=== PATIENT | male | born 1960 | race Caucasian/White ===

== ENCOUNTER → 2016-11-29 | Outpatient (CLI) | payer MEDICAID ==
--- OUTSIDE RECORDS SUMMARY | 2016-11-29 09:59 | XMS REPORT | Continuity of Care Document ---
Author Author Interface Organization Interface Address Unknown Phone Unavailable Problems Problem Status Onset Date Classification Date Reported Comments Source No data available for this section Problem 07/18/2014 [facility] Acute exacerbation of chronic obstructive airways disease (disorder) Active Problem 10/30/2016 [facility] Impaired cognition (finding) Active Problem 10/30/2016 [facility] Severe chronic obstructive pulmonary disease (disorder) Active Problem 10/30/2016 [facility] Acute exacerbation of chronic obstructive airways disease (disorder) Active Problem 10/02/2015 [facility] Impaired cognition (finding) Active Problem 10/02/2015 [facility] Severe chronic obstructive pulmonary disease (disorder) Active Problem 10/02/2015 [facility] Acute exacerbation of chronic obstructive airways disease (disorder) Active Problem 09/12/2014 [facility] Acute exacerbation of chronic obstructive airways disease (disorder) Active Problem 10/05/2014 [facility] Obstructive chronic bronchitis with (acute) exacerbation 08/04/2014 Diagnosis 08/08/2014 [facility] Unspecified persistent mental disorders due to conditions classified elsewhere 10/28/2014 Diagnosis 11/01/2014 [facility] Chronic airway obstruction, not elsewhere classified 10/28/2014 Diagnosis 11/01/2014 [facility] Echocardiogram abnormal (finding) 09/28/2015 Diagnosis [facility] Smoker (finding) 10/12/2015 Diagnosis 10/16/2015 [facility] Severe chronic obstructive pulmonary disease (disorder) 10/12/2015 Diagnosis 10/16/2015 [facility] Benign neoplasm of colon Diagnosis 09/19/2014 [facility] Medications Medication Details Route Status Patient Instructions Ordering Provider Order Date Source No Known Medications No known medications Active [facility] Allergies, Adverse Reactions, Alerts Substance Category Reaction Severity Reaction type Status Date Reported Comments Source Immunizations Immunization Date Given Site Status Last Updated Comments Source pneumococcal polysaccharide PPV23 08/03/2014 Right Deltoid pneumococcal 23-valent vaccine Michael [facility]. influenza virus vaccine 08/03/2014 Right Deltoid influenza virus vaccine Michael [facility]. pneumococcal polysaccharide PPV23 08/03/2014 Right Deltoid pneumococcal 23-valent vaccine Michael [facility]. influenza virus vaccine 08/03/2014 Right Deltoid influenza virus vaccine Michael [facility]. pneumococcal polysaccharide PPV23 08/03/2014 Right Deltoid pneumococcal 23-valent vaccine Michael [facility]. influenza virus vaccine 08/03/2014 Right Deltoid influenza virus vaccine Michael [facility]. pneumococcal polysaccharide PPV23 08/03/2014 Right Deltoid pneumococcal 23-valent vaccine Michael [facility] influenza virus vaccine 08/03/2014 Right Deltoid influenza virus vaccine Michael [facility]. No data available for this section No data available for this section [facility]. Results Order Name Results Value Reference Range Date Interpretation Comments Source Vital Signs Vital Sign Value Date Comments Source Encounters Location Location Details Encounter Type Encounter Number Reason For Visit Attending Provider ADM Date DC Date Status Source [facility] [id number] Outpatient [id number] Shantell Burton 03/03/2014 Active [facility] CD:[id number] Inpatient [id number] Bill Joel 08/02/2014 08/04/2014 Active [facility] in Pulmonary Medicine Cancel/No Show [id number] Francisco Hernadez 08/16/2015 08/16/2015 [facility] [id number] Atul Corona 09/28/2015 [facility] Medicine Clinic [id number] Hermelinda Bautista 10/12/2015 10/13/2015 [facility]orate Clerk in Pulmonary Medicine Cancel/No Show [id number] Francisco Hernadez 08/16/2015 08/15/2015 [facility] Cancel/ No Show [id number] Errol Sanchez 07/28/2015 07/28/2015 [facility] Cancel/ No Show [id number] . [facility] 06/17/2015 06/16/2015 [facility] Clerk in Pulmonary Medicine Cancel/No Show [id number] Lasha Osmani 04/21/2015 04/21/2015 [facility] Medicine Clinic [id number] Katerin Dean 10/27/2014 10/11/2014 [facility] Cancel/No Show [id number] Sánchez [facility] 09/09/2014 09/08/2014 [facility] [id number] Atul Cj 09/30/2014 10/02/2014 [facility] Pul[facility] Medicine Clinic [id number] Janett Fang 10/13/2014 09/29/2014 [facility] [id number] [facility] 09/15/2014 09/16/2014 [facility]. Outpatient [id number] Atul Corona 07/14/2014 07/15/2014 [facility] [id number] Atul Corona 08/02/2014 08/04/2014 [facility]. Emergency [id number] Raz Chavez 08/18/2014 08/20/2014 [facility] CD:[id number] Outpatient [id number] [facility] 09/15/2014 09/15/2014 Active [facility]orate Clerk in Pulmonary Medicine Cancel/No Show [id number] 10/28/2014 10/28/2014 [facility] [id number] Outpatient [id number] Atul Corona 07/14/2014 Active [facility] [id number] Clinic ( Outpatient) [id number] Errol Sanchez 07/28/2015 Active [facility]. Outpatient [id number] Shantell Sab 03/03/2014 03/04/2014 [facility] CD:[id number] Emergency [id number] Raz Chavez 08/18/2014 08/18/2014 Active [facility] in Pul[facility] Medicine Clinic [id number] Lasha Keen 10/28/2014 10/29/2014 [facility] CD:[id number] Clinic ( Outpatient) [id number] Delonte Adrian 09/28/2015 Active [facility] CD:[id number] Outpatient [id number] Atul Corona 09/30/201408/2014 Active [facility] [id number] Clinic ( Outpatient) [id number] Hermelinda Bautista 10/12/2015 Active [facility] CD:[id number] Clinic ( Outpatient) [id number] Francisco Hernadez 08/16/2015 Active [facility] CD:[id number] Clinic ( Outpatient) [id number] Francisco Hernadez 08/16/2015 Active [facility] CD:[id number] Clinic ( Outpatient) [id number] . [facility] IN[facility] 06/16/2015 Active [facility] [id number] Clinic ( Outpatient) [id number] Lasha Keen 04/21/2015 Active [facility] CD:[id number] Clinic ( Outpatient) [id number] 10/28/2014 Active [facility] [id number] Clinic ( Outpatient) [id number] Lasha Keen 10/28/2014 Active [facility] CD:[id number] Clinic ( Outpatient) [id number] Katerin Dean 10/27/2014 Active [facility] [id number] Clinic ( Outpatient) [id number] Janett Fang 10/13/2014 Active [facility] CD:[id number] Clinic ( Outpatient) [id number] Sánchez Real 09/09/2014 Active [facility] CD:[id number] Outpatient [id number] Shantell Josephine 12/11/2013 Active [facility] [id number] Clinic ( Outpatient) [id number] Lasha Keen 10/26/2016 Active [facility] Cancel/No Show [id number] Lasha Osmani 10/26/2016 10/26/2016 [facility] Procedures Procedure Code Date Perfomer Comments Source No data available for this section [facility]. Echocardiogram<sup>1</sup> 06/15/2015 EF 45% </br>[facility]. Colonoscopy, flexible, proximal to splenic flexure; diagnostic, with or without collection of specimen(s) by brushing or washing, with or without colon decompression (separate procedure) 09/15/2014 [facility]. left and right knee surgery [facility].
--- NOTE | 2016-11-29 14:34 | Diagnostic Imaging Report ---
INDICATION: COPD, dyspnea, respiratory distress. COMPARISON: 09/12/2016. FINDINGS: Chronic rib deformities on the right are stable. New infiltrate in the lower lobe is seen in the lateral view; however, it is not clearly identified in the frontal projection and does not extend to the diaphragm. I am uncertain if this is left or right. The upper lobes are clear. The heart size is normal. IMPRESSION: New lower lobe infiltrate posteriorly is seen only on the lateral view compatible with pneumonia. Followup PA and lateral radiographs to confirm its resolution recommended. This finding is superimposed upon chronic COPD and chronic rib deformities; otherwise, unchanged. Dictated by: Dictated on workstation # [id number]
== END ==
LOC: RAD 09:54
PROVIDERS: ATTEND Internal Medicine Critical Care Medicine
DX: J43.9 Emphysema, unspecified (principal); R06.00 Dyspnea, unspecified; E66.9 Obesity, unspecified
CPT/HCPCS: 71020

== ENCOUNTER → 2016-12-07 | Outpatient (CLI) | payer MEDICAID ==
[~2016-12-07] MED LIST: RT-ALBUTEROL SULF 2.5 MG/3 ML PRE-MIX VIAL INH ONE
== END ==
LOC: RT 12:44
PROVIDERS: ATTEND Internal Medicine Critical Care Medicine
DX: J43.9 Emphysema, unspecified (principal); R06.00 Dyspnea, unspecified; E66.9 Obesity, unspecified
CPT/HCPCS: 94060; 94640; 94726; 94729

== ENCOUNTER → 2017-01-10 | Outpatient (CLI) | payer MEDICAID ==
--- NOTE | 2017-01-10 13:40 | Diagnostic Imaging Report ---
INDICATION: Dyspnea and COPD. PA and lateral chest obtained at 12:51 p.m. and compared with 11/29/2016. Heart is normal in size. Mediastinal silhouette is unremarkable. There are mild chronic-appearing increased interstitial markings. There is no new infiltrate or pneumothorax or pleural fluid. There is hyperinflation compatible with COPD. There are old bilateral rib fractures. IMPRESSION: Chronic changes appear similar to 11/29/2016. No acute abnormalities visualized. Dictated by: Dictated on workstation # [id number]
== END ==
LOC: RAD 12:24
PROVIDERS: ATTEND Internal Medicine Critical Care Medicine
DX: J44.9 Chronic obstructive pulmonary disease, unspecified (principal); F41.9 Anxiety disorder, unspecified; E66.9 Obesity, unspecified
CPT/HCPCS: 71020

== ENCOUNTER → 2017-05-29 | Outpatient (CLI) | payer MEDICAID ==
--- NOTE | 2017-05-29 17:08 | Diagnostic Imaging Report ---
INDICATION: Wheezing, COPD. FINDINGS: PA and lateral chest shows the heart size and vascularity to be normal. There is obstructive airway disease with no mass or infiltrate seen. There is no pleural effusion. IMPRESSION: COPD. No acute abnormality is seen. There is no change from 01/10/2017. Dictated by: Dictated on workstation # [id number]
== END ==
LOC: RAD 16:43
PROVIDERS: ATTEND Family Medicine
DX: J44.9 Chronic obstructive pulmonary disease, unspecified (principal)
CPT/HCPCS: 71020

== ENCOUNTER → 2017-06-06 | Outpatient (CLI) | payer MEDICAID ==
--- NOTE | 2017-06-06 11:17 | Diagnostic Imaging Report ---
Hepatic ultrasound. INDICATION: Hepatitis C. There are no prior studies available for comparison. The liver is at the upper limits of normal measuring 17 cm in maximum dimension. There is no focal mass involving the liver, and the biliary tree is not abnormally dilated. Spectral and color flow imaging of the portal vein shows that the vein is patent and that there is normal directional flow within the vein. The gallbladder is not well visualized, and there is considerable shadowing coming from the gallbladder fossa. I do suspect that the gallbladder is filled with calculi. Because of the shadowing, the gallbladder wall and the common bile duct could not be visualized either. If there is clinical concern regarding an acute abnormality of the gallbladder, then a nuclear medicine hepatobiliary scan would be recommended for further study. The right kidney is unremarkable. The pancreas was obscured by bowel gas. IMPRESSION: 1. The liver is not enlarged, and there is no focal abnormality involving the liver. 2. The gallbladder is most likely filled with calculi. Additional considerations and recommendations as above. Dictated by: Dictated on workstation # [id number]
== END ==
LOC: RAD 09:41
PROVIDERS: ATTEND Internal Medicine Gastroenterology
DX: B18.2 Chronic viral hepatitis C (principal); K87 Disorders of gallbladder, biliary tract and pancreas in diseases classified elsewhere
CPT/HCPCS: 76705

== ENCOUNTER 2017-06-18 07:54 | Day surgery (SDC) | payer MEDICAID ==
[2017-06-18] VITALS (10 sets, daily range): BP systolic 108–132; BP diastolic 65–88
[~2017-06-18] VITALS: Ht 171.4 cm; Wt 98.0 kg
[2017-06-18] MEDS ORDERED: HEParin (CATH LAB) 2,000 ML IV ONE (07:57)
[2017-06-18] MEDS ORDERED: NS IV 1000 ML 1,000 ML ONE (07:57)
--- OUTSIDE RECORDS SUMMARY | 2017-06-18 08:00 | XMS REPORT | Continuity of Care Document ---
Author Author [employer] Organization [employer] Address Unknown Phone Unavailable Care Team Providers Care Special Education Kindergarten Teacher Name Role Phone [employer] Unavailable Unavailable Problems Problem Status Onset Date Classification Date Reported Comments Source Smoker (finding) 10/12/2015 Diagnosis 10/16/2015 [facility] Severe chronic obstructive pulmonary disease (disorder) 10/12/2015 Diagnosis 10/16/2015 [facility] Echocardiogram abnormal (finding) 09/28/2015 Diagnosis [facility] Unspecified persistent mental disorders due to conditions classified elsewhere 10/28/2014 Diagnosis 11/01/2014 [facility] Chronic airway obstruction, not elsewhere classified 10/28/2014 Diagnosis 11/01/2014 [facility] Benign neoplasm of colon Diagnosis 09/19/2014 [facility] Obstructive chronic bronchitis with (acute) exacerbation 08/04/2014 Diagnosis 08/08/2014 [facility] Acute exacerbation of chronic obstructive airways disease (disorder) Active Problem 10/02/2015 [facility], [facility], [facility], [facility] Impaired cognition (finding) Active Problem 10/02/2015 [facility], [facility] Severe chronic obstructive pulmonary disease (disorder) Active Problem 10/02/2015 [facility], [facility] No data available for this section Problem 07/18/2014 [facility] Medications Medication Details Route Status Patient Instructions Ordering Provider Order Date Source No Known Medications No known medications Active [facility] Allergies, Adverse Reactions, Alerts Immunizations Immunization Date Given Site Status Last Updated Comments Source pneumococcal polysaccharide PPV23 08/03/2014 Right Deltoid pneumococcal 23-valent vaccine Michael [facility], [facility], [facility], [facility], [facility]. influenza virus vaccine 08/03/2014 Right [facility]to[facility], [facility], [facility], [facility], [facility]. No data available for this section No data available for this section [facility]. Results Vital Signs Encounters Location Location Details Encounter Type Encounter Number Reason For Visit Attending Provider ADM Date DC Date Status Source [facility] CD:[id number] Outpatient [id number] [facility] 12/11/2013 Active [facility] CD:[id number] Outpatient [id number] [facility] 03/03/2014 Active [facility] CD:[id number] Outpatient [id number] Atul Corona 07/14/2014 [facility], [facility]. [facility] CD:[id number] Inpatient [id number] Bill Joel 08/02/2014 08/04/2014 [facility] CD:[id number] Emergency [id number] Raz Chavez 08/18/2014 08/18/2014 Active [facility], [facility] Cancel/No Show [id number] [facility] 09/09/2014 09/08/2014 [facility] CD:[id number] Outpatient [id number] Sánchez Fleming [facility] 09/15/2014 09/15/2014 Active [facility], [facility]. [facility] CD:[id number] Outpatient [id number] Atul Corona 09/30/201408/2014 Active [facility], [facility]. [employer] [facility] [facility] in Pulmonary Medicine Clinic [id number] Janett Fang 10/13/2014 09/29/2014 [facility] [employer] [facility] Pul[facility] Medicine Clinic [id number] Katerin Dean 10/27/2014 10/11/2014 [facility] [employer] [facility] in Pulmonary Medicine Cancel/No Show [id number] 10/28/2014 10/28/2014 [facility] [employer] [facility] Pulmonary Medicine Clinic [id number] Lasha Keen 10/28/2014 10/29/2014 [facility] CD:[id number] Clinic ( Outpatient) [id number] Lasha Keen 04/21/2015 Active [facility] CD:[id number] Clinic ( Outpatient) [id number] . INR Clinic 06/16/2015 Active [facility] CD:[id number] Clinic ( Outpatient) [id number] Errol Sanchez 07/28/2015 Active [facility] CD:[id number] Clinic ( Outpatient) [id number] Nolan Hernadez 08/16/2015 Active [facility] [employer] Mixer in Pulmonary Medicine Cancel/No Show [id number] Francisco Hernadez 08/16/2015 08/15/2015 [facility] Card[facility] Services Clinic [id number] Atul Corona 09/28/2015 [facility] [employer] Mix[facility] in Pulmonary Medicine Clinic [id number] Hermelinda Bautista 10/12/2015 10/13/2015 [facility] Cancel/No Show [id number] Lasha Keen 10/26/2016 10/26/2016 [facility] Procedures Procedure Code Date Perfomer Comments Source Echocardiogram<sup>1</sup> 06/15/2015 EF 45% [facility] Services Colonoscopy, flexible, proximal to splenic flexure; diagnostic, with or without collection of specimen(s) by brushing or washing, with or without colon decompression (separate procedure) 09/15/2014 [facility], [facility]. No data available for this section [facility] left and right knee surgery [facility] Plan of Care Social History Assessment and Plan Family History Value Date Source Advance Directives Order Name Results Value Date Source
--- OUTSIDE RECORDS SUMMARY | 2017-06-18 08:01 | XMS REPORT | Clinical Summary ---
Author Author [facility] Organization [facility] Address Unknown Phone Unavailable Care Team Providers Care Ticket Agent Name Role Phone PCP Unavailable Source Comments Some departments are not documenting in the electronic medical record. If you do not see the information that you expected, contact Release of Information in the Health Information Management department at [phone] for further assistance in locating additional records.[facility] Allergies No Known Allergies Current Medications Prescription Sig. Disp. Refills Start End Date Status Date ABILIFY PO 10/08/20 Active 07 Active Problems Not on file Social History Tobacco Use Types Packs/Day Years Used Date Current Every Day Smoker 1 Sex Assigned at Date Recorded Not on file Last Filed Vital Signs Vital Sign Reading Time Taken Blood Pressure 133/71 10/08/2007 11:36 PM [employer] Pulse 94 10/08/2007 11:36 PM [employer] Temperature 36.1 C (97 F) 10/08/2007 11:36 PM [employer] Respiratory Rate - - Oxygen Saturation 93% 10/08/2007 11:36 PM [employer] Inhaled Oxygen - - Concentration Weight - - Height - - Body Mass Index - - Plan of Treatment Health Maintenance Due Date Last Done Comments HEPATITIS C SCREENING 1958 PHYSICAL (COMPREHENSIVE) 1965 EXAM PERTUSSIS VACCINE 1969 TETANUS VACCINE 1975 COLORECTAL CANCER 2008 SCREENING INFLUENZA VACCINE 06/21/2017 Results Not on filefrom Last 3 Months
[2017-06-18] MEDS ORDERED: NS IV 1000 ML 1,000 ML IV SCH ×2 (08:30→10:50)
[2017-06-18 08:49] LABS: MEAN PLATELET VOLUME 10.9 FL (7.4-10.4); RED BLOOD COUNT 5.69 10^6/uL (4.35-5.85); RED CELL DISTRIBUTION WIDTH 13.6 % (10.0-14.5); WHITE BLOOD COUNT 8.7 10^3/uL (4.3-11.0)
[2017-06-18 08:59] LABS: INR 0.9 (0.8-1.4); PROTHROMBIN TIME PATIENT 11.8 SEC (12.2-14.7)
[2017-06-18 09:08] LABS: ALANINE AMINOTRANSFERASE 93 U/L (0-55); ALBUMIN 3.4 GM/DL (3.2-4.5); ANION GAP 8 MMOL/L (5-14); ASPARTATE AMINO TRANSFERASE 119 U/L (5-34); BILIRUBIN,TOTAL 0.9 MG/DL (0.1-1.0); BLOOD UREA NITROGEN 12 MG/DL (7-18); BUN/CREATININE RATIO 15; CARBON DIOXIDE 30 MMOL/L (21-32); CHLORIDE 103 MMOL/L (98-107); CHOLESTEROL 137 MG/DL (< 200); CREATININE SERUM 0.82 MG/DL (0.60-1.30); DIRECT LDL 89 MG/DL (1-129); GFR ESTIMATED > 60; GLUCOSE 110 MG/DL (70-105); POTASSIUM 4.1 MMOL/L (3.6-5.0); SODIUM 141 MMOL/L (135-145); TOTAL PROTEIN 7.2 GM/DL (6.4-8.2); TRIGLYCERIDES 137 MG/DL (<150); VLDL CHOLESTEROL 27 MG/DL (5-40)
[2017-06-18 09:28] LABS: THYROID STIMULATING HORMONE 2.37 UIU/ML (0.35-4.94)
[2017-06-18] MEDS ORDERED: PANT40TA2 PO (09:50)
[2017-06-18] MEDS ORDERED: ASPI-983 PO (09:50)
[2017-06-18] MEDS ORDERED: BUDE10.2 IH (09:50)
[2017-06-18] MEDS ORDERED: FLUT1DIS26 IH (09:50)
[2017-06-18] MEDS ORDERED: FURO-125 PO (09:50)
[2017-06-18] MEDS ORDERED: ESCI20TA PO (09:50)
[2017-06-18] MEDS ORDERED: BENZ200C51 PO (09:50)
[2017-06-18] MEDS ORDERED: ACET325T38 PO (09:50)
[2017-06-18] MEDS ORDERED: LISI2.5T PO (09:50)
[2017-06-18] MEDS ORDERED: MULT-593 PO (09:50)
[2017-06-18] MEDS ORDERED: METO-333 PO (09:50)
[2017-06-18] MEDS ORDERED: IPRA3AMP IH (09:50)
[2017-06-18] MEDS ORDERED: ARPZ20T PO (09:50)
[2017-06-18] MEDS ORDERED: fentaNYL INJECTION 100 MCG/2 ML AMP ONE (09:53)
[2017-06-18] MEDS ORDERED: MIDAZOLAM 5 MG/5 ML (VERSED) VIAL ONE (09:53)
[2017-06-18] MEDS ORDERED: diphenhydrAMINE 50 MG/ML INJ (BENADRYL) ONE (09:53)
--- NOTE | 2017-06-18 10:26 | Cardiac Procedure Note-CS/ASA ---
Pre-Procedure Note Pre-Op Procedure Note H&P Reviewed The H&P was reviewed, patient examined and no changes noted. Date H&P Reviewed: Jun 18, 2017 Time H&P Reviewed: 10:25 Conscious Sedation Pre-Proced Time Reviewed: 10:25 ASA Class: 3 Airway Mallampati Classification: (nome appropriate class) I. II. III, IV Lungs Heart ASA score ASA 1: a normal healthy patient ASA 2: a patient with a mild systemic disease (mid diabetes, controlled hypertension, obesity ASA 3: a patient with a severe systemic disease that limits activity (angina , COPD, prior Myocardial infarction) ASA 4: a patient with an incapacitating disease that is a constant threat to life (CHF, renal failure) ASA 5: a moribund patient not expected to survive 24 hrs. (ruptured aneurysm) ASA 6: a declared brain patient whose organs are being harvested. For emergent operations, add the letter E after the classification Grade 1 Sedation Plan: Analgesia, Amnesia, Plan communicated to team members, Discussed options with patient/fam, Discussed risks with patient/fam Note The patient is an appropriate candidate to undergo the planned procedure, sedation, and anesthesia. The patient immediately re-assessed prior to indication. ERIN HUTCHINSON MD FACP FAC [facility]S Jun 18, 2017 10:25
--- NOTE | 2017-06-18 10:53 | Discharge Inst-Post CATH ---
Discharge Inst-CATH Post Cardiac Cath D/C Inst Follow Up/Plan F/u with Dr Poe in 2 weeks CARDIAC CATH DISCHARGE INSTRUCTIONS *Hold Metformin for 48 hours post heart cath. ACTIVITY * Go Home directly and rest. * Limit activity of the leg (or wrist if it was used) for 7 days including aerobics, swimming, jogging, bicycling, etc. * Restrict stair-climbing for 7 days if possible, if not, climb up with your non -cath leg, then bring together on the same step. * Avoid lifting, pushing, pulling or excessive movement of the affected extremity for 7 days. * Customary sexual activity may be resumed after 2 days-use caution not to use a position that strains or causes pain to the affected extremity. * No driving for 24 hours. * NO SMOKING. * Avoid straining for bowel movements for 7 days. * Gentle walking on level ground is allowed. * Returning to work will depend on the type of procedure and the results. Your doctor will discuss this with you. CALL YOUR DOCTOR FOR ANY OF THE FOLLOWING: *If bleeding from the puncture site occurs- Apply gentle pressure to site with clean cloth and call your doctor or EMS. * If a knot or lump forms under the skin, increases in size, or causes pain. * If bruising appears to be worsening or moving further down your leg instead of disappearing. * Temperature above 101 F. CARE OF YOUR GROIN INCISION; * Bruising or purple discoloration of the skin near the puncture site is common. * You may shower only, no bathtub bathing for 5 days. Be careful to avoid slipping as your leg may feel stiff. * If a closure device was used on your femoral artery, please see the attached guide regarding care of the device and your leg. * REMOVE the dressing from your groin the next day after your procedure in the shower. CARE OF YOUR WRIST INCISION; * Bruising or purple discoloration of the skin near the puncture site is common. * You may shower. * DO NOT submerge wrist. * Remove dressing in 24 hours. ERIN POE MD [facility]S Jun 18, 2017 10:53
--- NOTE | 2017-06-18 10:54 | Discharge Inst-Cardiology ---
Discharge Inst-Cardiac Discharge Medications Continued Medications: Acetaminophen (Tylenol) 325 Mg Tablet 650 MG PO Q6H PRN for PAIN-MILD, TAB TAKES 2 (325MG) TABLETS Aripiprazole (Abilify) 20 Mg Tablet 20 MG PO DAILY, TAB Aspirin (Aspirin EC) 81 Mg Tablet.dr 81 MG PO DAILY, TAB Benzonatate (Benzonatate) 200 Mg Capsule 200 MG PO Q8H PRN for COUGH, CAP Budesonide/Formoterol Fumarate (Symbicort 160-4.5 Mcg Inhaler) 10.2 Gm Hfa.aer.ad 2 PUFF IH BID, INHALER Escitalopram Oxalate (Lexapro) 20 Mg Tablet 40 MG PO DAILY, TAB TAKES 2 (20MG) TABLETS Fluticasone/Salmeterol (Advair 250-50 Diskus) 1 Each Blst.w.dev 1 PUFF IH BID Furosemide (Lasix) 20 Mg Tablet 20 MG PO DAILY, TAB Ipratropium/Albuterol Sulfate (Iprat-Albut 0.5-3(2.5) mg/3 ml) 3 Ml Ampul.neb 3 ML IH Q6H, EACH Lisinopril (Lisinopril) 2.5 Mg Tablet 2.5 MG PO HS, TAB Metoprolol Tartrate (Metoprolol Tartrate) 25 Mg Tablet 25 MG PO BID, TAB Multivitamin with Minerals (Multiple Vitamin) 1 Each Tablet 1 TAB PO DAILY, TAB Pantoprazole Sodium (Protonix) 40 Mg Tablet.dr 40 MG PO DAILY, TAB Orders-Post D/C & Referrals Pneu Vac Indicated: Yes ERIN HUTCHINSON MD FACP [facility] Jun 18, 2017 10:54
[2017-06-18] MEDS ORDERED: PATIENT MAY USE OWN MEDS, ALL PO SCH (11:00)
--- NOTE | 2017-06-18 11:47 | CARDIAC CATHETERIZATION ---
DATE OF SERVICE: 06/18/2017 CARDIAC CATHETERIZATION The patient is a 57-year-old gentleman who has a history of congestive heart failure and who has been experiencing symptoms suggestive of new onset of angina. Cardiac catheterization was carried out today after having obtained an informed consent. PROCEDURE: He was brought to the cardiac catheterization laboratory in a fasting state. Right groin was prepared and draped in the usual sterile fashion. Lidocaine 1% for local anesthesia. Modified Seldinger technique was used to advance a 5-Bermudian sheath in the right femoral artery. A 5-Bermudian JL4 catheter, left coronary angiography and 5-Bermudian JR4 catheter, right coronary angiography. A 5-Bermudian pigtail catheter was used for left heart catheterization and left ventricular angiography. A 5-Bermudian pigtail catheter was pulled back to the aortic arch and aortic arch angiography was performed. Angiography of the right femoral artery had been carried out through the sheath at the time of sheath insertion. At the end of the procedure, Mynx was used to achieve hemostasis following sheath removal. He tolerated the procedure well. HEMODYNAMICS: Left ventricular end-diastolic pressure following coronary angiography was 13 mmHg. There was no significant pressure gradient on pullback across the aortic valve. Ascending aortic pressure was 104/64 with a mean of 68 mmHg. LEFT VENTRICULAR ANGIOGRAPHY: Left ventricular angiography was carried out in the right anterior oblique projection. Global left ventricular systolic function normal. No regional wall motion abnormalities are seen. Left ventricular ejection fraction is approximately 55% to 60%. There does not appear to be significant mitral regurgitation. CORONARY ANGIOGRAPHY: Left main coronary artery, left circumflex, left anterior descending, right coronary all exhibit mild coronary plaques. There is mild coronary calcification. Right coronary artery is dominant. CONCLUSIONS: 1. Angiographically mild coronary artery disease. 2. Normal global left ventricular systolic function with ejection fraction approximately 55 to 60%. 3. Left ventricular end-diastolic pressure at the top limit of normal. 4. No significant mitral regurgitation. DISCUSSION RECOMMENDATIONS: Based on results of this study, his symptoms do not appear to be of cardiac origin at this time. Continuing risk factor modification is advised. Outpatient followup is advised. He is not a suitable candidate for statin therapy because he has some liver enzyme elevation at baseline, for which followup is advised with his family physician. Job ID: [id number] DocumentID: [id number] Dictated Date: 06/18/2017 11:04:49 Vocational Nursing Instructor Date: 06/18/2017 11:47:15 Dictated By: ERIN HUTCHINSON MD, MA, FACP, FACC, MTDD
== END 2017-06-18 15:20 ==
LOC: CATH 07:54
PROVIDERS: ATTEND Internal Medicine Cardiovascular Disease
DX: R07.89 Other chest pain (principal); I25.10 Atherosclerotic heart disease of native coronary artery without angina pectoris; J44.9 Chronic obstructive pulmonary disease, unspecified; I10 Essential (primary) hypertension; F31.9 Bipolar disorder, unspecified; R47.81 Slurred speech; Z72.0 Tobacco use; Z79.899 Other long term (current) drug therapy; Z82.49 Family history of ischemic heart disease and other diseases of the circulatory system
CPT/HCPCS: 36415; 80053; 80061; 84443; 85027; 85610; 85730; 87081; 93458

== ENCOUNTER → 2017-07-22 | Outpatient (CLI) | payer MEDICAID ==
[~2017-07-22] MED LIST changes: +ACET325T38 PO; +ARPZ20T PO; +ASPI-983 PO; +BENZ200C51 PO; +BUDE10.2 IH; +ESCI20TA PO; +FLUT1DIS26 IH; +FURO-125 PO; +IPRA3AMP IH; +LISI2.5T PO; +METO-333 PO; +MULT-593 PO; +PANT40TA2 PO; -RT-ALBUTEROL SULF 2.5 MG/3 ML PRE-MIX VIAL INH ONE
== END ==
LOC: CARD 07:57
PROVIDERS: ATTEND Internal Medicine Cardiovascular Disease
DX: R07.89 Other chest pain (principal); R06.02 Shortness of breath; I10 Essential (primary) hypertension; J44.9 Chronic obstructive pulmonary disease, unspecified; Z72.0 Tobacco use
CPT/HCPCS: 93306

== ENCOUNTER → 2017-07-26 | Outpatient (CLI) | payer MEDICAID ==
--- NOTE | 2017-07-26 15:03 | Diagnostic Imaging Report ---
INDICATION: Wheezing with low-grade fever. History of COPD. COMPARISON: 05/29/2017. FINDINGS: There is obstructive interstitial lung disease. No acute infiltrates are demonstrated. The heart is not enlarged. There is no pulmonary edema. No hilar adenopathy. No pneumothorax or pleural effusion. IMPRESSION: Obstructive interstitial lung disease without acute change. Dictated by: Dictated on workstation # [id number]
== END ==
LOC: RAD 14:13
PROVIDERS: ATTEND Family Medicine
DX: J84.9 Interstitial pulmonary disease, unspecified (principal); J06.9 Acute upper respiratory infection, unspecified
CPT/HCPCS: 71020

== ENCOUNTER 2017-08-01 13:36 | Emergency (ER) | payer MEDICAID ==
[~2017-08-01] VITALS: Ht 170.2 cm; Wt 104.3 kg
--- OUTSIDE RECORDS SUMMARY | 2017-08-01 13:42 | XMS REPORT | Continuity of Care Document ---
Author Author [employer] Organization [employer] Address Unknown Phone Unavailable Care Team Providers Care Instrumental Music Teacher Name Role Phone [employer] Unavailable Unavailable Problems Problem Status Onset Date Classification Date Reported Comments Source Smoker (finding) 10/12/2015 Diagnosis 10/16/2015 [facility] Severe chronic obstructive pulmonary disease (disorder) 10/12/2015 Diagnosis 10/16/2015 [facility] Echocardiogram abnormal (finding) 09/28/2015 Diagnosis [facility] Unspecified persistent mental disorders due to conditions classified elsewhere 10/28/2014 Diagnosis 11/01/2014 [facility] Chronic airway obstruction, not elsewhere classified 10/28/2014 Diagnosis 11/01/2014 [facility] Benign neoplasm of colon Diagnosis 09/19/2014 [facility] Obstructive chronic bronchitis with (acute) exacerbation 08/04/2014 Diagnosis 08/08/2014 [facility] Acute exacerbation of chronic obstructive airways disease (disorder) Active Problem 10/02/2015 [facility], [facility], [facility], [facility] Impaired cognition (finding) Active Problem 10/02/2015 [facility], [facility] Severe chronic obstructive pulmonary disease (disorder) Active Problem 10/02/2015 [facility], [facility] No data available for this section Problem 07/18/2014 [facility] Medications Medication Details Route Status Patient Instructions Ordering Provider Order Date Source No Known Medications No known medications Active [facility] Allergies, Adverse Reactions, Alerts Immunizations Immunization Date Given Site Status Last Updated Comments Source pneumococcal polysaccharide PPV23 08/03/2014 Right Deltoid pneumococcal 23-valent vaccine Michael [facility], [facility], [facility], [facility], [facility]. influenza virus vaccine 08/03/2014 Right Deltoid influenza virus [facility], [facility], [facility], [facility]. No data available for this section No data available for this section [facility]. Results Vital Signs Encounters Location Location Details Encounter Type Encounter Number Reason For Visit Attending Provider ADM Date DC Date Status Source [facility] [id number] Outpatient [id number] [facility] 12/11/2013 Active [facility]. [facility] [id number] Outpatient [id number] [facility] 03/03/[address] [facility] [place] [id number] Outpatient [id number] Atul Corona 07/14/2014 [facility], [facility]. [facility] [id number] Inpatient [id number] Bill Joel 08/02/2014 08/04/2014 [facility] [id number] Emergency [id number] Raz Chavez 08/18/2014 08/18/2014 Active [facility], [facility]ancel[facility]No Show [id number] [facility] 09/09/2014 09/08/2014 [facility] [id number] Outpatient [id number] Sánchez Fleming [facility] 09/15/2014 09/15/2014 Active [facility], [facility]. [facility] [id number] Outpatient [id number] Atul Corona 09/30/201408/2014 Active [facility], [facility]. [facility] [id number] Janett Fang 10/13/2014 09/29/2014 [facility] [id number] Katerin Dean 10/27/2014 10/11/2014 [facility] Cancel/No Show [id number] 10/28/2014 10/28/2014 [facility] [id number] Lasha Keen 10/28/2014 10/29/2014 [facility] [id number] Clinic ( Outpatient) [id number] Lasha Keen 04/21/2015 Active [facility] [id number] Clinic ( Outpatient) [id number] . INR Clinic 06/16/2015 Active [facility] [id number] Clinic ( Outpatient) [id number] Errol Sanchez 07/28/2015 Active [facility] [id number] Clinic ( Outpatient) [id number] Nolan Hernadez 08/16/2015 Active [facility] Cancel/No Show [id number] Francisco Hernadez 08/16/2015 08/15/2015 [facility] Clinic [id number] Atul Corona 09/28/2015 [facility] [id number] Hermelinda Bautista 10/12/2015 10/13/2015 [facility] Cancel/No Show [id number] Lasha Keen 10/26/2016 10/26/2016 [facility] Procedures Procedure Code Date Perfomer Comments Source Echocardiogram<sup>1</sup> 06/15/2015 EF 45% [facility] Colonoscopy, flexible, proximal to splenic flexure; diagnostic, with or without collection of specimen(s) by brushing or washing, with or without colon decompression (separate procedure) 09/15/2014 [facility], [facility]. No data available for this section [facility] left and right knee surgery [facility] Plan of Care Social History Assessment and Plan Family History Value Date Source Advance Directives Order Name Results Value Date Source
--- OUTSIDE RECORDS SUMMARY | 2017-08-01 13:45 | XMS REPORT | Clinical Summary ---
Author Author [facility] Organization [facility] Address Unknown Phone Unavailable Care Team Providers Care Cytotechnologist/Cytology Supervisor Name Role Phone PCP Unavailable Source Comments Some departments are not documenting in the electronic medical record. If you do not see the information that you expected, contact Release of Information in the Health Information Management department at [phone] for further assistance in locating additional records.[facility] Allergies No Known Allergies Current Medications Prescription Sig. Disp. Refills Start End Date Status Date ABILIFY PO 10/08/20 Active 07 Active Problems Not on file Social History Tobacco Use Types Packs/Day Years Used Date Current Every Day Smoker 1 Sex Assigned at Date Recorded Not on file Last Filed Vital Signs Vital Sign Reading Time Taken Blood Pressure 133/71 10/08/2007 11:36 PM BATTERY TECHNICIAN Pulse 94 10/08/2007 11:36 PM BATTERY TECHNICIAN Temperature 36.1 C (97 F) 10/08/2007 11:36 PM BATTERY TECHNICIAN Respiratory Rate - - Oxygen Saturation 93% 10/08/2007 11:36 PM BATTERY TECHNICIAN Inhaled Oxygen - - Concentration Weight - - Height - - Body Mass Index - - Plan of Treatment Health Maintenance Due Date Last Done Comments HEPATITIS C SCREENING 1960 PHYSICAL (COMPREHENSIVE) 1965 EXAM PERTUSSIS VACCINE 1969 TETANUS VACCINE 1975 COLORECTAL CANCER 2008 SCREENING INFLUENZA VACCINE 07/21/2017 Results Not on filefrom Last 3 Months
[2017-08-01] MEDS ORDERED: RT-ALBUTEROL/IPRATROPIUM 3 ML (DUONEB) VIAL INH ONE (15:15)
--- NOTE | 2017-08-01 15:26 | Diagnostic Imaging Report ---
PA and lateral views of the chest INDICATION: Fall. Findings: The lungs are clear. The heart size is normal. There is no effusion or pneumothorax The mediastinum and cailin appear unremarkable. Old posterior upper right rib fractures are seen. IMPRESSION: No acute process. Dictated by: Dictated on workstation # [id number]
--- NOTE | 2017-08-01 15:34 | Diagnostic Imaging Report ---
PROCEDURE: CT head without contrast. TECHNIQUE: Multiple contiguous axial images were obtained through the brain without the use of intravenous contrast. INDICATION: Fall. FINDINGS: There is no intracranial hemorrhage, edema or mass effect. The brain parenchyma and umanzor-white matter differentiation is preserved. No hydrocephalus. No extra-axial fluid collection seen. The calvarium, the paranasal sinuses and orbits appear grossly unremarkable. There is mucosal thickening seen in the right maxillary sinus. IMPRESSION: No intracranial abnormality. Dictated by: Dictated on workstation # [id number]
--- NOTE | 2017-08-01 15:51 | ED Head Injury ---
General Chief Complaint: Head/Cervical Problems Stated Complaint: HEAD INJ/FALL Nursing Triage Note: Pt here from [facility] [place] w/ staff. Staff reports pt was standing at the desk eating a snack when he began to choke. Pt tried to backup to the wall and fell, hitting the back of his head. Staff reports pt has hematoma to back of head. Staff reports they did have to perform the heimlich maneuver on the pt. Pt c/o pain to R side and back of head. Pt denies SOA at this time. History of Present Illness Time seen by provider: 14:30 Initial Comments Patient is a resident of [facility] [place], operated by [facility], he is on a strict pured diet and the staff believe he was eating pretzels in his room. He came to the desk to go out to smoke and began choking. He backed up to the wall to avoid falling and lost his balance going backwards hitting his posterior head on the wall. The staff helped him he was able to cough and they also did the Heimlich maneuver. The pretzels were evacuated from his mouth. He had no changes in his respiratory or mental status. But complained of the occipital head pain on the left.. Occurred: just prior to arrival Severity: mild Location: occipital Method of Injury: fell Loss of Consciousness: no loss of consciousness Associated Systoms: Denies Symptoms Allergies and Home Medications Allergies Coded Allergies: No Known Drug Allergies (Unverified , 12/07/16) Home Medications Acetaminophen 325 Mg Tablet, 650 MG PO Q6H PRN for PAIN-MILD, (Reported) TAKES 2 (325MG) TABLETS Aripiprazole 20 Mg Tablet, 20 MG PO DAILY, (Reported) Aspirin 81 Mg Tablet.dr, 81 MG PO DAILY, (Reported) Benzonatate 200 Mg Capsule, 200 MG PO Q8H PRN for COUGH, (Reported) Budesonide/Formoterol Fumarate 10.2 Gm Hfa.aer.ad, 2 PUFF IH BID, (Reported) Escitalopram Oxalate 20 Mg Tablet, 40 MG PO DAILY, (Reported) TAKES 2 (20MG) TABLETS Fluticasone/Salmeterol 1 Each Blst.w.dev, 1 PUFF IH BID, (Reported) Furosemide 20 Mg Tablet, 20 MG PO DAILY, (Reported) Ipratropium/Albuterol Sulfate 3 Ml Ampul.neb, 3 ML IH Q6H, (Reported) Lisinopril 2.5 Mg Tablet, 2.5 MG PO HS, (Reported) Metoprolol Tartrate 25 Mg Tablet, 25 MG PO BID, (Reported) Multivitamin with Minerals 1 Each Tablet, 1 TAB PO DAILY, (Reported) Pantoprazole Sodium 40 Mg Tablet.dr, 40 MG PO DAILY, (Reported) Constitutional: no symptoms reported, see HPI Eyes: No Symptoms Reported, See HPI Respiratory: see HPI, wheezing (chronic) Cardiovascular: no symptoms reported, see HPI Gastrointestinal: no symptoms reported, see HPI Genitourinary: no symptoms reported, see HPI All Other Systems Reviewed Negative Unless Noted: Yes Past Xrjsoza-Grghvy-Metyko Hx Patient Social History Alcohol Use: Denies Use Recreational Drug Use: Yes (COCAINE IN PAST) Smoking Status: Current Everyday Smoker Type Used: Cigarettes Recent Foreign Travel: No Contact w/Someone Who Travel: No Recent Infectious Disease Expo: No Surgeries History of Surgeries: No Respiratory History of Respiratory Disorde: Yes Respiratory Disorders: COPD Cardiovascular History of Cardiac Disorders: Yes Gastrointestinal History of Gastrointestinal Di: Yes Gastrointestinal Disorders: Gastroesophageal Reflux Cancer Cancer: Colon Psychosocial History of Psychiatric Problem: Yes Behavioral Health Disorders: Depression Blood Transfusions History of Blood Disorders: Yes (HEP C ?) Reviewed Nursing Assessment Reviewed/Agree w Nursing PMH: Yes Physical Exam Vital Signs Vital Sign - Last 12Hours 08/01/17 14:08 Temp 97.9 Pulse 70 Resp 18 B/P (MAP) 110/61 Pulse Ox 91 O2 Delivery Nasal Cannula O2 Flow Rate 2.00 Capillary Refill : Less Than 3 Seconds General Appearance: WD/WN, no apparent distress HEENT: PERRL/EOMI, normal ENT inspection, TMs normal, pharynx normal Neck: non-tender, full range of motion, supple, normal inspection Cardiovascular: normal peripheral pulses, regular rate, rhythm Respiratory: chest non-tender, no respiratory distress, rhonchi, wheezing Gastrointestinal: normal bowel sounds, non tender, soft Back: normal inspection, no CVA tenderness, no vertebral tenderness Extremities: normal range of motion, non-tender, normal inspection Psychiatric: alert Crainal Nerves: normal hearing, normal speech, PERRL Coordination/Gait: normal gait Motor/Sensory: no motor deficit, no sensory deficit, no pronator drift Skin: normal color, warm/dry, other (small hematoma to the left occipital region, mild tenderness in this region.) [place] Coma Score Best Eye Response: (4) Open Spontaneously Best Verbal Response: (5) Oriented Best Motor Response: (6) Obeys Commands Lyubov Total: 15 Progress/Results/Core Measures Results/Orders My Orders Orders - CANDY ARZATE Ct Head Wo (08/01/17 14:21) Chest Pa/Lat (2 View) (08/01/17 14:49) Rt Request For Service (08/01/17 15:13) Albuterol/Ipra Inhalation Soln (Duoneb I (08/01/17 15:15) Svn Sm Volume Nebulizer Rt-Rfs (08/01/17 15:13) Medications Given in ED Current Medications Medications Dose Ordered Sig/Mi Route Start Time Stop Time Status Last Admin Dose Admin Albuterol/ Ipratropium 3 ml ONCE ONCE INH 08/01/17 15:15 08/01/17 15:16 DC 08/01/17 15:19 3 ML Vital Signs/I&O Vital Sign - Last 12Hours 08/01/17 08/01/17 08/01/17 08/01/17 14:08 15:21 15:31 16:30 Temp 97.9 97.9 Pulse 70 70 Resp 18 18 B/P (MAP) 110/61 Pulse Ox 91 91 O2 Delivery Nasal Cannula Room Air Room Air Room Air O2 Flow Rate 2.00 2.00 Blood Pressure Mean: 77 Progress Note : Time: 14:30 Progress Note Initial evaluation completed, recommended CT head and chest x-ray for risk of aspiration. 1515 DuoNeb treatment with RT, trace improvement after first treatment. Second treatment given and improved air movement noted with less rhonchi and wheezing. Staff present from lung term care facility reports he chronically has wheezing. 1530 chest x-ray and CT head negative for acute pathology. 1545 discharge planning to return to lung term care facility reviewed with the patient and staff, all questions answered. Diagnostic Imaging Diagonstic Imaging: Xray Plain Films/CT/US/NM/MRI: chest Comments NAME: LUIS MANUEL RETANA [facility] REC#: [id number] PT STATUS: REG ER : 1960 PHYSICIAN: CANDY ARZATE ADMIT DATE: 08/01/17/ER Signed Date of Exam: 08/01/17 CHEST PA/LAT (2 VIEW) PA and lateral views of the chest INDICATION: Fall. Findings: The lungs are clear. The heart size is normal. There is no effusion or pneumothorax The mediastinum and cailin appear unremarkable. Old posterior upper right rib fractures are seen. IMPRESSION: No acute process. Dictated by: Dictated on workstation # [id number] Dict: 08/01/17 1514 Trans: 08/01/17 153 Interpreted by: LORI WILSON MD Electronically signed by: LORI WILSON MD 08/01/171530 Reviewed: Reviewed by [place] Diagonstic Imaging: CT Plain Films/CT/US/NM/MRI: head Comments NAME: LAINEYLUIS MANUEL Oates [facility] REC#: [id number] PHYSICIAN: CANDY ARZATE CC: CANDY ARZATE; LORI WILSON MD Page 1 of 1 RADIOLOGY REPORT [facility]IA [place], [place] CC: CANDY ARZATE; LORI WILSON MD Page 1 of 1 RADIOLOGY REPORT NAME: LUIS MANUEL RETANA [facility] REC#: [id number] PT STATUS: REG ER : 1960 PHYSICIAN: CANDY ARZATE ADMIT DATE: 08/01/17/ER Signed Date of Exam: 08/01/17 CT HEAD WO PROCEDURE: CT head without contrast. TECHNIQUE: Multiple contiguous axial images were obtained through the brain without the use of intravenous contrast. INDICATION: Fall. FINDINGS: There is no intracranial hemorrhage, edema or mass effect. The brain parenchyma and umanzor-white matter differentiation is preserved. No hydrocephalus. No extra-axial fluid collection seen. The calvarium, the paranasal sinuses and orbits appear grossly unremarkable. There is mucosal thickening seen in the right maxillary sinus. IMPRESSION: No intracranial abnormality. Dictated by: Dictated on workstation # [id number] Dict: 08/01/17 151 Trans: 08/01/17 1535 Interpreted by: LORI WILSON MD Electronically signed by: LORI WILSON MD 08/01/171534 Reviewed: Reviewed by Me Departure Impression Impression: Primary Impression: Head trauma Qualified Codes: S09.90XA - Unspecified injury of head, initial encounter Additional Impression: Fall Qualified Codes: W19.XXXA - Unspecified fall, initial encounter Disposition: 01 HOME, SELF-CARE Condition: Stable Departure-Patient Inst. Decision time for Depature: 15:45 Referrals: ART CASANOVA DO (PCP/Family) Primary Care Physician Patient Instructions: Head Injury Observation (DC), Minor Head Injury (DC) Add. Discharge Instructions: Monitor activity as tolerated and assist as needed. Tylenol 650 mg every 6-8 hours as needed for headache or pain. Return to emergency department for changes in mental status, seizure activity, loss of consciousness, difficulty breathing, fever greater than 101, or new problems. All discharge instructions reviewed with patient and/or family. Voiced understanding. Copy Copies To 1: ART CASANOVA AMY ARNP Aug 01, 2017 15:51
[2017-08-01 16:30] VITALS: BP 110/61
== END 2017-08-01 16:33 | disposition home or self-care (01) ==
LOC: EDUNIT# 13:36 → ER 13:38
DX: S09.90XA Unspecified injury of head, initial encounter (principal); J44.9 Chronic obstructive pulmonary disease, unspecified; K21.9 Gastro-esophageal reflux disease without esophagitis; F32.9 Major depressive disorder, single episode, unspecified; B19.20 Unspecified viral hepatitis C without hepatic coma; F17.210 Nicotine dependence, cigarettes, uncomplicated; Z79.82 Long term (current) use of aspirin; W01.198A Fall on same level from slipping, tripping and stumbling with subsequent striking against other object, initial encounter
CPT/HCPCS: 70450; 71020; 94640; 99282

== ENCOUNTER → 2017-08-07 | Outpatient (CLI) | payer MEDICAID ==
--- NOTE | 2017-08-07 15:33 | Diagnostic Imaging Report ---
EXAMINATION: Three views of the left foot. INDICATION: Fall. FINDINGS: There are fractures involving the proximal phalanx of the fourth and fifth toes. At the proximal phalanx of the fifth toe, the fracture is transverse in the proximal shaft and demonstrates mild impaction. At the proximal phalanx of the fourth toe there is a transverse component of the distal shaft with impaction. There is, however, also a vertical component of the fracture extending to the proximal interphalangeal joint. There is no subluxation or dislocation. No radiopaque foreign body. IMPRESSION: Impacted fractures of the proximal phalanges of the fourth and fifth toes. The fracture in the fourth toe proximal phalanx, distal aspect, does have an intra-articular extension into the proximal interphalangeal joint. Report was called to Dr. Abelino Lacey at 3:31 p.m., by perla. Dictated by: Dictated on workstation # [id number]
== END ==
LOC: RAD 13:03
PROVIDERS: ATTEND Family Medicine
DX: S92.512A Displaced fracture of proximal phalanx of left lesser toe(s), initial encounter for closed fracture (principal); W19.XXXA Unspecified fall, initial encounter; Y99.8 Other external cause status
CPT/HCPCS: 73630

== ENCOUNTER → 2018-04-08 | Outpatient (CLI) | payer MEDICAID ==
--- NOTE | 2018-04-08 14:00 | Diagnostic Imaging Report ---
INDICATION: Shortness of breath, COPD. History of hypertension, diabetes and current tobacco use. TECHNIQUE: Segmental pulse pressures were performed of the upper and lower extremities. FINDINGS: Right brachial pressure: 109 mmHg Right ankle pressure: 126 mm Hg Right ankle-brachial index: 1.14 Left brachial pressure: 111 mm Hg Left ankle pressure: 127 mmHg Left ankle-brachial index: 1.14 IMPRESSION: Normal ankle-brachial indices as above. Ankle-Brachial Index Diagnosis/Interpretation <=0.90 Peripheral Arterial Disease 0.91-0.99 Borderline 1.00-1.40 Normal >1.40 Concern for noncompressible arteries, (assoc with Diabetes Mellitus) Dictated by: Dictated on workstation # [id number]
== END ==
LOC: RAD 12:09
PROVIDERS: ATTEND Internal Medicine Cardiovascular Disease
DX: J44.9 Chronic obstructive pulmonary disease, unspecified (principal); I10 Essential (primary) hypertension; E11.9 Type 2 diabetes mellitus without complications; I70.213 Atherosclerosis of native arteries of extremities with intermittent claudication, bilateral legs; Z72.0 Tobacco use
CPT/HCPCS: 93923

== ENCOUNTER → 2018-09-23 | Outpatient (CLI) | payer MEDICAID ==
[~2018-09-23] MED LIST changes: -IPRA3AMP IH; +IPRA3AMP31 IH
--- NOTE | 2018-09-23 18:07 | Diagnostic Imaging Report ---
INDICATION: Shortness of breath. COMPARISON: 08/01/2017. FINDINGS: New right basilar airspace consolidations with pleural thickening and/or effusion. Left lung is clear. No pneumothorax. Heart is borderline enlarged. IMPRESSION: 1. Right basilar mass-like consolidations with associated pleural effusion and/or pleural thickening. Features may relate to pneumonia, although underlying mass could be present. CT chest with contrast is recommended for further assessment. Dictated on workstation # [id number]
== END ==
LOC: RAD 10:27
PROVIDERS: ATTEND Family Medicine
DX: J18.1 Lobar pneumonia, unspecified organism (principal)
CPT/HCPCS: 71045

== ENCOUNTER 2018-09-24 15:40 | Inpatient (IN) | payer MEDICAID ==
[~2018-09-24] VITALS: Ht 170.2 cm; Wt 105.7 kg
[~2018-09-24 15:40] MED LIST changes: +ETOMIDATE IV SOLN 20 MG/10 ML VIAL IV ONE; -IPRA3AMP31 IH; +IPRA3AMP31 NEB; +MIDAZOLAM 5 MG/5 ML (VERSED) VIAL IJ ONE; +ROCURONIUM 10 MG/ML 5 ML SYRINGE IV ONE; +SUCCINYLCHOLINE INJ 100 MG/5 ML SYR INJ ONE; +fentaNYL INJECTION 100 MCG/2 ML AMP INJ ONE
--- OUTSIDE RECORDS SUMMARY | 2018-09-24 15:46 | XMS REPORT | Clinical Summary ---
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 Overview: IMO Update Sciatica 10/15/2008 Lower Back Pain 10/15/2008 Family History Medical History Relation Name Comments Bipolar disorder Other Family History; Bipolar I Disorder, Most Recent Episode; Cancer Other Family History; CANCER, NOS; Hypertension Other Family History; ESSENTIAL HYPERTENSION; Relation Name Status Comments Other Social History Tobacco Use Types Packs/Day Years Used Date Never Assessed Sex Assigned at Date Recorded Not on file Last Filed Vital Signs Vital Sign Reading Time Taken Blood Pressure 130/70 11/09/2008 4:27 PM LOSS PREVENTION INVESTIGATOR Pulse 80 11/09/2008 4:27 PM LOSS PREVENTION INVESTIGATOR Temperature - - Respiratory Rate 16 11/09/2008 4:27 PM LOSS PREVENTION INVESTIGATOR Oxygen Saturation - - Inhaled Oxygen - - Concentration Weight 86.2 kg (190 lb) 11/09/2008 4:27 PM LOSS PREVENTION INVESTIGATOR Height 173.9 cm (5' 8.45") 10/12/2008 2:28 PM LOSS PREVENTION INVESTIGATOR Body Mass Index 28.51 11/09/2008 4:27 PM LOSS PREVENTION INVESTIGATOR Plan of Treatment Not on file Results Not on filefrom Last 3 Months
--- OUTSIDE RECORDS SUMMARY | 2018-09-24 15:46 | XMS REPORT | Clinical Summary ---
Author Author [facility] Organization [facility] Address Unknown Phone Unavailable Care Team Providers Care Netsuite Developer Name Role Phone Traci Lyons RN Unavailable Unavailable Clifton Navarrete MD PCP Source Comments Some departments are not documenting in the electronic medical record. If you do not see the information that you expected, contact Release of Information in the Health Information Management department at [phone] for further assistance in locating additional records.[facility] Allergies No Known Allergies Current [...] Taken Blood Pressure 133/71 10/08/2007 11:36 PM SOCIAL WORKER ASSISTANT Pulse 94 10/08/2007 11:36 PM SOCIAL WORKER ASSISTANT Temperature 36.1 C (97 F) 10/08/2007 11:36 PM SOCIAL WORKER ASSISTANT Respiratory Rate - - Oxygen Saturation 93% 10/08/2007 11:36 PM SOCIAL WORKER ASSISTANT Inhaled Oxygen - - Concentration Weight - - Height - - Body Mass Index - - Plan of Treatment Health Maintenance Due Date Last Done Comments HEPATITIS C SCREENING 1958 PHYSICAL (COMPREHENSIVE) 1965 EXAM HIV SCREENING 1973 DTAP/TDAP VACCINES (1 - 1976 Tdap) COLORECTAL CANCER 2008 SCREENING SHINGLES RECOMBINANT 2008 VACCINE (1 of 2) INFLUENZA VACCINE 05/21/2018 Results Not on filefrom Last 3 Months
[2018-09-24] MEDS ORDERED: RT-ALBUTEROL SULF 2.5 MG/3 ML PRE-MIX VIAL ONE (16:41)
[2018-09-24] MEDS ORDERED: RT-ALBUTEROL SULF 2.5 MG/3 ML PRE-MIX VIAL INH STA (16:42)
[2018-09-24] MEDS ORDERED: RT-ALBUTEROL/IPRATROPIUM 3 ML (DUONEB) VIAL INH ONE ×2 (16:45)
[2018-09-24] MEDS ORDERED: methylPREDNISolone 125 MG (Solu-MEDROL) VIAL IVP ONE (16:45)
[2018-09-24 17:21] LABS: BASOPHILS % (AUTO) 0 % (0-10); EOSINOPHILS # (AUTO) 0.1 10^3/uL (0.0-0.3); EOSINOPHILS % (AUTO) 1 % (0-10); HEMATOCRIT 48 % (40-54); HEMOGLOBIN 14.6 G/DL (13.3-17.7); LYMPHOCYTES # (AUTO) 2.3 X 10^3 (1.0-4.0); LYMPHOCYTES % (AUTO) 20 % (12-44); MEAN CORPUSCULAR HEMOGLOBIN 29 PG (25-34); MEAN CORPUSCULAR HGB CONC 31 G/DL (32-36); MEAN CORPUSCULAR VOLUME 95 FL (80-99); MEAN PLATELET VOLUME 11.3 FL (7.4-10.4); MONOCYTES # (AUTO) 1.5 X 10^3 (0.0-1.0); MONOCYTES % (AUTO) 13 % (0-12); NEUTROPHILS # (AUTO) 7.7 X 10^3 (1.8-7.8); NEUTROPHILS % (AUTO) 66 % (42-75); PLATELET COUNT 147 10^3/uL (130-400); RED BLOOD COUNT 5.05 10^6/uL (4.35-5.85); RED CELL DISTRIBUTION WIDTH 16.9 % (10.0-14.5); WHITE BLOOD COUNT 11.6 10^3/uL (4.3-11.0)
[2018-09-24 17:35] LABS: ALBUMIN 3.6 GM/DL (3.2-4.5); BILIRUBIN,TOTAL 0.6 MG/DL (0.1-1.0); CALCIUM 8.7 MG/DL (8.5-10.1); CREATININE SERUM 1.52 MG/DL (0.60-1.30); POTASSIUM 5.8 MMOL/L (3.6-5.0); TOTAL PROTEIN 7.3 GM/DL (6.4-8.2)
--- NOTE | 2018-09-24 17:37 | Diagnostic Imaging Report ---
INDICATION: Fall, history of pleural effusion. Frontal chest obtained at 5:19 p.m. and compared to 09/23/2018. FINDINGS: There is cardiomegaly. There is central vascular congestion with interstitial edema. There is unchanged right basilar infiltrate and right pleural effusion compared to yesterday. IMPRESSION: Cardiomegaly and central vascular congestion with some interstitial edema. Unchanged right basilar infiltrate and right pleural fluid compared to yesterday. Dictated by: Dictated on workstation # [id number]
--- NOTE | 2018-09-24 17:44 | Diagnostic Imaging Report ---
INDICATION: Fell, wrist pain. EXAMINATION: Right wrist from 09/24/2018. FINDINGS: Three views of the wrist with a true frontal view not obtained. There is a comminuted distal radial fracture with extension to the adjacent radiocarpal joint space. Some dorsal displacement at the fracture is noted with a dorsally displaced comminuted ulnar fracture also seen distally. Degenerative findings throughout the remaining visualized wrist and hand. IMPRESSION: 1. Somewhat displaced and comminuted distal radius and ulnar fractures as described. 2. Not mentioned above, alignment of the scaphoid with the lunate difficult to ascertain. Dislocation in that region or early subluxation not excluded. Followup recommended. Dictated by: Dictated on workstation # [id number]
--- NOTE | 2018-09-24 17:49 | Diagnostic Imaging Report ---
INDICATION: Fell, wrist pain EXAMINATION: Right hand 09/24/2018 FINDINGS: Three views of the hand There are comminuted distal radius and ulnar fractures; please see the separate wrist radiographs. Given superimposition of the fingers and mild flexion on all imaging examination is slightly limited for other fractures but no definite fracture seen in the osseous structures of the hand. The joint space between the scaphoid and lunate is questionably abnormal, however, this could be positional in nature; postreduction films recommended. Diffuse soft tissue edema about the hand and wrist noted. IMPRESSION: 1. Questionable malalignment of the scaphoid in relation to the lunate; see above discussion. 2. Wrist fractures as described on the separate wrist radiographs. 3. No acute fractures appreciated within the hand. Dictated by: Dictated on workstation # [id number]
[2018-09-24] MEDS ORDERED: FUROSEMIDE 40 MG/4 ML INJ (LASIX) IV STA (18:30)
--- NOTE | 2018-09-24 18:38 | ED Respiratory ---
General Chief Complaint: Respiratory Problems Stated Complaint: PLURAL EFFUSION Source: patient Exam Limitations: no limitations History of Present Illness Date Seen by Provider: Sep 24, 2018 Time Seen by Provider: 18:05 Initial Comments Here with report of shortness of breath and abnormal chest x-ray. He was sent over to the hospital by his provider for stat CT scan was unable to get that. He is significantly short of breath so checked into the emergency department. Initially was seen by ED provider to start treatment based on concerns of O2 sats in the 50s. Patient does have a long history of smoking and was actually seeing Dr. Redmond for a while but quit going to him because he didn't want to follow the directions of Dr. Redmond. Continues to smokes 10 cigarettes a day. Reports tightness in his chest. Also had fall last night when he tripped over uneven floor and landed on his right wrist. Complains of right wrist pain and does have deformity. Denies hitting his head or other injury with that. Timing/Duration: yesterday, getting worse Severity: moderate, severe Prior Episodes/Possible Cause: occasional episodes Modifying Factors: Worse With Activity, Worse With Coughing; Improves With Oxygen, Improves With Rest Associated Symptoms: chest pain/soreness, cough; No fever/chills; nasal congestion, shortness of breath, wheezing Allergies and Home Medications Allergies Coded Allergies: No Known Drug Allergies (Unverified , 12/07/16) Home Medications Acetaminophen 325 Mg Tablet, 650 MG PO Q6H PRN for PAIN-MILD, (Reported) TAKES 2 (325MG) TABLETS Aripiprazole 20 Mg Tablet, 20 MG PO DAILY, (Reported) Aspirin 81 Mg Tablet.dr, 81 MG PO DAILY, (Reported) Benzonatate 200 Mg Capsule, 200 MG PO Q8H PRN for COUGH, (Reported) Budesonide/Formoterol Fumarate 10.2 Gm Hfa.aer.ad, 2 PUFF IH BID, (Reported) Escitalopram Oxalate 20 Mg Tablet, 40 MG PO DAILY, (Reported) TAKES 2 (20MG) TABLETS Fluticasone/Salmeterol 1 Each Blst.w.dev, 1 PUFF IH BID, (Reported) Furosemide 20 Mg Tablet, 20 MG PO DAILY, (Reported) Ipratropium/Albuterol Sulfate 3 Ml Ampul.neb, 3 ML IH Q6H, (Reported) Lisinopril 2.5 Mg Tablet, 2.5 MG PO HS, (Reported) Metoprolol Tartrate 25 Mg Tablet, 25 MG PO BID, (Reported) Multivitamin with Minerals 1 Each Tablet, 1 TAB PO DAILY, (Reported) Pantoprazole Sodium 40 Mg Tablet.dr, 40 MG PO DAILY, (Reported) Patient Home Medication List Home Medication List Reviewed: Yes Review of Systems Review of Systems Constitutional: see HPI; No chills, No fever EENTM: no symptoms reported Respiratory: see HPI, phlegm, short of breath, wheezing Cardiovascular: see HPI, edema Gastrointestinal: No abdominal pain, No nausea; vomiting (intermittent and not uncommon for him) Genitourinary: no symptoms reported Musculoskeletal: No back pain; joint pain, joint swelling; No neck pain Skin: change in color (right wrist); No lesions Psychiatric/Neurological: No Symptoms Reported; Denies Headache, Denies Weakness Hematologic/Lymphatic: No Symptoms Reported All Other Systems Reviewed Negative Unless Noted: Yes Past Yumkzri-Oiobtx-Hdoxnn Hx Past Med/Social Hx: Reviewed Nursing Past Med/Soc Hx Patient Social History Alcohol Use: Denies Use Recreational Drug Use: No Smoking Status: Current Everyday Smoker Type Used: Cigarettes Recent Foreign Travel: No Contact w/Someone Who Travel: No Past Medical History Surgeries: No Respiratory: Yes COPD Cardiac: Yes Gastrointestinal: Yes Gastroesophageal Reflux Colon Psychosocial: Yes Depression Blood Disorders: Yes (HEP C ?) Family Medical History Reviewed Nursing Family Hx No Pertinent Family Hx Physical Exam Vital Signs - First Documented 09/24/18 09/24/18 09/24/18 16:29 16:47 20:29 Temp 97.5 Pulse 71 Resp 36 B/P (MAP) 127/74 (91) Pulse Ox 61 O2 Delivery Room Air O2 Flow Rate 5.00 FiO2 40 Capillary Refill : Height: 5'7.00" Weight: 230lbs. 0.0oz. [id number]; 33.3 BMI Method:Stated General Appearance: WD/WN, no apparent distress HEENT: PERRL/EOMI, pharynx normal Neck: full range of motion, supple Respiratory: decreased breath sounds, accessory muscle use, wheezing, expiration Cardiovascular: no murmur, tachycardia Gastrointestinal: non tender, soft Extremities: non-tender, normal inspection Neurologic/Psychiatric: alert, oriented x 3 Skin: normal color, warm/dry Focused Exam Lactate Level 09/24/18 18:45: Lactic Acid Level 1.52 Lactic Acid Level Laboratory Tests Test 09/24/18 18:45 Lactic Acid Level 1.52 MMOL/L (0.50-2.00) Procedures/Interventions Lumen: triple Central Line Procedure: betadine prep, sterile drapes applied, sterile dressing applied Position: internal jugular (R) Complications: none Post Position: sutured, good blood return, position confirmed w/ CXR Central line placed due to hypotension and the need for pressors. Also antibiotics and fluid administration requirements. Placed via Seldinger technique using ultrasound guidance to the right IJ times one stick with no complications. Post chest x-ray shows line in good position. Date of ETT Placement: Sep 24, 2018 Time of ETT Placement: 20:20 Intubation Method: orotracheal Tube Size: 8 Medications: Etomidate, Fentanyl, Succinylcholine, Versed Positive End Tide CO2: Yes Breath Sounds after Intubation: bilateral-equal Intubation Complications: no complications Post Intubation Xray: Yes ET tube in mid trachea Tolerated procedure well without complications Progress/Results/Core Measures Suspected Sepsis SIRS Temperature: Pulse: Respiratory Rate: Laboratory Tests 09/24/18 17:05: White Blood Count 11.6H Blood Pressure / Mean: 09/24/18 18:45: Lactic Acid Level 1.52 Laboratory Tests 09/24/18 17:05: Creatinine 1.52H, Platelet Count 147, Total Bilirubin 0.6 Results/Orders Lab Results Laboratory Tests Test 09/24/18 17:05 09/24/18 18:45 09/24/18 19:38 Range/Units White Blood Count 11.6 H 4.3-11.0 10^3/uL Red Blood Count 5.05 4.35-5.85 10^6/uL Hemoglobin 14.6 13.3-17.7 G/DL Hematocrit 48 40-54 % Mean Corpuscular Volume 95 80-99 FL Mean Corpuscular Hemoglobin 29 25-34 PG Mean Corpuscular Hemoglobin Concent 31 L 32-36 G/DL Red Cell Distribution Width 16.9 H 10.0-14.5 % Platelet Count 147 130-400 10^3/uL Mean Platelet Volume 11.3 H 7.4-10.4 FL Neutrophils (%) (Auto) 66 42-75 % Lymphocytes (%) (Auto) 20 12-44 % Monocytes (%) (Auto) 13 H 0-12 % Eosinophils (%) (Auto) 1 0-10 % Basophils (%) (Auto) 0 0-10 % Neutrophils # (Auto) 7.7 1.8-7.8 X 10^3 Lymphocytes # (Auto) 2.3 1.0-4.0 X 10^3 Monocytes # (Auto) 1.5 H 0.0-1.0 X 10^3 Eosinophils # (Auto) 0.1 0.0-0.3 10^3/uL Basophils # (Auto) 0.0 0.0-0.1 10^3/uL Sodium Level 137 135-145 MMOL/L Potassium Level 5.8 H 3.6-5.0 MMOL/L Chloride Level 94 L 98-107 MMOL/L Carbon Dioxide Level 32 21-32 MMOL/L Anion Gap 11 5-14 MMOL/L Blood Urea Nitrogen 35 H 7-18 MG/DL Creatinine 1.52 H 0.60-1.30 MG/DL Estimat Glomerular Filtration Rate 47 BUN/Creatinine Ratio 23 Glucose Level 117 H 70-105 MG/DL Calcium Level 8.7 8.5-10.1 MG/DL Corrected Calcium 9.0 8.5-10.1 MG/DL Total Bilirubin 0.6 0.1-1.0 MG/DL Aspartate Amino Transf (AST/SGOT) 30 5-34 U/L Alanine Aminotransferase (ALT/SGPT) 26 0-55 U/L Alkaline Phosphatase 55 40-136 U/L C-Reactive Protein High Sensitivity 1.68 H 0.00-0.50 MG/DL B-Type Natriuretic Peptide 1291.1 H <100.0 PG/ML Total Protein 7.3 6.4-8.2 GM/DL Albumin 3.6 3.2-4.5 GM/DL Lactic Acid Level 1.52 0.50-2.00 MMOL/L Blood Gas Puncture Site LEFT RADIAL Blood Gas Patient Temperature 97.5 Arterial Blood pH 7.28 *L 7.37-7.43 Arterial Blood Partial Pressure CO2 83 *H 35-45 MMHG Arterial Blood Partial Pressure O2 74 L 79-93 MMHG Arterial Blood HCO3 38 H 23-27 MMOL/L Arterial Blood Total CO2 40.2 H 21.0-31.0 MMOL/L Arterial Blood Oxygen Saturation 94 94-100 % Arterial Blood Base Excess 10.6 H -2.5-2.5 MMOL/L Jeff Test POSITIVE Blood Gas Ventilator Setting NO Blood Gas Inspired Oxygen 4.5 L My Orders Orders - ALLIE FAITH MD Ct Chest Wo (09/24/18 18:04) Furosemide Injection (Lasix Injection) (09/24/18 18:30) Lactic Acid Analyzer (09/24/18 18:30) Blood Culture (09/24/18 18:30) Arterial Blood Gas (09/24/18 18:38) Morphine Injection (Morphine Injection (09/24/18 19:02) Piperacillin Sodium/Tazobactam (Zosyn Vi (09/24/18 19:45) Propofol Drip (Icu) (Diprivan Drip (Icu) (09/24/18 20:16) Chest 1 View, Ap/Pa Only (09/24/18 20:32) Catheter(Urinary) Insert & Ass 03,15 (09/24/18 20:42) Ng Tube Insert & Assessment (09/24/18 20:42) Ns Iv 1000 Ml (Sodium Chloride 0.9%) (09/24/18 20:42) Ns Iv 1000 Ml (Sodium Chloride 0.9%) (09/24/18 20:41) Saline Lock/Iv-Start (09/24/18 21:31) Ns Iv 1000 Ml (Sodium Chloride 0.9%) (09/24/18 21:31) Medications Given in ED Current Medications Medications Dose Ordered Sig/Mi Route Start Time Stop Time Status Last Admin Dose Admin Albuterol/ Ipratropium 3 ml ONCE ONCE INH 09/24/18 16:45 09/24/18 16:46 DC 09/24/18 16:47 3 ML Methylprednisolone Sodium Succinate 125 mg ONCE ONCE IVP 09/24/18 16:45 09/24/18 16:46 DC 09/24/18 17:33 125 MG Morphine Sulfate 10 mg STK-MED ONCE .ROUTE 09/24/18 19:02 09/24/18 19:04 DC 09/24/18 19:07 4 MG Piperacillin Sod/ Tazobactam Sod 4.5 gm/Sodium Chloride 100 ml @ 200 mls/hr ONCE ONCE IV 09/24/18 19:45 09/24/18 20:14 DC 09/24/18 20:53 200 MLS/HR Propofol 100 ml @ ud STK-MED ONCE IV 09/24/18 20:16 09/24/18 20:19 DC 09/24/18 20:27 20 MLS/HR Vital Signs/I&O 09/24/18 09/24/18 09/24/18 09/24/18 16:29 16:47 20:27 20:29 Temp 97.5 97.5 Pulse 71 72 84 Resp 36 12 16 B/P (MAP) 127/74 (91) 160/81 Pulse Ox 61 91 97 O2 Delivery Room Air OxyMask Mechanical Ventilator O2 Flow Rate 5.00 FiO2 40 Capillary Refill : Progress Note : Progress Note Seen and evaluated. IV and labs as well as chest x-ray have been ordered. Patient did receive DuoNeb treatment and then a continuous one-hour treatment as well as 125 mg of Solu-Medrol IV. We will add CT of the chest unfortunately without contrast due to his current GFR to evaluate for mass in the right base. Also Lasix 40 mg IV ordered. 1834: We will get blood cultures and lactic acid due to concerns of possible pneumonia and he does have mildly elevated white count. I think this is more related to the stress of his respiratory problems but we will check as well. ABG ordered to evaluate for elevated CO2. Monitor patient. 1938: Patient will require admission. Zosyn 4.5 g IV ordered. I discussed the case with Dr. Casanova and he accepts patient for admission. I will consult Dr. Redmond. 1950: ABG results noted and patient hypercapnic. He is not getting be a good candidate for BiPAP as he has fairly significant pneumonia and this will worsen that. We should really consider an ablation. 2009: I have discussed the case with the patient and he agrees to inpatient. 2019: Intubation complete with 80 tube at 23 cm at the lip. Tolerated procedure well with no complication. We will use propofol for postintubation sedation. Patient has very challenging presentation and has findings of both heart failure which is likely demand related and renal failure which is likely dehydration. He needs fluids both added and taken off. 2024: I discussed the case with Dr. Poe. We will continue Lasix IV as well as IV fluids at 100 mL/h to create a more appropriate intravascular volume and decrease extravascular volume. He will monitor that. 2029: I have discussed the case with Dr. Redmond and he will continue to monitor the patient as well. Patient to be admitted to ICU, inpatient status. Lactic acid not elevated. Currently no indication for high volume fluid resuscitation and this would be disadvantageous in this patient currently due to the heart failure. We will consider that though if needed if he becomes hypotensive. Otherwise we will do gentle hydration at this point. 2131: Patient became hypotensive after initiation of Zosyn and with the sedating agents. Given the fact that his blood pressure is tenuous and he does have a pneumonia, central line was placed to initiate pressors. Levophed drip has been ordered. Central line was placed without difficulty. I have added 2 more liters of fluid to give total fluid going administration of 3 L to meet the 30 mL/kg requirement of a patient who is approximately 100 kg. Patient to be admitted to ICU. Current vent settings are tidal volume 450 with rate of 16 and PEEP of 10 and FiO2 at 60 percent. This represents improvement when PEEP was set at 5 and he was requiring 70 percent FiO2. Admit to ICU. 2229: Blood pressure stabilized nicely on Levophed drip. Fluids continuing. I attest to focused exam at this time. Diagnostic Imaging Diagonstic Imaging: Xray Plain Films/CT/US/NM/MRI: chest Comments NAME: LUIS MANUEL RETANA [facility] REC#: [id number] PT STATUS: REG ER : 1960 PHYSICIAN: GABE YAN MD ADMIT DATE: 09/24/18/ER Signed Date of Exam: 09/24/18 CHEST 1 VIEW, AP/PA ONLY INDICATION: Fall, history of pleural effusion. Frontal chest obtained at 5:19 p.m. and compared to 09/23/2018. FINDINGS: There is cardiomegaly. There is central vascular congestion with interstitial edema. There is unchanged right basilar infiltrate and right pleural effusion compared to yesterday. IMPRESSION: Cardiomegaly and central vascular congestion with some interstitial edema. Unchanged right basilar infiltrate and right pleural fluid compared to yesterday. Dictated by: Dictated on workstation # [id number] Dict: 09/24/18 1732 Trans: 09/24/18 182 Interpreted by: CHARITY EMERSON MD Electronically signed by: CHARITY EMERSON MD 09/24/18 1827 Diagonstic Imaging: Xray Plain Films/CT/US/NM/MRI: hand Comments [facility], [place] NAME: LUIS MANUEL RETANA [facility] REC#: [id number] PT STATUS: REG ER : 1960 PHYSICIAN: GABE YAN MD ADMIT DATE: 09/24/18/ER Draft Date of Exam:09/24/18 HAND, RIGHT, 3 VIEWS INDICATION: Fell, wrist pain EXAMINATION: Right hand 09/24/2018 FINDINGS: Three views of the hand There are comminuted distal radius and ulnar fractures; please see the separate wrist radiographs. Given superimposition of the fingers and mild flexion on all imaging examination is slightly limited for other fractures but no definite fracture seen in the osseous structures of the hand. The joint space between the scaphoid and lunate is questionably abnormal, however, this could be positional in nature; postreduction films recommended. Diffuse soft tissue edema about the hand and wrist noted. IMPRESSION: 1. Questionable malalignment of the scaphoid in relation to the lunate; see above discussion. 2. Wrist fractures as described on the separate wrist radiographs. 3. No acute fractures appreciated within the hand. Dictated on workstation # [id number] Dict: 09/24/18 1733 Trans: 09/24/18 1748 [facility] [id number] Interpreted by: JUAN PABLO GREGG MD Electronically signed by: Diagonstic Imaging: Xray Plain Films/CT/US/NM/MRI: other Comments [facility] [place] NAME: LUIS MANUEL RETANA [facility] REC#: [id number] PT STATUS: REG ER : 1960 PHYSICIAN: GABE YAN MD ADMIT DATE: 09/24/18/ER Draft Date of Exam:09/24/18 WRIST, RIGHT, 3 VIEWS OR MORE INDICATION: Fell, wrist pain. EXAMINATION: Right wrist from 09/24/2018. FINDINGS: Three views of the wrist with a true frontal view not obtained. There is a comminuted distal radial fracture with extension to the adjacent radiocarpal joint space. Some dorsal displacement at the fracture is noted with a dorsally displaced comminuted ulnar fracture also seen distally. Degenerative findings throughout the remaining visualized wrist and hand. IMPRESSION: 1. Somewhat displaced and comminuted distal radius and ulnar fractures as described. 2. Not mentioned above, alignment of the scaphoid with the lunate difficult to ascertain. Dislocation in that region or early subluxation not excluded. Followup recommended. Dictated on workstation # [id number] Dict: 09/24/18 1731 Trans: 09/24/18 1743 [id number] Interpreted by: JUAN PABLO GREGG MD Electronically signed by: Jazmin Imaging: CT Plain Films/CT/US/NM/MRI: chest Comments NAME: LUIS MANUEL RETANA [facility] REC#: [id number] PT STATUS: REG ER : 1960 PHYSICIAN: ALLIE FAITH MD ADMIT DATE: 09/24/18/ER Signed Date of Exam: 09/24/18 CT CHEST WO INDICATION: Difficulty breathing, shortness of air, pleural effusion. EXAMINATION: CT of the chest without contrast, 09/24/2018. COMPARISON: None. FINDINGS: There is a moderate-sized right pleural effusion with pleural fluid tracking along the lateral aspect of the chest. Pleural thickening is also seen along the anterior aspect of the chest. The posterior fluid appears somewhat oval and it is difficult to exclude an empyema without contrast. There is diffuse airspace opacity within much of the right middle lobe involving portions of the right upper lobe as well. These findings are likely due to an infiltrate with air bronchograms noted. Pleural fluid or thickening tracks medially along the medial border of the pleura. Scattered airspace opacities and bronchiectasis seen at the right lung base with some air bronchograms and perhaps a developing infiltrate noted as well. Within the left lung tiny nodularity is seen in the posterior left lower lung. Similar findings are scattered throughout the left upper lobe. These findings could be due to an atypical type of inflammatory or infectious process. A nodularity in the peripheral aspect of the left upper lobe, image 24, is also noted. This should be followed to assure resolution and/or stability. Mediastinal adenopathy noted. Bilateral hilar adenopathy, right worse than left. Very small pericardial effusion. Visualized upper abdominal structures demonstrate multiple stones filling the gallbladder. Chronic changes in the osseous structures. Multiple old rib fractures are noted. IMPRESSION: 1. Moderate-sized right pleural effusion which is peripheral in location anterior and medial as well as lateral. These findings some would suggest some loculated fluid with empyema not excluded on this noncontrast examination. 2. Diffuse infiltrates throughout the right lung, as described. 3. Nodular pattern of airspace opacity in the left lung, as described, likely due to a developing atypical inflammatory or infectious process. 4. Adenopathy, as described, as well as a small pericardial effusion. 5. Cholelithiasis. Dictated by: Dictated on workstation # [id number] Dict: 09/24/181855 Trans: 09/24/181907 Interpreted by: JUAN PABLO GREGG MD Electronically signed by: JUAN PABLO GREGG MD 09/24/181907 Diagonstic Imaging: Xray Plain Films/CT/US/NM/MRI: chest Comments NAME: LUIS MANUEL RETANA [facility] REC#: [id number] PT STATUS: REG ER : 1960 PHYSICIAN: ALLIE FAITH MD ADMIT DATE: 09/24/18/ER Signed Date of Exam: 09/24/18 CHEST 1 VIEW, AP/PA ONLY INDICATION: Intubation. EXAMINATION: Frontal chest was obtained at 8:50 p.m. COMPARISON: Same day at 5:19 p.m. FINDINGS: Heart is mildly enlarged. There is central vascular congestion with interstitial edema. There is unchanged infiltrate throughout the right lung. There is some right-sided pleural fluid. ET tube tip overlies the mid trachea. NG tube tip is below the film. IMPRESSION: ET tube and NG tube placement, as described above. Diffuse infiltrate throughout the right lung is noted with right-sided pleural fluid. There is cardiomegaly and central vascular congestion. Dictated by: Dictated on workstation # [id number] Dict: 09/24/182104 Trans: 09/24/182136 Interpreted by: CHARITY EMERSON MD Electronically signed by: CHARITY EMERSON MD 09/24/182136 Diagonstic Imaging: Xray Plain Films/CT/US/NM/MRI: chest Comments NAME: LUIS MANUEL RETANA [facility] REC#: [id number] PT STATUS: REG ER : 1960 PHYSICIAN: MELIZA AMANDA ADMIT DATE: 09/24/18/ER Signed Date of Exam: 09/24/18 CHEST 1 VIEW, AP/PA ONLY INDICATION: Central line placement. EXAMINATION: Single view of the chest was obtained at 8:50 p.m. FINDINGS: There is cardiomegaly and central vascular congestion with interstitial edema. There is unchanged diffuse infiltrate in the right lung and unchanged right pleural fluid. ET tube and NG tube are stable. There is a new right IJ central catheter with tip overlying the mid SVC. IMPRESSION: New right IJ central catheter tip overlies the mid SVC. There is no pneumothorax seen following line placement. Findings are otherwise unchanged compared to earlier today. Dictated by: Dictated on workstation # [id number] Dict: 09/24/182135 Trans: 09/24/182141 Interpreted by: CHARITY EMERSON MD Electronically signed by: CHARITY EMERSON MD 09/24/182141 Departure Communication (Admissions) Time/Spoke to Admitting Phy: 19:39 Time/Spoke to Consulting Phy: 19:51 Impression Primary Impression: Right middle lobe pneumonia Qualified Codes: J18.1 - Lobar pneumonia, unspecified organism Additional Impressions: Pleural effusion, right Heart failure Qualified Codes: I50.9 - Heart failure, unspecified Hypercapnic respiratory failure Qualified Codes: J96.02 - Acute respiratory failure with hypercapnia Right wrist fracture Qualified Codes: S62.101A - Fracture of unspecified carpal bone, right wrist, initial encounter for closed fracture Disposition: ADMITTED INPATIENT Condition: Critical Admissions Decision to Admit Reason: Admit from ER (General) Decision to Admit/Date: Sep 24, 2018 Time/Decision to Admit Time: 19:39 Departure-Patient Inst. Referrals: ART CASANOVA DO (PCP/Family) Primary Care Physician ALLIE FAITH MD Sep 24, 2018 18:38
[2018-09-24] MEDS ORDERED: morphine INJ 10 MG/ML 1ML (SYR OR VIAL) ONE (19:02)
--- NOTE | 2018-09-24 19:07 | Diagnostic Imaging Report ---
INDICATION: Difficulty breathing, shortness of air, pleural effusion. EXAMINATION: CT of the chest without contrast, 09/24/2018. COMPARISON: None. FINDINGS: There is a moderate-sized right pleural effusion with pleural fluid tracking along the lateral aspect of the chest. Pleural thickening is also seen along the anterior aspect of the chest. The posterior fluid appears somewhat oval and it is difficult to exclude an empyema without contrast. There is diffuse airspace opacity within much of the right middle lobe involving portions of the right upper lobe as well. These findings are likely due to an infiltrate with air bronchograms noted. Pleural fluid or thickening tracks medially along the medial border of the pleura. Scattered airspace opacities and bronchiectasis seen at the right lung base with some air bronchograms and perhaps a developing infiltrate noted as well. Within the left lung tiny nodularity is seen in the posterior left lower lung. Similar findings are scattered throughout the left upper lobe. These findings could be due to an atypical type of inflammatory or infectious process. A nodularity in the peripheral aspect of the left upper lobe, image 24, is also noted. This should be followed to assure resolution and/or stability. Mediastinal adenopathy noted. Bilateral hilar adenopathy, right worse than left. Very small pericardial effusion. Visualized upper abdominal structures demonstrate multiple stones filling the gallbladder. Chronic changes in the osseous structures. Multiple old rib fractures are noted. IMPRESSION: 1. Moderate-sized right pleural effusion which is peripheral in location anterior and medial as well as lateral. These findings some would suggest some loculated fluid with empyema not excluded on this noncontrast examination. 2. Diffuse infiltrates throughout the right lung, as described. 3. Nodular pattern of airspace opacity in the left lung, as described, likely due to a developing atypical inflammatory or infectious process. 4. Adenopathy, as described, as well as a small pericardial effusion. 5. Cholelithiasis. Dictated by: Dictated on workstation # [id number]
[2018-09-24] MEDS ORDERED: PIPERACILLIN SODIUM/TAZOBACTAM 4.5 GM in NS (IVPB) 100 ML IV ONE (19:45)
[2018-09-24 19:47] LABS: ABG BASE EXCESS 10.6 MMOL/L (-2.5-2.5); ABG OXYGEN SATURATION 94 % (94-100); ABG PO2 74 MMHG (79-93); ABG TCO2 40.2 MMOL/L (21.0-31.0)
[2018-09-24 19:49] LABS: ABG PCO2 83 MMHG (35-45); ABG PH 7.28 (7.37-7.43); ALLENS TEST POSITIVE; INSPIRED O2 4.5 L; PATIENT TEMP 97.5; VENTILATOR NO
[2018-09-24] MEDS ORDERED: PROPOFOL DRIP (ICU) 100 ML IV ONE (20:16)
[2018-09-24 20:29] VITALS: BP 160/81
[2018-09-24] MEDS ORDERED: NS IV 1000 ML 1,000 ML ONE (20:41)
[2018-09-24] MEDS ORDERED: NS IV 1000 ML 1,000 ML IV ONE (20:42)
[2018-09-24] MEDS ORDERED: ROCURONIUM 10 MG/ML 5 ML SYRINGE IV ONE (20:50)
--- NOTE | 2018-09-24 21:08 | Diagnostic Imaging Report ---
INDICATION: Intubation. EXAMINATION: Frontal chest was obtained at 8:50 p.m. COMPARISON: Same day at 5:19 p.m. FINDINGS: Heart is mildly enlarged. There is central vascular congestion with interstitial edema. There is unchanged infiltrate throughout the right lung. There is some right-sided pleural fluid. ET tube tip overlies the mid trachea. NG tube tip is below the film. IMPRESSION: ET tube and NG tube placement, as described above. Diffuse infiltrate throughout the right lung is noted with right-sided pleural fluid. There is cardiomegaly and central vascular congestion. Dictated by: Dictated on workstation # [id number]
[2018-09-24] MEDS ORDERED: NS IV 1000 ML 1,000 ML IV SCH ×2 (21:31→22:49)
[2018-09-24] MEDS: NOREPINEPHRINE 4 MG in NS (IVPB) 250 ML IV SCH (21:36)
--- NOTE | 2018-09-24 21:42 | Diagnostic Imaging Report ---
INDICATION: Central line placement. EXAMINATION: Single view of the chest was obtained at 8:50 p.m. FINDINGS: There is cardiomegaly and central vascular congestion with interstitial edema. There is unchanged diffuse infiltrate in the right lung and unchanged right pleural fluid. ET tube and NG tube are stable. There is a new right IJ central catheter with tip overlying the mid SVC. IMPRESSION: New right IJ central catheter tip overlies the mid SVC. There is no pneumothorax seen following line placement. Findings are otherwise unchanged compared to earlier today. Dictated by: Dictated on workstation # [id number]
[2018-09-24] MEDS ORDERED: NS IV ONE (23:00)
[2018-09-24 23:01] VITALS: BP 123/78
[2018-09-24 23:10] VITALS: BP 123/78
[2018-09-24] MEDS: NS IV 1000 ML 1,000 ML IV SCH (23:30)
[2018-09-25] VITALS (31 sets, daily range): BP systolic 81–140; BP diastolic 45–78
[2018-09-25] MEDS: PROPOFOL DRIP (ICU) 100 ML IV SCH ×4 (00:01→19:53)
[2018-09-25] MEDS ORDERED: PROPOFOL DRIP (ICU) 100 ML IV ONE (00:01)
[2018-09-25] MEDS ORDERED: RT-ALBUTEROL/IPRATROPIUM 3 ML (DUONEB) VIAL INH PRN (01:00)
[2018-09-25] MEDS: RT-ALBUTEROL/IPRATROPIUM 3 ML (DUONEB) VIAL INH SCH ×6 (01:04→22:51)
[2018-09-25 01:51] LABS: ABG BASE EXCESS 9.1 MMOL/L (-2.5-2.5); ABG OXYGEN SATURATION 92 % (94-100); ABG PCO2 62 MMHG (35-45); ABG PH 7.36 (7.37-7.43); ABG PO2 60 MMHG (79-93); ABG TCO2 36.9 MMOL/L (21.0-31.0); ALLENS TEST YES-POS
[2018-09-25 01:52] LABS: INSPIRED O2 50%; PATIENT TEMP 96.6; VENTILATOR YES
[2018-09-25] MEDS ORDERED: PANTOPRAZOLE 40 MG (PROTONIX) VIAL IV ONE (02:30)
[2018-09-25 03:15] LABS: BASOPHILS % (AUTO) 0 % (0-10); EOSINOPHILS % (AUTO) 0 % (0-10); HEMATOCRIT 46 % (40-54); HEMOGLOBIN 14.4 G/DL (13.3-17.7); LYMPHOCYTES # (AUTO) 0.6 X 10^3 (1.0-4.0); LYMPHOCYTES % (AUTO) 6 % (12-44); MEAN CORPUSCULAR HEMOGLOBIN 29 PG (25-34); MEAN CORPUSCULAR HGB CONC 31 G/DL (32-36); MEAN CORPUSCULAR VOLUME 94 FL (80-99); MEAN PLATELET VOLUME 10.6 FL (7.4-10.4); MONOCYTES # (AUTO) 0.2 X 10^3 (0.0-1.0); MONOCYTES % (AUTO) 2 % (0-12); NEUTROPHILS # (AUTO) 10.3 X 10^3 (1.8-7.8); NEUTROPHILS % (AUTO) 92 % (42-75); PLATELET COUNT 148 10^3/uL (130-400); RED BLOOD COUNT 4.91 10^6/uL (4.35-5.85); RED CELL DISTRIBUTION WIDTH 16.8 % (10.0-14.5); WHITE BLOOD COUNT 11.1 10^3/uL (4.3-11.0)
[2018-09-25 03:38] LABS: ALBUMIN 3.1 GM/DL (3.2-4.5); CALCIUM 7.9 MG/DL (8.5-10.1); CREATININE SERUM 1.3 MG/DL (0.60-1.30); MAGNESIUM 1.9 MG/DL (1.8-2.4); PHOSPHORUS 2.9 MG/DL (2.3-4.7); POTASSIUM 4.9 MMOL/L (3.6-5.0); TOTAL PROTEIN 6.3 GM/DL (6.4-8.2)
[2018-09-25 04:01] LABS: BAND NEUTROPHILS 3 %; BASOPHILS % (MANUAL) 0 %; EOSINOPHILS % (MANUAL) 0 %; LYMPHOCYTES % (MANUAL) 4 %; MONOCYTES % (MANUAL) 3 %; NEUTROPHILS % (MANUAL) 90 %
[2018-09-25 04:02] LABS: ANISOCYTOSIS SLIGHT; HYPOCHROMASIA SLIGHT; POLYCHROMASIA SLIGHT; STOMATOCYTES SLIGHT
--- NOTE | 2018-09-25 06:02 | Pulmonary Consultation ---
History of Present Illness History of Present Illness Date of Consultation 09/25/18 05:57 Time Seen by Provider: 05:57 Date of Admission History of Present Illness 58yo with hx of cocaine use, hep C, and severe COPD with persistent tobacco use presented to ED s/p fall (did not hit head), worsening SOB, Coughing, and CP. Out patient CT of chest was ordered however pt was not able to tolerate laying flat. PT currently on ventilator. Unable to obtain any additional information. All information obtained from chart. Allergies and Home Medications Allergies Coded Allergies: No Known Drug Allergies (Unverified , 12/07/16) Home Medications Acetaminophen 325 Mg Tablet, 650 MG PO Q6H PRN for PAIN-MILD, (Reported) TAKES 2 (325MG) TABLETS Aripiprazole 20 Mg Tablet, 20 MG PO DAILY, (Reported) Aspirin 81 Mg Tablet.dr, 81 MG PO DAILY, (Reported) Benzonatate 200 Mg Capsule, 200 MG PO Q8H PRN for COUGH, (Reported) Budesonide/Formoterol Fumarate 10.2 Gm Hfa.aer.ad, 2 PUFF IH BID, (Reported) Carbamide Peroxide 15 Ml Drops, 5 DROPS EACH EAR Q12H PRN for EAR WAX BUILD UP, (Reported) Carboxymethylcellulose Sodium 15 Ml Drops, 1 DROP OU Q4H PRN for DRY EYES, ( Reported) Clonazepam 0.5 Mg Tablet, 0.5 MG PO BID, (Reported) Divalproex Sodium 125 Mg Cap.sprink, 125 MG PO TID, (Reported) Escitalopram Oxalate 20 Mg Tablet, 40 MG PO DAILY, (Reported) TAKES 2 (20MG) TABLETS Furosemide 20 Mg Tablet, 20 MG PO DAILY, (Reported) Ipratropium/Albuterol Sulfate 3 Ml Ampul.neb, 3 ML NEB Q6H, (Reported) Lisinopril 2.5 Mg Tablet, 2.5 MG PO HS, (Reported) Metoprolol Tartrate 25 Mg Tablet, 25 MG PO BID, (Reported) HOLD FOR SYSTOLIC BP < 100 Multivitamin 1 Each Tablet, 1 TAB PO DAILY, (Reported) Ondansetron HCl 4 Mg Tab, 4 MG PO Q4H PRN for NAUSEA/VOMITING-1ST LINE, ( Reported) Pantoprazole Sodium 40 Mg Tablet.dr, 40 MG PO DAILY, (Reported) Past Hiecwjr-Ztucbr-Bbhryb Hx Past Med/Social Hx: Reviewed Nursing Past Med/Soc Hx Patient Social History Alcohol Use: Occasionally Uses Recreational Drug Use: No (hx of cocaine use) Smoking Status: Current Everyday Smoker Type Used: Cigarettes Recent Foreign Travel: No Contact w/Someone Who Travel: No Recent Infectious Disease Expo: No Recent Hopitalizations: No Physical Abuse: No Sexual Abuse: No Seasonal Allergies Seasonal Allergies: No Past Medical History Surgeries: No Respiratory: Yes COPD Cardiac: Yes Neurological: No Genitourinary: No Gastrointestinal: Yes Gastroesophageal Reflux, Hepatitis Musculoskeletal: No Endocrine: No HEENT: No Cancer: Yes Colon Psychosocial: Yes Anxiety, Violent Behavior, Depression Integumentary: No Blood Disorders: Yes (HEP C ) Family Medical History Reviewed Nursing Family Hx No Pertinent Family Hx Review of Systems Time Seen by Provider: 07:00 Sepsis Event Evaluation Height, Weight, BMI Height: 5'7.00" Weight: 243lbs. 3.0oz. 110.233222pb; 38.1 BMI Method:Stated Exam Exam Vital Signs Date Time Temp Pulse Resp B/P (MAP) Pulse Ox O2 Delivery O2 Flow Rate FiO2 09/25/18 05:00 73 22 95/52 (66) 95 Mechanical Ventilator 50.00 09/25/18 04:00 82 12 115/54 (74) 91 Mechanical Ventilator 50.00 09/25/18 03:47 66 22 94 50 09/25/18 03:00 66 16 101/55 (70) 94 Mechanical Ventilator 50.00 09/25/18 02:58 96.6 09/25/18 02:00 64 22 110/60 (77) 94 Mechanical Ventilator 50.00 09/25/18 01:30 Mechanical Ventilator 50.00 09/25/18 01:04 64 22 93 50 09/25/18 01:00 70 09/25/18 01:00 65 21 81/45 (57) 93 Mechanical Ventilator 100.00 09/24/18 23:52 71 09/24/18 23:10 71 16 99 80 09/24/18 23:01 97.1 67 16 123/78 (93) Mechanical Ventilator 100.00 09/24/18 22:41 Mechanical Ventilator 100.00 09/24/18 22:30 97.9 62 12 117/69 (85) 99 Mechanical Ventilator 09/24/18 20:29 84 16 97 40 09/24/18 20:27 97.5 72 12 160/81 91 Mechanical Ventilator 09/24/18 16:47 OxyMask 5.00 09/24/18 16:29 97.5 71 36 127/74 (91) 61 Room Air I & O 09/25/18 07:00 Intake Total 1200 ml Output Total 1700 ml Balance -500 ml Height & Weight Height: 5'7.00" Weight: 243lbs. 3.0oz. 110.686954sc; 38.1 BMI Method:Stated General Appearance: Moderate Distress, Other (sedated on vent') HEENT: PERRL/EOMI, Moist Mucous Membranes Neck: Full Range of Motion, Normal Inspection, Non Tender, Supple Respiratory: Chest Non Tender, Lungs Clear, No Accessory Muscle Use, No Respiratory Distress, Decreased Breath Sounds Cardiovascular: Regular Rate, Rhythm, No Edema Capillary Refill: Less Than 3 Seconds Gastrointestinal: non tender, soft Extremity: Normal Capillary Refill, Normal Inspection, Normal Range of Motion, Non Tender, No Calf Tenderness Skin: Normal Color, Warm/Dry Lymphatic: No Adenopathy Results Lab Laboratory Tests 09/24/18 17:05 09/25/18 03:05 Assessment/Plan Assessment/Plan Acute on chronic respiratory failure -Continue ventilator therapy --Pneumonia with right loculated pleural effusion -- NOT SEPSIS SINCE HE DOES NOT MEET SIRS CRITERIA -Thick yellow sputum from ET tube -Continue Zosyn -Ruiz cultures -Monitor close Hypotension secondary to dehydration and intubation -Hold lasix -Give 1 liter bolus of NS -Levophed gtt -titrate to d/c as tolerated Acute renal failure - improving with IVF KEYONA EVANS DO Sep 25, 2018 06:01
[2018-09-25] MEDS: MAGNESIUM 1 GM/100 ML IVPB 100 ML IV SCH (06:29)
[2018-09-25] MEDS: KCL 20 MEQ TAB (K-DUR) PO SCH (06:29)
[2018-09-25] MEDS: POTASSIUM CL 10MEQ/50ML IVPB 50 ML IV SCH (06:30)
[2018-09-25] MEDS ORDERED: LACTATED RINGERS 1,000 ML IV ONE (06:30)
[2018-09-25] MEDS: PIPERACILLIN SODIUM/TAZOBACTAM 4.5 GM in NS (IVPB) 100 ML IV SCH ×3 (07:22→22:04)
--- NOTE | 2018-09-25 08:02 | Consultation-Cardiology ---
HPI-Cardiology Cardiology Consultation: Date of Consultation 09/25/18 Time Seen by a Provider: 08:30 Date of Admission 09-24-18 Attending Physician Abelino Lacey DO Admitting Physician Abelino Lacey DO Consulting Physician Luke Poe MD HPI: Chief Complaint: Resp failure Mr. Retana is a 58 year old male admitted to ICU 11 from the ED. He is currently intubated and sedated. Information has been obtain from a review of the chart and nursing. He was brought to the ED yesterday from the [facility] facility in which he resides d/t a fall. During evaluation in the ED he was found to have low O2 sats in the 50's. CXR showed infiltrates. His respiratory status did not improve and therefore intubation was carried out. Review of Systems-Cardiology Review of Systems Other comments Intubated and sedated - unable to obtain any information All Other Systems Reviewed Negative Unless Noted: Yes UDT-Uliohb-Qcejzj Hx Patient Social History Alcohol Use: Occasionally Uses Recreational Drug Use: No (hx of cocaine use) Smoking Status: Current Everyday Smoker Type Used: Cigarettes Recent Foreign Travel: No Recent Infectious Disease Expo: No Hospitalization with Isolation: Denies Physical Abuse Screen: No Sexual Abuse: No Past Medical History PMH As described under Assessment. Family Medical History Family Medical History: Unable to obtain d/t intubation and sedation Allergies and Home Medications Allergies Coded Allergies: No Known Drug Allergies (Unverified , 12/07/16) Home Medications Acetaminophen 325 Mg Tablet, 650 MG PO Q6H PRN for PAIN-MILD, (Reported) TAKES 2 (325MG) TABLETS Aripiprazole 20 Mg Tablet, 20 MG PO DAILY, (Reported) Aspirin 81 Mg Tablet.dr, 81 MG PO DAILY, (Reported) Benzonatate 200 Mg Capsule, 200 MG PO Q8H PRN for COUGH, (Reported) Budesonide/Formoterol Fumarate 10.2 Gm Hfa.aer.ad, 2 PUFF IH BID, (Reported) Carbamide Peroxide 15 Ml Drops, 5 DROPS EACH EAR Q12H PRN for EAR WAX BUILD UP, (Reported) Carboxymethylcellulose Sodium 15 Ml Drops, 1 DROP OU Q4H PRN for DRY EYES, ( Reported) Clonazepam 0.5 Mg Tablet, 0.5 MG PO BID, (Reported) Divalproex Sodium 125 Mg Cap.sprink, 125 MG PO TID, (Reported) Escitalopram Oxalate 20 Mg Tablet, 40 MG PO DAILY, (Reported) TAKES 2 (20MG) TABLETS Furosemide 20 Mg Tablet, 20 MG PO DAILY, (Reported) Ipratropium/Albuterol Sulfate 3 Ml Ampul.neb, 3 ML NEB Q6H, (Reported) Lisinopril 2.5 Mg Tablet, 2.5 MG PO HS, (Reported) Metoprolol Tartrate 25 Mg Tablet, 25 MG PO BID, (Reported) HOLD FOR SYSTOLIC BP < 100 Multivitamin 1 Each Tablet, 1 TAB PO DAILY, (Reported) Ondansetron HCl 4 Mg Tab, 4 MG PO Q4H PRN for NAUSEA/VOMITING-1ST LINE, ( Reported) Pantoprazole Sodium 40 Mg Tablet.dr, 40 MG PO DAILY, (Reported) Patient Home Medication List Home Medication List Reviewed: No Physical Exam-Cardiology Physical Exam Vital Signs/I&O 09/25/18 09/25/18 09/25/18 09/25/18 19:53 20:00 20:00 20:00 Temp 97.8 Pulse 81 80 Resp 22 25 B/P (MAP) 123/65 132/69 (90) Pulse Ox 96 96 94 O2 Delivery Mechanical Ventilator Mechanical Ventilator Mechanical Ventilator O2 Flow Rate 50.00 50.00 50.00 09/25/18 09/25/18 09/25/18 09/25/18 21:00 22:45 22:51 23:00 Pulse 79 73 78 73 Resp B/P (MAP) 133/72 (92) 140/78 (98) 125/70 (88) Pulse Ox 93 96 97 97 O2 Delivery Mechanical Ventilator Mechanical Ventilator Mechanical Ventilator O2 Flow Rate 50.00 50.00 50.00 FiO2 50 09/26/18 09/26/18 09/26/18 09/26/18 00:00 00:30 01:00 01:00 Temp 97.1 Pulse 68 68 68 Resp 21 B/P (MAP) 137/76 (96) 124/72 (89) Pulse Ox 95 94 94 O2 Delivery Mechanical Ventilator Mechanical Ventilator Mechanical Ventilator O2 Flow Rate 50.00 50.00 FiO2 50 09/26/18 09/26/18 09/26/18 09/26/18 02:00 02:21 02:54 03:00 Pulse 65 67 65 64 Resp 22 21 B/P (MAP) 133/75 (94) 133/75 132/70 (90) Pulse Ox 95 96 96 96 O2 Delivery Mechanical Ventilator Mechanical Ventilator Mechanical Ventilator O2 Flow Rate 50.00 50.00 50.00 FiO2 50 09/26/18 09/26/18 09/26/18 09/26/18 03:10 04:00 04:15 04:58 Temp 97.9 Pulse 67 65 Resp 17 22 B/P (MAP) 132/70 (90) Pulse Ox 95 95 96 O2 Delivery Mechanical Ventilator Mechanical Ventilator O2 Flow Rate 50.00 50.00 FiO2 50 50 09/26/18 09/26/18 09/26/18 05:00 06:00 06:25 Pulse 69 68 66 Resp 21 22 22 B/P (MAP) 136/88 (104) 132/74 (93) Pulse Ox 93 95 95 O2 Delivery Mechanical Ventilator Mechanical Ventilator O2 Flow Rate 50.00 50.00 FiO2 50 09/26/18 00:00 Intake Total 1406 ml Output Total 1300 ml Balance 106 ml Capillary Refill : Less Than 3 SecondsLess Than 3 Seconds Constitutional: well-developed, well-nourished HEENT: No ulceration Neck: No carotid bruit; carotid pulses are 2 + bilaterally Respiratory: No accessory muscle use, No respiratory distress; chest expansion is symmetric, chest is bilaterally symmetric, other (intubated - fair air entry ) Cardiovascular: regular rate-rhythm; No JVD; S1 and S2, systolic murmur Gastrointestinal: round, audible bowel sounds Extremities: other (mild bilat LE edema) Neurologic/Psychiatric: other (intubated and sedated) Skin: No rash, No ulcerations Data Review Labs Laboratory Tests 09/25/18 12:03: Glucometer 131H 09/25/18 17:35: Glucometer 133H 09/26/18 00:20: Glucometer 130H 09/26/18 03:30: White Blood Count 9.8, Red Blood Count 5.02, Hemoglobin 14.4, Hematocrit 47, Mean Corpuscular Volume 93, Mean Corpuscular Hemoglobin 29, Mean Corpuscular Hemoglobin Concent 31L, Red Cell Distribution Width 17.0H, Platelet Count 131, Mean Platelet Volume 10.9H, Neutrophils (%) (Auto) 76H, Lymphocytes (%) (Auto) 15, Monocytes (%) (Auto) 9, Eosinophils (%) (Auto) 0, Basophils (%) (Auto) 0, Neutrophils # (Auto) 7.4, Lymphocytes # (Auto) 1.5, Monocytes # (Auto) 0.8, Eosinophils # (Auto) 0.0, Basophils # (Auto) 0.0, Sodium Level 141, Potassium Level 4.6, Chloride Level 101, Carbon Dioxide Level 30, Anion Gap 10, Blood Urea Nitrogen 23H, Creatinine 0.89, Estimat Glomerular Filtration Rate > 60, BUN /Creatinine Ratio 26, Glucose Level 130H, Calcium Level 7.9L, Phosphorus Level 2.2L, Magnesium Level 1.7L 09/26/18 03:45: Blood Gas Puncture Site LEFT RADIAL, Blood Gas Patient Temperature 97.9, Arterial Blood pH 7.40, Arterial Blood Partial Pressure CO2 55H, Arterial Blood Partial Pressure O2 80, Arterial Blood HCO3 33H, Arterial Blood Total CO2 35.1H , Arterial Blood Oxygen Saturation 97, Arterial Blood Base Excess 8.4H, Jeff Test POSITIVE, Blood Gas Ventilator Setting YES, Blood Gas Inspired Oxygen 50% Microbiology 09/24/18 Blood Culture - Preliminary, Resulted 09/24/18 Gram Stain - Final, Resulted 09/24/18 Sputum Culture - Preliminary, Resulted Culture In Progress Radiology NAME: [facility] REC#: [id number] PT STATUS: REG ER : 1960 PHYSICIAN: MELIZA AMANDA ADMIT DATE: 09/24/18/ER Signed Date of Exam: 09/24/18 CHEST 1 VIEW, AP/PA ONLY INDICATION: Central line placement. EXAMINATION: Single view of the chest was obtained at 8:50 p.m. FINDINGS: There is cardiomegaly and central vascular congestion with interstitial edema. There is unchanged diffuse infiltrate in the right lung and unchanged right pleural fluid. ET tube and NG tube are stable. There is a new right IJ central catheter with tip overlying the mid SVC. IMPRESSION: New right IJ central catheter tip overlies the mid SVC. There is no pneumothorax seen following line placement. Findings are otherwise unchanged compared to earlier today. Dictated by: Dictated on workstation # [id number] Dict: 09/24/182135 Trans: 09/24/182141 Interpreted by: CHARITY EMERSON MD Electronically signed by: CHARITY EMERSON MD 09/24/18 6393 ECG Impression ECG Initial ECG Rhythm: Normal Sinus A/P-Cardiology Assessment/Admission Diagnosis Acute respiratory failure requiring intubation appears multi-factorial (reasons noted below) Acute on chronic diastolic CHF Pneumonia - management per pulmonary/medical services Acute renal failure likely d/t intravascular vol depletion - improving with IV fluids S/P fall (09-24-18) - not reported as syncopal Right wrist facture s/p fall on 09-24-18 Cardiac cath of May 2017: angiographically mild CAD. LVEF 55-60%. LVEDP at the top limit of normal. No significant MR LVEF 60-65%. Grade 1 diastolic dysfunction. Epicardial fat vs a small amt of pericardial fluid (hemodynamically insignif). PASP approx 25 mmHg. Per echo of Jul 22, 2017 Abdominal u/s of May 2017: the gallbladder is most likely filled with calculi - being followed by Dr. Narayan No evidence of AAA on abd ao screening scan of 04/18/18 Seg pressures of 04/08/18 did not show evidence of significant obstructive PAD COPD Fam h/o early CAD (father to [place] in his early 50s) Chronic tobacco use Hypertension Bipolar disorder Chronic mild, intermittent leg swelling H/O chronic impaired (somewhat slurred) speech Discussion and Recomendations Acute on chronic respiratory failure which is multi-factorial as noted above Acute diastolic CHF - tx with diuretics as tolerated Repeat echocardiogram Pneumonia - management per medical/pulmonary services Acute renal failure - improving with IVF hydration Hypotension Monitor lab closely Further recs will be based on his hospital course We would like to thank medical services for this consult Clinical Quality Measures DVT/VTE Risk/Contraindication: Risk Factor Score Per Nursin RFS Level Per Nursing on Admit: 4+=Very High MENG PACHECO Sep 25, 2018 08:02
--- NOTE | 2018-09-25 08:18 | History & Physicial ---
History of Present Illness History of Present Illness Reason for visit/HPI Patient resident of residential. Patient has an abnormal pneumonia. Patient sent out to the emergency room. Patient fell and has a right wrist fracture. Patient is congestive heart failure. Patient on ventilator and unable to give history. Patient has a history of cocaine use, hepatitis C, COPD, and persistent smoking and will not stop smoking. Patient has low stats. Patient has pleural effusion. Patient has pneumonia. Patient transferred to ICU from emergency room Date of Admission Sep 24, 2018 at 21:46 Time Seen by a Provider: 08:14 I consulted on this patient on 09/25/18 08:13 Attending Physician Abelino Casanova DO Admitting Physician Abelino Casanova DO Consult Allergies and Home Medications Allergies Coded Allergies: No Known Drug Allergies (Unverified , 12/07/16) Home Medications Acetaminophen 325 Mg Tablet, 650 MG PO Q6H PRN for PAIN-MILD, (Reported) TAKES 2 (325MG) TABLETS Aripiprazole 20 Mg Tablet, 20 MG PO DAILY, (Reported) Aspirin 81 Mg Tablet.dr, 81 MG PO DAILY, (Reported) Benzonatate 200 Mg Capsule, 200 MG PO Q8H PRN for COUGH, (Reported) Budesonide/Formoterol Fumarate 10.2 Gm Hfa.aer.ad, 2 PUFF IH BID, (Reported) Escitalopram Oxalate 20 Mg Tablet, 40 MG PO DAILY, (Reported) TAKES 2 (20MG) TABLETS Fluticasone/Salmeterol 1 Each Blst.w.dev, 1 PUFF IH BID, (Reported) Furosemide 20 Mg Tablet, 20 MG PO DAILY, (Reported) Ipratropium/Albuterol Sulfate 3 Ml Ampul.neb, 3 ML IH Q6H, (Reported) Lisinopril 2.5 Mg Tablet, 2.5 MG PO HS, (Reported) Metoprolol Tartrate 25 Mg Tablet, 25 MG PO BID, (Reported) Multivitamin with Minerals 1 Each Tablet, 1 TAB PO DAILY, (Reported) Pantoprazole Sodium 40 Mg Tablet.dr, 40 MG PO DAILY, (Reported) Patient Home Medication List Home Medication List Reviewed: No Past Kddlwbq-Pzynka-Ykqiku Hx Patient Social History Alcohol Use: Occasionally Uses Recreational Drug Use: No (hx of cocaine use) Smoking Status: Current Everyday Smoker Type Used: Cigarettes Physical Abuse Screen: No Sexual Abuse: No Recent Foreign Travel: No Contact w/other who traveled: No Recent Hopitalizations: No Recent Infectious Disease Expo: No Seasonal Allergies Seasonal Allergies: No Surgeries No Respiratory Yes Cardiovascular Yes Neurological No Genitourinary No Gastrointestinal Yes Gastroesophageal Reflux, Hepatitis Musculoskeletal No Endocrine History of Endocrine Disorders: No HEENT History of HEENT Disorders: No Cancer Yes Colon Psychosocial History of Psychiatric Problem: Yes Behavioral Health Disorders: Anxiety, Violent Behavior, Depression Integumentary History of Skin or Integumenta: No Blood Transfusions History of Blood Disorders: Yes (HEP C ) Family Medical History Significant Family History: No Pertinent Family Hx Review of Systems Constitutional: other (Patient on ventilator) EENTM: no symptoms reported Respiratory: short of breath Cardiovascular: other (Patient congestive heart failure) Gastrointestinal: no symptoms reported Genitourinary: no symptoms reported Physical Exam Vital Signs Vital Signs - First Documented 09/24/18 09/24/18 09/24/18 16:29 16:47 20:29 Temp 97.5 Pulse 71 Resp 36 B/P (MAP) 127/74 (91) Pulse Ox 61 O2 Delivery Room Air O2 Flow Rate 5.00 FiO2 40 Capillary Refill : Less Than 3 SecondsLess Than 3 Seconds Height, Weight, BMI Height: 5'7.00" Weight: 243lbs. 3.0oz. 110.097900tc; 38.1 BMI Method:Stated General Appearance: Other (Patient on ventilator) HEENT: Normal ENT Inspection Neck: Normal Inspection Respiratory: Other (Patient on vent) Cardiovascular: Regular Rate, Rhythm Gastrointestinal: Non Tender, Soft Assessment/Plan Assessment and Plan Acute and chronic respiratory failure. Pneumonia. Right sided pleural effusion. Hypotension. Acute renal failure. Fractured wrist. Tobacco usage. Hep C. COPD. Persistent smoking noncompliant Admission Diagnosis Admission Status: Inpatient Order (span 2 midnights) Reason for Inpatient Admission: Patient on ventilator. Fractured wrist right pleural effusion Clinical Quality Measures DVT/VTE Risk/Contraindication: Risk Factor Score Per Nursin RFS Level Per Nursing on Admit: 4+=Very High ABELINO CASANOVA DO Sep 25, 2018 08:18
[2018-09-25] MEDS: NS IV 1000 ML 1,000 ML IV SCH ×3 (08:34→22:04)
[2018-09-25] MEDS: PANTOPRAZOLE 40 MG (PROTONIX) VIAL IV SCH (08:38)
[2018-09-25] MEDS: CHLORHEXIDINE 0.12% SOLN 15 ML (PERIDEX) UDC PO SCH ×2 (08:38→20:43)
[2018-09-25] MEDS ORDERED: FUROSEMIDE 40 MG/4 ML INJ (LASIX) IV SCH (09:00)
[2018-09-25] MEDS ORDERED: FUROSEMIDE 40 MG/4 ML INJ (LASIX) IVP ONE (09:15)
[2018-09-25] MEDS ORDERED: MULT-35 PO (09:28)
[2018-09-25] MEDS ORDERED: DIVA125C10 PO (09:28)
[2018-09-25] MEDS ORDERED: CLON0.5T13 PO (09:28)
[2018-09-25] MEDS ORDERED: CARB15DR OU (09:28)
[2018-09-25] MEDS ORDERED: CARB15DR51 EACH EAR (09:28)
[2018-09-25] MEDS ORDERED: ONDN4T PO (09:28)
[2018-09-25] MEDS: NOREPINEPHRINE 4 MG in NS (IVPB) 250 ML IV SCH (13:55)
[2018-09-25] MEDS: DEXMEDETOMIDINE INJECTION 200 MCG in NS (IVPB) 50 ML IV SCH ×2 (15:13→19:40)
--- NOTE | 2018-09-25 15:27 | Consultation-Cardiology ---
HPI-Cardiology Cardiology Consultation: Date of Consultation 09/25/18 Time Seen by a Provider: 12:50 Date of Admission Attending Physician Abelino Lacey DO Admitting Physician Abelino Lacey DO Consulting Physician ERIN HUTCHINSON MD, MA, FACP, FACC, FSCAI, CCDS HPI: Chief Complaint: Reason for consultation: Resp failure Mr. Brower is a 58 year old male admitted to ICU 11 from the ED. He is currently intubated and sedated. Information has been obtain from a review of the chart and nursing. He was brought to the ED yesterday from the [facility] facility in which he resides d/t a fall. During evaluation in the ED he was found to have low O2 sats in the 50's. CXR showed infiltrates. His respiratory status did not improve and therefore intubation was carried out. Review of Systems-Cardiology Review of Systems Constitutional: other (he is intubated, sedated, on mech vent, and unable to provide a review of systems) All Other Systems Reviewed Negative Unless Noted: Yes HLM-[id number]-Bmhyha Hx Patient Social History Alcohol Use: Occasionally Uses Recreational Drug Use: No (hx of cocaine use) Smoking Status: Current Everyday Smoker Type Used: Cigarettes Recent Foreign Travel: No Recent Infectious Disease Expo: No Hospitalization with Isolation: Denies Physical Abuse Screen: No Sexual Abuse: No Past Medical History PMH As described under Assessment. Family Medical History Family Medical History: Unable to obtain d/t intubation and sedation Allergies and Home Medications Allergies Coded Allergies: No Known Drug Allergies (Unverified , 12/07/16) Home Medications Acetaminophen 325 Mg Tablet, 650 MG PO Q6H PRN for PAIN-MILD, (Reported) TAKES 2 (325MG) TABLETS Aripiprazole 20 Mg Tablet, 20 MG PO DAILY, (Reported) Aspirin 81 Mg Tablet.dr, 81 MG PO DAILY, (Reported) Benzonatate 200 Mg Capsule, 200 MG PO Q8H PRN for COUGH, (Reported) Budesonide/Formoterol Fumarate 10.2 Gm Hfa.aer.ad, 2 PUFF IH BID, (Reported) Carbamide Peroxide 15 Ml Drops, 5 DROPS EACH EAR Q12H PRN for EAR WAX BUILD UP, (Reported) Carboxymethylcellulose Sodium 15 Ml Drops, 1 DROP OU Q4H PRN for DRY EYES, ( Reported) Clonazepam 0.5 Mg Tablet, 0.5 MG PO BID, (Reported) Divalproex Sodium 125 Mg Cap.sprink, 125 MG PO TID, (Reported) Escitalopram Oxalate 20 Mg Tablet, 40 MG PO DAILY, (Reported) TAKES 2 (20MG) TABLETS Furosemide 20 Mg Tablet, 20 MG PO DAILY, (Reported) Ipratropium/Albuterol Sulfate 3 Ml Ampul.neb, 3 ML NEB Q6H, (Reported) Lisinopril 2.5 Mg Tablet, 2.5 MG PO HS, (Reported) Metoprolol Tartrate 25 Mg Tablet, 25 MG PO BID, (Reported) HOLD FOR SYSTOLIC BP < 100 Multivitamin 1 Each Tablet, 1 TAB PO DAILY, (Reported) Ondansetron HCl 4 Mg Tab, 4 MG PO Q4H PRN for NAUSEA/VOMITING-1ST LINE, ( Reported) Pantoprazole Sodium 40 Mg Tablet.dr, 40 MG PO DAILY, (Reported) Patient Home Medication List Home Medication List Reviewed: Yes Physical Exam-Cardiology Physical Exam Vital Signs/I&O 09/25/18 09/25/18 09/25/18 09/25/18 03:47 04:00 04:00 05:00 Pulse 66 82 73 Resp 22 12 22 B/P (MAP) 115/54 (74) 95/52 (66) Pulse Ox 94 95 91 95 O2 Delivery Mechanical Ventilator Mechanical Ventilator Mechanical Ventilator O2 Flow Rate 50.00 50.00 50.00 FiO2 50 09/25/18 09/25/18 09/25/18 09/25/18 06:00 06:36 07:00 07:00 Pulse 69 68 88 88 Resp 23 22 21 B/P (MAP) 96/52 (67) 87/46 (60) Pulse Ox 94 95 94 O2 Delivery Mechanical Ventilator Mechanical Ventilator O2 Flow Rate 50.00 50.00 FiO2 50 09/25/18 09/25/18 09/25/18 09/25/18 08:00 08:00 08:58 09:00 Pulse 77 75 75 Resp 18 B/P (MAP) 90/52 (65) 89/48 (62) Pulse Ox 96 95 95 95 O2 Delivery Mechanical Ventilator Mechanical Ventilator Mechanical Ventilator O2 Flow Rate 50.00 50.00 50.00 FiO2 50 09/25/18 09/25/18 09/25/18 09/25/18 10:00 10:28 11:00 11:33 Pulse 72 71 71 Resp 19 22 29 B/P (MAP) 96/50 (65) 122/76 (91) Pulse Ox 95 96 95 96 O2 Delivery Mechanical Ventilator Mechanical Ventilator Mechanical Ventilator O2 Flow Rate 50.00 50.00 50.00 FiO2 50 09/25/18 09/25/18 09/25/18 09/25/18 12:00 13:00 13:00 13:38 Pulse 93 81 81 Resp 17 47 B/P (MAP) 89/48 (62) 99/55 (70) 103/54 Pulse Ox 96 96 O2 Delivery Mechanical Ventilator Mechanical Ventilator O2 Flow Rate 50.00 50.00 09/25/18 09/25/18 14:00 14:00 Pulse 93 94 Resp 22 35 B/P (MAP) 97/49 (65) Pulse Ox 95 93 O2 Delivery Mechanical Ventilator O2 Flow Rate 50.00 FiO2 50 09/25/18 00:00 Intake Total 1200 ml Output Total 1400 ml Balance -200 ml Capillary Refill : Less Than 3 SecondsLess Than 3 Seconds Constitutional: well-developed, well-nourished HEENT: No ulceration Neck: No carotid bruit; carotid pulses are 2 + bilaterally Respiratory: No accessory muscle use, No respiratory distress; chest expansion is symmetric, chest is bilaterally symmetric, other (intubated - fair air entry ) Cardiovascular: regular rate-rhythm; No JVD; S1 and S2, systolic murmur Gastrointestinal: round, audible bowel sounds Extremities: other (mild bilat LE edema) Neurologic/Psychiatric: other (intubated and sedated) Skin: No rash, No ulcerations Data Review Labs Laboratory Tests 09/24/18 17:05: White Blood Count 11.6H, Red Blood Count 5.05, Hemoglobin 14.6, Hematocrit 48, Mean Corpuscular Volume 95, Mean Corpuscular Hemoglobin 29, Mean Corpuscular Hemoglobin Concent 31L, Red Cell Distribution Width 16.9H, Platelet Count 147, Mean Platelet Volume 11.3H, Neutrophils (%) (Auto) 66, Lymphocytes (%) (Auto) 20 , Monocytes (%) (Auto) 13H, Eosinophils (%) (Auto) 1, Basophils (%) (Auto) 0, Neutrophils # (Auto) 7.7, Lymphocytes # (Auto) 2.3, Monocytes # (Auto) 1.5H, Eosinophils # (Auto) 0.1, Basophils # (Auto) 0.0, Sodium Level 137, Potassium Level 5.8H, Chloride Level 94L, Carbon Dioxide Level 32, Anion Gap 11, Blood Urea Nitrogen 35H, Creatinine 1.52H, Estimat Glomerular Filtration Rate 47, BUN/ Creatinine Ratio 23, Glucose Level 117H, Calcium Level 8.7, Corrected Calcium 9.0, Total Bilirubin 0.6, Aspartate Amino Transf (AST/SGOT) 30, Alanine Aminotransferase (ALT/SGPT) 26, Alkaline Phosphatase 55, C-Reactive Protein High Sensitivity 1.68H, B-Type Natriuretic Peptide 1291.1H, Total Protein 7.3, Albumin 3.6 09/24/18 18:45: Lactic Acid Level 1.52 09/24/18 19:38: Blood Gas Puncture Site LEFT RADIAL, Blood Gas Patient Temperature 97.5, Arterial Blood pH 7.28*L, Arterial Blood Partial Pressure CO2 83*H, Arterial Blood Partial Pressure O2 74L, Arterial Blood HCO3 38H, Arterial Blood Total CO2 40.2H, Arterial Blood Oxygen Saturation 94, Arterial Blood Base Excess 10.6H , Jeff Test POSITIVE, Blood Gas Ventilator Setting NO, Blood Gas Inspired Oxygen 4.5 L 09/25/18 01:45: Blood Gas Puncture Site L RAD, Blood Gas Patient Temperature 96.6, Arterial Blood pH 7.36L, Arterial Blood Partial Pressure CO2 62H, Arterial Blood Partial Pressure O2 60L, Arterial Blood HCO3 35H, Arterial Blood Total CO2 36.9H, Arterial Blood Oxygen Saturation 92L, Arterial Blood Base Excess 9.1H, Jeff Test YES-POS, Blood Gas Ventilator Setting YES, Blood Gas Inspired Oxygen 50% 09/25/18 03:05: White Blood Count 11.1H, Red Blood Count 4.91, Hemoglobin 14.4, Hematocrit 46, Mean Corpuscular Volume 94, Mean Corpuscular Hemoglobin 29, Mean Corpuscular Hemoglobin Concent 31L, Red Cell Distribution Width 16.8H, Platelet Count 148, Mean Platelet Volume 10.6H, Neutrophils (%) (Auto) 92H, Lymphocytes (%) (Auto) 6L, Monocytes (%) (Auto) 2, Eosinophils (%) (Auto) 0, Basophils (%) (Auto) 0, Neutrophils # (Auto) 10.3H, Lymphocytes # (Auto) 0.6L, Monocytes # (Auto) 0.2, Eosinophils # (Auto) 0.0, Basophils # (Auto) 0.0, Neutrophils % (Manual) 90, Lymphocytes % (Manual) 4, Monocytes % (Manual) 3, Eosinophils % (Manual) 0, Basophils % (Manual) 0, Band Neutrophils 3, Polychromasia SLIGHT, Hypochromasia SLIGHT, Anisocytosis SLIGHT, Stomatocytes SLIGHT, Sodium Level 139, Potassium Level 4.9, Chloride Level 97L, Carbon Dioxide Level 29, Anion Gap 13, Blood Urea Nitrogen 30H, Creatinine 1.30, Estimat Glomerular Filtration Rate 56, BUN/ Creatinine Ratio 23, Glucose Level 186H, Calcium Level 7.9L, Corrected Calcium 8.6, Phosphorus Level 2.9, Magnesium Level 1.9, Total Bilirubin 1.0, Aspartate Amino Transf (AST/SGOT) 21, Alanine Aminotransferase (ALT/SGPT) 19, Alkaline Phosphatase 48, Total Protein 6.3L, Albumin 3.1L, Triglycerides Level 113 09/25/18 12:03: Glucometer 131H Microbiology 09/24/18 Gram Stain - Final, Resulted 09/24/18 Sputum Culture, Resulted Pending Laboratory Tests 09/24/18 17:05 09/25/18 03:05 A/P-Cardiology Assessment/Admission Diagnosis Acute respiratory failure requiring intubation appears multi-factorial (reasons noted below) Pneumonia - management per Pulmonary and Medical services Acute on chronic diastolic CHF Acute renal failure likely d/t intravascular vol depletion - improving with IV fluids S/P fall (09-24-18) - not reported as syncopal Right wrist facture s/p fall on 09-24-18 Cardiac cath of May 2017: angiographically mild CAD. LVEF 55-60%. LVEDP at the top limit of normal. No significant MR Echo of 09/25/18: LVEF 60-65%, PASP approx 25 mmHg Abdominal u/s of May 2017: the gallbladder is most likely filled with calculi - being followed by Dr. Narayan No evidence of AAA on abd ao screening scan of 04/18/18 Seg pressures of 04/08/18 did not show evidence of significant obstructive PAD COPD Fam h/o early CAD (father to [place] in his early 50s) Chronic tobacco use Hypertension Bipolar disorder Chronic mild, intermittent leg swelling H/O chronic impaired (somewhat slurred) speech Discussion and Recomendations Acute on chronic respiratory failure which is multi-factorial as noted above Acute diastolic CHF - tx with diuretics as tolerated Repeat echocardiogram (done and reported above) Pneumonia - management per Medicaland Pulmonary services Acute renal failure - improving with IVF hydration Monitor lab closely Further recs will be based on his hospital course We would like to thank Medical Services for this consult Clinical Quality Measures DVT/VTE Risk/Contraindication: Risk Factor Score Per Nursin RFS Level Per Nursing on Admit: 4+=Very High ERIN HUTCHINSON MD FACP FAC CCDS Sep 25, 2018 15:27
[2018-09-25] MEDS ORDERED: FLU QUADRIvalent (5+ YOA) 2018-2019 (AFLURIA) 0.5 ML IM ONE (18:45)
[2018-09-26] VITALS (35 sets, daily range): BP systolic 116–169; BP diastolic 67–89
[2018-09-26] MEDS: DEXMEDETOMIDINE INJECTION 200 MCG in NS (IVPB) 50 ML IV SCH ×5 (02:04→21:42)
[2018-09-26] MEDS: PROPOFOL DRIP (ICU) 100 ML IV SCH ×4 (02:21→18:30)
[2018-09-26] MEDS: RT-ALBUTEROL/IPRATROPIUM 3 ML (DUONEB) VIAL INH SCH ×6 (02:54→22:33)
[2018-09-26 03:59] LABS: ABG BASE EXCESS 8.4 MMOL/L (-2.5-2.5); ABG OXYGEN SATURATION 97 % (94-100); ABG PCO2 55 MMHG (35-45); ABG PO2 80 MMHG (79-93); ABG TCO2 35.1 MMOL/L (21.0-31.0)
[2018-09-26 04:00] LABS: ALLENS TEST POSITIVE; INSPIRED O2 50%; PATIENT TEMP 97.9; VENTILATOR YES
[2018-09-26 04:19] LABS: BUN/CREATININE RATIO 26; CALCIUM 7.9 MG/DL (8.5-10.1); CARBON DIOXIDE 30 MMOL/L (21-32); CHLORIDE 101 MMOL/L (98-107); CREATININE SERUM 0.89 MG/DL (0.60-1.30); GFR ESTIMATED > 60; GLUCOSE 130 MG/DL (70-105); MAGNESIUM 1.7 MG/DL (1.8-2.4); PHOSPHORUS 2.2 MG/DL (2.3-4.7); POTASSIUM 4.6 MMOL/L (3.6-5.0); SODIUM 141 MMOL/L (135-145)
[2018-09-26 04:20] LABS: BASOPHILS % (AUTO) 0 % (0-10); EOSINOPHILS % (AUTO) 0 % (0-10); HEMATOCRIT 47 % (40-54); HEMOGLOBIN 14.4 G/DL (13.3-17.7); LYMPHOCYTES # (AUTO) 1.5 X 10^3 (1.0-4.0); LYMPHOCYTES % (AUTO) 15 % (12-44); MEAN CORPUSCULAR HEMOGLOBIN 29 PG (25-34); MEAN CORPUSCULAR HGB CONC 31 G/DL (32-36); MEAN CORPUSCULAR VOLUME 93 FL (80-99); MEAN PLATELET VOLUME 10.9 FL (7.4-10.4); MONOCYTES # (AUTO) 0.8 X 10^3 (0.0-1.0); MONOCYTES % (AUTO) 9 % (0-12); NEUTROPHILS # (AUTO) 7.4 X 10^3 (1.8-7.8); NEUTROPHILS % (AUTO) 76 % (42-75); PLATELET COUNT 131 10^3/uL (130-400); RED BLOOD COUNT 5.02 10^6/uL (4.35-5.85); WHITE BLOOD COUNT 9.8 10^3/uL (4.3-11.0)
[2018-09-26] MEDS: NS IV 1000 ML 1,000 ML IV SCH ×2 (04:23→15:36)
[2018-09-26] MEDS: MAGNESIUM 1 GM/100 ML IVPB 100 ML IV SCH ×3 (04:31→05:25)
[2018-09-26] MEDS: POTASSIUM CL 10MEQ/50ML IVPB 50 ML IV SCH (04:34)
[2018-09-26] MEDS: KCL 20 MEQ TAB (K-DUR) PO SCH (04:34)
--- NOTE | 2018-09-26 05:00 | Pulmonary Progress Note ---
BRAYAN VERDUZCO MED STUDENT 09/26/18 0500: Subjective Date Seen by a Provider: Sep 26, 2018 Time Seen by a Provider: 04:54 Subjective/Events-last exam Nurse reports no acute overnight events patient appears to be comfortable, on ventilator for respiratory support Sepsis Event Evaluation Height, Weight, BMI Height: 5'7.00" Weight: 243lbs. 3.0oz. 110.822774ut; 38.1 BMI Method:Stated Focused Exam Lactate Level 09/24/18 18:45: Lactic Acid Level 1.52 Respiratory: Chest Non Tender, Lungs Clear, Normal Breath Sounds, No Accessory Muscle Use, Other (on ventilator) Cardiovascular: Regular Rate, Rhythm, No Murmur, Other (some pedal edema) Skin: normal color, warm/dry Exam Exam Vital Signs Date Time Temp Pulse Resp B/P (MAP) Pulse Ox O2 Delivery O2 Flow Rate FiO2 09/26/18 04:15 97.9 50.00 09/26/18 04:00 67 17 132/70 (90) 95 Mechanical Ventilator 50.00 09/26/18 03:10 95 Mechanical Ventilator 50 09/26/18 03:00 64 21 132/70 (90) 96 Mechanical Ventilator 50.00 09/26/18 02:54 65 22 96 50 09/26/18 02:21 67 21 133/75 96 Mechanical Ventilator 50.00 09/26/18 02:00 65 21 133/75 (94) 95 Mechanical Ventilator 50.00 09/26/18 01:00 68 21 124/72 (89) 94 Mechanical Ventilator 50.00 09/26/18 01:00 68 09/26/18 00:30 94 Mechanical Ventilator 50 09/26/18 00:00 97.1 68 22 137/76 (96) 95 Mechanical Ventilator 50.00 09/25/18 23:00 73 18 125/70 (88) 97 Mechanical Ventilator 50.00 09/25/18 22:51 78 24 97 50 09/25/18 22:45 73 140/78 (98) 96 Mechanical Ventilator 50.00 09/25/18 21:00 79 21 133/72 (92) 93 Mechanical Ventilator 50.00 09/25/18 20:00 97.8 09/25/18 20:00 80 25 132/69 (90) 94 Mechanical Ventilator 50.00 12/6/18 20:00 96 Mechanical Ventilator 50.00 09/25/18 19:53 81 22 123/65 96 Mechanical Ventilator 50.00 09/25/18 19:08 80 22 96 50 09/25/18 19:00 76 132/69 (90) 94 Mechanical Ventilator 50.00 09/25/18 19:00 81 09/25/18 18:00 80 26 97/51 (66) 93 Mechanical Ventilator 50.00 09/25/18 17:00 85 21 112/61 (78) 94 Mechanical Ventilator 50.00 09/25/18 16:56 86 22 94 50 09/25/18 16:00 90 12 91/50 (64) 94 Mechanical Ventilator 50.00 09/25/18 16:00 96 Mechanical Ventilator 50.00 09/25/18 15:00 90 21 93/49 (64) 93 Mechanical Ventilator 50.00 09/25/18 14:00 94 35 97/49 (65) 93 Mechanical Ventilator 50.00 09/25/18 14:00 93 22 95 50 09/25/18 13:38 103/54 09/25/18 13:00 81 47 99/55 (70) 96 Mechanical Ventilator 50.00 09/25/18 13:00 81 09/25/18 12:00 93 17 89/48 (62) 96 Mechanical Ventilator 50.00 09/25/18 11:33 96 Mechanical Ventilator 50.00 09/25/18 11:00 71 29 122/76 (91) 95 Mechanical Ventilator 50.00 09/25/18 10:28 71 22 96 50 09/25/18 10:00 72 19 96/50 (65) 95 Mechanical Ventilator 50.00 09/25/18 09:00 75 18 89/48 (62) 95 Mechanical Ventilator 50.00 09/25/18 08:58 75 22 95 50 09/25/18 08:00 77 21 90/52 (65) 95 Mechanical Ventilator 50.00 09/25/18 08:00 96 Mechanical Ventilator 50.00 09/25/18 07:00 88 21 87/46 (60) 94 Mechanical Ventilator 50.00 09/25/18 07:00 88 09/25/18 06:36 68 22 95 50 09/25/18 06:00 69 23 96/52 (67) 94 Mechanical Ventilator 50.00 09/25/18 05:00 73 22 95/52 (66) 95 Mechanical Ventilator 50.00 I & O 09/26/18 07:00 Intake Total 3688 ml Output Total 1775 ml Balance 1913 ml Height & Weight Height: 5'7.00" Weight: 243lbs. 3.0oz. 110.251426mh; 38.1 BMI Method:Stated General Appearance: Other (Patient on ventilator) HEENT: Normal ENT Inspection Neck: Normal Inspection Respiratory: Other (Patient on vent) Cardiovascular: Regular Rate, Rhythm Capillary Refill: Less Than 3 Seconds Gastrointestinal: non tender, soft Extremity: Pedal Edema Skin: Normal Color, Warm/Dry Results Lab Laboratory Tests 09/24/18 17:05 09/25/18 03:05 09/26/18 03:30 Assessment/Plan Assessment/Plan Acute on chronic respiratory failure -Continue ventilator therapy -ABG improved this AM --Pneumonia with right loculated pleural effusion -- NOT SEPSIS SINCE HE DOES NOT MEET SIRS CRITERIA -Thick yellow sputum from ET tube -Continue Zosyn -Ruiz cultures -Monitor close Hypotension secondary to dehydration and intubation -Hold lasix -Levophed gtt -titrate to d/c as tolerated -BP this am 132/70, consider d/c Levophed Acute renal failure - improving with IVF KEYONA EVANS DO 09/26/18 0529: Subjective Time Seen by a Provider: 05:28 Subjective/Events-last exam Sedated on ventilator. No complications noted. Exam Exam General Appearance: No Apparent Distress, Other (Patient on ventilator) Neck: Normal Inspection Respiratory: Other (Patient on vent) Cardiovascular: Regular Rate, Rhythm Gastrointestinal: non tender, soft Extremity: Pedal Edema Skin: Normal Color, Warm/Dry Assessment/Plan Assessment/Plan Acute on chronic respiratory failure -Continue ventilator therapy -Decrease PEEP to 5 -ABG improved this AM --Pneumonia with right loculated pleural effusion -- NOT SEPSIS SINCE HE DOES NOT MEET SIRS CRITERIA -Doubt emphyema - leukocytosis improving. never had fever -Thick yellow sputum from ET tube -Decrease IVF to 50cc/hr -Continue Zosyn -Ruiz cultures pending -Monitor close Hypotension secondary to dehydration and intubation -Hold lasix -Levophed gtt is now off -BP this am 132/70, consider d/c Levophed Acute renal failure - improving with IVF BRAYAN VERDUZCO MED STUDENT Sep 26, 2018 05:00 KEYONA EVANS DO Sep 26, 2018 05:29
[2018-09-26] MEDS: PIPERACILLIN SODIUM/TAZOBACTAM 4.5 GM in NS (IVPB) 100 ML IV SCH ×3 (06:18→21:39)
[2018-09-26] MEDS ORDERED: SODIUM PHOSPHATE INJ 30 MM in NS (IVPB) 250 ML IV ONE (07:00)
--- NOTE | 2018-09-26 07:13 | Diagnostic Imaging Report ---
INDICATION: Pneumonia. COMPARISON: 09/24/2018. FINDINGS: Single view of the chest demonstrates stable support lines. The heart is enlarged with central vascular congestion. There is increasing opacification in the right lung base. No pneumothorax is seen. IMPRESSION: 1. Stable support lines. 2. Cardiac enlargement with stable central vascular congestion. 3. Increasing opacity right lung base. Continued followup recommended. Dictated by: Dictated on workstation # [id number]
--- NOTE | 2018-09-26 07:46 | Progress Note (SOAP) ---
Subjective Time Seen by a Provider: 07:43 Subjective/Events-last exam Patient resting comfortably on ventilator. Patient blood pressure better. Going off Levophed. Chest x-ray shows increased opacity of right lung base area Patient's kidney function normal now. Focused Exam Lactate Level 09/24/18 18:45: Lactic Acid Level 1.52 Objective Exam Vital Signs Date Time Temp Pulse Resp B/P (MAP) Pulse Ox O2 Delivery O2 Flow Rate FiO2 09/26/18 06:25 66 22 95 50 09/26/18 06:00 68 22 132/74 (93) 95 Mechanical Ventilator 50.00 09/26/18 05:00 69 21 136/88 (104) 93 Mechanical Ventilator 50.00 09/26/18 04:58 65 22 96 50 09/26/18 04:15 97.9 50.00 09/26/18 04:00 67 17 132/70 (90) 95 Mechanical Ventilator 50.00 09/26/18 03:10 95 Mechanical Ventilator 50 09/26/18 03:00 64 21 132/70 (90) 96 Mechanical Ventilator 50.00 09/26/18 02:54 65 22 96 50 09/26/18 02:21 67 21 133/75 96 Mechanical Ventilator 50.00 09/26/18 02:00 65 21 133/75 (94) 95 Mechanical Ventilator 50.00 09/26/18 01:00 68 21 124/72 (89) 94 Mechanical Ventilator 50.00 09/26/18 01:00 68 09/26/18 00:30 94 Mechanical Ventilator 50 09/26/18 00:00 97.1 68 22 137/76 (96) 95 Mechanical Ventilator 50.00 09/25/18 23:00 73 18 125/70 (88) 97 Mechanical Ventilator 50.00 09/25/18 22:51 78 24 97 50 09/25/18 22:45 73 140/78 (98) 96 Mechanical Ventilator 50.00 09/25/18 21:00 79 21 133/72 (92) 93 Mechanical Ventilator 50.00 09/25/18 20:00 97.8 09/25/18 20:00 80 25 132/69 (90) 94 Mechanical Ventilator 50.00 09/25/18 20:00 96 Mechanical Ventilator 50.00 09/25/18 19:53 81 22 123/65 96 Mechanical Ventilator 50.00 09/25/18 19:08 80 22 96 50 09/25/18 19:00 76 132/69 (90) 94 Mechanical Ventilator 50.00 09/25/18 19:00 81 09/25/18 18:00 80 26 97/51 (66) 93 Mechanical Ventilator 50.00 09/25/18 17:00 85 21 112/61 (78) 94 Mechanical Ventilator 50.00 09/25/18 16:56 86 22 94 50 09/25/18 16:00 90 12 91/50 (64) 94 Mechanical Ventilator 50.00 09/25/18 16:00 96 Mechanical Ventilator 50.00 09/25/18 15:00 90 21 93/49 (64) 93 Mechanical Ventilator 50.00 09/25/18 14:00 94 35 97/49 (65) 93 Mechanical Ventilator 50.00 09/25/18 14:00 93 22 95 50 09/25/18 13:38 103/54 09/25/18 13:00 81 47 99/55 (70) 96 Mechanical Ventilator 50.00 09/25/18 13:00 81 09/25/18 12:00 93 17 89/48 (62) 96 Mechanical Ventilator 50.00 09/25/18 11:33 96 Mechanical Ventilator 50.00 09/25/18 11:00 71 29 122/76 (91) 95 Mechanical Ventilator 50.00 09/25/18 10:28 71 22 96 50 09/25/18 10:00 72 19 96/50 (65) 95 Mechanical Ventilator 50.00 09/25/18 09:00 75 18 89/48 (62) 95 Mechanical Ventilator 50.00 09/25/18 08:58 75 22 95 50 09/25/18 08:00 77 21 90/52 (65) 95 Mechanical Ventilator 50.00 09/25/18 08:00 96 Mechanical Ventilator 50.00 I & O 09/26/18 07:00 Intake Total 3970 ml Output Total 2020 ml Balance 1950 ml Capillary Refill : Less Than 3 SecondsLess Than 3 Seconds General Appearance: No Apparent Distress, WD/WN Respiratory: No Accessory Muscle Use, No Respiratory Distress Cardiovascular: Regular Rate, Rhythm, No Murmur Gastrointestinal: non tender, soft Results Lab Laboratory Tests 09/26/18 03:30 Laboratory Tests 09/25/18 12:03: Glucometer 131H 09/25/18 17:35: Glucometer 133H 09/26/18 00:20: Glucometer 130H 09/26/18 03:30: White Blood Count 9.8, Red Blood Count 5.02, Hemoglobin 14.4, Hematocrit 47, Mean Corpuscular Volume 93, Mean Corpuscular Hemoglobin 29, Mean Corpuscular Hemoglobin Concent 31L, Red Cell Distribution Width 17.0H, Platelet Count 131, Mean Platelet Volume 10.9H, Neutrophils (%) (Auto) 76H, Lymphocytes (%) (Auto) 15, Monocytes (%) (Auto) 9, Eosinophils (%) (Auto) 0, Basophils (%) (Auto) 0, Neutrophils # (Auto) 7.4, Lymphocytes # (Auto) 1.5, Monocytes # (Auto) 0.8, Eosinophils # (Auto) 0.0, Basophils # (Auto) 0.0, Sodium Level 141, Potassium Level 4.6, Chloride Level 101, Carbon Dioxide Level 30, Anion Gap 10, Blood Urea Nitrogen 23H, Creatinine 0.89, Estimat Glomerular Filtration Rate > 60, BUN /Creatinine Ratio 26, Glucose Level 130H, Calcium Level 7.9L, Phosphorus Level 2.2L, Magnesium Level 1.7L 09/26/18 03:45: Blood Gas Puncture Site LEFT RADIAL, Blood Gas Patient Temperature 97.9, Arterial Blood pH 7.40, Arterial Blood Partial Pressure CO2 55H, Arterial Blood Partial Pressure O2 80, Arterial Blood HCO3 33H, Arterial Blood Total CO2 35.1H , Arterial Blood Oxygen Saturation 97, Arterial Blood Base Excess 8.4H, Jeff Test POSITIVE, Blood Gas Ventilator Setting YES, Blood Gas Inspired Oxygen 50% Microbiology 09/24/18 Blood Culture - Preliminary, Resulted 09/24/18 Gram Stain - Final, Resulted 09/24/18 Sputum Culture - Preliminary, Resulted Culture In Progress Assessment/Plan Assessment/Plan Assess & Plan/Chief Complaint Pneumonia. Acute and chronic respiratory failure. Renal insufficiency back to normal. Hypotension better going off Levophed. Pneumonia on x-ray looks worse than yesterday. Congestive heart failure Clinical Quality Measures Admission Status Admission Dx Acute and chronic respiratory failure. Pneumonia. Right sided pleural effusion. Hypotension. Acute renal failure. Fractured wrist. Tobacco usage. Hep C. COPD. Persistent smoking noncompliant DVT/VTE Risk/Contraindication: Risk Factor Score Per Nursin RFS Level Per Nursing on Admit: 4+=Very High GELLENDER,ART A DO Sep 26, 2018 07:46
[2018-09-26] MEDS ORDERED: FUROSEMIDE 40 MG/4 ML INJ (LASIX) IVP NR (08:00)
[2018-09-26] MEDS: PANTOPRAZOLE 40 MG (PROTONIX) VIAL IV SCH (09:02)
[2018-09-26] MEDS: CHLORHEXIDINE 0.12% SOLN 15 ML (PERIDEX) UDC PO SCH ×2 (09:03→21:38)
--- NOTE | 2018-09-26 09:13 | Progress Note-Cardiology ---
Cardiology SOAP Progress Note Subjective: Remains intubated and sedated Objective: I&O/Vital Signs 09/26/18 09/26/18 09/26/18 09/26/18 02:54 03:00 03:10 04:00 Pulse 65 64 67 Resp 22 21 17 B/P (MAP) 132/70 (90) 132/70 (90) Pulse Ox 96 96 95 95 O2 Delivery Mechanical Ventilator Mechanical Ventilator Mechanical Ventilator O2 Flow Rate 50.00 50.00 FiO2 50 50 09/26/18 09/26/18 09/26/18 09/26/18 04:15 04:58 05:00 06:00 Temp 97.9 Pulse 65 69 68 Resp 22 21 22 B/P (MAP) 136/88 (104) 132/74 (93) Pulse Ox 96 93 95 O2 Delivery Mechanical Ventilator Mechanical Ventilator O2 Flow Rate 50.00 50.00 50.00 FiO2 50 09/26/18 09/26/18 09/26/18 09/26/18 06:25 07:00 07:00 08:00 Pulse 66 115 67 111 Resp 22 20 14 B/P (MAP) 169/73 (105) 133/85 (101) Pulse Ox 95 97 O2 Delivery Mechanical Ventilator Mechanical Ventilator O2 Flow Rate 50.00 50.00 FiO2 50 09/26/18 09/26/18 09/26/18 09/26/18 08:27 08:45 09:00 09:03 Temp 96.2 Pulse 67 101 Resp 22 20 B/P (MAP) 134/67 (89) Pulse Ox 95 95 92 O2 Delivery Mechanical Ventilator Mechanical Ventilator O2 Flow Rate 50.00 FiO2 50 50 09/26/18 09/26/18 09/26/18 09/26/18 09:41 10:01 12:00 12:00 Temp 97.2 Pulse 65 69 68 Resp 22 22 22 B/P (MAP) 124/73 Pulse Ox 96 94 96 95 O2 Delivery Mechanical Ventilator Mechanical Ventilator O2 Flow Rate 50.00 FiO2 50 50 50 09/26/18 13:52 Temp 98.2 09/26/18 00:00 Intake Total 1406 ml Output Total 1300 ml Balance 106 ml Weight (Pounds): 256 Weight (Ounces): 5.0 Weight (Calculated Kilograms): 116.776363 Constitutional: well-developed, well-nourished Respiratory: No accessory muscle use, No respiratory distress; chest expansion is symmetric, chest is bilaterally symmetric, rhonchi (scattered), other ( intubated - fair air entry ) Cardiovascular: regular rate-rhythm; No JVD; S1 and S2, systolic murmur Gastrointestional: round, audible bowel sounds Extremities: other (mild bilat LE edema) Neurologic/Psychiatric: other (intubated and sedated) Skin: normal color, warm/dry Results/Procedures: Labs Laboratory Tests 09/25/18 17:35: Glucometer 133H 09/26/18 00:20: Glucometer 130H 09/26/18 03:30: White Blood Count 9.8, Red Blood Count 5.02, Hemoglobin 14.4, Hematocrit 47, Mean Corpuscular Volume 93, Mean Corpuscular Hemoglobin 29, Mean Corpuscular Hemoglobin Concent 31L, Red Cell Distribution Width 17.0H, Platelet Count 131, Mean Platelet Volume 10.9H, Neutrophils (%) (Auto) 76H, Lymphocytes (%) (Auto) 15, Monocytes (%) (Auto) 9, Eosinophils (%) (Auto) 0, Basophils (%) (Auto) 0, Neutrophils # (Auto) 7.4, Lymphocytes # (Auto) 1.5, Monocytes # (Auto) 0.8, Eosinophils # (Auto) 0.0, Basophils # (Auto) 0.0, Sodium Level 141, Potassium Level 4.6, Chloride Level 101, Carbon Dioxide Level 30, Anion Gap 10, Blood Urea Nitrogen 23H, Creatinine 0.89, Estimat Glomerular Filtration Rate > 60, BUN /Creatinine Ratio 26, Glucose Level 130H, Calcium Level 7.9L, Phosphorus Level 2.2L, Magnesium Level 1.7L 09/26/18 03:45: Blood Gas Puncture Site LEFT RADIAL, Blood Gas Patient Temperature 97.9, Arterial Blood pH 7.40, Arterial Blood Partial Pressure CO2 55H, Arterial Blood Partial Pressure O2 80, Arterial Blood HCO3 33H, Arterial Blood Total CO2 35.1H , Arterial Blood Oxygen Saturation 97, Arterial Blood Base Excess 8.4H, Jeff Test POSITIVE, Blood Gas Ventilator Setting YES, Blood Gas Inspired Oxygen 50% Microbiology 09/24/18 Blood Culture - Preliminary, Resulted Positive; See Report 09/25/18 MRSA Screen - Final, Complete MRSA not isolated Laboratory Tests 09/24/18 17:05 09/25/18 03:05 09/26/18 03:30 Procedures NAME: LUIS MANUEL RETANA [facility] REC#: [id number] PT STATUS: ADM IN : 1960 PHYSICIAN: ART CASANOVA DO ADMIT DATE: 09/24/18/ICU Signed Date of Exam: 09/26/18 CHEST 1 VIEW, AP/PA ONLY INDICATION: Pneumonia. COMPARISON: 09/24/2018. FINDINGS: Single view of the chest demonstrates stable support lines. The heart is enlarged with central vascular congestion. There is increasing opacification in the right lung base. No pneumothorax is seen. IMPRESSION: 1. Stable support lines. 2. Cardiac enlargement with stable central vascular congestion. 3. Increasing opacity right lung base. Continued followup recommended. Dictated by: Dictated on workstation # [id number] Dict: 09/26/18623 Trans: 09/26/18832 Interpreted by: ALEX MADDOX Electronically signed by: ALEX MADDOX 09/26/1833 A/P: Assessment: Acute respiratory failure requiring intubation, appears multi-factorial ( reasons noted below) Pneumonia - management per Pulmonary and Medical services Acute on chronic diastolic CHF Acute renal failure likely d/t intravascular vol depletion - resolved S/P fall (09-24-18) - not reported as syncopal Right wrist facture s/p fall on 09-24-18 Cardiac cath of May 2017: angiographically mild CAD. LVEF 55-60%. LVEDP at the top limit of normal. No significant MR Echo of 09/25/18: LVEF 60-65%, PASP approx 25 mmHg Abdominal u/s of May 2017: the gallbladder is most likely filled with calculi - being followed by Dr. Narayan No evidence of AAA on abd ao screening scan of 04/18/18 Seg pressures of 04/08/18 did not show evidence of significant obstructive PAD COPD Fam h/o early CAD (father to [place] in his early 50s) Chronic tobacco use Hypertension Bipolar disorder Chronic mild, intermittent leg swelling H/O chronic impaired (somewhat slurred) speech Plan: Acute on chronic respiratory failure which is multi-factorial as noted above Acute on chronic diastolic CHF - tx with diuretics as tolerated Pneumonia - management per Medical and Pulmonary services Acute renal failure - improving with IVF hydration Monitor lab closely Physician Assessment Physician Assessment Intubated, sedated, on mech vent Lungs: fair to good air entry, diminished at the bases Cor: reg Ext: no c/c. Mild edema A&R * As documented in our note above that I updated (italics) * Remains critically ill * Continue to monitor closely MENG PACHECO [employer] Sep 26, 2018 09:13 ERIN HUTCHINSON MD [facility] Sep 26, 2018 14:24
[2018-09-26] MEDS ORDERED: VANCOMYCIN INJECTION 2,250 MG in NS IV 500 ML 500 ML IV NR (10:00)
[2018-09-26] MEDS ORDERED: VANCOMYCIN 1,750 MG/NS 500 ML IVPB IV SCH ×2 (22:00)
[2018-09-27] VITALS (34 sets, daily range): BP systolic 118–170; BP diastolic 67–94
[2018-09-27] MEDS: DEXMEDETOMIDINE INJECTION 200 MCG in NS (IVPB) 50 ML IV SCH ×6 (00:15→12:43)
[2018-09-27] MEDS: PROPOFOL DRIP (ICU) 100 ML IV SCH ×5 (00:43→21:59)
[2018-09-27] MEDS: RT-ALBUTEROL/IPRATROPIUM 3 ML (DUONEB) VIAL INH SCH ×6 (02:27→21:59)
[2018-09-27 03:41] LABS: ABG BASE EXCESS 7.8 MMOL/L (-2.5-2.5); ABG OXYGEN SATURATION 95 % (94-100); ABG PCO2 56 MMHG (35-45); ABG PH 7.39 (7.37-7.43); ABG PO2 76 MMHG (79-93); ABG TCO2 34.6 MMOL/L (21.0-31.0)
[2018-09-27 03:42] LABS: BASOPHILS % (AUTO) 0 % (0-10); EOSINOPHILS % (AUTO) 0 % (0-10); HEMATOCRIT 46 % (40-54); HEMOGLOBIN 14.6 G/DL (13.3-17.7); LYMPHOCYTES # (AUTO) 1.4 X 10^3 (1.0-4.0); LYMPHOCYTES % (AUTO) 18 % (12-44); MEAN CORPUSCULAR HEMOGLOBIN 29 PG (25-34); MEAN CORPUSCULAR HGB CONC 32 G/DL (32-36); MEAN CORPUSCULAR VOLUME 92 FL (80-99); MEAN PLATELET VOLUME 9.8 FL (7.4-10.4); MONOCYTES # (AUTO) 0.8 X 10^3 (0.0-1.0); MONOCYTES % (AUTO) 10 % (0-12); NEUTROPHILS # (AUTO) 5.6 X 10^3 (1.8-7.8); NEUTROPHILS % (AUTO) 72 % (42-75); PLATELET COUNT 132 10^3/uL (130-400); RED BLOOD COUNT 4.99 10^6/uL (4.35-5.85); WHITE BLOOD COUNT 7.8 10^3/uL (4.3-11.0)
[2018-09-27 03:48] LABS: ALLENS TEST POSTIVIE; INSPIRED O2 50% VENT; PATIENT TEMP 98.7; VENTILATOR YES
[2018-09-27 04:03] LABS: BUN/CREATININE RATIO 18; CALCIUM 7.6 MG/DL (8.5-10.1); CARBON DIOXIDE 30 MMOL/L (21-32); CHLORIDE 103 MMOL/L (98-107); CREATININE SERUM 0.91 MG/DL (0.60-1.30); GFR ESTIMATED > 60; GLUCOSE 85 MG/DL (70-105); MAGNESIUM 1.5 MG/DL (1.8-2.4); PHOSPHORUS 2.8 MG/DL (2.3-4.7); POTASSIUM 4.8 MMOL/L (3.6-5.0); SODIUM 141 MMOL/L (135-145)
[2018-09-27] MEDS: MAGNESIUM 1 GM/100 ML IVPB 100 ML IV SCH ×3 (04:28→05:25)
[2018-09-27] MEDS: POTASSIUM CL 10MEQ/50ML IVPB 50 ML IV SCH (05:25)
[2018-09-27] MEDS: PIPERACILLIN SODIUM/TAZOBACTAM 4.5 GM in NS (IVPB) 100 ML IV SCH ×3 (05:26→23:19)
[2018-09-27] MEDS: KCL 20 MEQ TAB (K-DUR) PO SCH (05:26)
--- NOTE | 2018-09-27 06:05 | Pulmonary Progress Note ---
Subjective Time Seen by a Provider: 06:09 Subjective/Events-last exam PT appears improved. Sepsis Event Evaluation Height, Weight, BMI Height: 5'7.00" Weight: 256lbs. 5.0oz. 116.276995pk; 38.1 BMI Method:Stated Focused Exam Lactate Level 09/24/18 18:45: Lactic Acid Level 1.52 Exam Exam Vital Signs Date Time Temp Pulse Resp B/P (MAP) Pulse Ox O2 Delivery O2 Flow Rate FiO2 09/27/18 05:29 Mechanical Ventilator 09/27/18 04:36 75 22 95 50 09/27/18 04:00 95 Mechanical Ventilator 50 09/27/18 03:39 98.7 09/27/18 02:28 73 22 95 50 09/27/18 01:00 73 09/27/18 00:43 Mechanical Ventilator 09/27/18 00:21 76 22 96 50 09/27/18 00:00 95 Mechanical Ventilator 50 09/26/18 23:39 98.2 09/26/18 23:00 78 17 159/84 (109) 96 Room Air 09/26/18 22:33 74 22 96 50 09/26/18 22:00 77 25 154/89 (110) 96 Room Air 09/26/18 21:00 76 21 155/80 (105) 95 Room Air 09/26/18 20:20 81 23 95 50 09/26/18 20:00 81 12 143/76 (98) 94 Room Air 09/26/18 20:00 95 Mechanical Ventilator 50 09/26/18 19:00 79 23 124/67 (86) 94 Room Air 09/26/18 19:00 79 09/26/18 18:36 90 22 96 50 09/26/18 18:30 97.5 72 22 130/72 95 Mechanical Ventilator 50.00 09/26/18 18:15 61 16 151/76 (101) 97 Room Air 09/26/18 18:00 71 23 155/84 (107) 95 Mechanical Ventilator 50.00 09/26/18 17:00 70 28 151/84 (106) 95 Mechanical Ventilator 50.00 09/26/18 16:40 70 22 95 50 09/26/18 16:00 97.0 09/26/18 16:00 95 Mechanical Ventilator 50 09/26/18 16:00 74 24 137/71 (93) 94 Mechanical Ventilator 50.00 12/7/18 15:00 68 15 130/71 (90) 95 Mechanical Ventilator 50.00 09/26/18 14:42 75 22 95 50 09/26/18 14:31 98.2 68 22 147/77 94 Mechanical Ventilator 50.00 09/26/18 14:00 66 44 147/77 (100) 94 Mechanical Ventilator 50.00 09/26/18 13:52 98.2 09/26/18 13:00 67 11 116/70 (85) 96 Mechanical Ventilator 50.00 09/26/18 13:00 67 09/26/18 12:00 95 Mechanical Ventilator 50 09/26/18 12:00 69 17 128/73 (91) 94 Mechanical Ventilator 50.00 09/26/18 12:00 68 22 96 50 09/26/18 11:00 70 23 133/78 (96) 94 Mechanical Ventilator 50.00 09/26/18 10:01 97.2 69 22 124/73 94 Mechanical Ventilator 50.00 09/26/18 10:00 69 14 124/73 (90) 94 Mechanical Ventilator 50.00 09/26/18 09:41 65 22 96 50 09/26/18 09:03 96.2 09/26/18 09:00 101 20 134/67 (89) 92 Mechanical Ventilator 50.00 09/26/18 08:45 95 Mechanical Ventilator 50 09/26/18 08:27 67 22 95 50 09/26/18 08:00 111 14 133/85 (101) Mechanical Ventilator 50.00 09/26/18 07:00 67 09/26/18 07:00 115 20 169/73 (105) 97 Mechanical Ventilator 50.00 09/26/18 06:25 66 22 95 50 09/26/18 06:00 68 22 132/74 (93) 95 Mechanical Ventilator 50.00 I & O 09/27/18 07:00 Intake Total 3277.5 ml Output Total 4600 ml Balance -1322.5 ml Height & Weight Height: 5'7.00" Weight: 256lbs. 5.0oz. 116.417091xp; 38.1 BMI Method:Stated General Appearance: No Apparent Distress, Other (Patient on ventilator) HEENT: Normal ENT Inspection Neck: Normal Inspection Respiratory: Other (Patient on vent) Cardiovascular: Regular Rate, Rhythm Capillary Refill: Less Than 3 Seconds Gastrointestinal: non tender, soft Extremity: Pedal Edema Skin: Normal Color, Warm/Dry Results Lab Laboratory Tests 09/26/18 03:30 09/27/18 03:20 Assessment/Plan Assessment/Plan Acute on chronic respiratory failure -Continue ventilator therapy -D/C propofol and attempt vent weaning -ABG improved this AM --Pneumonia with MRSA bacteremia. In sputum H influenza and strep -Doubt emphyema - leukocytosis improving. never had fever -Sputum production has improved - IVF KVO -Continue Zosyn continue Vanco -Ruiz cultures pending -Monitor close Hypotension- improved - lasix -Levophed gtt is now off Acute renal failure -resolved KEYONA EVANS DO Sep 27, 2018 06:05
[2018-09-27] MEDS ORDERED: FUROSEMIDE 40 MG/4 ML INJ (LASIX) IVP ONE (06:15)
[2018-09-27] MEDS: PANTOPRAZOLE 40 MG (PROTONIX) VIAL IV SCH (08:00)
--- NOTE | 2018-09-27 08:35 | CONSULTATION REPORT ---
DATE OF SERVICE: INPATIENT CONSULTATION REASON FOR CONSULTATION: Right wrist fracture. SERVICE:s Orthopedic surgery. HISTORY OF PRESENT ILLNESS: This is a 58-year-old disabled male, who resides in a local [facility], sustained a fall two days ago and then was admitted to the ICU with increasing respiratory distress, shortness of breath and arm pain, swelling and deformity of the right upper extremity. X-rays revealed a fracture. He was placed in a volar splint. He was admitted for inpatient treatment. He is currently intubated and on a ventilator and unable to verbally communicate. He has a very complex history with COPD and asthma and continues to smoke; history of the current wrist injury is difficult, however, due to his inability to verbally communicate. PAST MEDICAL HISTORY: Includes history of cocaine use. He is hep C positive ____ COPD, which is quite severe and shortness of breath and coughing as well. CURRENT MEDICATIONS: Include acetaminophen, aripiprazole, ____, ____, steroid inhaler, escitalopram, fluticasone with salmeterol, furosemide, ipratropium with albuterol, lisinopril, metoprolol, multivitamin and pantoprazole. ALLERGIES: He has no known medication allergies. PHYSICAL EXAMINATION: EXTREMITIES: Examination today shows swelling throughout the wrist and hand with the initial volar splint removed. No significant gross deformity or angulation was noted, but there was very dense volar ecchymosis noted throughout the wrist and volar part of the forearm, a tiny, perhaps 2 mm fracture blister was noted but no skin laceration or significant skin damage or break was otherwise noted. He was able to wiggle his fingers on command yesterday and did verbalize with nod of a head. The sensation was grossly intact to light touch throughout the right upper extremity. REVIEW OF X-RAYS: Three views of the right wrist from the [facility] from 09/24/2018 showed a comminuted moderately displaced distal radius fracture. This does demonstrate intra-articular extension. There is also a comminuted fracture of the distal ulna as well. Overall, alignment is very good and joint surface alignment on all 3 views is fair. IMPRESSION AND PLAN: Closed displaced right distal radius fracture ____ ____ today from his volar splint to two-sided Ortho-Glass splint. This was well molded and the patient apparently tolerated the procedure very well and Dr. Cadet is informed of the consult and the plan and was present for radiographic examination and discussion and we will plan to maintain the splint until the patient is able to present for outpatient followup at which point we would plan for new x-rays to ascertain whether or not the ____ is acceptable for closed treatment or if discussion would need to include the option of surgical stabilization. Job ID: [id number] DocumentID: [id number] Dictated Date: 09/26/2018 14:20:00 Alcohol Law Enforcement Agent Date: 09/26/2018 14:56:09 Dictated By: THA HART
--- NOTE | 2018-09-27 08:44 | Diagnostic Imaging Report ---
EXAMINATION: Portable erect AP chest at 03:26. INDICATION: Respiratory distress. FINDINGS: The appearance of the chest has worsened slightly since the prior exam of 09/26/2018 as there has been a small increase in the atelectasis/infiltrate and fluid involving the right lung base. The right upper lung and left lung remain generally clear. The cardiomegaly noted previously is again evident and no different. The central pulmonary vascularity does not seem quite as prominent however. The mediastinum is not widened. The osseous structures are intact. The supportive tubes and lines seem stable in position. IMPRESSION: There are mixed results. There does appear to be less pulmonary congestion but there has been a slight increase in the atelectasis/infiltrate and fluid involving the right lung base. A followup study would be recommended for continued evaluation. Dictated by: Dictated on workstation # [id number]
--- NOTE | 2018-09-27 10:02 | Progress Note-Hospitalist ---
Subjective HPI/CC On Admission Date Seen by Provider: Sep 27, 2018 Time Seen by Provider: 09:15 Subjective/Events-last exam Pt on vent No issues today or last night Prognosis guarded Focused Exam Lactate Level 09/24/18 18:45: Lactic Acid Level 1.52 Objective Exam Vital Signs Vital Signs Date Time Temp Pulse Resp B/P (MAP) Pulse Ox O2 Delivery O2 Flow Rate FiO2 09/27/18 15:00 78 23 157/80 (105) 94 Mechanical Ventilator 45.00 09/27/18 14:24 50 09/27/18 08:16 97.6 Capillary Refill : Less Than 3 SecondsLess Than 3 Seconds General Appearance: No Apparent Distress, WD/WN, Chronically ill, Obese Respiratory: Chest Non Tender, Lungs Clear, Normal Breath Sounds, No Accessory Muscle Use, No Respiratory Distress, Other (on vent) Cardiovascular: Regular Rate, Rhythm, No Edema, No Gallop, No JVD, No Murmur, Normal Peripheral Pulses Results/Procedures Lab Laboratory Tests 09/27/18 03:20 Patient resulted labs reviewed. Assessment/Plan Assessment and Plan Assess & Plan/Chief Complaint Assessment: [facility] Pneumonia Plan: Maintain vent Appreciate Dr Redmond Diagnosis/Problems Diagnosis/Problems (1) Hypercapnic respiratory failure Status: Acute Qualifiers: Chronicity: acute Qualified Codes: J96.02 - Acute respiratory failure with hypercapnia (2) Right middle lobe pneumonia Status: Acute Qualifiers: Pneumonia type: due to unspecified organism Qualified Codes: J18.1 - Lobar pneumonia, unspecified organism Clinical Quality Measures DVT/VTE Risk/Contraindication: Risk Factor Score Per Nursin RFS Level Per Nursing on Admit: 4+=Very High CHRIS EMERSON DO Sep 27, 2018 10:02
[2018-09-27] MEDS ORDERED: PROPOFOL DRIP (ICU) 100 ML IV ONE (10:07)
[2018-09-27] MEDS: fentaNYL INJECTION 100 MCG/2 ML AMP IV PRN ×6 (10:39→23:20)
[2018-09-27] MEDS: NS IV 1000 ML 1,000 ML IV SCH (11:16)
[2018-09-27] MEDS: CHLORHEXIDINE 0.12% SOLN 15 ML (PERIDEX) UDC PO SCH ×2 (11:17→23:20)
[2018-09-27] MEDS ORDERED: VANCOMYCIN 2000 MG/NS 500 ML IVPB IV NR ×2 (11:42)
[2018-09-27] MEDS ORDERED: VANCOMYCIN INJECTION 0.1 MG in NS (IVPB) 250 ML IV SCH (11:45)
--- NOTE | 2018-09-27 14:14 | Progress Note-Cardiology ---
Cardiology SOAP Progress Note Subjective: Failed weaning from vent this am Not able to provide any history (on vent) Objective: I&O/Vital Signs 09/27/18 09/27/18 09/27/18 09/27/18 02:28 03:00 03:39 04:00 Temp 98.7 Pulse 73 75 Resp 22 21 B/P (MAP) 158/83 (108) Pulse Ox 95 95 95 O2 Delivery Room Air Mechanical Ventilator FiO2 50 50 09/27/18 09/27/18 09/27/18 09/27/18 04:00 04:36 05:00 05:29 Pulse 76 75 74 Resp 28 22 15 B/P (MAP) 146/80 (102) 164/84 (110) Pulse Ox 95 95 96 O2 Delivery Room Air Room Air Mechanical Ventilator FiO2 50 09/27/18 09/27/18 09/27/18 09/27/18 06:00 06:32 07:00 07:00 Pulse 71 71 78 80 Resp 15 22 15 B/P (MAP) 159/83 (108) 138/71 (93) Pulse Ox 96 93 92 O2 Delivery Room Air Room Air FiO2 40 09/27/18 09/27/18 09/27/18 09/27/18 08:00 08:05 08:16 08:47 Temp 97.6 Pulse 81 82 Resp 17 23 B/P (MAP) 136/70 (92) Pulse Ox 91 91 92 O2 Delivery Room Air Mechanical Ventilator Mechanical Ventilator O2 Flow Rate 40.00 FiO2 40 40 09/27/18 09/27/18 09/27/18 09/27/18 09:00 10:00 10:12 10:13 Pulse 80 79 77 80 Resp 18 17 22 23 B/P (MAP) 135/72 (93) 118/67 (84) 118/67 Pulse Ox 92 90 90 90 O2 Delivery Mechanical Ventilator Mechanical Ventilator O2 Flow Rate 40.00 40.00 FiO2 40 09/27/18 09/27/18 09/27/18 09/27/18 10:55 11:00 11:17 11:38 Pulse 81 Resp 21 B/P (MAP) 131/73 (92) 134/77 Pulse Ox 90 93 O2 Delivery Mechanical Ventilator Mechanical Ventilator Mechanical Ventilator O2 Flow Rate 45.00 45.00 FiO2 50 09/27/18 09/27/18 12:00 13:14 Pulse 78 75 Resp 21 23 B/P (MAP) 137/78 (97) Pulse Ox 93 96 O2 Delivery Mechanical Ventilator O2 Flow Rate 45.00 FiO2 50 09/27/18 00:00 Intake Total 2104 ml Output Total 2775 ml Balance -671 ml Weight (Pounds): 252 Weight (Ounces): 5.0 Weight (Calculated Kilograms): 114.048562 Constitutional: well-developed, well-nourished Respiratory: No accessory muscle use, No respiratory distress; chest expansion is symmetric, chest is bilaterally symmetric, rhonchi (scattered), other ( intubated - fair air entry ) Cardiovascular: regular rate-rhythm; No JVD; S1 and S2, systolic murmur Gastrointestional: round, audible bowel sounds Extremities: other (mild bilat LE edema) Neurologic/Psychiatric: other (intubated and sedated) Skin: normal color, warm/dry Results/Procedures: Labs Laboratory Tests 09/26/18 14:25: Glucometer 88 09/26/18 18:25: Glucometer 81 09/26/18 23:37: Glucometer 89 09/27/18 03:20: White Blood Count 7.8, Red Blood Count 4.99, Hemoglobin 14.6, Hematocrit 46, Mean Corpuscular Volume 92, Mean Corpuscular Hemoglobin 29, Mean Corpuscular Hemoglobin Concent 32, Red Cell Distribution Width 17.0H, Platelet Count 132, Mean Platelet Volume 9.8, Neutrophils (%) (Auto) 72, Lymphocytes (%) (Auto) 18, Monocytes (%) (Auto) 10, Eosinophils (%) (Auto) 0, Basophils (%) (Auto) 0, Neutrophils # (Auto) 5.6, Lymphocytes # (Auto) 1.4, Monocytes # (Auto) 0.8, Eosinophils # (Auto) 0.0, Basophils # (Auto) 0.0, Sodium Level 141, Potassium Level 4.8, Chloride Level 103, Carbon Dioxide Level 30, Anion Gap 8, Blood Urea Nitrogen 16, Creatinine 0.91, Estimat Glomerular Filtration Rate > 60, BUN/ Creatinine Ratio 18, Glucose Level 85, Calcium Level 7.6L, Phosphorus Level 2.8 , Magnesium Level 1.5L, B-Type Natriuretic Peptide 220.9H, Triglycerides Level 178H 09/27/18 03:35: Blood Gas Puncture Site LEFT RADIAL, Blood Gas Patient Temperature 98.7, Arterial Blood pH 7.39, Arterial Blood Partial Pressure CO2 56H, Arterial Blood Partial Pressure O2 76L, Arterial Blood HCO3 33H, Arterial Blood Total CO2 34.6H , Arterial Blood Oxygen Saturation 95, Arterial Blood Base Excess 7.8H, Jeff Test POSTIVIE, Blood Gas Ventilator Setting YES, Blood Gas Inspired Oxygen 50% VENT 09/27/18 12:25: Glucometer 94 Microbiology 09/24/18 Blood Culture - Preliminary, Resulted No growth 09/25/18 MRSA Screen - Final, Complete MRSA not isolated Laboratory Tests 09/26/18 03:30 09/27/18 03:20 A/P: Assessment: Acute respiratory failure requiring intubation, appears multi-factorial ( reasons noted below) Pneumonia - management per Pulmonary and Medical services Acute on chronic diastolic CHF Acute renal failure likely d/t intravascular vol depletion - resolved S/P fall (09-24-18) - not reported as syncopal Right wrist facture s/p fall on 09-24-18 Cardiac cath of May 2017: angiographically mild CAD. LVEF 55-60%. LVEDP at the top limit of normal. No significant MR Echo of 09/25/18: LVEF 60-65%, PASP approx 25 mmHg Abdominal u/s of May 2017: the gallbladder is most likely filled with calculi - being followed by Dr. Narayan No evidence of AAA on abd ao screening scan of 04/18/18 Seg pressures of 04/08/18 did not show evidence of significant obstructive PAD COPD Fam h/o early CAD (father to [place] in his early 50s) Chronic tobacco use Hypertension Bipolar disorder Chronic mild, intermittent leg swelling H/O chronic impaired (somewhat slurred) speech Plan: Acute on chronic respiratory failure which is multi-factorial as noted above Acute on chronic diastolic CHF - tx with diuretics as tolerated Pneumonia - management per Medical and Pulmonary services Monitor lab closely ERIN HUTCHINSON MD FACP F[facility] Sep 27, 2018 14:14
[2018-09-27] MEDS: DEXMEDETOMIDINE INJECTION 1,000 MCG in NS (IVPB) 250 ML IV SCH (15:39)
[2018-09-27] MEDS: VANCOMYCIN 1 GM/NS 250 ML IVPB IV SCH ×2 (23:19)
[2018-09-28] VITALS (27 sets, daily range): BP systolic 105–164; BP diastolic 51–91
[2018-09-28] MEDS: fentaNYL INJECTION 100 MCG/2 ML AMP IV PRN ×4 (00:29→09:22)
[2018-09-28] MEDS: PROPOFOL DRIP (ICU) 100 ML IV SCH (01:31)
[2018-09-28] MEDS: RT-ALBUTEROL/IPRATROPIUM 3 ML (DUONEB) VIAL INH SCH ×6 (01:45→22:38)
[2018-09-28] MEDS: DEXMEDETOMIDINE INJECTION 1,000 MCG in NS (IVPB) 250 ML IV SCH (03:23)
[2018-09-28 04:08] LABS: BASOPHILS % (AUTO) 0 % (0-10); EOSINOPHILS # (AUTO) 0.1 10^3/uL (0.0-0.3); EOSINOPHILS % (AUTO) 1 % (0-10); HEMATOCRIT 47 % (40-54); HEMOGLOBIN 15.1 G/DL (13.3-17.7); LYMPHOCYTES # (AUTO) 1.4 X 10^3 (1.0-4.0); LYMPHOCYTES % (AUTO) 21 % (12-44); MEAN CORPUSCULAR HEMOGLOBIN 29 PG (25-34); MEAN CORPUSCULAR HGB CONC 32 G/DL (32-36); MEAN CORPUSCULAR VOLUME 90 FL (80-99); MEAN PLATELET VOLUME 9.6 FL (7.4-10.4); MONOCYTES # (AUTO) 0.9 X 10^3 (0.0-1.0); MONOCYTES % (AUTO) 14 % (0-12); NEUTROPHILS # (AUTO) 4.2 X 10^3 (1.8-7.8); NEUTROPHILS % (AUTO) 64 % (42-75); PLATELET COUNT 127 10^3/uL (130-400); RED BLOOD COUNT 5.26 10^6/uL (4.35-5.85); RED CELL DISTRIBUTION WIDTH 16.3 % (10.0-14.5); WHITE BLOOD COUNT 6.5 10^3/uL (4.3-11.0)
[2018-09-28 04:39] LABS: BUN/CREATININE RATIO 15; CALCIUM 8.5 MG/DL (8.5-10.1); CARBON DIOXIDE 27 MMOL/L (21-32); CHLORIDE 100 MMOL/L (98-107); CREATININE SERUM 0.93 MG/DL (0.60-1.30); GFR ESTIMATED > 60; GLUCOSE 88 MG/DL (70-105); MAGNESIUM 1.9 MG/DL (1.8-2.4); PHOSPHORUS 3.7 MG/DL (2.3-4.7); POTASSIUM 4.8 MMOL/L (3.6-5.0); SODIUM 138 MMOL/L (135-145)
[2018-09-28 05:07] LABS: ABG BASE EXCESS 6.4 MMOL/L (-2.5-2.5); ABG OXYGEN SATURATION 97 % (94-100); ABG PCO2 52 MMHG (35-45); ABG PH 7.39 (7.37-7.43); ABG PO2 81 MMHG (79-93); ABG TCO2 32.9 MMOL/L (21.0-31.0); ALLENS TEST YES-POS
[2018-09-28 05:08] LABS: PATIENT TEMP 98.3; VENTILATOR YES
--- NOTE | 2018-09-28 05:24 | Pulmonary Progress Note ---
Subjective Time Seen by a Provider: 05:25 Subjective/Events-last exam Pt is doing well with weaning Sepsis Event Evaluation Height, Weight, BMI Height: 5'7.00" Weight: 252lbs. 5.0oz. 114.779817dg; 38.1 BMI Method:Stated Exam Exam Vital Signs Date Time Temp Pulse Resp B/P (MAP) Pulse Ox O2 Delivery O2 Flow Rate FiO2 09/28/18 05:00 108 18 160/83 (108) 97 Mechanical Ventilator 50.00 09/28/18 04:17 74 15 95 55 09/28/18 04:11 77 18 95 55 09/28/18 04:00 75 24 155/86 (109) 94 Mechanical Ventilator 50.00 09/28/18 03:59 73 22 94 50 09/28/18 03:00 77 22 159/85 (109) 95 Mechanical Ventilator 50.00 09/28/18 02:00 74 21 151/77 (101) 95 Mechanical Ventilator 50.00 09/28/18 01:45 75 22 95 50 09/28/18 01:31 78 09/28/18 01:00 74 22 149/80 (103) 94 Mechanical Ventilator 50.00 09/28/18 01:00 74 09/28/18 00:00 74 22 164/83 (110) 96 Mechanical Ventilator 50.00 09/27/18 23:20 71 09/27/18 23:00 77 31 164/83 (110) 95 Mechanical Ventilator 50.00 09/27/18 22:00 74 29 155/80 (105) 95 Mechanical Ventilator 50.00 09/27/18 21:59 74 22 95 50 09/27/18 21:59 75 09/27/18 21:00 73 21 166/86 (112) 95 Mechanical Ventilator 50.00 09/27/18 20:47 98.9 09/27/18 20:00 72 23 165/86 (112) 95 Mechanical Ventilator 50.00 09/27/18 19:58 70 22 95 50 09/27/18 19:00 71 28 158/77 (104) 95 Mechanical Ventilator 50.00 09/27/18 18:00 70 31 167/84 (111) 95 Mechanical Ventilator 50.00 09/27/18 17:00 73 57 149/79 (102) 94 Mechanical Ventilator 50.00 09/27/18 16:15 98.9 Mechanical Ventilator 50.00 09/27/18 16:11 93 Mechanical Ventilator 50 09/27/18 16:02 74 22 94 50 09/27/18 16:00 74 22 151/78 (102) 94 Mechanical Ventilator 45.00 09/27/18 15:00 78 23 157/80 (105) 94 Mechanical Ventilator 45.00 09/27/18 14:58 78 22 149/78 94 09/27/18 14:24 73 22 95 50 09/27/18 14:00 73 21 170/94 (119) 95 Mechanical Ventilator 45.00 09/27/18 13:14 75 23 96 50 09/27/18 13:00 77 19 139/82 (101) 94 Mechanical Ventilator 45.00 09/27/18 13:00 77 09/27/18 12:00 78 21 137/78 (97) 93 Mechanical Ventilator 45.00 09/27/18 11:38 93 Mechanical Ventilator 50 09/27/18 11:17 134/77 09/27/18 11:00 81 21 131/73 (92) 90 Mechanical Ventilator 45.00 09/27/18 10:55 Mechanical Ventilator 45.00 09/27/18 10:13 80 23 90 40 09/27/18 10:12 77 22 118/67 90 09/27/18 10:00 79 17 118/67 (84) 90 Mechanical Ventilator 40.00 09/27/18 09:00 80 18 135/72 (93) 92 Mechanical Ventilator 40.00 09/27/18 08:47 82 23 92 40 09/27/18 08:16 97.6 Mechanical Ventilator 40.00 09/27/18 08:05 91 Mechanical Ventilator 40 09/27/18 08:00 81 17 136/70 (92) 91 Room Air 09/27/18 07:00 80 09/27/18 07:00 78 15 138/71 (93) 92 Room Air 09/27/18 06:32 71 22 93 40 09/27/18 06:00 71 15 159/83 (108) 96 Room Air 09/27/18 05:29 Mechanical Ventilator I & O 09/28/18 07:00 Intake Total 1822 ml Output Total 6900 ml Balance -5078 ml Height & Weight Height: 5'7.00" Weight: 252lbs. 5.0oz. 114.858472ua; 38.1 BMI Method:Stated General Appearance: No Apparent Distress, WD/WN, Chronically ill, Obese, Other (awake on vent) HEENT: Normal ENT Inspection Neck: Normal Inspection Respiratory: Chest Non Tender, Lungs Clear, Normal Breath Sounds, No Accessory Muscle Use, No Respiratory Distress, Other (on vent) Cardiovascular: Regular Rate, Rhythm, No Edema, No Gallop, No JVD, No Murmur, Normal Peripheral Pulses Capillary Refill: Less Than 3 Seconds Gastrointestinal: non tender, soft Extremity: Pedal Edema Neurologic/Psychiatric: Alert Skin: Normal Color, Warm/Dry Results Lab Laboratory Tests 09/27/18 03:20 09/28/18 04:00 Assessment/Plan Assessment/Plan Acute on chronic respiratory failure -Continue ventilator therapy -Pt is currently off propofol and on BiPAP mode 10/. ABG 30min after vent change looks good -Will Extubate patient -ABG improved this AM --Pneumonia with MRSA bacteremia. In sputum H influenza and strep -Doubt emphyema - leukocytosis improving. never had fever -Sputum production has improved - IVF KVO -Continue Zosyn continue Vanco -Ruiz cultures pending -Monitor close Hypotension- improved - lasix -Levophed gtt is now off Acute renal failure -resolved KEYONA EVANS DO Sep 28, 2018 05:24
[2018-09-28] MEDS ORDERED: FUROSEMIDE 40 MG/4 ML INJ (LASIX) IVP SCH (05:30)
[2018-09-28] MEDS: VANCOMYCIN 1 GM/NS 250 ML IVPB IV SCH ×2 (06:25)
[2018-09-28] MEDS: PIPERACILLIN SODIUM/TAZOBACTAM 4.5 GM in NS (IVPB) 100 ML IV SCH ×3 (06:25→22:31)
[2018-09-28] MEDS: POTASSIUM CL 10MEQ/50ML IVPB 50 ML IV SCH (06:26)
[2018-09-28] MEDS: MAGNESIUM 1 GM/100 ML IVPB 100 ML IV SCH (06:26)
[2018-09-28] MEDS: KCL 20 MEQ TAB (K-DUR) PO SCH (06:26)
[2018-09-28] MEDS ORDERED: TROUGH ORDER-PHARMACY XX NR ×3 (09:00→20:00)
[2018-09-28] MEDS: CHLORHEXIDINE 0.12% SOLN 15 ML (PERIDEX) UDC PO SCH ×2 (09:17→20:59)
[2018-09-28] MEDS: PANTOPRAZOLE 40 MG (PROTONIX) VIAL IV SCH (09:23)
--- NOTE | 2018-09-28 10:46 | Progress Note-Cardiology ---
Cardiology SOAP Progress Note Subjective: Denies cp or palp Notes soreness of throat Notes some shortness of breath Has gen weakness and malaise Objective: I&O/Vital Signs 09/27/18 09/27/18 09/28/18 09/28/18 23:00 23:20 00:00 00:00 Temp 98.3 Pulse 77 71 Resp 31 B/P (MAP) 164/83 (110) Pulse Ox 95 95 O2 Delivery Mechanical Ventilator Mechanical Ventilator O2 Flow Rate 50.00 FiO2 50 09/28/18 09/28/18 09/28/18 09/28/18 00:00 01:00 01:00 01:31 Pulse 74 74 74 78 Resp 22 22 B/P (MAP) 164/83 (110) 149/80 (103) Pulse Ox 96 94 O2 Delivery Mechanical Ventilator Mechanical Ventilator O2 Flow Rate 50.00 50.00 09/28/18 09/28/18 09/28/18 09/28/18 01:45 02:00 03:00 03:59 Pulse 75 74 77 73 Resp 22 21 22 22 B/P (MAP) 151/77 (101) 159/85 (109) Pulse Ox 95 95 95 94 O2 Delivery Mechanical Ventilator Mechanical Ventilator O2 Flow Rate 50.00 50.00 FiO2 50 50 09/28/18 09/28/18 09/28/18 09/28/18 04:00 04:00 04:00 04:11 Temp 98.4 Pulse 75 77 Resp 24 18 B/P (MAP) 155/86 (109) Pulse Ox 94 95 95 O2 Delivery Mechanical Ventilator Mechanical Ventilator O2 Flow Rate 50.00 FiO2 50 55 09/28/18 09/28/18 09/28/18 09/28/18 04:17 05:00 05:17 05:25 Pulse 74 108 74 Resp 15 18 23 B/P (MAP) 160/83 (108) Pulse Ox 95 97 97 90 O2 Delivery Mechanical Ventilator Nasal Cannula O2 Flow Rate 50.00 6.00 FiO2 55 55 09/28/18 09/28/18 09/28/18 09/28/18 06:00 07:00 07:00 08:00 Pulse 78 73 73 Resp 32 15 B/P (MAP) 157/85 (109) 136/72 (93) Pulse Ox 92 93 92 O2 Delivery Nasal Cannula Nasal Cannula Nasal Cannula O2 Flow Rate 5.00 5.00 5.00 09/28/18 09:04 Temp 96.9 Pulse 76 Resp 13 B/P (MAP) 116/61 (79) Pulse Ox 93 O2 Delivery Nasal Cannula O2 Flow Rate 5.00 09/28/18 00:00 Intake Total 672 ml Output Total 4800 ml Balance -4128 ml Weight (Pounds): 225 Weight (Ounces): 5.0 Weight (Calculated Kilograms): 102.035307 Constitutional: AAO x 3, well-developed, well-nourished Respiratory: No accessory muscle use, No respiratory distress; chest expansion is symmetric, chest is bilaterally symmetric, rhonchi (scattered), other (fair bilat air entry) Cardiovascular: regular rate-rhythm, S1 and S2, systolic murmur Gastrointestional: No tender; soft; No guarding; audible bowel sounds Extremities: other (mild bilat LE edema); No clubbing, No cyanosis Neurologic/Psychiatric: other (awake, oriented, able to move all limbs equally) Skin: normal color, warm/dry; No rash on exposed areas, No ulcerations on exposed areas Results/Procedures: Labs Laboratory Tests 09/27/18 12:25: Glucometer 94 09/27/18 18:44: Glucometer 77 09/28/18 04:00: White Blood Count 6.5, Red Blood Count 5.26, Hemoglobin 15.1, Hematocrit 47, Mean Corpuscular Volume 90, Mean Corpuscular Hemoglobin 29, Mean Corpuscular Hemoglobin Concent 32, Red Cell Distribution Width 16.3H, Platelet Count 127L, Mean Platelet Volume 9.6, Neutrophils (%) (Auto) 64, Lymphocytes (%) (Auto) 21, Monocytes (%) (Auto) 14H, Eosinophils (%) (Auto) 1, Basophils (%) (Auto) 0, Neutrophils # (Auto) 4.2, Lymphocytes # (Auto) 1.4, Monocytes # (Auto) 0.9, Eosinophils # (Auto) 0.1, Basophils # (Auto) 0.0, Sodium Level 138, Potassium Level 4.8, Chloride Level 100, Carbon Dioxide Level 27, Anion Gap 11, Blood Urea Nitrogen 14, Creatinine 0.93, Estimat Glomerular Filtration Rate > 60, BUN/ Creatinine Ratio 15, Glucose Level 88, Calcium Level 8.5, Phosphorus Level 3.7, Magnesium Level 1.9 09/28/18 04:51: Blood Gas Puncture Site L RAD, Blood Gas Patient Temperature 98.3, Arterial Blood pH 7.39, Arterial Blood Partial Pressure CO2 52H, Arterial Blood Partial Pressure O2 81, Arterial Blood HCO3 31H, Arterial Blood Total CO2 32.9H, Arterial Blood Oxygen Saturation 97, Arterial Blood Base Excess 6.4H, Jeff Test YES-POS, Blood Gas Ventilator Setting YES, Blood Gas Inspired Oxygen 55% 09/28/18 09:30: Vancomycin Level Trough 37.6*H Microbiology 09/24/18 Blood Culture - Preliminary, Resulted No growth 09/25/18 MRSA Screen - Final, Complete MRSA not isolated Laboratory Tests 09/27/18 03:20 09/28/18 04:00 A/P: Assessment: Acute respiratory failure, multi-factorial (reasons noted below). Now off vent Pneumonia - management per Pulmonary and Medical services Acute on chronic diastolic CHF Acute renal failure likely d/t intravascular vol depletion - resolved S/P fall (09-24-18) - not reported as syncopal Right wrist facture s/p fall on 09-24-18 Cardiac cath of May 2017: angiographically mild CAD. LVEF 55-60%. LVEDP at the top limit of normal. No significant MR Echo of 09/25/18: LVEF 60-65%, PASP approx 25 mmHg Abdominal u/s of May 2017: the gallbladder is most likely filled with calculi - being followed by Dr. Narayan No evidence of AAA on abd ao screening scan of 04/18/18 Seg pressures of 04/08/18 did not show evidence of significant obstructive PAD COPD Fam h/o early CAD (father to ID in his early 50s) Chronic tobacco use Hypertension Bipolar disorder Chronic mild, intermittent leg swelling H/o chronic impaired (somewhat slurred) speech Plan: Complex management due to multisystem involvement (pulmonary, renal, cardiac) Continue current regimen I spoke with him and answered questions Monitor lab closely ERIN HUTCHINSON MD FACP [facility] Sep 28, 2018 10:45
--- NOTE | 2018-09-28 11:41 | Progress Note-Hospitalist ---
Subjective HPI/CC On Admission Date Seen by Provider: Sep 28, 2018 Time Seen by Provider: 10:45 Subjective/Events-last exam Patient doing well since extubated Reports right arm fracture pain On nonrebreather and nebulizer treatments currently Denies any other situation that needs to be addressed Review of Systems General: Fatigue Musculoskeletal: arm pain Objective Exam Vital Signs Vital Signs Date Time Temp Pulse Resp B/P (MAP) Pulse Ox O2 Delivery O2 Flow Rate FiO2 09/28/18 11:37 97.7 84 17 105/69 (81) 91 Nasal Cannula 5.00 09/28/18 05:17 55 Capillary Refill : Less Than 3 SecondsLess Than 3 Seconds General Appearance: No Apparent Distress, WD/WN, Chronically ill Respiratory: Chest Non Tender, No Accessory Muscle Use, No Respiratory Distress , Decreased Breath Sounds, Wheezing Cardiovascular: Regular Rate, Rhythm, No Edema, No Gallop, No JVD, No Murmur, Normal Peripheral Pulses Neurologic/Psychiatric: Alert, Oriented x3, No Motor/Sensory Deficits, Normal Mood/Affect Results/Procedures Lab Laboratory Tests 09/28/18 04:00 Patient resulted labs reviewed. Assessment/Plan Assessment and Plan Assess & Plan/Chief Complaint Assessment: VDRF s/p extubation today and doing well Pneumonia Plan: Lung disease management Appreciate Dr Redmond Diagnosis/Problems Diagnosis/Problems (1) Hypercapnic respiratory failure Status: Resolved Qualifiers: Chronicity: acute Qualified Codes: J96.02 - Acute respiratory failure with hypercapnia Resolution Date/Time: 09/28/18 @ 11:40 (2) Right middle lobe pneumonia Status: Acute Qualifiers: Pneumonia type: due to unspecified organism Qualified Codes: J18.1 - Lobar pneumonia, unspecified organism Clinical Quality Measures DVT/VTE Risk/Contraindication: Risk Factor Score Per Nursin RFS Level Per Nursing on Admit: 4+=Very High CHRIS EMERSON DO Sep 28, 2018 11:40
--- NOTE | 2018-09-28 14:23 | Diagnostic Imaging Report ---
INDICATION: Respiratory failure. COMPARISON: Comparison made with prior examination from 09/27/2018. FINDINGS: There is cardiomegaly. There is mild venous congestion. There is right basilar infiltrate and right pleural effusion. There is no pneumothorax. Mediastinum is unremarkable. Lines and tubes are in satisfactory position. IMPRESSION: 1. Persistent right basilar infiltrate and right pleural effusion. 2. Cardiomegaly and mild central pulmonary venous congestion. Dictated by: Dictated on workstation # [id number]
[2018-09-28] MEDS: NS IV 1000 ML 1,000 ML IV SCH (17:50)
[2018-09-29] VITALS (13 sets, daily range): BP systolic 125–172; BP diastolic 70–88
[2018-09-29] MEDS: fentaNYL INJECTION 100 MCG/2 ML AMP IV PRN (00:29)
[2018-09-29] MEDS: RT-ALBUTEROL/IPRATROPIUM 3 ML (DUONEB) VIAL INH SCH ×6 (03:13→22:27)
[2018-09-29 03:45] LABS: BASOPHILS % (AUTO) 0 % (0-10); EOSINOPHILS # (AUTO) 0.1 10^3/uL (0.0-0.3); EOSINOPHILS % (AUTO) 1 % (0-10); HEMATOCRIT 46 % (40-54); HEMOGLOBIN 14.9 G/DL (13.3-17.7); LYMPHOCYTES # (AUTO) 1.5 X 10^3 (1.0-4.0); LYMPHOCYTES % (AUTO) 22 % (12-44); MEAN CORPUSCULAR HEMOGLOBIN 29 PG (25-34); MEAN CORPUSCULAR HGB CONC 32 G/DL (32-36); MEAN CORPUSCULAR VOLUME 90 FL (80-99); MEAN PLATELET VOLUME 9.9 FL (7.4-10.4); MONOCYTES # (AUTO) 1.2 X 10^3 (0.0-1.0); MONOCYTES % (AUTO) 18 % (0-12); NEUTROPHILS # (AUTO) 4.1 X 10^3 (1.8-7.8); NEUTROPHILS % (AUTO) 59 % (42-75); PLATELET COUNT 135 10^3/uL (130-400); RED BLOOD COUNT 5.16 10^6/uL (4.35-5.85); RED CELL DISTRIBUTION WIDTH 16.8 % (10.0-14.5); WHITE BLOOD COUNT 6.9 10^3/uL (4.3-11.0)
[2018-09-29 04:05] LABS: BUN/CREATININE RATIO 14; CALCIUM 9.2 MG/DL (8.5-10.1); CARBON DIOXIDE 28 MMOL/L (21-32); CHLORIDE 103 MMOL/L (98-107); CREATININE SERUM 0.94 MG/DL (0.60-1.30); GFR ESTIMATED > 60; GLUCOSE 79 MG/DL (70-105); MAGNESIUM 1.7 MG/DL (1.8-2.4); PHOSPHORUS 3.5 MG/DL (2.3-4.7); POTASSIUM 4.4 MMOL/L (3.6-5.0); SODIUM 143 MMOL/L (135-145)
[2018-09-29] MEDS: POTASSIUM CL 10MEQ/50ML IVPB 50 ML IV SCH (04:27)
[2018-09-29] MEDS: MAGNESIUM 1 GM/100 ML IVPB 100 ML IV SCH ×3 (04:27→06:13)
[2018-09-29] MEDS: KCL 20 MEQ TAB (K-DUR) PO SCH ×2 (04:28→08:21)
[2018-09-29] MEDS: NS IV 1000 ML 1,000 ML IV SCH (04:34)
[2018-09-29] MEDS: PIPERACILLIN SODIUM/TAZOBACTAM 4.5 GM in NS (IVPB) 100 ML IV SCH (06:14)
--- NOTE | 2018-09-29 06:28 | Pulmonary Progress Note ---
Subjective Time Seen by a Provider: 06:58 Subjective/Events-last exam sedated on vent Sepsis Event Evaluation Height, Weight, BMI Height: 5'7.00" Weight: 225lbs. 5.0oz. 102.346901jn; 38.1 BMI Method:Stated Exam Exam Vital Signs Date Time Temp Pulse Resp B/P (MAP) Pulse Ox O2 Delivery O2 Flow Rate FiO2 09/29/18 06:00 99 22 152/79 (103) 91 Nasal Cannula 5.00 09/29/18 05:00 101 19 125/88 (100) 90 Nasal Cannula 5.00 09/29/18 04:00 111 30 147/76 (99) 89 Nasal Cannula 5.00 09/29/18 04:00 90 Nasal Cannula 5.00 09/29/18 03:13 90 Nasal Cannula 5.00 09/29/18 03:00 105 20 159/85 (109) 90 Nasal Cannula 5.00 09/29/18 02:00 98 17 139/76 (97) 90 Nasal Cannula 5.00 09/29/18 01:00 104 09/29/18 01:00 104 18 147/72 (97) 91 Nasal Cannula 5.00 09/29/18 00:00 79.6 09/29/18 00:00 91 Nasal Cannula 5.00 09/29/18 00:00 105 26 157/80 (105) 91 Nasal Cannula 5.00 09/28/18 23:00 106 24 143/63 (89) 91 Nasal Cannula 5.00 09/28/18 22:35 91 Nasal Cannula 5.00 09/28/18 22:00 96 23 127/64 (85) 93 Nasal Cannula 5.00 09/28/18 21:00 105 24 146/75 (98) 93 Nasal Cannula 5.00 09/28/18 20:00 92 Nasal Cannula 5.00 09/28/18 20:00 109 23 158/87 (110) 92 Nasal Cannula 5.00 09/28/18 20:00 98.0 09/28/18 19:21 94 Nasal Cannula 5.00 09/28/18 19:00 116 09/28/18 19:00 116 23 145/81 (102) 90 Nasal Cannula 5.00 09/28/18 18:22 97.9 114 22 115/86 (96) 90 Nasal Cannula 5.00 09/28/18 17:00 106 13 120/91 (101) 91 Nasal Cannula 5.00 09/28/18 16:00 90 Nasal Cannula 5.00 09/28/18 16:00 97.7 98 24 142/72 (95) 90 Nasal Cannula 5.00 09/28/18 15:00 95 16 118/62 (80) 90 Nasal Cannula 5.00 09/28/18 14:00 99 23 112/77 (89) 92 Nasal Cannula 5.00 09/28/18 13:00 90 19 130/58 (82) 94 Nasal Cannula 5.00 09/28/18 13:00 86 09/28/18 12:00 90 Nasal Cannula 5.00 09/28/18 12:00 80 19 114/66 (82) 95 Nasal Cannula 5.00 09/28/18 11:37 97.7 84 17 105/69 (81) 91 Nasal Cannula 5.00 09/28/18 10:53 92 Nasal Cannula 5.00 09/28/18 10:00 77 17 113/51 (71) 92 Nasal Cannula 5.00 09/28/18 09:04 96.9 76 13 116/61 (79) 93 Nasal Cannula 5.00 09/28/18 08:00 92 Nasal Cannula 5.00 09/28/18 08:00 75 9 120/67 (84) 94 Nasal Cannula 5.00 09/28/18 07:00 73 15 136/72 (93) 93 Nasal Cannula 5.00 09/28/18 07:00 73 I & O 09/29/18 07:00 Intake Total 2080 ml Output Total 5425 ml Balance -3345 ml Height & Weight Height: 5'7.00" Weight: 225lbs. 5.0oz. 102.835965ym; 38.1 BMI Method:Stated General Appearance: No Apparent Distress, WD/WN, Chronically ill HEENT: Normal ENT Inspection Neck: Normal Inspection Respiratory: Chest Non Tender, No Accessory Muscle Use, No Respiratory Distress , Decreased Breath Sounds, Wheezing Cardiovascular: Regular Rate, Rhythm, No Edema, No Gallop, No JVD, No Murmur, Normal Peripheral Pulses Capillary Refill: Less Than 3 Seconds Gastrointestinal: non tender, soft Extremity: Pedal Edema Neurologic/Psychiatric: Alert, Oriented x3, No Motor/Sensory Deficits, Normal Mood/Affect Skin: Normal Color, Warm/Dry Results Lab Laboratory Tests 09/28/18 04:00 09/29/18 03:35 Assessment/Plan Assessment/Plan Acute on chronic respiratory failure -Pt is doing well off of the ventilator Atelectasis with right pleural effusion - improving ( present on admission) -Continue Lasix --Pneumonia with MRSA bacteremia. In sputum H influenza and strep -Doubt emphyema - leukocytosis improving. never had fever -Sputum production has improved - IVF hep lock -Continue Zosyn continue Vanco -Monitor close Hypophos, hypomag, hypokalemia -replace Acute renal failure -resolved Right wrist fracture -will defer to Dr. Lacey regarding consult with ortho. Pt is doing better will transfer to 4th floor with PT/OT and continue to monitor close KEYONA EVANS DO Sep 29, 2018 06:28
--- NOTE | 2018-09-29 08:11 | Progress Note (SOAP) ---
Subjective Time Seen by a Provider: 08:06 Subjective/Events-last exam Patient improving. Patient breathing better. Patient voices no complaints. Patient to be transferred to medical floor today. Objective Exam Vital Signs Date Time Temp Pulse Resp B/P (MAP) Pulse Ox O2 Delivery O2 Flow Rate FiO2 09/29/18 07:09 94 Nasal Cannula 5.00 09/29/18 06:00 99 22 152/79 (103) 91 Nasal Cannula 5.00 09/29/18 05:00 101 19 125/88 (100) 90 Nasal Cannula 5.00 09/29/18 04:00 111 30 147/76 (99) 89 Nasal Cannula 5.00 09/29/18 04:00 90 Nasal Cannula 5.00 09/29/18 03:13 90 Nasal Cannula 5.00 09/29/18 03:00 105 20 159/85 (109) 90 Nasal Cannula 5.00 09/29/18 02:00 98 17 139/76 (97) 90 Nasal Cannula 5.00 09/29/18 01:00 104 09/29/18 01:00 104 18 147/72 (97) 91 Nasal Cannula 5.00 09/29/18 00:00 79.6 09/29/18 00:00 91 Nasal Cannula 5.00 09/29/18 00:00 105 26 157/80 (105) 91 Nasal Cannula 5.00 09/28/18 23:00 106 24 143/63 (89) 91 Nasal Cannula 5.00 09/28/18 22:35 91 Nasal Cannula 5.00 09/28/18 22:00 96 23 127/64 (85) 93 Nasal Cannula 5.00 09/28/18 21:00 105 24 146/75 (98) 93 Nasal Cannula 5.00 09/28/18 20:00 92 Nasal Cannula 5.00 09/28/18 20:00 109 23 158/87 (110) 92 Nasal Cannula 5.00 09/28/18 20:00 98.0 09/28/18 19:21 94 Nasal Cannula 5.00 09/28/18 19:00 116 09/28/18 19:00 116 23 145/81 (102) 90 Nasal Cannula 5.00 09/28/18 18:22 97.9 114 22 115/86 (96) 90 Nasal Cannula 5.00 09/28/18 17:00 106 13 120/91 (101) 91 Nasal Cannula 5.00 09/28/18 16:00 90 Nasal Cannula 5.00 09/28/18 16:00 97.7 98 24 142/72 (95) 90 Nasal Cannula 5.00 09/28/18 15:00 95 16 118/62 (80) 90 Nasal Cannula 5.00 09/28/18 14:00 99 23 112/77 (89) 92 Nasal Cannula 5.00 09/28/18 13:00 90 19 130/58 (82) 94 Nasal Cannula 5.00 09/28/18 13:00 86 09/28/18 12:00 90 Nasal Cannula 5.00 09/28/18 12:00 80 19 114/66 (82) 95 Nasal Cannula 5.00 09/28/18 11:37 97.7 84 17 105/69 (81) 91 Nasal Cannula 5.00 09/28/18 10:53 92 Nasal Cannula 5.00 09/28/18 10:00 77 17 113/51 (71) 92 Nasal Cannula 5.00 09/28/18 09:04 96.9 76 13 116/61 (79) 93 Nasal Cannula 5.00 I & O 09/29/18 07:00 Intake Total 3680 ml Output Total 6125 ml Balance -2445 ml Capillary Refill : Less Than 3 SecondsLess Than 3 Seconds General Appearance: No Apparent Distress, WD/WN HEENT: Normal ENT Inspection Neck: Full Range of Motion, Normal Inspection Respiratory: No Accessory Muscle Use, No Respiratory Distress, Decreased Breath Sounds Cardiovascular: Regular Rate, Rhythm, No Murmur Gastrointestinal: non tender, soft Results Lab Laboratory Tests 09/28/18 09:30: Vancomycin Level Trough 37.6*H 09/28/18 12:30: Vancomycin Level Trough 32.8*H 09/28/18 12:43: Glucometer 66L 09/28/18 18:27: Glucometer 101 09/28/18 20:40: Vancomycin Level Trough 20.7H 09/29/18 02:20: Glucometer 200H 09/29/18 03:35: White Blood Count 6.9, Red Blood Count 5.16, Hemoglobin 14.9, Hematocrit 46, Mean Corpuscular Volume 90, Mean Corpuscular Hemoglobin 29, Mean Corpuscular Hemoglobin Concent 32, Red Cell Distribution Width 16.8H, Platelet Count 135, Mean Platelet Volume 9.9, Neutrophils (%) (Auto) 59, Lymphocytes (%) (Auto) 22, Monocytes (%) (Auto) 18H, Eosinophils (%) (Auto) 1, Basophils (%) (Auto) 0, Neutrophils # (Auto) 4.1, Lymphocytes # (Auto) 1.5, Monocytes # (Auto) 1.2H, Eosinophils # (Auto) 0.1, Basophils # (Auto) 0.0, Sodium Level 143, Potassium Level 4.4, Chloride Level 103, Carbon Dioxide Level 28, Anion Gap 12, Blood Urea Nitrogen 13, Creatinine 0.94, Estimat Glomerular Filtration Rate > 60, BUN/ Creatinine Ratio 14, Glucose Level 79, Calcium Level 9.2, Phosphorus Level 3.5, Magnesium Level 1.7L, Triglycerides Level 123 Microbiology 09/24/18 Blood Culture - Final, Complete No growth 09/25/18 MRSA Screen - Final, Complete MRSA not isolated Assessment/Plan Assessment/Plan Assess & Plan/Chief Complaint Pneumonia. Acute and chronic respiratory failure. Renal insufficiency back to normal. Hypotension better going off Levophed. Pneumonia on x-ray looks worse than yesterday. Congestive heart failure. . 09/29/18. Pneumonia. Acute and chronic respiratory failure. MRSA. Sputum H influenza and strep. CHF. COPD. Hypertension. Bipolar Clinical Quality Measures Admission Status Admission Dx Acute and chronic respiratory failure. Pneumonia. Right sided pleural effusion. Hypotension. Acute renal failure. Fractured wrist. Tobacco usage. Hep C. COPD. Persistent smoking noncompliant DVT/VTE Risk/Contraindication: Risk Factor Score Per Nursin RFS Level Per Nursing on Admit: 4+=Very High ART CASANOVA DO Sep 29, 2018 08:11
[2018-09-29] MEDS: ASPIRIN E.C. 81 MG (ECOTRIN) TAB PO SCH (08:21)
[2018-09-29] MEDS: DIVALPROX SPRINKLE 125 MG (DEPAKOTE) CAP PO SCH ×3 (08:22→20:15)
[2018-09-29] MEDS: clonazePAM 0.5 MG (KlonoPIN) TAB PO SCH ×2 (08:22→20:15)
[2018-09-29] MEDS: PANTOPRAZOLE 40 MG (PROTONIX) TAB PO SCH (08:22)
[2018-09-29] MEDS: ARIPIPRAZOLE 10 MG (ABILIFY) TAB PO SCH (08:22)
--- NOTE | 2018-09-29 08:45 | Progress Note-Cardiology ---
Cardiology SOAP Progress Note Subjective: Feels SOB has improved. C/O occ cough. No c/o CP. C/O right wrist pain. Objective: I&O/Vital Signs 09/29/18 09/29/18 09/29/18 09/29/18 03:00 03:13 04:00 04:00 Pulse 105 111 Resp 20 30 B/P (MAP) 159/85 (109) 147/76 (99) Pulse Ox 90 90 90 89 O2 Delivery Nasal Cannula Nasal Cannula Nasal Cannula Nasal Cannula O2 Flow Rate 5.00 5.00 5.00 5.00 09/29/18 09/29/18 09/29/18 09/29/18 05:00 06:00 07:00 07:00 Pulse 101 99 103 99 Resp 19 22 20 B/P (MAP) 125/88 (100) 152/79 (103) 171/87 (115) Pulse Ox 90 91 92 O2 Delivery Nasal Cannula Nasal Cannula Nasal Cannula O2 Flow Rate 5.00 5.00 5.00 09/29/18 09/29/18 09/29/18 09/29/18 07:09 08:00 08:00 09:00 Temp 97.1 Pulse 107 96 Resp 24 18 B/P (MAP) 142/84 (103) 147/87 (107) Pulse Ox 94 90 90 91 O2 Delivery Nasal Cannula Nasal Cannula Nasal Cannula Nasal Cannula O2 Flow Rate 5.00 5.00 5.00 5.00 09/29/18 10:00 Temp 99.1 Pulse 90 Resp 22 B/P (MAP) 172/79 (110) Pulse Ox 92 O2 Delivery Nasal Cannula O2 Flow Rate 5.00 09/29/18 00:00 Intake Total 1050 ml Output Total 3900 ml Balance -2850 ml Weight (Pounds): 227 Weight (Ounces): 4.0 Weight (Calculated Kilograms): 103.897911 Constitutional: AAO x 3, well-developed, well-nourished Respiratory: No accessory muscle use, No respiratory distress; chest expansion is symmetric, chest is bilaterally symmetric, rhonchi (scattered), other (fair bilat air entry) Cardiovascular: regular rate-rhythm, S1 and S2, systolic murmur Gastrointestional: No tender; soft; No guarding; audible bowel sounds Extremities: other (mild bilat LE edema); No clubbing, No cyanosis; significant edema Neurologic/Psychiatric: other (awake, oriented, able to move all limbs equally) Skin: normal color, warm/dry; No rash on exposed areas, No ulcerations on exposed areas Results/Procedures: Labs Laboratory Tests 09/28/18 18:27: Glucometer 101 09/28/18 20:40: Vancomycin Level Trough 20.7H 09/29/18 02:20: Glucometer 200H 09/29/18 03:35: White Blood Count 6.9, Red Blood Count 5.16, Hemoglobin 14.9, Hematocrit 46, Mean Corpuscular Volume 90, Mean Corpuscular Hemoglobin 29, Mean Corpuscular Hemoglobin Concent 32, Red Cell Distribution Width 16.8H, Platelet Count 135, Mean Platelet Volume 9.9, Neutrophils (%) (Auto) 59, Lymphocytes (%) (Auto) 22, Monocytes (%) (Auto) 18H, Eosinophils (%) (Auto) 1, Basophils (%) (Auto) 0, Neutrophils # (Auto) 4.1, Lymphocytes # (Auto) 1.5, Monocytes # (Auto) 1.2H, Eosinophils # (Auto) 0.1, Basophils # (Auto) 0.0, Sodium Level 143, Potassium Level 4.4, Chloride Level 103, Carbon Dioxide Level 28, Anion Gap 12, Blood Urea Nitrogen 13, Creatinine 0.94, Estimat Glomerular Filtration Rate > 60, BUN/ Creatinine Ratio 14, Glucose Level 79, Calcium Level 9.2, Phosphorus Level 3.5, Magnesium Level 1.7L, Triglycerides Level 123 Microbiology 09/24/18 Blood Culture - Final, Complete No growth 09/25/18 MRSA Screen - Final, Complete MRSA not isolated A/P: Assessment: Acute respiratory failure, multi-factorial (reasons noted below). Now off vent Pneumonia - management per Pulmonary and Medical services Acute on chronic diastolic CHF - clinically improving Acute renal failure likely d/t intravascular vol depletion - resolved S/P fall (09-24-18) - not reported as syncopal Right wrist facture s/p fall on 09-24-18 Cardiac cath of May 2017: angiographically mild CAD. LVEF 55-60%. LVEDP at the top limit of normal. No significant MR Echo of 09/25/18: LVEF 60-65%, PASP approx 25 mmHg Abdominal u/s of May 2017: the gallbladder is most likely filled with calculi - being followed by Dr. Narayan No evidence of AAA on abd ao screening scan of 04/18/18 Seg pressures of 04/08/18 did not show evidence of significant obstructive PAD COPD Fam h/o early CAD (father to [place] in his early 50s) Chronic tobacco use Hypertension Bipolar disorder Chronic mild, intermittent leg swelling H/o chronic impaired (somewhat slurred) speech Plan: Complex management due to multisystem involvement (pulmonary, renal, cardiac) Continue current regimen I spoke with him and answered questions Monitor lab closely Replace Mag BP and HR not well controlled - increase BB Physician Assessment Physician Assessment Feels less short of breath today. No cp or palp or syncope Lungs: fair air entry, prolonged exp Cor: reg Ext: no c/c, mild edema A&R * As documented in our note above that I updated (italics) * Replenish lytes * Monitor labs MENG PACHECO COMPACTOR DRIVER Sep 29, 2018 08:44 ERIN HUTCHINSON MD FACP FAC CCDS Sep 29, 2018 14:21
[2018-09-29] MEDS ORDERED: meTOprolol TARTRATE 25 MG (LOPRESSOR) TABLET PO SCH (09:00)
[2018-09-29] MEDS ORDERED: ESCITALOPRAM OXALATE 40 MG PO SCH (09:00)
[2018-09-29] MEDS ORDERED: ARIPIPRAZOLE 20 MG PO SCH (09:00)
[2018-09-29] MEDS ORDERED: FUROSEMIDE 40 MG/4 ML INJ (LASIX) IVP ONE (09:00)
[2018-09-29] MEDS: meTOprolol TARTRATE 50 MG (LOPRESSOR) TAB PO SCH ×2 (09:06→20:15)
[2018-09-29] MEDS: VANCOMYCIN 1 GM/NS 250 ML IVPB IV SCH ×4 (09:13→20:16)
--- NOTE | 2018-09-29 09:24 | Diagnostic Imaging Report ---
EXAMINATION: Chest radiograph, portable AP view. DATE: September 29, 2018 at 0354 hours. INDICATION: 58-year-old male, respiratory failure. COMPARISON: September 28, 2018. FINDINGS: The right internal jugular central venous line overlies the upper SVC. The previously noted endotracheal tube and nasogastric tube have been removed. Stable overall appearance of the cardiomediastinal silhouette. There is no identified pneumothorax. There is a persistent right pleural effusion with nonspecific right mid and lower lung zone airspace consolidation. There are streaky opacities in the left medial lung base. IMPRESSION: 1. Grossly unchanged nonspecific airspace opacification within the right mid and lower lung zones with right pleural effusion and streaky opacities in the left medial lung base. 2. Interval removal of the previously noted endotracheal tube and nasogastric tube. Dictated by: Dictated on workstation # [id number]
[2018-09-29] MEDS: ACETAMINOPHEN 325 MG TABLET PO PRN ×2 (11:18→18:32)
[2018-09-29] MEDS: lisINopril 5 MG (PRINIVIL) TABLET PO SCH (20:15)
[2018-09-29] MEDS ORDERED: NON-FORMULARY MEDICATION 1 EA EA (Lisinopril 2.5 MG) PO SCH (21:00)
[2018-09-30] VITALS (7 sets, daily range): BP systolic 148–171; BP diastolic 67–82
[2018-09-30] MEDS: RT-ALBUTEROL/IPRATROPIUM 3 ML (DUONEB) VIAL INH SCH ×6 (02:46→22:26)
[2018-09-30 05:43] LABS: BASOPHILS % (AUTO) 0 % (0-10); EOSINOPHILS # (AUTO) 0.2 10^3/uL (0.0-0.3); EOSINOPHILS % (AUTO) 3 % (0-10); HEMATOCRIT 47 % (40-54); HEMOGLOBIN 14.8 G/DL (13.3-17.7); LYMPHOCYTES # (AUTO) 1.6 X 10^3 (1.0-4.0); LYMPHOCYTES % (AUTO) 24 % (12-44); MEAN CORPUSCULAR HEMOGLOBIN 28 PG (25-34); MEAN CORPUSCULAR HGB CONC 31 G/DL (32-36); MEAN CORPUSCULAR VOLUME 90 FL (80-99); MEAN PLATELET VOLUME 9.9 FL (7.4-10.4); MONOCYTES # (AUTO) 1.1 X 10^3 (0.0-1.0); MONOCYTES % (AUTO) 16 % (0-12); NEUTROPHILS % (AUTO) 58 % (42-75); PLATELET COUNT 113 10^3/uL (130-400); RED BLOOD COUNT 5.27 10^6/uL (4.35-5.85); RED CELL DISTRIBUTION WIDTH 16.1 % (10.0-14.5)
[2018-09-30 06:03] LABS: BUN/CREATININE RATIO 17; CALCIUM 9.2 MG/DL (8.5-10.1); CARBON DIOXIDE 30 MMOL/L (21-32); CHLORIDE 99 MMOL/L (98-107); CREATININE SERUM 0.81 MG/DL (0.60-1.30); GFR ESTIMATED > 60; GLUCOSE 91 MG/DL (70-105); MAGNESIUM 1.7 MG/DL (1.8-2.4); POTASSIUM 4.2 MMOL/L (3.6-5.0); SODIUM 140 MMOL/L (135-145)
[2018-09-30] MEDS ORDERED: TROUGH ORDER-PHARMACY XX NR (07:00)
[2018-09-30] MEDS: KCL 20 MEQ TAB (K-DUR) PO SCH (07:03)
--- NOTE | 2018-09-30 07:28 | Progress Note (SOAP) ---
Subjective Time Seen by a Provider: 07:22 Subjective/Events-last exam Patient is clinically improving. Patient breathing better. Magnesium 1.7. Platelet count 113,000 thrombocytopenia. Fractured wrist. Pneumonia. Congestive heart failure Objective Exam Vital Signs Date Time Temp Pulse Resp B/P (MAP) Pulse Ox O2 Delivery O2 Flow Rate FiO2 09/30/18 06:48 91 Nasal Cannula 5.00 09/30/18 04:00 98.4 78 16 151/71 (97) 93 Nasal Cannula 5.00 09/30/18 02:48 93 Nasal Cannula 5.00 09/30/18 01:00 80 09/30/18 00:00 98.2 87 16 158/75 (102) 93 Nasal Cannula 5.00 09/29/18 22:28 93 Nasal Cannula 5.00 09/29/18 20:22 97.0 84 20 143/78 (99) 95 Nasal Cannula 5.00 09/29/18 20:00 Nasal Cannula 5.00 09/29/18 19:00 85 09/29/18 18:44 93 Nasal Cannula 5.00 09/29/18 16:00 96.7 80 18 148/70 (96) 96 Room Air 09/29/18 14:58 103 91 40 09/29/18 14:57 Nasal Cannula 5.00 09/29/18 13:00 82 09/29/18 11:00 91 Nasal Cannula 5.00 09/29/18 10:00 99.1 90 22 172/79 (110) 92 Nasal Cannula 5.00 09/29/18 09:00 96 18 147/87 (107) 91 Nasal Cannula 5.00 09/29/18 08:00 90 Nasal Cannula 5.00 09/29/18 08:00 97.1 107 24 142/84 (103) 90 Nasal Cannula 5.00 I & O 09/30/18 07:00 Intake Total 2910 ml Output Total 5075 ml Balance -2165 ml Capillary Refill : Less Than 3 SecondsLess Than 3 Seconds General Appearance: No Apparent Distress, WD/WN HEENT: Normal ENT Inspection Neck: Normal Inspection Respiratory: No Accessory Muscle Use, No Respiratory Distress, Decreased Breath Sounds Cardiovascular: Regular Rate, Rhythm, No Murmur Gastrointestinal: non tender, soft Results Lab Laboratory Tests 09/30/18 05:35 Laboratory Tests 09/30/18 05:35: White Blood Count 7.0, Red Blood Count 5.27, Hemoglobin 14.8, Hematocrit 47, Mean Corpuscular Volume 90, Mean Corpuscular Hemoglobin 28, Mean Corpuscular Hemoglobin Concent 31L, Red Cell Distribution Width 16.1H, Platelet Count 113L, Mean Platelet Volume 9.9, Neutrophils (%) (Auto) 58, Lymphocytes (%) (Auto) 24, Monocytes (%) (Auto) 16H, Eosinophils (%) (Auto) 3, Basophils (%) (Auto) 0, Neutrophils # (Auto) 4.0, Lymphocytes # (Auto) 1.6, Monocytes # (Auto) 1.1H, Eosinophils # (Auto) 0.2, Basophils # (Auto) 0.0, Sodium Level 140, Potassium Level 4.2, Chloride Level 99, Carbon Dioxide Level 30, Anion Gap 11, Blood Urea Nitrogen 14, Creatinine 0.81, Estimat Glomerular Filtration Rate > 60, BUN/ Creatinine Ratio 17, Glucose Level 91, Calcium Level 9.2, Phosphorus Level 3.0, Magnesium Level 1.7L Microbiology 09/24/18 Blood Culture - Final, Complete No growth 09/25/18 MRSA Screen - Final, Complete MRSA not isolated Assessment/Plan Assessment/Plan Assess & Plan/Chief Complaint Pneumonia. Acute and chronic respiratory failure. Renal insufficiency back to normal. Hypotension better going off Levophed. Pneumonia on x-ray looks worse than yesterday. Congestive heart failure. . 09/29/18. Pneumonia. Acute and chronic respiratory failure. MRSA. Sputum H influenza and strep. CHF. COPD. Hypertension. Bipolar. . 09/30/18. Pneumonia. Acute and chronic respiratory failure. MRSA. Sputum H influenza and strep. CHF. COPD. Tobacco isn't. Hypertension. Bipolar. Hypomagnesemia. Thrombocytopenia Clinical Quality Measures Admission Status Admission Dx Acute and chronic respiratory failure. Pneumonia. Right sided pleural effusion. Hypotension. Acute renal failure. Fractured wrist. Tobacco usage. Hep C. COPD. Persistent smoking noncompliant DVT/VTE Risk/Contraindication: Risk Factor Score Per Nursin RFS Level Per Nursing on Admit: 4+=Very High ART CASANOVA DO Sep 30, 2018 07:27
[2018-09-30] MEDS ORDERED: MAGNESIUM 1 GM/100 ML IVPB 100 ML IV ONE (07:30)
[2018-09-30] MEDS: ARIPIPRAZOLE 10 MG (ABILIFY) TAB PO SCH (08:27)
[2018-09-30] MEDS: ASPIRIN E.C. 81 MG (ECOTRIN) TAB PO SCH (08:27)
[2018-09-30] MEDS: PANTOPRAZOLE 40 MG (PROTONIX) TAB PO SCH (08:27)
[2018-09-30] MEDS: meTOprolol TARTRATE 50 MG (LOPRESSOR) TAB PO SCH ×2 (08:27→20:24)
[2018-09-30] MEDS: clonazePAM 0.5 MG (KlonoPIN) TAB PO SCH ×2 (08:27→20:23)
[2018-09-30] MEDS: DIVALPROX SPRINKLE 125 MG (DEPAKOTE) CAP PO SCH ×3 (08:27→20:23)
--- NOTE | 2018-09-30 08:48 | Diagnostic Imaging Report ---
INDICATION: Pneumonia, heart failure, respiratory failure. TECHNIQUE: Single view chest 3:11 AM. CORRELATION STUDY: 09/29/2018 FINDINGS: Right IJ central line stable. Cardiac enlargement unchanged. Vasculature appears stable. Continued infiltrates with effusion at the right lung base. Left lung stable. IMPRESSION: 1. Continued combination of effusion along with consolidation at the right lung base. Dictated by: Dictated on workstation # [id number]
--- NOTE | 2018-09-30 09:14 | Pulmonary Progress Note ---
BRAYAN VERDUZCO MED STUDENT 09/30/18 0913: Subjective Date Seen by a Provider: Sep 30, 2018 Time Seen by a Provider: 09:09 Subjective/Events-last exam Patient reports he is feeling "a little better" today although he still has a cough productive of clear/white sputum. Sepsis Event Evaluation Height, Weight, BMI Height: 5'7.00" Weight: 233lbs. 0.3oz. 105.888540jv; 38.1 BMI Method:Stated Focused Exam Respiratory: Chest Non Tender, No Accessory Muscle Use, Other (requires 5L O2 via nasal canula) Cardiovascular: Regular Rate, Rhythm, No Murmur Skin: normal color, warm/dry Exam Exam Vital Signs Date Time Temp Pulse Resp B/P (MAP) Pulse Ox O2 Delivery O2 Flow Rate FiO2 09/30/18 08:00 98.4 82 22 171/77 (108) 94 Room Air 09/30/18 06:48 91 Nasal Cannula 5.00 09/30/18 04:00 98.4 78 16 151/71 (97) 93 Nasal Cannula 5.00 09/30/18 02:48 93 Nasal Cannula 5.00 09/30/18 01:00 80 09/30/18 00:00 98.2 87 16 158/75 (102) 93 Nasal Cannula 5.00 09/29/18 22:28 93 Nasal Cannula 5.00 09/29/18 20:22 97.0 84 20 143/78 (99) 95 Nasal Cannula 5.00 09/29/18 20:00 Nasal Cannula 5.00 09/29/18 19:00 85 09/29/18 18:44 93 Nasal Cannula 5.00 09/29/18 16:00 96.7 80 18 148/70 (96) 96 Room Air 09/29/18 14:58 103 91 40 09/29/18 14:57 Nasal Cannula 5.00 09/29/18 13:00 82 09/29/18 11:00 91 Nasal Cannula 5.00 09/29/18 10:00 99.1 90 22 172/79 (110) 92 Nasal Cannula 5.00 I & O 09/30/18 07:00 Intake Total 3110 ml Output Total 6250 ml Balance -3140 ml Height & Weight Height: 5'7.00" Weight: 233lbs. 0.3oz. 105.643886ar; 38.1 BMI Method:Stated General Appearance: No Apparent Distress, WD/WN HEENT: Normal ENT Inspection Neck: Normal Inspection Respiratory: No Accessory Muscle Use, No Respiratory Distress, Decreased Breath Sounds Cardiovascular: Regular Rate, Rhythm, No Murmur Capillary Refill: Less Than 3 Seconds Gastrointestinal: non tender, soft Extremity: Pedal Edema Neurologic/Psychiatric: Alert, Oriented x3 Skin: Normal Color, Warm/Dry Results Lab Laboratory Tests 09/29/18 03:35 09/30/18 05:35 Assessment/Plan Assessment/Plan Acute on chronic respiratory failure -Pt is doing well off of the ventilator -Sats 93 on 5L O2 via nasal canula Atelectasis with right pleural effusion - improving ( present on admission) -Continue Lasix --Pneumonia with MRSA bacteremia. In sputum H influenza and strep -Doubt emphyema - leukocytosis improving. never had fever -Sputum production has improved - IVF hep lock -ceftriaxone -Monitor close Hypophos, hypomag, hypokalemia -replace Acute renal failure -resolved Right wrist fracture -Ortho has been consulted Pt has been transferred to 4th floor with PT/OT and we will continue to monitor close KEYONA EVANS DO 09/30/18 1309: Subjective Time Seen by a Provider: 13:05 Subjective/Events-last exam Pt feels improved. Cough is mild and only clear sputum production. Exam Exam General Appearance: No Apparent Distress, WD/WN HEENT: Normal ENT Inspection Neck: Normal Inspection Respiratory: No Accessory Muscle Use, No Respiratory Distress, Decreased Breath Sounds Cardiovascular: Regular Rate, Rhythm, No Murmur Capillary Refill: Less Than 3 Seconds Gastrointestinal: non tender, soft Extremity: Pedal Edema Neurologic/Psychiatric: Alert, Oriented x3 Assessment/Plan Assessment/Plan Acute on chronic respiratory failure - Improved -Pt is doing well off of the ventilator -Sats 93 on 5L O2 via nasal canula Atelectasis with right pleural effusion - improving ( present on admission) -Continue Lasix --Pneumonia with MRSA bacteremia. In sputum H influenza and strep -Sputum production has improved - IVF hep lock -ceftriaxone -Monitor close Acute renal failure -resolved Right wrist fracture -Ortho has been consulted BRAYAN VERDUZCO MED STUDENT Sep 30, 2018 09:13 KEYONA EVANS DO Sep 30, 2018 13:09
[2018-09-30] MEDS: VANCOMYCIN 1 GM/NS 250 ML IVPB IV SCH ×2 (09:37)
--- NOTE | 2018-09-30 10:11 | Progress Note-Cardiology ---
Cardiology SOAP Progress Note Subjective: Sitting up in a chair at the bedside. C/O right wrist pain. No c/o CP or palpitations. Feels SOB is better. Objective: I&O/Vital Signs 09/30/18 09/30/18 09/30/18 09/30/18 02:48 04:00 06:48 07:00 Temp 98.4 Pulse 78 80 Resp 16 B/P (MAP) 151/71 (97) Pulse Ox 93 93 91 O2 Delivery Nasal Cannula Nasal Cannula Nasal Cannula O2 Flow Rate 5.00 5.00 5.00 09/30/18 09/30/18 08:00 08:00 Temp 98.4 Pulse 82 Resp 22 B/P (MAP) 171/77 (108) Pulse Ox 94 O2 Delivery Nasal Cannula Room Air O2 Flow Rate 5.00 09/30/18 00:00 Intake Total 1960 ml Output Total 3675 ml Balance -1715 ml Weight (Pounds): 233 Weight (Ounces): 0.3 Weight (Calculated Kilograms): 105.743162 Constitutional: AAO x 3, well-developed, well-nourished Respiratory: No accessory muscle use, No respiratory distress; chest expansion is symmetric, chest is bilaterally symmetric, rhonchi (scattered), other (fair bilat air entry) Cardiovascular: regular rate-rhythm, S1 and S2, systolic murmur Gastrointestional: No tender; soft; No guarding; audible bowel sounds Extremities: other (mild bilat LE edema); No clubbing, No cyanosis Neurologic/Psychiatric: other (awake, oriented, able to move all limbs equally) Skin: normal color, warm/dry, other (soft cast to right wrist; abrasions to face) Results/Procedures: Labs Laboratory Tests 09/30/18 05:35: White Blood Count 7.0, Red Blood Count 5.27, Hemoglobin 14.8, Hematocrit 47, Mean Corpuscular Volume 90, Mean Corpuscular Hemoglobin 28, Mean Corpuscular Hemoglobin Concent 31L, Red Cell Distribution Width 16.1H, Platelet Count 113L, Mean Platelet Volume 9.9, Neutrophils (%) (Auto) 58, Lymphocytes (%) (Auto) 24, Monocytes (%) (Auto) 16H, Eosinophils (%) (Auto) 3, Basophils (%) (Auto) 0, Neutrophils # (Auto) 4.0, Lymphocytes # (Auto) 1.6, Monocytes # (Auto) 1.1H, Eosinophils # (Auto) 0.2, Basophils # (Auto) 0.0, Sodium Level 140, Potassium Level 4.2, Chloride Level 99, Carbon Dioxide Level 30, Anion Gap 11, Blood Urea Nitrogen 14, Creatinine 0.81, Estimat Glomerular Filtration Rate > 60, BUN/ Creatinine Ratio 17, Glucose Level 91, Calcium Level 9.2, Phosphorus Level 3.0, Magnesium Level 1.7L 09/30/18 07:10: Vancomycin Level Trough 15.7 Microbiology 09/24/18 Blood Culture - Final, Complete No growth 09/25/18 MRSA Screen - Final, Complete MRSA not isolated Procedures NAME: [facility] REC#: [id number] PT STATUS: ADM IN : 1960 PHYSICIAN: KEYONA EVANS DO ADMIT DATE: 09/24/18 Draft Date of Exam:09/30/18 CHEST 1 VIEW, AP/PA ONLY INDICATION: Pneumonia, heart failure, respiratory failure. TECHNIQUE: Single view chest 3:11 AM. CORRELATION STUDY: 09/29/2018 FINDINGS: Right IJ central line stable. Cardiac enlargement unchanged. Vasculature appears stable. Continued infiltrates with effusion at the right lung base. Left lung stable. IMPRESSION: 1. Continued combination of effusion along with consolidation at the right lung base. Dictated on workstation # [id number] Dict: 09/30/18 [id number] Trans: 09/30/18 [id number] Interpreted by: PHILIP BERMUDEZ DO Electronically signed by: A/P: Assessment: Acute respiratory failure, multi-factorial (reasons noted below). Now off vent Pneumonia - management per Pulmonary and Medical services Acute on chronic diastolic CHF - clinically improving Acute renal failure likely d/t intravascular vol depletion - resolved S/P fall (09-24-18) - not reported as syncopal Right wrist facture s/p fall on 09-24-18 Cardiac cath of May 2017: angiographically mild CAD. LVEF 55-60%. LVEDP at the top limit of normal. No significant MR Echo of 09/25/18: LVEF 60-65%, PASP approx 25 mmHg Abdominal u/s of May 2017: the gallbladder is most likely filled with calculi - being followed by Dr. Narayan No evidence of AAA on abd ao screening scan of 04/18/18 Seg pressures of 04/08/18 did not show evidence of significant obstructive PAD COPD Fam h/o early CAD (father to [place] in his early 50s) Chronic tobacco use Hypertension Bipolar disorder Chronic mild, intermittent leg swelling H/o chronic impaired (somewhat slurred) speech Plan: Complex management due to multisystem involvement (pulmonary, renal, cardiac) Continue current regimen We have spoke with him and answered questions Monitor lab closely BP and HR remain not well controlled - increase BB Physician Assessment Physician Assessment Still short of breath, but is better than before Notes malaise No cp or palp or syncope Lungs: fair to good air entry, diminished at the bases Cor: reg Ext: no c/c. Mild leg edema A&R * As documented in our note above that I updated (italics) * Augment bp meds becuase htn not well controlled * Add oral furosemide to the regimen because of diastolic dysfunction leading to symptomatic CHF * Monitor labs MENG PACHECO SEAM SEWER Sep 30, 2018 10:10 ERIN HUTCHINSON MD FACP FAC CCDS Sep 30, 2018 13:45
[2018-09-30] MEDS ORDERED: meTOprolol TARTRATE 50 MG (LOPRESSOR) TAB PO NR (10:15)
--- NOTE | 2018-09-30 14:55 | ST Dysphagia Evaluation ---
Speech Evaluation-General Medical Diagnosis Pneumonia, Fractured Wrist Onset Date: Sep 30, 2018 Therapy Diagnosis Therapy Diagnosis: Oropharyngeal Dysphagia Precautions Precautions: Fall, Aspiration Precautions/Isolations: Fall Prevention, Standard Precautions, Contact/Enteric Isolation Referral Referring Physician: Dr. Lacey Medical History Reviewed History: Yes Social History Home: [facility] Speech PLF/Current-Dysphagia Prior Level of Function Patient lives in a local group home. He was independent for most daily tasks. Subjective Patient was pleasant and cooperative with the Bedside Dysphagia Evaluation Cognitive Status Patient Orientation: Person, Place, Situation Oral Motor Skills Dentition: Edentalous Current Food Consistancy: Dysphagia Soft, Ground Meats, Thin Liquids Ability to Follow Directions: Good Oral Expression Ability: No Impairment Patient's intelligibility is mildly decreased due to be edentulous. Voice Voice Phonatory-Based Quality: Breathy Voice Pitch: Mildly Low Voice Loudness: Mildly Loud Face Facial Symmetry: Symmetrical Oral-Facial Assessment Oral-Facial Dentition: Normal Labial Seal Description: Reduced ROM Smile: Reduced ROM Lingual Protrusion: Abnormal Weakness Lingual ROM: Abnormal Weakness Lingual Strength: Normal Gag Reflex Response: Normal Pharynx Velopharyngeal Move.: Normal Volitional Dry Swallow: Yes Productive Cough: No Productive Throat Clear: Yes Dysphagia Evaluation Consistencies Presented: Thin Liquid, Mechanical Soft, Pureed Oral motor function slight ROM decrease, swallow initiation WFL Swallowing Precautions: Alternate Liquids/Solids, Double Swallow, Decreased Rate of Oral Intake, Liquids from Straw, Small Bites and Sips, Sitting Upright 90 Degrees, Sitting 90 Degrees 30 Post Intake Patient was noted to eat quickly. Patient education provided for slower rate of intake to reduce risk of aspiration. Dysphagia Evaluation Summary Patient is a 58-year-old male, referred to speech language pathology for dysphagia evaluation and treatment as appropriate. The patient choked on his lunch today. Per nursing report he choked to the point of turning blue and cleared when the food was ejected. The patient's recent past history is significant for pneumonia and a fractured wrist. Patient is know to this clinician due to being a resident at a local group home. Patient is edentulous which he states he has not had teeth for several years. He has been on a mechanical soft level for years without difficulty. Patient was able to effectively swallow all consistencies without difficulty. Patient will continue on current diet level. Patient was educated regarding the need to slow down with all intake and sit up during intake. Barriers to Learning Patient has decreased level of cognition. Speech Short Term Goals Short Term Goals Short Term Goals 1) Patient will demonstrate safe oral intake with 90% accuracy, independently. 2) Patient will tolerate least restrictive diet without signs/symptoms of aspiration. Speech Gaming Pit Boss Goals Fdc Goals Patient will maintain adequate nutrition/hydration via safe, effective swallow function. Speech-Plan Patient/Family Goals Patient/Family Goals: Patient will return to the group home when he is medically stable. Treatment Plan Speech Therapy Treatment Plan: Continue Plan of Care Patient is recommended for skilled ST for dysphagia therapy. Treatment Duration: Oct 03, 2018 Frequency: 5 times per week Estimated Hrs Per Day: .5 hour per day Rehab Potential: Good Barriers to Learning: Patient has decreased cognition. Pt/Family Agrees to Plan: Yes Safety Risks/Education Teaching Recipient: Patient Teaching Methods: Discussion Response to Teaching: Verbalize Understanding Education Topics Provided: Safety precautions for oral intake. Time Speech Therapy Time In: 14:30 Speech Therapy Time Out: 14:50 Total Billed Time: 20 Billed Treatment Time 1, MARYJANE Rojas Sep 30, 2018 14:55
[2018-09-30] MEDS: BENZONATATE 100 MG (TESSALON) CAPSULE PO PRN (14:56)
[2018-09-30] MEDS ORDERED: PIPERACILLIN SODIUM/TAZOBACTAM 4.5 GM in NS (IVPB) 100 ML IV SCH (16:00)
--- NOTE | 2018-09-30 16:10 | Diagnostic Imaging Report ---
Indication: Aspiration. PA and lateral chest Right IJ central line tip projects over the SVC. There is infiltrate present in the right lower lung with a small effusion. Left lung is clear. Impression: Right basilar infiltrate and effusion similar to the comparison exam from earlier in the day. Dictated by: Dictated on workstation # [id number]
[2018-09-30] MEDS: lisINopril 5 MG (PRINIVIL) TABLET PO SCH (20:23)
[2018-09-30] MEDS ORDERED: meTOprolol TARTRATE 50 MG (LOPRESSOR) TAB PO SCH (21:00)
[2018-10-01] MEDS: RT-ALBUTEROL/IPRATROPIUM 3 ML (DUONEB) VIAL INH SCH ×6 (02:05→22:36)
[2018-10-01 04:14] VITALS: BP 161/72
[2018-10-01] MEDS: KCL 20 MEQ TAB (K-DUR) PO SCH (06:09)
--- NOTE | 2018-10-01 06:52 | Pulmonary Progress Note ---
BRAYAN VERDUZCO MED STUDENT 10/01/18 0652: Subjective Date Seen by a Provider: Oct 01, 2018 Time Seen by a Provider: 06:48 Subjective/Events-last exam Patient was sleeping when I entered the room and woke up long enough to say he' s feeling "ok" Sepsis Event Evaluation Height, Weight, BMI Height: 5'7.00" Weight: 233lbs. 0.3oz. 105.551431yo; 38.1 BMI Method:Stated Focused Exam Respiratory: Chest Non Tender, No Accessory Muscle Use, Other (O2 is 93 this am on 5L via nasal canula) Cardiovascular: Regular Rate, Rhythm, No Murmur Skin: normal color, warm/dry Exam Exam Vital Signs Date Time Temp Pulse Resp B/P (MAP) Pulse Ox O2 Delivery O2 Flow Rate FiO2 10/01/18 04:14 97.3 73 18 161/72 (101) 93 Nasal Cannula 5.00 10/01/18 01:00 75 09/30/18 23:38 97.2 71 18 151/70 (97) 96 Nasal Cannula 5.00 09/30/18 20:08 97.8 79 16 148/67 (94) 93 Nasal Cannula 5.00 09/30/18 20:00 Nasal Cannula 5.00 09/30/18 19:03 95 Nasal Cannula 5.00 09/30/18 19:00 75 09/30/18 16:47 98.4 72 16 151/82 (105) 96 Nasal Cannula 5.00 09/30/18 13:00 78 09/30/18 12:00 97.4 78 20 150/72 (98) 93 Room Air 09/30/18 08:00 98.4 82 22 171/77 (108) 94 Room Air 09/30/18 08:00 Nasal Cannula 5.00 09/30/18 07:00 80 I & O 10/01/18 07:00 Intake Total 2420 ml Output Total 4875 ml Balance -2455 ml Height & Weight Height: 5'7.00" Weight: 233lbs. 0.3oz. 105.281915ft; 38.1 BMI Method:Stated General Appearance: No Apparent Distress, WD/WN HEENT: Normal ENT Inspection Neck: Normal Inspection, Non Tender Respiratory: No Accessory Muscle Use, No Respiratory Distress, Crackles (right) , Decreased Breath Sounds, Other (on 5 L nasal canula) Cardiovascular: Regular Rate, Rhythm, No Murmur Capillary Refill: Less Than 3 Seconds Gastrointestinal: non tender, soft Extremity: Pedal Edema Neurologic/Psychiatric: Oriented x3 Skin: Normal Color, Warm/Dry Results Lab Laboratory Tests 09/30/18 05:35 Assessment/Plan Assessment/Plan Acute on chronic respiratory failure - Improved -Pt is doing well off of the ventilator -Sats 93 on 5L O2 via nasal canula Atelectasis with right pleural effusion -Continue Lasix -CT chest today to evaluate need for thoracentesis --Pneumonia with MRSA bacteremia. In sputum H influenza and strep -Sputum production has improved - IVF hep lock -ceftriaxone -Monitor close Acute renal failure -resolved Right wrist fracture -Ortho has been consulted KEYONA EVANS DO 10/01/18 0903: Subjective Time Seen by a Provider: 09:02 Subjective/Events-last exam Pt has no complaints. Sleeping well. Exam Exam General Appearance: No Apparent Distress, WD/WN HEENT: Normal ENT Inspection Neck: Normal Inspection, Non Tender Respiratory: Crackles (right), Decreased Breath Sounds Capillary Refill: Less Than 3 Seconds Extremity: Pedal Edema Neurologic/Psychiatric: Oriented x3 Skin: Normal Color Assessment/Plan Assessment/Plan Acute on chronic respiratory failure - Improved -Pt is doing well off of the ventilator -Sats 93 on 5L O2 via nasal canula Atelectasis with right pleural effusion -Continue Lasix -CT chest today to evaluate need for thoracentesis --Pneumonia with sputum H influenza and strep -Sputum production has improved - IVF hep lock -ceftriaxone -Monitor close Acute renal failure -resolved Right wrist fracture -Ortho has been consulted BRAYAN VERDUZCO MED STUDENT Oct 01, 2018 06:52 KEYONA EVANS DO Oct 01, 2018 09:03
--- NOTE | 2018-10-01 07:57 | Progress Note (SOAP) ---
Subjective Time Seen by a Provider: 07:56 Subjective/Events-last exam patient continues to improve. Patient resting comfortably. Patient does not know what 10-2 equals Objective Exam Vital Signs Date Time Temp Pulse Resp B/P (MAP) Pulse Ox O2 Delivery O2 Flow Rate FiO2 10/01/18 07:13 93 Nasal Cannula 5.00 10/01/18 04:14 97.3 73 18 161/72 (101) 93 Nasal Cannula 5.00 10/01/18 01:00 75 09/30/18 23:38 97.2 71 18 151/70 (97) 96 Nasal Cannula 5.00 09/30/18 20:08 97.8 79 16 148/67 (94) 93 Nasal Cannula 5.00 09/30/18 20:00 Nasal Cannula 5.00 09/30/18 19:03 95 Nasal Cannula 5.00 09/30/18 19:00 75 09/30/18 16:47 98.4 72 16 151/82 (105) 96 Nasal Cannula 5.00 09/30/18 13:00 78 09/30/18 12:00 97.4 78 20 150/72 (98) 93 Room Air 09/30/18 08:00 98.4 82 22 171/77 (108) 94 Room Air 09/30/18 08:00 Nasal Cannula 5.00 I & O 10/01/18 07:00 Intake Total 2420 ml Output Total 4875 ml Balance -2455 ml Capillary Refill : Less Than 3 SecondsLess Than 3 Seconds General Appearance: No Apparent Distress, WD/WN HEENT: Normal ENT Inspection Neck: Full Range of Motion, Normal Inspection Respiratory: No Accessory Muscle Use, No Respiratory Distress, Decreased Breath Sounds Cardiovascular: Regular Rate, Rhythm, No Murmur Gastrointestinal: non tender, soft Results Lab Laboratory Tests 10/01/18 01:40: Triglycerides Level 163H Microbiology 09/24/18 Blood Culture - Final, Complete No growth 09/25/18 MRSA Screen - Final, Complete MRSA not isolated Assessment/Plan Assessment/Plan Assess & Plan/Chief Complaint Pneumonia. Acute and chronic respiratory failure. Renal insufficiency back to normal. Hypotension better going off Levophed. Pneumonia on x-ray looks worse than yesterday. Congestive heart failure. . 09/29/18. Pneumonia. Acute and chronic respiratory failure. MRSA. Sputum H influenza and strep. CHF. COPD. Hypertension. Bipolar. . 09/30/18. Pneumonia. Acute and chronic respiratory failure. MRSA. Sputum H influenza and strep. CHF. COPD. Tobacco isn't. Hypertension. Bipolar. Hypomagnesemia. Thrombocytopenia. . 10/01/18. Pneumonia. Acute and chronic respiratory failure. Renal insufficiency. Hypotension. Patient comfortable and doing better. right wrist fracture Clinical Quality Measures Admission Status Admission Dx Acute and chronic respiratory failure. Pneumonia. Right sided pleural effusion. Hypotension. Acute renal failure. Fractured wrist. Tobacco usage. Hep C. COPD. Persistent smoking noncompliant DVT/VTE Risk/Contraindication: Risk Factor Score Per Nursin RFS Level Per Nursing on Admit: 4+=Very High ART CASANOVA DO Oct 01, 2018 07:57
[2018-10-01 08:00] VITALS: BP 140/66
--- NOTE | 2018-10-01 08:03 | Diagnostic Imaging Report ---
INDICATION: Pneumonia. Comparison is made with prior examination from 09/30/2018. FINDINGS: There is a right basilar infiltrate and right pleural effusion. There is cardiomegaly. The left lung is clear. There is no pneumothorax. Mediastinum is unremarkable. IMPRESSION: Right basilar infiltrate suspect for pneumonia with right pleural effusion. Cardiomegaly. Dictated by: Dictated on workstation # [id number]
[2018-10-01] MEDS: DIVALPROX SPRINKLE 125 MG (DEPAKOTE) CAP PO SCH ×3 (08:18→21:14)
[2018-10-01] MEDS: FUROSEMIDE 40 MG (LASIX) TAB PO SCH (08:19)
[2018-10-01] MEDS: clonazePAM 0.5 MG (KlonoPIN) TAB PO SCH ×2 (08:19→21:14)
[2018-10-01] MEDS: PANTOPRAZOLE 40 MG (PROTONIX) TAB PO SCH (08:19)
[2018-10-01] MEDS: ASPIRIN E.C. 81 MG (ECOTRIN) TAB PO SCH (08:19)
[2018-10-01] MEDS: ARIPIPRAZOLE 10 MG (ABILIFY) TAB PO SCH (08:19)
[2018-10-01] MEDS: meTOprolol TARTRATE 50 MG (LOPRESSOR) TAB PO SCH ×3 (08:19→21:14)
[2018-10-01 09:39] LABS: HEMOGLOBIN 15.2 G/DL (13.3-17.7); MEAN PLATELET VOLUME 10.2 FL (7.4-10.4); RED BLOOD COUNT 5.38 10^6/uL (4.35-5.85); WHITE BLOOD COUNT 7.5 10^3/uL (4.3-11.0)
[2018-10-01 09:56] LABS: BUN/CREATININE RATIO 19; CALCIUM 9.4 MG/DL (8.5-10.1); CARBON DIOXIDE 31 MMOL/L (21-32); CHLORIDE 100 MMOL/L (98-107); CREATININE SERUM 0.78 MG/DL (0.60-1.30); GFR ESTIMATED > 60; GLUCOSE 115 MG/DL (70-105); POTASSIUM 4.2 MMOL/L (3.6-5.0); SODIUM 140 MMOL/L (135-145)
[2018-10-01] MEDS ORDERED: NS 100 ML (IVPB) BAG IV ONE (11:15)
[2018-10-01] MEDS ORDERED: IOHEXOL 350 MG/ML 100 ML (OMNIPAQUE 350) VIAL IV ONE (11:15)
[2018-10-01] MEDS ORDERED: RECEIVED CONTRAST (Hold Metformin) IV SCH (11:15)
[2018-10-01 12:00] VITALS: BP 146/70
--- NOTE | 2018-10-01 12:25 | Diagnostic Imaging Report ---
PROCEDURE: CT chest with contrast only. TECHNIQUE: Multiple contiguous axial images were obtained through the chest after administration of intravenous contrast. INDICATION: Cough, shortness of breath. FINDINGS: The previous CT chest exam performed on 09/24/2018 noted atelectasis/infiltrate and fluid involving the right mid lung and right lung base. On this study, the right mid lung and right lung base do seem better aerated, but there is still some residual pneumonia/atelectasis and fluid present. The right upper lung and left lung are generally clear. The heart is stable in size. Coronary artery calcifications are again noted. The aorta is not abnormally dilated, and there is no sign of a dissection. The pulmonary arteries are not well opacified. This does limit the sensitivity of this exam for a pulmonary embolus. There is no definite defect to suggest a pulmonary embolus. The small nonspecific mediastinal nodes seen previously are again evident and unchanged. The thyroid gland is unremarkable. The sections through the upper abdomen again show cholelithiasis without evidence for acute cholecystitis. The stomach is filled with particulate matter and consequently difficult to assess. The bone windows are unremarkable for a fracture or for a destructive lesion. IMPRESSION: 1. The appearance of the chest has improved as the right mid lung and right lung base are better aerated. However, there is still a fair amount of residual pneumonia/atelectasis and loculated fluid present. 2. There is no acute cardiopulmonary abnormality noted otherwise. 3. The pulmonary arteries were not well opacified, and consequently the evaluation for a pulmonary embolus is limited. There is no definite defect to indicate a pulmonary embolus. 4. There is cholelithiasis without evidence for acute cholecystitis. Dictated by: Dictated on workstation # [id number]
--- NOTE | 2018-10-01 12:59 | Progress Note-Cardiology ---
Cardiology SOAP Progress Note Subjective: No new symptoms Has exertional shortness of breath No cp or palp or syncope Objective: I&O/Vital Signs 10/01/18 10/01/18 10/01/18 10/01/18 01:00 04:14 07:00 07:13 Temp 97.3 Pulse 75 73 72 Resp 18 B/P (MAP) 161/72 (101) Pulse Ox 93 93 O2 Delivery Nasal Cannula Nasal Cannula O2 Flow Rate 5.00 5.00 10/01/18 10/01/18 10/01/18 10/01/18 08:00 08:00 10:59 12:00 Temp 97.6 97.4 Pulse 72 78 Resp 18 18 B/P (MAP) 140/66 (90) 146/70 (95) Pulse Ox 93 92 95 O2 Delivery Nasal Cannula Nasal Cannula Nasal Cannula Nasal Cannula O2 Flow Rate 5.00 5.00 4.00 5.00 10/01/18 00:00 Intake Total 1870 ml Output Total 3725 ml Balance -1855 ml Weight (Pounds): 233 Weight (Ounces): 0.3 Weight (Calculated Kilograms): 105.036862 Constitutional: AAO x 3, well-developed, well-nourished Respiratory: No accessory muscle use, No respiratory distress; chest expansion is symmetric, chest is bilaterally symmetric, rhonchi (scattered), other (fair bilat air entry) Cardiovascular: regular rate-rhythm, S1 and S2, systolic murmur Gastrointestional: No tender; soft; No guarding; audible bowel sounds Extremities: other (mild bilat LE edema); No clubbing, No cyanosis Neurologic/Psychiatric: other (awake, oriented, able to move all limbs equally) Skin: normal color, warm/dry Results/Procedures: Labs Laboratory Tests 10/01/18 01:40: Triglycerides Level 163H 10/01/18 09:15: White Blood Count 7.5, Red Blood Count 5.38, Hemoglobin 15.2, Hematocrit 48, Mean Corpuscular Volume 90, Mean Corpuscular Hemoglobin 28, Mean Corpuscular Hemoglobin Concent 31L, Red Cell Distribution Width 16.0H, Platelet Count 120L, Mean Platelet Volume 10.2, Sodium Level 140, Potassium Level 4.2, Chloride Level 100, Carbon Dioxide Level 31, Anion Gap 9, Blood Urea Nitrogen 15, Creatinine 0.78, Estimat Glomerular Filtration Rate > 60, BUN/Creatinine Ratio 19, Glucose Level 115H, Calcium Level 9.4 Microbiology 09/24/18 Blood Culture - Final, Complete No growth 09/25/18 MRSA Screen - Final, Complete MRSA not isolated Laboratory Tests 09/30/18 05:35 10/01/18 09:15 A/P: Assessment: Acute respiratory failure, multi-factorial (reasons noted below). Now off vent Pneumonia - management per Pulmonary and Medical services Acute on chronic diastolic CHF - clinically improving Acute renal failure likely d/t intravascular vol depletion - resolved S/P fall (09-24-18) - not reported as syncopal Right wrist facture s/p fall on 09-24-18 Cardiac cath of May 2017: angiographically mild CAD. LVEF 55-60%. LVEDP at the top limit of normal. No significant MR Echo of 09/25/18: LVEF 60-65%, PASP approx 25 mmHg Abdominal u/s of May 2017: the gallbladder is most likely filled with calculi - being followed by Dr. Narayan No evidence of AAA on abd ao screening scan of 04/18/18 Seg pressures of 04/08/18 did not show evidence of significant obstructive PAD COPD Fam h/o early CAD (father to [place] in his early 50s) Chronic tobacco use Hypertension Bipolar disorder Chronic mild, intermittent leg swelling H/o chronic impaired (somewhat slurred) speech Plan: Complex management due to multisystem involvement (pulmonary, renal, cardiac) Continue current regimen Daily oral furosemide added 09/30/18 Monitor lab ERIN HUTCHINSON MD FACP FAC CCDS Oct 01, 2018 12:59
--- NOTE | 2018-10-01 14:23 | Speech Therapy Daily Note ---
Speech Daily Progress Note Subjective Date Seen by Provider: Oct 01, 2018 Time Seen by Provider: 00:15 Patient pleasant and cooperative. Objective Patient trained in compensatory strategies for safe oral intake with 60% return demonstration with mod verbal and/or visual cues. Treatment Plan Continue Plan of Care Speech Short Term Goals Short Term Goals Short Term Goals 1) Patient will demonstrate safe oral intake with 90% accuracy, independently. 2) Patient will tolerate least restrictive diet without signs/symptoms of aspiration. Speech Custodial Goals Asphalt Paver Operator Goals Patient will maintain adequate nutrition/hydration via safe, effective swallow function. Speech-Plan Patient/Family Goals Patient/Family Goals: Patient will return home to a local correction where he lived prior to hospitalization. Treatment Plan Speech Therapy Treatment Plan: Continue Plan of Care Patient has continued on his modified diet post evaluation without further choking incidents. Treatment Duration: Oct 03, 2018 Frequency: 5 times per week Estimated Hrs Per Day: .5 hour per day Rehab Potential: Good Barriers to Learning: Patient has decreased cognition. Pt/Family Agrees to Plan: Yes Safety Risks/Education Teaching Recipient: Patient Teaching Methods: Discussion Response to Teaching: Verbalize Understanding Education Topics Provided: Safety of oral intake. Time Speech Therapy Time In: 14:00 Speech Therapy Time Out: 14:15 Total Billed Time: 15 Billed Treatment Time 1, MARYJANE Spencer Oct 01, 2018 14:23
[2018-10-01 16:53] VITALS: BP 133/64
[2018-10-01 20:00] VITALS: BP 139/66
[2018-10-01] MEDS: ACETAMINOPHEN 325 MG TABLET PO PRN (21:14)
[2018-10-01] MEDS: lisINopril 5 MG (PRINIVIL) TABLET PO SCH (21:14)
[2018-10-02] VITALS: BP 136/66
[2018-10-02] MEDS: RT-ALBUTEROL/IPRATROPIUM 3 ML (DUONEB) VIAL INH SCH ×6 (02:40→22:17)
[2018-10-02 04:00] VITALS: BP 125/60
[2018-10-02] MEDS: KCL 20 MEQ TAB (K-DUR) PO SCH (06:07)
[2018-10-02 06:28] LABS: HEMOGLOBIN 14.7 G/DL (13.3-17.7); MEAN PLATELET VOLUME 10.3 FL (7.4-10.4); RED BLOOD COUNT 5.16 10^6/uL (4.35-5.85); RED CELL DISTRIBUTION WIDTH 16.1 % (10.0-14.5); WHITE BLOOD COUNT 6.8 10^3/uL (4.3-11.0)
[2018-10-02 06:47] LABS: BUN/CREATININE RATIO 21; CALCIUM 9.3 MG/DL (8.5-10.1); CARBON DIOXIDE 34 MMOL/L (21-32); CHLORIDE 96 MMOL/L (98-107); CREATININE SERUM 0.76 MG/DL (0.60-1.30); GFR ESTIMATED > 60; GLUCOSE 82 MG/DL (70-105); SODIUM 139 MMOL/L (135-145)
--- NOTE | 2018-10-02 07:21 | Pulmonary Progress Note ---
Subjective Date Seen by a Provider: Oct 02, 2018 Time Seen by a Provider: 07:17 Subjective/Events-last exam Patient reports he is feeling a little better each day. CT yesterday indicates that his infiltrate is improving but still present. No overnight events reported. Sepsis Event Evaluation Height, Weight, BMI Height: 5'7.00" Weight: 233lbs. 0.3oz. 105.784421wc; 38.1 BMI Method:Stated Focused Exam Respiratory: Chest Non Tender, Lungs Clear, Decreased Breath Sounds, Other ( sats 94 on 4L o2 via nasal canula) Cardiovascular: Regular Rate, Rhythm, No Murmur Skin: normal color, warm/dry Exam Exam Vital Signs Date Time Temp Pulse Resp B/P (MAP) Pulse Ox O2 Delivery O2 Flow Rate FiO2 10/02/18 06:40 94 Nasal Cannula 4.00 10/02/18 04:00 97.3 63 20 125/60 (81) 93 Nasal Cannula 5.00 10/02/18 02:40 94 Nasal Cannula 4.00 10/02/18 00:00 96.9 66 20 136/66 (89) 93 Nasal Cannula 5.00 10/01/18 22:36 96 Nasal Cannula 4.00 10/01/18 20:00 97.9 70 18 139/66 (90) 92 Nasal Cannula 3.00 10/01/18 20:00 Nasal Cannula 4.00 10/01/18 19:05 86 Room Air 10/01/18 16:53 98.6 71 20 133/64 (87) 94 Nasal Cannula 3.00 10/01/18 14:57 93 Nasal Cannula 4.00 10/01/18 13:00 73 10/01/18 12:00 97.4 78 18 146/70 (95) 95 Nasal Cannula 5.00 10/01/18 10:59 92 Nasal Cannula 4.00 10/01/18 08:00 Nasal Cannula 5.00 10/01/18 08:00 97.6 72 18 140/66 (90) 93 Nasal Cannula 5.00 I & O 10/02/18 07:00 Intake Total 1220 ml Output Total 2300 ml Balance -1080 ml Height & Weight Height: 5'7.00" Weight: 233lbs. 0.3oz. 105.050931pv; 38.1 BMI Method:Stated General Appearance: No Apparent Distress, WD/WN HEENT: PERRL/EOMI, Moist Mucous Membranes Neck: Full Range of Motion, Normal Inspection, Non Tender, Supple Respiratory: Chest Non Tender, Lungs Clear, No Accessory Muscle Use, No Respiratory Distress, Decreased Breath Sounds, Other (on 4L O2 via nasal canula) Cardiovascular: Regular Rate, Rhythm, No Edema Capillary Refill: Less Than 3 Seconds Gastrointestinal: non tender, soft Extremity: Normal Capillary Refill, Normal Inspection, Normal Range of Motion, No Pedal Edema Neurologic/Psychiatric: Alert Skin: Normal Color, Warm/Dry Results Lab Laboratory Tests 10/01/18 09:15 10/02/18 06:05 Assessment/Plan Assessment/Plan Acute on chronic respiratory failure - Improved -Pt is doing well off of the ventilator -Sats 94 on 4L O2 via nasal canula Atelectasis with right pleural effusion -Continue Lasix -CT chest yesterday indicates condition is improving -continue to monitor --Pneumonia with sputum H influenza and strep -Sputum production has improved - IVF hep lock -ceftriaxone -Monitor close Acute renal failure -resolved Right wrist fracture -Ortho has been consulted BRAYAN VERDUZCO MED STUDENT Oct 02, 2018 07:21
--- NOTE | 2018-10-02 07:45 | Diagnostic Imaging Report ---
INDICATION: Lower respiratory infection. Portable chest 3:28 a.m. FINDINGS: Right EJ PICC line tip projects over the SVC. There is some consolidation at the right lung base with a small right effusion. Left lung is clear. IMPRESSION: Right basilar consolidation with effusion unchanged from previous day. Dictated by: Dictated on workstation # [id number]
--- NOTE | 2018-10-02 07:55 | Progress Note (SOAP) ---
Subjective Time Seen by a Provider: 07:53 Subjective/Events-last exam Patient voices no complaints today CAT scan of the chest looks much better with pneumonia but still persists. Orthopedics wants to see patient concerning his fracture when discharged. Objective Exam Vital Signs Date Time Temp Pulse Resp B/P (MAP) Pulse Ox O2 Delivery O2 Flow Rate FiO2 10/02/18 06:40 94 Nasal Cannula 4.00 10/02/18 04:00 97.3 63 20 125/60 (81) 93 Nasal Cannula 5.00 10/02/18 02:40 94 Nasal Cannula 4.00 10/02/18 00:00 96.9 66 20 136/66 (89) 93 Nasal Cannula 5.00 10/01/18 22:36 96 Nasal Cannula 4.00 10/01/18 20:00 97.9 70 18 139/66 (90) 92 Nasal Cannula 3.00 10/01/18 20:00 Nasal Cannula 4.00 10/01/18 19:05 86 Room Air 10/01/18 16:53 98.6 71 20 133/64 (87) 94 Nasal Cannula 3.00 10/01/18 14:57 93 Nasal Cannula 4.00 10/01/18 13:00 73 10/01/18 12:00 97.4 78 18 146/70 (95) 95 Nasal Cannula 5.00 10/01/18 10:59 92 Nasal Cannula 4.00 10/01/18 08:00 Nasal Cannula 5.00 10/01/18 08:00 97.6 72 18 140/66 (90) 93 Nasal Cannula 5.00 I & O 10/02/18 07:00 Intake Total 1720 ml Output Total 3175 ml Balance -1455 ml Capillary Refill : Less Than 3 SecondsLess Than 3 Seconds General Appearance: No Apparent Distress, WD/WN HEENT: Normal ENT Inspection Neck: Full Range of Motion, Normal Inspection Respiratory: No Accessory Muscle Use, No Respiratory Distress, Decreased Breath Sounds Cardiovascular: Regular Rate, Rhythm, No Murmur Gastrointestinal: non tender, soft Results Lab Laboratory Tests 10/01/18 09:15 10/02/18 06:05 Laboratory Tests 10/01/18 09:15: White Blood Count 7.5, Red Blood Count 5.38, Hemoglobin 15.2, Hematocrit 48, Mean Corpuscular Volume 90, Mean Corpuscular Hemoglobin 28, Mean Corpuscular Hemoglobin Concent 31L, Red Cell Distribution Width 16.0H, Platelet Count 120L, Mean Platelet Volume 10.2, Sodium Level 140, Potassium Level 4.2, Chloride Level 100, Carbon Dioxide Level 31, Anion Gap 9, Blood Urea Nitrogen 15, Creatinine 0.78, Estimat Glomerular Filtration Rate > 60, BUN/Creatinine Ratio 19, Glucose Level 115H, Calcium Level 9.4 10/02/18 06:05: White Blood Count 6.8, Red Blood Count 5.16, Hemoglobin 14.7, Hematocrit 46, Mean Corpuscular Volume 90, Mean Corpuscular Hemoglobin 29, Mean Corpuscular Hemoglobin Concent 32, Red Cell Distribution Width 16.1H, Platelet Count 112L, Mean Platelet Volume 10.3, Sodium Level 139, Potassium Level 4.0, Chloride Level 96L, Carbon Dioxide Level 34H, Anion Gap 9, Blood Urea Nitrogen 16, Creatinine 0.76, Estimat Glomerular Filtration Rate > 60, BUN/Creatinine Ratio 21, Glucose Level 82, Calcium Level 9.3 Microbiology 09/24/18 Blood Culture - Final, Complete No growth 09/25/18 MRSA Screen - Final, Complete MRSA not isolated Assessment/Plan Assessment/Plan Assess & Plan/Chief Complaint Pneumonia. Acute and chronic respiratory failure. Renal insufficiency back to normal. Hypotension better going off Levophed. Pneumonia on x-ray looks worse than yesterday. Congestive heart failure. . 09/29/18. Pneumonia. Acute and chronic respiratory failure. MRSA. Sputum H influenza and strep. CHF. COPD. Hypertension. Bipolar. . 09/30/18. Pneumonia. Acute and chronic respiratory failure. MRSA. Sputum H influenza and strep. CHF. COPD. Tobacco isn't. Hypertension. Bipolar. Hypomagnesemia. Thrombocytopenia. . 10/01/18. Pneumonia. Acute and chronic respiratory failure. Renal insufficiency. Hypotension. Patient comfortable and doing better. right wrist fracture. . 10/02/18. Pneumonia resolving. Acute and chronic respiratory failure. Hypertension. Right wrist fracture orthopedics to see when discharged Clinical Quality Measures Admission Status Admission Dx Acute and chronic respiratory failure. Pneumonia. Right sided pleural effusion. Hypotension. Acute renal failure. Fractured wrist. Tobacco usage. Hep C. COPD. Persistent smoking noncompliant DVT/VTE Risk/Contraindication: Risk Factor Score Per Nursin RFS Level Per Nursing on Admit: 4+=Very High GELLENDER,ART A DO Oct 02, 2018 07:55
[2018-10-02 08:37] VITALS: BP 129/76
[2018-10-02] MEDS: clonazePAM 0.5 MG (KlonoPIN) TAB PO SCH ×2 (08:55→20:56)
[2018-10-02] MEDS: meTOprolol TARTRATE 50 MG (LOPRESSOR) TAB PO SCH ×3 (08:55→20:56)
[2018-10-02] MEDS: DIVALPROX SPRINKLE 125 MG (DEPAKOTE) CAP PO SCH ×3 (08:55→20:56)
[2018-10-02] MEDS: ASPIRIN E.C. 81 MG (ECOTRIN) TAB PO SCH (08:55)
[2018-10-02] MEDS: ARIPIPRAZOLE 10 MG (ABILIFY) TAB PO SCH (08:55)
[2018-10-02] MEDS: PANTOPRAZOLE 40 MG (PROTONIX) TAB PO SCH (08:55)
[2018-10-02] MEDS: FUROSEMIDE 40 MG (LASIX) TAB PO SCH (08:55)
--- NOTE | 2018-10-02 09:56 | Progress Note-Cardiology ---
Cardiology SOAP Progress Note Subjective: No c/o CP or palpitations. Feels breathing has improved. Wants to go home. Objective: I&O/Vital Signs 10/02/18 10/02/18 10/02/18 10/02/18 04:00 06:40 08:37 09:00 Temp 97.3 96.8 Pulse 63 63 Resp 20 22 B/P (MAP) 125/60 (81) 129/76 (93) Pulse Ox 93 94 93 O2 Delivery Nasal Cannula Nasal Cannula Nasal Cannula Nasal Cannula O2 Flow Rate 5.00 4.00 3.00 4.00 10/02/18 10/02/18 10/02/18 10/02/18 10:00 12:29 14:02 14:50 Temp 97.0 Pulse 67 98 Resp 18 B/P (MAP) 146/82 (103) Pulse Ox 94 94 94 96 O2 Delivery Nasal Cannula Nasal Cannula Nasal Cannula O2 Flow Rate 4.00 5.00 4.00 FiO2 36 10/02/18 00:00 Intake Total 1220 ml Output Total 2300 ml Balance -1080 ml Weight (Pounds): 233 Weight (Ounces): 0.3 Weight (Calculated Kilograms): 105.910065 Constitutional: AAO x 3, well-developed, well-nourished Respiratory: No accessory muscle use, No respiratory distress; chest expansion is symmetric, chest is bilaterally symmetric, rhonchi (scattered), other (fair bilat air entry) Cardiovascular: regular rate-rhythm, S1 and S2, systolic murmur Gastrointestional: No tender; soft; No guarding; audible bowel sounds Extremities: other (mild bilat LE edema); No clubbing, No cyanosis Neurologic/Psychiatric: other (awake, oriented, able to move all limbs equally) Skin: normal color, warm/dry Results/Procedures: Labs Laboratory Tests 10/02/18 06:05: White Blood Count 6.8, Red Blood Count 5.16, Hemoglobin 14.7, Hematocrit 46, Mean Corpuscular Volume 90, Mean Corpuscular Hemoglobin 29, Mean Corpuscular Hemoglobin Concent 32, Red Cell Distribution Width 16.1H, Platelet Count 112L, Mean Platelet Volume 10.3, Sodium Level 139, Potassium Level 4.0, Chloride Level 96L, Carbon Dioxide Level 34H, Anion Gap 9, Blood Urea Nitrogen 16, Creatinine 0.76, Estimat Glomerular Filtration Rate > 60, BUN/Creatinine Ratio 21, Glucose Level 82, Calcium Level 9.3, Magnesium Level 1.8 Microbiology 09/24/18 Blood Culture - Final, Complete No growth 09/25/18 MRSA Screen - Final, Complete MRSA not isolated Laboratory Tests 10/01/18 09:15 10/02/18 06:05 A/P: Assessment: Acute respiratory failure, multi-factorial (reasons noted below). Now off vent Pneumonia - management per Pulmonary and Medical services Acute on chronic diastolic CHF - clinically improving Acute renal failure likely d/t intravascular vol depletion - resolved S/P fall (09-24-18) - not reported as syncopal Right wrist facture s/p fall on 09-24-18 Cardiac cath of May 2017: angiographically mild CAD. LVEF 55-60%. LVEDP at the top limit of normal. No significant MR Echo of 09/25/18: LVEF 60-65%, PASP approx 25 mmHg Abdominal u/s of May 2017: the gallbladder is most likely filled with calculi - being followed by Dr. Narayan No evidence of AAA on abd ao screening scan of 04/18/18 Seg pressures of 04/08/18 did not show evidence of significant obstructive PAD COPD Fam h/o early CAD (father to [place] in his early 50s) Chronic tobacco use Hypertension Bipolar disorder Chronic mild, intermittent leg swelling H/o chronic impaired (somewhat slurred) speech Plan: Complex management due to multisystem involvement (pulmonary, renal, cardiac) Continue current regimen Monitor lab Physician Assessment Physician Assessment Shortness of breath is better, no cp or palp or syncope Wishes to go home Lungs: fair to good bilat air entry, diminished at the bases Cor: reg Ext: no c/c; mild edema A&R * As documented in our note above that I updated * Ok for d/c from cardiac standpoint. Please continue current meds MENG PACHECO [employer] Oct 02, 2018 09:55 ERIN HUTCHINSON MD FACP FAC CCDS Oct 02, 2018 15:35
[2018-10-02 12:29] VITALS: BP 146/82
[2018-10-02 15:45] VITALS: BP 154/74
[2018-10-02 20:30] VITALS: BP 139/71
[2018-10-02] MEDS: lisINopril 5 MG (PRINIVIL) TABLET PO SCH (20:56)
[2018-10-03] VITALS: BP 127/63
[2018-10-03] MEDS: RT-ALBUTEROL/IPRATROPIUM 3 ML (DUONEB) VIAL INH SCH ×3 (02:20→12:56)
[2018-10-03 04:00] VITALS: BP 125/64
[2018-10-03] MEDS: KCL 20 MEQ TAB (K-DUR) PO SCH (06:14)
[2018-10-03 06:22] LABS: HEMOGLOBIN 15.4 G/DL (13.3-17.7); RED BLOOD COUNT 5.35 10^6/uL (4.35-5.85); RED CELL DISTRIBUTION WIDTH 15.8 % (10.0-14.5); WHITE BLOOD COUNT 7.7 10^3/uL (4.3-11.0)
[2018-10-03 06:44] LABS: BUN/CREATININE RATIO 21; CALCIUM 9.5 MG/DL (8.5-10.1); CARBON DIOXIDE 35 MMOL/L (21-32); CHLORIDE 95 MMOL/L (98-107); CREATININE SERUM 0.82 MG/DL (0.60-1.30); GFR ESTIMATED > 60; GLUCOSE 86 MG/DL (70-105); POTASSIUM 4.2 MMOL/L (3.6-5.0); SODIUM 139 MMOL/L (135-145)
--- NOTE | 2018-10-03 07:24 | Pulmonary Progress Note ---
Subjective Time Seen by a Provider: 07:23 Subjective/Events-last exam No complications noted. Sepsis Event Evaluation Height, Weight, BMI Height: 5'7.00" Weight: 233lbs. 0.3oz. 105.035670mx; 38.1 BMI Method:Stated Exam Exam Vital Signs Date Time Temp Pulse Resp B/P (MAP) Pulse Ox O2 Delivery O2 Flow Rate FiO2 10/03/18 04:00 98.7 87 20 125/64 (84) 94 Nasal Cannula 4.00 10/03/18 02:20 97 Nasal Cannula 4.00 10/03/18 00:00 98.9 69 20 127/63 (84) 94 Nasal Cannula 4.00 10/02/18 22:17 95 Nasal Cannula 4.00 10/02/18 20:30 98.8 72 20 139/71 (93) 92 Nasal Cannula 4.00 10/02/18 20:00 Nasal Cannula 4.00 10/02/18 18:56 90 Nasal Cannula 4.00 10/02/18 15:45 96.5 69 20 154/74 (100) 94 Nasal Cannula 4.00 10/02/18 14:50 96 Nasal Cannula 4.00 10/02/18 14:02 98 94 36 10/02/18 12:29 97.0 67 18 146/82 (103) 94 Nasal Cannula 5.00 10/02/18 10:00 94 Nasal Cannula 4.00 10/02/18 09:00 Nasal Cannula 4.00 10/02/18 08:37 96.8 63 22 129/76 (93) 93 Nasal Cannula 3.00 I & O 10/03/18 07:00 Intake Total 1710 ml Output Total 1775 ml Balance -65 ml Height & Weight Height: 5'7.00" Weight: 233lbs. 0.3oz. 105.915688ks; 38.1 BMI Method:Stated General Appearance: No Apparent Distress, WD/WN HEENT: Normal ENT Inspection Neck: Full Range of Motion, Normal Inspection Respiratory: No Accessory Muscle Use, No Respiratory Distress, Decreased Breath Sounds Cardiovascular: Regular Rate, Rhythm, No Murmur Capillary Refill: Less Than 3 Seconds Gastrointestinal: non tender, soft Extremity: Normal Capillary Refill, Normal Inspection, Normal Range of Motion, No Pedal Edema Neurologic/Psychiatric: Alert Skin: Normal Color, Warm/Dry Results Lab Laboratory Tests 10/01/18 09:15 10/02/18 06:05 10/03/18 06:10 Assessment/Plan Assessment/Plan Acute on chronic respiratory failure - Improved -Sats 94 on 4L O2 via nasal canula -Titrate as tolerated Atelectasis with right pleural effusion -Continue Lasix -CT chest yesterday indicates condition is improving -continue to monitor --Pneumonia with sputum H influenza and strep -ceftriaxone - change to Omnicef -Monitor close Acute renal failure -resolved Right wrist fracture -Ortho has been consulted PT is ok from pulmonary standpoint for discharge. KEYONA EVANS DO Oct 03, 2018 07:24
--- NOTE | 2018-10-03 07:59 | Progress Note (SOAP) ---
Subjective Time Seen by a Provider: 07:57 Subjective/Events-last exam Patient is doing good today. Patient feeling better. Patient having no problems breathing. Discharge today back to the shelter Objective Exam Vital Signs Date Time Temp Pulse Resp B/P (MAP) Pulse Ox O2 Delivery O2 Flow Rate FiO2 10/03/18 07:27 93 Nasal Cannula 4.00 10/03/18 04:00 98.7 87 20 125/64 (84) 94 Nasal Cannula 4.00 10/03/18 02:20 97 Nasal Cannula 4.00 10/03/18 00:00 98.9 69 20 127/63 (84) 94 Nasal Cannula 4.00 10/02/18 22:17 95 Nasal Cannula 4.00 10/02/18 20:30 98.8 72 20 139/71 (93) 92 Nasal Cannula 4.00 10/02/18 20:00 Nasal Cannula 4.00 10/02/18 18:56 90 Nasal Cannula 4.00 10/02/18 15:45 96.5 69 20 154/74 (100) 94 Nasal Cannula 4.00 10/02/18 14:50 96 Nasal Cannula 4.00 10/02/18 14:02 98 94 36 10/02/18 12:29 97.0 67 18 146/82 (103) 94 Nasal Cannula 5.00 10/02/18 10:00 94 Nasal Cannula 4.00 10/02/18 09:00 Nasal Cannula 4.00 10/02/18 08:37 96.8 63 22 129/76 (93) 93 Nasal Cannula 3.00 I & O 10/03/18 07:00 Intake Total 1710 ml Output Total 1775 ml Balance -65 ml Capillary Refill : Less Than 3 SecondsLess Than 3 Seconds General Appearance: No Apparent Distress, WD/WN HEENT: Normal ENT Inspection Neck: Full Range of Motion, Normal Inspection Respiratory: No Accessory Muscle Use, No Respiratory Distress, Decreased Breath Sounds Cardiovascular: Regular Rate, Rhythm, No Murmur Gastrointestinal: non tender, soft Results Lab Laboratory Tests 10/03/18 06:10 Laboratory Tests 10/03/18 06:10: White Blood Count 7.7, Red Blood Count 5.35, Hemoglobin 15.4, Hematocrit 48, Mean Corpuscular Volume 89, Mean Corpuscular Hemoglobin 29, Mean Corpuscular Hemoglobin Concent 32, Red Cell Distribution Width 15.8H, Platelet Count 120L, Mean Platelet Volume 11.0H, Sodium Level 139, Potassium Level 4.2, Chloride Level 95L, Carbon Dioxide Level 35H, Anion Gap 9, Blood Urea Nitrogen 17, Creatinine 0.82, Estimat Glomerular Filtration Rate > 60, BUN/Creatinine Ratio 21, Glucose Level 86, Calcium Level 9.5, B-Type Natriuretic Peptide 162.5H, Triglycerides Level 167H Microbiology 09/24/18 Blood Culture - Final, Complete No growth 09/25/18 MRSA Screen - Final, Complete MRSA not isolated Assessment/Plan Assessment/Plan Assess & Plan/Chief Complaint Pneumonia. Acute and chronic respiratory failure. Renal insufficiency back to normal. Hypotension better going off Levophed. Pneumonia on x-ray looks worse than yesterday. Congestive heart failure. . 09/29/18. Pneumonia. Acute and chronic respiratory failure. MRSA. Sputum H influenza and strep. CHF. COPD. Hypertension. Bipolar. . 09/30/18. Pneumonia. Acute and chronic respiratory failure. MRSA. Sputum H influenza and strep. CHF. COPD. Tobacco isn't. Hypertension. Bipolar. Hypomagnesemia. Thrombocytopenia. . 10/01/18. Pneumonia. Acute and chronic respiratory failure. Renal insufficiency. Hypotension. Patient comfortable and doing better. right wrist fracture. . 10/02/18. Pneumonia resolving. Acute and chronic respiratory failure. Hypertension.. . . Right wrist fracture orthopedics to see when discharged. . 10/03/18. Pneumonia. Acute and chronic respiratory failure. Hypertension. Right wrist fractures. Patient be discharged today. Patient is seen by orthopedic Clinical Quality Measures Admission Status Admission Dx Acute and chronic respiratory failure. Pneumonia. Right sided pleural effusion. Hypotension. Acute renal failure. Fractured wrist. Tobacco usage. Hep C. COPD. Persistent smoking noncompliant DVT/VTE Risk/Contraindication: Risk Factor Score Per Nursin RFS Level Per Nursing on Admit: 4+=Very High ART CASANOVA DO Oct 03, 2018 07:59
[2018-10-03 08:00] VITALS: BP 132/75
[2018-10-03] MEDS ORDERED: CEFD300C3 PO (08:01)
--- NOTE | 2018-10-03 08:05 | D/C HH Face to Face Order ---
D/C Face to Face Orders Instructions for Patient Via [facility], Patient Instructions/FollowUp: To make appointment with Dr. Cadet for fractures of wrist. 2 office next Saturday Physician to follow Patient: Yes Discharge Diet for Home: Regular Diet Patient Data-Allergies,Ht & Wt Patient Allergies: Coded Allergies: No Known Drug Allergies (Unverified , 12/07/16) Height (Feet): 5 Height (Inches): 7.00 Weight (Pounds): 233 Weight (Ounces): 0.3 Home Health Need/Face to Face Date of Face to Face: Oct 03, 2018 Clinical Findings: Generalized weakness and fatigue I have seen Pt [id number]: Yes Discharged To: [facility] Diagnosis/Conditions: Pneumonia Patient is Homebound due to: CognItive deficits Homebound Status Due to the above stated illness, injury or surgical procedure (medical condition or diagnosis) and associated clinical findings, the patient is homebound because of his/her inability to leave home except with aid of a supportive device and/or person AND leaving the home requires a considerable and taxing effort or is medically contraindicated. Pt req the following assistanc: Aid of another person Home Health Infusion Therapy Line Start Date: Sep 24, 2018 Line Start Time: 2025 Line Type: Central Line Site Location: [facility] Certify Stmt I certify that this patient is under my care and that I, a nurse practitioner or a physician; a radiology practitioner assistant working with me, had a face to face encounter that - meets the physician face to face encounter requirements with this patient as dated. ART CASANOVA DO Oct 03, 2018 08:05
[2018-10-03] MEDS ORDERED: CEFDINIR 300 MG (OMNICEF) CAP PO SCH (09:00)
[2018-10-03] MEDS: ARIPIPRAZOLE 10 MG (ABILIFY) TAB PO SCH (09:18)
[2018-10-03] MEDS: BENZONATATE 100 MG (TESSALON) CAPSULE PO PRN (09:18)
[2018-10-03] MEDS: PANTOPRAZOLE 40 MG (PROTONIX) TAB PO SCH (09:18)
[2018-10-03] MEDS: meTOprolol TARTRATE 50 MG (LOPRESSOR) TAB PO SCH (09:18)
[2018-10-03] MEDS: clonazePAM 0.5 MG (KlonoPIN) TAB PO SCH (09:18)
[2018-10-03] MEDS: ASPIRIN E.C. 81 MG (ECOTRIN) TAB PO SCH (09:19)
[2018-10-03] MEDS: DIVALPROX SPRINKLE 125 MG (DEPAKOTE) CAP PO SCH (09:19)
[2018-10-03] MEDS: FUROSEMIDE 40 MG (LASIX) TAB PO SCH (09:19)
--- NOTE | 2018-10-03 13:15 | Progress Note-Cardiology ---
Cardiology SOAP Progress Note Subjective: Continues to feel better Shortness of breath continues to improve No cp or palp or syncope Wishes to go [place] Objective: I&O/Vital Signs 10/03/18 10/03/18 10/03/18 10/03/18 02:20 04:00 07:27 08:00 Temp 98.7 97.4 Pulse 87 71 Resp 20 18 B/P (MAP) 125/64 (84) 132/75 (94) Pulse Ox 97 94 93 90 O2 Delivery Nasal Cannula Nasal Cannula Nasal Cannula Nasal Cannula O2 Flow Rate 4.00 4.00 4.00 4.00 10/03/18 00:00 Intake Total 1690 ml Output Total 1775 ml Balance -85 ml Weight (Pounds): 233 Weight (Ounces): 0.3 Weight (Calculated Kilograms): 105.296202 Constitutional: AAO x 3, well-developed, well-nourished Respiratory: No accessory muscle use, No respiratory distress; chest expansion is symmetric, chest is bilaterally symmetric, rhonchi (scattered), other (fair bilat air entry) Cardiovascular: regular rate-rhythm, S1 and S2, systolic murmur Gastrointestional: No tender; soft; No guarding; audible bowel sounds Extremities: other (mild bilat LE edema); No clubbing, No cyanosis Neurologic/Psychiatric: other (awake, oriented, able to move all limbs equally) Skin: normal color, warm/dry Results/Procedures: Labs Laboratory Tests 10/03/18 06:10: White Blood Count 7.7, Red Blood Count 5.35, Hemoglobin 15.4, Hematocrit 48, Mean Corpuscular Volume 89, Mean Corpuscular Hemoglobin 29, Mean Corpuscular Hemoglobin Concent 32, Red Cell Distribution Width 15.8H, Platelet Count 120L, Mean Platelet Volume 11.0H, Sodium Level 139, Potassium Level 4.2, Chloride Level 95L, Carbon Dioxide Level 35H, Anion Gap 9, Blood Urea Nitrogen 17, Creatinine 0.82, Estimat Glomerular Filtration Rate > 60, BUN/Creatinine Ratio 21, Glucose Level 86, Calcium Level 9.5, B-Type Natriuretic Peptide 162.5H, Triglycerides Level 167H Microbiology 09/24/18 Blood Culture - Final, Complete No growth 09/25/18 MRSA Screen - Final, Complete MRSA not isolated Laboratory Tests 10/02/18 06:05 12/14/18 06:10 A/P: Assessment: Acute respiratory failure, multi-factorial (reasons noted below). Now off vent Pneumonia - management per Pulmonary and Medical services Acute on chronic diastolic CHF - clinically much improved Acute renal failure likely d/t intravascular vol depletion - resolved S/P fall (09-24-18) - not reported as syncopal Right wrist facture s/p fall on 09-24-18 Cardiac cath of May 2017: angiographically mild CAD. LVEF 55-60%. LVEDP at the top limit of normal. No significant MR Echo of 09/25/18: LVEF 60-65%, PASP approx 25 mmHg Abdominal u/s of May 2017: the gallbladder is most likely filled with calculi - being followed by Dr. Narayan No evidence of AAA on abd ao screening scan of 04/18/18 Seg pressures of 04/08/18 did not show evidence of significant obstructive PAD COPD Fam h/o early CAD (father to [place] in his early 50s) Chronic tobacco use Hypertension Bipolar disorder Chronic mild, intermittent leg swelling H/o chronic impaired (somewhat slurred) speech Plan: Continue current regimen Monitor lab Ok to d/c from card standpoint We recommend card f/u in 2 weeks of discharge ERIN HUTCHINSON MD FACP FAC CCDS Oct 03, 2018 13:14
--- NOTE | 2018-10-06 07:31 | Discharge Summary ---
Diagnosis/Chief Complaint Date of Admission Sep 24, 2018 at 21:46 Date of Discharge Oct 03, 2018 at 13:27 Discharge Time: 07:28 Discharge Diagnosis Acute and chronic respiratory failure with hypercapnia. Acute kidney failure. Acute on chronic diastolic congestive heart failure. Anxiety. Coronary artery disease. Bipolar. COPD. Dehydration. Thrombocytopenia. Hypotension. Nicotine dependence. Pleural effusion right. Pneumonia. Right wrist fracture Reason Hospital Visit Patient resident of [facility]. Patient has an abnormal pneumonia. Patient sent out to the emergency room. Patient fell and has a right wrist fracture. Patient is congestive heart failure. Patient on ventilator and unable to give history. Patient has a history of cocaine use, hepatitis C, COPD, and persistent smoking and will not stop smoking. Patient has low stats. Patient has pleural effusion. Patient has pneumonia. Patient transferred to ICU from emergency room Discharge Summary Procedures Patient on ventilator Consultations Cardiology, pulmonology. Orthopedics Discharge Physical Examination Allergies: Coded Allergies: No Known Drug Allergies (Unverified , 12/07/16) Vitals & I&Os Vital Signs Date Time Temp Pulse Resp B/P (MAP) Pulse Ox O2 Delivery O2 Flow Rate FiO2 10/03/18 08:00 97.4 71 18 132/75 (94) 90 Nasal Cannula 4.00 10/02/18 14:02 [address] Cadet to see patient outpatient for right wrist fracture Labs (last 24 hrs) Laboratory Tests 09/24/18 17:05: White Blood Count 11.6H, Red Blood Count 5.05, Hemoglobin 14.6, Hematocrit 48, Mean Corpuscular Volume 95, Mean Corpuscular Hemoglobin 29, Mean Corpuscular Hemoglobin Concent 31L, Red Cell Distribution Width 16.9H, Platelet Count 147, Mean Platelet Volume 11.3H, Neutrophils (%) (Auto) 66, Lymphocytes (%) (Auto) 20 , Monocytes (%) (Auto) 13H, Eosinophils (%) (Auto) 1, Basophils (%) (Auto) 0, Neutrophils # (Auto) 7.7, Lymphocytes # (Auto) 2.3, Monocytes # (Auto) 1.5H, Eosinophils # (Auto) 0.1, Basophils # (Auto) 0.0, Sodium Level 137, Potassium Level 5.8H, Chloride Level 94L, Carbon Dioxide Level 32, Anion Gap 11, Blood Urea Nitrogen 35H, Creatinine 1.52H, Estimat Glomerular Filtration Rate 47, BUN/ Creatinine Ratio 23, Glucose Level 117H, Calcium Level 8.7, Corrected Calcium 9.0, Total Bilirubin 0.6, Aspartate Amino Transf (AST/SGOT) 30, Alanine Aminotransferase (ALT/SGPT) 26, Alkaline Phosphatase 55, C-Reactive Protein High Sensitivity 1.68H, B-Type Natriuretic Peptide 1291.1H, Total Protein 7.3, Albumin 3.6 09/24/18 18:45: Lactic Acid Level 1.52 09/24/18 19:38: Blood Gas Puncture Site LEFT RADIAL, Blood Gas Patient Temperature 97.5, Arterial Blood pH 7.28*L, Arterial Blood Partial Pressure CO2 83*H, Arterial Blood Partial Pressure O2 74L, Arterial Blood HCO3 38H, Arterial Blood Total CO2 40.2H, Arterial Blood Oxygen Saturation 94, Arterial Blood Base Excess 10.6H , Jeff Test POSITIVE, Blood Gas Ventilator Setting NO, Blood Gas Inspired Oxygen 4.5 L 09/24/18 21:46: Lab Scanned Report Referred Lab Report 09/25/18 01:45: Blood Gas Puncture Site L RAD, Blood Gas Patient Temperature 96.6, Arterial Blood pH 7.36L, Arterial Blood Partial Pressure CO2 62H, Arterial Blood Partial Pressure O2 60L, Arterial Blood HCO3 35H, Arterial Blood Total CO2 36.9H, Arterial Blood Oxygen Saturation 92L, Arterial Blood Base Excess 9.1H, Jeff Test YES-POS, Blood Gas Ventilator Setting YES, Blood Gas Inspired Oxygen 50% 09/25/18 03:05: White Blood Count 11.1H, Red Blood Count 4.91, Hemoglobin 14.4, Hematocrit 46, Mean Corpuscular Volume 94, Mean Corpuscular Hemoglobin 29, Mean Corpuscular Hemoglobin Concent 31L, Red Cell Distribution Width 16.8H, Platelet Count 148, Mean Platelet Volume 10.6H, Neutrophils (%) (Auto) 92H, Lymphocytes (%) (Auto) 6L, Monocytes (%) (Auto) 2, Eosinophils (%) (Auto) 0, Basophils (%) (Auto) 0, Neutrophils # (Auto) 10.3H, Lymphocytes # (Auto) 0.6L, Monocytes # (Auto) 0.2, Eosinophils # (Auto) 0.0, Basophils # (Auto) 0.0, Neutrophils % (Manual) 90, Lymphocytes % (Manual) 4, Monocytes % (Manual) 3, Eosinophils % (Manual) 0, Basophils % (Manual) 0, Band Neutrophils 3, Polychromasia SLIGHT, Hypochromasia SLIGHT, Anisocytosis SLIGHT, Stomatocytes SLIGHT, Sodium Level 139, Potassium Level 4.9, Chloride Level 97L, Carbon Dioxide Level 29, Anion Gap 13, Blood Urea Nitrogen 30H, Creatinine 1.30, Estimat Glomerular Filtration Rate 56, BUN/ Creatinine Ratio 23, Glucose Level 186H, Calcium Level 7.9L, Corrected Calcium 8.6, Phosphorus Level 2.9, Magnesium Level 1.9, Total Bilirubin 1.0, Aspartate Amino Transf (AST/SGOT) 21, Alanine Aminotransferase (ALT/SGPT) 19, Alkaline Phosphatase 48, Total Protein 6.3L, Albumin 3.1L, Triglycerides Level 113 09/25/18 12:03: Glucometer 131H 09/25/18 17:35: Glucometer 133H 09/26/18 00:20: Glucometer 130H 09/26/18 03:30: White Blood Count 9.8, Red Blood Count 5.02, Hemoglobin 14.4, Hematocrit 47, Mean Corpuscular Volume 93, Mean Corpuscular Hemoglobin 29, Mean Corpuscular Hemoglobin Concent 31L, Red Cell Distribution Width 17.0H, Platelet Count 131, Mean Platelet Volume 10.9H, Neutrophils (%) (Auto) 76H, Lymphocytes (%) (Auto) 15, Monocytes (%) (Auto) 9, Eosinophils (%) (Auto) 0, Basophils (%) (Auto) 0, Neutrophils # (Auto) 7.4, Lymphocytes # (Auto) 1.5, Monocytes # (Auto) 0.8, Eosinophils # (Auto) 0.0, Basophils # (Auto) 0.0, Sodium Level 141, Potassium Level 4.6, Chloride Level 101, Carbon Dioxide Level 30, Anion Gap 10, Blood Urea Nitrogen 23H, Creatinine 0.89, Estimat Glomerular Filtration Rate > 60, BUN /Creatinine Ratio 26, Glucose Level 130H, Calcium Level 7.9L, Phosphorus Level 2.2L, Magnesium Level 1.7L 09/26/18 03:45: Blood Gas Puncture Site LEFT RADIAL, Blood Gas Patient Temperature 97.9, Arterial Blood pH 7.40, Arterial Blood Partial Pressure CO2 55H, Arterial Blood Partial Pressure O2 80, Arterial Blood HCO3 33H, Arterial Blood Total CO2 35.1H , Arterial Blood Oxygen Saturation 97, Arterial Blood Base Excess 8.4H, Jeff Test POSITIVE, Blood Gas Ventilator Setting YES, Blood Gas Inspired Oxygen 50% 09/26/18 14:25: Glucometer 88 09/26/18 18:25: Glucometer 81 09/26/18 23:37: Glucometer 89 09/27/18 03:20: White Blood Count 7.8, Red Blood Count 4.99, Hemoglobin 14.6, Hematocrit 46, Mean Corpuscular Volume 92, Mean Corpuscular Hemoglobin 29, Mean Corpuscular Hemoglobin Concent 32, Red Cell Distribution Width 17.0H, Platelet Count 132, Mean Platelet Volume 9.8, Neutrophils (%) (Auto) 72, Lymphocytes (%) (Auto) 18, Monocytes (%) (Auto) 10, Eosinophils (%) (Auto) 0, Basophils (%) (Auto) 0, Neutrophils # (Auto) 5.6, Lymphocytes # (Auto) 1.4, Monocytes # (Auto) 0.8, Eosinophils # (Auto) 0.0, Basophils # (Auto) 0.0, Sodium Level 141, Potassium Level 4.8, Chloride Level 103, Carbon Dioxide Level 30, Anion Gap 8, Blood Urea Nitrogen 16, Creatinine 0.91, Estimat Glomerular Filtration Rate > 60, BUN/ Creatinine Ratio 18, Glucose Level 85, Calcium Level 7.6L, Phosphorus Level 2.8 , Magnesium Level 1.5L, B-Type Natriuretic Peptide 220.9H, Triglycerides Level 178H 09/27/18 03:35: Blood Gas Puncture Site LEFT RADIAL, Blood Gas Patient Temperature 98.7, Arterial Blood pH 7.39, Arterial Blood Partial Pressure CO2 56H, Arterial Blood Partial Pressure O2 76L, Arterial Blood HCO3 33H, Arterial Blood Total CO2 34.6H , Arterial Blood Oxygen Saturation 95, Arterial Blood Base Excess 7.8H, Jeff Test POSTIVIE, Blood Gas Ventilator Setting YES, Blood Gas Inspired Oxygen 50% VENT 09/27/18 12:25: Glucometer 94 09/27/18 18:44: Glucometer 77 09/28/18 04:00: White Blood Count 6.5, Red Blood Count 5.26, Hemoglobin 15.1, Hematocrit 47, Mean Corpuscular Volume 90, Mean Corpuscular Hemoglobin 29, Mean Corpuscular Hemoglobin Concent 32, Red Cell Distribution Width 16.3H, Platelet Count 127L, Mean Platelet Volume 9.6, Neutrophils (%) (Auto) 64, Lymphocytes (%) (Auto) 21, Monocytes (%) (Auto) 14H, Eosinophils (%) (Auto) 1, Basophils (%) (Auto) 0, Neutrophils # (Auto) 4.2, Lymphocytes # (Auto) 1.4, Monocytes # (Auto) 0.9, Eosinophils # (Auto) 0.1, Basophils # (Auto) 0.0, Sodium Level 138, Potassium Level 4.8, Chloride Level 100, Carbon Dioxide Level 27, Anion Gap 11, Blood Urea Nitrogen 14, Creatinine 0.93, Estimat Glomerular Filtration Rate > 60, BUN/ Creatinine Ratio 15, Glucose Level 88, Calcium Level 8.5, Phosphorus Level 3.7, Magnesium Level 1.9 09/28/18 04:51: Blood Gas Puncture Site L RAD, Blood Gas Patient Temperature 98.3, Arterial Blood pH 7.39, Arterial Blood Partial Pressure CO2 52H, Arterial Blood Partial Pressure O2 81, Arterial Blood HCO3 31H, Arterial Blood Total CO2 32.9H, Arterial Blood Oxygen Saturation 97, Arterial Blood Base Excess 6.4H, Jeff Test YES-POS, Blood Gas Ventilator Setting YES, Blood Gas Inspired Oxygen 55% 09/28/18 09:30: Vancomycin Level Trough 37.6*H 09/28/18 12:30: Vancomycin Level Trough 32.8*H 09/28/18 12:43: Glucometer 66L 09/28/18 18:27: Glucometer 101 09/28/18 20:40: Vancomycin Level Trough 20.7H 09/29/18 02:20: Glucometer 200H 09/29/18 03:35: White Blood Count 6.9, Red Blood Count 5.16, Hemoglobin 14.9, Hematocrit 46, Mean Corpuscular Volume 90, Mean Corpuscular Hemoglobin 29, Mean Corpuscular Hemoglobin Concent 32, Red Cell Distribution Width 16.8H, Platelet Count 135, Mean Platelet Volume 9.9, Neutrophils (%) (Auto) 59, Lymphocytes (%) (Auto) 22, Monocytes (%) (Auto) 18H, Eosinophils (%) (Auto) 1, Basophils (%) (Auto) 0, Neutrophils # (Auto) 4.1, Lymphocytes # (Auto) 1.5, Monocytes # (Auto) 1.2H, Eosinophils # (Auto) 0.1, Basophils # (Auto) 0.0, Sodium Level 143, Potassium Level 4.4, Chloride Level 103, Carbon Dioxide Level 28, Anion Gap 12, Blood Urea Nitrogen 13, Creatinine 0.94, Estimat Glomerular Filtration Rate > 60, BUN/ Creatinine Ratio 14, Glucose Level 79, Calcium Level 9.2, Phosphorus Level 3.5, Magnesium Level 1.7L, Triglycerides Level 123 09/30/18 05:35: White Blood Count 7.0, Red Blood Count 5.27, Hemoglobin 14.8, Hematocrit 47, Mean Corpuscular Volume 90, Mean Corpuscular Hemoglobin 28, Mean Corpuscular Hemoglobin Concent 31L, Red Cell Distribution Width 16.1H, Platelet Count 113L, Mean Platelet Volume 9.9, Neutrophils (%) (Auto) 58, Lymphocytes (%) (Auto) 24, Monocytes (%) (Auto) 16H, Eosinophils (%) (Auto) 3, Basophils (%) (Auto) 0, Neutrophils # (Auto) 4.0, Lymphocytes # (Auto) 1.6, Monocytes # (Auto) 1.1H, Eosinophils # (Auto) 0.2, Basophils # (Auto) 0.0, Sodium Level 140, Potassium Level 4.2, Chloride Level 99, Carbon Dioxide Level 30, Anion Gap 11, Blood Urea Nitrogen 14, Creatinine 0.81, Estimat Glomerular Filtration Rate > 60, BUN/ Creatinine Ratio 17, Glucose Level 91, Calcium Level 9.2, Phosphorus Level 3.0, Magnesium Level 1.7L 09/30/18 07:10: Vancomycin Level Trough 15.7 10/01/18 01:40: Triglycerides Level 163H 10/01/18 09:15: White Blood Count 7.5, Red Blood Count 5.38, Hemoglobin 15.2, Hematocrit 48, Mean Corpuscular Volume 90, Mean Corpuscular Hemoglobin 28, Mean Corpuscular Hemoglobin Concent 31L, Red Cell Distribution Width 16.0H, Platelet Count 120L, Mean Platelet Volume 10.2, Sodium Level 140, Potassium Level 4.2, Chloride Level 100, Carbon Dioxide Level 31, Anion Gap 9, Blood Urea Nitrogen 15, Creatinine 0.78, Estimat Glomerular Filtration Rate > 60, BUN/Creatinine Ratio 19, Glucose Level 115H, Calcium Level 9.4 10/02/18 06:05: White Blood Count 6.8, Red Blood Count 5.16, Hemoglobin 14.7, Hematocrit 46, Mean Corpuscular Volume 90, Mean Corpuscular Hemoglobin 29, Mean Corpuscular Hemoglobin Concent 32, Red Cell Distribution Width 16.1H, Platelet Count 112L, Mean Platelet Volume 10.3, Sodium Level 139, Potassium Level 4.0, Chloride Level 96L, Carbon Dioxide Level 34H, Anion Gap 9, Blood Urea Nitrogen 16, Creatinine 0.76, Estimat Glomerular Filtration Rate > 60, BUN/Creatinine Ratio 21, Glucose Level 82, Calcium Level 9.3, Magnesium Level 1.8 10/03/18 06:10: White Blood Count 7.7, Red Blood Count 5.35, Hemoglobin 15.4, Hematocrit 48, Mean Corpuscular Volume 89, Mean Corpuscular Hemoglobin 29, Mean Corpuscular Hemoglobin Concent 32, Red Cell Distribution Width 15.8H, Platelet Count 120L, Mean Platelet Volume 11.0H, Sodium Level 139, Potassium Level 4.2, Chloride Level 95L, Carbon Dioxide Level 35H, Anion Gap 9, Blood Urea Nitrogen 17, Creatinine 0.82, Estimat Glomerular Filtration Rate > 60, BUN/Creatinine Ratio 21, Glucose Level 86, Calcium Level 9.5, B-Type Natriuretic Peptide 162.5H, Triglycerides Level 167H Microbiology 09/24/18 Blood Culture - Final, Complete No growth 09/25/18 MRSA Screen - Final, Complete MRSA not isolated Pending Labs Microbiology Date/Time Source Procedure Growth Status 09/24/18 19:35 Peripheral Lt Hand Blood Culture - Final No growth Complete 09/24/18 18:45 Peripheral Left Wrist Blood Culture - Final Clostridium perfringens Staphylococcus haemolyticus Staphylococcus epidermidis See Report Complete 09/25/18 00:10 Nasal MRSA Screen - Final MRSA not isolated Complete 09/24/18 20:40 Sputum Endotracheal Gram Stain - Final Complete 09/24/18 20:40 Sputum Culture - Final Streptococcus pneumoniae Haemophilus influenza See Comments Usual upper respiratory nuno Complete Laboratory Tests 09/24/18 17:05: White Blood Count 11.6, Red Blood Count 5.05, Hemoglobin 14.6, Hematocrit 48, Mean Corpuscular Volume 95, Mean Corpuscular Hemoglobin 29, Mean Corpuscular Hemoglobin Concent 31, Red Cell Distribution Width 16.9, Platelet Count 147, Mean Platelet Volume 11.3, Neutrophils (%) (Auto) 66, Lymphocytes (%) (Auto) 20 , Monocytes (%) (Auto) 13, Eosinophils (%) (Auto) 1, Basophils (%) (Auto) 0, Neutrophils # (Auto) 7.7, Lymphocytes # (Auto) 2.3, Monocytes # (Auto) 1.5, Eosinophils # (Auto) 0.1, Basophils # (Auto) 0.0, Sodium Level 137, Potassium Level 5.8, Chloride Level 94, Carbon Dioxide Level 32, Anion Gap 11, Blood Urea Nitrogen 35, Creatinine 1.52, Estimat Glomerular Filtration Rate 47, BUN/ Creatinine Ratio 23, Glucose Level 117, Calcium Level 8.7, Corrected Calcium 9.0 , Total Bilirubin 0.6, Aspartate Amino Transf (AST/SGOT) 30, Alanine Aminotransferase (ALT/SGPT) 26, Alkaline Phosphatase 55, C-Reactive Protein High Sensitivity 1.68, B-Type Natriuretic Peptide 1291.1, Total Protein 7.3, Albumin 3.6 09/24/18 18:45: Lactic Acid Level 1.52 09/24/18 19:38: Blood Gas Puncture Site LEFT RADIAL, Blood Gas Patient Temperature 97.5, Arterial Blood pH 7.28, Arterial Blood Partial Pressure CO2 83, Arterial Blood Partial Pressure O2 74, Arterial Blood HCO3 38, Arterial Blood Total CO2 40.2, Arterial Blood Oxygen Saturation 94, Arterial Blood Base Excess 10.6, Jeff Test POSITIVE, Blood Gas Ventilator Setting NO, Blood Gas Inspired Oxygen 4.5 L 09/24/18 21:46: Lab Scanned Report Referred Lab Report 09/25/18 01:45: Blood Gas Puncture Site L RAD, Blood Gas Patient Temperature 96.6, Arterial Blood pH 7.36, Arterial Blood Partial Pressure CO2 62, Arterial Blood Partial Pressure O2 60, Arterial Blood HCO3 35, Arterial Blood Total CO2 36.9, Arterial Blood Oxygen Saturation 92, Arterial Blood Base Excess 9.1, Jeff Test YES-POS, Blood Gas Ventilator Setting YES, Blood Gas Inspired Oxygen 50% 09/25/18 03:05: White Blood Count 11.1, Red Blood Count 4.91, Hemoglobin 14.4, Hematocrit 46, Mean Corpuscular Volume 94, Mean Corpuscular Hemoglobin 29, Mean Corpuscular Hemoglobin Concent 31, Red Cell Distribution Width 16.8, Platelet Count 148, Mean Platelet Volume 10.6, Neutrophils (%) (Auto) 92, Lymphocytes (%) (Auto) 6, Monocytes (%) (Auto) 2, Eosinophils (%) (Auto) 0, Basophils (%) (Auto) 0, Neutrophils # (Auto) 10.3, Lymphocytes # (Auto) 0.6, Monocytes # (Auto) 0.2, Eosinophils # (Auto) 0.0, Basophils # (Auto) 0.0, Neutrophils % (Manual) 90, Lymphocytes % (Manual) 4, Monocytes % (Manual) 3, Eosinophils % (Manual) 0, Basophils % (Manual) 0, Band Neutrophils 3, Polychromasia SLIGHT, Hypochromasia SLIGHT, Anisocytosis SLIGHT, Stomatocytes SLIGHT, Sodium Level 139, Potassium Level 4.9, Chloride Level 97, Carbon Dioxide Level 29, Anion Gap 13, Blood Urea Nitrogen 30, Creatinine 1.30, Estimat Glomerular Filtration Rate 56, BUN/ Creatinine Ratio 23, Glucose Level 186, Calcium Level 7.9, Corrected Calcium 8.6 , Phosphorus Level 2.9, Magnesium Level 1.9, Total Bilirubin 1.0, Aspartate Amino Transf (AST/SGOT) 21, Alanine Aminotransferase (ALT/SGPT) 19, Alkaline Phosphatase 48, Total Protein 6.3, Albumin 3.1, Triglycerides Level 113 09/25/18 12:03: Glucometer 131 09/25/18 17:35: Glucometer 133 09/26/18 00:20: Glucometer 130 09/26/18 03:30: White Blood Count 9.8, Red Blood Count 5.02, Hemoglobin 14.4, Hematocrit 47, Mean Corpuscular Volume 93, Mean Corpuscular Hemoglobin 29, Mean Corpuscular Hemoglobin Concent 31, Red Cell Distribution Width 17.0, Platelet Count 131, Mean Platelet Volume 10.9, Neutrophils (%) (Auto) 76, Lymphocytes (%) (Auto) 15 , Monocytes (%) (Auto) 9, Eosinophils (%) (Auto) 0, Basophils (%) (Auto) 0, Neutrophils # (Auto) 7.4, Lymphocytes # (Auto) 1.5, Monocytes # (Auto) 0.8, Eosinophils # (Auto) 0.0, Basophils # (Auto) 0.0, Sodium Level 141, Potassium Level 4.6, Chloride Level 101, Carbon Dioxide Level 30, Anion Gap 10, Blood Urea Nitrogen 23, Creatinine 0.89, Estimat Glomerular Filtration Rate > 60, BUN/ Creatinine Ratio 26, Glucose Level 130, Calcium Level 7.9, Phosphorus Level 2.2 , Magnesium Level 1.7 09/26/18 03:45: Blood Gas Puncture Site LEFT RADIAL, Blood Gas Patient Temperature 97.9, Arterial Blood pH 7.40, Arterial Blood Partial Pressure CO2 55, Arterial Blood Partial Pressure O2 80, Arterial Blood HCO3 33, Arterial Blood Total CO2 35.1, Arterial Blood Oxygen Saturation 97, Arterial Blood Base Excess 8.4, Jeff Test POSITIVE, Blood Gas Ventilator Setting YES, Blood Gas Inspired Oxygen 50% 09/26/18 14:25: Glucometer 88 09/26/18 18:25: Glucometer 81 09/26/18 23:37: Glucometer 89 09/27/18 03:20: White Blood Count 7.8, Red Blood Count 4.99, Hemoglobin 14.6, Hematocrit 46, Mean Corpuscular Volume 92, Mean Corpuscular Hemoglobin 29, Mean Corpuscular Hemoglobin Concent 32, Red Cell Distribution Width 17.0, Platelet Count 132, Mean Platelet Volume 9.8, Neutrophils (%) (Auto) 72, Lymphocytes (%) (Auto) 18, Monocytes (%) (Auto) 10, Eosinophils (%) (Auto) 0, Basophils (%) (Auto) 0, Neutrophils # (Auto) 5.6, Lymphocytes # (Auto) 1.4, Monocytes # (Auto) 0.8, Eosinophils # (Auto) 0.0, Basophils # (Auto) 0.0, Sodium Level 141, Potassium Level 4.8, Chloride Level 103, Carbon Dioxide Level 30, Anion Gap 8, Blood Urea Nitrogen 16, Creatinine 0.91, Estimat Glomerular Filtration Rate > 60, BUN/ Creatinine Ratio 18, Glucose Level 85, Calcium Level 7.6, Phosphorus Level 2.8, Magnesium Level 1.5, B-Type Natriuretic Peptide 220.9, Triglycerides Level 178 09/27/18 03:35: Blood Gas Puncture Site LEFT RADIAL, Blood Gas Patient Temperature 98.7, Arterial Blood pH 7.39, Arterial Blood Partial Pressure CO2 56, Arterial Blood Partial Pressure O2 76, Arterial Blood HCO3 33, Arterial Blood Total CO2 34.6, Arterial Blood Oxygen Saturation 95, Arterial Blood Base Excess 7.8, Jeff Test POSTIVIE, Blood Gas Ventilator Setting YES, Blood Gas Inspired Oxygen 50% VENT 09/27/18 12:25: Glucometer 94 09/27/18 18:44: Glucometer 77 09/28/18 04:00: White Blood Count 6.5, Red Blood Count 5.26, Hemoglobin 15.1, Hematocrit 47, Mean Corpuscular Volume 90, Mean Corpuscular Hemoglobin 29, Mean Corpuscular Hemoglobin Concent 32, Red Cell Distribution Width 16.3, Platelet Count 127, Mean Platelet Volume 9.6, Neutrophils (%) (Auto) 64, Lymphocytes (%) (Auto) 21, Monocytes (%) (Auto) 14, Eosinophils (%) (Auto) 1, Basophils (%) (Auto) 0, Neutrophils # (Auto) 4.2, Lymphocytes # (Auto) 1.4, Monocytes # (Auto) 0.9, Eosinophils # (Auto) 0.1, Basophils # (Auto) 0.0, Sodium Level 138, Potassium Level 4.8, Chloride Level 100, Carbon Dioxide Level 27, Anion Gap 11, Blood Urea Nitrogen 14, Creatinine 0.93, Estimat Glomerular Filtration Rate > 60, BUN/ Creatinine Ratio 15, Glucose Level 88, Calcium Level 8.5, Phosphorus Level 3.7, Magnesium Level 1.9 09/28/18 04:51: Blood Gas Puncture Site L RAD, Blood Gas Patient Temperature 98.3, Arterial Blood pH 7.39, Arterial Blood Partial Pressure CO2 52, Arterial Blood Partial Pressure O2 81, Arterial Blood HCO3 31, Arterial Blood Total CO2 32.9, Arterial Blood Oxygen Saturation 97, Arterial Blood Base Excess 6.4, Jeff Test YES-POS, Blood Gas Ventilator Setting YES, Blood Gas Inspired Oxygen 55% 09/28/18 09:30: Vancomycin Level Trough 37.6 09/28/18 12:30: Vancomycin Level Trough 32.8 09/28/18 12:43: Glucometer 66 09/28/18 18:27: Glucometer 101 09/28/18 20:40: Vancomycin Level Trough 20.7 09/29/18 02:20: Glucometer 200 09/29/18 03:35: White Blood Count 6.9, Red Blood Count 5.16, Hemoglobin 14.9, Hematocrit 46, Mean Corpuscular Volume 90, Mean Corpuscular Hemoglobin 29, Mean Corpuscular Hemoglobin Concent 32, Red Cell Distribution Width 16.8, Platelet Count 135, Mean Platelet Volume 9.9, Neutrophils (%) (Auto) 59, Lymphocytes (%) (Auto) 22, Monocytes (%) (Auto) 18, Eosinophils (%) (Auto) 1, Basophils (%) (Auto) 0, Neutrophils # (Auto) 4.1, Lymphocytes # (Auto) 1.5, Monocytes # (Auto) 1.2, Eosinophils # (Auto) 0.1, Basophils # (Auto) 0.0, Sodium Level 143, Potassium Level 4.4, Chloride Level 103, Carbon Dioxide Level 28, Anion Gap 12, Blood Urea Nitrogen 13, Creatinine 0.94, Estimat Glomerular Filtration Rate > 60, BUN/ Creatinine Ratio 14, Glucose Level 79, Calcium Level 9.2, Phosphorus Level 3.5, Magnesium Level 1.7, Triglycerides Level 123 09/30/18 05:35: White Blood Count 7.0, Red Blood Count 5.27, Hemoglobin 14.8, Hematocrit 47, Mean Corpuscular Volume 90, Mean Corpuscular Hemoglobin 28, Mean Corpuscular Hemoglobin Concent 31, Red Cell Distribution Width 16.1, Platelet Count 113, Mean Platelet Volume 9.9, Neutrophils (%) (Auto) 58, Lymphocytes (%) (Auto) 24, Monocytes (%) (Auto) 16, Eosinophils (%) (Auto) 3, Basophils (%) (Auto) 0, Neutrophils # (Auto) 4.0, Lymphocytes # (Auto) 1.6, Monocytes # (Auto) 1.1, Eosinophils # (Auto) 0.2, Basophils # (Auto) 0.0, Sodium Level 140, Potassium Level 4.2, Chloride Level 99, Carbon Dioxide Level 30, Anion Gap 11, Blood Urea Nitrogen 14, Creatinine 0.81, Estimat Glomerular Filtration Rate > 60, BUN/ Creatinine Ratio 17, Glucose Level 91, Calcium Level 9.2, Phosphorus Level 3.0, Magnesium Level 1.7 09/30/18 07:10: Vancomycin Level Trough 15.7 10/01/18 01:40: Triglycerides Level 163 10/01/18 09:15: White Blood Count 7.5, Red Blood Count 5.38, Hemoglobin 15.2, Hematocrit 48, Mean Corpuscular Volume 90, Mean Corpuscular Hemoglobin 28, Mean Corpuscular Hemoglobin Concent 31, Red Cell Distribution Width 16.0, Platelet Count 120, Mean Platelet Volume 10.2, Sodium Level 140, Potassium Level 4.2, Chloride Level 100, Carbon Dioxide Level 31, Anion Gap 9, Blood Urea Nitrogen 15, Creatinine 0.78, Estimat Glomerular Filtration Rate > 60, BUN/Creatinine Ratio 19, Glucose Level 115, Calcium Level 9.4 10/02/18 06:05: White Blood Count 6.8, Red Blood Count 5.16, Hemoglobin 14.7, Hematocrit 46, Mean Corpuscular Volume 90, Mean Corpuscular Hemoglobin 29, Mean Corpuscular Hemoglobin Concent 32, Red Cell Distribution Width 16.1, Platelet Count 112, Mean Platelet Volume 10.3, Sodium Level 139, Potassium Level 4.0, Chloride Level 96, Carbon Dioxide Level 34, Anion Gap 9, Blood Urea Nitrogen 16, Creatinine 0.76, Estimat Glomerular Filtration Rate > 60, BUN/Creatinine Ratio 21, Glucose Level 82, Calcium Level 9.3, Magnesium Level 1.8 10/03/18 06:10: White Blood Count 7.7, Red Blood Count 5.35, Hemoglobin 15.4, Hematocrit 48, Mean Corpuscular Volume 89, Mean Corpuscular Hemoglobin 29, Mean Corpuscular Hemoglobin Concent 32, Red Cell Distribution Width 15.8, Platelet Count 120, Mean Platelet Volume 11.0, Sodium Level 139, Potassium Level 4.2, Chloride Level 95, Carbon Dioxide Level 35, Anion Gap 9, Blood Urea Nitrogen 17, Creatinine 0.82, Estimat Glomerular Filtration Rate > 60, BUN/Creatinine Ratio 21, Glucose Level 86, Calcium Level 9.5, B-Type Natriuretic Peptide 162.5, Triglycerides Level 167 Laboratory Tests 09/24/18 17:05 09/25/18 03:05 09/26/18 03:30 09/27/18 03:20 09/28/18 04:00 09/29/18 03:35 09/30/18 05:35 10/01/18 09:15 10/02/18 06:05 10/03/18 06:10 Discharge Home Medications: Active Scripts Active Cefdinir 300 Mg Capsule 300 Mg PO BID 7 Days Reported Zofran (Ondansetron HCl) 4 Mg Tab 4 Mg PO Q4H PRN Refresh Tears (Carboxymethylcellulose Sodium) 15 Ml Drops 1 Drop OU Q4H PRN Clonazepam 0.5 Mg Tablet 0.5 Mg PO BID Carbamide Peroxide 15 Ml Drops 5 Drops EACH EAR Q12H PRN Divalproex Sodium 125 Mg Cap.sprink 125 Mg PO TID Daily Multiple Vitamin (Multivitamin) 1 Each Tablet 1 Tab PO DAILY Benzonatate 200 Mg Capsule 200 Mg PO Q8H PRN Symbicort 160-4.5 Mcg Inhaler (Budesonide/Formoterol Fumarate) 10.2 Gm Hfa.aer.ad 2 Puff IH BID Protonix (Pantoprazole Sodium) 40 Mg Tablet.dr 40 Mg PO DAILY Metoprolol Tartrate 25 Mg Tablet 25 Mg PO BID HOLD FOR SYSTOLIC BP < 100 Lisinopril 2.5 Mg Tablet 2.5 Mg PO HS Lexapro (Escitalopram Oxalate) 20 Mg Tablet 40 Mg PO DAILY TAKES 2 (20MG) TABLETS Lasix (Furosemide) 20 Mg Tablet 20 Mg PO DAILY Iprat-Albut 0.5-3(2.5) mg/3 ml (Ipratropium/Albuterol Sulfate) 3 Ml Ampul.neb 3 Ml NEB Q6H Aspirin EC (Aspirin) 81 Mg Tablet.dr 81 Mg PO DAILY Tylenol (Acetaminophen) 325 Mg Tablet 650 Mg PO Q6H PRN TAKES 2 (325MG) TABLETS Abilify (Aripiprazole) 20 Mg Tablet 20 Mg PO DAILY Instructions to patient/family Please see electronic discharge instructions given to patient. Clinical Quality Measures DVT/VTE Risk/Contraindication: Risk Factor Score Per Nursin RFS Level Per Nursing on Admit: 4+=Very High ART CASANOVA DO Oct 06, 2018 07:31
== END 2018-10-03 13:27 | DRG 208 ==
LOC: EDUNIT# 15:40 → ER 15:42 → ICU 21:46 → 4TH 09-29 10:22
PROVIDERS: ADMIT Family Medicine; ATTEND Family Medicine
PROC: 5A1945Z Respiratory Ventilation, 24-96 Consecutive Hours (ICD-10-PCS; principal; 2018-09-24)
PROC: 0PSHXZZ Reposition Right Radius, External Approach (ICD-10-PCS; 2018-09-26)
DX: J96.22 Acute and chronic respiratory failure with hypercapnia (principal); J14 Pneumonia due to Hemophilus influenzae; J13 Pneumonia due to Streptococcus pneumoniae; I11.0 Hypertensive heart disease with heart failure; I50.33 Acute on chronic diastolic (congestive) heart failure; J44.0 Chronic obstructive pulmonary disease with (acute) lower respiratory infection; J90 Pleural effusion, not elsewhere classified; N17.9 Acute kidney failure, unspecified; E86.0 Dehydration; I95.9 Hypotension, unspecified; S52.571A Other intraarticular fracture of lower end of right radius, initial encounter for closed fracture; S52.691A Other fracture of lower end of right ulna, initial encounter for closed fracture; I25.10 Atherosclerotic heart disease of native coronary artery without angina pectoris; D69.6 Thrombocytopenia, unspecified; E83.42 Hypomagnesemia; E83.39 Other disorders of phosphorus metabolism; B19.20 Unspecified viral hepatitis C without hepatic coma; K21.9 Gastro-esophageal reflux disease without esophagitis; F41.9 Anxiety disorder, unspecified; F31.9 Bipolar disorder, unspecified; F17.210 Nicotine dependence, cigarettes, uncomplicated; Z91.19 Patient's noncompliance with other medical treatment and regimen; Z82.49 Family history of ischemic heart disease and other diseases of the circulatory system; W01.0XXA Fall on same level from slipping, tripping and stumbling without subsequent striking against object, initial encounter
CPT/HCPCS: 31500; 36415; 36600; 51702; 71045; 71046; 71250; 71260; 73110; 73130; 80048; 80053; 80202; 82805; 82962; 83605; 83735; 83880; 84100; 84478; 85007; 85025; 85027; 86141; 87040; 87070; 87077; 87081; 87186; 87205; 93306; 94003; 94640; 94760; 94799; 96361; 96365; 96367; 96375; 99291

== ENCOUNTER 2018-12-27 12:08 | Inpatient (IN) | payer MEDICAID ==
[~2018-12-27] VITALS: Ht 170.2 cm; Wt 97.7 kg
[2018-12-27] VITALS (19 sets, daily range): BP systolic 78–139; BP diastolic 48–82
[~2018-12-27 12:08] MED LIST changes: +CARB15DR OU; +CARB15DR51 EACH EAR; +CEFD300C3 PO; +CLON0.5T13 PO; +DIVA125C10 PO; -ETOMIDATE IV SOLN 20 MG/10 ML VIAL IV ONE; -MIDAZOLAM 5 MG/5 ML (VERSED) VIAL IJ ONE; +MULT-35 PO; +ONDN4T PO; -ROCURONIUM 10 MG/ML 5 ML SYRINGE IV ONE; -SUCCINYLCHOLINE INJ 100 MG/5 ML SYR INJ ONE; -fentaNYL INJECTION 100 MCG/2 ML AMP INJ ONE
--- NOTE | 2018-12-27 12:08 | NUR ---
PATIENT ADULT DIAPER WET AND STAINED WITH URINE BM NOTED AND DRIED TO BOTTEM.
[2018-12-27] MEDS ORDERED: RT-ALBUTEROL/IPRATROPIUM 3 ML (DUONEB) VIAL ONE (12:09)
[2018-12-27] MEDS ORDERED: NS IV 1000 ML 1,000 ML IV ONE ×3 (12:11→15:56)
[2018-12-27] MEDS ORDERED: RT-ALBUTEROL SULF 2.5 MG/3 ML PRE-MIX VIAL INH STA (12:11)
[2018-12-27] MEDS ORDERED: RT-ALBUTEROL SULF 2.5 MG/3 ML PRE-MIX VIAL ONE (12:12)
[2018-12-27 12:22] LABS: BASOPHILS % (AUTO) 0 % (0-10); EOSINOPHILS % (AUTO) 0 % (0-10); HEMATOCRIT 48 % (40-54); HEMOGLOBIN 15.6 G/DL (13.3-17.7); LYMPHOCYTES # (AUTO) 0.7 X 10^3 (1.0-4.0); LYMPHOCYTES % (AUTO) 5 % (12-44); MEAN CORPUSCULAR HEMOGLOBIN 29 PG (25-34); MEAN CORPUSCULAR HGB CONC 33 G/DL (32-36); MEAN CORPUSCULAR VOLUME 90 FL (80-99); MEAN PLATELET VOLUME 10.6 FL (7.4-10.4); MONOCYTES # (AUTO) 1.1 X 10^3 (0.0-1.0); MONOCYTES % (AUTO) 8 % (0-12); NEUTROPHILS # (AUTO) 11.9 X 10^3 (1.8-7.8); NEUTROPHILS % (AUTO) 87 % (42-75); PLATELET COUNT 80 10^3/uL (130-400); RED CELL DISTRIBUTION WIDTH 18.4 % (10.0-14.5); WHITE BLOOD COUNT 13.7 10^3/uL (4.3-11.0)
[2018-12-27] MEDS ORDERED: methylPREDNISolone 125 MG (Solu-MEDROL) VIAL IVP ONE (12:30)
[2018-12-27] MEDS ORDERED: ACETAMINOPHEN 650 MG SUPP (TYLENOL) PR ONE (12:30)
--- NOTE | 2018-12-27 12:30 | ED General ---
General Chief Complaint: Respiratory Problems Stated Complaint: SOA Source of Information: Patient Exam Limitations: No Limitations History of Present Illness Date Seen by Provider: Dec 27, 2018 Time Seen by Provider: 12:10 Initial Comments This 58-year-old gentleman presents to the emergency room via EMS from the residential where he was found to have decreased responsiveness and hypoxia. residential staff reported O2 saturation of 76 percent on room air. He does not normally require oxygen. EMS applied CPAP and high flow oxygen resulting in oxygen saturation of 85 percent. Patient does have a history of COPD and does nebulizer treatments at the residential. He was also noted to have a high fever. Temperature on arrival was 103.7. Patient is responsive and answers questions but has a decreased level of alertness. He is tachycardic. He denies any pain. Allergies and Home Medications Allergies Coded Allergies: No Known Drug Allergies (Unverified , 12/07/16) Home Medications Acetaminophen 325 Mg Tablet, 650 MG PO Q6H PRN for PAIN-MILD, (Reported) TAKES 2 (325MG) TABLETS Aripiprazole 20 Mg Tablet, 20 MG PO DAILY, (Reported) Aspirin 81 Mg Tablet.dr, 81 MG PO DAILY, (Reported) Benzonatate 200 Mg Capsule, 200 MG PO Q8H PRN for COUGH, (Reported) Budesonide/Formoterol Fumarate 10.2 Gm Hfa.aer.ad, 2 PUFF IH BID, (Reported) Carbamide Peroxide 15 Ml Drops, 5 DROPS EACH EAR Q12H PRN for EAR WAX BUILD UP, (Reported) Carboxymethylcellulose Sodium 15 Ml Drops, 1 DROP OU Q4H PRN for DRY EYES, ( Reported) Cefdinir 300 Mg Capsule, 300 MG PO BID Prescribed by: ART CASANOVA on 10/03/18 0801 Clonazepam 0.5 Mg Tablet, 0.5 MG PO BID, (Reported) Divalproex Sodium 125 Mg Cap.sprink, 125 MG PO TID, (Reported) Escitalopram Oxalate 20 Mg Tablet, 40 MG PO DAILY, (Reported) TAKES 2 (20MG) TABLETS Furosemide 20 Mg Tablet, 20 MG PO DAILY, (Reported) Ipratropium/Albuterol Sulfate 3 Ml Ampul.neb, 3 ML NEB Q6H, (Reported) Lisinopril 2.5 Mg Tablet, 2.5 MG PO HS, (Reported) Metoprolol Tartrate 25 Mg Tablet, 25 MG PO BID, (Reported) HOLD FOR SYSTOLIC BP < 100 Multivitamin 1 Each Tablet, 1 TAB PO DAILY, (Reported) Ondansetron HCl 4 Mg Tab, 4 MG PO Q4H PRN for NAUSEA/VOMITING-1ST LINE, ( Reported) Pantoprazole Sodium 40 Mg Tablet.dr, 40 MG PO DAILY, (Reported) Patient Home Medication List Home Medication List Reviewed: Yes Review of Systems Review of Systems Constitutional: see HPI EENTM: no symptoms reported Respiratory: see HPI Cardiovascular: see HPI Gastrointestinal: no symptoms reported Genitourinary: no symptoms reported Musculoskeletal: no symptoms reported Skin: no symptoms reported Psychiatric/Neurological: No Symptoms Reported Hematologic/Lymphatic: No Symptoms Reported Immunological/Allergic: no symptoms reported Past Ogjfnri-Yuwesn-Ghwggn Hx Past Med/Social Hx: Reviewed and Corrections made Patient Social History Alcohol Use: Denies Use Recreational Drug Use: No (hx of cocaine use) Type Used: Cigarettes Recent Hopitalizations: No Immunizations Up To Date Tetanus Booster (TDap): Unknown Seasonal Allergies Seasonal Allergies: No Past Medical History Surgeries: No Respiratory: Yes COPD Cardiac: Yes Hypertension Neurological: No Genitourinary: No Gastrointestinal: Yes Gastroesophageal Reflux, Hepatitis Musculoskeletal: No Endocrine: No HEENT: No Cancer: Yes Colon Psychosocial: Yes Anxiety, Violent Behavior, Depression Integumentary: No Blood Disorders: Yes (HEP C ) Family Medical History No Pertinent Family Hx Physical Exam-Suspected Sepsis Physical Exam Vital Signs Vital Signs - First Documented 12/27/18 12/27/18 12:22 16:30 O2 Flow Rate 80.00 FiO2 70 Capillary Refill : Height, Weight, BMI Height: 5'7.00" Weight: 233lbs. 0.3oz. 105.425289kh; 38.1 BMI Method:Stated General Appearance: WD/WN, Moderate Distress (Respiratory) HEENT: PERRL/EOMI, Pharynx Normal, Other (Mucous membranes dry) Neck: Normal Inspection, Supple Respiratory: Accessory Muscle Use, Crackles (Right base), Decreased Breath Sounds, Respiratory Distress, Wheezing Cardiovascular: No Edema, No Murmur, Tachycardia Gastrointestinal: Normal Bowel Sounds, Non Tender, Soft Extremity: Normal Inspection, No Pedal Edema Neurologic/Psychiatric: Alert, Oriented x3, No Motor/Sensory Deficits, beef grinder II- XII Norm as Tested, Other (Somnolent) Skin: warm/dry, pallor Focused Exam Sepsis Stage: Severe Sepsis Possible Source: Pulmonary Lactate Level 12/27/18 12:10: Lactic Acid Level 1.42 12/27/18 16:50: Lactic Acid Level 0.92 Time of Focused Exam: 14:40 Respiratory: No Respiratory Distress, Crackles (right base), Other (on BiPAP) Cardiovascular: Regular Rate, Rhythm, No Edema, No Murmur Capillary Refill: Less Than 3 Seconds Peripheral Pulses: 3+ Radial Pulses (L) Skin: normal color, warm/dry Lactic Acid Level Laboratory Tests Test 12/27/18 16:50 Lactic Acid Level 0.92 MMOL/L (0.50-2.00) Within 3hrs of presentation: Admin fluids, Admin 30ml/kg IBW due to BMI>30, Admin ABX, Blood cultures prior to ABX's, Focus exam, Lactate level Procedures/Interventions Date of ETT Placement: Sep 24, 2018 Time of ETT Placement: 2019 Progress/Results/Core Measures Suspected Sepsis SIRS Temperature: Pulse: Respiratory Rate: Laboratory Tests 12/27/18 12:10: White Blood Count 13.7H Blood Pressure / Mean: 12/27/18 12:10: Lactic Acid Level 1.42 12/27/18 16:50: Lactic Acid Level 0.92 Laboratory Tests 12/27/18 12:10: Creatinine 1.14, INR Comment 1.0, Platelet Count 80L, Total Bilirubin 0.7 12/27/18 16:50: Creatinine 1.15, Total Bilirubin 0.7 Results/Orders Lab Results Laboratory Tests Test 12/27/18 12:10 12/27/18 12:32 12/27/18 12:40 12/27/18 13:25 Range/Units White Blood Count 13.7 H 4.3-11.0 10^3/uL Red Blood Count 5.35 4.35-5.85 10^6/uL Hemoglobin 15.6 13.3-17.7 G/DL Hematocrit 48 40-54 % Mean Corpuscular Volume 90 80-99 FL Mean Corpuscular Hemoglobin 29 25-34 PG Mean Corpuscular Hemoglobin Concent 33 32-36 G/DL Red Cell Distribution Width 18.4 H 10.0-14.5 % Platelet Count 80 L 130-400 10^3/uL Mean Platelet Volume 10.6 H 7.4-10.4 FL Neutrophils (%) (Auto) 87 H 42-75 % Lymphocytes (%) (Auto) 5 L 12-44 % Monocytes (%) (Auto) 8 0-12 % Eosinophils (%) (Auto) 0 0-10 % Basophils (%) (Auto) 0 0-10 % Neutrophils # (Auto) 11.9 H 1.8-7.8 X 10^3 Lymphocytes # (Auto) 0.7 L 1.0-4.0 X 10^3 Monocytes # (Auto) 1.1 H 0.0-1.0 X 10^3 Eosinophils # (Auto) 0.0 0.0-0.3 10^3/uL Basophils # (Auto) 0.0 0.0-0.1 10^3/uL Neutrophils % (Manual) 66 % Lymphocytes % (Manual) 2 % Monocytes % (Manual) 10 % Band Neutrophils 22 % Toxic Granulation 1+ Blood Morphology Comment NORMAL Prothrombin Time 13.6 12.2-14.7 SEC INR Comment 1.0 0.8-1.4 Activated Partial Thromboplast Time 37 H 24-35 SEC Sodium Level 137 135-145 MMOL/L Potassium Level 4.7 3.6-5.0 MMOL/L Chloride Level 97 L 98-107 MMOL/L Carbon Dioxide Level 29 21-32 MMOL/L Anion Gap 11 5-14 MMOL/L Blood Urea Nitrogen 33 H 7-18 MG/DL Creatinine 1.14 0.60-1.30 MG/DL Estimat Glomerular Filtration Rate > 60 BUN/Creatinine Ratio 29 Glucose Level 114 H 70-105 MG/DL Lactic Acid Level 1.42 0.50-2.00 MMOL/L Calcium Level 8.7 8.5-10.1 MG/DL Corrected Calcium 8.9 8.5-10.1 MG/DL Total Bilirubin 0.7 0.1-1.0 MG/DL Aspartate Amino Transf (AST/SGOT) 47 H 5-34 U/L Alanine Aminotransferase (ALT/SGPT) 27 0-55 U/L Alkaline Phosphatase 55 40-136 U/L Troponin I 0.554 *H <0.028 NG/ML C-Reactive Protein High Sensitivity 16.78 H 0.00-0.50 MG/DL B-Type Natriuretic Peptide 836.1 H <100.0 PG/ML Total Protein 7.1 6.4-8.2 GM/DL Albumin 3.8 3.2-4.5 GM/DL Urine Color YELLOW Urine Clarity SLIGHTLY CLOUDY Urine pH 5 5-9 Urine Specific [place] 1.020 1.016-1.022 Urine Protein 2+ H NEGATIVE Urine Glucose (UA) NEGATIVE NEGATIVE Urine Ketones NEGATIVE NEGATIVE Urine Nitrite NEGATIVE NEGATIVE Urine Bilirubin NEGATIVE NEGATIVE Urine Urobilinogen NORMAL NORMAL MG/DL Urine Leukocyte Esterase NEGATIVE NEGATIVE Urine RBC (Auto) 2+ H NEGATIVE Urine RBC NONE /HPF Urine WBC NONE /HPF Urine Squamous Epithelial Cells NONE /HPF Urine Crystals NONE /LPF Urine Bacteria TRACE /HPF Urine Casts NONE /LPF Urine Mucus NEGATIVE /LPF Urine Culture Indicated NO Blood Gas Puncture Site LT RAD LT RAD Blood Gas Patient Temperature 103.4 102 Arterial Blood pH 7.26 *L 7.28 *L 7.37-7.43 Arterial Blood Partial Pressure CO2 78 *H 73 *H 35-45 MMHG Arterial Blood Partial Pressure O2 147 H 77 L 79-93 MMHG Arterial Blood HCO3 32 H 32 H 23-27 MMOL/L Arterial Blood Total CO2 34.4 H 34.3 H 21.0-31.0 MMOL/L Arterial Blood Oxygen Saturation 99 90 L 94-100 % Arterial Blood Base Excess 6.1 H 6.1 H -2.5-2.5 MMOL/L Jeff Test YES-POS YES-POS Blood Gas Ventilator Setting NO NO Blood Gas Inspired Oxygen BIPAP 90% BIPAP 70% Test 12/27/18 16:50 12/27/18 17:00 Range/Units Sodium Level 137 135-145 MMOL/L Potassium Level 5.4 H 3.6-5.0 MMOL/L Chloride Level 102 98-107 MMOL/L Carbon Dioxide Level 24 21-32 MMOL/L Anion Gap 11 5-14 MMOL/L Blood Urea Nitrogen 31 H 7-18 MG/DL Creatinine 1.15 0.60-1.30 MG/DL Estimat Glomerular Filtration Rate > 60 BUN/Creatinine Ratio 27 Glucose Level 142 H 70-105 MG/DL Lactic Acid Level 0.92 0.50-2.00 MMOL/L Calcium Level 7.8 L 8.5-10.1 MG/DL Corrected Calcium 8.2 L 8.5-10.1 MG/DL Total Bilirubin 0.7 0.1-1.0 MG/DL Aspartate Amino Transf (AST/SGOT) 46 H 5-34 U/L Alanine Aminotransferase (ALT/SGPT) 26 0-55 U/L Alkaline Phosphatase 48 40-136 U/L Total Protein 6.5 6.4-8.2 GM/DL Albumin 3.5 3.2-4.5 GM/DL Triglycerides Level 107 <150 MG/DL Blood Gas Puncture Site LT RAD Blood Gas Patient Temperature 97.0 Arterial Blood pH 7.21 *L 7.37-7.43 Arterial Blood Partial Pressure CO2 78 *H 35-45 MMHG Arterial Blood Partial Pressure O2 126 H 79-93 MMHG Arterial Blood HCO3 30 H 23-27 MMOL/L Arterial Blood Total CO2 32.8 H 21.0-31.0 MMOL/L Arterial Blood Oxygen Saturation 98 94-100 % Arterial Blood Base Excess 2.8 H -2.5-2.5 MMOL/L Jeff Test YES-POS Blood Gas Ventilator Setting NO Blood Gas Inspired Oxygen 70% BIPAP Micro Results Microbiology 12/27/18 Influenza Types A,B Antigen (TESSY) - Final, Complete My Orders Orders - GABE YAN MD Cbc With Automated Diff (12/27/18 12:10) Comprehensive Metabolic Panel (12/27/18 12:10) Blood Culture (12/27/18 12:10) Sputum Culture (12/27/18 12:10) Urinalysis (12/27/18 12:10) Urine Culture (12/27/18 12:10) Protime With Inr (12/27/18 12:10) Partial Thromboplastin Time (12/27/18 12:10) Chest 1 View, Ap/Pa Only (12/27/18 12:10) Saline Lock/Iv-Start (12/27/18 12:10) Saline Lock/Iv-Start (12/27/18 12:10) Vital Signs Adult Sepsis Patie Q15M (12/27/18 12:10) O2 (12/27/18 12:10) Remove Rings In Anticipation O (12/27/18 12:10) Lactic Acid Analyzer (12/27/18 12:10) Influenza A And B Antigens (12/27/18 12:10) Saline Lock/Iv-Start (12/27/18 12:11) Ns Iv 1000 Ml (Sodium Chloride 0.9%) (12/27/18 12:11) BNP (12/27/18 12:11) Hs C Reactive Protein (12/27/18 12:11) Albuterol Pre-Mix Nebs (Rt) (Proventil (12/27/18 12:11) Svn Small Volume Nebulizer (12/27/18 12:11) Arterial Blood Gas (12/27/18 12:13) Albuterol Pre-Mix Nebs (Rt) (Proventil (12/27/18 12:12) Methylprednisolone Sod Succ (Solu-Medrol (12/27/18 12:30) Acetaminophen Suppository (Tylenol Suppo (12/27/18 12:30) Manual Differential (12/27/18 12:10) Arterial Blood Gas (12/27/18 13:07) Piperacillin/Tazobactam (Bulk) (Zosyn In (12/27/18 13:15) Ct Angio Chest W (12/27/18 13:49) Troponin I (12/27/18 13:49) Saline Lock/Iv-Start (12/27/18 13:50) Ns Iv 1000 Ml (Sodium Chloride 0.9%) (12/27/18 13:50) Norepinephrine (Levophed) (12/27/18 15:45) Ns Iv 1000 Ml (Sodium Chloride 0.9%) (12/27/18 15:56) Ekg Tracing (12/27/18 16:02) Monitor-Rhythm Ecg Trace Only (12/27/18 16:02) Medications Given in ED Current Medications Medications Dose Ordered Sig/Mi Route Start Time Stop Time Status Last Admin Dose Admin Acetaminophen 650 mg ONCE ONCE VT 12/27/18 12:30 12/27/18 12:31 DC 12/27/18 12:47 650 MG Methylprednisolone Sodium Succinate 125 mg ONCE ONCE IVP 12/27/18 12:30 12/27/18 12:31 DC 12/27/18 12:47 125 MG Piperacillin Sod/ Tazobactam Sod 4.5 gm/Sodium Chloride 120 ml @ 240 mls/hr ONCE ONCE IV 12/27/18 13:15 12/27/18 13:44 DC 12/27/18 13:35 240 MLS/HR Sodium Chloride 1,000 ml @ 0 mls/hr Q0M ONCE IV 12/27/18 12:11 12/27/18 12:12 DC 12/27/18 12:16 1,000 MLS/HR Sodium Chloride 1,000 ml @ 0 mls/hr Q0M ONCE IV 12/27/18 13:50 12/27/18 13:52 DC 12/27/18 14:50 0 MLS/HR Sodium Chloride 1,000 ml @ 0 mls/hr Q0M ONCE IV 12/27/18 15:56 12/27/18 15:57 DC 12/27/18 16:42 999 MLS/HR Vital Signs/I&O 12/27/18 12/27/18 12/27/18 12/27/18 12:08 12:08 12:22 12:38 Temp 103.7 103.0 Pulse 125 117 116 Resp 20 36 20 B/P (MAP) 115/68 (84) 104/61 (75) Pulse Ox 90 80 96 96 O2 Delivery NIV/CPAP NIV Bilevel NIV Bilevel O2 Flow Rate 80.00 12/27/18 12/27/18 12/27/18 12/27/18 16:14 16:30 16:30 16:43 Temp 97.3 97.0 Pulse 89 Resp 18 26 B/P (MAP) 101/49 (66) Pulse Ox 95 95 O2 Delivery NIV Bilevel NIV Bilevel O2 Flow Rate 70.00 FiO2 70 12/27/18 12/27/18 12/27/18 12/27/18 16:45 16:50 17:00 17:20 Pulse 80 76 81 77 Resp 13 16 8 18 B/P (MAP) 101/65 (77) 106/54 (71) 104/64 (77) 109/63 (78) Pulse Ox 97 96 96 95 O2 Delivery NIV Bilevel NIV Bilevel NIV Bilevel NIV Bilevel O2 Flow Rate 70.00 70.00 70.00 70.00 12/27/18 12/27/18 12/27/18 12/27/18 17:30 17:50 18:00 18:30 Pulse 77 76 73 96 B/P (MAP) 123/67 (85) 103/59 (74) 103/59 (74) 96/57 (70) Pulse Ox 94 96 96 97 O2 Delivery NIV Bilevel NIV Bilevel NIV Bilevel Mechanical Ventilator O2 Flow Rate 70.00 70.00 70.00 100.00 12/27/18 12/27/18 12/27/18 12/27/18 18:35 19:00 19:18 19:26 Pulse 80 77 61 Resp 18 18 B/P (MAP) 139/82 (101) 90/40 Pulse Ox 97 98 O2 Delivery Mechanical Ventilator O2 Flow Rate 100.00 FiO2 100 12/27/18 12/27/18 20:00 20:15 Temp 98.3 Pulse 61 58 Resp 17 18 B/P (MAP) 94/62 (73) 92/62 (72) 92/54 (67) Pulse Ox 98 99 O2 Delivery Mechanical Ventilator Mechanical Ventilator O2 Flow Rate 100.00 100.00 Capillary Refill : Progress Note #1: Time: 13:44 Progress Note Septic workup was pursued. BiPAP was applied immediately along with a one hour nebulizer treatment. Oxygen saturations stabilized and air movement improved. Patient has become more alert and is answering questions in full sentences. He reports that he is hungry. Right lower lobe pneumonia is suspected based off of x-ray. Antibiotic therapy is being initiated with Zosyn. Blood cultures and lactic acid have been drawn. ABG showed acidosis with a pH of 7.26 and hypercarbia with a PCO2 of 78. This improved slightly after 45 minutes of BiPAP with a pH of 7.28 and a PCO2 of 73. Case was discussed with Dr. Redmond. He suggested a troponin and a CT angiogram of the chest due to the significant hypoxia. These were ordered. Patient also received 1 L of IV normal saline along with Solu-Medrol 125 mg IV. Progress Note #2: Time: 16:17 Progress Note Patient has developed multiple hypertensive measurements despite receiving 2 L of IV normal saline. 2 L of IV saline completes the 30 ML per kilogram bolus for his ideal body weight. A third liters now being initiated. Levophed drip is also being initiated. Patient's respiratory status remains stable on BiPAP. He is somnolent but is still answering questions appropriately. CT angiogram showed no evidence of pulmonary embolism. A confirmed presence of pneumonia. There is also mediastinal lymphadenopathy identified. Troponin was also found to be elevated. Dr. Poe was consulted. Given absence of obstructive disease on his cardiac catheterization in 2016, this likely represents hypoxic insult. ECG Initial ECG Impression Date: Dec 27, 2018 Initial ECG Impression Time: 12:17 Initial ECG Rate: 110 Initial ECG Rhythm: S.Tach Comment Sinus tachycardia with no ST elevation or depression. No abnormal intervals. Right axis deviation by automated interpretation. Diagnostic Imaging Diagonstic Imaging: Xray Plain Films/CT/US/NM/MRI: chest Comments Chest x-ray viewed by me and report reviewed. See report below: NAME: LUIS MANUEL RETANA [facility] REC#: [id number] PT STATUS: REG ER : 1960 PHYSICIAN: GABE YAN MD ADMIT DATE: 12/27/18/ER Draft Date of Exam:12/27/18 CHEST 1 VIEW, AP/PA ONLY INDICATION: Dyspnea. COMPARISON: 10/02/2018. DISCUSSION: Two views of the chest were obtained. Slightly improved aeration of the right lung base as compared to the prior exam. Consolidation is present within the bilateral lung bases which is decreased on the right, new on the left. Findings are nonspecific though concerning for pneumonia. Cardiomegaly is stable. No osseous abnormality or pneumothorax. IMPRESSION: 1. Bibasilar consolidation, concerning for pneumonia. Dictated on workstation # [id number] Dict: 12/27/18 1301 Trans: 12/27/18 1311 [facility] [id number] Interpreted by: JUSTIN BENZ MD Diagonstic Imaging: CT Plain Films/CT/US/NM/MRI: chest Comments CT angiogram chest viewed by me and report reviewed. See report below: NAME: LUIS MANUEL RETANA [facility] REC#: [id number] PT STATUS: REG ER : 1960 PHYSICIAN: GABE YAN MD ADMIT DATE: 12/27/18/ER Signed Date of Exam:12/27/18 CT ANGIO CHEST W PROCEDURE: CT angiography of the chest with contrast. TECHNIQUE: Multiple contiguous axial images were obtained through the chest after uneventful bolus administration of intravenous contrast. 2D reconstructed CTA MIP acquisitions were also performed. INDICATION: Respiratory distress. FINDINGS: Evaluation of the pulmonary arterial system is without evidence of thromboembolism. No filling defects are seen within central, lobar or segmental branches. The thoracic aorta is normal caliber. No dissection is seen. No pericardial fluid is seen. There is a trace right pleural effusion. No axillary lymphadenopathy is seen. There are enlarged lymph nodes in the right paratracheal and subcarinal location. There also appear to be enlarged lymph nodes in the cailin, bilaterally. This appears increased when compared to prior CT chest from 10/01/2018. Parenchymal evaluation does show infiltrate in the posterior right upper lobe and right midlung as well as the right lower lobe. Left lung is clear. Upper abdomen demonstrates multiple stones in the gallbladder. IMPRESSION: 1. No evidence of pulmonary embolism or thoracic aortic dissection. 2. Trace right pleural effusion. 3. Right-sided pulmonary infiltrates. There is some mediastinal and hilar lymphadenopathy, increased when compared with CT chest from 10/01/2018, indeterminate between reactive versus neoplastic. Continued followup to confirm stability is recommended. Dictated by: Dictated on workstation # [id number] Dict: 12/27/18 1507 Trans: 12/27/18 1533 [facility] [id number] Interpreted by: ANDRÉS HIDALGO MD Electronically signed by: ANDRÉS HIDALGO MD 12/27/18 1533 Departure Communication (Admissions) Time/Spoke to Admitting Phy: 15:45 Dr. Jean Time/Spoke to Consulting Phy: 15:50 Dr. Nyla Poe consulted at 16:05. Impression Primary Impression: Septic shock Additional Impressions: Respiratory failure Qualified Codes: J96.01 - Acute respiratory failure with hypoxia; J96.02 - Acute respiratory failure with hypercapnia Bilateral pneumonia Qualified Codes: J18.1 - Lobar pneumonia, unspecified organism Elevated troponin COPD exacerbation Disposition: ADMITTED INPATIENT Condition: Improved Admissions Decision to Admit Reason: Admit from ER (General) Decision to Admit/Date: Dec 27, 2018 Time/Decision to Admit Time: 12:15 Departure-Patient Inst. Referrals: ART CASANOVA DO (PCP/Family) Primary Care Physician GABE YAN MD Dec 27, 2018 12:30
--- NOTE | 2018-12-27 12:33 | NUR ---
LAB HERE TO DRAW 2ND BLOOD CULTURE . ABG BY RT.
[2018-12-27 12:41] LABS: ALANINE AMINOTRANSFERASE 27 U/L (0-55); ALBUMIN 3.8 GM/DL (3.2-4.5); ALKALINE PHOSPHATASE 55 U/L (40-136); BILIRUBIN,TOTAL 0.7 MG/DL (0.1-1.0); BUN/CREATININE RATIO 29; CALCIUM 8.7 MG/DL (8.5-10.1); CARBON DIOXIDE 29 MMOL/L (21-32); CHLORIDE 97 MMOL/L (98-107); CREATININE SERUM 1.14 MG/DL (0.60-1.30); GFR ESTIMATED > 60; GLUCOSE 114 MG/DL (70-105); POTASSIUM 4.7 MMOL/L (3.6-5.0); SODIUM 137 MMOL/L (135-145); TOTAL PROTEIN 7.1 GM/DL (6.4-8.2)
--- NOTE | 2018-12-27 12:41 | NUR ---
EYES OPEN RESPONDS TO QUESTION
[2018-12-27 12:42] LABS: BILIRUBIN,URINE NEGATIVE (NEGATIVE); CLARITY,URINE SLIGHTLY CLOUDY; COLOR,URINE YELLOW; GLUCOSE, URINE (UA) NEGATIVE (NEGATIVE); KETONES,URINE NEGATIVE (NEGATIVE); LEUKOCYTE ESTERASE ,URINE NEGATIVE (NEGATIVE); NITRITE,URINE NEGATIVE (NEGATIVE); PH,URINE 5 (5-9); PROTEIN,URINE 2+ (NEGATIVE); UROBILINOGEN,URINE NORMAL (NORMAL)
[2018-12-27 12:48] LABS: ABG BASE EXCESS 6.1 MMOL/L (-2.5-2.5); ABG OXYGEN SATURATION 99 % (94-100); ABG PO2 147 MMHG (79-93); ABG TCO2 34.4 MMOL/L (21.0-31.0)
[2018-12-27 12:54] LABS: BACTERIA,URINE TRACE /HPF
[2018-12-27 12:55] LABS: ABG PCO2 78 MMHG (35-45); ABG PH 7.26 (7.37-7.43)
[2018-12-27 12:56] LABS: ALLENS TEST YES-POS; INSPIRED O2 BIPAP 90%; PATIENT TEMP 103.4; VENTILATOR NO
[2018-12-27 13:00] LABS: PROTHROMBIN TIME PATIENT 13.6 SEC (12.2-14.7)
--- NOTE | 2018-12-27 13:12 | Diagnostic Imaging Report ---
INDICATION: Dyspnea. COMPARISON: 10/02/2018. DISCUSSION: Two views of the chest were obtained. Slightly improved aeration of the right lung base as compared to the prior exam. Consolidation is present within the bilateral lung bases which is decreased on the right, new on the left. Findings are nonspecific though concerning for pneumonia. Cardiomegaly is stable. No osseous abnormality or pneumothorax. IMPRESSION: 1. Bibasilar consolidation, concerning for pneumonia. Dictated by: Dictated on workstation # [id number]
[2018-12-27] MEDS ORDERED: PIPERACILLIN/TAZOBACTAM (BULK) 4.5 GM in NS (IVPB) 100 ML IV ONE (13:15)
[2018-12-27 13:28] LABS: ABG BASE EXCESS 6.1 MMOL/L (-2.5-2.5); ABG OXYGEN SATURATION 90 % (94-100); ABG PO2 77 MMHG (79-93); ABG TCO2 34.3 MMOL/L (21.0-31.0)
[2018-12-27 13:40] LABS: ABG PCO2 73 MMHG (35-45); ABG PH 7.28 (7.37-7.43); ALLENS TEST YES-POS; INSPIRED O2 BIPAP 70%; PATIENT TEMP 102; VENTILATOR NO
--- NOTE | 2018-12-27 13:44 | NUR ---
PATIENT TOLD HE WAS HUNGRY
--- NOTE | 2018-12-27 13:55 | NUR ---
CALLED RT TO GOT TO CT WITH PATIENT FOR CT ANGIO
[2018-12-27 14:00] LABS: BAND NEUTROPHILS 22 %; LYMPHOCYTES % (MANUAL) 2 %; MONOCYTES % (MANUAL) 10 %; NEUTROPHILS % (MANUAL) 66 %; RBC MORPH NORMAL; TOXIC GRANULATION/VACUOLAZATIO 1+
--- NOTE | 2018-12-27 15:13 | Diagnostic Imaging Report ---
PROCEDURE: CT angiography of the chest with contrast. TECHNIQUE: Multiple contiguous axial images were obtained through the chest after uneventful bolus administration of intravenous contrast. 2D reconstructed CTA MIP acquisitions were also performed. INDICATION: Respiratory distress. FINDINGS: Evaluation of the pulmonary arterial system is without evidence of thromboembolism. No filling defects are seen within central, lobar or segmental branches. The thoracic aorta is normal caliber. No dissection is seen. No pericardial fluid is seen. There is a trace right pleural effusion. No axillary lymphadenopathy is seen. There are enlarged lymph nodes in the right paratracheal and subcarinal location. There also appear to be enlarged lymph nodes in the cailin, bilaterally. This appears increased when compared to prior CT chest from 10/01/2018. Parenchymal evaluation does show infiltrate in the posterior right upper lobe and right midlung as well as the right lower lobe. Left lung is clear. Upper abdomen demonstrates multiple stones in the gallbladder. IMPRESSION: 1. No evidence of pulmonary embolism or thoracic aortic dissection. 2. Trace right pleural effusion. 3. Right-sided pulmonary infiltrates. There is some mediastinal and hilar lymphadenopathy, increased when compared with CT chest from 10/01/2018, indeterminate between reactive versus neoplastic. Continued followup to confirm stability is recommended. Dictated by: Dictated on workstation # [id number]
--- NOTE | 2018-12-27 15:15 | NUR ---
B/P 86/53 DR NOTIFIED 2ND LINE STARTED FLUIDS INFUSING.
[2018-12-27] MEDS: NOREPINEPHRINE 4 MG in NS (IVPB) 250 ML IV SCH (16:01)
--- NOTE | 2018-12-27 16:17 | NUR ---
TOTAL 1100 OUT FROM [place] ON ADMIT.
--- OUTSIDE RECORDS SUMMARY | 2018-12-27 16:18 | XMS REPORT | Clinical Summary ---
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
--- OUTSIDE RECORDS SUMMARY | 2018-12-27 16:18 | XMS REPORT | Clinical Summary ---
Author Author [facility] Organization [facility] Address Unknown Phone Unavailable Care Team Providers Care Grave Digger Name Role Phone Traci Lyons RN Unavailable Unavailable Clifton Navarrete MD PCP Source Comments Some departments are not documenting in the electronic medical record. If you do not see the information that you expected, contact Release of Information in the Health Information Management department at [phone] for further assistance in locating additional records.[facility] Allergies No Known Allergies Medications End Date Status Medication Sig Dispensed Refills Start Date Active ABILIFY PO 0 7 Active Problems Not on file Social History Date Tobacco Use Types Packs/Day Years Used Current Every Day Smoker 1 Sex Assigned at Date Recorded Not on file Industry Job Start Date Occupation Not on file Not on file Not on file Travel End Travel History Travel Start No recent travel history available. 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 Blood Pressure 133/71 10/08/2007 11:36 PM MACHINIST SUPERVISOR OUTSIDE Pulse 94 10/08/2007 11:36 PM MACHINIST SUPERVISOR OUTSIDE Temperature 36.1 C (97 F) - Respiratory Rate - 10/08/2007 11:36 PM MACHINIST SUPERVISOR OUTSIDE Oxygen Saturation 93% - Inhaled Oxygen - Concentration - Weight - - Height - - Body Mass Index - Plan of Treatment Health Maintenance Due Date Last Done Comments HEPATITIS C SCREENING 1958 PHYSICAL (COMPREHENSIVE) 1965 EXAM HIV SCREENING 1973 DTAP/TDAP VACCINES (1 - 1976 Tdap) COLORECTAL CANCER 2008 SCREENING SHINGLES RECOMBINANT 2008 VACCINE (1 of 2) INFLUENZA VACCINE 05/21/2018 Results Not on filefrom Last 3 Months
--- NOTE | 2018-12-27 16:30 | NUR ---
LAINEYLUIS MANUEL Oates admitted to room CU5-1, with an admitting diagnosis of respiratory Failure, on 12/27/18 from AM via cart, accompanied by staff.LUIS MANUEL RETANA introduced to surroundings, call light, bed controls, phone, TV, temperature control, lights, meal times, smoking policy, visitor policy, side rail policy, bathrooms and showers. Patient Rights given to patient in the handbook. LUIS MANUEL RETANA verbalizes understanding that [facility] is not responsible for the loss or damage to any personal effects or valuables that are kept in the patients posession during their hospitalization. The following Patient Care Plans were discussed with the pt and sister: Discharge Planning. LUIS MANUEL RETANA verbalizes understanding of Interdisciplinary Patient Education. Patient and/or family were informed about the Rapid Response Team and its purpose.
[2018-12-27] MEDS ORDERED: ASPIRIN 81 MG CHEW (CHILDREN'S ASA) PO SCH (16:36)
[2018-12-27] MEDS ORDERED: VANCOMYCIN 2000 MG/NS 500 ML IVPB IV NR ×2 (16:42)
[2018-12-27] MEDS ORDERED: ONDANSETRON 4 MG/2 ML (SDV) Z0FRAN IV PRN ×2 (16:45→20:30)
--- NOTE | 2018-12-27 16:45 | NUR ---
Vancomycin - give 2gm dose now, then start 1gm every 8 hours, approximate time for 1st dose of 1gm Vanco is around midnight.
--- NOTE | 2018-12-27 16:46 | NUR ---
CALLED ICU WAS NOT AWARE THAT 3 LITER OF NS TO BE HUNG BEFORE ADMIT INFORMED THEM THAT ORDERED IT . THEY WILL HANG IT.
[2018-12-27] MEDS ORDERED: NS IV 1000 ML 1,000 ML IV SCH (16:58)
[2018-12-27] MEDS ORDERED: EPINEPHrine 1 MG INJECTION 5 MG in NS (IVPB) 250 ML IV SCH (17:00)
[2018-12-27] MEDS ORDERED: NS IV ONE (17:00)
[2018-12-27 17:07] LABS: ABG BASE EXCESS 2.8 MMOL/L (-2.5-2.5); ABG OXYGEN SATURATION 98 % (94-100); ABG PO2 126 MMHG (79-93); ABG TCO2 32.8 MMOL/L (21.0-31.0)
[2018-12-27 17:09] LABS: ABG PCO2 78 MMHG (35-45); ABG PH 7.21 (7.37-7.43); ALLENS TEST YES-POS; INSPIRED O2 70% BIPAP; VENTILATOR NO
[2018-12-27] MEDS: VASOPRESSIN INJECTION 20 UNIT in NS (IVPB) 100 ML IV SCH (17:12)
[2018-12-27 17:16] LABS: ALANINE AMINOTRANSFERASE 26 U/L (0-55); ALBUMIN 3.5 GM/DL (3.2-4.5); ALKALINE PHOSPHATASE 48 U/L (40-136); BILIRUBIN,TOTAL 0.7 MG/DL (0.1-1.0); BUN/CREATININE RATIO 27; CALCIUM 7.8 MG/DL (8.5-10.1); CARBON DIOXIDE 24 MMOL/L (21-32); CHLORIDE 102 MMOL/L (98-107); CREATININE SERUM 1.15 MG/DL (0.60-1.30); GFR ESTIMATED > 60; GLUCOSE 142 MG/DL (70-105); POTASSIUM 5.4 MMOL/L (3.6-5.0); SODIUM 137 MMOL/L (135-145); TOTAL PROTEIN 6.5 GM/DL (6.4-8.2)
[2018-12-27] MEDS: methylPREDNISolone 40 MG/ML (Solu-MEDROL) VIAL IV SCH ×2 (17:37→23:39)
[2018-12-27] MEDS ORDERED: DEXMEDETOMIDINE INJECTION 1,000 MCG in NS (IVPB) 250 ML IV PRN (17:45)
[2018-12-27] MEDS ORDERED: PROPOFOL DRIP (ICU) 100 ML IV SCH (17:45)
[2018-12-27] MEDS ORDERED: HALOPERIDOL 5 MG/ML (HALDOL) AMP IV PRN (17:45)
[2018-12-27] MEDS ORDERED: NS IV 1000 ML 1,000 ML ONE (18:08)
[2018-12-27] MEDS ORDERED: ROCURONIUM 10 MG/ML 5 ML SYRINGE IV ONE (18:30)
--- NOTE | 2018-12-27 18:30 | NUR ---
ANESTHESIA CALLED TO CU5 TO INTUBATE PT PER DR EVANS ORDERS. PT RECEIVED 120MG OF PROPOFOL IVP AND 50MG RODRIGO. SIZE 8ETT USED FOR INTUBATION. PT TOLERATED WELL.
--- NOTE | 2018-12-27 19:06 | Anesthesia-Procedure Note ---
Procedures/Interventions Procedure Start/Stop/Diagnosis Date of Procedure: Dec 27, 2018 Start Time: 18:15 Stop Time: 19:00 Intubation RSI: Yes 100% pre-Ox, [id number]: Yes Intubation Method: orotracheal Videoscope used: Yes Grade View: 1 Medications: Propofol, Rocuronium Mask Ventilation: positive Positive End Tide CO2: Yes Breath Sounds after Intubation: bilateral-equal ETT Securred @ (cm): 24 Intubated with ease: Yes Intubation Complications: no complications Arterial Line Arterial Line Catheter: 20G Type: Radial Location: Left Procedure: prepped, draped in sterile fashion, good wave-form was obtained, patient tolerated procedure well, no immediate complications, post procedure area cleaned, post procedure dressing applied KASHMIR TALAMANTES CRNA Dec 27, 2018 19:06
[2018-12-27] MEDS: PROPOFOL DRIP (ICU) 100 ML IV SCH (19:18)
--- NOTE | 2018-12-27 19:21 | Operative Report ---
Operative Report Date of Procedure/Surgery Dec 27, 2018 Surgeon (s) SANTIAGO VALENZUELA MD Ground Layer (s): N/A Post-Operative Diagnosis sepsis with poor venous access Procedure Performed central venous catheter placement Description of Procedure Anesthesia Type: Conscious Sedation Estimated blood loss (mL): minimal Specimen(s) collected/removed none Description of the Procedure Indication for the procedure: This gentleman is being managed for sepsis, possibly secondary to pneumonia requiring vasopressors. To facilitate this, placing a central venous catheter was felt to be appropriate. Description of the procedure: He had been intubated, being placed on mechanical ventilation. Left infraclavicular fossa was prepared and draped in the usual sterile manner. Subclavian vein was easily accessed and a floppy guidewire introduced into the heart. Subcutaneous tract was gently dilated using a silastic sheath and a 20 cm long, 7 Setswana, triple lumen central venous catheter advanced using Seldinger technique. All the channels were aspirated and flushed with heparinized saline. The catheter was unsecured using a silk suture and a dressing applied. He tolerated the procedure reasonably well. Findings of the Procedure See op report Allergies and Home Medications Allergies Coded Allergies: No Known Drug Allergies (Unverified , 12/07/16) Home Medications Acetaminophen 325 Mg Tablet, 650 MG PO Q6H PRN for PAIN-MILD, (Reported) TAKES 2 (325MG) TABLETS Aripiprazole 20 Mg Tablet, 20 MG PO DAILY, (Reported) Aspirin 81 Mg Tablet.dr, 81 MG PO DAILY, (Reported) Benzonatate 200 Mg Capsule, 200 MG PO Q8H PRN for COUGH, (Reported) Budesonide/Formoterol Fumarate 10.2 Gm Hfa.aer.ad, 2 PUFF IH BID, (Reported) Carbamide Peroxide 15 Ml Drops, 5 DROPS EACH EAR Q12H PRN for EAR WAX BUILD UP, (Reported) Carboxymethylcellulose Sodium 15 Ml Drops, 1 DROP OU Q4H PRN for DRY EYES, ( Reported) Cefdinir 300 Mg Capsule, 300 MG PO BID Prescribed by: ART CASANOVA on 10/03/18 0801 Clonazepam 0.5 Mg Tablet, 0.5 MG PO BID, (Reported) Divalproex Sodium 125 Mg Cap.sprink, 125 MG PO TID, (Reported) Escitalopram Oxalate 20 Mg Tablet, 40 MG PO DAILY, (Reported) TAKES 2 (20MG) TABLETS Furosemide 20 Mg Tablet, 20 MG PO DAILY, (Reported) Ipratropium/Albuterol Sulfate 3 Ml Ampul.neb, 3 ML NEB Q6H, (Reported) Lisinopril 2.5 Mg Tablet, 2.5 MG PO HS, (Reported) Metoprolol Tartrate 25 Mg Tablet, 25 MG PO BID, (Reported) HOLD FOR SYSTOLIC BP < 100 Multivitamin 1 Each Tablet, 1 TAB PO DAILY, (Reported) Ondansetron HCl 4 Mg Tab, 4 MG PO Q4H PRN for NAUSEA/VOMITING-1ST LINE, ( Reported) Pantoprazole Sodium 40 Mg Tablet.dr, 40 MG PO DAILY, (Reported) Patient Home Medication List Home Medication List Reviewed: Yes SANTIAGO VALENZUELA MD Dec 27, 2018 19:21
[2018-12-27] MEDS: RT-ALBUTEROL/IPRATROPIUM 3 ML (DUONEB) VIAL INH SCH ×2 (20:09→21:56)
[2018-12-27] MEDS ORDERED: ACETAMINOPHEN 650 MG SUPP (TYLENOL) PR PRN (20:30)
[2018-12-27] MEDS ORDERED: ACETAMINOPHEN 325 MG TABLET PO PRN (20:30)
[2018-12-27 20:35] LABS: ABG OXYGEN SATURATION 100 % (94-100); ABG PCO2 63 MMHG (35-45); ABG PO2 291 MMHG (79-93); ABG TCO2 28.8 MMOL/L (21.0-31.0)
[2018-12-27 20:38] LABS: ABG PH 7.24 (7.37-7.43); ALLENS TEST YES-POS; INSPIRED O2 100%; PATIENT TEMP 96.6; VENTILATOR YES
[2018-12-27] MEDS ORDERED: methylPREDNISolone 40 MG/ML (Solu-MEDROL) VIAL IV SCH (21:00)
--- NOTE | 2018-12-27 21:07 | Diagnostic Imaging Report ---
INDICATION: Central line placement. EXAMINATION: Portable erect AP chest at 7:41 p.m. FINDINGS: In the interval since the prior exam performed earlier today at 12:41 p.m., a central venous catheter has been inserted on the left. The tip of the catheter overlies the distal superior vena cava and seems to be in good position. There is no sign of a pneumothorax on the left. Also, in the interval since the prior exam, the patient has been intubated. The ET tube tip overlies the midportion of the tracheal air shadow. An enteric tube was also inserted. The tip of the tube overlies the gastric body. The overall appearance of the chest, itself, has not changed significantly. IMPRESSION: 1. There has been insertion of a left-sided PICC line without apparent complication. The patient has also been intubated and an enteric tube has been inserted. 2. A followup chest exam would be recommended for continued evaluation. Dictated by: Dictated on workstation # [id number]
[2018-12-27] MEDS: PIPERACILLIN/TAZO 4.5 GM/NS 100 ML IV SCH ×2 (21:19)
[2018-12-27] MEDS: NS IV 1000 ML 1,000 ML IV SCH (23:39)
[2018-12-27] MEDS: VANCOMYCIN 1 GM/NS 250 ML IVPB IV SCH ×2 (23:39)
[2018-12-27] MEDS: inSUlin ASPART (NovoLOG) 1 UNIT/0.01 ML (CHARGE PER UNIT) SQ SCH (23:46)
[2018-12-28] VITALS (32 sets, daily range): BP systolic 91–153; BP diastolic 44–76
[2018-12-28] MEDS: VASOPRESSIN INJECTION 20 UNIT in NS (IVPB) 100 ML IV SCH ×3 (00:19→17:45)
[2018-12-28] MEDS: NOREPINEPHRINE 4 MG in NS (IVPB) 250 ML IV SCH ×3 (01:03→16:40)
[2018-12-28] MEDS: RT-ALBUTEROL/IPRATROPIUM 3 ML (DUONEB) VIAL INH SCH ×6 (01:04→22:19)
[2018-12-28 03:58] LABS: ABG OXYGEN SATURATION 97 % (94-100); ABG PCO2 50 MMHG (35-45); ABG PO2 91 MMHG (79-93); ABG TCO2 25.1 MMOL/L (21.0-31.0)
[2018-12-28 03:59] LABS: BASOPHILS % (AUTO) 0 % (0-10); EOSINOPHILS % (AUTO) 0 % (0-10); HEMATOCRIT 49 % (40-54); HEMOGLOBIN 15.4 G/DL (13.3-17.7); LYMPHOCYTES # (AUTO) 0.8 X 10^3 (1.0-4.0); LYMPHOCYTES % (AUTO) 5 % (12-44); MEAN CORPUSCULAR HEMOGLOBIN 29 PG (25-34); MEAN CORPUSCULAR HGB CONC 32 G/DL (32-36); MEAN CORPUSCULAR VOLUME 91 FL (80-99); MEAN PLATELET VOLUME 12.3 FL (7.4-10.4); MONOCYTES # (AUTO) 0.4 X 10^3 (0.0-1.0); MONOCYTES % (AUTO) 3 % (0-12); NEUTROPHILS # (AUTO) 13.9 X 10^3 (1.8-7.8); NEUTROPHILS % (AUTO) 92 % (42-75); PLATELET COUNT 99 10^3/uL (130-400); RED CELL DISTRIBUTION WIDTH 18.7 % (10.0-14.5); WHITE BLOOD COUNT 15.1 10^3/uL (4.3-11.0)
[2018-12-28 04:04] LABS: ALLENS TEST YES-POS; INSPIRED O2 50%; VENTILATOR YES
[2018-12-28 04:05] LABS: PATIENT TEMP 98.4
[2018-12-28 04:20] LABS: BUN/CREATININE RATIO 26; CALCIUM 7.5 MG/DL (8.5-10.1); CARBON DIOXIDE 20 MMOL/L (21-32); CHLORIDE 108 MMOL/L (98-107); CREATININE SERUM 1.11 MG/DL (0.60-1.30); GFR ESTIMATED > 60; GLUCOSE 199 MG/DL (70-105); PHOSPHORUS 1.5 MG/DL (2.3-4.7); POTASSIUM 4.3 MMOL/L (3.6-5.0); SODIUM 141 MMOL/L (135-145)
[2018-12-28] MEDS: MAGNESIUM 1 GM/100 ML IVPB 100 ML IV SCH (04:26)
[2018-12-28] MEDS: KCL 20 MEQ TAB (K-DUR) PO SCH (04:26)
[2018-12-28] MEDS: POTASSIUM CL 10MEQ/50ML IVPB 50 ML IV SCH (04:26)
[2018-12-28] MEDS: PIPERACILLIN/TAZO 4.5 GM/NS 100 ML IV SCH ×6 (04:41→21:14)
[2018-12-28] MEDS: methylPREDNISolone 40 MG/ML (Solu-MEDROL) VIAL IV SCH ×3 (05:07→17:57)
[2018-12-28] MEDS: inSUlin ASPART (NovoLOG) 1 UNIT/0.01 ML (CHARGE PER UNIT) SQ SCH ×3 (05:07→17:59)
--- NOTE | 2018-12-28 05:09 | Pulmonary Consultation ---
History of Present Illness History of Present Illness Date of Consultation 12/28/18 05:04 Date of Admission Allergies and Home Medications Allergies Coded Allergies: No Known Drug Allergies (Unverified , 12/07/16) Home Medications Acetaminophen 325 Mg Tablet, 650 MG PO Q6H PRN for PAIN-MILD, (Reported) TAKES 2 (325MG) TABLETS Aripiprazole 20 Mg Tablet, 20 MG PO DAILY, (Reported) Aspirin 81 Mg Tablet.dr, 81 MG PO DAILY, (Reported) Benzonatate 200 Mg Capsule, 200 MG PO Q8H PRN for COUGH, (Reported) Budesonide/Formoterol Fumarate 10.2 Gm Hfa.aer.ad, 2 PUFF IH BID, (Reported) Carbamide Peroxide 15 Ml Drops, 5 DROPS EACH EAR Q12H PRN for EAR WAX BUILD UP, (Reported) Carboxymethylcellulose Sodium 15 Ml Drops, 1 DROP OU Q4H PRN for DRY EYES, ( Reported) Cefdinir 300 Mg Capsule, 300 MG PO BID Prescribed by: ART CASANOVA on 10/03/18 0801 Clonazepam 0.5 Mg Tablet, 0.5 MG PO BID, (Reported) Divalproex Sodium 125 Mg Cap.sprink, 125 MG PO TID, (Reported) Escitalopram Oxalate 20 Mg Tablet, 40 MG PO DAILY, (Reported) TAKES 2 (20MG) TABLETS Furosemide 20 Mg Tablet, 20 MG PO DAILY, (Reported) Ipratropium/Albuterol Sulfate 3 Ml Ampul.neb, 3 ML NEB Q6H, (Reported) Lisinopril 2.5 Mg Tablet, 2.5 MG PO HS, (Reported) Metoprolol Tartrate 25 Mg Tablet, 25 MG PO BID, (Reported) HOLD FOR SYSTOLIC BP < 100 Multivitamin 1 Each Tablet, 1 TAB PO DAILY, (Reported) Ondansetron HCl 4 Mg Tab, 4 MG PO Q4H PRN for NAUSEA/VOMITING-1ST LINE, ( Reported) Pantoprazole Sodium 40 Mg Tablet.dr, 40 MG PO DAILY, (Reported) Past Mxhptkd-Yxtrva-Ddarnp Hx Past Med/Social Hx: Reviewed and Corrections made Patient Social History Alcohol Use: Denies Use Recreational Drug Use: No (hx of cocaine use) Type Used: Cigarettes Recent Foreign Travel: No Contact w/Someone Who Travel: No Recent Infectious Disease Expo: No Recent Hopitalizations: No Immunizations Up To Date Tetanus Booster (TDap): Unknown Seasonal Allergies Seasonal Allergies: No Past Medical History Surgeries: No Respiratory: Yes COPD Cardiac: Yes Hypertension Neurological: No Genitourinary: No Gastrointestinal: Yes Gastroesophageal Reflux, Hepatitis Musculoskeletal: No Endocrine: No HEENT: No Cancer: Yes Colon Psychosocial: Yes Anxiety, Violent Behavior, Depression Integumentary: No Blood Disorders: Yes (HEP C ) Family Medical History No Pertinent Family Hx Sepsis Event Evaluation Height, Weight, BMI Height: 5'7.00" Weight: 222lbs. 3.0oz. 100.107626gv; 34.8 BMI Method:Stated Exam Exam Vital Signs Date Time Temp Pulse Resp B/P (MAP) Pulse Ox O2 Delivery O2 Flow Rate FiO2 12/28/18 04:05 65 24 95 50 12/28/18 04:00 67 24 119/56 (77) 95 Mechanical Ventilator 50.00 12/28/18 04:00 96 Mechanical Ventilator 50 12/28/18 03:40 97.9 50.00 12/28/18 03:00 65 30 118/55 (76) 96 Mechanical Ventilator 50.00 12/28/18 01:04 60 24 97 50 12/28/18 01:00 68 23 121/60 (80) 95 Mechanical Ventilator 50.00 12/28/18 01:00 60 12/28/18 00:15 95 Mechanical Ventilator 50 12/28/18 00:00 59 23 120/69 (86) 96 Mechanical Ventilator 50.00 12/27/18 23:40 98.8 60 24 121/66 (84) 96 Mechanical Ventilator 50.00 116/58 (77) 12/27/18 23:00 63 112/65 (81) 95 Mechanical Ventilator 50.00 12/27/18 22:00 57 18 104/64 (77) 98 Mechanical Ventilator 50.00 12/27/18 21:56 60 18 98 100 12/27/18 21:43 Mechanical Ventilator 70.00 12/27/18 21:00 61 22 99/64 (76) 98 Mechanical Ventilator 100.00 12/27/18 20:15 98.3 58 18 92/62 (72) 99 Mechanical Ventilator 100.00 92/54 (67) 12/27/18 20:00 61 17 94/62 (73) 98 Mechanical Ventilator 100.00 12/27/18 20:00 98 Mechanical Ventilator 70 12/27/18 19:26 61 12/27/18 19:18 90/40 12/27/18 19:00 77 18 139/82 (101) 98 Mechanical Ventilator 100.00 12/27/18 18:35 80 18 97 100 12/27/18 18:30 96 96/57 (70) 97 Mechanical Ventilator 100.00 12/27/18 18:00 73 103/59 (74) 96 NIV Bilevel 70.00 12/27/18 17:50 76 103/59 (74) 96 NIV Bilevel 70.00 12/27/18 17:30 77 123/67 (85) 94 NIV Bilevel 70.00 12/27/18 17:20 77 18 109/63 (78) 95 NIV Bilevel 70.00 12/27/18 17:00 81 8 104/64 (77) 96 NIV Bilevel 70.00 12/27/18 16:50 76 16 106/54 (71) 96 NIV Bilevel 70.00 12/27/18 16:45 80 13 101/65 (77) 97 NIV Bilevel 70.00 12/27/18 16:43 26 95 70.00 12/27/18 16:30 NIV Bilevel 70 12/27/18 16:30 97.0 12/27/18 16:14 97.3 89 18 101/49 (66) 95 NIV Bilevel 12/27/18 12:38 103.0 116 20 104/61 (75) 96 NIV Bilevel 12/27/18 12:22 117 36 96 80.00 12/27/18 12:08 80 NIV Bilevel 12/27/18 12:08 103.7 125 20 115/68 (84) 90 NIV/CPAP I & O 12/28/18 07:00 Intake Total 5214 ml Output Total 1275 ml Balance 3939 ml Height & Weight Height: 5'7.00" Weight: 222lbs. 3.0oz. 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 Metabolic acidosis -IVF -Monitor Elevated troponin - probably secondary to hypoxia -Cardiology following -repeat troponin Hypotension -IVF -Monitor Hypophos -replace KEYONA EVANS DO Dec 28, 2018 05:09
[2018-12-28] MEDS: NS IV 1000 ML 1,000 ML IV SCH ×3 (06:42→18:49)
[2018-12-28] MEDS: PROPOFOL DRIP (ICU) 100 ML IV SCH ×3 (06:43→21:24)
[2018-12-28] MEDS ORDERED: FLU QUADRIvalent (5+ YOA) 2018-2019 (AFLURIA) 0.5 ML IM ONE (07:00)
[2018-12-28] MEDS: VANCOMYCIN 1 GM/NS 250 ML IVPB IV SCH ×2 (08:06)
--- NOTE | 2018-12-28 09:17 | Diagnostic Imaging Report ---
Indication: Dyspnea. Comparison: 12/27/2018. Discussion: Single portable upright view of the chest was obtained. Mild cardiomegaly is stable. Endotracheal tube, enteric tube, and left-sided central venous catheter are stable. Worsening alveolar infiltrates bilaterally, right greater than left. Findings are nonspecific and could be seen with failure or pneumonia. No pleural fluid or pneumothorax. Impression: 1. Stable support lines and catheter. 2. Worsening infiltrates. Dictated by: Dictated on workstation # [id number]
[2018-12-28] MEDS: ENOXAPARIN 40 MG/0.4 ML (LOVENOX) SYR SC SCH (09:23)
[2018-12-28] MEDS: PANTOPRAZOLE 40 MG (PROTONIX) VIAL IV SCH (09:23)
[2018-12-28] MEDS: ASPIRIN 81 MG CHEW (CHILDREN'S ASA) PO SCH (09:24)
--- NOTE | 2018-12-28 12:56 | History & Physical-Hospitalist ---
History of Present Illness HPI/Chief Complaint CC: Severe sepsis HPI: This is a 58-year-old white male of Dr. Lacey who presented to the ER with confusion and hypotension requiring central line placement and ICU admission later requiring intubation. No other details are obtained from the patient due to intubation. Currently patient is on pressor therapy and to prevent and stable. Source: RN/MD Exam Limitations: clinical condition Date Seen 12/28/18 Time Seen by a Provider: 11:00 Attending Physician Ginger Jean DO PCP Abelino Lacey DO Referring Physician Date of Admission Dec 27, 2018 at 16:14 Home Medications & Allergies Home Medications Reviewed patient Home Medication Reconciliation performed by pharmacy medication reconciliations physical therapist technician and/or nursing. Patients Allergies have been reviewed. Allergies Allergies Coded Allergies No Known Drug Allergies (Unverified12/07/16) Past Jlnlbfr-Alhtgh-Hrtrtf Hx Past Med/Social Hx: Reviewed Nursing Past Med/Soc Hx, Reviewed and Corrections made Patient Social History Marrital Status: single Employed/Student: unemployed Alcohol Use: Denies Use Recreational Drug Use: No (hx of cocaine use) Smoking Status: Unknown if Ever Smoked Type Used: Cigarettes Recent Foreign Travel: No Contact w/other who traveled: No Recent Hopitalizations: No Recent Infectious Disease Expo: No Immunizations Up To Date Tetanus Booster (TDap): Unknown Seasonal Allergies Seasonal Allergies: No Past Medical History Cardiac: Hypertension Gastrointestinal: Gastroesophageal Reflux, Hepatitis Cancer: Colon Psychosocial: Anxiety, Violent Behavior, Depression History of Blood Disorders: Yes (HEP C ) Family History No Pertinent Family Hx Review of Systems Constitutional: see HPI Physical Exam Physical Exam Vital Signs Vital Signs - First Documented 12/27/18 12/27/18 12:22 16:30 O2 Flow Rate 80.00 FiO2 70 Capillary Refill : Less Than 3 SecondsLess Than 3 Seconds Height, Weight, BMI Height: 5'7.00" Weight: 219lbs. 8.0oz. 99.114290mx; 34.8 BMI Method:Stated General Appearance: No Apparent Distress, WD/WN, Chronically ill, Other ( intubated) Respiratory: Crackles, Decreased Breath Sounds, Wheezing Cardiovascular: Regular Rate, Rhythm, No Edema Neurologic/Psychiatric: Other (sedated) Results Results/Procedures Labs Laboratory Tests 12/27/18 12:10 12/27/18 16:50 3/10/19 03:45 Patient resulted labs reviewed. Assessment/Plan Admission Diagnosis Assessment: Acute on chronic respiratory failure Pneumonia with severe sepsis on Vanc and Zosyn Metabolic acidosis Elevated troponin Hypotension requiring pressor therapy Severe and chronic debility requiring NH placement permanently Plan: Intubation Abx IVF Levophed Admission Status: Inpatient Order (span 2 midnights) Reason for Inpatient Admission: Septic shock requires 4 days of inpt Diagnosis/Problems Diagnosis/Problems (1) Bilateral pneumonia Status: Acute Qualifiers: Pneumonia type: due to unspecified organism Lung location: lower lobe of lung Qualified Codes: J18.1 - Lobar pneumonia, unspecified organism (2) COPD exacerbation Status: Acute (3) Elevated troponin Status: Acute (4) Respiratory failure Status: Acute Qualifiers: Chronicity: acute Respiratory failure complication: hypoxia and hypercapnia Qualified Codes: J96.01 - Acute respiratory failure with hypoxia; J96.02 - Acute respiratory failure with hypercapnia (5) Septic shock Status: Acute Clinical Quality Measures DVT/VTE Risk/Contraindication: Risk Factor Score Per Nursin RFS Level Per Nursing on Admit: 4+=Very High GINGER JEAN DO Dec 28, 2018 12:55
[2018-12-28] MEDS ORDERED: TROUGH ORDER-PHARMACY XX NR ×2 (15:00→23:00)
--- NOTE | 2018-12-28 15:13 | Consultation-Cardiology ---
HPI-Cardiology Cardiology Consultation: Date of Consultation 12/28/18 Time Seen by a Provider: 13:20 Date of Admission 12/27/18 Attending Physician Ginger Jean DO Admitting Physician Art Casanova DO Consulting Physician ERIN HUTCHINSON MD, MA, FACP, FACC, [facility] [place], CCDS Physician requesting consult: Dr Jean HPI: Chief Complaint: Reason for consultation: Elevated troponin HPI 58 yo man, [place], brought [place] yesterday with decreasing responsiveness and hypoxia. Diagnosed with pneumonia. Resp status continued to worsen and he had to be intubated and put on mech vent. He is not able to provide any history at this time. He sees us in card f/u and his previously documented illnesses are listed below Review of Systems-Cardiology Review of Systems Constitutional: other (Not able to proved ROS; on mech vent) PNA-[id number]-[id number] Hx Patient Social History Marrital Status: single Employed/Student: unemployed Alcohol Use: Denies Use Recreational Drug Use: No (hx of cocaine use) Smoking Status: Unknown if Ever Smoked Type Used: Cigarettes Recent Foreign Travel: No Recent Infectious Disease Expo: No Immunizations Up To Date Tetanus Booster (TDap): Unknown Past Medical History PMH As described under Assessment. Family Medical History Family Medical History: Unable to obtain d/t intubation and sedation Allergies and Home Medications Allergies Coded Allergies: No Known Drug Allergies (Unverified , 12/07/16) Home Medications Acetaminophen 325 Mg Tablet, 650 MG PO Q6H PRN for PAIN-MILD, (Reported) TAKES 2 (325MG) TABLETS Aripiprazole 20 Mg Tablet, 20 MG PO DAILY, (Reported) Aspirin 81 Mg Tablet.dr, 81 MG PO DAILY, (Reported) Benzonatate 200 Mg Capsule, 200 MG PO Q8H PRN for COUGH, (Reported) Budesonide/Formoterol Fumarate 10.2 Gm Hfa.aer.ad, 2 PUFF IH BID, (Reported) Carbamide Peroxide 15 Ml Drops, 5 DROPS EACH EAR Q12H PRN for EAR WAX BUILD UP, (Reported) Carboxymethylcellulose Sodium 15 Ml Drops, 1 DROP OU Q4H PRN for DRY EYES, ( Reported) Cefdinir 300 Mg Capsule, 300 MG PO BID Prescribed by: ART CASANOVA on 10/03/18 0801 Clonazepam 0.5 Mg Tablet, 0.5 MG PO BID, (Reported) Divalproex Sodium 125 Mg Cap.sprink, 125 MG PO TID, (Reported) Escitalopram Oxalate 20 Mg Tablet, 40 MG PO DAILY, (Reported) TAKES 2 (20MG) TABLETS Furosemide 20 Mg Tablet, 20 MG PO DAILY, (Reported) Ipratropium/Albuterol Sulfate 3 Ml Ampul.neb, 3 ML NEB Q6H, (Reported) Lisinopril 2.5 Mg Tablet, 2.5 MG PO HS, (Reported) Metoprolol Tartrate 25 Mg Tablet, 25 MG PO BID, (Reported) HOLD FOR SYSTOLIC BP < 100 Multivitamin 1 Each Tablet, 1 TAB PO DAILY, (Reported) Ondansetron HCl 4 Mg Tab, 4 MG PO Q4H PRN for NAUSEA/VOMITING-1ST LINE, ( Reported) Pantoprazole Sodium 40 Mg Tablet.dr, 40 MG PO DAILY, (Reported) Patient Home Medication List Home Medication List Reviewed: Yes Physical Exam-Cardiology Physical Exam Vital Signs/I&O 12/28/18 12/28/18 12/28/18 12/28/18 03:40 04:00 04:00 04:05 Temp 97.9 Pulse 67 65 Resp 24 24 B/P (MAP) 119/56 (77) Pulse Ox 96 95 95 O2 Delivery Mechanical Ventilator Mechanical Ventilator O2 Flow Rate 50.00 50.00 FiO2 50 50 12/28/18 12/28/18 12/28/18 12/28/18 05:00 06:00 06:15 06:43 Pulse 87 76 75 Resp 23 22 24 B/P (MAP) 110/52 (71) 110/51 (70) 114/52 Pulse Ox 94 93 96 O2 Delivery Mechanical Ventilator Mechanical Ventilator Mechanical Ventilator O2 Flow Rate 50.00 50.00 50.00 FiO2 50 12/28/18 12/28/18 12/28/18 12/28/18 07:00 07:00 08:00 08:00 Temp 98.7 Pulse 86 86 70 Resp 24 23 B/P (MAP) 91/45 (60) 106/52 (70) Pulse Ox 94 94 O2 Delivery Mechanical Ventilator Mechanical Ventilator O2 Flow Rate 50.00 50.00 12/28/18 12/28/18 12/28/18 12/28/18 08:00 08:23 09:00 10:00 Pulse 88 68 65 Resp 24 24 23 B/P (MAP) 120/53 (75) 119/52 (74) Pulse Ox 94 95 95 94 O2 Delivery Mechanical Ventilator Mechanical Ventilator Mechanical Ventilator O2 Flow Rate 50.00 50.00 FiO2 50 50 12/28/18 12/28/18 12/28/18 12/28/18 10:10 11:00 12:00 12:00 Temp 99.6 Pulse 64 71 71 Resp 24 25 23 B/P (MAP) 119/52 (74) 132/53 (79) Pulse Ox 94 94 94 O2 Delivery Mechanical Ventilator Mechanical Ventilator O2 Flow Rate 50.00 50.00 FiO2 50 12/28/18 12/28/18 12/28/18 12:00 13:00 14:30 Pulse 69 72 Resp 24 Pulse Ox 95 94 O2 Delivery Mechanical Ventilator FiO2 50 50 12/28/18 00:00 Intake Total 4550 ml Output Total 975 ml Balance 3575 ml Capillary Refill : Less Than 3 SecondsLess Than 3 Seconds Constitutional: other (intubated and sedated and on mech vent) HEENT: PERRL; No xanthelasmas are seen Neck: No carotid bruit; carotid pulses are 2 + bilaterally, with good upstrokes Respiratory: No accessory muscle use; other (fair air entry; scattered rhonchi) Cardiovascular: regular rate-rhythm, S1 and S2, systolic murmur (soft LEANN at card base) Gastrointestinal: soft; No guarding, No rebound; audible bowel sounds Extremities: No clubbing, No cyanosis, No significant edema Neurologic/Psychiatric: other (not able to coperate with a neuro exam; on mech vent) Skin: normal color, warm/dry; No diaphoresis, No mottled Data Review Labs Laboratory Tests 12/27/18 16:50: Sodium Level 137, Potassium Level 5.4H, Chloride Level 102, Carbon Dioxide Level 24, Anion Gap 11, Blood Urea Nitrogen 31H, Creatinine 1.15, Estimat Glomerular Filtration Rate > 60, BUN/Creatinine Ratio 27, Glucose Level 142H, Lactic Acid Level 0.92, Calcium Level 7.8L, Corrected Calcium 8.2L, Total Bilirubin 0.7, Aspartate Amino Transf (AST/SGOT) 46H, Alanine Aminotransferase ( ALT/SGPT) 26, Alkaline Phosphatase 48, Total Protein 6.5, Albumin 3.5, Triglycerides Level 107 12/27/18 17:00: Blood Gas Puncture Site LT RAD, Blood Gas Patient Temperature 97.0, Arterial Blood pH 7.21*L, Arterial Blood Partial Pressure CO2 78*H, Arterial Blood Partial Pressure O2 126H, Arterial Blood HCO3 30H, Arterial Blood Total CO2 32.8H, Arterial Blood Oxygen Saturation 98, Arterial Blood Base Excess 2.8H, Jeff Test YES-POS, Blood Gas Ventilator Setting NO, Blood Gas Inspired Oxygen 70% BIPAP 12/27/18 20:25: Blood Gas Puncture Site LEFT RADIAL, Blood Gas Patient Temperature 96.6, Arterial Blood pH 7.24*L, Arterial Blood Partial Pressure CO2 63H, Arterial Blood Partial Pressure O2 291H, Arterial Blood HCO3 27, Arterial Blood Total CO2 28.8, Arterial Blood Oxygen Saturation 100, Arterial Blood Base Excess 0.0, Jeff Test YES-POS, Blood Gas Ventilator Setting YES, Blood Gas Inspired Oxygen 100% 12/27/18 23:38: Glucometer 189H 12/28/18 03:45: White Blood Count 15.1H, Red Blood Count 5.33, Hemoglobin 15.4, Hematocrit 49, Mean Corpuscular Volume 91, Mean Corpuscular Hemoglobin 29, Mean Corpuscular Hemoglobin Concent 32, Red Cell Distribution Width 18.7H, Platelet Count 99L, Mean Platelet Volume 12.3H, Neutrophils (%) (Auto) 92H, Lymphocytes (%) (Auto) 5L, Monocytes (%) (Auto) 3, Eosinophils (%) (Auto) 0, Basophils (%) (Auto) 0, Neutrophils # (Auto) 13.9H, Lymphocytes # (Auto) 0.8L, Monocytes # (Auto) 0.4, Eosinophils # (Auto) 0.0, Basophils # (Auto) 0.0, Blood Gas Puncture Site LEFT RADIAL, Blood Gas Patient Temperature 98.4, Arterial Blood pH 7.30*L, Arterial Blood Partial Pressure CO2 50H, Arterial Blood Partial Pressure O2 91, Arterial Blood HCO3 24, Arterial Blood Total CO2 25.1, Arterial Blood Oxygen Saturation 97, Arterial Blood Base Excess -2.0, Jeff Test YES-POS, Blood Gas Ventilator Setting YES, Blood Gas Inspired Oxygen 50%, Sodium Level 141, Potassium Level 4.3, Chloride Level 108H, Carbon Dioxide Level 20L, Anion Gap 13, Blood Urea Nitrogen 29H, Creatinine 1.11, Estimat Glomerular Filtration Rate > 60, BUN/ Creatinine Ratio 26, Glucose Level 199H, Calcium Level 7.5L, Phosphorus Level 1.5L, Magnesium Level 2.0, Troponin I 1.189*H 12/28/18 05:03: Glucometer 182H 12/28/18 13:02: Glucometer 174H Microbiology 12/27/18 Blood Culture - Preliminary, Resulted No growth 12/27/18 Influenza Types A,B Antigen (TESSY) - Final, Complete 12/27/18 Urine Culture - Final, Complete NO GROWTH A/P-Cardiology Assessment/Admission Diagnosis Acute resp failure probably due to R-sided pneumonia Hypoxia due to ac resp failure Elevated troponin due to hypoxia (type 2 MO). No evidence of Type 1 MO Cardiac cath of May 2017: angiographically mild CAD. LVEF 55-60%. LVEDP at the top limit of normal. No significant MR Echo of 09/25/18: LVEF 60-65%, PASP 25 mmHg H/o gallstones. Abdominal u/s of May 2017: the gallbladder is most likely filled with calculi - being followed by Dr. Narayan No evidence of AAA on abd ao screening scan of 04/18/18 Seg pressures of 04/08/18 did not show evidence of significant obstructive PAD COPD Fam h/o early CAD (father to [place] in his early 50s) Chronic tobacco use Hypertension Bipolar disorder Chronic mild, intermittent leg swelling Chronic impaired (somewhat slurred) speech Carotid art dz: 50-60% R ICA and 60-79% L ICA stenoses on carotid u/s of Oct 2018 Discussion and Recomendations * Continue current therapy * ASA via OGT * Monitor and correct labs Clinical Quality Measures DVT/VTE Risk/Contraindication: Risk Factor Score Per Nursin RFS Level Per Nursing on Admit: 4+=Very High ERIN HUTCHINSON MD FACP [facility] Dec 28, 2018 15:13
--- NOTE | 2018-12-28 16:10 | NUR ---
Vanco Trough Result - 23.4, hold vanco. Repeat trough in 8 hours, i.e., 12/28 @ 2300. IF trough result is LESS than 20, restart Vancomycin 1gm at every 12 hour schedule.
[2018-12-28] MEDS ORDERED: fentaNYL INJECTION 100 MCG/2 ML AMP ONE (20:03)
[2018-12-28] MEDS: DEXMEDETOMIDINE INJECTION 200 MCG in NS (IVPB) 50 ML IV SCH (21:15)
[2018-12-28] MEDS: fentaNYL INJECTION 100 MCG/2 ML AMP IV PRN ×3 (21:16→23:59)
[2018-12-29] VITALS (32 sets, daily range): BP systolic 56–164; BP diastolic 42–77
[2018-12-29] MEDS ORDERED: VANCOMYCIN 1 GM/NS 250 ML IVPB IV SCH ×2
[2018-12-29] MEDS: DEXMEDETOMIDINE INJECTION 200 MCG in NS (IVPB) 50 ML IV SCH ×2 (00:21→04:07)
[2018-12-29] MEDS: fentaNYL INJECTION 100 MCG/2 ML AMP IV PRN ×4 (00:33→05:12)
[2018-12-29] MEDS: methylPREDNISolone 40 MG/ML (Solu-MEDROL) VIAL IV SCH ×4 (00:37→17:35)
[2018-12-29] MEDS: inSUlin ASPART (NovoLOG) 1 UNIT/0.01 ML (CHARGE PER UNIT) SQ SCH ×4 (00:38→17:34)
[2018-12-29] MEDS: RT-ALBUTEROL/IPRATROPIUM 3 ML (DUONEB) VIAL INH SCH ×6 (01:39→22:12)
[2018-12-29] MEDS: PROPOFOL DRIP (ICU) 100 ML IV SCH ×6 (01:49→21:39)
[2018-12-29] MEDS: VASOPRESSIN INJECTION 20 UNIT in NS (IVPB) 100 ML IV SCH ×3 (02:18→19:14)
[2018-12-29 03:49] LABS: BASOPHILS % (AUTO) 0 % (0-10); EOSINOPHILS % (AUTO) 0 % (0-10); HEMATOCRIT 46 % (40-54); HEMOGLOBIN 14.9 G/DL (13.3-17.7); LYMPHOCYTES # (AUTO) 0.6 X 10^3 (1.0-4.0); LYMPHOCYTES % (AUTO) 5 % (12-44); MEAN CORPUSCULAR HEMOGLOBIN 29 PG (25-34); MEAN CORPUSCULAR HGB CONC 32 G/DL (32-36); MEAN CORPUSCULAR VOLUME 91 FL (80-99); MEAN PLATELET VOLUME 11.3 FL (7.4-10.4); MONOCYTES # (AUTO) 0.5 X 10^3 (0.0-1.0); MONOCYTES % (AUTO) 4 % (0-12); NEUTROPHILS # (AUTO) 11.1 X 10^3 (1.8-7.8); NEUTROPHILS % (AUTO) 91 % (42-75); PLATELET COUNT 95 10^3/uL (130-400); RED CELL DISTRIBUTION WIDTH 19.1 % (10.0-14.5); WHITE BLOOD COUNT 12.1 10^3/uL (4.3-11.0)
[2018-12-29 03:50] LABS: ABG OXYGEN SATURATION 97 % (94-100); ABG PCO2 51 MMHG (35-45); ABG PO2 97 MMHG (79-93); ABG TCO2 25.9 MMOL/L (21.0-31.0)
[2018-12-29 03:53] LABS: ALLENS TEST ART LINE; INSPIRED O2 50%; PATIENT TEMP 99.9; VENTILATOR YES
[2018-12-29 04:09] LABS: BUN/CREATININE RATIO 20; CALCIUM 7.8 MG/DL (8.5-10.1); CARBON DIOXIDE 22 MMOL/L (21-32); CHLORIDE 115 MMOL/L (98-107); CREATININE SERUM 0.97 MG/DL (0.60-1.30); GFR ESTIMATED > 60; GLUCOSE 202 MG/DL (70-105); MAGNESIUM 2.1 MG/DL (1.8-2.4); PHOSPHORUS 1.2 MG/DL (2.3-4.7); POTASSIUM 3.5 MMOL/L (3.6-5.0); SODIUM 148 MMOL/L (135-145)
--- NOTE | 2018-12-29 04:43 | Pulmonary Progress Note ---
Subjective Time Seen by a Provider: 04:48 Subjective/Events-last exam Off Levophed. Sedated on vent Sepsis Event Evaluation Height, Weight, BMI Height: 5'7.00" Weight: 219lbs. 8.0oz. 99.278792bv; 34.8 BMI Method:Stated Focused Exam Lactate Level 12/27/18 12:10: Lactic Acid Level 1.42 12/27/18 16:50: Lactic Acid Level 0.92 Time of Focused Exam: 1440 Exam Exam Vital Signs Date Time Temp Pulse Resp B/P (MAP) Pulse Ox O2 Delivery O2 Flow Rate FiO2 12/29/18 04:00 126 23 136/54 (81) 95 Mechanical Ventilator 50.00 12/29/18 04:00 93 Mechanical Ventilator 50 12/29/18 04:00 99.9 12/29/18 03:00 92 24 146/54 (84) 94 Mechanical Ventilator 50.00 12/29/18 02:00 86 24 137/52 (80) 94 Mechanical Ventilator 50.00 12/29/18 01:49 146/56 12/29/18 01:39 84 24 94 50 12/29/18 01:00 86 12/29/18 01:00 86 25 152/56 (88) 94 Mechanical Ventilator 50.00 12/29/18 00:00 93 Mechanical Ventilator 50 12/29/18 00:00 100.1 12/29/18 00:00 93 23 160/59 (92) 94 Mechanical Ventilator 50.00 12/28/18 23:00 116 23 153/63 (93) 95 Mechanical Ventilator 50.00 12/28/18 22:20 80 24 94 50 12/28/18 22:00 78 24 146/66 (92) 94 Mechanical Ventilator 50.00 12/28/18 21:24 151/65 12/28/18 21:00 85 23 117/58 (77) 94 Mechanical Ventilator 50.00 12/28/18 20:00 99.1 12/28/18 20:00 93 20 137/65 (89) 94 Mechanical Ventilator 50.00 12/28/18 20:00 93 Mechanical Ventilator 50 12/28/18 19:00 69 24 130/52 (78) 95 Mechanical Ventilator 50.00 12/28/18 19:00 74 12/28/18 18:58 80 24 95 50 3/10/19 18:00 70 25 109/45 (66) 94 Mechanical Ventilator 50.00 12/28/18 17:00 72 24 122/48 (72) 94 Mechanical Ventilator 50.00 12/28/18 16:39 99.4 84 30 111/47 92 Mechanical Ventilator 50.00 12/28/18 16:12 91 24 91 50 12/28/18 16:00 95 Mechanical Ventilator 50 12/28/18 16:00 71 14 108/44 (65) 94 Mechanical Ventilator 50.00 12/28/18 16:00 99.4 12/28/18 15:00 92 15 123/56 (78) 90 Mechanical Ventilator 50.00 12/28/18 14:30 72 24 94 50 12/28/18 14:00 68 24 128/52 (77) 94 Mechanical Ventilator 50.00 12/28/18 13:00 69 12/28/18 13:00 69 34 126/52 (76) 94 Mechanical Ventilator 50.00 12/28/18 12:00 95 Mechanical Ventilator 50 12/28/18 12:00 99.6 12/28/18 12:00 71 23 132/53 (79) 94 Mechanical Ventilator 50.00 12/28/18 11:00 71 25 119/52 (74) 94 Mechanical Ventilator 50.00 12/28/18 10:10 64 24 94 50 12/28/18 10:00 65 23 119/52 (74) 94 Mechanical Ventilator 50.00 12/28/18 09:00 68 24 120/53 (75) 95 Mechanical Ventilator 50.00 12/28/18 08:23 88 24 95 50 12/28/18 08:00 94 Mechanical Ventilator 50 12/28/18 08:00 98.7 12/28/18 08:00 70 23 106/52 (70) 94 Mechanical Ventilator 50.00 12/28/18 07:00 86 12/28/18 07:00 86 24 91/45 (60) 94 Mechanical Ventilator 50.00 12/28/18 06:43 114/52 Mechanical Ventilator 50.00 12/28/18 06:15 75 24 96 50 12/28/18 06:00 76 22 110/51 (70) 93 Mechanical Ventilator 50.00 12/28/18 05:00 87 23 110/52 (71) 94 Mechanical Ventilator 50.00 I & O 12/29/18 07:00 Intake Total 30 ml Output Total 1215 ml Balance -1185 ml Height & Weight Height: 5'7.00" Weight: 219lbs. 8.0oz. 99.210467pl; 34.8 BMI Method:Stated General Appearance: No Apparent Distress, WD/WN, Chronically ill, Other ( intubated) HEENT: PERRL/EOMI, Pharynx Normal, Other (Mucous membranes dry) Neck: Normal Inspection, Supple Respiratory: Crackles, Decreased Breath Sounds, Wheezing Cardiovascular: Regular Rate, Rhythm, No Edema Capillary Refill: Less Than 3 Seconds Peripheral Pulses: 3+ Radial Pulses (L) Extremity: Normal Inspection, No Pedal Edema Neurologic/Psychiatric: Other (sedated) Results Lab Laboratory Tests 12/27/18 12:10 12/27/18 16:50 12/28/18 03:45 12/29/18 03:35 Assessment/Plan Assessment/Plan -Acute on chronic respiratory failure EF 60 65% -cont ventilator -Solumedrol -Start TF with [facility] -KVO IVF -Give lasix 40mg x 1 Pneumonia with severe sepsis -Worsening CXR - will plan from bronchoscopy in AM -IVF -vanco and Zosyn -Ruiz cultures -INflu neg Mediastinal lymphadenopathy probably reactive however present and worse since r/o cancer -Will need to repeat CT scan 8 wks after discharge. COPDAE -SVNS -steroids Metabolic acidosis - improved -IVF -Monitor Elevated troponin - probably secondary to hypoxia -Cardiology following -repeat troponin Hypotension - now resolved -Levophed is off -Monitor Hypophos -replace Tobacco use -Education KEYONA EVANS DO Dec 29, 2018 04:43
[2018-12-29] MEDS ORDERED: POTASSIUM PHOSPHATE INJ 30 MM in NS (IVPB) 250 ML IV ONE (04:45)
[2018-12-29] MEDS ORDERED: POTASSIUM CHLORIDE INJ 20 MEQ in 1/2 NS IV SOLUTION 1,000 ML IV SCH (04:45)
[2018-12-29] MEDS ORDERED: FUROSEMIDE 40 MG/4 ML INJ (LASIX) IVP ONE (04:45)
[2018-12-29] MEDS: POTASSIUM CL 10MEQ/50ML IVPB 50 ML IV SCH ×3 (05:12→05:41)
[2018-12-29] MEDS: NS IV 1000 ML 1,000 ML IV SCH (05:40)
[2018-12-29] MEDS: MAGNESIUM 1 GM/100 ML IVPB 100 ML IV SCH (05:41)
[2018-12-29] MEDS: KCL 20 MEQ TAB (K-DUR) PO SCH (05:41)
[2018-12-29] MEDS ORDERED: 1/2 NS W/KCL 20 MEQ/L 1,000 ML IV ONE (05:50)
[2018-12-29] MEDS ORDERED: NS (IVPB) 0 ML ONE (05:52)
[2018-12-29] MEDS ORDERED: PIPERACILLIN/TAZO 4.5 GM VIAL (ZOSYN) IV ONE (05:52)
[2018-12-29] MEDS: PIPERACILLIN/TAZO 4.5 GM/NS 100 ML IV SCH ×6 (05:59→20:32)
[2018-12-29] MEDS: fentaNYL INJECTION 1,250 MCG in NS (IVPB) 250 ML IV SCH (07:09)
[2018-12-29] MEDS ORDERED: 1/2 NS W/KCL 20 MEQ/L 1,000 ML IV SCH (07:30)
--- NOTE | 2018-12-29 07:42 | Progress Note (SOAP) ---
Subjective Time Seen by a Provider: 07:39 Subjective/Events-last exam Patient on vent. Patient resting comfortably. Patient off vasopressor. Patient stable in his unstable state Focused Exam Lactate Level 12/27/18 12:10: Lactic Acid Level 1.42 12/27/18 16:50: Lactic Acid Level 0.92 Time of Focused Exam: 1440 Objective Exam Vital Signs Date Time Temp Pulse Resp B/P (MAP) Pulse Ox O2 Delivery O2 Flow Rate FiO2 12/29/18 06:29 101 24 94 50 12/29/18 06:05 138/57 12/29/18 06:00 91 24 155/59 (91) 94 Mechanical Ventilator 50.00 12/29/18 05:00 106 24 155/59 (91) 95 Mechanical Ventilator 50.00 12/29/18 04:00 126 23 136/54 (81) 95 Mechanical Ventilator 50.00 12/29/18 04:00 93 Mechanical Ventilator 50 12/29/18 04:00 99.9 12/29/18 03:00 92 24 146/54 (84) 94 Mechanical Ventilator 50.00 12/29/18 02:00 86 24 137/52 (80) 94 Mechanical Ventilator 50.00 12/29/18 01:49 146/56 12/29/18 01:39 84 24 94 50 12/29/18 01:00 86 12/29/18 01:00 86 25 152/56 (88) 94 Mechanical Ventilator 50.00 12/29/18 00:00 93 Mechanical Ventilator 50 12/29/18 00:00 100.1 12/29/18 00:00 93 23 160/59 (92) 94 Mechanical Ventilator 50.00 12/28/18 23:00 116 23 153/63 (93) 95 Mechanical Ventilator 50.00 12/28/18 22:20 80 24 94 50 12/28/18 22:00 78 24 146/66 (92) 94 Mechanical Ventilator 50.00 12/28/18 21:24 151/65 12/28/18 21:00 85 23 117/58 (77) 94 Mechanical Ventilator 50.00 12/28/18 20:00 99.1 12/28/18 20:00 93 20 137/65 (89) 94 Mechanical Ventilator 50.00 12/28/18 20:00 93 Mechanical Ventilator 50 12/28/18 19:00 69 24 130/52 (78) 95 Mechanical Ventilator 50.00 12/28/18 19:00 74 12/28/18 18:58 80 24 95 50 12/28/18 18:00 70 25 109/45 (66) 94 Mechanical Ventilator 50.00 12/28/18 17:00 72 24 122/48 (72) 94 Mechanical Ventilator 50.00 12/28/18 16:39 99.4 84 30 111/47 92 Mechanical Ventilator 50.00 12/28/18 16:12 91 24 91 50 12/28/18 16:00 95 Mechanical Ventilator 50 12/28/18 16:00 71 14 108/44 (65) 94 Mechanical Ventilator 50.00 12/28/18 16:00 99.4 12/28/18 15:00 92 15 123/56 (78) 90 Mechanical Ventilator 50.00 12/28/18 14:30 72 24 94 50 12/28/18 14:00 68 24 128/52 (77) 94 Mechanical Ventilator 50.00 12/28/18 13:00 69 12/28/18 13:00 69 34 126/52 (76) 94 Mechanical Ventilator 50.00 12/28/18 12:00 95 Mechanical Ventilator 50 12/28/18 12:00 99.6 12/28/18 12:00 71 23 132/53 (79) 94 Mechanical Ventilator 50.00 12/28/18 11:00 71 25 119/52 (74) 94 Mechanical Ventilator 50.00 12/28/18 10:10 64 24 94 50 12/28/18 10:00 65 23 119/52 (74) 94 Mechanical Ventilator 50.00 12/28/18 09:00 68 24 120/53 (75) 95 Mechanical Ventilator 50.00 12/28/18 08:23 88 24 95 50 12/28/18 08:00 94 Mechanical Ventilator 50 12/28/18 08:00 98.7 12/28/18 08:00 70 23 106/52 (70) 94 Mechanical Ventilator 50.00 I & O 12/29/18 07:00 Intake Total 30 ml Output Total 1570 ml Balance -1540 ml Capillary Refill : Less Than 3 SecondsLess Than 3 Seconds General Appearance: No Apparent Distress, WD/WN HEENT: Normal ENT Inspection Neck: Normal Inspection Respiratory: No Accessory Muscle Use, No Respiratory Distress Cardiovascular: Regular Rate, Rhythm, Tachycardia Gastrointestinal: non tender, soft Results Lab Laboratory Tests 12/29/18 03:35 Laboratory Tests 12/28/18 13:02: Glucometer 174H 12/28/18 15:35: Vancomycin Level Trough 23.4H 12/28/18 17:59: Glucometer 155H 12/28/18 23:10: Vancomycin Level Trough 16.1 12/29/18 00:37: Glucometer 175H 12/29/18 03:35: White Blood Count 12.1H, Red Blood Count 5.09, Hemoglobin 14.9, Hematocrit 46, Mean Corpuscular Volume 91, Mean Corpuscular Hemoglobin 29, Mean Corpuscular Hemoglobin Concent 32, Red Cell Distribution Width 19.1H, Platelet Count 95L, Mean Platelet Volume 11.3H, Neutrophils (%) (Auto) 91H, Lymphocytes (%) (Auto) 5L, Monocytes (%) (Auto) 4, Eosinophils (%) (Auto) 0, Basophils (%) (Auto) 0, Neutrophils # (Auto) 11.1H, Lymphocytes # (Auto) 0.6L, Monocytes # (Auto) 0.5, Eosinophils # (Auto) 0.0, Basophils # (Auto) 0.0, Sodium Level 148H, Potassium Level 3.5L, Chloride Level 115H, Carbon Dioxide Level 22, Anion Gap 11, Blood Urea Nitrogen 19H, Creatinine 0.97, Estimat Glomerular Filtration Rate > 60, BUN /Creatinine Ratio 20, Glucose Level 202H, Calcium Level 7.8L, Phosphorus Level 1.2L, Magnesium Level 2.1 12/29/18 03:40: Blood Gas Puncture Site LEFT ART LINE, Blood Gas Patient Temperature 99.9, Arterial Blood pH 7.30*L, Arterial Blood Partial Pressure CO2 51H, Arterial Blood Partial Pressure O2 97H, Arterial Blood HCO3 24, Arterial Blood Total CO2 25.9, Arterial Blood Oxygen Saturation 97, Arterial Blood Base Excess -1.0, Jeff Test ART LINE, Blood Gas Ventilator Setting YES, Blood Gas Inspired Oxygen 50% Microbiology 12/27/18 Blood Culture - Preliminary, Resulted No growth 12/27/18 MRSA Screen - Final, Complete MRSA not isolated 12/27/18 Urine Culture - Final, Complete NO GROWTH Assessment/Plan Assessment/Plan Assess & Plan/Chief Complaint Acute respiratory failure. Febrile. COPD. Elevated troponin. Hypotension. Sepsis. Hypoxia. COPD. Gallstones. Thrombocytopenia Clinical Quality Measures DVT/VTE Risk/Contraindication: Risk Factor Score Per Nursin RFS Level Per Nursing on Admit: 4+=Very High ART CASANOVA DO Dec 29, 2018 07:42
[2018-12-29] MEDS: ENOXAPARIN 40 MG/0.4 ML (LOVENOX) SYR SC SCH (08:23)
[2018-12-29] MEDS: ASPIRIN 81 MG CHEW (CHILDREN'S ASA) PO SCH (08:23)
[2018-12-29] MEDS: PANTOPRAZOLE 40 MG (PROTONIX) VIAL IV SCH (08:23)
--- NOTE | 2018-12-29 08:25 | Diagnostic Imaging Report ---
INDICATION: Dyspnea. TIME OF EXAM: 3:10 AM Comparison is made with prior exam from one day earlier. FINDINGS: Heart size stable. Support lines and catheters remain in place. Congestive changes appear to be improved when compared with yesterday. There may be some minimal residual infiltrate in the right perihilar region. No effusion or pneumothorax is seen. IMPRESSION: Improved aeration of both lungs when compared with exam one day earlier. Dictated by: Dictated on workstation # [id number]
--- NOTE | 2018-12-29 08:52 | NUR ---
Pt in vent with no family present at this time. Offered prayer. Pt is Rastafari.
--- NOTE | 2018-12-29 08:52 | Occ Therapy Progress Note ---
Therapy Progress Note OT orders received. Chart reviewed. Pt. on ventilator at this time. Will continue to monitor pt. [id number] EDILIA DIAZ OT Dec 29, 2018 08:52
--- NOTE | 2018-12-29 10:13 | Physical Therapy Progress Note ---
Therapy Progress Note PT eval orders received. Patient on vent. Will monitor. GLADYS MORA PT Dec 29, 2018 10:12
[2018-12-29] MEDS: ACETAMINOPHEN 325 MG TABLET PO PRN ×2 (11:38→20:33)
--- NOTE | 2018-12-29 11:39 | Progress Note-Cardiology ---
Cardiology SOAP Progress Note Subjective: Intubated and sedated Objective: I&O/Vital Signs 12/29/18 12/29/18 12/29/18 12/29/18 06:00 06:05 06:29 07:00 Pulse 91 101 115 Resp 24 23 B/P (MAP) 155/59 (91) 138/57 134/52 (79) Pulse Ox 94 94 94 O2 Delivery Mechanical Ventilator Mechanical Ventilator O2 Flow Rate 50.00 50.00 FiO2 50 12/29/18 12/29/18 12/29/18 12/29/18 07:18 08:00 08:00 08:00 Temp 100.1 Pulse 122 112 Resp 21 B/P (MAP) 129/51 (77) Pulse Ox 94 94 O2 Delivery Mechanical Ventilator Mechanical Ventilator O2 Flow Rate 50.00 FiO2 50 12/29/18 12/29/18 12/29/18 12/29/18 08:46 09:00 09:57 10:00 Temp 100.8 Pulse 110 108 99 97 Resp B/P (MAP) 122/56 (78) 105/49 105/49 (67) Pulse Ox 95 91 93 92 O2 Delivery Mechanical Ventilator Mechanical Ventilator Mechanical Ventilator O2 Flow Rate 40.00 40.00 40.00 FiO2 50 12/29/18 12/29/18 12/29/18 12/29/18 11:00 11:11 12:00 12:00 Temp 101.7 Pulse 92 98 Resp 17 24 B/P (MAP) 110/50 (70) Pulse Ox 92 92 91 O2 Delivery Mechanical Ventilator Mechanical Ventilator O2 Flow Rate 40.00 FiO2 40 40 12/29/18 12/29/18 12/29/18 12/29/18 12:00 13:00 13:23 14:00 Pulse 94 92 98 90 Resp 32 35 8 B/P (MAP) 90/42 (58) 112/50 (70) 104/58 (73) Pulse Ox 91 91 92 O2 Delivery Mechanical Ventilator Mechanical Ventilator Mechanical Ventilator O2 Flow Rate 40.00 40.00 40.00 12/29/18 12/29/18 12/29/18 12/29/18 14:13 14:43 15:00 16:00 Temp 99.7 Pulse 86 101 93 Resp 24 23 B/P (MAP) 120/53 137/55 (82) Pulse Ox 92 93 93 92 O2 Delivery Mechanical Ventilator Mechanical Ventilator Mechanical Ventilator O2 Flow Rate 40.00 40.00 FiO2 40 40 12/29/18 16:00 Temp 100.3 12/29/18 00:00 Intake Total 0 ml Output Total 820 ml Balance -820 ml Weight (Pounds): 225 Weight (Ounces): 8.0 Weight (Calculated Kilograms): 102.716346 Constitutional: other (intubated and sedated and on mech vent) Respiratory: No accessory muscle use; other (fair air entry; scattered rhonchi) Cardiovascular: regular rate-rhythm, S1 and S2, systolic murmur (soft LEANN at card base) Gastrointestional: soft; No guarding, No rebound; audible bowel sounds Extremities: No clubbing, No cyanosis, No significant edema Neurologic/Psychiatric: other (not able to coperate with a neuro exam; on mech vent) Skin: normal color, warm/dry; No diaphoresis, No mottled Results/Procedures: Labs Laboratory Tests 12/28/18 17:59: Glucometer 155H 12/28/18 23:10: Vancomycin Level Trough 16.1 12/29/18 00:37: Glucometer 175H 12/29/18 03:35: White Blood Count 12.1H, Red Blood Count 5.09, Hemoglobin 14.9, Hematocrit 46, Mean Corpuscular Volume 91, Mean Corpuscular Hemoglobin 29, Mean Corpuscular Hemoglobin Concent 32, Red Cell Distribution Width 19.1H, Platelet Count 95L, Mean Platelet Volume 11.3H, Neutrophils (%) (Auto) 91H, Lymphocytes (%) (Auto) 5L, Monocytes (%) (Auto) 4, Eosinophils (%) (Auto) 0, Basophils (%) (Auto) 0, Neutrophils # (Auto) 11.1H, Lymphocytes # (Auto) 0.6L, Monocytes # (Auto) 0.5, Eosinophils # (Auto) 0.0, Basophils # (Auto) 0.0, Sodium Level 148H, Potassium Level 3.5L, Chloride Level 115H, Carbon Dioxide Level 22, Anion Gap 11, Blood Urea Nitrogen 19H, Creatinine 0.97, Estimat Glomerular Filtration Rate > 60, BUN /Creatinine Ratio 20, Glucose Level 202H, Calcium Level 7.8L, Phosphorus Level 1.2L, Magnesium Level 2.1, Troponin I 1.114*H, B-Type Natriuretic Peptide 79.6 12/29/18 03:40: Blood Gas Puncture Site LEFT ART LINE, Blood Gas Patient Temperature 99.9, Arterial Blood pH 7.30*L, Arterial Blood Partial Pressure CO2 51H, Arterial Blood Partial Pressure O2 97H, Arterial Blood HCO3 24, Arterial Blood Total CO2 25.9, Arterial Blood Oxygen Saturation 97, Arterial Blood Base Excess -1.0, Jeff Test ART LINE, Blood Gas Ventilator Setting YES, Blood Gas Inspired Oxygen 50% 12/29/18 11:37: Glucometer 178H Microbiology 12/27/18 Blood Culture - Preliminary, Resulted No growth 12/27/18 Gram Stain - Final, Resulted 12/27/18 Sputum Culture - Preliminary, Resulted Corynebacterium striatum See Comments 12/27/18 Urine Culture - Final, Complete NO GROWTH A/P: Assessment: Acute resp failure probably due to R-sided pneumonia Hypoxia due to ac resp failure Elevated troponin due to hypoxia (type 2 RI). No evidence of Type 1 RI Cardiac cath of May 2017: angiographically mild CAD. LVEF 55-60%. LVEDP at the top limit of normal. No significant MR Echo of 09/25/18: LVEF 60-65%, PASP 25 mmHg H/o gallstones. Abdominal u/s of May 2017: the gallbladder is most likely filled with calculi - being followed by Dr. Narayan No evidence of AAA on abd ao screening scan of 04/18/18 Seg pressures of 04/08/18 did not show evidence of significant obstructive PAD COPD Fam h/o early CAD (father to RI in his early 50s) Chronic tobacco use Hypertension Bipolar disorder Chronic mild, intermittent leg swelling Chronic impaired (somewhat slurred) speech Carotid art dz: 50-60% R ICA and 60-79% L ICA stenoses on carotid u/s of Oct 2018 Plan: * Continue current therapy * Monitor and correct labs Physician Assessment Physician Assessment Intubated, sedated, on mech vent Lungs: fair to good air entry Cor: reg Ext: no c/c/e A&R * As documented in our note above that I updated (italics) and as noted below * Monitor labs * Prognosis guarded MENG PACHECO Dec 29, 2018 11:39 ERIN HUTCHINSON MD FACP [facility] Dec 29, 2018 17:02
[2018-12-29] MEDS ORDERED: NS IV 1000 ML 1,000 ML ONE (11:53)
[2018-12-29] MEDS ORDERED: NS 1000 ML IV BAG IV ONE (12:00)
[2018-12-29] MEDS ORDERED: CARB15DR87 EACH EAR (13:08)
[2018-12-29] MEDS ORDERED: ARIP20TA9 PO (13:08)
[2018-12-29] MEDS ORDERED: MULT-974 PO (13:08)
--- NOTE | 2018-12-29 13:08 | NUR ---
UPDATED MED REC WITH ORDER SUMMARY REPORT FROM [facility] AND [facility]
[2018-12-29] MEDS ORDERED: LACTATED RINGERS 1,000 ML IV ONE ×2 (13:55→14:15)
--- NOTE | 2018-12-29 14:21 | NUR ---
RT TRIED TO TURN PATIENTS O2 DOWN TO 30% BUT HE STARTED DESATTING SO RT INCREASED O2 BACK UP TO THE PREVIOUS 02 AT 40% Addendum: 12/29/18 at 1422 by JEREMIAS MEDEIROS RT PATIENT DESATTED TO 87% BEFORE O2 WAS INCREASED UP
[2018-12-29] MEDS: NOREPINEPHRINE 4 MG in NS (IVPB) 250 ML IV SCH ×3 (14:30→21:39)
[2018-12-29] MEDS: LACTATED RINGERS 1,000 ML IV SCH ×2 (14:54→21:38)
[2018-12-30] VITALS (35 sets, daily range): BP systolic 102–160; BP diastolic 49–83
[2018-12-30] MEDS: methylPREDNISolone 40 MG/ML (Solu-MEDROL) VIAL IV SCH ×4 (00:05→18:26)
[2018-12-30] MEDS: inSUlin ASPART (NovoLOG) 1 UNIT/0.01 ML (CHARGE PER UNIT) SQ SCH ×4 (00:11→18:27)
--- NOTE | 2018-12-30 00:15 | NUR ---
TUBE FEEDING OFF FOR BRONCHOSCOPY IN THE AM
[2018-12-30] MEDS: PROPOFOL DRIP (ICU) 100 ML IV SCH ×5 (01:51→21:47)
[2018-12-30] MEDS: RT-ALBUTEROL/IPRATROPIUM 3 ML (DUONEB) VIAL INH SCH ×6 (02:09→22:06)
[2018-12-30 03:24] LABS: ABG BASE EXCESS 3.7 MMOL/L (-2.5-2.5); ABG OXYGEN SATURATION 94 % (94-100); ABG PCO2 49 MMHG (35-45); ABG PH 7.39 (7.37-7.43); ABG PO2 75 MMHG (79-93); ABG TCO2 29.4 MMOL/L (21.0-31.0); BASOPHILS % (AUTO) 0 % (0-10); EOSINOPHILS % (AUTO) 0 % (0-10); HEMATOCRIT 46 % (40-54); HEMOGLOBIN 14.7 G/DL (13.3-17.7); LYMPHOCYTES # (AUTO) 0.7 X 10^3 (1.0-4.0); LYMPHOCYTES % (AUTO) 7 % (12-44); MEAN CORPUSCULAR HEMOGLOBIN 29 PG (25-34); MEAN CORPUSCULAR HGB CONC 32 G/DL (32-36); MEAN CORPUSCULAR VOLUME 91 FL (80-99); MEAN PLATELET VOLUME 11.4 FL (7.4-10.4); MONOCYTES # (AUTO) 0.5 X 10^3 (0.0-1.0); MONOCYTES % (AUTO) 5 % (0-12); NEUTROPHILS # (AUTO) 8.9 X 10^3 (1.8-7.8); NEUTROPHILS % (AUTO) 88 % (42-75); PLATELET COUNT 95 10^3/uL (130-400); RED CELL DISTRIBUTION WIDTH 19.6 % (10.0-14.5); WHITE BLOOD COUNT 10.2 10^3/uL (4.3-11.0)
[2018-12-30 03:26] LABS: ALLENS TEST ART LINE; INSPIRED O2 40%; PATIENT TEMP 101.6; VENTILATOR YES
[2018-12-30] MEDS: ACETAMINOPHEN 325 MG TABLET PO PRN (03:45)
[2018-12-30 03:46] LABS: BUN/CREATININE RATIO 22; CALCIUM 7.6 MG/DL (8.5-10.1); CARBON DIOXIDE 24 MMOL/L (21-32); CHLORIDE 113 MMOL/L (98-107); CREATININE SERUM 0.86 MG/DL (0.60-1.30); GFR ESTIMATED > 60; GLUCOSE 148 MG/DL (70-105); MAGNESIUM 1.7 MG/DL (1.8-2.4); PHOSPHORUS 1.9 MG/DL (2.3-4.7); SODIUM 149 MMOL/L (135-145)
[2018-12-30] MEDS: LACTATED RINGERS 1,000 ML IV SCH ×2 (03:53→21:48)
[2018-12-30] MEDS: MAGNESIUM 1 GM/100 ML IVPB 100 ML IV SCH ×2 (04:06→04:40)
[2018-12-30] MEDS: VASOPRESSIN INJECTION 20 UNIT in NS (IVPB) 100 ML IV SCH ×3 (04:06→21:47)
[2018-12-30] MEDS: POTASSIUM CL 10MEQ/50ML IVPB 50 ML IV SCH (04:40)
[2018-12-30] MEDS: PIPERACILLIN/TAZO 4.5 GM/NS 100 ML IV SCH ×2 (04:41)
--- NOTE | 2018-12-30 05:55 | NUR ---
RT AND DR EVANS AT BEDSIDE FOR BRONCHOSCOPY
[2018-12-30] MEDS: fentaNYL INJECTION 1,250 MCG in NS (IVPB) 250 ML IV SCH ×2 (06:15→23:12)
[2018-12-30] MEDS: KCL 20 MEQ TAB (K-DUR) PO SCH (06:16)
--- NOTE | 2018-12-30 06:35 | NUR ---
TUBE FEEDING RESUMED AT PREVIOUS SETTING OF 15 MLS/HR
--- NOTE | 2018-12-30 07:35 | Progress Note (SOAP) ---
Subjective Time Seen by a Provider: 07:31 Subjective/Events-last exam Patient on ventilator this a.m. Patient nonresponsive. Patient had a bronchoscopy this morning. Patient running a temperature. Elevated Leukocytosis better. Troponin 1 coming down. BNP yesterday within normal limits. Sputum culture Corynebacterium sensitive to vancomycin. Focused Exam Lactate Level 12/27/18 12:10: Lactic Acid Level 1.42 12/27/18 16:50: Lactic Acid Level 0.92 Time of Focused Exam: 1440 Objective Exam Vital Signs Date Time Temp Pulse Resp B/P (MAP) Pulse Ox O2 Delivery O2 Flow Rate FiO2 12/30/18 06:51 68 24 89 40 12/30/18 06:09 105 141/62 12/30/18 06:00 80 20 159/83 (108) 97 Mechanical Ventilator 40.00 12/30/18 05:00 100.5 12/30/18 05:00 74 23 122/52 (75) 91 Mechanical Ventilator 40.00 12/30/18 04:01 74 24 91 40 12/30/18 04:00 75 24 135/55 (81) 91 Mechanical Ventilator 40.00 12/30/18 04:00 93 Mechanical Ventilator 40 12/30/18 04:00 101.6 12/30/18 03:45 101.6 12/30/18 03:00 77 24 127/53 (77) 91 Mechanical Ventilator 40.00 12/30/18 02:10 85 24 90 40 12/30/18 02:00 100.8 12/30/18 02:00 80 24 116/53 (74) 91 Mechanical Ventilator 40.00 12/30/18 01:51 77 121/53 12/30/18 01:00 79 24 121/57 (78) 91 Mechanical Ventilator 40.00 12/30/18 01:00 80 12/30/18 00:30 76 24 92 40 12/30/18 00:00 101.6 12/30/18 00:00 93 Mechanical Ventilator 40 12/30/18 00:00 81 24 139/59 (85) 92 Mechanical Ventilator 40.00 12/29/18 23:00 80 23 125/60 (81) 91 Mechanical Ventilator 40.00 12/29/18 22:12 79 24 91 40 12/29/18 22:00 101.8 12/29/18 22:00 80 24 134/59 (84) 91 Mechanical Ventilator 40.00 12/29/18 21:39 83 119/54 12/29/18 21:03 101.8 12/29/18 21:00 86 24 125/57 (79) 91 Mechanical Ventilator 40.00 12/29/18 20:33 100.8 12/29/18 20:24 81 24 93 40 12/29/18 20:00 100.8 12/29/18 20:00 93 Mechanical Ventilator 40 12/29/18 20:00 99 23 125/60 (81) 90 Mechanical Ventilator 40.00 12/29/18 19:00 90 12/29/18 19:00 88 23 149/59 (89) 92 Mechanical Ventilator 40.00 12/29/18 18:27 82 24 91 40 12/29/18 18:00 81 24 114/51 (72) 91 Mechanical Ventilator 40.00 12/29/18 17:52 100.2 80 24 118/51 91 Mechanical Ventilator 40.00 12/29/18 17:00 82 23 124/53 (76) 92 Mechanical Ventilator 40.00 12/29/18 16:00 100.3 12/29/18 16:00 89 24 122/54 (76) 96 Mechanical Ventilator 40.00 12/29/18 16:00 92 Mechanical Ventilator 40 12/29/18 15:00 93 23 137/55 (82) 93 Mechanical Ventilator 40.00 12/29/18 14:43 99.7 101 25 120/53 93 Mechanical Ventilator 40.00 12/29/18 14:13 86 24 92 40 12/29/18 14:00 90 8 104/58 (73) 92 Mechanical Ventilator 40.00 12/29/18 13:23 98 12/29/18 13:00 92 35 112/50 (70) 91 Mechanical Ventilator 40.00 12/29/18 12:00 94 32 90/42 (58) 91 Mechanical Ventilator 40.00 12/29/18 12:00 91 Mechanical Ventilator 40 12/29/18 12:00 101.7 12/29/18 11:11 98 24 92 40 12/29/18 11:00 92 17 110/50 (70) 92 Mechanical Ventilator 40.00 12/29/18 10:00 97 21 105/49 (67) 92 Mechanical Ventilator 40.00 12/29/18 09:57 100.8 99 29 105/49 93 Mechanical Ventilator 40.00 12/29/18 09:00 108 23 122/56 (78) 91 Mechanical Ventilator 40.00 12/29/18 08:46 110 24 95 50 12/29/18 08:00 100.1 12/29/18 08:00 112 21 129/51 (77) 94 Mechanical Ventilator 50.00 12/29/18 08:00 94 Mechanical Ventilator 50 I & O 12/30/18 07:00 Intake Total 2262 ml Output Total 3650 ml Balance -1388 ml Capillary Refill : Less Than 3 SecondsLess Than 3 Seconds General Appearance: No Apparent Distress, WD/WN HEENT: Normal ENT Inspection Neck: Normal Inspection Respiratory: Lungs Clear, No Accessory Muscle Use, No Respiratory Distress Cardiovascular: Regular Rate, Rhythm, No Murmur Gastrointestinal: non tender, soft Results Lab Laboratory Tests 12/30/18 03:05 Laboratory Tests 12/29/18 11:37: Glucometer 178H 12/29/18 17:34: Glucometer 131H 12/29/18 17:50: Triglycerides Level 321H 12/30/18 00:10: Glucometer 138H 12/30/18 03:05: White Blood Count 10.2, Red Blood Count 5.03, Hemoglobin 14.7, Hematocrit 46, Mean Corpuscular Volume 91, Mean Corpuscular Hemoglobin 29, Mean Corpuscular Hemoglobin Concent 32, Red Cell Distribution Width 19.6H, Platelet Count 95L, Mean Platelet Volume 11.4H, Neutrophils (%) (Auto) 88H, Lymphocytes (%) (Auto) 7L, Monocytes (%) (Auto) 5, Eosinophils (%) (Auto) 0, Basophils (%) (Auto) 0, Neutrophils # (Auto) 8.9H, Lymphocytes # (Auto) 0.7L, Monocytes # (Auto) 0.5, Eosinophils # (Auto) 0.0, Basophils # (Auto) 0.0, Blood Gas Puncture Site ART LINE, Blood Gas Patient Temperature 101.6, Arterial Blood pH 7.39, Arterial Blood Partial Pressure CO2 49H, Arterial Blood Partial Pressure O2 75L, Arterial Blood HCO3 28H, Arterial Blood Total CO2 29.4, Arterial Blood Oxygen Saturation 94, Arterial Blood Base Excess 3.7H, Jeff Test ART LINE, Blood Gas Ventilator Setting YES, Blood Gas Inspired Oxygen 40%, Sodium Level 149H, Potassium Level 4.0, Chloride Level 113H, Carbon Dioxide Level 24, Anion Gap 12 , Blood Urea Nitrogen 19H, Creatinine 0.86, Estimat Glomerular Filtration Rate > 60, BUN/Creatinine Ratio 22, Glucose Level 148H, Calcium Level 7.6L, Phosphorus Level 1.9L, Magnesium Level 1.7L Microbiology 12/27/18 Blood Culture - Preliminary, Resulted No growth 12/27/18 Gram Stain - Final, Complete 12/27/18 Sputum Culture - Final, Complete Corynebacterium striatum See Comments 12/27/18 Urine Culture - Final, Complete NO GROWTH Assessment/Plan Assessment/Plan Assess & Plan/Chief Complaint Acute respiratory failure. Febrile. COPD. Elevated troponin. Hypotension. Sepsis. Hypoxia. COPD. Gallstones. Thrombocytopenia. . 12/30/18. Acute respiratory failure. Febrile. COPD. Hypotension resolved. Sepsis. Gallstones. Thrombocytopenia stabilized. Patient had a bronchoscopy this a.m. Clinical Quality Measures DVT/VTE Risk/Contraindication: Risk Factor Score Per Nursin RFS Level Per Nursing on Admit: 4+=Very High ART CASANOVA DO Dec 30, 2018 07:35
[2018-12-30] MEDS ORDERED: POTASSIUM PHOSPHATE INJ 30 MM in NS (IVPB) 250 ML IV ONE (07:45)
--- NOTE | 2018-12-30 07:46 | Pulmonary Progress Note ---
Subjective Time Seen by a Provider: 07:51 Subjective/Events-last exam Sedated on vent Sepsis Event Evaluation Height, Weight, BMI Height: 5'7.00" Weight: 223lbs. 8.0oz. 101.269426on; 34.8 BMI Method:Stated Focused Exam Lactate Level 12/27/18 12:10: Lactic Acid Level 1.42 12/27/18 16:50: Lactic Acid Level 0.92 Time of Focused Exam: 1440 Exam Exam Vital Signs Date Time Temp Pulse Resp B/P (MAP) Pulse Ox O2 Delivery O2 Flow Rate FiO2 12/30/18 06:51 68 24 89 40 12/30/18 06:09 105 141/62 12/30/18 06:00 80 20 159/83 (108) 97 Mechanical Ventilator 40.00 12/30/18 05:00 100.5 12/30/18 05:00 74 23 122/52 (75) 91 Mechanical Ventilator 40.00 12/30/18 04:01 74 24 91 40 12/30/18 04:00 75 24 135/55 (81) 91 Mechanical Ventilator 40.00 12/30/18 04:00 93 Mechanical Ventilator 40 12/30/18 04:00 101.6 12/30/18 03:45 101.6 12/30/18 03:00 77 24 127/53 (77) 91 Mechanical Ventilator 40.00 12/30/18 02:10 85 24 90 40 12/30/18 02:00 100.8 12/30/18 02:00 80 24 116/53 (74) 91 Mechanical Ventilator 40.00 12/30/18 01:51 77 121/53 12/30/18 01:00 79 24 121/57 (78) 91 Mechanical Ventilator 40.00 12/30/18 01:00 80 12/30/18 00:30 76 24 92 40 12/30/18 00:00 101.6 12/30/18 00:00 93 Mechanical Ventilator 40 12/30/18 00:00 81 24 139/59 (85) 92 Mechanical Ventilator 40.00 12/29/18 23:00 80 23 125/60 (81) 91 Mechanical Ventilator 40.00 12/29/18 22:12 79 24 91 40 12/29/18 22:00 101.8 12/29/18 22:00 80 24 134/59 (84) 91 Mechanical Ventilator 40.00 12/29/18 21:39 83 119/54 12/29/18 21:03 101.8 12/29/18 21:00 86 24 125/57 (79) 91 Mechanical Ventilator 40.00 12/29/18 20:33 100.8 12/29/18 20:24 81 24 93 40 12/29/18 20:00 100.8 12/29/18 20:00 93 Mechanical Ventilator 40 12/29/18 20:00 99 23 125/60 (81) 90 Mechanical Ventilator 40.00 12/29/18 19:00 90 12/29/18 19:00 88 23 149/59 (89) 92 Mechanical Ventilator 40.00 12/29/18 18:27 82 24 91 40 12/29/18 18:00 81 24 114/51 (72) 91 Mechanical Ventilator 40.00 12/29/18 17:52 100.2 80 24 118/51 91 Mechanical Ventilator 40.00 12/29/18 17:00 82 23 124/53 (76) 92 Mechanical Ventilator 40.00 12/29/18 16:00 100.3 12/29/18 16:00 89 24 122/54 (76) 96 Mechanical Ventilator 40.00 12/29/18 16:00 92 Mechanical Ventilator 40 12/29/18 15:00 93 23 137/55 (82) 93 Mechanical Ventilator 40.00 12/29/18 14:43 99.7 101 25 120/53 93 Mechanical Ventilator 40.00 12/29/18 14:13 86 24 92 40 12/29/18 14:00 90 8 104/58 (73) 92 Mechanical Ventilator 40.00 12/29/18 13:23 98 12/29/18 13:00 92 35 112/50 (70) 91 Mechanical Ventilator 40.00 12/29/18 12:00 94 32 90/42 (58) 91 Mechanical Ventilator 40.00 12/29/18 12:00 91 Mechanical Ventilator 40 12/29/18 12:00 101.7 12/29/18 11:11 98 24 92 40 12/29/18 11:00 92 17 110/50 (70) 92 Mechanical Ventilator 40.00 12/29/18 10:00 97 21 105/49 (67) 92 Mechanical Ventilator 40.00 12/29/18 09:57 100.8 99 29 105/49 93 Mechanical Ventilator 40.00 12/29/18 09:00 108 23 122/56 (78) 91 Mechanical Ventilator 40.00 12/29/18 08:46 110 24 95 50 12/29/18 08:00 100.1 12/29/18 08:00 112 21 129/51 (77) 94 Mechanical Ventilator 50.00 12/29/18 08:00 94 Mechanical Ventilator 50 I & O 12/30/18 07:00 Intake Total 2262 ml Output Total 3650 ml Balance -1388 ml Height & Weight Height: 5'7.00" Weight: 223lbs. 8.0oz. 101.442044ip; 34.8 BMI Method:Stated General Appearance: No Apparent Distress, WD/WN, Chronically ill, Other ( intubated) HEENT: PERRL/EOMI, Pharynx Normal Neck: Normal Inspection, Supple Respiratory: Crackles, Decreased Breath Sounds Cardiovascular: Regular Rate, Rhythm, No Edema Capillary Refill: Less Than 3 Seconds Peripheral Pulses: 3+ Radial Pulses (L) Gastrointestinal: non tender, soft Extremity: Normal Inspection, No Pedal Edema Neurologic/Psychiatric: Other (sedated) Results Lab Laboratory Tests 12/29/18 03:35 12/30/18 03:05 Assessment/Plan Assessment/Plan -Acute on chronic respiratory failure EF 60 65% -cont ventilator -Solumedrol 40 Q 6 -TF with pulmicare -KVO IVF Pneumonia with severe sepsis with mucous plugging -Sputum growing Corynebacterium -S/p bronchoscopy -IVF -vanco and Zosyn -Cont Vanco will D/C Zosyn -Ruiz cultures -INflu neg Mediastinal lymphadenopathy probably reactive however present and worse since r/o cancer -Will need to repeat CT scan 8 wks after discharge. COPDAE -SVNS -steroids Hypernatremia -Give free water 250cc Q 6 hours -Monitor -Decrease LR to 30cc/hr Metabolic acidosis - improved -IVF -Monitor Elevated troponin - probably secondary to hypoxia -Cardiology following -repeat troponin Hypotension - now resolved -Levophed is off -Monitor Hypophos, hypomag -replace Tobacco use -Education KEYONA EVANS DO Dec 30, 2018 07:46
--- NOTE | 2018-12-30 07:56 | Pulmonary Procedures ---
Pulmonary Procedures Date of Procedure Date of Service: Dec 30, 2018 Bronch Bronchoscopy with KWAN bronchoalveolar lavage (BAL), bilateral bronchial washes KWAN forcep bx and, KWAN brushes. Preop DX PNA, mucous plugging Postop DX: copious amounts of thick white mucous plugs sapphire KWAN. KWAN small bronchial lesion appears benign however forcep bx, and brush obtained from it. Complications: none After informed consent obtained and formal time out pt was sedated using Diprivan. Bronchoscope was advanced through the ET tube. 1% lidocaine was used to anesthetize costa, and left/right main stem bronchus. An anatomical tour was undertaken down to the segmental bronchi bilaterally. copious amounts of thick white mucous plugs sapphire KWAN. KWAN small bronchial lesion appears benign however forcep bx, and brush obtained from it. KWAN bronchoalveolar lavage (BAL) , bilateral bronchial washes KWAN forcep bx and, KWAN brushes were obtained. Pt tolerated procedure well. No complications noted. Stat CXR is pending. KEYONA EVANS DO Dec 30, 2018 07:56
--- NOTE | 2018-12-30 08:08 | Physical Therapy Progress Note ---
Therapy Progress Note Patient still on vent and sedated. Will check on patient this afternoon. GLADYS MORA PT Dec 30, 2018 08:08
--- NOTE | 2018-12-30 08:12 | Diagnostic Imaging Report ---
Indication: Dyspnea. Comparison: 12/29/2018. Findings: Stable ET and enteric tubes. Stable left PICC. No pleural effusion or pneumothorax. Right basilar subsegmental atelectasis is mildly worsened. Stable cardiac enlargement. Impression: 1. Stable support devices. 2. Worsening of right basilar subsegmental atelectasis. Dictated by: Dictated on workstation # [id number]
--- NOTE | 2018-12-30 08:24 | Occ Therapy Progress Note ---
Therapy Progress Note Pt. continues to be sedated on ventilator. Will continue to monitor. [id number] EDILIA DIAZ OT Dec 30, 2018 08:24
[2018-12-30] MEDS: PANTOPRAZOLE 40 MG (PROTONIX) VIAL IV SCH (08:28)
[2018-12-30] MEDS: ACETAMINOPHEN 650 MG SUPP (TYLENOL) PR PRN (08:28)
[2018-12-30] MEDS: ENOXAPARIN 40 MG/0.4 ML (LOVENOX) SYR SC SCH (08:28)
[2018-12-30] MEDS: ASPIRIN 81 MG CHEW (CHILDREN'S ASA) PO SCH (08:29)
[2018-12-30] MEDS ORDERED: LIDOCAINE PF 1% 2 ML AMP IJ ONE (08:36)
[2018-12-30 09:44] LABS: BODY FLUID APPEARENCE MOD CLDY; BODY FLUID COLOR PALE YELLOW; BODY FLUID SOURCE BRONCH
[2018-12-30 09:45] LABS: BF OTHER CELLS 0 %; LYMPHOCYTES,BODY FLUID 2 %
--- NOTE | 2018-12-30 10:54 | Progress Note-Cardiology ---
Cardiology SOAP Progress Note Subjective: Intubated and sedated Objective: I&O/Vital Signs 12/30/18 12/30/18 12/30/18 12/30/18 10:54 11:00 11:48 12:00 Pulse 70 69 Resp 24 B/P (MAP) 125/56 124/56 (78) Pulse Ox 93 94 94 O2 Delivery Mechanical Ventilator Mechanical Ventilator O2 Flow Rate 50.00 FiO2 40 50 12/30/18 12/30/18 12/30/18 12/30/18 12:00 12:54 13:00 14:00 Pulse 72 73 73 98 Resp 23 24 20 B/P (MAP) 117/54 (75) 131/57 (81) 140/73 (95) Pulse Ox 93 94 90 O2 Delivery Mechanical Ventilator Mechanical Ventilator Mechanical Ventilator O2 Flow Rate 50.00 50.00 50.00 12/30/18 12/30/18 12/30/18 12/30/18 14:42 15:00 15:40 16:00 Pulse 79 94 84 Resp 20 13 B/P (MAP) 113/51 (71) 121/53 (75) Pulse Ox 94 95 91 91 O2 Delivery Mechanical Ventilator Mechanical Ventilator Mechanical Ventilator O2 Flow Rate 50.00 50.00 FiO2 50 50 12/30/18 12/30/18 12/30/18 12/30/18 16:21 16:40 17:00 18:00 Pulse 120 79 74 Resp 24 28 28 B/P (MAP) 121/60 (80) 132/62 (85) Pulse Ox 95 90 95 O2 Delivery Mechanical Ventilator Mechanical Ventilator Mechanical Ventilator O2 Flow Rate 60.00 60.00 60.00 FiO2 50 12/30/18 12/30/18 12/30/18 12/30/18 18:32 19:00 19:00 20:00 Temp 98.4 Pulse 72 80 74 Resp 19 B/P (MAP) 140/64 (89) Pulse Ox 95 95 O2 Delivery Mechanical Ventilator O2 Flow Rate 60.00 FiO2 60 12/30/18 12/30/18 12/30/18 12/30/18 20:00 20:00 20:09 21:00 Pulse 74 73 75 Resp 19 19 B/P (MAP) 158/70 (99) 152/69 (96) Pulse Ox 95 91 96 96 O2 Delivery Mechanical Ventilator Mechanical Ventilator Mechanical Ventilator O2 Flow Rate 60.00 60.00 FiO2 60 60 3/12/19 3/12/19 3/12/19 21:47 22:00 22:06 Pulse 80 80 79 Resp 19 24 B/P (MAP) 143/62 135/60 (85) Pulse Ox 97 97 O2 Delivery Mechanical Ventilator O2 Flow Rate 60.00 FiO2 60 12/30/18 00:00 Intake Total 1360 ml Output Total 950 ml Balance 410 ml Weight (Pounds): 223 Weight (Ounces): 8.0 Weight (Calculated Kilograms): 101.839021 Constitutional: other (intubated and sedated and on mech vent) Respiratory: No accessory muscle use; other (fair air entry) Cardiovascular: regular rate-rhythm, S1 and S2, systolic murmur (soft LEANN at card base) Gastrointestional: soft; No guarding, No rebound; audible bowel sounds Extremities: No clubbing, No cyanosis, No significant edema Neurologic/Psychiatric: other (not able to coperate with a neuro exam; on mech vent) Skin: normal color, warm/dry; No diaphoresis, No mottled Results/Procedures: Labs Laboratory Tests 12/30/18 00:10: Glucometer 138H 12/30/18 03:05: White Blood Count 10.2, Red Blood Count 5.03, Hemoglobin 14.7, Hematocrit 46, Mean Corpuscular Volume 91, Mean Corpuscular Hemoglobin 29, Mean Corpuscular Hemoglobin Concent 32, Red Cell Distribution Width 19.6H, Platelet Count 95L, Mean Platelet Volume 11.4H, Neutrophils (%) (Auto) 88H, Lymphocytes (%) (Auto) 7L, Monocytes (%) (Auto) 5, Eosinophils (%) (Auto) 0, Basophils (%) (Auto) 0, Neutrophils # (Auto) 8.9H, Lymphocytes # (Auto) 0.7L, Monocytes # (Auto) 0.5, Eosinophils # (Auto) 0.0, Basophils # (Auto) 0.0, Blood Gas Puncture Site ART LINE, Blood Gas Patient Temperature 101.6, Arterial Blood pH 7.39, Arterial Blood Partial Pressure CO2 49H, Arterial Blood Partial Pressure O2 75L, Arterial Blood HCO3 28H, Arterial Blood Total CO2 29.4, Arterial Blood Oxygen Saturation 94, Arterial Blood Base Excess 3.7H, Jeff Test ART LINE, Blood Gas Ventilator Setting YES, Blood Gas Inspired Oxygen 40%, Sodium Level 149H, Potassium Level 4.0, Chloride Level 113H, Carbon Dioxide Level 24, Anion Gap 12 , Blood Urea Nitrogen 19H, Creatinine 0.86, Estimat Glomerular Filtration Rate > 60, BUN/Creatinine Ratio 22, Glucose Level 148H, Calcium Level 7.6L, Phosphorus Level 1.9L, Magnesium Level 1.7L 12/30/18 05:55: Body Fluid Source BRONCH, Body Fluid Color PALE YELLOW, Body Fluid Appearance MOD CLDY, Body Fluid Polynuclear WBCs 94, Body Fluid Mononuclear WBCs 4, Body Fluid Lymphocytes 2, Body Fluid Other Cells 0 12/30/18 11:20: Glucometer 144H 12/30/18 18:25: Glucometer 145H Microbiology 12/27/18 Blood Culture - Preliminary, Resulted No growth 12/27/18 Gram Stain - Final, Complete 12/27/18 Sputum Culture - Final, Complete Corynebacterium striatum See Comments 12/27/18 Urine Culture - Final, Complete NO GROWTH Procedures NAME: LUIS MANUEL RETANA [facility] REC#: [id number] PT STATUS: ADM IN : 1960 PHYSICIAN: CHRIS EMERSON DO ADMIT DATE: 12/27/18/ICU Draft Date of Exam:12/30/18 CHEST 1 VIEW, AP/PA ONLY Indication: Dyspnea. Comparison: 12/29/2018. Findings: Stable ET and enteric tubes. Stable left PICC. No pleural effusion or pneumothorax. Right basilar subsegmental atelectasis is mildly worsened. Stable cardiac enlargement. Impression: 1. Stable support devices. 2. Worsening of right basilar subsegmental atelectasis. Dictated on workstation # [id number] Dict: 12/30/18 0753 Trans: 12/30/18 0812 [facility] [id number] Interpreted by: HANY GARLAND MD Electronically signed by: A/P: Assessment: Acute resp failure probably due to R-sided pneumonia Hypoxia due to ac resp failure Elevated troponin due to hypoxia (type 2 SC). No evidence of Type 1 SC Cardiac cath of May 2017: angiographically mild CAD. LVEF 55-60%. LVEDP at the top limit of normal. No significant MR Echo of 09/25/18: LVEF 60-65%, PASP 25 mmHg H/o gallstones. Abdominal u/s of May 2017: the gallbladder is most likely filled with calculi - being followed by Dr. Narayan No evidence of AAA on abd ao screening scan of 04/18/18 Seg pressures of 04/08/18 did not show evidence of significant obstructive PAD COPD Fam h/o early CAD (father to [place] in his early 50s) Chronic tobacco use Hypertension Bipolar disorder Chronic mild, intermittent leg swelling Chronic impaired (somewhat slurred) speech Carotid art dz: 50-60% R ICA and 60-79% L ICA stenoses on carotid u/s of Oct 2018 Plan: * S/P bronchoscopy this morning * Continue current therapy * Monitor and correct labs Physician Assessment Physician Assessment Still on [facility] vent Lungs: fair to good air entry Cor: reg Ext: no c/c; mild edema A&R * As documented in our note above that I updated (italics) and as noted below * Continue current regimen * Monitor labs MENG PACHECO Dec 30, 2018 10:54 ERIN HUTCHINSON MD FACP [facility] Dec 30, 2018 22:34
[2018-12-30] MEDS: VANCOMYCIN 1 GM/NS 250 ML IVPB IV SCH ×4 (11:04→22:00)
[2018-12-31] VITALS (50 sets, daily range): BP systolic 105–158; BP diastolic 53–85
[2018-12-31] MEDS: PROPOFOL DRIP (ICU) 100 ML IV SCH ×8 (00:11→21:42)
[2018-12-31] MEDS: methylPREDNISolone 40 MG/ML (Solu-MEDROL) VIAL IV SCH ×4 (00:11→17:00)
[2018-12-31] MEDS: inSUlin ASPART (NovoLOG) 1 UNIT/0.01 ML (CHARGE PER UNIT) SQ SCH ×4 (00:12→17:00)
[2018-12-31] MEDS: RT-ALBUTEROL/IPRATROPIUM 3 ML (DUONEB) VIAL INH SCH ×7 (02:04→22:17)
[2018-12-31 03:35] LABS: ABG BASE EXCESS 3.8 MMOL/L (-2.5-2.5); ABG OXYGEN SATURATION 98 % (94-100); ABG PCO2 49 MMHG (35-45); ABG PH 7.38 (7.37-7.43); ABG PO2 99 MMHG (79-93); ABG TCO2 30.1 MMOL/L (21.0-31.0); BASOPHILS % (AUTO) 0 % (0-10); EOSINOPHILS % (AUTO) 0 % (0-10); HEMATOCRIT 47 % (40-54); HEMOGLOBIN 15.2 G/DL (13.3-17.7); LYMPHOCYTES # (AUTO) 0.8 X 10^3 (1.0-4.0); LYMPHOCYTES % (AUTO) 9 % (12-44); MEAN CORPUSCULAR HEMOGLOBIN 30 PG (25-34); MEAN CORPUSCULAR HGB CONC 33 G/DL (32-36); MEAN CORPUSCULAR VOLUME 91 FL (80-99); MEAN PLATELET VOLUME 10.7 FL (7.4-10.4); MONOCYTES # (AUTO) 0.7 X 10^3 (0.0-1.0); MONOCYTES % (AUTO) 7 % (0-12); NEUTROPHILS % (AUTO) 84 % (42-75); PLATELET COUNT 89 10^3/uL (130-400); RED CELL DISTRIBUTION WIDTH 19.7 % (10.0-14.5); WHITE BLOOD COUNT 9.6 10^3/uL (4.3-11.0)
[2018-12-31 03:36] LABS: ALLENS TEST ART LINE; INSPIRED O2 60%; PATIENT TEMP 98.5; VENTILATOR YES
[2018-12-31 03:47] LABS: BUN/CREATININE RATIO 31; CALCIUM 7.7 MG/DL (8.5-10.1); CARBON DIOXIDE 25 MMOL/L (21-32); CHLORIDE 111 MMOL/L (98-107); CREATININE SERUM 0.77 MG/DL (0.60-1.30); GFR ESTIMATED > 60; GLUCOSE 171 MG/DL (70-105); MAGNESIUM 2.4 MG/DL (1.8-2.4); PHOSPHORUS 2.6 MG/DL (2.3-4.7); POTASSIUM 4.4 MMOL/L (3.6-5.0); SODIUM 148 MMOL/L (135-145)
[2018-12-31] MEDS: VASOPRESSIN INJECTION 20 UNIT in NS (IVPB) 100 ML IV SCH ×3 (04:21→19:23)
[2018-12-31] MEDS: MAGNESIUM 1 GM/100 ML IVPB 100 ML IV SCH (04:22)
[2018-12-31] MEDS: POTASSIUM CL 10MEQ/50ML IVPB 50 ML IV SCH (04:22)
[2018-12-31] MEDS: KCL 20 MEQ TAB (K-DUR) PO SCH (04:22)
--- NOTE | 2018-12-31 06:07 | Pulmonary Progress Note ---
Subjective Time Seen by a Provider: 06:07 Subjective/Events-last exam PT sedated on vent. Still requiring a lot of Fi02. Sepsis Event Evaluation Height, Weight, BMI Height: 5'7.00" Weight: 223lbs. 8.0oz. 101.045879ri; 34.8 BMI Method:Stated Focused Exam Time of Focused Exam: 1440 Exam Exam Vital Signs Date Time Temp Pulse Resp B/P (MAP) Pulse Ox O2 Delivery O2 Flow Rate FiO2 12/31/18 05:53 Mechanical Ventilator 55.00 12/31/18 05:29 73 133/62 12/31/18 05:00 91 18 139/85 (103) 93 Mechanical Ventilator 60.00 12/31/18 04:03 74 24 95 60 12/31/18 04:00 98.5 12/31/18 04:00 91 Mechanical Ventilator 60 12/31/18 04:00 74 18 138/66 (90) 95 Mechanical Ventilator 60.00 12/31/18 03:00 75 18 147/64 (91) 95 Mechanical Ventilator 60.00 12/31/18 02:45 78 143/64 12/31/18 02:05 80 24 94 60 12/31/18 02:00 84 19 131/58 (82) 94 Mechanical Ventilator 60.00 12/31/18 01:00 78 12/31/18 01:00 78 19 158/68 (98) 97 Mechanical Ventilator 60.00 12/31/18 00:11 151/65 12/31/18 00:02 77 24 96 60 12/31/18 00:00 78 19 150/64 (92) 96 Mechanical Ventilator 60.00 12/31/18 00:00 91 Mechanical Ventilator 60 12/31/18 00:00 98.4 12/30/18 23:00 87 19 153/65 (94) 96 Mechanical Ventilator 60.00 12/30/18 22:06 79 24 97 60 12/30/18 22:00 80 19 135/60 (85) 97 Mechanical Ventilator 60.00 12/30/18 21:47 80 143/62 12/30/18 21:00 75 19 152/69 (96) 96 Mechanical Ventilator 60.00 12/30/18 20:09 73 24 96 60 12/30/18 20:00 91 Mechanical Ventilator 60 12/30/18 20:00 74 19 158/70 (99) 95 Mechanical Ventilator 60.00 12/30/18 20:00 98.4 12/30/18 19:00 74 19 140/64 (89) 95 Mechanical Ventilator 60.00 12/30/18 19:00 80 12/30/18 18:32 72 24 95 60 12/30/18 18:00 74 28 132/62 (85) 95 Mechanical Ventilator 60.00 12/30/18 17:00 79 28 121/60 (80) 90 Mechanical Ventilator 60.00 12/30/18 16:40 Mechanical Ventilator 60.00 12/30/18 16:21 120 24 95 50 12/30/18 16:00 84 13 121/53 (75) 91 Mechanical Ventilator 50.00 12/30/18 15:40 91 Mechanical Ventilator 50 12/30/18 15:00 94 20 113/51 (71) 95 Mechanical Ventilator 50.00 12/30/18 14:42 79 24 94 50 12/30/18 14:00 98 20 140/73 (95) 90 Mechanical Ventilator 50.00 12/30/18 13:00 73 24 131/57 (81) 94 Mechanical Ventilator 50.00 12/30/18 12:54 73 12/30/18 12:00 72 23 117/54 (75) 93 Mechanical Ventilator 50.00 12/30/18 12:00 94 Mechanical Ventilator 50 12/30/18 11:48 69 24 94 40 12/30/18 11:00 70 23 124/56 (78) 93 Mechanical Ventilator 50.00 12/30/18 10:54 125/56 12/30/18 10:00 77 23 116/53 (74) 93 Mechanical Ventilator 50.00 12/30/18 09:40 99.1 12/30/18 09:00 93 40 102/49 (66) 92 Mechanical Ventilator 50.00 12/30/18 08:30 90 24 92 50 12/30/18 08:28 100.1 12/30/18 08:00 93 Mechanical Ventilator 50 12/30/18 08:00 82 109/50 (69) 92 Mechanical Ventilator 50.00 12/30/18 07:20 Mechanical Ventilator 50.00 12/30/18 07:10 72 12/30/18 07:00 70 24 107/50 (69) 92 Mechanical Ventilator 40.00 12/30/18 06:51 68 24 89 40 12/30/18 06:09 105 141/62 I & O 12/31/18 07:00 Intake Total 1275 ml Output Total 995 ml Balance 280 ml Height & Weight Height: 5'7.00" Weight: 223lbs. 8.0oz. 101.189042nb; 34.8 BMI Method:Stated General Appearance: No Apparent Distress, WD/WN, Chronically ill, Other ( intubated) HEENT: PERRL/EOMI, Pharynx Normal Neck: Normal Inspection, Supple Respiratory: Crackles, Decreased Breath Sounds Cardiovascular: Regular Rate, Rhythm, No Edema Capillary Refill: Less Than 3 Seconds Peripheral Pulses: 3+ Radial Pulses (L) Gastrointestinal: non tender, soft Extremity: Normal Inspection, No Pedal Edema Neurologic/Psychiatric: Other (sedated) Results Lab Laboratory Tests 12/30/18 03:05 12/31/18 03:18 Assessment/Plan Assessment/Plan -Acute on chronic respiratory failure EF 60 65% -cont ventilator -Solumedrol 40 Q 6 -TF with [facility] -KVO IVF Pneumonia with severe sepsis with mucous plugging -Sputum growing Corynebacterium -S/p bronchoscopy -IVF -vanco -Ruiz cultures -INflu neg Mediastinal lymphadenopathy probably reactive however present and worse since r/o cancer -Will need to repeat CT scan 8 wks after discharge. COPDAE -SVNS -steroids Hypernatremia -Give free water 250cc Q 6 hours -Monitor - LR to 30cc/hr Metabolic acidosis - improved -IVF -Monitor Elevated troponin - probably secondary to hypoxia -Cardiology following -repeat troponin Hypotension - now resolved -Levophed is off -Monitor Hypophos, hypomag -replace Tobacco use -Education KEYONA EVANS DO Dec 31, 2018 06:07
--- NOTE | 2018-12-31 07:06 | Progress Note (SOAP) ---
Subjective Time Seen by a Provider: 07:03 Subjective/Events-last exam Stable in his unstable way. Patient on vent and sedated. Platelet count 89,000. X-ray yesterday shows worsening of right basilar subsegmental atelectasis. Patient had bronchoscopy yesterday Focused Exam Time of Focused Exam: 1440 Objective Exam Vital Signs Date Time Temp Pulse Resp B/P (MAP) Pulse Ox O2 Delivery O2 Flow Rate FiO2 12/31/18 06:23 75 24 94 55 12/31/18 06:00 75 25 130/61 (84) 94 Mechanical Ventilator 55.00 12/31/18 05:53 Mechanical Ventilator 55.00 12/31/18 05:29 73 133/62 12/31/18 05:00 91 18 139/85 (103) 93 Mechanical Ventilator 60.00 12/31/18 04:03 74 24 95 60 12/31/18 04:00 98.5 12/31/18 04:00 91 Mechanical Ventilator 60 12/31/18 04:00 74 18 138/66 (90) 95 Mechanical Ventilator 60.00 12/31/18 03:00 75 18 147/64 (91) 95 Mechanical Ventilator 60.00 12/31/18 02:45 78 143/64 12/31/18 02:05 80 24 94 60 12/31/18 02:00 84 19 131/58 (82) 94 Mechanical Ventilator 60.00 12/31/18 01:00 78 12/31/18 01:00 78 19 158/68 (98) 97 Mechanical Ventilator 60.00 12/31/18 00:11 151/65 12/31/18 00:02 77 24 96 60 12/31/18 00:00 78 19 150/64 (92) 96 Mechanical Ventilator 60.00 12/31/18 00:00 91 Mechanical Ventilator 60 12/31/18 00:00 98.4 12/30/18 23:00 87 19 153/65 (94) 96 Mechanical Ventilator 60.00 12/30/18 22:06 79 24 97 60 12/30/18 22:00 80 19 135/60 (85) 97 Mechanical Ventilator 60.00 12/30/18 21:47 80 143/62 12/30/18 21:00 75 19 152/69 (96) 96 Mechanical Ventilator 60.00 12/30/18 20:09 73 24 96 60 12/30/18 20:00 91 Mechanical Ventilator 60 12/30/18 20:00 74 19 158/70 (99) 95 Mechanical Ventilator 60.00 12/30/18 20:00 98.4 12/30/18 19:00 74 19 140/64 (89) 95 Mechanical Ventilator 60.00 12/30/18 19:00 80 12/30/18 18:32 72 24 95 60 12/30/18 18:00 74 28 132/62 (85) 95 Mechanical Ventilator 60.00 12/30/18 17:00 79 28 121/60 (80) 90 Mechanical Ventilator 60.00 12/30/18 16:40 Mechanical Ventilator 60.00 12/30/18 16:21 120 24 95 50 12/30/18 16:00 84 13 121/53 (75) 91 Mechanical Ventilator 50.00 12/30/18 15:40 91 Mechanical Ventilator 50 12/30/18 15:00 94 20 113/51 (71) 95 Mechanical Ventilator 50.00 12/30/18 14:42 79 24 94 50 12/30/18 14:00 98 20 140/73 (95) 90 Mechanical Ventilator 50.00 12/30/18 13:00 73 24 131/57 (81) 94 Mechanical Ventilator 50.00 12/30/18 12:54 73 12/30/18 12:00 72 23 117/54 (75) 93 Mechanical Ventilator 50.00 12/30/18 12:00 94 Mechanical Ventilator 50 12/30/18 11:48 69 24 94 40 12/30/18 11:00 70 23 124/56 (78) 93 Mechanical Ventilator 50.00 12/30/18 10:54 125/56 12/30/18 10:00 77 23 116/53 (74) 93 Mechanical Ventilator 50.00 12/30/18 09:40 99.1 12/30/18 09:00 93 40 102/49 (66) 92 Mechanical Ventilator 50.00 12/30/18 08:30 90 24 92 50 12/30/18 08:28 100.1 12/30/18 08:00 93 Mechanical Ventilator 50 12/30/18 08:00 82 109/50 (69) 92 Mechanical Ventilator 50.00 12/30/18 07:20 Mechanical Ventilator 50.00 12/30/18 07:10 72 I & O 12/31/18 07:00 Intake Total 1655 ml Output Total 1195 ml Balance 460 ml Capillary Refill : Less Than 3 SecondsLess Than 3 Seconds General Appearance: No Apparent Distress, WD/WN, Other (On vent and sedated) HEENT: Normal ENT Inspection Neck: Normal Inspection Respiratory: Lungs Clear, No Accessory Muscle Use, No Respiratory Distress Cardiovascular: Regular Rate, Rhythm, No Murmur Gastrointestinal: non tender, soft Results Lab Laboratory Tests 12/31/18 03:18 Laboratory Tests 12/30/18 11:20: Glucometer 144H 12/30/18 18:25: Glucometer 145H 12/31/18 00:12: Glucometer 169H 12/31/18 03:18: White Blood Count 9.6, Red Blood Count 5.15, Hemoglobin 15.2, Hematocrit 47, Mean Corpuscular Volume 91, Mean Corpuscular Hemoglobin 30, Mean Corpuscular Hemoglobin Concent 33, Red Cell Distribution Width 19.7H, Platelet Count 89L, Mean Platelet Volume 10.7H, Neutrophils (%) (Auto) 84H, Lymphocytes (%) (Auto) 9L, Monocytes (%) (Auto) 7, Eosinophils (%) (Auto) 0, Basophils (%) (Auto) 0, Neutrophils # (Auto) 8.0H, Lymphocytes # (Auto) 0.8L, Monocytes # (Auto) 0.7, Eosinophils # (Auto) 0.0, Basophils # (Auto) 0.0, Blood Gas Puncture Site ART LINE, Blood Gas Patient Temperature 98.5, Arterial Blood pH 7.38, Arterial Blood Partial Pressure CO2 49H, Arterial Blood Partial Pressure O2 99H, Arterial Blood HCO3 29H, Arterial Blood Total CO2 30.1, Arterial Blood Oxygen Saturation 98, Arterial Blood Base Excess 3.8H, Jeff Test ART LINE, Blood Gas Ventilator Setting YES, Blood Gas Inspired Oxygen 60%, Sodium Level 148H, Potassium Level 4.4, Chloride Level 111H, Carbon Dioxide Level 25, Anion Gap 12 , Blood Urea Nitrogen 24H, Creatinine 0.77, Estimat Glomerular Filtration Rate > 60, BUN/Creatinine Ratio 31, Glucose Level 171H, Calcium Level 7.7L, Phosphorus Level 2.6, Magnesium Level 2.4, B-Type Natriuretic Peptide 104.8H Microbiology 12/27/18 Blood Culture - Preliminary, Resulted No growth 12/27/18 Gram Stain - Final, Complete 12/27/18 Sputum Culture - Final, Complete Corynebacterium striatum See Comments 12/27/18 Urine Culture - Final, Complete NO GROWTH Assessment/Plan Assessment/Plan Assess & Plan/Chief Complaint Acute respiratory failure. Febrile. COPD. Elevated troponin. Hypotension. Sepsis. Hypoxia. COPD. Gallstones. Thrombocytopenia. . 12/30/18. Acute respiratory failure. Febrile. COPD. Hypotension resolved. Sepsis. Gallstones. Thrombocytopenia stabilized. Patient had a bronchoscopy this a.m. . 12/31/18. Acute respiratory failure. Hypoxia. Pneumonia. Sepsis. Elevated troponin. Thrombocytopenia. Hypotension. Tobacco usage Clinical Quality Measures DVT/VTE Risk/Contraindication: Risk Factor Score Per Nursin RFS Level Per Nursing on Admit: 4+=Very High ART CASANOVA DO Dec 31, 2018 07:06
[2018-12-31] MEDS: PANTOPRAZOLE 40 MG (PROTONIX) VIAL IV SCH (08:00)
[2018-12-31] MEDS: ASPIRIN 81 MG CHEW (CHILDREN'S ASA) PO SCH (08:01)
[2018-12-31] MEDS: ENOXAPARIN 40 MG/0.4 ML (LOVENOX) SYR SC SCH (08:01)
--- NOTE | 2018-12-31 08:06 | Physical Therapy Progress Note ---
Therapy Progress Note Patient still intubated and sedated. Will check back. GLADYS MORA PT Dec 31, 2018 08:06
--- NOTE | 2018-12-31 08:24 | Occ Therapy Progress Note ---
Therapy Progress Note Pt. continues to be vented and on sedation. Will continue to monitor. 0823 EDILIA DIAZ OT Dec 31, 2018 08:24
--- NOTE | 2018-12-31 09:24 | Diagnostic Imaging Report ---
INDICATION: Dyspnea.. TECHNIQUE: Single view chest 3:15 AM. CORRELATION STUDY: 12/30/2018 FINDINGS: Endotracheal tube, gastric tube and left-sided central line unchanged. Heart size and mediastinum relatively stable. Continued infiltrate of the right lung base along with right pleural effusion. This may be slightly progressed. Vascular appears slightly increased from prior study as well. Findings may be somewhat accentuated by limited depth of inspiration. IMPRESSION: 1. Stable support lines and tubes. 2. Appears to be increasing combination of consolidation and effusion of the right lung base. Vascular also slightly increased from prior study. Dictated by: Dictated on workstation # [id number]
[2018-12-31] MEDS: VANCOMYCIN 1 GM/NS 250 ML IVPB IV SCH ×4 (09:26→22:58)
--- NOTE | 2018-12-31 10:03 | Cardiology Progress Note ---
Cardiology SOAP Progress Note Subjective: Intubated/ventilated Objective: I&O/Vital Signs 12/31/18 12/31/18 12/31/18 12/31/18 10:00 10:23 11:00 11:32 Pulse 77 85 78 Resp 15 24 24 B/P (MAP) 129/60 (83) 121/57 (78) 134/62 Pulse Ox 94 95 94 O2 Delivery Mechanical Ventilator Mechanical Ventilator O2 Flow Rate 50.00 50.00 FiO2 55 12/31/18 12/31/18 12/31/18 12/31/18 11:38 12:00 12:30 12:44 Temp 99.7 99.9 Pulse 79 Resp 24 B/P (MAP) 132/63 (86) Pulse Ox 94 94 O2 Delivery Mechanical Ventilator Mechanical Ventilator O2 Flow Rate 50.00 FiO2 50 12/31/18 12/31/18 12/31/18 12/31/18 12:56 13:00 14:00 14:08 Pulse 74 73 77 75 Resp 24 24 24 B/P (MAP) 156/70 (98) 154/68 (96) Pulse Ox 94 93 94 O2 Delivery Mechanical Ventilator Mechanical Ventilator O2 Flow Rate 50.00 50.00 FiO2 50 12/31/18 12/31/18 12/31/18 12/31/18 14:15 14:27 15:00 15:01 Pulse 85 Resp 13 B/P (MAP) 123/59 147/66 (93) Pulse Ox 92 92 O2 Delivery Mechanical Ventilator Mechanical Ventilator Mechanical Ventilator O2 Flow Rate 45.00 45.00 FiO2 45 12/31/18 12/31/18 12/31/18 12/31/18 15:02 15:38 16:00 16:18 Temp 100.5 101.5 Pulse 79 78 Resp 24 28 B/P (MAP) 139/64 (89) Pulse Ox 93 93 O2 Delivery Mechanical Ventilator O2 Flow Rate 45.00 FiO2 45 12/31/18 12/31/18 12/31/18 12/31/18 16:23 16:58 16:58 17:00 Temp 101.5 101.4 101.4 Pulse 75 Resp 24 B/P (MAP) 146/65 (92) Pulse Ox 94 O2 Delivery Mechanical Ventilator O2 Flow Rate 45.00 12/31/18 12/31/18 12/31/18 12/31/18 17:21 17:22 17:47 18:00 Temp 101.2 100.8 Pulse 72 Resp 23 B/P (MAP) 143/66 142/65 (90) Pulse Ox 93 O2 Delivery Mechanical Ventilator O2 Flow Rate 45.00 12/31/18 12/31/18 12/31/18 18:26 19:21 19:29 Temp 101.5 101.0 Pulse 73 75 Resp 24 24 B/P (MAP) 144/65 (91) Pulse Ox 93 93 O2 Delivery Mechanical Ventilator O2 Flow Rate 45.00 FiO2 45 12/31/18 00:00 Intake Total 370 ml Output Total 475 ml Balance -105 ml Weight (Pounds): 231 Weight (Ounces): 8.0 Weight (Calculated Kilograms): 104.297625 Constitutional: other (intubated and sedated and on mech vent) Respiratory: No accessory muscle use; other (fair air entry) Cardiovascular: regular rate-rhythm, S1 and S2, systolic murmur (soft LEANN at card base) Gastrointestional: soft; No guarding, No rebound; audible bowel sounds Extremities: No clubbing, No cyanosis, No significant edema Neurologic/Psychiatric: other (not able to coperate with a neuro exam; on mech vent) Skin: normal color, warm/dry; No diaphoresis, No mottled Results/Procedures: Labs Laboratory Tests 12/31/18 00:12: Glucometer 169H 12/31/18 03:18: White Blood Count 9.6, Red Blood Count 5.15, Hemoglobin 15.2, Hematocrit 47, Mean Corpuscular Volume 91, Mean Corpuscular Hemoglobin 30, Mean Corpuscular Hemoglobin Concent 33, Red Cell Distribution Width 19.7H, Platelet Count 89L, Mean Platelet Volume 10.7H, Neutrophils (%) (Auto) 84H, Lymphocytes (%) (Auto) 9L, Monocytes (%) (Auto) 7, Eosinophils (%) (Auto) 0, Basophils (%) (Auto) 0, Neutrophils # (Auto) 8.0H, Lymphocytes # (Auto) 0.8L, Monocytes # (Auto) 0.7, Eosinophils # (Auto) 0.0, Basophils # (Auto) 0.0, Blood Gas Puncture Site ART LINE, Blood Gas Patient Temperature 98.5, Arterial Blood pH 7.38, Arterial Blood Partial Pressure CO2 49H, Arterial Blood Partial Pressure O2 99H, Arterial Blood HCO3 29H, Arterial Blood Total CO2 30.1, Arterial Blood Oxygen Saturation 98, Arterial Blood Base Excess 3.8H, Jeff Test ART LINE, Blood Gas Ventilator Setting YES, Blood Gas Inspired Oxygen 60%, Sodium Level 148H, Potassium Level 4.4, Chloride Level 111H, Carbon Dioxide Level 25, Anion Gap 12 , Blood Urea Nitrogen 24H, Creatinine 0.77, Estimat Glomerular Filtration Rate > 60, BUN/Creatinine Ratio 31, Glucose Level 171H, Calcium Level 7.7L, Phosphorus Level 2.6, Magnesium Level 2.4, B-Type Natriuretic Peptide 104.8H 12/31/18 11:35: Glucometer 120H 12/31/18 16:59: Glucometer 139H 12/31/18 19:30: Triglycerides Level 574H Microbiology 12/27/18 Blood Culture - Preliminary, Resulted No growth 12/30/18 Mycobacterial Culture - Preliminary, Resulted 12/27/18 Urine Culture - Final, Complete NO GROWTH A/P: Assessment/Dx: Acute resp failure probably due to R-sided pneumonia Hypoxia due to ac resp failure Elevated troponin due to hypoxia (type 2 NV). No evidence of Type 1 NV Cardiac cath of May 2017: angiographically mild CAD. LVEF 55-60%. LVEDP at the top limit of normal. No significant MR Echo of 09/25/18: LVEF 60-65%, PASP 25 mmHg H/o gallstones. Abdominal u/s of May 2017: the gallbladder is most likely filled with calculi - being followed by Dr. Narayan No evidence of AAA on abd ao screening scan of 04/18/18 Seg pressures of 04/08/18 did not show evidence of significant obstructive PAD COPD Fam h/o early CAD (father to [place] in his early 50s) Chronic tobacco use Hypertension Bipolar disorder Chronic mild, intermittent leg swelling Chronic impaired (somewhat slurred) speech Carotid art dz: 50-60% R ICA and 60-79% L ICA stenoses on carotid u/s of Oct 2018 Plan: * Continue current therapy * Monitor and correct labs Thank you for your consultation. Please call me if you have any questions. Dudley Cintron MD, FACP, FACC, FSCAI, FHRS, CCDS Interventional Cardiology Cardiac Electrophysiology Vascular Medicine and Endovascular Interventions Focused Exam Time of Focused Exam: 1440 KHALID,M MACARIO MD Dec 31, 2018 10:03
[2018-12-31] MEDS: ACETAMINOPHEN 650 MG SUPP (TYLENOL) PR PRN (16:23)
[2018-12-31] MEDS: LACTATED RINGERS 1,000 ML IV SCH (21:41)
[2019-01-01] VITALS (45 sets, daily range): BP systolic 104–182; BP diastolic 5–78
[2019-01-01] MEDS: PROPOFOL DRIP (ICU) 100 ML IV SCH ×2 (00:03→02:24)
[2019-01-01] MEDS: methylPREDNISolone 40 MG/ML (Solu-MEDROL) VIAL IV SCH ×4 (00:52→16:27)
[2019-01-01] MEDS: inSUlin ASPART (NovoLOG) 1 UNIT/0.01 ML (CHARGE PER UNIT) SQ SCH ×4 (00:57→22:03)
[2019-01-01] MEDS: RT-ALBUTEROL/IPRATROPIUM 3 ML (DUONEB) VIAL INH SCH ×6 (01:19→22:28)
[2019-01-01] MEDS: fentaNYL INJECTION 1,250 MCG in NS (IVPB) 250 ML IV SCH (01:51)
[2019-01-01 04:29] LABS: BASOPHILS # (AUTO) 0.1 10^3/uL (0.0-0.1); BASOPHILS % (AUTO) 1 % (0-10); EOSINOPHILS % (AUTO) 0 % (0-10); HEMATOCRIT 47 % (40-54); HEMOGLOBIN 15.1 G/DL (13.3-17.7); LYMPHOCYTES # (AUTO) 0.8 X 10^3 (1.0-4.0); LYMPHOCYTES % (AUTO) 9 % (12-44); MEAN CORPUSCULAR HEMOGLOBIN 29 PG (25-34); MEAN CORPUSCULAR HGB CONC 32 G/DL (32-36); MEAN CORPUSCULAR VOLUME 90 FL (80-99); MONOCYTES # (AUTO) 0.4 X 10^3 (0.0-1.0); MONOCYTES % (AUTO) 5 % (0-12); NEUTROPHILS # (AUTO) 7.7 X 10^3 (1.8-7.8); NEUTROPHILS % (AUTO) 85 % (42-75); PLATELET COUNT 84 10^3/uL (130-400)
[2019-01-01 04:30] LABS: ABG BASE EXCESS 4.2 MMOL/L (-2.5-2.5); ABG OXYGEN SATURATION 96 % (94-100); ABG PCO2 41 MMHG (35-45); ABG PH 7.45 (7.37-7.43); ABG PO2 78 MMHG (79-93); ABG TCO2 29.4 MMOL/L (21.0-31.0)
[2019-01-01 04:31] LABS: ALLENS TEST ART LINE; INSPIRED O2 45%; PATIENT TEMP 97.9; VENTILATOR YES
[2019-01-01] MEDS: MAGNESIUM 1 GM/100 ML IVPB 100 ML IV SCH (04:35)
[2019-01-01] MEDS: POTASSIUM CL 10MEQ/50ML IVPB 50 ML IV SCH (04:35)
[2019-01-01] MEDS: VASOPRESSIN INJECTION 20 UNIT in NS (IVPB) 100 ML IV SCH ×3 (04:35→19:56)
[2019-01-01] MEDS: KCL 20 MEQ TAB (K-DUR) PO SCH (04:36)
[2019-01-01 04:45] LABS: BUN/CREATININE RATIO 34; CALCIUM 7.8 MG/DL (8.5-10.1); CARBON DIOXIDE 24 MMOL/L (21-32); CHLORIDE 106 MMOL/L (98-107); CREATININE SERUM 0.73 MG/DL (0.60-1.30); GFR ESTIMATED > 60; GLUCOSE 168 MG/DL (70-105); MAGNESIUM 2.5 MG/DL (1.8-2.4); PHOSPHORUS 3.7 MG/DL (2.3-4.7); POTASSIUM 4.8 MMOL/L (3.6-5.0); SODIUM 140 MMOL/L (135-145)
--- NOTE | 2019-01-01 06:52 | Pulmonary Progress Note ---
Subjective Time Seen by a Provider: 07:02 Subjective/Events-last exam Pt is sedated on vent. Sepsis Event Evaluation Height, Weight, BMI Height: 5'7.00" Weight: 239lbs. 8.0oz. 108.273079ii; 34.8 BMI Method:Stated Focused Exam Time of Focused Exam: 1440 Exam Exam Vital Signs Date Time Temp Pulse Resp B/P (MAP) Pulse Ox O2 Delivery O2 Flow Rate FiO2 01/01/19 06:36 55 24 94 45 01/01/19 06:15 58 24 167/71 (103) 95 Mechanical Ventilator 45.00 01/01/19 06:00 58 24 182/75 (110) 95 Mechanical Ventilator 45.00 01/01/19 05:45 56 24 180/73 (108) 95 Mechanical Ventilator 45.00 01/01/19 05:30 60 24 173/72 (105) 95 Mechanical Ventilator 45.00 01/01/19 05:15 61 24 168/70 (102) 95 Mechanical Ventilator 45.00 01/01/19 05:00 59 23 165/74 (104) 95 Mechanical Ventilator 45.00 01/01/19 04:45 61 24 173/77 (109) 95 Mechanical Ventilator 45.00 01/01/19 04:30 62 24 174/77 (109) 95 Mechanical Ventilator 45.00 01/01/19 04:15 60 24 177/74 (108) 94 Mechanical Ventilator 45.00 01/01/19 04:00 61 25 151/65 (93) 93 Mechanical Ventilator 45.00 01/01/19 04:00 92 Mechanical Ventilator 45 01/01/19 04:00 98.0 01/01/19 03:50 64 24 94 45 01/01/19 03:45 58 24 165/76 (105) 94 Mechanical Ventilator 45.00 01/01/19 03:30 61 23 165/76 (105) 94 Mechanical Ventilator 45.00 01/01/19 03:15 63 24 164/75 (104) 94 Mechanical Ventilator 45.00 01/01/19 03:00 62 28 177/78 (111) 94 Mechanical Ventilator 45.00 01/01/19 02:45 64 25 159/71 (100) 94 Mechanical Ventilator 45.00 01/01/19 02:30 65 28 148/69 (95) 93 Mechanical Ventilator 45.00 3/14/19 02:24 98.2 57 24 169/75 94 Mechanical Ventilator 45.00 01/01/19 02:15 67 26 138/65 (89) 93 Mechanical Ventilator 45.00 01/01/19 02:00 72 28 140/62 (88) 94 Mechanical Ventilator 45.00 01/01/19 01:45 64 33 162/70 (100) 93 Mechanical Ventilator 45.00 01/01/19 01:30 60 24 171/75 (107) 93 Mechanical Ventilator 45.00 01/01/19 01:19 57 24 94 45 01/01/19 01:15 58 23 170/75 (106) 94 Mechanical Ventilator 45.00 01/01/19 01:00 63 01/01/19 01:00 58 23 174/76 (108) 95 Mechanical Ventilator 45.00 01/01/19 00:52 98.2 01/01/19 00:45 58 24 171/73 (105) 95 Mechanical Ventilator 45.00 01/01/19 00:30 62 24 163/71 (101) 95 Mechanical Ventilator 45.00 01/01/19 00:15 66 33 146/65 (92) 94 Mechanical Ventilator 45.00 01/01/19 00:03 101.0 71 23 138/60 93 Mechanical Ventilator 45.00 01/01/19 00:00 92 Mechanical Ventilator 45 01/01/19 00:00 81 23 171/77 (108) 94 Mechanical Ventilator 45.00 12/31/18 23:45 67 23 153/67 (95) 94 Mechanical Ventilator 45.00 12/31/18 23:30 66 23 149/64 (92) 94 Mechanical Ventilator 45.00 12/31/18 23:15 71 23 138/60 (86) 93 Mechanical Ventilator 45.00 12/31/18 23:00 73 23 136/59 (84) 92 Mechanical Ventilator 45.00 12/31/18 22:45 74 24 125/57 (79) 92 Mechanical Ventilator 45.00 12/31/18 22:30 74 28 122/56 (78) 92 Mechanical Ventilator 45.00 12/31/18 22:17 80 24 94 45 12/31/18 22:15 70 24 158/67 (97) 94 Mechanical Ventilator 45.00 12/31/18 22:00 71 28 152/67 (95) 94 Mechanical Ventilator 45.00 12/31/18 21:45 72 25 151/66 (94) 94 Mechanical Ventilator 45.00 12/31/18 21:42 101.0 75 24 135/62 93 Mechanical Ventilator 45.00 12/31/18 21:30 73 25 149/65 (93) 94 Mechanical Ventilator 45.00 12/31/18 21:15 76 24 148/65 (92) 93 Mechanical Ventilator 45.00 12/31/18 21:00 75 24 143/63 (89) 94 Mechanical Ventilator 45.00 12/31/18 20:45 77 26 135/61 (85) 93 Mechanical Ventilator 45.00 12/31/18 20:30 77 24 129/59 (82) 93 Mechanical Ventilator 45.00 12/31/18 20:15 77 24 130/59 (82) 93 Mechanical Ventilator 45.00 12/31/18 20:00 76 24 127/58 (81) 92 Mechanical Ventilator 45.00 12/31/18 20:00 93 Mechanical Ventilator 45 12/31/18 19:45 76 28 126/58 (80) 92 Mechanical Ventilator 45.00 12/31/18 19:30 75 25 137/62 (87) 92 Mechanical Ventilator 45.00 12/31/18 19:29 75 24 93 45 12/31/18 19:21 101.0 73 24 144/65 (91) 93 Mechanical Ventilator 45.00 12/31/18 19:15 74 23 143/64 (90) 93 Mechanical Ventilator 45.00 12/31/18 19:00 73 12/31/18 19:00 74 24 143/64 (90) 93 Mechanical Ventilator 45.00 12/31/18 18:26 101.5 12/31/18 18:00 72 23 142/65 (90) 93 Mechanical Ventilator 45.00 12/31/18 17:47 100.8 12/31/18 17:22 101.2 12/31/18 17:21 143/66 12/31/18 17:00 75 24 146/65 (92) 94 Mechanical Ventilator 45.00 12/31/18 16:58 101.4 12/31/18 16:58 101.4 12/31/18 16:23 101.5 12/31/18 16:18 101.5 12/31/18 16:00 78 28 139/64 (89) 93 Mechanical Ventilator 45.00 12/31/18 15:38 79 24 93 45 12/31/18 15:02 100.5 12/31/18 15:01 92 Mechanical Ventilator 45 12/31/18 15:00 85 13 147/66 (93) 92 Mechanical Ventilator 45.00 12/31/18 14:27 123/59 12/31/18 14:15 Mechanical Ventilator 45.00 12/31/18 14:08 75 24 94 50 12/31/18 14:00 77 24 154/68 (96) 93 Mechanical Ventilator 50.00 12/31/18 13:00 73 24 156/70 (98) 94 Mechanical Ventilator 50.00 12/31/18 12:56 74 12/31/18 12:44 99.9 12/31/18 12:30 94 Mechanical Ventilator 50 12/31/18 12:00 79 24 132/63 (86) 94 Mechanical Ventilator 50.00 12/31/18 11:38 99.7 12/31/18 11:32 134/62 12/31/18 11:00 78 24 121/57 (78) 94 Mechanical Ventilator 50.00 12/31/18 10:23 85 24 95 55 12/31/18 10:00 77 15 129/60 (83) 94 Mechanical Ventilator 50.00 12/31/18 09:00 84 23 105/53 (70) 93 Mechanical Ventilator 55.00 12/31/18 08:51 93 Mechanical Ventilator 55 12/31/18 08:42 89 24 94 55 12/31/18 08:40 106/52 12/31/18 08:00 84 16 121/56 (77) 94 Mechanical Ventilator 55.00 12/31/18 07:21 99.4 12/31/18 07:04 80 12/31/18 07:00 80 24 122/56 (78) 93 Mechanical Ventilator 55.00 I & O 01/01/19 07:00 Intake Total 1050 ml Output Total 2125 ml Balance -1075 ml Height & Weight Height: 5'7.00" Weight: 239lbs. 8.0oz. 108.813730dk; 34.8 BMI Method:Stated General Appearance: No Apparent Distress, WD/WN, Other (On vent and sedated) HEENT: Normal ENT Inspection Neck: Normal Inspection Respiratory: Lungs Clear, No Accessory Muscle Use, No Respiratory Distress Cardiovascular: Regular Rate, Rhythm, No Murmur Capillary Refill: Less Than 3 Seconds Peripheral Pulses: 3+ Radial Pulses (L) Gastrointestinal: non tender, soft Extremity: Normal Inspection, No Pedal Edema Neurologic/Psychiatric: Other (sedated) Results Lab Laboratory Tests 12/31/18 03:18 01/01/19 04:27 Assessment/Plan Assessment/Plan -Acute on chronic respiratory failure EF 60 65% -cont ventilator -Will start weaning vent -Solumedrol 40 Q 6 -TF with pulmicare -KVO IVF Pneumonia with severe sepsis with mucous plugging -Sputum growing Corynebacterium and enterobacter -Restart Zosyn - pt is having persistent fevers -S/p bronchoscopy -IVF -vanco -Ruiz cultures -INflu neg Mediastinal lymphadenopathy probably reactive however present and worse since r/o cancer -Will need to repeat CT scan 8 wks after discharge. COPDAE -SVNS -steroids Hypernatremia -Give free water 250cc Q 6 hours -Monitor - LR to 30cc/hr Elevated troponin - probably secondary to hypoxia -Cardiology following -repeat troponin Hypotension - now resolved -Levophed is off -Monitor Hypophos, hypomag -replace Tobacco use -Education KEYONA EVANS DO Jan 01, 2019 06:52
[2019-01-01] MEDS ORDERED: FUROSEMIDE 40 MG/4 ML INJ (LASIX) IVP NR (07:00)
[2019-01-01] MEDS ORDERED: PIPERACILLIN/TAZO 4.5 GM/NS 100 ML IV NR ×2 (07:08)
--- NOTE | 2019-01-01 07:27 | Progress Note (SOAP) ---
Subjective Time Seen by a Provider: 07:23 Subjective/Events-last exam Patient on ventilator, intubated, and sedated. Chest x-ray yesterday looks worse. Patient running an elevated temperature of 101 last night. Patient hypertension Focused Exam Time of Focused Exam: 1440 Objective Exam Vital Signs Date Time Temp Pulse Resp B/P (MAP) Pulse Ox O2 Delivery O2 Flow Rate FiO2 01/01/19 06:36 55 24 94 45 01/01/19 06:15 58 24 167/71 (103) 95 Mechanical Ventilator 45.00 01/01/19 06:00 58 24 182/75 (110) 95 Mechanical Ventilator 45.00 01/01/19 05:45 56 24 180/73 (108) 95 Mechanical Ventilator 45.00 01/01/19 05:30 60 24 173/72 (105) 95 Mechanical Ventilator 45.00 01/01/19 05:15 61 24 168/70 (102) 95 Mechanical Ventilator 45.00 01/01/19 05:00 59 23 165/74 (104) 95 Mechanical Ventilator 45.00 01/01/19 04:45 61 24 173/77 (109) 95 Mechanical Ventilator 45.00 01/01/19 04:30 62 24 174/77 (109) 95 Mechanical Ventilator 45.00 01/01/19 04:15 60 24 177/74 (108) 94 Mechanical Ventilator 45.00 01/01/19 04:00 61 25 151/65 (93) 93 Mechanical Ventilator 45.00 01/01/19 04:00 92 Mechanical Ventilator 45 01/01/19 04:00 98.0 01/01/19 03:50 64 24 94 45 01/01/19 03:45 58 24 165/76 (105) 94 Mechanical Ventilator 45.00 01/01/19 03:30 61 23 165/76 (105) 94 Mechanical Ventilator 45.00 01/01/19 03:15 63 24 164/75 (104) 94 Mechanical Ventilator 45.00 01/01/19 03:00 62 28 177/78 (111) 94 Mechanical Ventilator 45.00 01/01/19 02:45 64 25 159/71 (100) 94 Mechanical Ventilator 45.00 01/01/19 02:30 65 28 148/69 (95) 93 Mechanical Ventilator 45.00 01/01/19 02:24 98.2 57 24 169/75 94 Mechanical Ventilator 45.00 01/01/19 02:15 67 26 138/65 (89) 93 Mechanical Ventilator 45.00 01/01/19 02:00 72 28 140/62 (88) 94 Mechanical Ventilator 45.00 01/01/19 01:45 64 33 162/70 (100) 93 Mechanical Ventilator 45.00 01/01/19 01:30 60 24 171/75 (107) 93 Mechanical Ventilator 45.00 01/01/19 01:19 57 24 94 45 01/01/19 01:15 58 23 170/75 (106) 94 Mechanical Ventilator 45.00 01/01/19 01:00 63 01/01/19 01:00 58 23 174/76 (108) 95 Mechanical Ventilator 45.00 01/01/19 00:52 98.2 01/01/19 00:45 58 24 171/73 (105) 95 Mechanical Ventilator 45.00 01/01/19 00:30 62 24 163/71 (101) 95 Mechanical Ventilator 45.00 01/01/19 00:15 66 33 146/65 (92) 94 Mechanical Ventilator 45.00 01/01/19 00:03 101.0 71 23 138/60 93 Mechanical Ventilator 45.00 01/01/19 00:00 92 Mechanical Ventilator 45 01/01/19 00:00 81 23 171/77 (108) 94 Mechanical Ventilator 45.00 12/31/18 23:45 67 23 153/67 (95) 94 Mechanical Ventilator 45.00 12/31/18 23:30 66 23 149/64 (92) 94 Mechanical Ventilator 45.00 12/31/18 23:15 71 23 138/60 (86) 93 Mechanical Ventilator 45.00 12/31/18 23:00 73 23 136/59 (84) 92 Mechanical Ventilator 45.00 12/31/18 22:45 74 24 125/57 (79) 92 Mechanical Ventilator 45.00 12/31/18 22:30 74 28 122/56 (78) 92 Mechanical Ventilator 45.00 12/31/18 22:17 80 24 94 45 12/31/18 22:15 70 24 158/67 (97) 94 Mechanical Ventilator 45.00 12/31/18 22:00 71 28 152/67 (95) 94 Mechanical Ventilator 45.00 12/31/18 21:45 72 25 151/66 (94) 94 Mechanical Ventilator 45.00 12/31/18 21:42 101.0 75 24 135/62 93 Mechanical Ventilator 45.00 12/31/18 21:30 73 25 149/65 (93) 94 Mechanical Ventilator 45.00 12/31/18 21:15 76 24 148/65 (92) 93 Mechanical Ventilator 45.00 12/31/18 21:00 75 24 143/63 (89) 94 Mechanical Ventilator 45.00 12/31/18 20:45 77 26 135/61 (85) 93 Mechanical Ventilator 45.00 12/31/18 20:30 77 24 129/59 (82) 93 Mechanical Ventilator 45.00 12/31/18 20:15 77 24 130/59 (82) 93 Mechanical Ventilator 45.00 12/31/18 20:00 76 24 127/58 (81) 92 Mechanical Ventilator 45.00 12/31/18 20:00 93 Mechanical Ventilator 45 12/31/18 19:45 76 28 126/58 (80) 92 Mechanical Ventilator 45.00 12/31/18 19:30 75 25 137/62 (87) 92 Mechanical Ventilator 45.00 12/31/18 19:29 75 24 93 45 12/31/18 19:21 101.0 73 24 144/65 (91) 93 Mechanical Ventilator 45.00 12/31/18 19:15 74 23 143/64 (90) 93 Mechanical Ventilator 45.00 12/31/18 19:00 73 12/31/18 19:00 74 24 143/64 (90) 93 Mechanical Ventilator 45.00 12/31/18 18:26 101.5 12/31/18 18:00 72 23 142/65 (90) 93 Mechanical Ventilator 45.00 12/31/18 17:47 100.8 12/31/18 17:22 101.2 12/31/18 17:21 143/66 12/31/18 17:00 75 24 146/65 (92) 94 Mechanical Ventilator 45.00 12/31/18 16:58 101.4 12/31/18 16:58 101.4 12/31/18 16:23 101.5 12/31/18 16:18 101.5 12/31/18 16:00 78 28 139/64 (89) 93 Mechanical Ventilator 45.00 12/31/18 15:38 79 24 93 45 12/31/18 15:02 100.5 12/31/18 15:01 92 Mechanical Ventilator 45 12/31/18 15:00 85 13 147/66 (93) 92 Mechanical Ventilator 45.00 12/31/18 14:27 123/59 12/31/18 14:15 Mechanical Ventilator 45.00 12/31/18 14:08 75 24 94 50 12/31/18 14:00 77 24 154/68 (96) 93 Mechanical Ventilator 50.00 12/31/18 13:00 73 24 156/70 (98) 94 Mechanical Ventilator 50.00 12/31/18 12:56 74 12/31/18 12:44 99.9 12/31/18 12:30 94 Mechanical Ventilator 50 12/31/18 12:00 79 24 132/63 (86) 94 Mechanical Ventilator 50.00 12/31/18 11:38 99.7 12/31/18 11:32 134/62 12/31/18 11:00 78 24 121/57 (78) 94 Mechanical Ventilator 50.00 12/31/18 10:23 85 24 95 55 12/31/18 10:00 77 15 129/60 (83) 94 Mechanical Ventilator 50.00 12/31/18 09:00 84 23 105/53 (70) 93 Mechanical Ventilator 55.00 12/31/18 08:51 93 Mechanical Ventilator 55 12/31/18 08:42 89 24 94 55 12/31/18 08:40 106/52 12/31/18 08:00 84 16 121/56 (77) 94 Mechanical Ventilator 55.00 I & O 01/01/19 07:00 Intake Total 1050 ml Output Total 2125 ml Balance -1075 ml Capillary Refill : Less Than 3 SecondsLess Than 3 Seconds General Appearance: No Apparent Distress, WD/WN HEENT: Normal ENT Inspection, Other (Patient intubated) Neck: Normal Inspection Respiratory: Lungs Clear, No Accessory Muscle Use, No Respiratory Distress, Decreased Breath Sounds Cardiovascular: Regular Rate, Rhythm, No Murmur Gastrointestinal: non tender, soft Results Lab Laboratory Tests 01/01/19 04:27 Laboratory Tests 12/31/18 11:35: Glucometer 120H 12/31/18 16:59: Glucometer 139H 12/31/18 19:30: Triglycerides Level 574H 01/01/19 00:55: Glucometer 128H 01/01/19 04:27: White Blood Count 9.0, Red Blood Count 5.18, Hemoglobin 15.1, Hematocrit 47, Mean Corpuscular Volume 90, Mean Corpuscular Hemoglobin 29, Mean Corpuscular Hemoglobin Concent 32, Red Cell Distribution Width 19.0H, Platelet Count 84L, Mean Platelet Volume 11.0H, Neutrophils (%) (Auto) 85H, Lymphocytes (%) (Auto) 9L, Monocytes (%) (Auto) 5, Eosinophils (%) (Auto) 0, Basophils (%) (Auto) 1, Neutrophils # (Auto) 7.7, Lymphocytes # (Auto) 0.8L, Monocytes # (Auto) 0.4, Eosinophils # (Auto) 0.0, Basophils # (Auto) 0.1, Blood Gas Puncture Site L RAD , Blood Gas Patient Temperature 97.9, Arterial Blood pH 7.45H, Arterial Blood Partial Pressure CO2 41, Arterial Blood Partial Pressure O2 78L, Arterial Blood HCO3 28H, Arterial Blood Total CO2 29.4, Arterial Blood Oxygen Saturation 96, Arterial Blood Base Excess 4.2H, Jeff Test ART LINE, Blood Gas Ventilator Setting YES, Blood Gas Inspired Oxygen 45%, Sodium Level 140, Potassium Level 4.8, Chloride Level 106, Carbon Dioxide Level 24, Anion Gap 10, Blood Urea Nitrogen 25H, Creatinine 0.73, Estimat Glomerular Filtration Rate > 60, BUN/ Creatinine Ratio 34, Glucose Level 168H, Calcium Level 7.8L, Phosphorus Level 3.7, Magnesium Level 2.5H Microbiology 12/27/18 Blood Culture - Preliminary, Resulted No growth 12/30/18 Mycobacterial Culture - Preliminary, Resulted 12/27/18 Urine Culture - Final, Complete NO GROWTH Assessment/Plan Assessment/Plan Assess & Plan/Chief Complaint Acute respiratory failure. Febrile. COPD. Elevated troponin. Hypotension. Sepsis. Hypoxia. COPD. Gallstones. Thrombocytopenia. . 12/30/18. Acute respiratory failure. Febrile. COPD. Hypotension resolved. Sepsis. Gallstones. Thrombocytopenia stabilized. Patient had a bronchoscopy this a.m. . 12/31/18. Acute respiratory failure. Hypoxia. Pneumonia. Sepsis. Elevated troponin. Thrombocytopenia. Hypotension. Tobacco usage. . 01/01/19 area Acute respiratory failure. Hypoxia. Pneumonia. Sepsis. Elevated troponin. Thrombocytopenia. Hypotension with now hypertension. Tobacco usage. . . 01/01/19. Acute respiratory failure. Hypoxia. Pneumonia. Sepsis. Elevated troponin area Thrombocytopenia. Hypertension with now hypertension. Tobacco usage Clinical Quality Measures DVT/VTE Risk/Contraindication: Risk Factor Score Per Nursin RFS Level Per Nursing on Admit: 4+=Very High ART CASANOVA DO Jan 01, 2019 07:26
--- NOTE | 2019-01-01 07:53 | Diagnostic Imaging Report ---
INDICATION: Shortness of breath Portable chest 2:26 AM There is an ET tube projecting over the trachea. NG tube enters the stomach. Left subclavian central line tip projects over the SVC. There is some volume loss in the right lung with possible basilar infiltrate. Left lung is clear. There is no effusion or pneumothorax. IMPRESSION: Right basilar infiltrate or atelectasis is improved since previous day. Dictated by: Dictated on workstation # [id number]
--- NOTE | 2019-01-01 08:14 | Physical Therapy Progress Note ---
Therapy Progress Note Patient continues to require mechanical ventilator. PT will continue to monitor patient medical status and will assess when patient is able to actively participate with therapy. MALIK BAILEY PT Jan 01, 2019 08:14
[2019-01-01] MEDS ORDERED: TROUGH ORDER-PHARMACY XX ONE (09:00)
[2019-01-01] MEDS: PANTOPRAZOLE 40 MG (PROTONIX) VIAL IV SCH (09:37)
[2019-01-01] MEDS: ENOXAPARIN 40 MG/0.4 ML (LOVENOX) SYR SC SCH (09:37)
[2019-01-01] MEDS: ASPIRIN 81 MG CHEW (CHILDREN'S ASA) PO SCH (09:37)
[2019-01-01] MEDS: VANCOMYCIN 1 GM/NS 250 ML IVPB IV SCH ×4 (09:46→23:01)
[2019-01-01] MEDS: DEXMEDETOMIDINE INJECTION 200 MCG in NS (IVPB) 50 ML IV SCH (09:57)
[2019-01-01 11:15] LABS: ABG BASE EXCESS 6.8 MMOL/L (-2.5-2.5); ABG OXYGEN SATURATION 93 % (94-100); ABG PCO2 52 MMHG (35-45); ABG PO2 66 MMHG (79-93); ABG TCO2 33.5 MMOL/L (21.0-31.0)
--- NOTE | 2019-01-01 11:15 | NUR ---
Pt extubated, sleeping, no family present.
[2019-01-01 11:18] LABS: INSPIRED O2 45%; PATIENT TEMP 96.6; VENTILATOR YES
--- NOTE | 2019-01-01 11:20 | Occ Therapy Progress Note ---
Therapy Progress Note 1050 Pt still on ventilator and sedated. Will continue to follow and evaluate once pt is able to participate. visit KYM MCKNIGHT OT Jan 01, 2019 11:20
--- NOTE | 2019-01-01 11:23 | NUR ---
RECOMMEND INCREASE PULMOCARE TO 60 ML/HR TO PROVIDE 2160 KCAL, 90 GRAMS PROTEIN, 1130 ML FREE WATER. PT WILL NEED ADDITIONAL 1700 ML FLUID PER DAY BETWEEN FLUSHES AND IVF.
[2019-01-01] MEDS ORDERED: PIPERACILLIN/TAZOBACTAM (BULK) 4.5 GM in NS (IVPB) 100 ML IV SCH (13:00)
--- NOTE | 2019-01-01 15:08 | Cardiology Progress Note ---
Cardiology SOAP Progress Note Subjective: Extubated this morning. Objective: I&O/Vital Signs 01/01/19 01/01/19 01/01/19 01/01/19 05:45 06:00 06:15 06:36 Pulse 56 58 58 55 Resp 24 24 24 16 B/P (MAP) 180/73 (108) 182/75 (110) 167/71 (103) Pulse Ox 95 95 95 94 O2 Delivery Mechanical Ventilator Mechanical Ventilator Mechanical Ventilator O2 Flow Rate 45.00 45.00 45.00 FiO2 45 01/01/19 01/01/19 01/01/19 01/01/19 07:00 07:00 07:00 07:51 Temp 97.6 Pulse 57 59 56 Resp 15 16 B/P (MAP) 163/66 (98) Pulse Ox 95 95 O2 Delivery Mechanical Ventilator O2 Flow Rate 45.00 FiO2 45 01/01/19 01/01/19 01/01/19 01/01/19 08:00 08:00 09:07 10:00 Pulse 56 56 Resp 15 15 B/P (MAP) 164/67 (99) 162/74 (103) 146/63 (90) Pulse Ox 92 95 94 O2 Delivery Mechanical Ventilator Mechanical Ventilator Mechanical Ventilator Mechanical Ventilator O2 Flow Rate 45.00 45.00 45.00 FiO2 45 01/01/19 01/01/19 01/01/19 01/01/19 10:06 10:17 11:00 12:00 Temp 96.9 Pulse 55 57 76 Resp 16 20 11 B/P (MAP) 151/56 (87) Pulse Ox 95 96 92 O2 Delivery Mechanical Ventilator O2 Flow Rate 45.00 FiO2 45 01/01/19 01/01/19 01/01/19 01/01/19 12:00 12:00 13:00 13:00 Pulse 91 73 75 Resp 12 11 B/P (MAP) 132/55 (80) 111/46 (67) Pulse Ox 96 84 98 O2 Delivery Simple Mask OxyMask OxyMask O2 Flow Rate 6.00 5.00 5.00 01/01/19 01/01/19 01/01/19 01/01/19 14:00 14:39 15:00 16:00 Pulse 72 78 Resp 13 15 B/P (MAP) 124/50 (74) 105/44 (64) Pulse Ox 96 96 95 96 O2 Delivery OxyMask OxyMask OxyMask Simple Mask O2 Flow Rate 5.00 6.00 5.00 6.00 01/01/19 01/01/19 16:00 17:00 Pulse 71 76 Resp 26 12 B/P (MAP) 106/47 (66) 116/50 (72) Pulse Ox 95 95 O2 Delivery OxyMask OxyMask O2 Flow Rate 5.00 5.00 01/01/19 00:00 Intake Total 380 ml Output Total 725 ml Balance -345 ml Weight (Pounds): 239 Weight (Ounces): 8.0 Weight (Calculated Kilograms): [id number] Constitutional: appears stated age Respiratory: No accessory muscle use, No respiratory distress, No chest tender , No chest expansion is symmetric; chest is bilaterally symmetric; No lungs clear to percussion; lungs clear to auscultation; No crackles, No rhonchi, No rales, No stridor, No wheezing, No pleural rub; other (fair air entry) Cardiovascular: regular rate-rhythm; No irregularly irregular, No extra beats, No parasternal heave is noted, No JVD, No edema, No bradycardia, No tachycardia , No point of maximal impulse, No cardiac thrills are palpable; S1 and S2; No gallop/S3, No gallop/S4, No diastolic murmur; systolic murmur (soft LEANN at card base); No friction rub, No click, No other Gastrointestional: No tender; soft; No round, No distended, No pulsatile mass, No organomegaly, No guarding, No rebound, No tenderness, No hernia, No mass; audible bowel sounds; No abnormal bowel sounds, No abdominal bruits, No spleenomegaly, No other Extremities: No normal range of motion, No non-tender, No normal inspection, No pedal edema, No calf tenderness, No normal capillary refill, No pelvis stable , No calf tenderness, No inflammation, No pedal edema, No slow capillary refill , No swelling, No other, No abrasion, No clubbing, No cyanosis, No ecchymosis, No laceration, No no lower extremity edema bilateral, No significant edema, No tenderness, No wound Neurologic/Psychiatric: other (not able to coperate with a neuro exam; [facility]) Skin: normal color, warm/dry; No diaphoresis, No mottled Results/Procedures: Labs Laboratory Tests 12/31/18 19:30: Triglycerides Level 574H 01/01/19 00:55: Glucometer 128H 01/01/19 04:27: White Blood Count 9.0, Red Blood Count 5.18, Hemoglobin 15.1, Hematocrit 47, Mean Corpuscular Volume 90, Mean Corpuscular Hemoglobin 29, Mean Corpuscular Hemoglobin Concent 32, Red Cell Distribution Width 19.0H, Platelet Count 84L, Mean Platelet Volume 11.0H, Neutrophils (%) (Auto) 85H, Lymphocytes (%) (Auto) 9L, Monocytes (%) (Auto) 5, Eosinophils (%) (Auto) 0, Basophils (%) (Auto) 1, Neutrophils # (Auto) 7.7, Lymphocytes # (Auto) 0.8L, Monocytes # (Auto) 0.4, Eosinophils # (Auto) 0.0, Basophils # (Auto) 0.1, Blood Gas Puncture Site L RAD , Blood Gas Patient Temperature 97.9, Arterial Blood pH 7.45H, Arterial Blood Partial Pressure CO2 41, Arterial Blood Partial Pressure O2 78L, Arterial Blood HCO3 28H, Arterial Blood Total CO2 29.4, Arterial Blood Oxygen Saturation 96, Arterial Blood Base Excess 4.2H, Jeff Test ART LINE, Blood Gas Ventilator Setting YES, Blood Gas Inspired Oxygen 45%, Sodium Level 140, Potassium Level 4.8, Chloride Level 106, Carbon Dioxide Level 24, Anion Gap 10, Blood Urea Nitrogen 25H, Creatinine 0.73, Estimat Glomerular Filtration Rate > 60, BUN/ Creatinine Ratio 34, Glucose Level 168H, Calcium Level 7.8L, Phosphorus Level 3.7, Magnesium Level 2.5H 01/01/19 09:35: Vancomycin Level Trough 11.0 01/01/19 11:09: Blood Gas Puncture Site LEFT RADIAL, Blood Gas Patient Temperature 96.6, Arterial Blood pH 7.40, Arterial Blood Partial Pressure CO2 52H, Arterial Blood Partial Pressure O2 66L, Arterial Blood HCO3 32H, Arterial Blood Total CO2 33.5H , Arterial Blood Oxygen Saturation 93L, Arterial Blood Base Excess 6.8H, Jeff Test NA, Blood Gas Ventilator Setting YES, Blood Gas Inspired Oxygen 45% 01/01/19 13:22: Glucometer 161H Microbiology 12/27/18 Blood Culture - Preliminary, Resulted No growth 12/30/18 Mycobacterial Culture - Preliminary, Resulted 12/27/18 Urine Culture - Final, Complete NO GROWTH A/P: Assessment/Dx: Acute resp failure probably due to R-sided pneumonia Hypoxia due to ac resp failure Elevated troponin due to hypoxia (type 2 HI). No evidence of Type 1 HI Cardiac cath of May 2017: angiographically mild CAD. LVEF 55-60%. LVEDP at the top limit of normal. No significant MR Echo of 09/25/18: LVEF 60-65%, PASP 25 mmHg H/o gallstones. Abdominal u/s of May 2017: the gallbladder is most likely filled with calculi - being followed by Dr. Narayan No evidence of AAA on abd ao screening scan of 04/18/18 Seg pressures of 04/08/18 did not show evidence of significant obstructive PAD COPD Fam h/o early CAD (father to [place] in his early 50s) Chronic tobacco use Hypertension Bipolar disorder Chronic mild, intermittent leg swelling Chronic impaired (somewhat slurred) speech Carotid art dz: 50-60% R ICA and 60-79% L ICA stenoses on carotid u/s of Oct 2018 Plan: * Continue current therapy * Monitor and correct labs Thank you for your consultation. Please call me if you have any questions. Dudley Meza MD, FACP, FACC, FSCAI, FHRS, CCDS Interventional Cardiology Cardiac Electrophysiology Vascular Medicine and Endovascular Interventions Focused Exam Time of Focused Exam: 1440 Katherine MEZA MD Jan 01, 2019 15:08
[2019-01-01] MEDS: CEFEPIME INJECTION 1,000 MG in WATER (STERILE) FOR INJECTION 10 ML IV SCH ×2 (16:27→22:03)
[2019-01-01] MEDS: LACTATED RINGERS 1,000 ML IV SCH (22:02)
[2019-01-02] MEDS ORDERED: NS IV 1000 ML 1,000 ML ONE ×2 (00:48→00:53)
[2019-01-02] MEDS: methylPREDNISolone 40 MG/ML (Solu-MEDROL) VIAL IV SCH ×5 (01:05→23:43)
[2019-01-02 01:07] VITALS: BP 152/74
[2019-01-02] MEDS: RT-ALBUTEROL/IPRATROPIUM 3 ML (DUONEB) VIAL INH SCH ×5 (03:41→19:26)
[2019-01-02 04:06] VITALS: BP 153/76
[2019-01-02 04:07] LABS: BASOPHILS % (AUTO) 0 % (0-10); EOSINOPHILS % (AUTO) 0 % (0-10); HEMATOCRIT 48 % (40-54); HEMOGLOBIN 15.5 G/DL (13.3-17.7); LYMPHOCYTES # (AUTO) 0.9 X 10^3 (1.0-4.0); LYMPHOCYTES % (AUTO) 7 % (12-44); MEAN CORPUSCULAR HEMOGLOBIN 29 PG (25-34); MEAN CORPUSCULAR HGB CONC 32 G/DL (32-36); MEAN CORPUSCULAR VOLUME 90 FL (80-99); MEAN PLATELET VOLUME 12.5 FL (7.4-10.4); MONOCYTES # (AUTO) 0.5 X 10^3 (0.0-1.0); MONOCYTES % (AUTO) 4 % (0-12); NEUTROPHILS # (AUTO) 10.8 X 10^3 (1.8-7.8); NEUTROPHILS % (AUTO) 89 % (42-75); PLATELET COUNT 71 10^3/uL (130-400); RED CELL DISTRIBUTION WIDTH 18.1 % (10.0-14.5); WHITE BLOOD COUNT 12.2 10^3/uL (4.3-11.0)
[2019-01-02] MEDS: CEFEPIME INJECTION 1,000 MG in WATER (STERILE) FOR INJECTION 10 ML IV SCH ×4 (04:11→20:09)
[2019-01-02 04:22] LABS: BUN/CREATININE RATIO 32; CALCIUM 8.2 MG/DL (8.5-10.1); CARBON DIOXIDE 32 MMOL/L (21-32); CHLORIDE 99 MMOL/L (98-107); CREATININE SERUM 0.71 MG/DL (0.60-1.30); GFR ESTIMATED > 60; GLUCOSE 120 MG/DL (70-105); MAGNESIUM 2.3 MG/DL (1.8-2.4); SODIUM 141 MMOL/L (135-145)
[2019-01-02] MEDS: fentaNYL INJECTION 1,250 MCG in NS (IVPB) 250 ML IV SCH (04:25)
[2019-01-02 05:10] LABS: EOSINOPHILS % (MANUAL) 1 %; LYMPHOCYTES % (MANUAL) 5 %; MONOCYTES % (MANUAL) 3 %; NEUTROPHILS % (MANUAL) 91 %
[2019-01-02] MEDS: POTASSIUM CL 10MEQ/50ML IVPB 50 ML IV SCH (06:05)
[2019-01-02] MEDS: MAGNESIUM 1 GM/100 ML IVPB 100 ML IV SCH (06:05)
[2019-01-02] MEDS: KCL 20 MEQ TAB (K-DUR) PO SCH (06:06)
[2019-01-02] MEDS: inSUlin ASPART (NovoLOG) 1 UNIT/0.01 ML (CHARGE PER UNIT) SQ SCH ×4 (06:06→20:09)
[2019-01-02] MEDS: VASOPRESSIN INJECTION 20 UNIT in NS (IVPB) 100 ML IV SCH (06:23)
--- NOTE | 2019-01-02 07:03 | Pulmonary Progress Note ---
Subjective Time Seen by a Provider: 07:03 Subjective/Events-last exam Pt is doing well off vent. Sepsis Event Evaluation Height, Weight, BMI Height: 5'7.00" Weight: 240lbs. 8.0oz. [id number]; 34.8 BMI Method:Stated Focused Exam Time of Focused Exam: 1440 Exam Exam Vital Signs Date Time Temp Pulse Resp B/P (MAP) Pulse Ox O2 Delivery O2 Flow Rate FiO2 01/02/19 04:06 98.9 73 26 153/76 (101) 93 Nasal Cannula 4.00 01/02/19 04:00 93 Nasal Cannula 4.00 01/02/19 03:44 96 Nasal Cannula 4.00 01/02/19 01:07 98.0 66 22 152/74 (100) 96 Nasal Cannula 4.00 01/02/19 00:00 97 Nasal Cannula 4.00 01/01/19 22:29 96 4.00 01/01/19 22:07 150/73 (98) 01/01/19 20:00 79 23 150/73 (98) 94 Nasal Cannula 4.00 01/01/19 20:00 97 Nasal Cannula 5.00 01/01/19 19:46 97.5 Nasal Cannula 4.00 01/01/19 19:00 78 40 95 01/01/19 19:00 72 01/01/19 18:16 96 OxyMask 6.00 01/01/19 18:00 69 18 95 OxyMask 5.00 01/01/19 17:00 76 12 116/50 (72) 95 OxyMask 5.00 01/01/19 16:00 71 26 106/47 (66) 95 OxyMask 5.00 01/01/19 16:00 96 Simple Mask 6.00 01/01/19 15:00 78 15 105/44 (64) 95 OxyMask 5.00 01/01/19 14:39 96 OxyMask 6.00 01/01/19 14:00 72 13 124/50 (74) 96 OxyMask 5.00 01/01/19 13:00 75 11 111/46 (67) 98 OxyMask 5.00 01/01/19 13:00 73 01/01/19 12:00 91 12 132/55 (80) 84 OxyMask 5.00 01/01/19 12:00 96 Simple Mask 6.00 01/01/19 12:00 96.9 01/01/19 11:00 76 11 151/56 (87) 92 Mechanical Ventilator 45.00 01/01/19 10:17 57 20 96 01/01/19 10:06 55 16 95 45 01/01/19 10:00 56 15 146/63 (90) 94 Mechanical Ventilator 45.00 01/01/19 09:07 162/74 (103) Mechanical Ventilator 45.00 01/01/19 08:00 56 15 164/67 (99) 95 Mechanical Ventilator 45.00 01/01/19 08:00 92 Mechanical Ventilator 45 01/01/19 07:51 56 16 95 45 01/01/19 07:00 59 15 163/66 (98) 95 Mechanical Ventilator 45.00 01/01/19 07:00 57 01/01/19 07:00 97.6 I & O 01/02/19 07:00 Output Total 6300 ml Balance -6300 ml Height & Weight Height: 5'7.00" Weight: 240lbs. 8.0oz. 108.297119yp; 34.8 BMI Method:Stated General Appearance: No Apparent Distress, WD/WN HEENT: Normal ENT Inspection, Other (Patient intubated) Neck: Normal Inspection Respiratory: Lungs Clear, No Accessory Muscle Use, No Respiratory Distress, Decreased Breath Sounds Cardiovascular: Regular Rate, Rhythm, No Murmur Capillary Refill: Less Than 3 Seconds Peripheral Pulses: 3+ Radial Pulses (L) Gastrointestinal: non tender, soft Extremity: Normal Inspection, No Pedal Edema Neurologic/Psychiatric: Other (sedated) Results Lab Laboratory Tests 01/01/19 04:27 01/02/19 04:00 Assessment/Plan Assessment/Plan -Acute on chronic respiratory failure EF 60 65% -Pt is doing well off ventilator -Solumedrol 40 Q 6 -Hep lock IVF -Pt needs home vent to mask upon discharge he is high risk for frequent readmissions and worsening respiratory failure. -Pt is from custodial so will not be able to get home vent to mask -Will ask SW to see if we can get pt BiPAP for after discharge Pneumonia with severe sepsis with mucous plugging -Sputum growing Corynebacterium and enterobacter -Cefepime, and Vanco -S/p bronchoscopy -Duoneb Q4 with easy PAP -INflu neg Atelectasis -IS -Easy PAP with Q4 DuoNeb Mediastinal lymphadenopathy probably reactive however present and worse since r/o cancer -Will need to repeat CT scan 8 wks after discharge. COPDAE -SVNS -steroids Elevated troponin - probably secondary to hypoxia -Cardiology following -repeat troponin Tobacco use -Education KEYONA EVANS DO Jan 02, 2019 07:03
--- NOTE | 2019-01-02 07:32 | Progress Note (SOAP) ---
Subjective Time Seen by a Provider: 07:29 Subjective/Events-last exam She able to talk today. Patient off vent. Patient doing better. Pneumonia x-ray looks better from yesterday. Focused Exam Time of Focused Exam: 1440 Objective Exam Vital Signs Date Time Temp Pulse Resp B/P (MAP) Pulse Ox O2 Delivery O2 Flow Rate FiO2 01/02/19 04:06 98.9 73 26 153/76 (101) 93 Nasal Cannula 4.00 01/02/19 04:00 93 Nasal Cannula 4.00 01/02/19 03:44 96 Nasal Cannula 4.00 01/02/19 01:07 98.0 66 22 152/74 (100) 96 Nasal Cannula 4.00 01/02/19 00:00 97 Nasal Cannula 4.00 01/01/19 22:29 96 4.00 01/01/19 22:07 150/73 (98) 01/01/19 20:00 79 23 150/73 (98) 94 Nasal Cannula 4.00 01/01/19 20:00 97 Nasal Cannula 5.00 01/01/19 19:46 97.5 Nasal Cannula 4.00 01/01/19 19:00 78 40 95 01/01/19 19:00 72 01/01/19 18:16 96 OxyMask 6.00 01/01/19 18:00 69 18 95 OxyMask 5.00 01/01/19 17:00 76 12 116/50 (72) 95 OxyMask 5.00 01/01/19 16:00 71 26 106/47 (66) 95 OxyMask 5.00 01/01/19 16:00 96 Simple Mask 6.00 01/01/19 15:00 78 15 105/44 (64) 95 OxyMask 5.00 01/01/19 14:39 96 OxyMask 6.00 01/01/19 14:00 72 13 124/50 (74) 96 OxyMask 5.00 01/01/19 13:00 75 11 111/46 (67) 98 OxyMask 5.00 01/01/19 13:00 73 01/01/19 12:00 91 12 132/55 (80) 84 OxyMask 5.00 01/01/19 12:00 96 Simple Mask 6.00 01/01/19 12:00 96.9 01/01/19 11:00 76 11 151/56 (87) 92 Mechanical Ventilator 45.00 01/01/19 10:17 57 20 96 01/01/19 10:06 55 16 95 45 01/01/19 10:00 56 15 146/63 (90) 94 Mechanical Ventilator 45.00 01/01/19 09:07 162/74 (103) Mechanical Ventilator 45.00 01/01/19 08:00 56 15 164/67 (99) 95 Mechanical Ventilator 45.00 01/01/19 08:00 92 Mechanical Ventilator 45 01/01/19 07:51 56 16 95 45 I & O 01/02/19 07:00 Output Total 7100 ml Balance -7100 ml Capillary Refill : Less Than 3 SecondsLess Than 3 Seconds General Appearance: No Apparent Distress, WD/WN HEENT: Normal ENT Inspection Neck: Full Range of Motion, Normal Inspection Respiratory: No Accessory Muscle Use, No Respiratory Distress, Decreased Breath Sounds Cardiovascular: Regular Rate, Rhythm, No Murmur Gastrointestinal: non tender, soft Results Lab Laboratory Tests 01/02/19 04:00 Laboratory Tests 01/01/19 09:35: Vancomycin Level Trough 11.0 01/01/19 11:09: Blood Gas Puncture Site LEFT RADIAL, Blood Gas Patient Temperature 96.6, Arterial Blood pH 7.40, Arterial Blood Partial Pressure CO2 52H, Arterial Blood Partial Pressure O2 66L, Arterial Blood HCO3 32H, Arterial Blood Total CO2 33.5H , Arterial Blood Oxygen Saturation 93L, Arterial Blood Base Excess 6.8H, Jeff Test NA, Blood Gas Ventilator Setting YES, Blood Gas Inspired Oxygen 45% 01/01/19 13:22: Glucometer 161H 01/01/19 20:51: Glucometer 141H 01/02/19 04:00: White Blood Count 12.2H, Red Blood Count 5.35, Hemoglobin 15.5, Hematocrit 48, Mean Corpuscular Volume 90, Mean Corpuscular Hemoglobin 29, Mean Corpuscular Hemoglobin Concent 32, Red Cell Distribution Width 18.1H, Platelet Count 71L, Mean Platelet Volume 12.5H, Neutrophils (%) (Auto) 89H, Lymphocytes (%) (Auto) 7L, Monocytes (%) (Auto) 4, Eosinophils (%) (Auto) 0, Basophils (%) (Auto) 0, Neutrophils # (Auto) 10.8H, Lymphocytes # (Auto) 0.9L, Monocytes # (Auto) 0.5, Eosinophils # (Auto) 0.0, Basophils # (Auto) 0.0, Neutrophils % (Manual) 91, Lymphocytes % (Manual) 5, Monocytes % (Manual) 3, Eosinophils % (Manual) 1, Sodium Level 141, Potassium Level 5.0, Chloride Level 99, Carbon Dioxide Level 32, Anion Gap 10, Blood Urea Nitrogen 23H, Creatinine 0.71, Estimat Glomerular Filtration Rate > 60, BUN/Creatinine Ratio 32, Glucose Level 120H, Calcium Level 8.2L, Phosphorus Level 4.0, Magnesium Level 2.3 Microbiology 12/27/18 Blood Culture - Preliminary, Resulted No growth 12/30/18 Mycobacterial Culture - Preliminary, Resulted 12/27/18 Urine Culture - Final, Complete NO GROWTH Assessment/Plan Assessment/Plan Assess & Plan/Chief Complaint Acute respiratory failure. Febrile. COPD. Elevated troponin. Hypotension. Sepsis. Hypoxia. COPD. Gallstones. Thrombocytopenia. . 12/30/18. Acute respiratory failure. Febrile. COPD. Hypotension resolved. Sepsis. Gallstones. Thrombocytopenia stabilized. Patient had a bronchoscopy this a.m. . 12/31/18. Acute respiratory failure. Hypoxia. Pneumonia. Sepsis. Elevated troponin. Thrombocytopenia. Hypotension. Tobacco usage. . 01/01/19 area Acute respiratory failure. Hypoxia. Pneumonia. Sepsis. Elevated troponin. Thrombocytopenia. Hypotension with now hypertension. Tobacco usage. . . 01/01/19. Acute respiratory failure. Hypoxia. Pneumonia. Sepsis. Elevated troponin area Thrombocytopenia. Hypertension with now hypertension. Tobacco usage. . 01/02/19 acute respiratory failure resolved. Hypoxia resolved. Pneumonia improving. Sepsis. Elevated troponin. Thrombocytopenia getting worse area Tobacco usage. Patient going to medical floor today Clinical Quality Measures DVT/VTE Risk/Contraindication: Risk Factor Score Per Nursin RFS Level Per Nursing on Admit: 4+=Very High ART CASANOVA DO Jan 02, 2019 07:32
[2019-01-02] MEDS: ASPIRIN 81 MG CHEW (CHILDREN'S ASA) PO SCH (08:39)
[2019-01-02] MEDS: ENOXAPARIN 40 MG/0.4 ML (LOVENOX) SYR SC SCH (08:39)
[2019-01-02] MEDS: PANTOPRAZOLE 40 MG (PROTONIX) VIAL IV SCH (08:39)
--- NOTE | 2019-01-02 09:00 | Diagnostic Imaging Report ---
INDICATION: Right lower lobe pneumonia. TIME OF EXAM: 3:21 AM Correlation is made with prior study from one day earlier. FINDINGS: Infiltrate has developed in the right base. There appears to be a small amount of pleural fluid as well. Left lung is fairly clear apart from questionable minimal infiltrate or atelectasis in the base. There is no pneumothorax. Left-sided line has tip overlying the SVC right atrial junction. IMPRESSION: Developing basilar infiltrates, greatest on the right as well as small right effusion since examination one day earlier. Dictated by: Dictated on workstation # [id number]
--- NOTE | 2019-01-02 09:12 | Physical Therapy Evaluation ---
PT Evaluation-General Medical Diagnosis Admission Date Dec 27, 2018 at 16:14 Medical Diagnosis: septic shock/pneumonia Onset Date: Dec 27, 2018 Therapy Diagnosis Therapy Diagnosis: generalized weakness Height/Weight Height (Feet): 5 Height (Inches): 7.00 Weight (Pounds): 240 Weight (Ounces): 8.0 Precautions Precautions/Isolations: Contact Isolation, Aspiration, Fall Prevention, Pressure Ulcer Weight Bear Status Right Lower Extremity: Right Weight Bearing/Tolerated Left Lower Extremity: Left Weight Bearing/Tolerated Referral Physician: Nyla Reason for Referral: Evaluation/Treatment Medical History Pertinent Medical History: COPD, GERD, HTN, Smoking Additional Medical History hepatitis Current History EMS from [place] secondary to hypoxia/SAO2 76% RA at [place] Reviewed History: Yes Social History Home: Assisted Prior/Core FIM Prior Level of Function Therapy Code Descriptions/Definitions Functional [place] Measure: 0=Not Assessed/NA 4=Minimal Assistance 1=Total Assistance 5=Supervision or Setup 2=Maximal Assistance 6=Modified [place] 3=Moderate Assistance 7=Complete [place] Therapy Quality Codes: 6 Independent with activity with or without an assistive device 5 Patient requires set up or clean up by helper. Patient completes activity by themselves 4 Supervision or touching assist (CGA). [place] provide cues , steadying assist 3 The helper provides less than half the effort to complete the activity 2 The helper provides more than half the effort to complete the activity 1 Dependent. The helper does all the effort to complete an activity 7 Patient refused to complete or attempt activity 9 The patient did not perform the activity before the current illness or injury 88 Not attempted due to Medical conditions or safety concerns Functional Abilities and Goals: Independent: Patient completed the activities by him/herself, with or without an assistive device, with no assistance from a helper. Needed Some Help: Patient needed partial assistance from another person to complete activities. Dependent: A helper completed the activities for the patient. Unknown: Not Applicable: Bed Mobility: 3 Transfers (B,C,W/C) (FIM): 3 Indoor Mobility (Ambulation): Needed Some Help Stairs: Needed Some Help PT Evaluation-Current Subjective Patient agrees to up in chair. Pain Numeric Pain Scale: 0-No Pain Location: No Pain Reported Objective Patient Orientation: Person Problem Solving: Poor Attachments: Oxygen, Aguilar Catheter, IV ROM/Strength ROM Lower Extremities bilateral LE WFL Strength Lower Extremities 3-/5 grossly bilaterally Integumentary/Posture Integumentary refer to nursing notes Bowel Incontinence: Yes Bladder Incontinence: Aguilar Cath Posture WFL Neuromuscular (Tone, Coordination, Reflexes) diminished coordination Sensory Vision: Functional Hearing: Impaired Sensation Right Lower Extremit: Impaired Sensation Left Lower Extremity: Impaired Transfers Therapy Code Descriptions/Definitions Functional [place] Measure: 0=Not Assessed/NA 4=Minimal Assistance 1=Total Assistance 5=Supervision or Setup 2=Maximal Assistance 6=Modified [place] 3=Moderate Assistance 7=Complete [place] Transfers (B, C, W/C) (FIM): 2 Scootin Rollin Supine to/from Sit: 2 Sit to/from Stand: 2 bed t/f WC(FIM only if WC use): 2 max assist with all mobility/difficulty following simple direction Balance Sitting Static: Poor Sitting Dynamic: Poor Standing Static: Poor Standing Dynamic: Poor Assessment/Needs 58 y.o. male, will benefit from skilled PT to address functional strength and mobility to improve current LOF. Patient is from [place] and will continue to benefit from skilled NHP upon discharge, from a PT standpoint. Rehab Potential: Guarded PT Experience Specialist Goals Experience Specialist Goals PT Experience Specialist Goals Time Frame: Jan 16, 2019 Transfers (B,C,W/C) (FIM): 4 Gait (FIM): 1 Gait distance (FIM): 1=up to 49 ft Distance: 10' Gait Level of Assist: 3 Gait Assistive Device: FWW PT Plan Problem List Problem List: Activity Tolerance, Functional Strength, Safety, Balance, Gait, Transfer, Bed Mobility Treatment/Plan Treatment Plan: Continue Plan of Care Treatment Plan: Bed Mobility, Education, Functional Activity Gracy, Functional Strength, Group Therapy, Gait, Safety, Therapeutic Exercise, Transfers Treatment Duration: Jan 16, 2019 Frequency: 6 times per week Estimated Hrs Per Day: .25 hour per day Patient and/or Family Agrees t: Yes Discharge Recommendations Therapy D/C Recommendations: Assisted Placement, Intermediate (TCU/NH) Time/GCodes Time In: 810 Time Out: 828 Total Billed Treatment Time: 18 Total Billed Treatment 1 visit EVModC 18 min MALIK BAILEY PT Jan 02, 2019 09:12
[2019-01-02] MEDS: VANCOMYCIN 1 GM/NS 250 ML IVPB IV SCH ×4 (09:17→22:02)
--- NOTE | 2019-01-02 12:40 | Cardiology Progress Note ---
Cardiology SOAP Progress Note Subjective: No cardiac symptoms. Objective: I&O/Vital Signs 01/02/19 01/02/19 01/02/19 01/02/19 01:07 03:44 04:00 04:06 Temp 98.0 98.9 Pulse 66 73 Resp 22 26 B/P (MAP) 152/74 (100) 153/76 (101) Pulse Ox 96 96 93 93 O2 Delivery Nasal Cannula Nasal Cannula Nasal Cannula Nasal Cannula O2 Flow Rate 4.00 4.00 4.00 4.00 01/02/19 01/02/19 01/02/19 01/02/19 07:00 07:00 07:40 08:00 Pulse 83 64 Resp 35 Pulse Ox 95 98 93 O2 Delivery Nasal Cannula Nasal Cannula Nasal Cannula O2 Flow Rate 4.00 4.00 4.00 01/02/19 01/02/19 01/02/19 01/02/19 08:00 08:00 09:00 10:00 Temp 98.7 Pulse 68 76 73 Resp 25 33 33 Pulse Ox 95 93 93 O2 Delivery Nasal Cannula Nasal Cannula Nasal Cannula O2 Flow Rate 4.00 4.00 4.00 01/02/19 01/02/19 01/02/19 01/02/19 11:20 12:00 12:00 12:00 Temp 98.1 Pulse 74 Resp 13 Pulse Ox 91 93 O2 Delivery Nasal Cannula High Flow N/C Nasal Cannula O2 Flow Rate 5.00 5.00 4.00 FiO2 96 01/02/19 00:00 Output Total 3700 ml Balance -3700 ml Weight (Pounds): 240 Weight (Ounces): 8.0 Weight (Calculated Kilograms): [id number] Constitutional: appears stated age Respiratory: No accessory muscle use, No respiratory distress, No chest tender , No chest expansion is symmetric; chest is bilaterally symmetric; No lungs clear to percussion; lungs clear to auscultation; No crackles, No rhonchi, No rales, No stridor, No wheezing, No pleural rub; other (fair air entry) Cardiovascular: regular rate-rhythm; No irregularly irregular, No extra beats, No parasternal heave is noted, No JVD, No edema, No bradycardia, No tachycardia , No point of maximal impulse, No cardiac thrills are palpable; S1 and S2; No gallop/S3, No gallop/S4, No diastolic murmur; systolic murmur (soft LEANN at card base); No friction rub, No click, No other Gastrointestional: No tender; soft; No round, No distended, No pulsatile mass, No organomegaly, No guarding, No rebound, No tenderness, No hernia, No mass; audible bowel sounds; No abnormal bowel sounds, No abdominal bruits, No spleenomegaly, No other Extremities: No normal range of motion, No non-tender, No normal inspection, No pedal edema, No calf tenderness, No normal capillary refill, No pelvis stable , No calf tenderness, No inflammation, No pedal edema, No slow capillary refill , No swelling, No other, No abrasion, No clubbing, No cyanosis, No ecchymosis, No laceration, No no lower extremity edema bilateral, No significant edema, No tenderness, No wound Neurologic/Psychiatric: other (not able to coperate with a neuro exam; on [facility] vent) Skin: normal color, warm/dry; No diaphoresis, No mottled Results/Procedures: Labs Laboratory Tests 01/01/19 13:22: Glucometer 161H 01/01/19 20:51: Glucometer 141H 01/02/19 04:00: White Blood Count 12.2H, Red Blood Count 5.35, Hemoglobin 15.5, Hematocrit 48, Mean Corpuscular Volume 90, Mean Corpuscular Hemoglobin 29, Mean Corpuscular Hemoglobin Concent 32, Red Cell Distribution Width 18.1H, Platelet Count 71L, Mean Platelet Volume 12.5H, Neutrophils (%) (Auto) 89H, Lymphocytes (%) (Auto) 7L, Monocytes (%) (Auto) 4, Eosinophils (%) (Auto) 0, Basophils (%) (Auto) 0, Neutrophils # (Auto) 10.8H, Lymphocytes # (Auto) 0.9L, Monocytes # (Auto) 0.5, Eosinophils # (Auto) 0.0, Basophils # (Auto) 0.0, Neutrophils % (Manual) 91, Lymphocytes % (Manual) 5, Monocytes % (Manual) 3, Eosinophils % (Manual) 1, Sodium Level 141, Potassium Level 5.0, Chloride Level 99, Carbon Dioxide Level 32, Anion Gap 10, Blood Urea Nitrogen 23H, Creatinine 0.71, Estimat Glomerular Filtration Rate > 60, BUN/Creatinine Ratio 32, Glucose Level 120H, Calcium Level 8.2L, Phosphorus Level 4.0, Magnesium Level 2.3 Microbiology 12/27/18 Blood Culture - Final, Complete No growth 12/30/18 Mycobacterial Culture - Preliminary, Resulted 12/27/18 Urine Culture - Final, Complete NO GROWTH A/P: Assessment/Dx: Acute resp failure probably due to R-sided pneumonia Hypoxia due to ac resp failure Elevated troponin due to hypoxia (type 2 MS). No evidence of Type 1 MS Cardiac cath of May 2017: angiographically mild CAD. LVEF 55-60%. LVEDP at the top limit of normal. No significant MR Echo of 09/25/18: LVEF 60-65%, PASP 25 mmHg H/o gallstones. Abdominal u/s of May 2017: the gallbladder is most likely filled with calculi - being followed by Dr. Narayan No evidence of AAA on abd ao screening scan of 04/18/18 Seg pressures of 04/08/18 did not show evidence of significant obstructive PAD COPD Fam h/o early CAD (father to MS in his early 50s) Chronic tobacco use Hypertension Bipolar disorder Chronic mild, intermittent leg swelling Chronic impaired (somewhat slurred) speech Carotid art dz: 50-60% R ICA and 60-79% L ICA stenoses on carotid u/s of Oct 2018 Plan: * Continue current therapy * Monitor and correct labs Thank you for your consultation. Please call me if you have any questions. Dudley Meza MD, FACP, FACC, FSCAI, FHRS, CCDS Interventional Cardiology Cardiac Electrophysiology Vascular Medicine and Endovascular Interventions Focused Exam Time of Focused Exam: 1440 Katherine MEZA MD Jan 02, 2019 12:40 pm
--- NOTE | 2019-01-02 13:51 | Occupational Therapy Eval ---
OT Evaluation-General/PLF Medical Diagnosis Admission Date Dec 27, 2018 at 16:14 Medical Diagnosis: septic shock/pneumonia Onset Date: Dec 27, 2018 Therapy Diagnosis Therapy Diagnosis: impaired self care skills Height/Weight Height (Feet): 5 Height (Inches): 7.00 Weight (Pounds): 240 Weight (Ounces): 8.0 Precautions Precautions/Isolations: Contact Isolation, Fall Prevention, Standard Precautions, Pressure Ulcer Safety Interventions: Bed Exit Alarm, Reorient-PRN Referral Physician: Nyla Medical History Pertinent Medical History: COPD, GERD, HTN, Smoking Additional Medical History Hep C, anxiety, colon cancer, depression Reviewed History: Yes Social History Home: Care Home ADL-Prior Level of Function Therapy Code Descriptions/Definitions Functional [place] Measure: 0=Not Assessed/NA 4=Minimal Assistance 1=Total Assistance 5=Supervision or Setup 2=Maximal Assistance 6=Modified [place] 3=Moderate Assistance 7=Complete [place] Therapy Quality Codes: 6 Independent with activity with or without an assistive device 5 Patient requires set up or clean up by helper. Patient completes activity by themselves 4 Supervision or touching assist (CGA). [place] provide cues , steadying assist 3 The helper provides less than half the effort to complete the activity 2 The helper provides more than half the effort to complete the activity 1 Dependent. The helper does all the effort to complete an activity 7 Patient refused to complete or attempt activity 9 The patient did not perform the activity before the current illness or injury 88 Not attempted due to Medical conditions or safety concerns Functional Abilities and Goals: Independent: Patient completed the activities by him/herself, with or without an assistive device, with no assistance from a helper. Needed Some Help: Patient needed partial assistance from another person to complete activities. Dependent: A helper completed the activities for the patient. Unknown: Not Applicable: ADL PLOF Comments Pt reports completing most basic self care tasks. Receives assist as needed. Uses walker for mobility Self Care: Needed Some Help OT Current Status Subjective Pt sitting in chair, agrees to therapy. Pt reports back pain. Mental Status/Objective Patient Orientation: Person Attachments: Aguilar Catheter, IV, Oxygen Current Hand Dominance: Left Upper Extremity ROM Pt has decreased bilateral shoulder ROM. Pt's right wrist is in a splint. Pt states he had a wrist fracture a couple months ago, so has been wearing the splint. Pt states he was told it was almost healed Upper Extremity Coordination decreased Upper Extremity Strength decreased bilaterally ADL-Treatment ADL-Current Pt participated in UE assessment while seated. Pt had an episode of coughing which resulted in decreased oxygen saturation. Required rest break to recover and cues for breathing. Pt washed face with minimal assistance to reach forehead using left hand. Education provided regarding role of OT. Pt states understanding and is in agreement. Pt sitting in chair with needs met after session. Therapy Code Descriptions/Definitions Functional [place] Measure: 0=Not Assessed/NA 4=Minimal Assistance 1=Total Assistance 5=Supervision or Setup 2=Maximal Assistance 6=Modified [place] 3=Moderate Assistance 7=Complete [place] Therapy Quality Codes: 6 Independent with activity with or without an assistive device 5 Patient requires set up or clean up by helper. Patient completes activity by themselves 4 Supervision or touching assist (CGA). [place] provide cues , steadying assist 3 The helper provides less than half the effort to complete the activity 2 The helper provides more than half the effort to complete the activity 1 Dependent. The helper does all the effort to complete an activity 7 Patient refused to complete or attempt activity 9 The patient did not perform the activity before the current illness or injury 88 Not attempted due to Medical conditions or safety concerns Education OT Patient Education: Rehab process Teaching Recipient: Patient Teaching Methods: Discussion Response to Teaching: Reinforcement Needed OT Short Term Goals Short Term Goals 1=Demonstrate adherence to instructed precautions during ADL tasks. 2=Patient will verbalize/demonstrate understanding of assistive devices/ modifications for ADL. 3=Patient will improve strength/tolerance for activity to enable patient to perform ADL's. OT Half-Way Goals Manager Group Home Goals Time Frame: Jan 16, 2019 Eating (FIM): 5 Grooming(FIM): 5 Upper Body Dressing(FIM): 5 Lower Body Dressing(FIM): 4 Toileting(FIM): 4 Toilet/Commode Transfer(FIM): 4 Additional Goals: 1-Demonstrate ADL Tasks, 2-Verbalize Understanding, 3- ImproveStrength/Gracy 1=Demonstrate adherence to instructed precautions during ADL tasks. 2=Patient will verbalize/demonstrate understanding of assistive devices/ modifications for ADL. 3=Patient will improve strength/tolerance for activity to enable patient to perform ADL's. OT Education/Plan Problem List/Assessment Assessment: Decreased Activ Tolerance, Decreased UE Strength, Dependent Transfers, Impaired Self-Care Skills Pt to benefit from skilled OT intervention for ADL training, transfers, and strengthening to maximize level of independence and allow safe discharge plan. Discharge Recommendations Plan/Recommendations: Continue POC Treatment Plan/Plan of Care Treatment,Training & Education: Yes Patient would benefit from OT for education, treatment and training to promote independence in ADL's, mobility, safety and/or upper extremity function for ADL' s. Plan of Care: ADL Retraining, Functional Mobility, UE Funct Exercise/Act Treatment Duration: Jan 16, 2019 Frequency: 5 times per week Estimated Hrs Per Day: .25 hour per day Rehab Potential: Guarded Time/GCodes Start Time: 10:41 Stop Time: 10:58 Total Time Billed (hr/min): 17 Billed Treatment Time 1 visit, EVM(17minutes) DAPHNEY RUIZ OT Jan 02, 2019 13:51
--- NOTE | 2019-01-02 14:50 | NUR ---
Report received from SHUKRI Dean. Agree with previous assessment.
[2019-01-02 16:00] VITALS: BP 166/79
[2019-01-02 20:00] VITALS: BP 167/97
[2019-01-02] MEDS ORDERED: CEFEPIME 1 GM (MAXIPIME) VIAL ONE (20:00)
[2019-01-02] MEDS ORDERED: WATER (STERILE) FOR INJECTION 10 ML ONE (20:00)
[2019-01-02] MEDS ORDERED: RT-ALBUTEROL/IPRATROPIUM 3 ML (DUONEB) VIAL INH PRN (23:49)
[2019-01-03] VITALS: BP 172/82
[2019-01-03] MEDS ORDERED: WATER (STERILE) FOR INJECTION 10 ML ONE ×2 (02:17→20:10)
[2019-01-03] MEDS ORDERED: CEFEPIME 1 GM (MAXIPIME) VIAL ONE ×2 (02:17→20:09)
[2019-01-03] MEDS: CEFEPIME INJECTION 1,000 MG in WATER (STERILE) FOR INJECTION 10 ML IV SCH ×5 (02:22→21:06)
[2019-01-03 04:00] VITALS: BP 178/85
[2019-01-03] MEDS: methylPREDNISolone 40 MG/ML (Solu-MEDROL) VIAL IV SCH ×4 (05:30→23:28)
[2019-01-03] MEDS: inSUlin ASPART (NovoLOG) 1 UNIT/0.01 ML (CHARGE PER UNIT) SQ SCH ×2 (05:32→11:47)
[2019-01-03 05:50] LABS: BASOPHILS % (AUTO) 0 % (0-10); EOSINOPHILS % (AUTO) 0 % (0-10); HEMATOCRIT 50 % (40-54); HEMOGLOBIN 16.8 G/DL (13.3-17.7); LYMPHOCYTES # (AUTO) 0.7 X 10^3 (1.0-4.0); LYMPHOCYTES % (AUTO) 8 % (12-44); MEAN CORPUSCULAR HEMOGLOBIN 29 PG (25-34); MEAN CORPUSCULAR HGB CONC 34 G/DL (32-36); MEAN CORPUSCULAR VOLUME 87 FL (80-99); MEAN PLATELET VOLUME 11.6 FL (7.4-10.4); MONOCYTES # (AUTO) 0.8 X 10^3 (0.0-1.0); MONOCYTES % (AUTO) 8 % (0-12); NEUTROPHILS # (AUTO) 8.2 X 10^3 (1.8-7.8); NEUTROPHILS % (AUTO) 84 % (42-75); PLATELET COUNT 73 10^3/uL (130-400); RED CELL DISTRIBUTION WIDTH 16.7 % (10.0-14.5); WHITE BLOOD COUNT 9.8 10^3/uL (4.3-11.0)
[2019-01-03 06:09] LABS: BUN/CREATININE RATIO 35; CALCIUM 8.6 MG/DL (8.5-10.1); CARBON DIOXIDE 31 MMOL/L (21-32); CHLORIDE 94 MMOL/L (98-107); CREATININE SERUM 0.72 MG/DL (0.60-1.30); GFR ESTIMATED > 60; GLUCOSE 115 MG/DL (70-105); MAGNESIUM 2.5 MG/DL (1.8-2.4); PHOSPHORUS 3.2 MG/DL (2.3-4.7); POTASSIUM 4.3 MMOL/L (3.6-5.0); SODIUM 136 MMOL/L (135-145)
[2019-01-03] MEDS: RT-ALBUTEROL/IPRATROPIUM 3 ML (DUONEB) VIAL INH SCH ×4 (06:53→19:34)
[2019-01-03 08:00] VITALS: BP 174/93
--- NOTE | 2019-01-03 08:38 | Pulmonary Progress Note ---
Sepsis Event Evaluation Height, Weight, BMI Height: 5'7.00" Weight: 238lbs. 6.0oz. 108.795172ut; 34.8 BMI Method:Stated Focused Exam Time of Focused Exam: 1440 Exam Exam Vital Signs Date Time Temp Pulse Resp B/P (MAP) Pulse Ox O2 Delivery O2 Flow Rate FiO2 01/03/19 06:53 92 Nasal Cannula 6.00 01/03/19 04:00 99.4 84 22 178/85 (116) 93 Nasal Cannula 6.00 01/03/19 00:00 98.2 82 24 172/82 (112) 91 Nasal Cannula 6.00 01/02/19 23:49 90 Nasal Cannula 6.00 01/02/19 21:00 High Flow N/C 6.00 01/02/19 20:00 98.8 94 24 167/97 (120) 93 Nasal Cannula 6.00 01/02/19 19:26 91 Nasal Cannula 5.00 01/02/19 16:00 97.8 80 18 166/79 (108) 93 Nasal Cannula 5.00 01/02/19 14:08 93 Nasal Cannula 5.00 01/02/19 14:00 68 92 Nasal Cannula 4.00 01/02/19 13:00 69 01/02/19 13:00 72 10 91 Nasal Cannula 4.00 01/02/19 12:00 74 13 93 Nasal Cannula 4.00 01/02/19 12:00 98.1 01/02/19 12:00 91 High Flow N/C 5.00 01/02/19 11:20 Nasal Cannula 5.00 96 01/02/19 10:00 73 33 93 Nasal Cannula 4.00 01/02/19 09:00 76 33 93 Nasal Cannula 4.00 I & O 01/03/19 07:00 Intake Total 1410 ml Output Total 4250 ml Balance -2840 ml Height & Weight Height: 5'7.00" Weight: 238lbs. 6.0oz. 108.001431px; 34.8 BMI Method:Stated General Appearance: No Apparent Distress, WD/WN HEENT: Normal ENT Inspection Neck: Full Range of Motion, Normal Inspection Respiratory: No Accessory Muscle Use, No Respiratory Distress, Decreased Breath Sounds Cardiovascular: Regular Rate, Rhythm, No Murmur Capillary Refill: Less Than 3 Seconds Peripheral Pulses: 3+ Radial Pulses (L) Gastrointestinal: non tender, soft Extremity: Normal Inspection, No Pedal Edema Neurologic/Psychiatric: Other (sedated) Results Lab Laboratory Tests 01/02/19 04:00 01/03/19 05:30 Assessment/Plan Assessment/Plan -Acute on chronic respiratory failure EF 60 65% -Pt is doing well off ventilator -Solumedrol 40 Q 6 -- -Pt needs home vent to mask upon discharge he is high risk for frequent readmissions and worsening respiratory failure. -Pt is from residential so will not be able to get home vent to mask -Will ask SW to see if we can get pt BiPAP for after discharge Pneumonia with severe sepsis with mucous plugging -Sputum growing Corynebacterium and enterobacter -Cefepime, and Vanco -S/p bronchoscopy -Duoneb Q4 with easy PAP -INflu neg Atelectasis -IS -Easy PAP with Q4 DuoNeb Mediastinal lymphadenopathy probably reactive however present and worse since r/o cancer -Will need to repeat CT scan 8 wks after discharge. COPDAE -SVNS -steroids Elevated troponin - probably secondary to hypoxia -Cardiology following -repeat troponin Tobacco use -Education KEYONA EVANS DO Jan 03, 2019 08:38
[2019-01-03] MEDS: PANTOPRAZOLE 40 MG (PROTONIX) VIAL IV SCH (08:52)
[2019-01-03] MEDS: ENOXAPARIN 40 MG/0.4 ML (LOVENOX) SYR SC SCH (08:53)
[2019-01-03] MEDS: ASPIRIN 81 MG CHEW (CHILDREN'S ASA) PO SCH (08:53)
[2019-01-03] MEDS: VANCOMYCIN 1 GM/NS 250 ML IVPB IV SCH ×4 (09:53→21:06)
--- NOTE | 2019-01-03 10:06 | Diagnostic Imaging Report ---
Indication: Dyspnea, followup pneumonia. Comparison: 01/02/2019. Discussion: Two views of the chest were obtained. The lungs remain hyperinflated. Stable mild cardiomegaly. Left upper extremity PICC line is stable. Consolidation is again noted within the right lung base, likely pneumonia. Atelectasis or mild pneumonia could also be present within the left lung base. No pleural fluid or pneumothorax. Impression: 1. Stable chest with suspected right lung pneumonia. Dictated by: Dictated on workstation # [id number]
--- NOTE | 2019-01-03 11:38 | Physical Therapy Daily Note ---
PT Daily Note-Current Subjective Pt up in chair and agreeable to ther ex in chair. Nurse aid present and says he just returned from x-ray and walked from end of bed to chair (approximately 6ft) with FWW. Pt declined walking with therapist due to "my air is low". Pt denied pain. Mental Status Patient Orientation: Person, Place Transfers Therapy Code Descriptions/Definitions Functional [place] Measure: 0=Not Assessed/NA 4=Minimal Assistance 1=Total Assistance 5=Supervision or Setup 2=Maximal Assistance 6=Modified [place] 3=Moderate Assistance 7=Complete [place] Therapy Quality Codes: 6 Independent with activity with or without an assistive device 5 Patient requires set up or clean up by helper. Patient completes activity by themselves 4 Supervision or touching assist (CGA). [place] provide cues , steadying assist 3 The helper provides less than half the effort to complete the activity 2 The helper provides more than half the effort to complete the activity 1 Dependent. The helper does all the effort to complete an activity 7 Patient refused to complete or attempt activity 9 The patient did not perform the activity before the current illness or injury 88 Not attempted due to Medical conditions or safety concerns SIt to stand required increased effort, vc's for hand placement. Weight Bearing Right Lower Extremity: Right Weight Bearing/Tolerated Left Lower Extremity: Left Weight Bearing/Tolerated Exercises Seated Therapy Exercises: Ankle pumps, Long arc quads, Hip flexion, Hip abd/add Seated Reps: [address] x 2-3 min with SBA. Assessment Current Status: Good Progress Pt progressing appropriately. Pt fatigued and SOB with exertion. Otherwise, brian well with rest breaks as needed. Pt O2 per nasal canula throughout treatment. Pt recined in chair with call light, ambu alarm activated and all needs met post therapy session. PT Director Investment [employer] Goals Fpc Goals PT Director Investment Banking Goals Time Frame: Jan 16, 2019 Transfers (B,C,W/C) (FIM): 4 Gait (FIM): 1 Gait distance (FIM): 1=up to 49 ft Distance: 10' Gait Level of Assist: 3 Gait Assistive Device: FWW PT Plan Treatment/Plan Treatment Plan: Continue Plan of Care Treatment Plan: Bed Mobility, Education, Functional Activity Gracy, Functional Strength, Group Therapy, Gait, Safety, Therapeutic Exercise, Transfers Treatment Duration: Jan 16, 2019 Frequency: 6 times per week Estimated Hrs Per Day: .25 hour per day Patient and/or Family Agrees t: Yes Time/GCodes Time In: 1015 Time Out: 1030 Total Billed Treatment Time: 15 Total Billed Treatment 1, ther ex 15min MANUEL WHITMAN CPTA Jan 03, 2019 11:38
[2019-01-03 12:00] VITALS: BP 132/82
--- NOTE | 2019-01-03 12:41 | Progress Note-Hospitalist ---
Subjective HPI/CC On Admission Date Seen by Provider: Jan 03, 2019 Time Seen by Provider: 12:00 CC: Severe sepsis HPI: This is a 58-year-old white male of Dr. Lacey who presented to the ER with confusion and hypotension requiring central line placement and ICU admission later requiring intubation. No other details are obtained from the patient due to intubation. Currently patient is on pressor therapy and to prevent and stable. Subjective/Events-last exam Extubated and stable HTN noted Restarted all meds from home Denies pain Has a lot of nausea at times so will slowly advance diet Catheter is in place Review of Systems General: Fatigue Focused Exam Time of Focused Exam: 1440 Objective Exam Vital Signs Vital Signs Date Time Temp Pulse Resp B/P (MAP) Pulse Ox O2 Delivery O2 Flow Rate FiO2 01/03/19 12:00 98.2 93 24 132/82 (99) 95 Nasal Cannula 5.00 01/02/19 11:20 96 Capillary Refill : Less Than 3 SecondsLess Than 3 Seconds General Appearance: No Apparent Distress, WD/WN, Chronically ill, Obese HEENT: Normal ENT Inspection Neck: Full Range of Motion, Normal Inspection Respiratory: No Accessory Muscle Use, No Respiratory Distress, Crackles, Decreased Breath Sounds Cardiovascular: Regular Rate, Rhythm, No Murmur Gastrointestinal: Normal Bowel Sounds, Non Tender, Soft Extremity: Normal Inspection, Pedal Edema Neurologic/Psychiatric: Alert, Oriented x3, No Motor/Sensory Deficits, Normal 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 Assessment/Plan Assessment and Plan Assess & Plan/Chief Complaint Assessment: Acute on chronic respiratory failure s/p extubation Pneumonia with severe sepsis with mucous plugging s/p bronch Atelectasis on CXR Mediastinal lymphadenopathy probably reactive AECOPD Elevated troponin Cardiology consulted Smoker ESBL status in isolation Plan: Abx steroids Monitor labs Diagnosis/Problems Diagnosis/Problems (1) Bilateral pneumonia Status: Acute Qualifiers: Pneumonia type: due to unspecified organism Lung location: lower lobe of lung Qualified Codes: J18.1 - Lobar pneumonia, unspecified organism (2) COPD exacerbation Status: Acute (3) Elevated troponin Status: Acute (4) Respiratory failure Status: Resolved Qualifiers: Chronicity: acute Respiratory failure complication: hypoxia and hypercapnia Qualified Codes: J96.01 - Acute respiratory failure with hypoxia; J96.02 - Acute respiratory failure with hypercapnia Resolution Date/Time: 01/03/19 @ 13:33 (5) Septic shock Status: Resolved Resolution Date/Time: 01/03/19 @ 13:33 Clinical Quality Measures DVT/VTE Risk/Contraindication: Risk Factor Score Per Nursin RFS Level Per Nursing on Admit: 4+=Very High CHRIS EMERSON DO Jan 03, 2019 12:41
[2019-01-03] MEDS ORDERED: ACETAMINOPHEN 325 MG TABLET PO PRN (13:15)
[2019-01-03] MEDS ORDERED: BENZONATATE 100 MG (TESSALON) CAPSULE PO PRN (13:45)
--- NOTE | 2019-01-03 14:11 | Cardiology Progress Note ---
Cardiology SOAP Progress Note Subjective: No cardiac symptoms. Objective: I&O/Vital Signs 01/03/19 01/03/19 01/03/19 01/03/19 04:00 06:53 08:00 09:15 Temp 99.4 97.5 Pulse 84 99 Resp 22 20 B/P (MAP) 178/85 (116) 174/93 (120) Pulse Ox 93 92 93 O2 Delivery Nasal Cannula Nasal Cannula Nasal Cannula High Flow N/C O2 Flow Rate 6.00 6.00 6.00 5.00 01/03/19 01/03/19 10:56 12:00 Temp 98.2 Pulse 93 Resp 24 B/P (MAP) 132/82 (99) Pulse Ox 94 95 O2 Delivery Nasal Cannula Nasal Cannula O2 Flow Rate 5.00 5.00 01/03/19 00:00 Intake Total 630 ml Output Total 1300 ml Balance -670 ml Weight (Pounds): 238 Weight (Ounces): 6.0 Weight (Calculated Kilograms): 108.939654 Constitutional: appears stated age Respiratory: No accessory muscle use, No respiratory distress, No chest tender , No chest expansion is symmetric; chest is bilaterally symmetric; No lungs clear to percussion; lungs clear to auscultation; No crackles, No rhonchi, No rales, No stridor, No wheezing, No pleural rub; other (fair air entry) Cardiovascular: regular rate-rhythm; No irregularly irregular, No extra beats, No parasternal heave is noted, No JVD, No edema, No bradycardia, No tachycardia , No point of maximal impulse, No cardiac thrills are palpable; S1 and S2; No gallop/S3, No gallop/S4, No diastolic murmur; systolic murmur (soft LEANN at card base); No friction rub, No click, No other Gastrointestional: No tender; soft; No round, No distended, No pulsatile mass, No organomegaly, No guarding, No rebound, No tenderness, No hernia, No mass; audible bowel sounds; No abnormal bowel sounds, No abdominal bruits, No spleenomegaly, No other Extremities: No normal range of motion, No non-tender, No normal inspection, No pedal edema, No calf tenderness, No normal capillary refill, No pelvis stable , No calf tenderness, No inflammation, No pedal edema, No slow capillary refill , No swelling, No other, No abrasion, No clubbing, No cyanosis, No ecchymosis, No laceration, No no lower extremity edema bilateral, No significant edema, No tenderness, No wound Neurologic/Psychiatric: other (not able to coperate with a neuro exam; on [facility] vent) Skin: normal color, warm/dry; No diaphoresis, No mottled Results/Procedures: Labs Laboratory Tests 01/02/19 16:19: Glucometer 129H 01/02/19 20:08: Glucometer 127H 01/03/19 05:30: White Blood Count 9.8, Red Blood Count 5.78, Hemoglobin 16.8, Hematocrit 50, Mean Corpuscular Volume 87, Mean Corpuscular Hemoglobin 29, Mean Corpuscular Hemoglobin Concent 34, Red Cell Distribution Width 16.7H, Platelet Count 73L, Mean Platelet Volume 11.6H, Neutrophils (%) (Auto) 84H, Lymphocytes (%) (Auto) 8L, Monocytes (%) (Auto) 8, Eosinophils (%) (Auto) 0, Basophils (%) (Auto) 0, Neutrophils # (Auto) 8.2H, Lymphocytes # (Auto) 0.7L, Monocytes # (Auto) 0.8, Eosinophils # (Auto) 0.0, Basophils # (Auto) 0.0, Sodium Level 136, Potassium Level 4.3, Chloride Level 94L, Carbon Dioxide Level 31, Anion Gap 11, Blood Urea Nitrogen 25H, Creatinine 0.72, Estimat Glomerular Filtration Rate > 60, BUN /Creatinine Ratio 35, Glucose Level 115H, Calcium Level 8.6, Phosphorus Level 3.2, Magnesium Level 2.5H 01/03/19 05:32: Glucometer 111H 01/03/19 11:39: Glucometer 119H Microbiology 12/27/18 Blood Culture - Final, Complete No growth 12/30/18 Mycobacterial Culture - Preliminary, Resulted 12/27/18 Urine Culture - Final, Complete NO GROWTH A/P: Assessment/Dx: Acute resp failure probably due to R-sided pneumonia Hypoxia due to ac resp failure Elevated troponin due to hypoxia (type 2 OR). No evidence of Type 1 OR Cardiac cath of May 2017: angiographically mild CAD. LVEF 55-60%. LVEDP at the top limit of normal. No significant MR Echo of 09/25/18: LVEF 60-65%, PASP 25 mmHg H/o gallstones. Abdominal u/s of May 2017: the gallbladder is most likely filled with calculi - being followed by Dr. Narayan No evidence of AAA on abd ao screening scan of 04/18/18 Seg pressures of 04/08/18 did not show evidence of significant obstructive PAD COPD Fam h/o early CAD (father to [place] in his early 50s) Chronic tobacco use Hypertension Bipolar disorder Chronic mild, intermittent leg swelling Chronic impaired (somewhat slurred) speech Carotid art dz: 50-60% R ICA and 60-79% L ICA stenoses on carotid u/s of Oct 2018 Plan: * Continue current therapy * Monitor and correct labs Thank you for your consultation. Please call me if you have any questions. Dudley Meza MD, FACP, FACC, FSCAI, FHRS, CCDS Interventional Cardiology Cardiac Electrophysiology Vascular Medicine and Endovascular Interventions Focused Exam Time of Focused Exam: 4110 Katherine MEZA MD Jan 03, 2019 2:11 pm
[2019-01-03] MEDS ORDERED: CARBAM PEROX/GLYC/PROP 15 ML DROPS (DEBROX) EACH EAR PRN (14:15)
[2019-01-03] MEDS ORDERED: ONDANSETRON 4 MG (ZOFRAN) ORAL DISSOLVE TAB PO PRN (14:30)
[2019-01-03] MEDS ORDERED: ARTIFICAL TEARS 0.4 ML UNIT DOSE (REFRESH PLUS) OU PRN (14:30)
[2019-01-03 16:00] VITALS: BP 166/89
[2019-01-03] MEDS: ADVAIR HFA 115/21 MCG INHALER 8 GM IH SCH (19:34)
[2019-01-03 20:00] VITALS: BP 169/93
[2019-01-03] MEDS ORDERED: RT-ADVAIR HFA 115/21 MCG PER PUFF IH SCH (20:00)
[2019-01-03] MEDS: lisINopril 5 MG (PRINIVIL) TABLET PO SCH (21:05)
[2019-01-03] MEDS: meTOprolol TARTRATE 25 MG (LOPRESSOR) TABLET PO SCH (21:05)
[2019-01-03] MEDS: clonazePAM 0.5 MG (KlonoPIN) TAB PO SCH (21:05)
[2019-01-03] MEDS: DIVALPROX SPRINKLE 125 MG (DEPAKOTE) CAP PO SCH (21:05)
[2019-01-04] VITALS: BP 164/88
[2019-01-04] MEDS ORDERED: CEFEPIME 1 GM (MAXIPIME) VIAL ONE ×2 (03:24→23:06)
[2019-01-04] MEDS ORDERED: WATER (STERILE) FOR INJECTION 10 ML ONE ×2 (03:24→23:06)
[2019-01-04] MEDS: methylPREDNISolone 40 MG/ML (Solu-MEDROL) VIAL IV SCH ×4 (04:58→23:17)
[2019-01-04] MEDS: CEFEPIME INJECTION 1,000 MG in WATER (STERILE) FOR INJECTION 10 ML IV SCH ×4 (04:58→23:17)
[2019-01-04 06:02] LABS: BASOPHILS % (AUTO) 0 % (0-10); EOSINOPHILS % (AUTO) 0 % (0-10); HEMATOCRIT 51 % (40-54); LYMPHOCYTES % (AUTO) 10 % (12-44); MEAN CORPUSCULAR HEMOGLOBIN 29 PG (25-34); MEAN CORPUSCULAR HGB CONC 34 G/DL (32-36); MEAN CORPUSCULAR VOLUME 85 FL (80-99); MEAN PLATELET VOLUME 11.7 FL (7.4-10.4); MONOCYTES % (AUTO) 9 % (0-12); NEUTROPHILS % (AUTO) 82 % (42-75); PLATELET COUNT 99 10^3/uL (130-400); RED CELL DISTRIBUTION WIDTH 16.4 % (10.0-14.5); WHITE BLOOD COUNT 9.8 10^3/uL (4.3-11.0)
[2019-01-04 06:03] LABS: LYMPHOCYTES # (AUTO) 0.9 X 10^3 (1.0-4.0); MONOCYTES # (AUTO) 0.8 X 10^3 (0.0-1.0)
[2019-01-04 06:18] LABS: BUN/CREATININE RATIO 34; CALCIUM 8.7 MG/DL (8.5-10.1); CARBON DIOXIDE 29 MMOL/L (21-32); CHLORIDE 96 MMOL/L (98-107); CREATININE SERUM 0.73 MG/DL (0.60-1.30); GFR ESTIMATED > 60; GLUCOSE 125 MG/DL (70-105); MAGNESIUM 2.4 MG/DL (1.8-2.4); PHOSPHORUS 3.4 MG/DL (2.3-4.7); POTASSIUM 4.2 MMOL/L (3.6-5.0); SODIUM 135 MMOL/L (135-145)
[2019-01-04] MEDS: RT-ALBUTEROL/IPRATROPIUM 3 ML (DUONEB) VIAL INH SCH ×4 (07:30→19:13)
[2019-01-04] MEDS: ADVAIR HFA 115/21 MCG INHALER 8 GM IH SCH ×2 (07:31→19:13)
[2019-01-04 08:00] VITALS: BP 145/81
[2019-01-04] MEDS: ENOXAPARIN 40 MG/0.4 ML (LOVENOX) SYR SC SCH (08:54)
[2019-01-04] MEDS: PANTOPRAZOLE 40 MG (PROTONIX) TAB PO SCH (08:55)
[2019-01-04] MEDS: FUROSEMIDE 20 MG (LASIX) TAB PO SCH (08:55)
[2019-01-04] MEDS: MULTIVIT W/MINERALS TAB (THERAGRAN M) PO SCH (08:55)
[2019-01-04] MEDS: meTOprolol TARTRATE 25 MG (LOPRESSOR) TABLET PO SCH ×2 (08:55→20:25)
[2019-01-04] MEDS: DIVALPROX SPRINKLE 125 MG (DEPAKOTE) CAP PO SCH ×3 (08:55→20:25)
[2019-01-04] MEDS: clonazePAM 0.5 MG (KlonoPIN) TAB PO SCH ×2 (08:55→20:25)
[2019-01-04] MEDS: ASPIRIN E.C. 81 MG (ECOTRIN) TAB PO SCH (08:56)
--- NOTE | 2019-01-04 11:38 | Cardiology Progress Note ---
Cardiology SOAP Progress Note Subjective: No cardiac complaints Objective: I&O/Vital Signs 01/04/19 01/04/19 01/04/19 01/04/19 00:00 07:31 07:39 08:00 Temp 98.5 98.4 Pulse 77 94 Resp 20 20 B/P (MAP) 164/88 (113) 145/81 (102) Pulse Ox 93 92 O2 Delivery Nasal Cannula High Flow N/C High Flow N/C Nasal Cannula O2 Flow Rate 5.00 5.00 5.00 5.00 01/04/19 11:14 Pulse Ox 94 O2 Delivery High Flow N/C O2 Flow Rate 5.00 01/04/19 00:00 Intake Total 1687 ml Output Total 1900 ml Balance -213 ml Weight (Pounds): 213 Weight (Ounces): 5.0 Weight (Calculated Kilograms): 96.926591 Constitutional: appears stated age Respiratory: No accessory muscle use, No respiratory distress, No chest tender , No chest expansion is symmetric; chest is bilaterally symmetric; No lungs clear to percussion; lungs clear to auscultation; No crackles, No rhonchi, No rales, No stridor, No wheezing, No pleural rub; other (fair air entry) Cardiovascular: regular rate-rhythm; No irregularly irregular, No extra beats, No parasternal heave is noted, No JVD, No edema, No bradycardia, No tachycardia , No point of maximal impulse, No cardiac thrills are palpable; S1 and S2; No gallop/S3, No gallop/S4, No diastolic murmur; systolic murmur (soft LEANN at card base); No friction rub, No click, No other Gastrointestional: No tender; soft; No round, No distended, No pulsatile mass, No organomegaly, No guarding, No rebound, No tenderness, No hernia, No mass; audible bowel sounds; No abnormal bowel sounds, No abdominal bruits, No spleenomegaly, No other Extremities: No normal range of motion, No non-tender, No normal inspection, No pedal edema, No calf tenderness, No normal capillary refill, No pelvis stable , No calf tenderness, No inflammation, No pedal edema, No slow capillary refill , No swelling, No other, No abrasion, No clubbing, No cyanosis, No ecchymosis, No laceration, No no lower extremity edema bilateral, No significant edema, No tenderness, No wound Neurologic/Psychiatric: other (not able to coperate with a neuro exam; on [facility] vent) Skin: normal color, warm/dry; No diaphoresis, No mottled Results/Procedures: Labs Laboratory Tests 01/03/19 11:39: Glucometer 119H 01/03/19 16:07: Glucometer 139H 01/04/19 05:55: White Blood Count 9.8, Red Blood Count 5.94H, Hemoglobin 17.0, Hematocrit 51, Mean Corpuscular Volume 85, Mean Corpuscular Hemoglobin 29, Mean Corpuscular Hemoglobin Concent 34, Red Cell Distribution Width 16.4H, Platelet Count 99L, Mean Platelet Volume 11.7H, Neutrophils (%) (Auto) 82H, Lymphocytes (%) (Auto) 10L, Monocytes (%) (Auto) 9, Eosinophils (%) (Auto) 0, Basophils (%) (Auto) 0, Neutrophils # (Auto) 8.0H, Lymphocytes # (Auto) 0.9L, Monocytes # (Auto) 0.8, Eosinophils # (Auto) 0.0, Basophils # (Auto) 0.0, Sodium Level 135, Potassium Level 4.2, Chloride Level 96L, Carbon Dioxide Level 29, Anion Gap 10, Blood Urea Nitrogen 25H, Creatinine 0.73, Estimat Glomerular Filtration Rate > 60, BUN /Creatinine Ratio 34, Glucose Level 125H, Calcium Level 8.7, Phosphorus Level 3.4, Magnesium Level 2.4 Microbiology 12/27/18 Blood Culture - Final, Complete No growth 12/30/18 Mycobacterial Culture - Preliminary, Resulted 12/27/18 Urine Culture - Final, Complete NO GROWTH A/P: Assessment/Dx: Acute resp failure probably due to R-sided pneumonia, improved significantly Hypoxia due to ac resp failure Elevated troponin due to hypoxia (type 2 MT). No evidence of Type 1 MT Cardiac cath of May 2017: angiographically mild CAD. LVEF 55-60%. LVEDP at the top limit of normal. No significant MR Echo of 09/25/18: LVEF 60-65%, PASP 25 mmHg H/o gallstones. Abdominal u/s of May 2017: the gallbladder is most likely filled with calculi - being followed by Dr. Siedl No evidence of AAA on abd ao screening scan of 04/18/18 Seg pressures of 04/08/18 did not show evidence of significant obstructive PAD COPD Fam h/o early CAD (father to [place] in his early 50s) Chronic tobacco use Hypertension Bipolar disorder Chronic mild, intermittent leg swelling Chronic impaired (somewhat slurred) speech Carotid art dz: 50-60% R ICA and 60-79% L ICA stenoses on carotid u/s of Oct 2018 Plan: * Continue current therapy * Monitor and correct labs Thank you for your consultation. Please call me if you have any questions. Dudley Cintron MD, FACP, FACC, FSCAI, FHRS, CCDS Interventional Cardiology Cardiac Electrophysiology Vascular Medicine and Endovascular Interventions Focused Exam Time of Focused Exam: 1440 Katherine CINTRON MD Jan 04, 2019 11:38 am
--- NOTE | 2019-01-04 12:42 | Progress Note-Hospitalist ---
Subjective HPI/CC On Admission Date Seen by Provider: Jan 04, 2019 Time Seen by Provider: 11:30 CC: Severe sepsis HPI: This is a 58-year-old white male of Dr. Lacey who presented to the ER with confusion and hypotension requiring central line placement and ICU admission later requiring intubation. No other details are obtained from the patient due to intubation. Currently patient is on pressor therapy and to prevent and stable. Subjective/Events-last exam No major changes Patient in bed Difficult to understand speech No pain is reported Restarted home meds Cath maintained Review of Systems General: Fatigue Focused Exam Time of Focused Exam: 1440 Objective Exam Vital Signs Vital Signs Date Time Temp Pulse Resp B/P (MAP) Pulse Ox O2 Delivery O2 Flow Rate FiO2 01/04/19 11:14 94 High Flow N/C 5.00 01/04/19 08:00 98.4 94 20 145/81 (102) 01/02/19 11:20 96 Capillary Refill : Less Than 3 SecondsLess Than 3 Seconds General Appearance: No Apparent Distress, WD/WN, Chronically ill, Obese HEENT: Normal ENT Inspection Neck: Full Range of Motion, Normal Inspection Respiratory: No Accessory Muscle Use, No Respiratory Distress, Crackles, Decreased Breath Sounds Cardiovascular: Regular Rate, Rhythm, No Murmur Gastrointestinal: Normal Bowel Sounds, Non Tender, Soft Extremity: Normal Inspection, Pedal Edema Neurologic/Psychiatric: Alert, Oriented x3, No Motor/Sensory Deficits, Normal Mood/Affect, fly winder II-XII Norm as Tested, Other (sedated) Results/Procedures Lab Laboratory Tests 01/04/19 05:55 Patient resulted labs reviewed. Assessment/Plan Assessment and Plan Assess & Plan/Chief Complaint Assessment: Acute on chronic respiratory failure s/p extubation Pneumonia with severe sepsis with mucous plugging s/p bronch Atelectasis on CXR Mediastinal lymphadenopathy probably reactive AECOPD Elevated troponin Cardiology consulted Smoker ESBL status in isolation Plan: Abx steroids Monitor labs Diagnosis/Problems Diagnosis/Problems (1) Bilateral pneumonia Status: Acute Qualifiers: Pneumonia type: due to unspecified organism Lung location: lower lobe of lung Qualified Codes: J18.1 - Lobar pneumonia, unspecified organism (2) COPD exacerbation Status: Acute (3) Elevated troponin Status: Acute (4) Respiratory failure Status: Resolved Qualifiers: Chronicity: acute Respiratory failure complication: hypoxia and hypercapnia Qualified Codes: J96.01 - Acute respiratory failure with hypoxia; J96.02 - Acute respiratory failure with hypercapnia Resolution Date/Time: 01/03/19 @ 13:33 (5) Septic shock Status: Resolved Resolution Date/Time: 01/03/19 @ 13:33 Clinical Quality Measures DVT/VTE Risk/Contraindication: Risk Factor Score Per Nursin RFS Level Per Nursing on Admit: 4+=Very High CHRIS EMERSON DO Jan 04, 2019 12:42
--- NOTE | 2019-01-04 14:36 | Pulmonary Progress Note ---
Subjective Time Seen by a Provider: 15:01 Subjective/Events-last exam Persistent SOB however appears to be improving. Sepsis Event Evaluation Height, Weight, BMI Height: 5'7.00" Weight: 213lbs. 5.0oz. 96.956189lz; 34.8 BMI Method:Stated Focused Exam Time of Focused Exam: 1440 Exam Exam Vital Signs Date Time Temp Pulse Resp B/P (MAP) Pulse Ox O2 Delivery O2 Flow Rate FiO2 01/04/19 11:14 94 High Flow N/C 5.00 01/04/19 09:00 High Flow N/C 5.00 01/04/19 08:00 98.4 94 20 145/81 (102) 92 Nasal Cannula 5.00 01/04/19 07:39 High Flow N/C 5.00 01/04/19 07:31 93 High Flow N/C 5.00 01/04/19 00:00 98.5 77 20 164/88 (113) Nasal Cannula 5.00 01/03/19 21:00 High Flow N/C 5.00 01/03/19 20:00 98.8 90 20 169/93 (118) 95 Nasal Cannula 5.00 01/03/19 19:37 93 High Flow N/C 5.00 01/03/19 19:35 High Flow N/C 5.00 01/03/19 16:00 98.6 87 20 166/89 (114) 95 Nasal Cannula 4.50 01/03/19 15:07 95 Nasal Cannula 5.00 I & O 01/04/19 07:00 Intake Total 2687 ml Output Total 4600 ml Balance -1913 ml Height & Weight Height: 5'7.00" Weight: 213lbs. 5.0oz. 96.876559yv; 34.8 BMI Method:Stated General Appearance: No Apparent Distress, WD/WN, Chronically ill, Obese HEENT: Normal ENT Inspection Neck: Full Range of Motion, Normal Inspection Respiratory: No Accessory Muscle Use, No Respiratory Distress, Crackles, Decreased Breath Sounds Cardiovascular: Regular Rate, Rhythm, No Murmur Capillary Refill: Less Than 3 Seconds Peripheral Pulses: 3+ Radial Pulses (L) Gastrointestinal: non tender, soft Extremity: Normal Inspection, Pedal Edema Neurologic/Psychiatric: Alert, Oriented x3, No Motor/Sensory Deficits, Normal Mood/Affect, branch manager II-XII Norm as Tested, Other (sedated) Results Lab Laboratory Tests 01/03/19 05:30 01/04/19 05:55 Assessment/Plan Assessment/Plan -Acute on chronic respiratory failure EF 60 65% -Solumedrol 40 Q 6 -- -Pt needs home vent to mask upon discharge he is high risk for frequent readmissions and worsening respiratory failure. -[facility] so will not be able to get home vent to mask -Will ask SW to see if we can get pt BiPAP for after discharge Pneumonia with severe sepsis with mucous plugging -Sputum growing Corynebacterium and enterobacter -Cefepime, and Vanco -S/p bronchoscopy -Duoneb Q4 with easy PAP -INflu neg Atelectasis -IS -Easy PAP with Q4 DuoNeb Mediastinal lymphadenopathy probably reactive however present and worse since r/o cancer -Will need to repeat CT scan 8 wks after discharge. COPDAE -SVNS -steroids Elevated troponin - probably secondary to hypoxia -Cardiology following -repeat troponin Tobacco use -Education KEYONA EVANS DO Jan 04, 2019 14:36
[2019-01-04 15:58] VITALS: BP 131/80
[2019-01-04] MEDS: lisINopril 5 MG (PRINIVIL) TABLET PO SCH (20:25)
[2019-01-05] VITALS: BP 138/79
[2019-01-05] MEDS ORDERED: WATER (STERILE) FOR INJECTION 10 ML ONE (04:49)
[2019-01-05] MEDS ORDERED: CEFEPIME 1 GM (MAXIPIME) VIAL ONE (04:49)
[2019-01-05] MEDS: methylPREDNISolone 40 MG/ML (Solu-MEDROL) VIAL IV SCH ×2 (05:10→11:51)
[2019-01-05] MEDS: CEFEPIME INJECTION 1,000 MG in WATER (STERILE) FOR INJECTION 10 ML IV SCH ×4 (05:10→20:45)
[2019-01-05 05:17] LABS: BASOPHILS % (AUTO) 0 % (0-10); EOSINOPHILS % (AUTO) 0 % (0-10); HEMATOCRIT 48 % (40-54); HEMOGLOBIN 16.1 G/DL (13.3-17.7); LYMPHOCYTES % (AUTO) 10 % (12-44); MEAN CORPUSCULAR HEMOGLOBIN 29 PG (25-34); MEAN CORPUSCULAR HGB CONC 34 G/DL (32-36); MEAN CORPUSCULAR VOLUME 86 FL (80-99); MEAN PLATELET VOLUME 11.8 FL (7.4-10.4); MONOCYTES # (AUTO) 0.6 X 10^3 (0.0-1.0); MONOCYTES % (AUTO) 6 % (0-12); NEUTROPHILS # (AUTO) 8.3 X 10^3 (1.8-7.8); NEUTROPHILS % (AUTO) 84 % (42-75); PLATELET COUNT 113 10^3/uL (130-400); RED CELL DISTRIBUTION WIDTH 16.5 % (10.0-14.5); WHITE BLOOD COUNT 9.8 10^3/uL (4.3-11.0)
[2019-01-05 05:36] LABS: BUN/CREATININE RATIO 40; CALCIUM 8.5 MG/DL (8.5-10.1); CARBON DIOXIDE 28 MMOL/L (21-32); CHLORIDE 98 MMOL/L (98-107); CREATININE SERUM 0.68 MG/DL (0.60-1.30); GFR ESTIMATED > 60; GLUCOSE 109 MG/DL (70-105); MAGNESIUM 2.7 MG/DL (1.8-2.4); PHOSPHORUS 3.5 MG/DL (2.3-4.7); POTASSIUM 4.4 MMOL/L (3.6-5.0); SODIUM 136 MMOL/L (135-145)
[2019-01-05] MEDS: RT-ALBUTEROL/IPRATROPIUM 3 ML (DUONEB) VIAL INH SCH ×4 (06:29→18:44)
[2019-01-05] MEDS: ADVAIR HFA 115/21 MCG INHALER 8 GM IH SCH ×2 (06:37→18:44)
[2019-01-05 08:00] VITALS: BP 133/66
--- NOTE | 2019-01-05 08:16 | Progress Note (SOAP) ---
Subjective Time Seen by a Provider: 08:12 Subjective/Events-last exam Patient states she's feeling better and doing better. Patient on oxygen as is at the [facility] Focused Exam Time of Focused Exam: 1440 Objective Exam Vital Signs Date Time Temp Pulse Resp B/P (MAP) Pulse Ox O2 Delivery O2 Flow Rate FiO2 01/05/19 06:37 95 High Flow N/C 5.00 01/05/19 06:29 95 High Flow N/C 5.00 01/05/19 00:00 98.1 73 18 138/79 (98) 94 High Flow N/C 5.00 01/04/19 21:00 High Flow N/C 5.00 01/04/19 19:13 High Flow N/C 5.00 01/04/19 19:13 93 High Flow N/C 5.00 01/04/19 15:58 97.4 76 20 131/80 (97) 95 Nasal Cannula 5.00 01/04/19 14:54 95 High Flow N/C 5.00 01/04/19 11:14 94 High Flow N/C 5.00 01/04/19 09:00 High Flow N/C 5.00 I & O 01/05/19 07:00 Intake Total 2020 ml Output Total 4300 ml Balance -2280 ml Capillary Refill : Less Than 3 SecondsLess Than 3 Seconds General Appearance: No Apparent Distress, WD/WN HEENT: Normal ENT Inspection Neck: Full Range of Motion, Normal Inspection Respiratory: No Accessory Muscle Use, No Respiratory Distress, Decreased Breath Sounds Cardiovascular: Regular Rate, Rhythm, No Murmur Gastrointestinal: non tender, soft Results Lab Laboratory Tests 01/05/19 05:08 Laboratory Tests 01/05/19 05:08: White Blood Count 9.8, Red Blood Count 5.59, Hemoglobin 16.1, Hematocrit 48, Mean Corpuscular Volume 86, Mean Corpuscular Hemoglobin 29, Mean Corpuscular Hemoglobin Concent 34, Red Cell Distribution Width 16.5H, Platelet Count 113L, Mean Platelet Volume 11.8H, Neutrophils (%) (Auto) 84H, Lymphocytes (%) (Auto) 10L, Monocytes (%) (Auto) 6, Eosinophils (%) (Auto) 0, Basophils (%) (Auto) 0, Neutrophils # (Auto) 8.3H, Lymphocytes # (Auto) 1.0, Monocytes # (Auto) 0.6, Eosinophils # (Auto) 0.0, Basophils # (Auto) 0.0, Sodium Level 136, Potassium Level 4.4, Chloride Level 98, Carbon Dioxide Level 28, Anion Gap 10, Blood Urea Nitrogen 27H, Creatinine 0.68, Estimat Glomerular Filtration Rate > 60, BUN/ Creatinine Ratio 40, Glucose Level 109H, Calcium Level 8.5, Phosphorus Level 3.5 , Magnesium Level 2.7H Microbiology 12/27/18 Blood Culture - Final, Complete No growth 12/30/18 Mycobacterial Culture - Preliminary, Resulted 12/27/18 Urine Culture - Final, Complete NO GROWTH Assessment/Plan Assessment/Plan Assess & Plan/Chief Complaint Acute respiratory failure. Febrile. COPD. Elevated troponin. Hypotension. Sepsis. Hypoxia. COPD. Gallstones. Thrombocytopenia. . 12/30/18. Acute respiratory failure. Febrile. COPD. Hypotension resolved. Sepsis. Gallstones. Thrombocytopenia stabilized. Patient had a bronchoscopy this a.m. . 12/31/18. Acute respiratory failure. Hypoxia. Pneumonia. Sepsis. Elevated troponin. Thrombocytopenia. Hypotension. Tobacco usage. . 01/01/19 area Acute respiratory failure. Hypoxia. Pneumonia. Sepsis. Elevated troponin. Thrombocytopenia. Hypotension with now hypertension. Tobacco usage. . . 01/01/19. Acute respiratory failure. Hypoxia. Pneumonia. Sepsis. Elevated troponin area Thrombocytopenia. Hypertension with now hypertension. Tobacco usage. . 01/02/19 acute respiratory failure resolved. Hypoxia resolved. Pneumonia improving. Sepsis. Elevated troponin. Thrombocytopenia getting worse area Tobacco usage. Patient going to medical floor today. . 01/05/19. Acute respiratory failure resolved. Pneumonia. Sepsis. Elevated troponin. Thrombocytopenia starting to go up a little. Patient improving Clinical Quality Measures DVT/VTE Risk/Contraindication: Risk Factor Score Per Nursin RFS Level Per Nursing on Admit: 4+=Very High ART CASANOVA DO Jan 05, 2019 08:16
--- NOTE | 2019-01-05 09:17 | Diagnostic Imaging Report ---
INDICATION: Pneumonia and septic shock. Time of exam: 8:58 AM Comparison is made with prior chest radiograph from 01/03/2019. The heart size is stable. Left sided line has tip overlying the SVC right atrial junction. There has been partial clearing of right basilar infiltrate since exam 2 days earlier. Left lung is clear. No significant effusion is seen. No pneumothorax is seen. IMPRESSION: Partial clearing of right basilar infiltrate when compared with examination 2 days earlier. Dictated by: Dictated on workstation # [id number]
[2019-01-05] MEDS: DIVALPROX SPRINKLE 125 MG (DEPAKOTE) CAP PO SCH ×3 (09:23→20:37)
[2019-01-05] MEDS: PANTOPRAZOLE 40 MG (PROTONIX) TAB PO SCH (09:23)
[2019-01-05] MEDS: FUROSEMIDE 20 MG (LASIX) TAB PO SCH (09:23)
[2019-01-05] MEDS: ASPIRIN E.C. 81 MG (ECOTRIN) TAB PO SCH (09:23)
[2019-01-05] MEDS: clonazePAM 0.5 MG (KlonoPIN) TAB PO SCH ×2 (09:23→20:36)
[2019-01-05] MEDS: MULTIVIT W/MINERALS TAB (THERAGRAN M) PO SCH (09:23)
[2019-01-05] MEDS: meTOprolol TARTRATE 25 MG (LOPRESSOR) TABLET PO SCH ×2 (09:23→20:36)
[2019-01-05] MEDS: ENOXAPARIN 40 MG/0.4 ML (LOVENOX) SYR SC SCH (09:24)
--- NOTE | 2019-01-05 10:32 | Physical Therapy Daily Note ---
PT Daily Note-Current Subjective Pt agreeable to PT session this am. Difficult to understand at times due to mumbling and slurring speech Pain Comment: C/O pain in LB and legs, unable to rate Appearance Upon arrival, pt supine in bed with cell phone in hand, awake and alert At end of session, pt sitting up in recliner with LE's elevated, chair alarm activated, call light, phone and bedside table within reach Mental Status Patient Orientation: Eyes Open, Mumbles Attachments: Central Line, Saline Lock, Oxygen, Aguilar Catheter Transfers Therapy Code Descriptions/Definitions Functional Gibson Measure: 0=Not Assessed/NA 4=Minimal Assistance 1=Total Assistance 5=Supervision or Setup 2=Maximal Assistance 6=Modified [place] 3=Moderate Assistance 7=Complete Gibson Therapy Quality Codes: 6 Independent with activity with or without an assistive device 5 Patient requires set up or clean up by helper. Patient completes activity by themselves 4 Supervision or touching assist (CGA). [place] provide cues , steadying assist 3 The helper provides less than half the effort to complete the activity 2 The helper provides more than half the effort to complete the activity 1 Dependent. The helper does all the effort to complete an activity 7 Patient refused to complete or attempt activity 9 The patient did not perform the activity before the current illness or injury 88 Not attempted due to Medical conditions or safety concerns Transfers (B, C, W/C) (FIM): 4 Scootin Rollin Supine to/from Sit: 4 Sit to/from Stand: 4 Bed to/from Chair: 4 Pt slow at performing transitions, unsteadiness, fatigue, SOA. Decreased safety awareness sapphire with stand to sit, able to perform safely with instruction and min tactile cueing Weight Bearing Right Lower Extremity: Right Weight Bearing/Tolerated Left Lower Extremity: Left Weight Bearing/Tolerated Gait Training Gait (FIM): 4 Distance (FIM): 1=up to 49 ft Distance: 20 Gait Level of Assist: 4 Gait Persons Needed: 1 Gait Assistive Device: FWW slow and unsteady, requiring assist to maneuver walker safely Exercises Seated Therapy Exercises: Ankle pumps (x20), Sit to stand (2x5), Long arc quads (20), Hip flexion Treatments Gait and transfer training, bed mobility, ther ex Assessment Pt unsteady with transfers and gait with FWW, Assist required to maneuver walker safely, Unsafe stand to sit transitions without instruction PT Research Agricultural Engineer Goals Research Agricultural Engineer Goals PT Research Agricultural Engineer Goals Time Frame: Jan 16, 2019 Transfers (B,C,W/C) (FIM): 4 Gait (FIM): 1 Gait distance (FIM): 1=up to 49 ft Distance: 10' Gait Level of Assist: 3 Gait Assistive Device: FWW PT Plan Treatment/Plan Treatment Plan: Continue Plan of Care Treatment Plan: Bed Mobility, Education, Functional Activity Gracy, Functional Strength, Group Therapy, Gait, Safety, Therapeutic Exercise, Transfers Treatment Duration: Jan 16, 2019 Frequency: 6 times per week Estimated Hrs Per Day: .25 hour per day Patient and/or Family Agrees t: Yes Safety Risks/Education Patient Education: Gait Training, Transfer Techniques, Safety Issues Teaching Recipient: Patient Teaching Methods: Demonstration, Discussion Response to Teaching: Return Demonstration, Reinforcement Needed Time/GCodes Time In: 1000 Time Out: 1023 Total Billed Treatment Time: 23 Total Billed Treatment 1 visit, FA x1 unit, EX x 1 unit CLARIBEL RUSSELL PTA Jan 05, 2019 10:31
--- NOTE | 2019-01-05 10:43 | Cardiology Progress Note ---
Cardiology SOAP Progress Note Subjective: No cardiac complaints. Objective: I&O/Vital Signs 01/05/19 01/05/19 01/05/19 00:00 06:29 06:37 Temp 98.1 Pulse 73 Resp 18 B/P (MAP) 138/79 (98) Pulse Ox 94 95 95 O2 Delivery High Flow N/C High Flow N/C High Flow N/C O2 Flow Rate 5.00 5.00 5.00 01/05/19 00:00 Intake Total 1010 ml Output Total 2950 ml Balance -1940 ml Weight (Pounds): 213 Weight (Ounces): 5.0 Weight (Calculated Kilograms): 96.885292 Constitutional: appears stated age Respiratory: No accessory muscle use, No respiratory distress, No chest tender , No chest expansion is symmetric; chest is bilaterally symmetric; No lungs clear to percussion; lungs clear to auscultation; No crackles, No rhonchi, No rales, No stridor, No wheezing, No pleural rub; other (fair air entry) Cardiovascular: regular rate-rhythm; No irregularly irregular, No extra beats, No parasternal heave is noted, No JVD, No edema, No bradycardia, No tachycardia , No point of maximal impulse, No cardiac thrills are palpable; S1 and S2; No gallop/S3, No gallop/S4, No diastolic murmur; systolic murmur (soft LEANN at card base); No friction rub, No click, No other Gastrointestional: No tender; soft; No round, No distended, No pulsatile mass, No organomegaly, No guarding, No rebound, No tenderness, No hernia, No mass; audible bowel sounds; No abnormal bowel sounds, No abdominal bruits, No spleenomegaly, No other Extremities: No normal range of motion, No non-tender, No normal inspection, No pedal edema, No calf tenderness, No normal capillary refill, No pelvis stable , No calf tenderness, No inflammation, No pedal edema, No slow capillary refill , No swelling, No other, No abrasion, No clubbing, No cyanosis, No ecchymosis, No laceration, No no lower extremity edema bilateral, No significant edema, No tenderness, No wound Neurologic/Psychiatric: other (not able to coperate with a neuro exam; on mech vent) Skin: normal color, warm/dry; No diaphoresis, No mottled Results/Procedures: Labs Laboratory Tests 01/05/19 05:08: White Blood Count 9.8, Red Blood Count 5.59, Hemoglobin 16.1, Hematocrit 48, Mean Corpuscular Volume 86, Mean Corpuscular Hemoglobin 29, Mean Corpuscular Hemoglobin Concent 34, Red Cell Distribution Width 16.5H, Platelet Count 113L, Mean Platelet Volume 11.8H, Neutrophils (%) (Auto) 84H, Lymphocytes (%) (Auto) 10L, Monocytes (%) (Auto) 6, Eosinophils (%) (Auto) 0, Basophils (%) (Auto) 0, Neutrophils # (Auto) 8.3H, Lymphocytes # (Auto) 1.0, Monocytes # (Auto) 0.6, Eosinophils # (Auto) 0.0, Basophils # (Auto) 0.0, Sodium Level 136, Potassium Level 4.4, Chloride Level 98, Carbon Dioxide Level 28, Anion Gap 10, Blood Urea Nitrogen 27H, Creatinine 0.68, Estimat Glomerular Filtration Rate > 60, BUN/ Creatinine Ratio 40, Glucose Level 109H, Calcium Level 8.5, Phosphorus Level 3.5 , Magnesium Level 2.7H Microbiology 12/27/18 Blood Culture - Final, Complete No growth 12/30/18 Mycobacterial Culture - Preliminary, Resulted 12/27/18 Urine Culture - Final, Complete NO GROWTH A/P: Assessment/Dx: Acute resp failure probably due to R-sided pneumonia, improved significantly Hypoxia due to ac resp failure Elevated troponin due to hypoxia (type 2 MT). No evidence of Type 1 MT Cardiac cath of May 2017: angiographically mild CAD. LVEF 55-60%. LVEDP at the top limit of normal. No significant MR Echo of 09/25/18: LVEF 60-65%, PASP 25 mmHg H/o gallstones. Abdominal u/s of May 2017: the gallbladder is most likely filled with calculi - being followed by Dr. 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 Thank you for your consultation. Please call me if you have any questions. Dudley Meza MD, FACP, FACC, FSCAI, FHRS, CCDS Interventional Cardiology Cardiac Electrophysiology Vascular Medicine and Endovascular Interventions Focused Exam Time of Focused Exam: 1440 Katherine MEZA MD Jan 05, 2019 10:43 am
--- NOTE | 2019-01-05 13:48 | Occupational Ther Daily Note ---
OT Current Status-Daily Note Subjective Pt alert, sitting in recliner. Pt agrees to therapy. Pt mumbles and is difficult to understand. Mental Status/Objective Patient Orientation: Person, Mumbles Therapy Code Descriptions/Definitions Functional Isabella Measure: 0=Not Assessed/NA 4=Minimal Assistance 1=Total Assistance 5=Supervision or Setup 2=Maximal Assistance 6=Modified Isabella 3=Moderate Assistance 7=Complete Isabella Attachments: Aguilar Catheter ADL-Treatment Grooming (FIM): 5 (After set up, pt able to complete grooming sitting in recliner. Using oral swab with toothpaste pt brushes mouth lightly. Pt able to bring H2O to mouth and rinse then spit when jean is brought to pt's mouth. Verbal cues for pt to wipe mouth, face and hands.) Other Treatment Set up for lunch then pt uses regular utensils to eat with. Pt leaning toward R side, verbal cues to return to midline. Pt reclined to eat, did not attempt to sit upright to eat. Pt completed 2 sets of 2 exercises with verbal and physical cues. Pt has light grasp to hold onto light resistance theraband, loops in end of theraband. Pt completes exercises with quick short movements, assist to count reps and verbal cues to stop. After two exercises, pt lets theraband drop from hands and shakes head no. After therapy, pt sitting in recliner with call light/phone in reach. Safety measures in place. All needs met in room. OT Short Term Goals Short Term Goals 1=Demonstrate adherence to instructed precautions during ADL tasks. 2=Patient will verbalize/demonstrate understanding of assistive devices/ modifications for ADL. 3=Patient will improve strength/tolerance for activity to enable patient to perform ADL's. OT Wire Strander Goals Wire Strander Goals Time Frame: Jan 16, 2019 Eating (FIM): 5 Grooming(FIM): 5 Upper Body Dressing(FIM): 5 Lower Body Dressing(FIM): 4 Toileting(FIM): 4 Toilet/Commode Transfer(FIM): 4 Additional Goals: 1-Demonstrate ADL Tasks, 2-Verbalize Understanding, 3- ImproveStrength/Gracy 1=Demonstrate adherence to instructed precautions during ADL tasks. 2=Patient will verbalize/demonstrate understanding of assistive devices/ modifications for ADL. 3=Patient will improve strength/tolerance for activity to enable patient to perform ADL's. OT Education/Plan Problem List/Assessment Pt to benefit from skilled OT intervention for ADL training, transfers, and strengthening to maximize level of independence and allow safe discharge plan. Discharge Recommendations Plan/Recommendations: Continue POC Treatment Plan/Plan of Care Patient would benefit from OT for education, treatment and training to promote independence in ADL's, mobility, safety and/or upper extremity function for ADL' s. Plan of Care: ADL Retraining, Functional Mobility, UE Funct Exercise/Act Treatment Duration: Jan 16, 2019 Frequency: 5 times per week Estimated Hrs Per Day: .25 hour per day Rehab Potential: Guarded Time/GCodes Start Time: 13:15 Stop Time: 13:40 Total Time Billed (hr/min): 25 Billed Treatment Time 1 visit-EX 1 (10 min) FA 1 (15 min) REYMUNDO SHIPLEY Jan 05, 2019 13:48
--- NOTE | 2019-01-05 14:59 | NUR ---
CALLED AND SPOKE WITH CANDY FROM [facility] AND PATIENT'S LAST FLU VACCINE WAS 08/13/2017.
--- NOTE | 2019-01-05 15:06 | Pulmonary Progress Note ---
Subjective Time Seen by a Provider: 15:06 Subjective/Events-last exam PT appears to be doing better. Sepsis Event Evaluation Height, Weight, BMI Height: 5'7.00" Weight: 203lbs. 2.0oz. 92.182902qe; 34.8 BMI Method:Stated Focused Exam Time of Focused Exam: 1440 Exam Exam Vital Signs Date Time Temp Pulse Resp B/P (MAP) Pulse Ox O2 Delivery O2 Flow Rate FiO2 01/05/19 14:39 95 High Flow N/C 5.00 01/05/19 11:40 95 High Flow N/C 5.00 01/05/19 09:00 93 Nasal Cannula 5.00 01/05/19 08:00 97.9 79 20 133/66 (88) 93 Nasal Cannula 5.00 01/05/19 06:37 95 High Flow N/C 5.00 01/05/19 06:29 95 High Flow N/C 5.00 01/05/19 00:00 98.1 73 18 138/79 (98) 94 High Flow N/C 5.00 01/04/19 21:00 High Flow N/C 5.00 01/04/19 19:13 High Flow N/C 5.00 01/04/19 19:13 93 High Flow N/C 5.00 01/04/19 15:58 97.4 76 20 131/80 (97) 95 Nasal Cannula 5.00 I & O 01/05/19 07:00 Intake Total 2020 ml Output Total 4300 ml Balance -2280 ml Height & Weight Height: 5'7.00" Weight: 203lbs. 2.0oz. 92.104970tk; 34.8 BMI Method:Stated General Appearance: No Apparent Distress, WD/WN, Chronically ill, Obese HEENT: Normal ENT Inspection Neck: Full Range of Motion, Normal Inspection Respiratory: No Accessory Muscle Use, No Respiratory Distress, Crackles, Decreased Breath Sounds Cardiovascular: Regular Rate, Rhythm, No Murmur Capillary Refill: Less Than 3 Seconds Peripheral Pulses: 3+ Radial Pulses (L) Gastrointestinal: non tender, soft Extremity: Normal Inspection, Pedal Edema Neurologic/Psychiatric: Alert, Oriented x3, No Motor/Sensory Deficits, Normal Mood/Affect, directory carrier II-XII Norm as Tested, Other (sedated) Results Lab Laboratory Tests 3/17/19 05:55 01/05/19 05:08 Assessment/Plan Assessment/Plan -Acute on chronic respiratory failure EF 60 65% -Solumedrol 40 Q 6 -- change to prednisone taper -Pt needs home vent to mask upon discharge he is high risk for frequent readmissions and worsening respiratory failure. -Pt is from [facility] so will not be able to get home vent to mask -Will ask SW to see if we can get pt BiPAP for after discharge Pneumonia with severe sepsis with mucous plugging --enterobacter -Cefepime -S/p bronchoscopy -Duoneb Q4 with easy PAP -INflu neg Atelectasis -IS -Easy PAP with Q4 DuoNeb Mediastinal lymphadenopathy probably reactive however present and worse since r/o cancer -Will need to repeat CT scan 8 wks after discharge. COPDAE -SVNS -steroids Elevated troponin - probably secondary to hypoxia -Cardiology following -repeat troponin Tobacco use -Education KEYONA EVANS DO Jan 05, 2019 15:06
--- NOTE | 2019-01-05 15:28 | NUR ---
CM/SS called [facility] to see about patient's need for BiPap. The respiratory therapist was out and call back information was left.
[2019-01-05] MEDS ORDERED: FLU QUADRIvalent (5+ YOA) 2018-2019 (AFLURIA) 0.5 ML IM ONE (15:37)
[2019-01-05 16:32] VITALS: BP 114/59
[2019-01-05 20:33] VITALS: BP 126/76
[2019-01-05] MEDS: lisINopril 5 MG (PRINIVIL) TABLET PO SCH (20:36)
[2019-01-05 23:22] VITALS: BP 127/65
[2019-01-06] MEDS: CEFEPIME INJECTION 1,000 MG in WATER (STERILE) FOR INJECTION 10 ML IV SCH (03:04)
[2019-01-06 04:16] VITALS: BP 123/72
[2019-01-06 05:24] LABS: BASOPHILS % (AUTO) 0 % (0-10); EOSINOPHILS % (AUTO) 0 % (0-10); HEMATOCRIT 46 % (40-54); HEMOGLOBIN 15.4 G/DL (13.3-17.7); LYMPHOCYTES # (AUTO) 1.9 X 10^3 (1.0-4.0); LYMPHOCYTES % (AUTO) 15 % (12-44); MEAN CORPUSCULAR HEMOGLOBIN 30 PG (25-34); MEAN CORPUSCULAR HGB CONC 34 G/DL (32-36); MEAN CORPUSCULAR VOLUME 88 FL (80-99); MEAN PLATELET VOLUME 11.5 FL (7.4-10.4); MONOCYTES % (AUTO) 8 % (0-12); NEUTROPHILS # (AUTO) 9.8 X 10^3 (1.8-7.8); NEUTROPHILS % (AUTO) 77 % (42-75); PLATELET COUNT 106 10^3/uL (130-400); RED CELL DISTRIBUTION WIDTH 16.5 % (10.0-14.5); WHITE BLOOD COUNT 12.8 10^3/uL (4.3-11.0)
[2019-01-06 05:43] LABS: BUN/CREATININE RATIO 37; CALCIUM 8.1 MG/DL (8.5-10.1); CARBON DIOXIDE 27 MMOL/L (21-32); CHLORIDE 102 MMOL/L (98-107); CREATININE SERUM 0.82 MG/DL (0.60-1.30); GFR ESTIMATED > 60; GLUCOSE 112 MG/DL (70-105); MAGNESIUM 2.4 MG/DL (1.8-2.4); PHOSPHORUS 3.1 MG/DL (2.3-4.7); POTASSIUM 3.7 MMOL/L (3.6-5.0); SODIUM 137 MMOL/L (135-145)
--- NOTE | 2019-01-06 06:42 | Pulmonary Progress Note ---
Subjective Time Seen by a Provider: 06:48 Subjective/Events-last exam No complications noted. Sepsis Event Evaluation Height, Weight, BMI Height: 5'7.00" Weight: 203lbs. 2.0oz. 92.021592gh; 34.8 BMI Method:Stated Focused Exam Time of Focused Exam: 1440 Exam Exam Vital Signs Date Time Temp Pulse Resp B/P (MAP) Pulse Ox O2 Delivery O2 Flow Rate FiO2 01/06/19 04:16 97.0 60 20 123/72 (89) 95 High Flow N/C 5.00 01/05/19 23:22 98.0 71 20 127/65 (85) 98 High Flow N/C 5.00 01/05/19 21:00 High Flow N/C 5.00 01/05/19 20:33 74 20 126/76 (93) 97 High Flow N/C 5.00 01/05/19 18:45 High Flow N/C 5.00 01/05/19 16:32 98.1 66 18 114/59 (77) 98 Nasal Cannula 5.00 01/05/19 14:39 95 High Flow N/C 5.00 01/05/19 11:40 95 High Flow N/C 5.00 01/05/19 09:00 93 Nasal Cannula 5.00 01/05/19 08:00 97.9 79 20 133/66 (88) 93 Nasal Cannula 5.00 01/05/19 06:37 95 High Flow N/C 5.00 I & O 01/06/19 07:00 Intake Total 1132 ml Output Total 3125 ml Balance -1993 ml Height & Weight Height: 5'7.00" Weight: 203lbs. 2.0oz. 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 -Pt is from [facility] so will not be able to get home vent to mask -Will ask SW to see if we can get pt BiPAP for after discharge Pneumonia with severe sepsis with mucous plugging --enterobacter -Cefepime - Change to Omnicef PO -S/p bronchoscopy -Duoneb Q4 with easy PAP -INflu neg Leukocytosis -Probably secondary to steroids. CXR shows improvement. No Fever Atelectasis -IS -Easy PAP with Q4 DuoNeb Mediastinal lymphadenopathy probably reactive however present and worse since r/o cancer -Will need to repeat CT scan 8 wks after discharge. COPDAE -SVNS -steroids Elevated troponin - probably secondary to hypoxia -Cardiology following -repeat troponin Tobacco use -Education Pt is ok from pulmonary standpoint for discharge. Will f/u in 2-3wks. KEYONA EVANS DO Jan 06, 2019 06:42
[2019-01-06] MEDS: RT-ALBUTEROL/IPRATROPIUM 3 ML (DUONEB) VIAL INH SCH ×3 (07:07→14:56)
--- NOTE | 2019-01-06 08:05 | Progress Note (SOAP) ---
Subjective Time Seen by a Provider: 08:02 Subjective/Events-last exam Patient feeling good and doing good. Plan to discharge today. Rx Omnicef 300 mg number 14 one twice a day. Chest x-ray yesterday shows improvement Focused Exam Time of Focused Exam: 1440 Objective Exam Vital Signs Date Time Temp Pulse Resp B/P (MAP) Pulse Ox O2 Delivery O2 Flow Rate FiO2 01/06/19 07:07 86 Nasal Cannula 5.00 01/06/19 04:16 97.0 60 20 123/72 (89) 95 High Flow N/C 5.00 01/05/19 23:22 98.0 71 20 127/65 (85) 98 High Flow N/C 5.00 01/05/19 21:00 High Flow N/C 5.00 01/05/19 20:33 74 20 126/76 (93) 97 High Flow N/C 5.00 01/05/19 18:45 High Flow N/C 5.00 01/05/19 16:32 98.1 66 18 114/59 (77) 98 Nasal Cannula 5.00 01/05/19 14:39 95 High Flow N/C 5.00 01/05/19 11:40 95 High Flow N/C 5.00 01/05/19 09:00 93 Nasal Cannula 5.00 I & O 01/06/19 07:00 Intake Total 1432 ml Output Total 3775 ml Balance -2343 ml Capillary Refill : Less Than 3 SecondsLess Than 3 Seconds General Appearance: No Apparent Distress, WD/WN HEENT: Normal ENT Inspection Neck: Full Range of Motion, Normal Inspection Respiratory: No Accessory Muscle Use, No Respiratory Distress, Decreased Breath Sounds Cardiovascular: Regular Rate, Rhythm, No Murmur Gastrointestinal: non tender, soft Results Lab Laboratory Tests 01/06/19 05:10 Laboratory Tests 01/06/19 05:10: White Blood Count 12.8H, Red Blood Count 5.20, Hemoglobin 15.4, Hematocrit 46, Mean Corpuscular Volume 88, Mean Corpuscular Hemoglobin 30, Mean Corpuscular Hemoglobin Concent 34, Red Cell Distribution Width 16.5H, Platelet Count 106L, Mean Platelet Volume 11.5H, Neutrophils (%) (Auto) 77H, Lymphocytes (%) (Auto) 15, Monocytes (%) (Auto) 8, Eosinophils (%) (Auto) 0, Basophils (%) (Auto) 0, Neutrophils # (Auto) 9.8H, Lymphocytes # (Auto) 1.9, Monocytes # (Auto) 1.0, Eosinophils # (Auto) 0.0, Basophils # (Auto) 0.0, Sodium Level 137, Potassium Level 3.7, Chloride Level 102, Carbon Dioxide Level 27, Anion Gap 8, Blood Urea Nitrogen 30H, Creatinine 0.82, Estimat Glomerular Filtration Rate > 60, BUN/ Creatinine Ratio 37, Glucose Level 112H, Calcium Level 8.1L, Phosphorus Level 3.1, Magnesium Level 2.4 Microbiology 12/27/18 Blood Culture - Final, Complete No growth 12/30/18 Mycobacterial Culture - Preliminary, Resulted 12/27/18 Urine Culture - Final, Complete NO GROWTH Assessment/Plan Assessment/Plan Assess & Plan/Chief Complaint Acute respiratory failure. Febrile. COPD. Elevated troponin. Hypotension. Sepsis. Hypoxia. COPD. Gallstones. Thrombocytopenia. . 12/30/18. Acute respiratory failure. Febrile. COPD. Hypotension resolved. Sepsis. Gallstones. Thrombocytopenia stabilized. Patient had a bronchoscopy this a.m. . 12/31/18. Acute respiratory failure. Hypoxia. Pneumonia. Sepsis. Elevated troponin. Thrombocytopenia. Hypotension. Tobacco usage. . 01/01/19 area Acute respiratory failure. Hypoxia. Pneumonia. Sepsis. Elevated troponin. Thrombocytopenia. Hypotension with now hypertension. Tobacco usage. . . 01/01/19. Acute respiratory failure. Hypoxia. Pneumonia. Sepsis. Elevated troponin area Thrombocytopenia. Hypertension with now hypertension. Tobacco usage. . 01/02/19 acute respiratory failure resolved. Hypoxia resolved. Pneumonia improving. Sepsis. Elevated troponin. Thrombocytopenia getting worse area Tobacco usage. Patient going to medical floor today. . 01/05/19. Acute respiratory failure resolved. Pneumonia. Sepsis. Elevated troponin. Thrombocytopenia starting to go up a little. Patient improving. . 01/06/19. Acute respiratory failure resolved. Pneumonia better. Sepsis resolved. Thrombocytopenia stabilized over 100. Patient feeling better [facility] Clinical Quality Measures DVT/VTE Risk/Contraindication: Risk Factor Score Per Nursin RFS Level Per Nursing on Admit: 4+=Very High ART CASANOVA DO Jan 06, 2019 08:04
--- NOTE | 2019-01-06 08:15 | Cardiology Progress Note ---
Subjective Date Seen by Provider: Jan 06, 2019 Time Seen by Provider: 08:11 Subjective/Events-last exam Patient is sitting up in bed, eating breakfast, no new complaints. Continues to complain of dyspnea. Focused Exam Time of Focused Exam: 1440 Objective-Cardiology Exam Last Set of Vital Signs Vital Signs 01/02/19 01/06/19 01/06/19 11:20 04:16 07:07 Temp 97.0 Pulse 60 Resp 20 B/P (MAP) 123/72 (89) Pulse Ox 86 O2 Delivery Nasal Cannula O2 Flow Rate 5.00 FiO2 96 Capillary Refill : Less Than 3 SecondsLess Than 3 Seconds I&O Intake and Output 01/06/19 00:00 Intake Total 2132 ml Output Total 4475 ml Balance -2343 ml Intake Oral 2122 ml IV Total 10 ml Output Urine Total 4475 ml # Bowel Movements 1 General: Alert, Oriented X3, Cooperative HEENT: Atraumatic, PERRLA Neck: Supple, No JVD, No Thyromegaly Lungs: Other (bilat exp wheezing) Heart: Regular Rate, Normal S1, Normal S2 Abdomen: Normal Bowel Sounds, No Masses Extremities: No Edema Skin: No Rashes, No Significant Lesion Neuro: Normal Speech Psych/Mental Status: Mental Status NL, Mood NL Results Lab Laboratory Tests 01/06/19 05:10 A/P-Cardiology Admission Diagnosis acute respiratory failure pneumonia Elevated troponin CAD HTN Assessment/Plan Acute respiratory failure, probably due to R-sided pneumonia, improved significantly, Dr. Redmond following. Hypoxia due to ac resp failure, improved Elevated troponin due to hypoxia (type 2 WI). 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 Echo of 09/25/18: LVEF 60-65%, PASP 25 mmHg H/o gallstones. Abdominal u/s of May 2017: the gallbladder is most likely filled with calculi - being followed by Dr. Narayan No evidence of AAA on abd ao screening scan of 04/18/18 COPD Fam h/o early CAD (father to [place] in his early 50s) Chronic tobacco use Hypertension, controlled, continue to monitor BP/HR Bipolar disorder Chronic mild, intermittent leg swelling, JULITA's of 04/08/18 did not show evidence of significant obstructive PAD Carotid artery stenosis: 50-60% R ICA and 60-79% L ICA stenoses on carotid u/s of Oct 2018 Clinical Quality Measures DVT/VTE Risk/Contraindication: Risk Factor Score Per Nursin RFS Level Per Nursing on Admit: 4+=Very High ANDRE ZARATE Jan 06, 2019 08:15
--- NOTE | 2019-01-06 08:18 | NUR ---
Spoke with Marilyn Richardson NP about patient's blood pressure and she will address the blood pressure medication.
[2019-01-06 08:22] VITALS: BP 105/62
--- NOTE | 2019-01-06 08:36 | Cardiology Progress Note ---
Subjective Date Seen by Provider: Jan 06, 2019 Time Seen by Provider: 08:34 Subjective/Events-last exam patient is laying down in bed, still having some shortness of breath. No palpitation. Denied any chest pain. Review of Systems General: No Chills, No Night Sweats, No Fatigue, No Malaise, No Appetite, No Other HEENT: No Head Aches, No Visual Changes, No Eye Pain, No Ear Pain, No Dysphasia , No Sinus Congestion, No Post Nasal Drip, No Sore Throat, No Other Pulmonary: Dyspnea; No Cough, No Pleuritic Chest Pain, No Other Cardiovascular: Edema; No: Chest Pain, Palpitations, Orthopnea, Paroxysmal Noc. Dyspnea, Lt Headedness, Other Focused Exam Time of Focused Exam: 1440 Objective-Cardiology Exam Last Set of Vital Signs Vital Signs 01/02/19 01/06/19 11:20 08:22 Temp 97.9 Pulse 60 Resp 18 B/P (MAP) 105/62 (76) Pulse Ox 92 O2 Delivery Nasal Cannula O2 Flow Rate 7.00 FiO2 96 Capillary Refill : Less Than 3 SecondsLess Than 3 Seconds I&O Intake and Output 01/06/19 00:00 Intake Total 2132 ml Output Total 4475 ml Balance -2343 ml Intake Oral 2122 ml IV Total 10 ml Output Urine Total 4475 ml # Bowel Movements 1 General: Alert, Oriented X3, Cooperative HEENT: Atraumatic, PERRLA Neck: Supple, No JVD, No Thyromegaly Lungs: Other (bilat exp wheezing) Heart: Regular Rate, Normal S1, Normal S2 Abdomen: Normal Bowel Sounds, No Masses Extremities: No Edema Skin: No Rashes, No Significant Lesion Neuro: Normal Speech Psych/Mental Status: Mental Status NL, Mood NL Results Lab Laboratory Tests 01/06/19 05:10 A/P-Cardiology Admission Diagnosis Acute respiratory failure Pneumonia Elevated troponin CAD HTN Assessment/Plan Acute respiratory failure, probably due to R-sided pneumonia, improved significantly, Dr. Redmond following. Elevated troponin due to hypoxia (type 2 SC). No evidence of SC, continue to monitor Nonobstructive CAD per Cardiac cath of May 2017, continue to monitor. Echo of 09/25/18: LVEF 60-65%, PASP 25 mmHg, continue to monitor H/o gallstones. Abdominal u/s of May 2017: the gallbladder is most likely filled with calculi - being followed by Dr. Narayan No evidence of AAA on abd ao screening scan of 04/18/18 COPD Family history of early CAD (father to [place] in his early 50s) Chronic tobacco use Hypertension, controlled, continue to monitor BP/HR Bipolar disorder Chronic mild, intermittent leg swelling, JULITA's of 04/08/18 did not show evidence of significant obstructive PAD Carotid artery stenosis: 50-60% R ICA and 60-79% L ICA stenoses on carotid u/s of Oct 2018 Clinical Quality Measures DVT/VTE Risk/Contraindication: Risk Factor Score Per Nursin RFS Level Per Nursing on Admit: 4+=Very High KIRAA AMAYA MD Jan 06, 2019 08:36
[2019-01-06] MEDS: DIVALPROX SPRINKLE 125 MG (DEPAKOTE) CAP PO SCH ×2 (08:56→12:58)
[2019-01-06] MEDS: meTOprolol TARTRATE 25 MG (LOPRESSOR) TABLET PO SCH (08:56)
[2019-01-06] MEDS: clonazePAM 0.5 MG (KlonoPIN) TAB PO SCH (08:56)
[2019-01-06] MEDS: FUROSEMIDE 20 MG (LASIX) TAB PO SCH (08:56)
[2019-01-06] MEDS: MULTIVIT W/MINERALS TAB (THERAGRAN M) PO SCH (08:56)
[2019-01-06] MEDS: PANTOPRAZOLE 40 MG (PROTONIX) TAB PO SCH (08:56)
[2019-01-06] MEDS: ASPIRIN E.C. 81 MG (ECOTRIN) TAB PO SCH (08:57)
[2019-01-06] MEDS ORDERED: predniSONE 10 MG TAB PO SCH (09:00)
[2019-01-06] MEDS ORDERED: CEFDINIR 300 MG (OMNICEF) CAP PO SCH (09:00)
[2019-01-06] MEDS: ENOXAPARIN 40 MG/0.4 ML (LOVENOX) SYR SC SCH (09:01)
--- NOTE | 2019-01-06 10:26 | NUR ---
CM/SS [facility] is not contracted with DME they use [employer] for BiPap. [facility] would need a signed order with the settings and they will get it through their contractor.
[2019-01-06] MEDS: ADVAIR HFA 115/21 MCG INHALER 8 GM IH SCH (10:40)
[2019-01-06] MEDS ORDERED: CEFD300C3 PO (11:16)
--- NOTE | 2019-01-06 11:35 | Occupational Ther Daily Note ---
OT Current Status-Daily Note Subjective Pt alert, sitting in recliner. Pt agrees to therapy. No c/o pain. Pt mumbles and is difficult to understand. Mental Status/Objective Patient Orientation: Person, Mumbles Therapy Code Descriptions/Definitions Functional Garrett Measure: 0=Not Assessed/NA 4=Minimal Assistance 1=Total Assistance 5=Supervision or Setup 2=Maximal Assistance 6=Modified Garrett 3=Moderate Assistance 7=Complete Garrett ADL-Treatment Grooming (FIM): 5 (After setup pt able to complete without difficulty.) Other Treatment Pt able to complete light resistance theraband exercises to increase UE strength and activity tolerance for daily functional tasks. Pt able to complete 3 sets 10 reps of 3 UE exercises, skilled therapy needed to complete correct techniques, visual cues. After therapy, pt sitting in recliner with call light/phone in reach. All needs met in room. OT Short Term Goals Short Term Goals 1=Demonstrate adherence to instructed precautions during ADL tasks. 2=Patient will verbalize/demonstrate understanding of assistive devices/ modifications for ADL. 3=Patient will improve strength/tolerance for activity to enable patient to perform ADL's. OT Meat Products Demonstrator Goals Meat Products Demonstrator Goals Time Frame: Jan 16, 2019 Eating (FIM): 5 Grooming(FIM): 5 Upper Body Dressing(FIM): 5 Lower Body Dressing(FIM): 4 Toileting(FIM): 4 Toilet/Commode Transfer(FIM): 4 Additional Goals: 1-Demonstrate ADL Tasks, 2-Verbalize Understanding, 3- ImproveStrength/Gracy 1=Demonstrate adherence to instructed precautions during ADL tasks. 2=Patient will verbalize/demonstrate understanding of assistive devices/ modifications for ADL. 3=Patient will improve strength/tolerance for activity to enable patient to perform ADL's. OT Education/Plan Problem List/Assessment Pt to benefit from skilled OT intervention for ADL training, transfers, and strengthening to maximize level of independence and allow safe discharge plan. Discharge Recommendations Plan/Recommendations: Continue POC Treatment Plan/Plan of Care Patient would benefit from OT for education, treatment and training to promote independence in ADL's, mobility, safety and/or upper extremity function for ADL' s. Plan of Care: ADL Retraining, Functional Mobility, UE Funct Exercise/Act Treatment Duration: Jan 16, 2019 Frequency: 5 times per week Estimated Hrs Per Day: .25 hour per day Rehab Potential: Guarded Time/GCodes Start Time: 11:00 Stop Time: 11:15 Total Time Billed (hr/min): 15 Billed Treatment Time 1 visit-EX 1 (15 min) REYMUNDO SHIPLEY Jan 06, 2019 11:35
--- NOTE | 2019-01-06 11:54 | NUR ---
CM/SS [facility] will transport the patient back to their facility this day around 1530. Dr. Redmond will write order for BiPap settings and it will be provided to [facility] for them to get through their contracted DME [employer]. Discussed that patient will need portable oxygen and clothing, they will bring when come to transport.
--- NOTE | 2019-01-06 11:58 | Physical Therapy Progress Note ---
Therapy Progress Note x3 attempts to see pt for PT treatment, x1 was with nursing staff, x1 with OT, last attempt, pt refused stating he is not getting up out of his chair and will not do exercises when asked. CLARIBEL RUSSELL RELIGIOUS HEALER Jan 06, 2019 11:58
--- NOTE | 2019-01-06 15:47 | NUR ---
REPORT CALLED TO AGUSTÍN AT [facility].
--- NOTE | 2019-01-07 07:25 | Discharge Summary ---
Diagnosis/Chief Complaint Date of Admission Dec 27, 2018 at 16:14 Date of Discharge Jan 06, 2019 at 16:30 Discharge Date: Jan 06, 2019 Discharge Time: 07:22 Discharge Diagnosis Acute and chronic respiratory failure. Sepsis. Pneumonia. COPD with acute exacerbation. Hypotension. Tobacco use. Leukocytosis. Thrombocytopenia. Elevated troponin. MI2. CHF. Hypophosphatemia. Bronchial culture Enterobacter aerogenes. Anxiety. Bipolar Discharge Summary Procedures Ventilator. Bronchoscopy Consultations Cardiology. Pulmonology Discharge Physical Examination Allergies: Coded Allergies: No Known Drug Allergies (Unverified , 12/07/16) Vitals & I&Os Vital Signs Date Time Temp Pulse Resp B/P (MAP) Pulse Ox O2 Delivery O2 Flow Rate FiO2 01/06/19 16:30 01/06/19 14:58 94 Nasal Cannula 7.00 01/06/19 08:22 97.9 60 18 01/02/19 11:20 96 Hospital Course Labs (last 24 hrs) Laboratory Tests 12/27/18 12:10: White Blood Count 13.7H, Red Blood Count 5.35, Hemoglobin 15.6, Hematocrit 48, Mean Corpuscular Volume 90, Mean Corpuscular Hemoglobin 29, Mean Corpuscular Hemoglobin Concent 33, Red Cell Distribution Width 18.4H, Platelet Count 80L, Mean Platelet Volume 10.6H, Neutrophils (%) (Auto) 87H, Lymphocytes (%) (Auto) 5L, Monocytes (%) (Auto) 8, Eosinophils (%) (Auto) 0, Basophils (%) (Auto) 0, Neutrophils # (Auto) 11.9H, Lymphocytes # (Auto) 0.7L, Monocytes # (Auto) 1.1H, Eosinophils # (Auto) 0.0, Basophils # (Auto) 0.0, Neutrophils % (Manual) 66, Lymphocytes % (Manual) 2, Monocytes % (Manual) 10, Band Neutrophils 22, Toxic Granulation 1+, Blood Morphology Comment NORMAL, Prothrombin Time 13.6, INR Comment 1.0, Activated Partial Thromboplast Time 37H, Sodium Level 137, Potassium Level 4.7, Chloride Level 97L, Carbon Dioxide Level 29, Anion Gap 11, Blood Urea Nitrogen 33H, Creatinine 1.14, Estimat Glomerular Filtration Rate > 60, BUN/Creatinine Ratio 29, Glucose Level 114H, Lactic Acid Level 1.42, Calcium Level 8.7, Corrected Calcium 8.9, Total Bilirubin 0.7, Aspartate Amino Transf (AST/SGOT) 47H, Alanine Aminotransferase (ALT/SGPT) 27, Alkaline Phosphatase 55, Troponin I 0.554*H, C-Reactive Protein High Sensitivity 16.78H, B-Type Natriuretic Peptide 836.1H, Total Protein 7.1, Albumin 3.8 12/27/18 12:32: Urine Color YELLOW, Urine Clarity SLIGHTLY CLOUDY, Urine pH 5, Urine Specific [place] 1.020, Urine Protein 2+H, Urine Glucose (UA) NEGATIVE, Urine Ketones NEGATIVE, Urine Nitrite NEGATIVE, Urine Bilirubin NEGATIVE, Urine Urobilinogen NORMAL, Urine Leukocyte Esterase NEGATIVE, Urine RBC (Auto) 2+H, Urine RBC NONE , Urine WBC NONE, Urine Squamous Epithelial Cells NONE, Urine Crystals NONE, Urine Bacteria TRACE, Urine Casts NONE, Urine Mucus NEGATIVE, Urine Culture Indicated NO 12/27/18 12:40: Blood Gas Puncture Site LT RAD, Blood Gas Patient Temperature 103.4, Arterial Blood pH 7.26*L, Arterial Blood Partial Pressure CO2 78*H, Arterial Blood Partial Pressure O2 147H, Arterial Blood HCO3 32H, Arterial Blood Total CO2 34.4H, Arterial Blood Oxygen Saturation 99, Arterial Blood Base Excess 6.1H, Jeff Test YES-POS, Blood Gas Ventilator Setting NO, Blood Gas Inspired Oxygen BIPAP 90% 12/27/18 13:25: Blood Gas Puncture Site LT RAD, Blood Gas Patient Temperature 102, Arterial Blood pH 7.28*L, Arterial Blood Partial Pressure CO2 73*H, Arterial Blood Partial Pressure O2 77L, Arterial Blood HCO3 32H, Arterial Blood Total CO2 34.3H , Arterial Blood Oxygen Saturation 90L, Arterial Blood Base Excess 6.1H, Jeff Test YES-POS, Blood Gas Ventilator Setting NO, Blood Gas Inspired Oxygen BIPAP 70% 12/27/18 16:14: Lab Scanned Report Referred Lab Report 12/27/18 16:50: Sodium Level 137, Potassium Level 5.4H, Chloride Level 102, Carbon Dioxide Level 24, Anion Gap 11, Blood Urea Nitrogen 31H, Creatinine 1.15, Estimat Glomerular Filtration Rate > 60, BUN/Creatinine Ratio 27, Glucose Level 142H, Lactic Acid Level 0.92, Calcium Level 7.8L, Corrected Calcium 8.2L, Total Bilirubin 0.7, Aspartate Amino Transf (AST/SGOT) 46H, Alanine Aminotransferase ( ALT/SGPT) 26, Alkaline Phosphatase 48, Total Protein 6.5, Albumin 3.5, Triglycerides Level 107 12/27/18 17:00: Blood Gas Puncture Site LT RAD, Blood Gas Patient Temperature 97.0, Arterial Blood pH 7.21*L, Arterial Blood Partial Pressure CO2 78*H, Arterial Blood Partial Pressure O2 126H, Arterial Blood HCO3 30H, Arterial Blood Total CO2 32.8H, Arterial Blood Oxygen Saturation 98, Arterial Blood Base Excess 2.8H, Jeff Test YES-POS, Blood Gas Ventilator Setting NO, Blood Gas Inspired Oxygen 70% BIPAP 12/27/18 20:25: Blood Gas Puncture Site LEFT RADIAL, Blood Gas Patient Temperature 96.6, Arterial Blood pH 7.24*L, Arterial Blood Partial Pressure CO2 63H, Arterial Blood Partial Pressure O2 291H, Arterial Blood HCO3 27, Arterial Blood Total CO2 28.8, Arterial Blood Oxygen Saturation 100, Arterial Blood Base Excess 0.0, Jeff Test YES-POS, Blood Gas Ventilator Setting YES, Blood Gas Inspired Oxygen 100% 12/27/18 23:38: Glucometer 189H 12/28/18 03:45: White Blood Count 15.1H, Red Blood Count 5.33, Hemoglobin 15.4, Hematocrit 49, Mean Corpuscular Volume 91, Mean Corpuscular Hemoglobin 29, Mean Corpuscular Hemoglobin Concent 32, Red Cell Distribution Width 18.7H, Platelet Count 99L, Mean Platelet Volume 12.3H, Neutrophils (%) (Auto) 92H, Lymphocytes (%) (Auto) 5L, Monocytes (%) (Auto) 3, Eosinophils (%) (Auto) 0, Basophils (%) (Auto) 0, Neutrophils # (Auto) 13.9H, Lymphocytes # (Auto) 0.8L, Monocytes # (Auto) 0.4, Eosinophils # (Auto) 0.0, Basophils # (Auto) 0.0, Blood Gas Puncture Site LEFT RADIAL, Blood Gas Patient Temperature 98.4, Arterial Blood pH 7.30*L, Arterial Blood Partial Pressure CO2 50H, Arterial Blood Partial Pressure O2 91, Arterial Blood HCO3 24, Arterial Blood Total CO2 25.1, Arterial Blood Oxygen Saturation 97, Arterial Blood Base Excess -2.0, Jeff Test YES-POS, Blood Gas Ventilator Setting YES, Blood Gas Inspired Oxygen 50%, Sodium Level 141, Potassium Level 4.3, Chloride Level 108H, Carbon Dioxide Level 20L, Anion Gap 13, Blood Urea Nitrogen 29H, Creatinine 1.11, Estimat Glomerular Filtration Rate > 60, BUN/ Creatinine Ratio 26, Glucose Level 199H, Calcium Level 7.5L, Phosphorus Level 1.5L, Magnesium Level 2.0, Troponin I 1.189*H 12/28/18 05:03: Glucometer 182H 12/28/18 13:02: Glucometer 174H 12/28/18 15:35: Vancomycin Level Trough 23.4H 12/28/18 17:59: Glucometer 155H 12/28/18 23:10: Vancomycin Level Trough 16.1 12/29/18 00:37: Glucometer 175H 12/29/18 03:35: White Blood Count 12.1H, Red Blood Count 5.09, Hemoglobin 14.9, Hematocrit 46, Mean Corpuscular Volume 91, Mean Corpuscular Hemoglobin 29, Mean Corpuscular Hemoglobin Concent 32, Red Cell Distribution Width 19.1H, Platelet Count 95L, Mean Platelet Volume 11.3H, Neutrophils (%) (Auto) 91H, Lymphocytes (%) (Auto) 5L, Monocytes (%) (Auto) 4, Eosinophils (%) (Auto) 0, Basophils (%) (Auto) 0, Neutrophils # (Auto) 11.1H, Lymphocytes # (Auto) 0.6L, Monocytes # (Auto) 0.5, Eosinophils # (Auto) 0.0, Basophils # (Auto) 0.0, Sodium Level 148H, Potassium Level 3.5L, Chloride Level 115H, Carbon Dioxide Level 22, Anion Gap 11, Blood Urea Nitrogen 19H, Creatinine 0.97, Estimat Glomerular Filtration Rate > 60, BUN /Creatinine Ratio 20, Glucose Level 202H, Calcium Level 7.8L, Phosphorus Level 1.2L, Magnesium Level 2.1, Troponin I 1.114*H, B-Type Natriuretic Peptide 79.6 12/29/18 03:40: Blood Gas Puncture Site LEFT ART LINE, Blood Gas Patient Temperature 99.9, Arterial Blood pH 7.30*L, Arterial Blood Partial Pressure CO2 51H, Arterial Blood Partial Pressure O2 97H, Arterial Blood HCO3 24, Arterial Blood Total CO2 25.9, Arterial Blood Oxygen Saturation 97, Arterial Blood Base Excess -1.0, Jeff Test ART LINE, Blood Gas Ventilator Setting YES, Blood Gas Inspired Oxygen 50% 3/11/19 11:37: Glucometer 178H 12/29/18 17:34: Glucometer 131H 12/29/18 17:50: Triglycerides Level 321H 12/30/18 00:10: Glucometer 138H 12/30/18 03:05: White Blood Count 10.2, Red Blood Count 5.03, Hemoglobin 14.7, Hematocrit 46, Mean Corpuscular Volume 91, Mean Corpuscular Hemoglobin 29, Mean Corpuscular Hemoglobin Concent 32, Red Cell Distribution Width 19.6H, Platelet Count 95L, Mean Platelet Volume 11.4H, Neutrophils (%) (Auto) 88H, Lymphocytes (%) (Auto) 7L, Monocytes (%) (Auto) 5, Eosinophils (%) (Auto) 0, Basophils (%) (Auto) 0, Neutrophils # (Auto) 8.9H, Lymphocytes # (Auto) 0.7L, Monocytes # (Auto) 0.5, Eosinophils # (Auto) 0.0, Basophils # (Auto) 0.0, Blood Gas Puncture Site ART LINE, Blood Gas Patient Temperature 101.6, Arterial Blood pH 7.39, Arterial Blood Partial Pressure CO2 49H, Arterial Blood Partial Pressure O2 75L, Arterial Blood HCO3 28H, Arterial Blood Total CO2 29.4, Arterial Blood Oxygen Saturation 94, Arterial Blood Base Excess 3.7H, Jeff Test ART LINE, Blood Gas Ventilator Setting YES, Blood Gas Inspired Oxygen 40%, Sodium Level 149H, Potassium Level 4.0, Chloride Level 113H, Carbon Dioxide Level 24, Anion Gap 12 , Blood Urea Nitrogen 19H, Creatinine 0.86, Estimat Glomerular Filtration Rate > 60, BUN/Creatinine Ratio 22, Glucose Level 148H, Calcium Level 7.6L, Phosphorus Level 1.9L, Magnesium Level 1.7L 12/30/18 05:55: Body Fluid Source BRONCH, Body Fluid Color PALE YELLOW, Body Fluid Appearance MOD CLDY, Body Fluid Polynuclear WBCs 94, Body Fluid Mononuclear WBCs 4, Body Fluid Lymphocytes 2, Body Fluid Other Cells 0 12/30/18 11:20: Glucometer 144H 12/30/18 18:25: Glucometer 145H 12/31/18 00:12: Glucometer 169H 12/31/18 03:18: White Blood Count 9.6, Red Blood Count 5.15, Hemoglobin 15.2, Hematocrit 47, Mean Corpuscular Volume 91, Mean Corpuscular Hemoglobin 30, Mean Corpuscular Hemoglobin Concent 33, Red Cell Distribution Width 19.7H, Platelet Count 89L, Mean Platelet Volume 10.7H, Neutrophils (%) (Auto) 84H, Lymphocytes (%) (Auto) 9L, Monocytes (%) (Auto) 7, Eosinophils (%) (Auto) 0, Basophils (%) (Auto) 0, Neutrophils # (Auto) 8.0H, Lymphocytes # (Auto) 0.8L, Monocytes # (Auto) 0.7, Eosinophils # (Auto) 0.0, Basophils # (Auto) 0.0, Blood Gas Puncture Site ART LINE, Blood Gas Patient Temperature 98.5, Arterial Blood pH 7.38, Arterial Blood Partial Pressure CO2 49H, Arterial Blood Partial Pressure O2 99H, Arterial Blood HCO3 29H, Arterial Blood Total CO2 30.1, Arterial Blood Oxygen Saturation 98, Arterial Blood Base Excess 3.8H, Jeff Test ART LINE, Blood Gas Ventilator Setting YES, Blood Gas Inspired Oxygen 60%, Sodium Level 148H, Potassium Level 4.4, Chloride Level 111H, Carbon Dioxide Level 25, Anion Gap 12 , Blood Urea Nitrogen 24H, Creatinine 0.77, Estimat Glomerular Filtration Rate > 60, BUN/Creatinine Ratio 31, Glucose Level 171H, Calcium Level 7.7L, Phosphorus Level 2.6, Magnesium Level 2.4, B-Type Natriuretic Peptide 104.8H 12/31/18 11:35: Glucometer 120H 12/31/18 16:59: Glucometer 139H 12/31/18 19:30: Triglycerides Level 574H 01/01/19 00:55: Glucometer 128H 01/01/19 04:27: White Blood Count 9.0, Red Blood Count 5.18, Hemoglobin 15.1, Hematocrit 47, Mean Corpuscular Volume 90, Mean Corpuscular Hemoglobin 29, Mean Corpuscular Hemoglobin Concent 32, Red Cell Distribution Width 19.0H, Platelet Count 84L, Mean Platelet Volume 11.0H, Neutrophils (%) (Auto) 85H, Lymphocytes (%) (Auto) 9L, Monocytes (%) (Auto) 5, Eosinophils (%) (Auto) 0, Basophils (%) (Auto) 1, Neutrophils # (Auto) 7.7, Lymphocytes # (Auto) 0.8L, Monocytes # (Auto) 0.4, Eosinophils # (Auto) 0.0, Basophils # (Auto) 0.1, Blood Gas Puncture Site L RAD , Blood Gas Patient Temperature 97.9, Arterial Blood pH 7.45H, Arterial Blood Partial Pressure CO2 41, Arterial Blood Partial Pressure O2 78L, Arterial Blood HCO3 28H, Arterial Blood Total CO2 29.4, Arterial Blood Oxygen Saturation 96, Arterial Blood Base Excess 4.2H, Jeff Test ART LINE, Blood Gas Ventilator Setting YES, Blood Gas Inspired Oxygen 45%, Sodium Level 140, Potassium Level 4.8, Chloride Level 106, Carbon Dioxide Level 24, Anion Gap 10, Blood Urea Nitrogen 25H, Creatinine 0.73, Estimat Glomerular Filtration Rate > 60, BUN/ Creatinine Ratio 34, Glucose Level 168H, Calcium Level 7.8L, Phosphorus Level 3.7, Magnesium Level 2.5H 01/01/19 09:35: Vancomycin Level Trough 11.0 01/01/19 11:09: Blood Gas Puncture Site LEFT RADIAL, Blood Gas Patient Temperature 96.6, Arterial Blood pH 7.40, Arterial Blood Partial Pressure CO2 52H, Arterial Blood Partial Pressure O2 66L, Arterial Blood HCO3 32H, Arterial Blood Total CO2 33.5H , Arterial Blood Oxygen Saturation 93L, Arterial Blood Base Excess 6.8H, Jeff Test NA, Blood Gas Ventilator Setting YES, Blood Gas Inspired Oxygen 45% 01/01/19 13:22: Glucometer 161H 01/01/19 20:51: Glucometer 141H 01/02/19 04:00: White Blood Count 12.2H, Red Blood Count 5.35, Hemoglobin 15.5, Hematocrit 48, Mean Corpuscular Volume 90, Mean Corpuscular Hemoglobin 29, Mean Corpuscular Hemoglobin Concent 32, Red Cell Distribution Width 18.1H, Platelet Count 71L, Mean Platelet Volume 12.5H, Neutrophils (%) (Auto) 89H, Lymphocytes (%) (Auto) 7L, Monocytes (%) (Auto) 4, Eosinophils (%) (Auto) 0, Basophils (%) (Auto) 0, Neutrophils # (Auto) 10.8H, Lymphocytes # (Auto) 0.9L, Monocytes # (Auto) 0.5, Eosinophils # (Auto) 0.0, Basophils # (Auto) 0.0, Neutrophils % (Manual) 91, Lymphocytes % (Manual) 5, Monocytes % (Manual) 3, Eosinophils % (Manual) 1, Sodium Level 141, Potassium Level 5.0, Chloride Level 99, Carbon Dioxide Level 32, Anion Gap 10, Blood Urea Nitrogen 23H, Creatinine 0.71, Estimat Glomerular Filtration Rate > 60, BUN/Creatinine Ratio 32, Glucose Level 120H, Calcium Level 8.2L, Phosphorus Level 4.0, Magnesium Level 2.3 01/02/19 16:19: Glucometer 129H 01/02/19 20:08: Glucometer 127H 01/03/19 05:30: White Blood Count 9.8, Red Blood Count 5.78, Hemoglobin 16.8, Hematocrit 50, Mean Corpuscular Volume 87, Mean Corpuscular Hemoglobin 29, Mean Corpuscular Hemoglobin Concent 34, Red Cell Distribution Width 16.7H, Platelet Count 73L, Mean Platelet Volume 11.6H, Neutrophils (%) (Auto) 84H, Lymphocytes (%) (Auto) 8L, Monocytes (%) (Auto) 8, Eosinophils (%) (Auto) 0, Basophils (%) (Auto) 0, Neutrophils # (Auto) 8.2H, Lymphocytes # (Auto) 0.7L, Monocytes # (Auto) 0.8, Eosinophils # (Auto) 0.0, Basophils # (Auto) 0.0, Sodium Level 136, Potassium Level 4.3, Chloride Level 94L, Carbon Dioxide Level 31, Anion Gap 11, Blood Urea Nitrogen 25H, Creatinine 0.72, Estimat Glomerular Filtration Rate > 60, BUN /Creatinine Ratio 35, Glucose Level 115H, Calcium Level 8.6, Phosphorus Level 3.2, Magnesium Level 2.5H 01/03/19 05:32: Glucometer 111H 01/03/19 11:39: Glucometer 119H 01/03/19 16:07: Glucometer 139H 01/04/19 05:55: White Blood Count 9.8, Red Blood Count 5.94H, Hemoglobin 17.0, Hematocrit 51, Mean Corpuscular Volume 85, Mean Corpuscular Hemoglobin 29, Mean Corpuscular Hemoglobin Concent 34, Red Cell Distribution Width 16.4H, Platelet Count 99L, Mean Platelet Volume 11.7H, Neutrophils (%) (Auto) 82H, Lymphocytes (%) (Auto) 10L, Monocytes (%) (Auto) 9, Eosinophils (%) (Auto) 0, Basophils (%) (Auto) 0, Neutrophils # (Auto) 8.0H, Lymphocytes # (Auto) 0.9L, Monocytes # (Auto) 0.8, Eosinophils # (Auto) 0.0, Basophils # (Auto) 0.0, Sodium Level 135, Potassium Level 4.2, Chloride Level 96L, Carbon Dioxide Level 29, Anion Gap 10, Blood Urea Nitrogen 25H, Creatinine 0.73, Estimat Glomerular Filtration Rate > 60, BUN /Creatinine Ratio 34, Glucose Level 125H, Calcium Level 8.7, Phosphorus Level 3.4, Magnesium Level 2.4 01/05/19 05:08: White Blood Count 9.8, Red Blood Count 5.59, Hemoglobin 16.1, Hematocrit 48, Mean Corpuscular Volume 86, Mean Corpuscular Hemoglobin 29, Mean Corpuscular Hemoglobin Concent 34, Red Cell Distribution Width 16.5H, Platelet Count 113L, Mean Platelet Volume 11.8H, Neutrophils (%) (Auto) 84H, Lymphocytes (%) (Auto) 10L, Monocytes (%) (Auto) 6, Eosinophils (%) (Auto) 0, Basophils (%) (Auto) 0, Neutrophils # (Auto) 8.3H, Lymphocytes # (Auto) 1.0, Monocytes # (Auto) 0.6, Eosinophils # (Auto) 0.0, Basophils # (Auto) 0.0, Sodium Level 136, Potassium Level 4.4, Chloride Level 98, Carbon Dioxide Level 28, Anion Gap 10, Blood Urea Nitrogen 27H, Creatinine 0.68, Estimat Glomerular Filtration Rate > 60, BUN/ Creatinine Ratio 40, Glucose Level 109H, Calcium Level 8.5, Phosphorus Level 3.5 , Magnesium Level 2.7H 01/06/19 05:10: White Blood Count 12.8H, Red Blood Count 5.20, Hemoglobin 15.4, Hematocrit 46, Mean Corpuscular Volume 88, Mean Corpuscular Hemoglobin 30, Mean Corpuscular Hemoglobin Concent 34, Red Cell Distribution Width 16.5H, Platelet Count 106L, Mean Platelet Volume 11.5H, Neutrophils (%) (Auto) 77H, Lymphocytes (%) (Auto) 15, Monocytes (%) (Auto) 8, Eosinophils (%) (Auto) 0, Basophils (%) (Auto) 0, Neutrophils # (Auto) 9.8H, Lymphocytes # (Auto) 1.9, Monocytes # (Auto) 1.0, Eosinophils # (Auto) 0.0, Basophils # (Auto) 0.0, Sodium Level 137, Potassium Level 3.7, Chloride Level 102, Carbon Dioxide Level 27, Anion Gap 8, Blood Urea Nitrogen 30H, Creatinine 0.82, Estimat Glomerular Filtration Rate > 60, BUN/ Creatinine Ratio 37, Glucose Level 112H, Calcium Level 8.1L, Phosphorus Level 3.1, Magnesium Level 2.4, B-Type Natriuretic Peptide 60.7 Microbiology 12/27/18 Blood Culture - Final, Complete No growth 12/30/18 Mycobacterial Culture - Preliminary, Resulted 12/27/18 Urine Culture - Final, Complete NO GROWTH Laboratory Tests 12/27/18 12:10 12/27/18 16:50 12/28/18 03:45 12/29/18 03:35 12/30/18 03:05 12/31/18 03:18 01/01/19 04:27 01/02/19 04:00 01/03/19 05:30 01/04/19 05:55 01/05/19 05:08 01/06/19 05:10 Pending Labs Microbiology Date/Time Source Procedure Growth Status 12/27/18 12:40 Peripheral Rt Ac Blood Culture - Final No growth Complete 12/27/18 12:10 Peripheral Lt Hand Blood Culture - Final No growth Complete 12/30/18 05:55 Bronchial Lavage (Bal) Left Upper Lobe Mycobacterial Culture - Preliminary Resulted 12/30/18 05:55 Bronchial Lavage (Bal) Left Upper Lobe Gram Stain - Final Resulted 12/30/18 05:55 Bronchial Culture - Final Enterobacter aerogenes Resulted 12/30/18 05:55 Bronchial Lavage (Bal) Left Upper Lobe Fungal Culture 1 - Preliminary Resulted 12/30/18 05:54 Bronch Washings Bilateral Mycobacterial Culture - Preliminary Resulted 12/30/18 05:54 Bronch Washings Bilateral Gram Stain - Final Resulted 12/30/18 05:54 Bronchial Culture - Final Enterobacter aerogenes Resulted 12/30/18 05:54 Bronch Washings Bilateral Fungal Culture 1 - Preliminary Resulted 12/27/18 19:00 Sputum Induced Gram Stain - Final Complete 12/27/18 19:00 Sputum Culture - Final Corynebacterium striatum See Comments Complete 12/27/18 17:05 Nasal MRSA Screen - Final MRSA not isolated Complete 12/27/18 12:32 Nasopharynx Influenza Types A,B Antigen (TESSY) - Final Complete 12/27/18 12:32 Urine Straight Cath, In/Out Urine Culture - Final NO GROWTH Complete Laboratory Tests 12/27/18 12:10: White Blood Count 13.7, Red Blood Count 5.35, Hemoglobin 15.6, Hematocrit 48, Mean Corpuscular Volume 90, Mean Corpuscular Hemoglobin 29, Mean Corpuscular Hemoglobin Concent 33, Red Cell Distribution Width 18.4, Platelet Count 80, Mean Platelet Volume 10.6, Neutrophils (%) (Auto) 87, Lymphocytes (%) (Auto) 5, Monocytes (%) (Auto) 8, Eosinophils (%) (Auto) 0, Basophils (%) (Auto) 0, Neutrophils # (Auto) 11.9, Lymphocytes # (Auto) 0.7, Monocytes # (Auto) 1.1, Eosinophils # (Auto) 0.0, Basophils # (Auto) 0.0, Neutrophils % (Manual) 66, Lymphocytes % (Manual) 2, Monocytes % (Manual) 10, Band Neutrophils 22, Toxic Granulation 1+, Blood Morphology Comment NORMAL, Prothrombin Time 13.6, INR Comment 1.0, Activated Partial Thromboplast Time 37, Sodium Level 137, Potassium Level 4.7, Chloride Level 97, Carbon Dioxide Level 29, Anion Gap 11, Blood Urea Nitrogen 33, Creatinine 1.14, Estimat Glomerular Filtration Rate > 60 , BUN/Creatinine Ratio 29, Glucose Level 114, Lactic Acid Level 1.42, Calcium Level 8.7, Corrected Calcium 8.9, Total Bilirubin 0.7, Aspartate Amino Transf ( AST/SGOT) 47, Alanine Aminotransferase (ALT/SGPT) 27, Alkaline Phosphatase 55, Troponin I 0.554, C-Reactive Protein High Sensitivity 16.78, B-Type Natriuretic Peptide 836.1, Total Protein 7.1, Albumin 3.8 12/27/18 12:32: Urine Color YELLOW, Urine Clarity SLIGHTLY CLOUDY, Urine pH 5, Urine Specific [place] 1.020, Urine Protein 2+, Urine Glucose (UA) NEGATIVE, Urine Ketones NEGATIVE, Urine Nitrite NEGATIVE, Urine Bilirubin NEGATIVE, Urine Urobilinogen NORMAL, Urine Leukocyte Esterase NEGATIVE, Urine RBC (Auto) 2+, Urine RBC NONE, Urine WBC NONE, Urine Squamous Epithelial Cells NONE, Urine Crystals NONE, Urine Bacteria TRACE, Urine Casts NONE, Urine Mucus NEGATIVE, Urine Culture Indicated NO 12/27/18 12:40: Blood Gas Puncture Site LT RAD, Blood Gas Patient Temperature 103.4, Arterial Blood pH 7.26, Arterial Blood Partial Pressure CO2 78, Arterial Blood Partial Pressure O2 147, Arterial Blood HCO3 32, Arterial Blood Total CO2 34.4, Arterial Blood Oxygen Saturation 99, Arterial Blood Base Excess 6.1, Jeff Test YES-POS, Blood Gas Ventilator Setting NO, Blood Gas Inspired Oxygen BIPAP 90% 12/27/18 13:25: Blood Gas Puncture Site LT RAD, Blood Gas Patient Temperature 102, Arterial Blood pH 7.28, Arterial Blood Partial Pressure CO2 73, Arterial Blood Partial Pressure O2 77, Arterial Blood HCO3 32, Arterial Blood Total CO2 34.3, Arterial Blood Oxygen Saturation 90, Arterial Blood Base Excess 6.1, Jeff Test YES-POS, Blood Gas Ventilator Setting NO, Blood Gas Inspired Oxygen BIPAP 70% 12/27/18 16:14: Lab Scanned Report Referred Lab Report 12/27/18 16:50: Sodium Level 137, Potassium Level 5.4, Chloride Level 102, Carbon Dioxide Level 24, Anion Gap 11, Blood Urea Nitrogen 31, Creatinine 1.15, Estimat Glomerular Filtration Rate > 60, BUN/Creatinine Ratio 27, Glucose Level 142, Lactic Acid Level 0.92, Calcium Level 7.8, Corrected Calcium 8.2, Total Bilirubin 0.7, Aspartate Amino Transf (AST/SGOT) 46, Alanine Aminotransferase (ALT/SGPT) 26, Alkaline Phosphatase 48, Total Protein 6.5, Albumin 3.5, Triglycerides Level 107 12/27/18 17:00: Blood Gas Puncture Site LT RAD, Blood Gas Patient Temperature 97.0, Arterial Blood pH 7.21, Arterial Blood Partial Pressure CO2 78, Arterial Blood Partial Pressure O2 126, Arterial Blood HCO3 30, Arterial Blood Total CO2 32.8, Arterial Blood Oxygen Saturation 98, Arterial Blood Base Excess 2.8, Jeff Test YES-POS, Blood Gas Ventilator Setting NO, Blood Gas Inspired Oxygen 70% BIPAP 12/27/18 20:25: Blood Gas Puncture Site LEFT RADIAL, Blood Gas Patient Temperature 96.6, Arterial Blood pH 7.24, Arterial Blood Partial Pressure CO2 63, Arterial Blood Partial Pressure O2 291, Arterial Blood HCO3 27, Arterial Blood Total CO2 28.8, Arterial Blood Oxygen Saturation 100, Arterial Blood Base Excess 0.0, Jeff Test YES-POS, Blood Gas Ventilator Setting YES, Blood Gas Inspired Oxygen 100% 12/27/18 23:38: Glucometer 189 12/28/18 03:45: White Blood Count 15.1, Red Blood Count 5.33, Hemoglobin 15.4, Hematocrit 49, Mean Corpuscular Volume 91, Mean Corpuscular Hemoglobin 29, Mean Corpuscular Hemoglobin Concent 32, Red Cell Distribution Width 18.7, Platelet Count 99, Mean Platelet Volume 12.3, Neutrophils (%) (Auto) 92, Lymphocytes (%) (Auto) 5, Monocytes (%) (Auto) 3, Eosinophils (%) (Auto) 0, Basophils (%) (Auto) 0, Neutrophils # (Auto) 13.9, Lymphocytes # (Auto) 0.8, Monocytes # (Auto) 0.4, Eosinophils # (Auto) 0.0, Basophils # (Auto) 0.0, Blood Gas Puncture Site LEFT RADIAL, Blood Gas Patient Temperature 98.4, Arterial Blood pH 7.30, Arterial Blood Partial Pressure CO2 50, Arterial Blood Partial Pressure O2 91, Arterial Blood HCO3 24, Arterial Blood Total CO2 25.1, Arterial Blood Oxygen Saturation 97, Arterial Blood Base Excess -2.0, Jeff Test YES-POS, Blood Gas Ventilator Setting YES, Blood Gas Inspired Oxygen 50%, Sodium Level 141, Potassium Level 4.3, Chloride Level 108, Carbon Dioxide Level 20, Anion Gap 13, Blood Urea Nitrogen 29, Creatinine 1.11, Estimat Glomerular Filtration Rate > 60, BUN/ Creatinine Ratio 26, Glucose Level 199, Calcium Level 7.5, Phosphorus Level 1.5 , Magnesium Level 2.0, Troponin I 1.189 12/28/18 05:03: Glucometer 182 12/28/18 13:02: Glucometer 174 12/28/18 15:35: Vancomycin Level Trough 23.4 12/28/18 17:59: Glucometer 155 12/28/18 23:10: Vancomycin Level Trough 16.1 12/29/18 00:37: Glucometer 175 12/29/18 03:35: White Blood Count 12.1, Red Blood Count 5.09, Hemoglobin 14.9, Hematocrit 46, Mean Corpuscular Volume 91, Mean Corpuscular Hemoglobin 29, Mean Corpuscular Hemoglobin Concent 32, Red Cell Distribution Width 19.1, Platelet Count 95, Mean Platelet Volume 11.3, Neutrophils (%) (Auto) 91, Lymphocytes (%) (Auto) 5, Monocytes (%) (Auto) 4, Eosinophils (%) (Auto) 0, Basophils (%) (Auto) 0, Neutrophils # (Auto) 11.1, Lymphocytes # (Auto) 0.6, Monocytes # (Auto) 0.5, Eosinophils # (Auto) 0.0, Basophils # (Auto) 0.0, Sodium Level 148, Potassium Level 3.5, Chloride Level 115, Carbon Dioxide Level 22, Anion Gap 11, Blood Urea Nitrogen 19, Creatinine 0.97, Estimat Glomerular Filtration Rate > 60, BUN/ Creatinine Ratio 20, Glucose Level 202, Calcium Level 7.8, Phosphorus Level 1.2 , Magnesium Level 2.1, Troponin I 1.114, B-Type Natriuretic Peptide 79.6 12/29/18 03:40: Blood Gas Puncture Site LEFT ART LINE, Blood Gas Patient Temperature 99.9, Arterial Blood pH 7.30, Arterial Blood Partial Pressure CO2 51, Arterial Blood Partial Pressure O2 97, Arterial Blood HCO3 24, Arterial Blood Total CO2 25.9, Arterial Blood Oxygen Saturation 97, Arterial Blood Base Excess -1.0, Jeff Test ART LINE, Blood Gas Ventilator Setting YES, Blood Gas Inspired Oxygen 50% 12/29/18 11:37: Glucometer 178 12/29/18 17:34: Glucometer 131 12/29/18 17:50: Triglycerides Level 321 12/30/18 00:10: Glucometer 138 12/30/18 03:05: White Blood Count 10.2, Red Blood Count 5.03, Hemoglobin 14.7, Hematocrit 46, Mean Corpuscular Volume 91, Mean Corpuscular Hemoglobin 29, Mean Corpuscular Hemoglobin Concent 32, Red Cell Distribution Width 19.6, Platelet Count 95, Mean Platelet Volume 11.4, Neutrophils (%) (Auto) 88, Lymphocytes (%) (Auto) 7, Monocytes (%) (Auto) 5, Eosinophils (%) (Auto) 0, Basophils (%) (Auto) 0, Neutrophils # (Auto) 8.9, Lymphocytes # (Auto) 0.7, Monocytes # (Auto) 0.5, Eosinophils # (Auto) 0.0, Basophils # (Auto) 0.0, Blood Gas Puncture Site ART LINE, Blood Gas Patient Temperature 101.6, Arterial Blood pH 7.39, Arterial Blood Partial Pressure CO2 49, Arterial Blood Partial Pressure O2 75, Arterial Blood HCO3 28, Arterial Blood Total CO2 29.4, Arterial Blood Oxygen Saturation 94, Arterial Blood Base Excess 3.7, Jeff Test ART LINE, Blood Gas Ventilator Setting YES, Blood Gas Inspired Oxygen 40%, Sodium Level 149, Potassium Level 4.0, Chloride Level 113, Carbon Dioxide Level 24, Anion Gap 12, Blood Urea Nitrogen 19, Creatinine 0.86, Estimat Glomerular Filtration Rate > 60, BUN/ Creatinine Ratio 22, Glucose Level 148, Calcium Level 7.6, Phosphorus Level 1.9 , Magnesium Level 1.7 12/30/18 05:55: Body Fluid Source BRONCH, Body Fluid Color PALE YELLOW, Body Fluid Appearance MOD CLDY, Body Fluid Polynuclear WBCs 94, Body Fluid Mononuclear WBCs 4, Body Fluid Lymphocytes 2, Body Fluid Other Cells 0 12/30/18 11:20: Glucometer 144 12/30/18 18:25: Glucometer 145 12/31/18 00:12: Glucometer 169 12/31/18 03:18: White Blood Count 9.6, Red Blood Count 5.15, Hemoglobin 15.2, Hematocrit 47, Mean Corpuscular Volume 91, Mean Corpuscular Hemoglobin 30, Mean Corpuscular Hemoglobin Concent 33, Red Cell Distribution Width 19.7, Platelet Count 89, Mean Platelet Volume 10.7, Neutrophils (%) (Auto) 84, Lymphocytes (%) (Auto) 9, Monocytes (%) (Auto) 7, Eosinophils (%) (Auto) 0, Basophils (%) (Auto) 0, Neutrophils # (Auto) 8.0, Lymphocytes # (Auto) 0.8, Monocytes # (Auto) 0.7, Eosinophils # (Auto) 0.0, Basophils # (Auto) 0.0, Blood Gas Puncture Site ART LINE, Blood Gas Patient Temperature 98.5, Arterial Blood pH 7.38, Arterial Blood Partial Pressure CO2 49, Arterial Blood Partial Pressure O2 99, Arterial Blood HCO3 29, Arterial Blood Total CO2 30.1, Arterial Blood Oxygen Saturation 98, Arterial Blood Base Excess 3.8, Jeff Test ART LINE, Blood Gas Ventilator Setting YES, Blood Gas Inspired Oxygen 60%, Sodium Level 148, Potassium Level 4.4, Chloride Level 111, Carbon Dioxide Level 25, Anion Gap 12, Blood Urea Nitrogen 24, Creatinine 0.77, Estimat Glomerular Filtration Rate > 60, BUN/ Creatinine Ratio 31, Glucose Level 171, Calcium Level 7.7, Phosphorus Level 2.6 , Magnesium Level 2.4, B-Type Natriuretic Peptide 104.8 12/31/18 11:35: Glucometer 120 12/31/18 16:59: Glucometer 139 12/31/18 19:30: Triglycerides Level 574 01/01/19 00:55: Glucometer 128 01/01/19 04:27: White Blood Count 9.0, Red Blood Count 5.18, Hemoglobin 15.1, Hematocrit 47, Mean Corpuscular Volume 90, Mean Corpuscular Hemoglobin 29, Mean Corpuscular Hemoglobin Concent 32, Red Cell Distribution Width 19.0, Platelet Count 84, Mean Platelet Volume 11.0, Neutrophils (%) (Auto) 85, Lymphocytes (%) (Auto) 9, Monocytes (%) (Auto) 5, Eosinophils (%) (Auto) 0, Basophils (%) (Auto) 1, Neutrophils # (Auto) 7.7, Lymphocytes # (Auto) 0.8, Monocytes # (Auto) 0.4, Eosinophils # (Auto) 0.0, Basophils # (Auto) 0.1, Blood Gas Puncture Site L RAD , Blood Gas Patient Temperature 97.9, Arterial Blood pH 7.45, Arterial Blood Partial Pressure CO2 41, Arterial Blood Partial Pressure O2 78, Arterial Blood HCO3 28, Arterial Blood Total CO2 29.4, Arterial Blood Oxygen Saturation 96, Arterial Blood Base Excess 4.2, Jeff Test ART LINE, Blood Gas Ventilator Setting YES, Blood Gas Inspired Oxygen 45%, Sodium Level 140, Potassium Level 4.8, Chloride Level 106, Carbon Dioxide Level 24, Anion Gap 10, Blood Urea Nitrogen 25, Creatinine 0.73, Estimat Glomerular Filtration Rate > 60, BUN/ Creatinine Ratio 34, Glucose Level 168, Calcium Level 7.8, Phosphorus Level 3.7 , Magnesium Level 2.5 01/01/19 09:35: Vancomycin Level Trough 11.0 01/01/19 11:09: Blood Gas Puncture Site LEFT RADIAL, Blood Gas Patient Temperature 96.6, Arterial Blood pH 7.40, Arterial Blood Partial Pressure CO2 52, Arterial Blood Partial Pressure O2 66, Arterial Blood HCO3 32, Arterial Blood Total CO2 33.5, Arterial Blood Oxygen Saturation 93, Arterial Blood Base Excess 6.8, Jeff Test NA, Blood Gas Ventilator Setting YES, Blood Gas Inspired Oxygen 45% 01/01/19 13:22: Glucometer 161 01/01/19 20:51: Glucometer 141 01/02/19 04:00: White Blood Count 12.2, Red Blood Count 5.35, Hemoglobin 15.5, Hematocrit 48, Mean Corpuscular Volume 90, Mean Corpuscular Hemoglobin 29, Mean Corpuscular Hemoglobin Concent 32, Red Cell Distribution Width 18.1, Platelet Count 71, Mean Platelet Volume 12.5, Neutrophils (%) (Auto) 89, Lymphocytes (%) (Auto) 7, Monocytes (%) (Auto) 4, Eosinophils (%) (Auto) 0, Basophils (%) (Auto) 0, Neutrophils # (Auto) 10.8, Lymphocytes # (Auto) 0.9, Monocytes # (Auto) 0.5, Eosinophils # (Auto) 0.0, Basophils # (Auto) 0.0, Neutrophils % (Manual) 91, Lymphocytes % (Manual) 5, Monocytes % (Manual) 3, Eosinophils % (Manual) 1, Sodium Level 141, Potassium Level 5.0, Chloride Level 99, Carbon Dioxide Level 32, Anion Gap 10, Blood Urea Nitrogen 23, Creatinine 0.71, Estimat Glomerular Filtration Rate > 60, BUN/Creatinine Ratio 32, Glucose Level 120, Calcium Level 8.2, Phosphorus Level 4.0, Magnesium Level 2.3 01/02/19 16:19: Glucometer 129 01/02/19 20:08: Glucometer 127 01/03/19 05:30: White Blood Count 9.8, Red Blood Count 5.78, Hemoglobin 16.8, Hematocrit 50, Mean Corpuscular Volume 87, Mean Corpuscular Hemoglobin 29, Mean Corpuscular Hemoglobin Concent 34, Red Cell Distribution Width 16.7, Platelet Count 73, Mean Platelet Volume 11.6, Neutrophils (%) (Auto) 84, Lymphocytes (%) (Auto) 8, Monocytes (%) (Auto) 8, Eosinophils (%) (Auto) 0, Basophils (%) (Auto) 0, Neutrophils # (Auto) 8.2, Lymphocytes # (Auto) 0.7, Monocytes # (Auto) 0.8, Eosinophils # (Auto) 0.0, Basophils # (Auto) 0.0, Sodium Level 136, Potassium Level 4.3, Chloride Level 94, Carbon Dioxide Level 31, Anion Gap 11, Blood Urea Nitrogen 25, Creatinine 0.72, Estimat Glomerular Filtration Rate > 60, BUN/ Creatinine Ratio 35, Glucose Level 115, Calcium Level 8.6, Phosphorus Level 3.2 , Magnesium Level 2.5 01/03/19 05:32: Glucometer 111 01/03/19 11:39: Glucometer 119 01/03/19 16:07: Glucometer 139 01/04/19 05:55: White Blood Count 9.8, Red Blood Count 5.94, Hemoglobin 17.0, Hematocrit 51, Mean Corpuscular Volume 85, Mean Corpuscular Hemoglobin 29, Mean Corpuscular Hemoglobin Concent 34, Red Cell Distribution Width 16.4, Platelet Count 99, Mean Platelet Volume 11.7, Neutrophils (%) (Auto) 82, Lymphocytes (%) (Auto) 10 , Monocytes (%) (Auto) 9, Eosinophils (%) (Auto) 0, Basophils (%) (Auto) 0, Neutrophils # (Auto) 8.0, Lymphocytes # (Auto) 0.9, Monocytes # (Auto) 0.8, Eosinophils # (Auto) 0.0, Basophils # (Auto) 0.0, Sodium Level 135, Potassium Level 4.2, Chloride Level 96, Carbon Dioxide Level 29, Anion Gap 10, Blood Urea Nitrogen 25, Creatinine 0.73, Estimat Glomerular Filtration Rate > 60, BUN/ Creatinine Ratio 34, Glucose Level 125, Calcium Level 8.7, Phosphorus Level 3.4 , Magnesium Level 2.4 01/05/19 05:08: White Blood Count 9.8, Red Blood Count 5.59, Hemoglobin 16.1, Hematocrit 48, Mean Corpuscular Volume 86, Mean Corpuscular Hemoglobin 29, Mean Corpuscular Hemoglobin Concent 34, Red Cell Distribution Width 16.5, Platelet Count 113, Mean Platelet Volume 11.8, Neutrophils (%) (Auto) 84, Lymphocytes (%) (Auto) 10 , Monocytes (%) (Auto) 6, Eosinophils (%) (Auto) 0, Basophils (%) (Auto) 0, Neutrophils # (Auto) 8.3, Lymphocytes # (Auto) 1.0, Monocytes # (Auto) 0.6, Eosinophils # (Auto) 0.0, Basophils # (Auto) 0.0, Sodium Level 136, Potassium Level 4.4, Chloride Level 98, Carbon Dioxide Level 28, Anion Gap 10, Blood Urea Nitrogen 27, Creatinine 0.68, Estimat Glomerular Filtration Rate > 60, BUN/ Creatinine Ratio 40, Glucose Level 109, Calcium Level 8.5, Phosphorus Level 3.5 , Magnesium Level 2.7 01/06/19 05:10: White Blood Count 12.8, Red Blood Count 5.20, Hemoglobin 15.4, Hematocrit 46, Mean Corpuscular Volume 88, Mean Corpuscular Hemoglobin 30, Mean Corpuscular Hemoglobin Concent 34, Red Cell Distribution Width 16.5, Platelet Count 106, Mean Platelet Volume 11.5, Neutrophils (%) (Auto) 77, Lymphocytes (%) (Auto) 15 , Monocytes (%) (Auto) 8, Eosinophils (%) (Auto) 0, Basophils (%) (Auto) 0, Neutrophils # (Auto) 9.8, Lymphocytes # (Auto) 1.9, Monocytes # (Auto) 1.0, Eosinophils # (Auto) 0.0, Basophils # (Auto) 0.0, Sodium Level 137, Potassium Level 3.7, Chloride Level 102, Carbon Dioxide Level 27, Anion Gap 8, Blood Urea Nitrogen 30, Creatinine 0.82, Estimat Glomerular Filtration Rate > 60, BUN/ Creatinine Ratio 37, Glucose Level 112, Calcium Level 8.1, Phosphorus Level 3.1 , Magnesium Level 2.4, B-Type Natriuretic Peptide 60.7 Discussion & Recommendations Patient feeling much better on discharge Discharge Home Medications: Active Scripts Active Cefdinir 300 Mg Capsule 300 Mg PO BID 10 Days Reported Aripiprazole 20 Mg Tablet 20 Mg PO DAILY Debrox (Carbamide Peroxide) 15 Ml Drops 5 Drops EACH EAR Q12H PRN Multi-Vitamin Daily (Multivitamin) 1 Each Tablet 1 Tab PO DAILY Zofran (Ondansetron HCl) 4 Mg Tab 4 Mg PO Q4H PRN Refresh Tears (Carboxymethylcellulose Sodium) 15 Ml Drops 1 Drop OU Q4H PRN Clonazepam 0.5 Mg Tablet 0.5 Mg PO BID Divalproex Sodium 125 Mg Cap.sprink 125 Mg PO TID Benzonatate 200 Mg Capsule 200 Mg PO Q8H PRN Symbicort 160-4.5 Mcg Inhaler (Budesonide/Formoterol Fumarate) 10.2 Gm Hfa.aer.ad 2 Puff IH BID Protonix (Pantoprazole Sodium) 40 Mg Tablet.dr 40 Mg PO DAILY Metoprolol Tartrate 25 Mg Tablet 25 Mg PO BID HOLD FOR SYSTOLIC BP < 100 Lisinopril 2.5 Mg Tablet 2.5 Mg PO HS Lexapro (Escitalopram Oxalate) 20 Mg Tablet 40 Mg PO DAILY TAKES 2 (20MG) TABLETS Lasix (Furosemide) 20 Mg Tablet 20 Mg PO DAILY Iprat-Albut 0.5-3(2.5) mg/3 ml (Ipratropium/Albuterol Sulfate) 3 Ml Ampul.neb 3 Ml NEB Q6H PRN Aspirin EC (Aspirin) 81 Mg Tablet.dr 81 Mg PO DAILY Tylenol (Acetaminophen) 325 Mg Tablet 650 Mg PO Q6H PRN TAKES 2 (325MG) TABLETS Instructions to patient/family Please see electronic discharge instructions given to patient. Clinical Quality Measures DVT/VTE Risk/Contraindication: Risk Factor Score Per Nursin RFS Level Per Nursing on Admit: 4+=Very High ART CASANOVA DO Jan 07, 2019 07:25
== END 2019-01-06 16:30 | DRG 870 ==
LOC: EDUNIT# 12:08 → ER 12:09 → ICU 16:14 → 4TH 01-02 14:47
PROVIDERS: ADMIT Internal Medicine; ATTEND Internal Medicine
PROC: 5A1955Z Respiratory Ventilation, Greater than 96 Consecutive Hours (ICD-10-PCS; 2018-12-27)
PROC: 0BH17EZ Insertion of Endotracheal Airway into Trachea, Via Natural or Artificial Opening (ICD-10-PCS; 2018-12-27)
PROC: 0BC88ZZ Extirpation of Matter from Left Upper Lobe Bronchus, Via Natural or Artificial Opening Endoscopic (ICD-10-PCS; principal; 2018-12-30)
PROC: 0BB88ZX Excision of Left Upper Lobe Bronchus, Via Natural or Artificial Opening Endoscopic, Diagnostic (ICD-10-PCS; 2018-12-30)
PROC: 0BD88ZX Extraction of Left Upper Lobe Bronchus, Via Natural or Artificial Opening Endoscopic, Diagnostic (ICD-10-PCS; 2018-12-30)
DX: A41.9 Sepsis, unspecified organism (principal); R65.21 Severe sepsis with septic shock; J18.1 Lobar pneumonia, unspecified organism; J96.01 Acute respiratory failure with hypoxia; J96.02 Acute respiratory failure with hypercapnia; J44.1 Chronic obstructive pulmonary disease with (acute) exacerbation; J44.0 Chronic obstructive pulmonary disease with (acute) lower respiratory infection; E87.2 Acidosis; J98.11 Atelectasis; I21.A1 Myocardial infarction type 2; J98.09 Other diseases of bronchus, not elsewhere classified; R79.89 Other specified abnormal findings of blood chemistry; R59.0 Localized enlarged lymph nodes; E83.39 Other disorders of phosphorus metabolism; I10 Essential (primary) hypertension; K21.9 Gastro-esophageal reflux disease without esophagitis; B19.20 Unspecified viral hepatitis C without hepatic coma; F41.9 Anxiety disorder, unspecified; Z86.59 Personal history of other mental and behavioral disorders; Z85.038 Personal history of other malignant neoplasm of large intestine; K80.20 Calculus of gallbladder without cholecystitis without obstruction; Z82.49 Family history of ischemic heart disease and other diseases of the circulatory system; F17.210 Nicotine dependence, cigarettes, uncomplicated; B96.89 Other specified bacterial agents as the cause of diseases classified elsewhere; I65.23 Occlusion and stenosis of bilateral carotid arteries; D69.6 Thrombocytopenia, unspecified; F31.9 Bipolar disorder, unspecified; E83.42 Hypomagnesemia; Z16.12 Extended spectrum beta lactamase (ESBL) resistance
CPT/HCPCS: 36415; 36600; 51702; 71045; 71046; 71275; 80048; 80053; 80202; 81000; 82805; 82962; 83605; 83735; 83880; 84100; 84478; 84484; 85007; 85025; 85027; 85610; 85730; 86141; 87015; 87040; 87070; 87077; 87081; 87088; 87101; 87116; 87186; 87205; 87206; 87804; 89051; 90471; 90686; 93005; 93041; 94002; 94003; 94640; 94660; 94664; 94760; 94799; 96361; 96365; 96375

== ENCOUNTER 2019-02-03 09:38 | Inpatient (IN) | payer MEDICAID ==
[~2019-02-03] VITALS: Ht 167.6 cm; Wt 92.5 kg
[~2019-02-03 09:38] MED LIST changes: +ARIP20TA9 PO; +CARB15DR87 EACH EAR; +MULT-974 PO
[2019-02-03 10:21] LABS: BASOPHILS % (AUTO) 1 % (0-10); EOSINOPHILS # (AUTO) 0.1 10^3/uL (0.0-0.3); EOSINOPHILS % (AUTO) 1 % (0-10); HEMATOCRIT 53 % (40-54); HEMOGLOBIN 16.3 G/DL (13.3-17.7); LYMPHOCYTES # (AUTO) 1.7 X 10^3 (1.0-4.0); LYMPHOCYTES % (AUTO) 22 % (12-44); MEAN CORPUSCULAR HEMOGLOBIN 28 PG (25-34); MEAN CORPUSCULAR HGB CONC 31 G/DL (32-36); MEAN CORPUSCULAR VOLUME 92 FL (80-99); MEAN PLATELET VOLUME 10.8 FL (7.4-10.4); MONOCYTES % (AUTO) 13 % (0-12); NEUTROPHILS # (AUTO) 5.1 X 10^3 (1.8-7.8); NEUTROPHILS % (AUTO) 64 % (42-75); PLATELET COUNT 183 10^3/uL (130-400); RED CELL DISTRIBUTION WIDTH 17.2 % (10.0-14.5)
[2019-02-03] MEDS ORDERED: RT-ALBUTEROL/IPRATROPIUM 3 ML (DUONEB) VIAL INH ONE (10:30)
[2019-02-03] MEDS ORDERED: methylPREDNISolone 125 MG (Solu-MEDROL) VIAL IV STA (10:36)
[2019-02-03 10:42] LABS: ALANINE AMINOTRANSFERASE 19 U/L (0-55); ALBUMIN 3.7 GM/DL (3.2-4.5); ALKALINE PHOSPHATASE 78 U/L (40-136); BILIRUBIN,TOTAL 0.5 MG/DL (0.1-1.0); BUN/CREATININE RATIO 11; CALCIUM 9.3 MG/DL (8.5-10.1); CARBON DIOXIDE 36 MMOL/L (21-32); CHLORIDE 97 MMOL/L (98-107); CREATININE SERUM 0.76 MG/DL (0.60-1.30); GFR ESTIMATED > 60; GLUCOSE 98 MG/DL (70-105); POTASSIUM 4.6 MMOL/L (3.6-5.0); SODIUM 141 MMOL/L (135-145)
[2019-02-03 10:44] LABS: INR 0.9 (0.8-1.4)
--- NOTE | 2019-02-03 11:17 | ED Respiratory ---
General Chief Complaint: Respiratory Problems Stated Complaint: OXYGEN LOW Nursing Triage Note: Pt sent to ED from Dr. Redmond's pulmonology clinic. Pt reportedly had o2 saturation in the upper 70s on arrival. pt typically wears 2L o2, clinic had to place pt on 6L o2. Initial o2 saturation in ED at 90% on 4L. Pt is a resident of [facility] Source: patient Exam Limitations: no limitations History of Present Illness Date Seen by Provider: Feb 03, 2019 Time Seen by Provider: 10:20 Initial Comments Here from the pulmonary clinic with report of O2 sat of 79% on arrival with oxygen at 2 L which is his normal. They bumped him up to 3 L it came up to 82%. 6 L did bring his oxygen to greater than 90%. This is certainly not his norm. Patient has history of noncompliance with meds and continues to smoke. He denies fever or chills. Does have cough and poor cough effort. He does reside in a senior living. Timing/Duration: yesterday, getting worse Severity: moderate Prior Episodes/Possible Cause: occasional episodes Modifying Factors: Improves With Albuterol Inhaler, Improves With Oxygen Associated Symptoms: cough; No fever/chills, No nasal congestion; shortness of breath, wheezing Allergies and Home Medications Allergies Coded Allergies: No Known Drug Allergies (Unverified , 12/07/16) Home Medications Acetaminophen 325 Mg Tablet, 650 MG PO Q6H PRN for PAIN-MILD, (Reported) TAKES 2 (325MG) TABLETS Aripiprazole 20 Mg Tablet, 20 MG PO DAILY, (Reported) Aspirin 81 Mg Tablet.dr, 81 MG PO DAILY, (Reported) Benzonatate 200 Mg Capsule, 200 MG PO Q8H PRN for COUGH, (Reported) Budesonide/Formoterol Fumarate 10.2 Gm Hfa.aer.ad, 2 PUFF IH BID, (Reported) Carbamide Peroxide 15 Ml Drops, 5 DROPS EACH EAR Q12H PRN for WAX BUILD UP, ( Reported) Carboxymethylcellulose Sodium 15 Ml Drops, 1 DROP OU Q4H PRN for DRY EYES, ( Reported) Cefdinir 300 Mg Capsule, 300 MG PO BID Prescribed by: CANDY SEVILLA on 01/06/19 1116 Clonazepam 0.5 Mg Tablet, 0.5 MG PO BID, (Reported) Divalproex Sodium 125 Mg Cap.sprink, 125 MG PO TID, (Reported) Escitalopram Oxalate 20 Mg Tablet, 40 MG PO DAILY, (Reported) TAKES 2 (20MG) TABLETS Furosemide 20 Mg Tablet, 20 MG PO DAILY, (Reported) Ipratropium/Albuterol Sulfate 3 Ml Ampul.neb, 3 ML NEB Q6H PRN for SHORTNESS OF BREATH, (Reported) Lisinopril 2.5 Mg Tablet, 2.5 MG PO HS, (Reported) Metoprolol Tartrate 25 Mg Tablet, 25 MG PO BID, (Reported) HOLD FOR SYSTOLIC BP < 100 Multivitamin 1 Each Tablet, 1 TAB PO DAILY, (Reported) Ondansetron HCl 4 Mg Tab, 4 MG PO Q4H PRN for NAUSEA/VOMITING-1ST LINE, ( Reported) Pantoprazole Sodium 40 Mg Tablet.dr, 40 MG PO DAILY, (Reported) Patient Home Medication List Home Medication List Reviewed: Yes Review of Systems Review of Systems Constitutional: see HPI; No chills, No fever EENTM: no symptoms reported Respiratory: see HPI, cough, short of breath, wheezing Cardiovascular: no symptoms reported Gastrointestinal: no symptoms reported Genitourinary: no symptoms reported Skin: no symptoms reported All Other Systems Reviewed Negative Unless Noted: Yes Past Whjbhyz-Dqsegk-Gwilkq Hx Past Med/Social Hx: Reviewed Nursing Past Med/Soc Hx Patient Social History Alcohol Use: Denies Use Recreational Drug Use: No Smoking Status: Current Everyday Smoker Type Used: Cigarettes Recent Foreign Travel: No Contact w/Someone Who Travel: No Recent Infectious Disease Expo: No Recent Hopitalizations: No Immunizations Up To Date Tetanus Booster (TDap): Unknown Date of Influenza Vaccine: Jan 05, 2019 Seasonal Allergies Seasonal Allergies: No Past Medical History Surgeries: No Respiratory: Yes COPD Cardiac: Yes Hypertension Neurological: No Genitourinary: No Gastrointestinal: Yes Gastroesophageal Reflux, Hepatitis Musculoskeletal: No Endocrine: No HEENT: No Cancer: Yes Colon Psychosocial: Yes Anxiety, Violent Behavior, Depression Integumentary: No Blood Disorders: Yes (HEP C ) Family Medical History Reviewed Nursing Family Hx No Pertinent Family Hx Physical Exam Vital Signs - First Documented 02/03/19 12:23 FiO2 92 Capillary Refill : Less Than 3 Seconds Height: 5'6.00" Weight: 190lbs. 5.0oz. [id number]; 34.8 BMI Method:Stated General Appearance: WD/WN, no apparent distress HEENT: PERRL/EOMI, pharynx normal Neck: full range of motion, supple Respiratory: decreased breath sounds, crackles, wheezing Cardiovascular: regular rate, rhythm, no murmur Gastrointestinal: non tender, soft Extremities: non-tender, normal inspection Neurologic/Psychiatric: alert, oriented x 3 Skin: normal color, warm/dry Focused Exam Lactate Level 02/03/19 10:08: Lactic Acid Level 0.98 Lactic Acid Level Laboratory Tests Test 02/03/19 10:08 Lactic Acid Level 0.98 MMOL/L (0.50-2.00) Procedures/Interventions Date of ETT Placement: Dec 27, 2018 Time of ETT Placement: 1830 Progress/Results/Core Measures Suspected Sepsis Recent Fever Within 48 Hours: No Infection Criteria Present: Suspected New Infection New/Unexplained Altered Menta: No Sepsis Screen: No Definite Risk SIRS Temperature:98.4 Pulse: 81 Respiratory Rate: 18 Laboratory Tests 02/03/19 10:08: White Blood Count 8.0 Blood Pressure 123 /73 Mean: 90 02/03/19 10:08: Lactic Acid Level 0.98 Laboratory Tests 02/03/19 10:08: Creatinine 0.76, INR Comment 0.9, Platelet Count 183, Total Bilirubin 0.5 Results/Orders Lab Results Laboratory Tests Test 02/03/19 10:08 02/03/19 11:10 Range/Units White Blood Count 8.0 4.3-11.0 10^3/uL Red Blood Count 5.78 4.35-5.85 10^6/uL Hemoglobin 16.3 13.3-17.7 G/DL Hematocrit 53 40-54 % Mean Corpuscular Volume 92 80-99 FL Mean Corpuscular Hemoglobin 28 25-34 PG Mean Corpuscular Hemoglobin Concent 31 L 32-36 G/DL Red Cell Distribution Width 17.2 H 10.0-14.5 % Platelet Count 183 130-400 10^3/uL Mean Platelet Volume 10.8 H 7.4-10.4 FL Neutrophils (%) (Auto) 64 42-75 % Lymphocytes (%) (Auto) 22 12-44 % Monocytes (%) (Auto) 13 H 0-12 % Eosinophils (%) (Auto) 1 0-10 % Basophils (%) (Auto) 1 0-10 % Neutrophils # (Auto) 5.1 1.8-7.8 X 10^3 Lymphocytes # (Auto) 1.7 1.0-4.0 X 10^3 Monocytes # (Auto) 1.0 0.0-1.0 X 10^3 Eosinophils # (Auto) 0.1 0.0-0.3 10^3/uL Basophils # (Auto) 0.0 0.0-0.1 10^3/uL Prothrombin Time 12.0 L 12.2-14.7 SEC INR Comment 0.9 0.8-1.4 Activated Partial Thromboplast Time 30 24-35 SEC Sodium Level 141 135-145 MMOL/L Potassium Level 4.6 3.6-5.0 MMOL/L Chloride Level 97 L 98-107 MMOL/L Carbon Dioxide Level 36 H 21-32 MMOL/L Anion Gap 8 5-14 MMOL/L Blood Urea Nitrogen 8 7-18 MG/DL Creatinine 0.76 0.60-1.30 MG/DL Estimat Glomerular Filtration Rate > 60 BUN/Creatinine Ratio 11 Glucose Level 98 70-105 MG/DL Lactic Acid Level 0.98 0.50-2.00 MMOL/L Calcium Level 9.3 8.5-10.1 MG/DL Corrected Calcium 9.5 8.5-10.1 MG/DL Total Bilirubin 0.5 0.1-1.0 MG/DL Aspartate Amino Transf (AST/SGOT) 18 5-34 U/L Alanine Aminotransferase (ALT/SGPT) 19 0-55 U/L Alkaline Phosphatase 78 40-136 U/L C-Reactive Protein High Sensitivity 1.24 H 0.00-0.50 MG/DL Total Protein 7.0 6.4-8.2 GM/DL Albumin 3.7 3.2-4.5 GM/DL Urine Color YELLOW Urine Clarity CLEAR Urine pH 6 5-9 Urine Specific Pine 1.020 1.016-1.022 Urine Protein 1+ H NEGATIVE Urine Glucose (UA) NEGATIVE NEGATIVE Urine Ketones NEGATIVE NEGATIVE Urine Nitrite NEGATIVE NEGATIVE Urine Bilirubin NEGATIVE NEGATIVE Urine Urobilinogen NORMAL NORMAL MG/DL Urine Leukocyte Esterase 1+ H NEGATIVE Urine RBC (Auto) 2+ H NEGATIVE Urine RBC 2-5 H /HPF Urine WBC 0-2 /HPF Urine Squamous Epithelial Cells RARE /HPF Urine Crystals NONE /LPF Urine Bacteria TRACE /HPF Urine Casts NONE /LPF Urine Mucus SMALL H /LPF Urine Culture Indicated NO My Orders Orders - ALLIE FAITH MD Cbc With Automated Diff (02/03/19 10:15) Comprehensive Metabolic Panel (02/03/19 10:15) Hs C Reactive Protein (02/03/19 10:15) Chest 1 View, Ap/Pa Only (02/03/19 10:15) Blood Culture (02/03/19 10:18) Sputum Culture (02/03/19 10:18) Urinalysis (02/03/19 10:18) Urine Culture (02/03/19 10:18) Protime With Inr (02/03/19 10:18) Partial Thromboplastin Time (02/03/19 10:18) Vital Signs Adult Sepsis Patie Q15M (02/03/19 10:18) O2 (02/03/19 10:18) Remove Rings In Anticipation O (02/03/19 10:18) Lactic Acid Analyzer (02/03/19 10:18) Albuterol/Ipra Inhalation Soln (Duoneb I (02/03/19 10:30) Svn Small Volume Nebulizer (02/03/19 10:20) Methylprednisolone Sod Succ (Solu-Medrol (02/03/19 10:36) Albuterol Pre-Mix Nebs (Rt) (Proventil (02/03/19 12:02) Svn Small Volume Nebulizer (02/03/19 12:02) General/Regular (02/03/19 Lunch) Albuterol Pre-Mix Nebs (Rt) (Proventil (02/03/19 12:51) Ipratropium 0.02% Neb Solution (Atrovent (02/03/19 13:00) Svn Small Volume Nebulizer (02/03/19 12:51) Svn Small Volume Nebulizer (02/03/19 12:51) Medications Given in ED Current Medications Medications Dose Ordered Sig/Mi Route Start Time Stop Time Status Last Admin Dose Admin Albuterol/ Ipratropium 3 ml ONCE ONCE INH 02/03/19 10:30 02/03/19 10:31 DC 02/03/19 10:50 3 ML Ipratropium [place] 0.5 mg ONCE ONCE IH 02/03/19 13:00 02/03/19 13:01 DC 02/03/19 13:10 0.5 MG Vital Signs/I&O 02/03/19 02/03/19 02/03/19 02/03/19 09:40 09:40 10:52 12:23 Temp 98.4 Pulse 81 Resp 18 B/P (MAP) 123/73 (90) Pulse Ox 91 91 98 O2 Delivery Nasal Cannula Nasal Cannula Nasal Cannula Nasal Cannula O2 Flow Rate 4.00 4.00 5.00 5.00 FiO2 92 02/03/19 02/03/19 02/03/19 02/03/19 12:33 12:40 13:13 13:29 Pulse 71 Resp 18 B/P (MAP) 147/75 (99) Pulse Ox 89 96 95 96 O2 Delivery Nasal Cannula Nasal Cannula Nasal Cannula O2 Flow Rate 5.00 8.00 6.00 Capillary Refill : Less Than 3 Seconds Blood Pressure Mean: 90 Progress Note : Progress Note Seen and evaluated. IV, labs, blood cultures and lactic acid ordered. The DuoNeb ordered which did help. Solu-Medrol 125 mg IV. We will get a chest x- ray. Monitor patient. Patient has continued respiratory issues and requiring higher flow oxygen. Albuterol neb treatments 3 given. 1252: Continuous one- hour treatment ordered as patient is still requiring higher flow O2. 1407: Patient has findings consistent with COPD with acute exacerbation and hypoxia given increased oxygen requirement and increased work of breathing. Due to this , patient will need to be admitted and have continued aggressive RT therapy as well as IV steroids. I did discuss the case with Dr. Casanova and he agrees to admission. 1409: I did discuss the case with Dr. Redmond and he accepts patient in consult. Admit, inpatient status. Patient agrees with plan. Departure Communication (Admissions) Time/Spoke to Admitting Phy: 14:07 Time/Spoke to Consulting Phy: 14:09 Impression Primary Impression: COPD with acute exacerbation Additional Impression: Hypoxia Disposition: ADMITTED INPATIENT Condition: Stable Admissions Decision to Admit Reason: Admit from ER (General) Decision to Admit/Date: Feb 03, 2019 Time/Decision to Admit Time: 14:07 Departure-Patient Inst. Referrals: ART CASANOVA DO (PCP/Family) Primary Care Physician ALLIE FAITH MD Feb 03, 2019 11:17
--- NOTE | 2019-02-03 11:24 | Diagnostic Imaging Report ---
Clinical indication: Patient oxygen saturations in upper 70s on arrival. Patient sent to emergency room from Dr. Redmond's pulmonary clinic. Exam: Portable chest x-ray upright view. Comparisons: Chest x-ray dated 01/05/2019. Findings: There is slight increased airspace opacities in the periphery of the right midlung field which may represent lung infiltrate. Otherwise, stable chronic lung findings with increased lung markings most pronounced in both lung bases. Stable pleural thickening in the lateral right lung base. There is mild cardiomegaly. There is no significant pulmonary vascular congestion. There are old healed right rib fractures again seen. Impression: 1: Concern for subtle infiltrate in the periphery of the right midlung field. 2: Otherwise stable chest x-ray exam. 3: Mild cardiomegaly with no significant pulmonary vascular congestion. Dictated by: Dictated on workstation # [id number]
[2019-02-03 11:31] LABS: BILIRUBIN,URINE NEGATIVE (NEGATIVE); GLUCOSE, URINE (UA) NEGATIVE (NEGATIVE); KETONES,URINE NEGATIVE (NEGATIVE); LEUKOCYTE ESTERASE ,URINE 1+ (NEGATIVE); NITRITE,URINE NEGATIVE (NEGATIVE); PH,URINE 6 (5-9); PROTEIN,URINE 1+ (NEGATIVE); UROBILINOGEN,URINE NORMAL (NORMAL)
[2019-02-03 11:49] LABS: BACTERIA,URINE TRACE /HPF; CLARITY,URINE CLEAR; COLOR,URINE YELLOW; SQUAMOUS EPITHELIAL CELL,UR RARE /HPF; WBC,URINE 0-2 /HPF
[2019-02-03] MEDS ORDERED: RT-ALBUTEROL SULF 2.5 MG/3 ML PRE-MIX VIAL INH STA ×2 (12:02→12:51)
[2019-02-03] MEDS ORDERED: RT-IPRATROPIUM (ATROVENT) 0.5MG/2.5ML AMP IH ONE (13:00)
--- NOTE | 2019-02-03 13:25 | NUR ---
REPORT TO REYNA WATT AT THIS TIME. CARE TURNED OVER.
[2019-02-03 13:29] VITALS: BP 147/75
--- NOTE | 2019-02-03 13:41 | NUR ---
REPORT CALLED TO ANTHONY WATT.
[2019-02-03] MEDS ORDERED: WATER (STERILE) FOR INJECTION 20 ML ONE (14:17)
[2019-02-03] MEDS ORDERED: CEFEPIME 2 GM (MAXIPIME) VIAL ONE (14:17)
[2019-02-03] MEDS ORDERED: CEFEPIME INJECTION 2,000 MG in WATER (STERILE) FOR INJECTION 20 ML IV ONE (14:30)
--- NOTE | 2019-02-03 15:05 | NUR ---
LUIS MANUEL RETANA admitted to room 425-1, with an admitting diagnosis of ACUTE COPD EXACERBATION, on 02/03/19 from ED via BED, accompanied by ED STAFF. LUIS MANUEL RETANA introduced to surroundings, call light, bed controls, phone, TV, temperature control, lights, meal times, smoking policy, visitor policy, side rail policy, bathrooms and showers. Patient Rights given to patient in the handbook. LUIS MANUEL RETANA verbalizes understanding that [facility] is not responsible for the loss or damage to any personal effects or valuables that are kept in the patients possession during their hospitalization.
[2019-02-03] MEDS ORDERED: NICO-588 TD (15:27)
[2019-02-03] MEDS ORDERED: ARIP15TA9 PO (15:27)
[2019-02-03] MEDS ORDERED: ACET325T38 PO (15:27)
--- NOTE | 2019-02-03 15:28 | NUR ---
UPDATED MED REC WITH ORDER SUMMARY REPORT FROM [facility]
[2019-02-03] MEDS ORDERED: CATHETER FLUSH 10 ML SYR IV PRN (15:30)
[2019-02-03 15:35] VITALS: BP 133/67
[2019-02-03] MEDS: NS IV 1000 ML 1,000 ML IV SCH (16:15)
[2019-02-03 16:40] VITALS: BP 133/67
[2019-02-03] MEDS ORDERED: RT-ALBUTEROL/IPRATROPIUM 3 ML (DUONEB) VIAL INH PRN (17:00)
[2019-02-03] MEDS: RT-ALBUTEROL/IPRATROPIUM 3 ML (DUONEB) VIAL INH SCH ×2 (18:51→22:08)
[2019-02-03] MEDS: methylPREDNISolone 125 MG (Solu-MEDROL) VIAL IV SCH (19:02)
[2019-02-03 19:09] VITALS: BP 122/65
[2019-02-04] VITALS (7 sets, daily range): BP systolic 95–137; BP diastolic 55–64
[2019-02-04] MEDS: RT-ALBUTEROL/IPRATROPIUM 3 ML (DUONEB) VIAL INH SCH ×6 (02:54→21:51)
[2019-02-04 05:08] LABS: BASOPHILS % (AUTO) 0 % (0-10); EOSINOPHILS % (AUTO) 0 % (0-10); HEMATOCRIT 51 % (40-54); HEMOGLOBIN 15.8 G/DL (13.3-17.7); LYMPHOCYTES # (AUTO) 0.8 X 10^3 (1.0-4.0); LYMPHOCYTES % (AUTO) 6 % (12-44); MEAN CORPUSCULAR HEMOGLOBIN 29 PG (25-34); MEAN CORPUSCULAR HGB CONC 31 G/DL (32-36); MEAN CORPUSCULAR VOLUME 91 FL (80-99); MEAN PLATELET VOLUME 10.7 FL (7.4-10.4); MONOCYTES # (AUTO) 0.2 X 10^3 (0.0-1.0); MONOCYTES % (AUTO) 1 % (0-12); NEUTROPHILS # (AUTO) 11.9 X 10^3 (1.8-7.8); NEUTROPHILS % (AUTO) 92 % (42-75); PLATELET COUNT 183 10^3/uL (130-400); RED CELL DISTRIBUTION WIDTH 17.2 % (10.0-14.5); WHITE BLOOD COUNT 12.9 10^3/uL (4.3-11.0)
[2019-02-04 05:20] LABS: ANISOCYTOSIS SLIGHT; BAND NEUTROPHILS 16 %; BASOPHILS % (MANUAL) 0 %; EOSINOPHILS % (MANUAL) 0 %; LYMPHOCYTES % (MANUAL) 4 %; MONOCYTES % (MANUAL) 2 %; NEUTROPHILS % (MANUAL) 74 %; POLYCHROMASIA SLIGHT; REACTIVE LYMPHOCYTES 4 %
[2019-02-04 05:35] LABS: ALANINE AMINOTRANSFERASE 16 U/L (0-55); ALBUMIN 3.5 GM/DL (3.2-4.5); ALKALINE PHOSPHATASE 74 U/L (40-136); BILIRUBIN,TOTAL 0.4 MG/DL (0.1-1.0); BUN/CREATININE RATIO 17; CALCIUM 9.4 MG/DL (8.5-10.1); CARBON DIOXIDE 30 MMOL/L (21-32); CHLORIDE 100 MMOL/L (98-107); CREATININE SERUM 0.75 MG/DL (0.60-1.30); GFR ESTIMATED > 60; GLUCOSE 143 MG/DL (70-105); SODIUM 143 MMOL/L (135-145); TOTAL PROTEIN 6.6 GM/DL (6.4-8.2)
[2019-02-04] MEDS: methylPREDNISolone 125 MG (Solu-MEDROL) VIAL IV SCH ×3 (06:41→12:09)
--- NOTE | 2019-02-04 08:07 | History & Physicial ---
History of Present Illness History of Present Illness Reason for visit/HPI Ration resident of [facility]. 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 Patient transferred to emergency room. Patient put on 6 L of nasal oxygen. Patient previously using 2 L. Patient has history of noncompliance. Patient short of breath and wheezing. Chest x-ray may show infiltrate. Patient coughing and wheezing in still smoking. Patient admitted Date of Admission Feb 03, 2019 at 14:09 Time Seen by a Provider: 08:03 I consulted on this patient on 02/04/19 08:02 Attending Physician Abelino Casanova DO Admitting Physician Abelino Casanova DO Consult Allergies and Home Medications Allergies Coded Allergies: No Known Drug Allergies (Unverified , 12/07/16) Home Medications Acetaminophen 325 Mg Tablet, 650 MG PO Q6H PRN for PAIN-MILD, (Reported) TAKES 2 (325MG) TABLETS Acetaminophen 325 Mg Tablet, 650 MG PO Q4H PRN for FEVER, (Reported) TAKES 2 (325MG) TABLETS Aripiprazole 15 Mg Tablet, 15 MG PO DAILY, (Reported) Aspirin 81 Mg Tablet.dr, 81 MG PO DAILY, (Reported) Benzonatate 200 Mg Capsule, 200 MG PO Q8H PRN for COUGH, (Reported) Budesonide/Formoterol Fumarate 10.2 Gm Hfa.aer.ad, 2 PUFF IH BID, (Reported) Carbamide Peroxide 15 Ml Drops, 5 DROPS EACH EAR Q12H PRN for WAX BUILD UP, ( Reported) Carboxymethylcellulose Sodium 15 Ml Drops, 1 DROP OU Q4H PRN for DRY EYES, ( Reported) Clonazepam 0.5 Mg Tablet, 0.5 MG PO BID, (Reported) Divalproex Sodium 125 Mg Cap.sprink, 125 MG PO TID, (Reported) Escitalopram Oxalate 20 Mg Tablet, 40 MG PO DAILY, (Reported) TAKES 2 (20MG) TABLETS Furosemide 20 Mg Tablet, 20 MG PO DAILY, (Reported) Ipratropium/Albuterol Sulfate 3 Ml Ampul.neb, 3 ML NEB Q6H PRN for SHORTNESS OF BREATH, (Reported) Metoprolol Tartrate 25 Mg Tablet, 25 MG PO BID, (Reported) HOLD FOR SYSTOLIC BP < 100 Multivitamin 1 Each Tablet, 1 TAB PO DAILY, (Reported) Nicotine 1 Each Patch.td24, 21 MG TD DAILY, (Reported) Ondansetron HCl 4 Mg Tab, 4 MG PO Q4H PRN for NAUSEA/VOMITING-1ST LINE, ( Reported) Pantoprazole Sodium 40 Mg Tablet.dr, 40 MG PO DAILY, (Reported) Patient Home Medication List Home Medication List Reviewed: Yes Past Qvnsqpp-Qucopn-Nkvegh Hx Patient Social History Employed/Student: unemployed Alcohol Use: Denies Use Recreational Drug Use: No Smoking Status: Current Everyday Smoker Type Used: Cigarettes Recent Foreign Travel: No Contact w/other who traveled: No Recent Hopitalizations: No Recent Infectious Disease Expo: No Immunizations Up To Date Tetanus Booster (TDap): Unknown Date of Influenza Vaccine: Jan 05, 2019 Seasonal Allergies Seasonal Allergies: No Surgeries No Respiratory Yes COPD Cardiovascular Yes Hypertension Neurological No Genitourinary No Gastrointestinal Yes Gastroesophageal Reflux, Hepatitis Musculoskeletal No Endocrine History of Endocrine Disorders: No HEENT History of HEENT Disorders: No Cancer Yes Colon Psychosocial History of Psychiatric Problem: Yes Behavioral Health Disorders: Anxiety, Violent Behavior, Depression Integumentary History of Skin or Integumenta: No Blood Transfusions History of Blood Disorders: Yes (HEP C ) Family Medical History Significant Family History: No Pertinent Family Hx Review of Systems Constitutional: weakness EENTM: no symptoms reported Respiratory: short of breath, wheezing Cardiovascular: no symptoms reported Gastrointestinal: no symptoms reported Genitourinary: no symptoms reported Physical Exam Vital Signs Vital Signs - First Documented 02/03/19 12:23 FiO2 92 Capillary Refill : Less Than 3 Seconds Height, Weight, BMI Height: 5'6.00" Weight: 204lbs. 0.0oz. 92.382360cf; 32.9 BMI Method:Stated General Appearance: WD/WN Eyes: Bilateral Eye Normal Inspection HEENT: Normal ENT Inspection Neck: Full Range of Motion, Normal Inspection, Non Tender Respiratory: Decreased Breath Sounds, Wheezing Cardiovascular: Regular Rate, Rhythm, No Murmur Gastrointestinal: Non Tender, Soft Assessment/Plan Assessment and Plan COPD with acute exacerbation. Hypoxia. Hypertension. Tobaccoism. Noncompliance. Could have lung infiltrate Admission Diagnosis Admission Status: Inpatient Order (span 2 midnights) Reason for Inpatient Admission: COPD with acute exacerbation . Hypoxia Clinical Quality Measures DVT/VTE Risk/Contraindication: Risk Factor Score Per Nursin RFS Level Per Nursing on Admit: 4+=Very High ABELINO CASANOVA DO Feb 04, 2019 08:07
[2019-02-04] MEDS ORDERED: ACETAMINOPHEN 325 MG TABLET PO PRN (08:15)
[2019-02-04] MEDS: DIVALPROX SPRINKLE 125 MG (DEPAKOTE) CAP PO SCH ×3 (09:37→20:17)
[2019-02-04] MEDS: FUROSEMIDE 20 MG (LASIX) TAB PO SCH (09:38)
[2019-02-04] MEDS: meTOprolol TARTRATE 25 MG (LOPRESSOR) TABLET PO SCH ×2 (09:38→20:17)
[2019-02-04] MEDS: clonazePAM 0.5 MG (KlonoPIN) TAB PO SCH ×2 (09:38→20:17)
[2019-02-04] MEDS: ASPIRIN E.C. 81 MG (ECOTRIN) TAB PO SCH (09:38)
[2019-02-04] MEDS: ENOXAPARIN 40 MG/0.4 ML (LOVENOX) SYR SC SCH (09:38)
[2019-02-04] MEDS: PANTOPRAZOLE 40 MG (PROTONIX) TAB PO SCH (09:38)
--- NOTE | 2019-02-04 09:58 | Diagnostic Imaging Report ---
CLINICAL INDICATION: Patient with shortness of breath and COPD (acute exacerbation). EXAM: Chest x-ray, PA and lateral views. COMPARISON: Chest x-ray dated 02/03/2019. FINDINGS: Lungs/pleura: There is interval increased amorphous airspace opacification and slight volume loss involving the right midlung field. There is slightly increased patchy airspace disease involving the right upper lobe. Otherwise, the lungs are clear. There is no pneumothorax. There is no pleural effusion. Mediastinum: Unremarkable. Pulmonary vasculature: Unremarkable. Heart: Unremarkable. Bones/extrathoracic soft tissue: There are mildly hypertrophic degenerative osteophytes scattered throughout the thoracic spine. Multiple old healed right rib fractures are seen. IMPRESSION: 1. There is interval slight increased amorphous airspace opacification and slight lung volume loss in the right midlung field/right lung base which is concerning for atelectasis; however, superimposed infiltrate cannot be completely excluded. 2. There is subtle increased airspace opacification involving the right upper lobe. Dictated by: Dictated on workstation # [id number]
[2019-02-04] MEDS: NS IV 1000 ML 1,000 ML IV SCH (11:47)
[2019-02-04] MEDS ORDERED: CATHETER FLUSH 10 ML SYR IV PRN (12:00)
--- NOTE | 2019-02-04 13:30 | Pulmonary Consultation ---
History of Present Illness History of Present Illness Date of Consultation 02/04/19 13:25 Time Seen by Provider: 13:25 Date of Admission History of Present Illness 58yo with hx of severe oxygen dependent COPD and continues to smoke and was sent to ED from my office secondary to worsening SOB and hypoxia in the 70's with 2liters oxygen. I was going to directly admit him however at the time we were on diversion. 4th floor bed opened up after pt arrived in ED. Pt normally uses 2 liters of oxygen at home. PT is from [facility]. He denies fever or chills. Does have cough and poor cough effort Allergies and Home Medications Allergies Coded Allergies: No Known Drug Allergies (Unverified , 12/07/16) Home Medications Acetaminophen 325 Mg Tablet, 650 MG PO Q6H PRN for PAIN-MILD, (Reported) TAKES 2 (325MG) TABLETS Acetaminophen 325 Mg Tablet, 650 MG PO Q4H PRN for FEVER, (Reported) TAKES 2 (325MG) TABLETS Aripiprazole 15 Mg Tablet, 15 MG PO DAILY, (Reported) Aspirin 81 Mg Tablet.dr, 81 MG PO DAILY, (Reported) Benzonatate 200 Mg Capsule, 200 MG PO Q8H PRN for COUGH, (Reported) Budesonide/Formoterol Fumarate 10.2 Gm Hfa.aer.ad, 2 PUFF IH BID, (Reported) Carbamide Peroxide 15 Ml Drops, 5 DROPS EACH EAR Q12H PRN for WAX BUILD UP, ( Reported) Carboxymethylcellulose Sodium 15 Ml Drops, 1 DROP OU Q4H PRN for DRY EYES, ( Reported) Clonazepam 0.5 Mg Tablet, 0.5 MG PO BID, (Reported) Divalproex Sodium 125 Mg Cap.sprink, 125 MG PO TID, (Reported) Escitalopram Oxalate 20 Mg Tablet, 40 MG PO DAILY, (Reported) TAKES 2 (20MG) TABLETS Furosemide 20 Mg Tablet, 20 MG PO DAILY, (Reported) Ipratropium/Albuterol Sulfate 3 Ml Ampul.neb, 3 ML NEB Q6H PRN for SHORTNESS OF BREATH, (Reported) Metoprolol Tartrate 25 Mg Tablet, 25 MG PO BID, (Reported) HOLD FOR SYSTOLIC BP < 100 Multivitamin 1 Each Tablet, 1 TAB PO DAILY, (Reported) Nicotine 1 Each Patch.td24, 21 MG TD DAILY, (Reported) Ondansetron HCl 4 Mg Tab, 4 MG PO Q4H PRN for NAUSEA/VOMITING-1ST LINE, ( Reported) Pantoprazole Sodium 40 Mg Tablet.dr, 40 MG PO DAILY, (Reported) Past Xmylira-Untnpw-Eehhii Hx Past Med/Social Hx: Reviewed Nursing Past Med/Soc Hx Patient Social History Alcohol Use: Denies Use Recreational Drug Use: No Smoking Status: Current Everyday Smoker Type Used: Cigarettes Recent Foreign Travel: No Contact w/Someone Who Travel: No Recent Infectious Disease Expo: No Recent Hopitalizations: No Physical Abuse: No Sexual Abuse: No Mistreated: No Fear: No Immunizations Up To Date Tetanus Booster (TDap): Unknown Date of Influenza Vaccine: Jan 05, 2019 Seasonal Allergies Seasonal Allergies: No Past Medical History Surgeries: No Respiratory: Yes COPD Cardiac: Yes Hypertension Neurological: No Genitourinary: No Gastrointestinal: Yes Gastroesophageal Reflux, Hepatitis Musculoskeletal: No Endocrine: No HEENT: No Cancer: Yes Colon Psychosocial: Yes Anxiety, Violent Behavior, Depression Integumentary: No Blood Disorders: Yes (HEP C ) Family Medical History Reviewed Nursing Family Hx No Pertinent Family Hx Review of Systems Time Seen by Provider: 13:36 Constitutional: Sweats, Weakness, Malaise; No: Fever, Chills, Other Eyes: No: Pain, Vision change, Conjunctivae inflammation, Eyelid inflammation, Other, Redness ENT: Nose congestion; No: Ear pain, Ear discharge, Nose pain, Nose discharge, Mouth pain, Mouth swelling, Throat pain, Throat swelling, Other Respiratory: Cough, Shortness of breath, SOB with excertion, Sputum; No: Wheezing, Hemoptysis Cardiovascular: Palpitations, Orthopnea, Paroxysmal Noc. Dyspnea, Lt Headedness ; No: Chest Pain, Edema, Other Gastrointestinal: No: Nausea, Vomiting, Abdominal Pain, Diarrhea, Constipation , Melena, Hematochezia, Other Genitourinary: No Dysuria, No Frequency, No Incontinence, No Hematuria, No Retention, No Other Sepsis Event Evaluation Height, Weight, BMI Height: 5'6.00" Weight: 204lbs. 0.0oz. 92.039400ac; 32.9 BMI Method:Stated Exam Exam Vital Signs Date Time Temp Pulse Resp B/P (MAP) Pulse Ox O2 Delivery O2 Flow Rate FiO2 02/04/19 10:46 94 Nasal Cannula 5.00 02/04/19 08:00 Nasal Cannula 5.00 02/04/19 08:00 97.5 78 18 137/64 (88) 91 Nasal Cannula 5.00 02/04/19 07:12 95 Nasal Cannula 5.00 02/04/19 04:00 97.8 78 16 128/55 (79) 94 Nasal Cannula 5.00 02/04/19 02:54 94 Nasal Cannula 5.00 02/04/19 00:00 96.0 72 16 95/55 (68) 96 Nasal Cannula 5.00 02/03/19 22:08 90 Nasal Cannula 5.00 02/03/19 20:00 Nasal Cannula 5.00 02/03/19 19:28 95 Nasal Cannula 5.00 02/03/19 19:09 96.6 80 14 122/65 (84) 95 Nasal Cannula 5.00 02/03/19 18:51 90 Nasal Cannula 5.00 02/03/19 16:40 86 93 02/03/19 16:40 93 Nasal Cannula 5.00 02/03/19 15:35 98.0 95 16 133/67 92 Nasal Cannula 5.00 6.00 02/03/19 15:35 96.6 95 16 133/67 (89) 92 Nasal Cannula 5.00 02/03/19 13:29 71 18 147/75 (99) 96 I & O 02/04/19 07:00 Intake Total 560 ml Output Total 200 ml Balance 360 ml Height & Weight Height: 5'6.00" Weight: 204lbs. 0.0oz. 92.674894pc; 32.9 BMI Method:Stated General Appearance: WD/WN HEENT: Normal ENT Inspection Neck: Full Range of Motion, Normal Inspection, Non Tender Respiratory: Decreased Breath Sounds, Wheezing Cardiovascular: Regular Rate, Rhythm, No Murmur Capillary Refill: Less Than 3 Seconds Gastrointestinal: non tender, soft Extremity: Normal Capillary Refill, Normal Inspection Neurologic/Psychiatric: Alert Skin: Normal Color, Warm/Dry Lymphatic: No Adenopathy Results Lab Laboratory Tests 02/03/19 10:08 02/04/19 04:35 Assessment/Plan Assessment/Plan Acute on chronic respiratory failure with hypoxia -BiPAP PRN and QHS Pneumonia -Continue Cefepime -Await jean cultures -Check MRSA swab COPDAE -Solumedrol -SVNS Q4 Atelectasis -IS -SVNS Morbid obesity KEYONA EVANS DO Feb 04, 2019 13:30
--- NOTE | 2019-02-04 14:23 | NUR ---
Pt is Taoist and declines sacraments. Pattern Checker provided prayer and blessing.
[2019-02-04] MEDS: CEFEPIME INJECTION 1,000 MG in WATER (STERILE) FOR INJECTION 10 ML IV SCH ×2 (15:12→20:17)
[2019-02-04] MEDS: guaiFENesin (MUCINEX) 600 MG TAB PO SCH ×2 (15:12→20:17)
[2019-02-04] MEDS ORDERED: methylPREDNISolone 125 MG (Solu-MEDROL) VIAL IV SCH (18:00)
[2019-02-04] MEDS: methylPREDNISolone 40 MG/ML (Solu-MEDROL) VIAL IV SCH ×2 (18:16→23:05)
[2019-02-04] MEDS: aCETylcysteine 20% (MUCOMYST) 30ML SOLN VIAL INH SCH ×2 (18:41→21:52)
[2019-02-04] MEDS ORDERED: guaiFENesin (MUCINEX) 600 MG TAB PO SCH (21:00)
[2019-02-04] MEDS: RT-ADVAIR HFA 115/21 MCG PER PUFF IH SCH (21:52)
[2019-02-05] MEDS: aCETylcysteine 20% (MUCOMYST) 30ML SOLN VIAL INH SCH ×7 (02:29→22:22)
[2019-02-05] MEDS: RT-ALBUTEROL/IPRATROPIUM 3 ML (DUONEB) VIAL INH SCH ×7 (02:29→22:21)
[2019-02-05] MEDS: CEFEPIME INJECTION 1,000 MG in WATER (STERILE) FOR INJECTION 10 ML IV SCH ×4 (03:36→20:58)
[2019-02-05] MEDS: methylPREDNISolone 40 MG/ML (Solu-MEDROL) VIAL IV SCH ×2 (04:52→17:45)
[2019-02-05 06:29] LABS: BASOPHILS % (AUTO) 0 % (0-10); EOSINOPHILS % (AUTO) 0 % (0-10); HEMATOCRIT 47 % (40-54); HEMOGLOBIN 14.9 G/DL (13.3-17.7); LYMPHOCYTES # (AUTO) 1.4 X 10^3 (1.0-4.0); LYMPHOCYTES % (AUTO) 7 % (12-44); MEAN CORPUSCULAR HEMOGLOBIN 29 PG (25-34); MEAN CORPUSCULAR HGB CONC 32 G/DL (32-36); MEAN CORPUSCULAR VOLUME 91 FL (80-99); MEAN PLATELET VOLUME 11.1 FL (7.4-10.4); MONOCYTES # (AUTO) 0.5 X 10^3 (0.0-1.0); MONOCYTES % (AUTO) 2 % (0-12); NEUTROPHILS # (AUTO) 18.8 X 10^3 (1.8-7.8); NEUTROPHILS % (AUTO) 91 % (42-75); PLATELET COUNT 170 10^3/uL (130-400); RED CELL DISTRIBUTION WIDTH 16.8 % (10.0-14.5); WHITE BLOOD COUNT 20.6 10^3/uL (4.3-11.0)
[2019-02-05 06:52] LABS: ALANINE AMINOTRANSFERASE 15 U/L (0-55); ALBUMIN 3.3 GM/DL (3.2-4.5); ALKALINE PHOSPHATASE 63 U/L (40-136); BILIRUBIN,TOTAL 0.4 MG/DL (0.1-1.0); BUN/CREATININE RATIO 26; CARBON DIOXIDE 30 MMOL/L (21-32); CHLORIDE 97 MMOL/L (98-107); GFR ESTIMATED > 60; GLUCOSE 137 MG/DL (70-105); SODIUM 138 MMOL/L (135-145); TOTAL PROTEIN 5.9 GM/DL (6.4-8.2)
[2019-02-05 07:05] LABS: LYMPHOCYTES % (MANUAL) 11 %; MONOCYTES % (MANUAL) 1 %; NEUTROPHILS % (MANUAL) 88 %; SPHEROCYTES MODERATE
[2019-02-05] MEDS: RT-ADVAIR HFA 115/21 MCG PER PUFF IH SCH ×2 (07:38→19:48)
--- NOTE | 2019-02-05 08:02 | Progress Note (SOAP) ---
Subjective Time Seen by a Provider: 08:00 Subjective/Events-last exam Patient resting comfortably in bed. White blood cell count elevated patient on Solu-Medrol. Patient went from 5 L to 3 L. Patient usually on 2 L of nasal oxygen. Patient afebrile. Chest x-ray ordered today Focused Exam Lactate Level 02/03/19 10:08: Lactic Acid Level 0.98 Objective Exam Vital Signs Date Time Temp Pulse Resp B/P (MAP) Pulse Ox O2 Delivery O2 Flow Rate FiO2 02/05/19 07:38 95 Nasal Cannula 3.00 02/05/19 07:17 96 Nasal Cannula 5.00 02/05/19 02:29 Nasal Cannula 5.00 02/04/19 23:07 98.6 67 22 120/58 (78) 91 Nasal Cannula 5.00 02/04/19 22:07 95 Nasal Cannula 5.00 02/04/19 21:52 91 Nasal Cannula 5.00 02/04/19 20:00 Nasal Cannula 5.00 02/04/19 19:55 99.0 68 20 118/58 (78) 91 Nasal Cannula 5.00 02/04/19 18:42 90 Nasal Cannula 5.00 02/04/19 15:40 98.6 68 20 106/56 (73) 94 Nasal Cannula 5.00 02/04/19 15:08 93 Nasal Cannula 5.00 02/04/19 12:00 98.0 82 22 123/60 (81) 91 Nasal Cannula 5.00 02/04/19 10:46 94 Nasal Cannula 5.00 02/04/19 08:00 Nasal Cannula 5.00 02/04/19 08:00 97.5 78 18 137/64 (88) 91 Nasal Cannula 5.00 I & O 02/05/19 07:00 Intake Total 4670 ml Output Total 2325 ml Balance 2345 ml Capillary Refill : Less Than 3 Seconds General Appearance: No Apparent Distress, WD/WN HEENT: Normal ENT Inspection Neck: Full Range of Motion, Normal Inspection Respiratory: No Accessory Muscle Use, No Respiratory Distress, Decreased Breath Sounds Cardiovascular: Regular Rate, Rhythm, No Murmur Gastrointestinal: non tender, soft Results Lab Laboratory Tests 02/05/19 05:50 Laboratory Tests 02/05/19 05:50: White Blood Count 20.6H, Red Blood Count 5.18, Hemoglobin 14.9, Hematocrit 47, Mean Corpuscular Volume 91, Mean Corpuscular Hemoglobin 29, Mean Corpuscular Hemoglobin Concent 32, Red Cell Distribution Width 16.8H, Platelet Count 170, Mean Platelet Volume 11.1H, Neutrophils (%) (Auto) 91H, Lymphocytes (%) (Auto) 7L, Monocytes (%) (Auto) 2, Eosinophils (%) (Auto) 0, Basophils (%) (Auto) 0, Neutrophils # (Auto) 18.8H, Lymphocytes # (Auto) 1.4, Monocytes # (Auto) 0.5, Eosinophils # (Auto) 0.0, Basophils # (Auto) 0.0, Neutrophils % (Manual) 88, Lymphocytes % (Manual) 11, Monocytes % (Manual) 1, Spherocytes MODERATE, Sodium Level 138, Potassium Level 5.0, Chloride Level 97L, Carbon Dioxide Level 30, Anion Gap 11, Blood Urea Nitrogen 18, Creatinine 0.70, Estimat Glomerular Filtration Rate > 60, BUN/Creatinine Ratio 26, Glucose Level 137H, Calcium Level 9.0, Corrected Calcium 9.6, Total Bilirubin 0.4, Aspartate Amino Transf ( AST/SGOT) 15, Alanine Aminotransferase (ALT/SGPT) 15, Alkaline Phosphatase 63, Total Protein 5.9L, Albumin 3.3 Microbiology 02/03/19 Blood Culture - Preliminary, Resulted No growth 02/03/19 Urine Culture - Final, Complete 3 or more isolates Assessment/Plan Assessment/Plan Assess & Plan/Chief Complaint Cunin chronic respiratory failure with hypoxia. Pneumonia. COPD with acute exacerbation. Atelectasis. Tobaccoism. Leukocytosis patient on Solu-Medrol Clinical Quality Measures Admission Status Admission Dx COPD with acute exacerbation. Hypoxia. Hypertension. Tobaccoism. Noncompliance. Could have lung infiltrate DVT/VTE Risk/Contraindication: Risk Factor Score Per Nursin RFS Level Per Nursing on Admit: 4+=Very High ART CASANOVA DO Feb 05, 2019 08:02
[2019-02-05] MEDS: ENOXAPARIN 40 MG/0.4 ML (LOVENOX) SYR SC SCH (08:44)
[2019-02-05] MEDS: meTOprolol TARTRATE 25 MG (LOPRESSOR) TABLET PO SCH ×2 (08:49→20:58)
[2019-02-05] MEDS: guaiFENesin (MUCINEX) 600 MG TAB PO SCH ×2 (08:49→20:58)
[2019-02-05] MEDS: clonazePAM 0.5 MG (KlonoPIN) TAB PO SCH ×2 (08:49→20:58)
[2019-02-05] MEDS: DIVALPROX SPRINKLE 125 MG (DEPAKOTE) CAP PO SCH ×3 (08:49→20:58)
[2019-02-05] MEDS: ASPIRIN E.C. 81 MG (ECOTRIN) TAB PO SCH (08:50)
[2019-02-05] MEDS: FUROSEMIDE 20 MG (LASIX) TAB PO SCH (08:50)
[2019-02-05] MEDS: PANTOPRAZOLE 40 MG (PROTONIX) TAB PO SCH (08:50)
--- NOTE | 2019-02-05 10:21 | Pulmonary Progress Note ---
Subjective Time Seen by a Provider: 06:19 Subjective/Events-last exam PT is feeling better Sepsis Event Evaluation Height, Weight, BMI Height: 5'6.00" Weight: 204lbs. 0.0oz. 92.406881bv; 32.9 BMI Method:Stated Focused Exam Lactate Level 02/03/19 10:08: Lactic Acid Level 0.98 Exam Exam Vital Signs Date Time Temp Pulse Resp B/P (MAP) Pulse Ox O2 Delivery O2 Flow Rate FiO2 02/05/19 07:39 Nasal Cannula 3.00 02/05/19 07:38 95 Nasal Cannula 3.00 02/05/19 07:17 96 Nasal Cannula 5.00 02/05/19 02:29 Nasal Cannula 5.00 02/04/19 23:07 98.6 67 22 120/58 (78) 91 Nasal Cannula 5.00 02/04/19 22:07 95 Nasal Cannula 5.00 02/04/19 21:52 91 Nasal Cannula 5.00 02/04/19 20:00 Nasal Cannula 5.00 02/04/19 19:55 99.0 68 20 118/58 (78) 91 Nasal Cannula 5.00 02/04/19 18:42 90 Nasal Cannula 5.00 02/04/19 15:40 98.6 68 20 106/56 (73) 94 Nasal Cannula 5.00 02/04/19 15:08 93 Nasal Cannula 5.00 02/04/19 12:00 98.0 82 22 123/60 (81) 91 Nasal Cannula 5.00 02/04/19 10:46 94 Nasal Cannula 5.00 I & O 02/05/19 07:00 Intake Total 4670 ml Output Total 2325 ml Balance 2345 ml Height & Weight Height: 5'6.00" Weight: 204lbs. 0.0oz. 92.329975be; 32.9 BMI Method:Stated General Appearance: No Apparent Distress, WD/WN HEENT: Normal ENT Inspection Neck: Full Range of Motion, Normal Inspection Respiratory: No Accessory Muscle Use, No Respiratory Distress, Decreased Breath Sounds Cardiovascular: Regular Rate, Rhythm, No Murmur Capillary Refill: Less Than 3 Seconds Gastrointestinal: non tender, soft Extremity: Normal Capillary Refill, Normal Inspection Neurologic/Psychiatric: Alert Skin: Normal Color, Warm/Dry Lymphatic: No Adenopathy Results Lab Laboratory Tests 02/04/19 04:35 02/05/19 05:50 Assessment/Plan Assessment/Plan Acute on chronic respiratory failure with hypoxia -BiPAP PRN and QHS Pneumonia -Continue Cefepime -Await jean cultures -Check MRSA swab COPDAE -Solumedrol -SVNS Q4 Atelectasis -IS -SVNS Morbid obesity KEYONA EVANS DO Feb 05, 2019 10:21
--- NOTE | 2019-02-05 12:43 | Diagnostic Imaging Report ---
EXAMINATION: PA and lateral chest at 08:39 a.m. INDICATION: Pneumonia follow-up. FINDINGS: The heart size is within normal limits and stable when compared to 02/04/2019. The alveolar/interstitial pulmonary infiltrate involving the right mid lung and the right lung base seen on the prior study is again evident and no different. The right apex and left lung are generally clear. The mediastinum is not widened. Multiple healed rib fractures are seen bilaterally. IMPRESSION: Stable chest. There has been no significant change since the prior exam. A follow-up study will be recommended for continued evaluation. Dictated by: Dictated on workstation # [id number]
[2019-02-05 15:54] VITALS: BP 125/81
--- NOTE | 2019-02-05 16:20 | NUR ---
HUSKER OPERATOR REPORTS SATS IN 80'S. RT NOTIFIED. INCREASED O2 FROM 3L-5L N/C. SATS REMAINED IN 80'S. O2 TO 6L N/C. NO CHANGE IN STATUS. @ 1640 PLACED ON BIPAP BY JEREMIAS RT RATE 16, 04/06, 40%. SATS IN LOW 90'S.
[2019-02-05 19:25] VITALS: BP 151/73
[2019-02-05 23:30] VITALS: BP 157/78
[2019-02-06] MEDS: aCETylcysteine 20% (MUCOMYST) 30ML SOLN VIAL INH SCH ×6 (02:26→22:30)
[2019-02-06] MEDS: RT-ALBUTEROL/IPRATROPIUM 3 ML (DUONEB) VIAL INH SCH ×6 (02:26→22:30)
[2019-02-06] MEDS: CEFEPIME INJECTION 1,000 MG in WATER (STERILE) FOR INJECTION 10 ML IV SCH ×4 (02:40→20:34)
[2019-02-06] MEDS: methylPREDNISolone 40 MG/ML (Solu-MEDROL) VIAL IV SCH (05:18)
--- NOTE | 2019-02-06 06:19 | Pulmonary Progress Note ---
Subjective Time Seen by a Provider: 08:46 Subjective/Events-last exam No complications noted. Sepsis Event Evaluation Height, Weight, BMI Height: 5'6.00" Weight: 204lbs. 0.0oz. 92.912613yj; 32.9 BMI Method:Stated Focused Exam Lactate Level 02/03/19 10:08: Lactic Acid Level 0.98 Exam Exam Vital Signs Date Time Temp Pulse Resp B/P (MAP) Pulse Ox O2 Delivery O2 Flow Rate FiO2 02/06/19 02:26 58 19 94 40.00 02/06/19 00:12 60 18 93 40.00 02/05/19 23:30 98.4 60 20 157/78 (104) 97 NIV Bilevel 02/05/19 22:22 63 27 94 40.00 02/05/19 20:00 NIV Bilevel 02/05/19 19:48 62 20 92 40.00 02/05/19 19:47 92 Nasal Cannula 3.00 02/05/19 19:25 99.0 66 20 151/73 (99) 94 Nasal Cannula 5.00 02/05/19 16:34 65 22 92 40.00 02/05/19 15:54 97.2 68 21 125/81 (96) 92 Nasal Cannula 5.00 02/05/19 14:41 93 Nasal Cannula 3.00 02/05/19 11:11 92 Nasal Cannula 3.00 02/05/19 08:00 Nasal Cannula 3.00 02/05/19 07:39 Nasal Cannula 3.00 02/05/19 07:38 95 Nasal Cannula 3.00 02/05/19 07:17 96 Nasal Cannula 5.00 I & O 02/06/19 07:00 Intake Total 2320 ml Output Total 2750 ml Balance -430 ml Height & Weight Height: 5'6.00" Weight: 204lbs. 0.0oz. 92.303086ey; 32.9 BMI Method:Stated General Appearance: No Apparent Distress, WD/WN HEENT: Normal ENT Inspection Neck: Full Range of Motion, Normal Inspection Respiratory: No Accessory Muscle Use, No Respiratory Distress, Decreased Breath Sounds Cardiovascular: Regular Rate, Rhythm, No Murmur Capillary Refill: Less Than 3 Seconds Gastrointestinal: non tender, soft Extremity: Normal Capillary Refill, Normal Inspection Neurologic/Psychiatric: Alert Skin: Normal Color, Warm/Dry Lymphatic: No Adenopathy Results Lab Laboratory Tests 02/05/19 05:50 Assessment/Plan Assessment/Plan Acute on chronic respiratory failure with hypoxia -BiPAP PRN and QHS Pneumonia -Continue Cefepime -Await jean cultures -MRSA swab COPDAE -Solumedrol -SVNS Q4 Atelectasis -IS -SVNS Morbid obesity KEYONA EVANS DO Feb 06, 2019 06:19
[2019-02-06 06:46] LABS: BASOPHILS % (AUTO) 0 % (0-10); EOSINOPHILS % (AUTO) 0 % (0-10); HEMATOCRIT 47 % (40-54); HEMOGLOBIN 14.9 G/DL (13.3-17.7); LYMPHOCYTES # (AUTO) 1.2 X 10^3 (1.0-4.0); LYMPHOCYTES % (AUTO) 7 % (12-44); MEAN CORPUSCULAR HEMOGLOBIN 28 PG (25-34); MEAN CORPUSCULAR HGB CONC 32 G/DL (32-36); MEAN CORPUSCULAR VOLUME 89 FL (80-99); MEAN PLATELET VOLUME 10.2 FL (7.4-10.4); MONOCYTES # (AUTO) 1.1 X 10^3 (0.0-1.0); MONOCYTES % (AUTO) 6 % (0-12); NEUTROPHILS # (AUTO) 14.3 X 10^3 (1.8-7.8); NEUTROPHILS % (AUTO) 87 % (42-75); PLATELET COUNT 155 10^3/uL (130-400); RED CELL DISTRIBUTION WIDTH 17.1 % (10.0-14.5); WHITE BLOOD COUNT 16.5 10^3/uL (4.3-11.0)
[2019-02-06 07:04] LABS: BUN/CREATININE RATIO 28; CALCIUM 8.9 MG/DL (8.5-10.1); CARBON DIOXIDE 31 MMOL/L (21-32); CHLORIDE 97 MMOL/L (98-107); CREATININE SERUM 0.71 MG/DL (0.60-1.30); GFR ESTIMATED > 60; GLUCOSE 113 MG/DL (70-105); POTASSIUM 4.7 MMOL/L (3.6-5.0); SODIUM 138 MMOL/L (135-145)
--- NOTE | 2019-02-06 07:49 | Progress Note (SOAP) ---
Subjective Time Seen by a Provider: 07:46 Subjective/Events-last exam Patient feeling better. Patient on BiPAP. Chest x-ray yesterday still shows infiltrate. Chest x-ray not done today. White blood cell count from 20,000 is now 16,000. Patient afebrile Focused Exam Lactate Level 02/03/19 10:08: Lactic Acid Level 0.98 Objective Exam Vital Signs Date Time Temp Pulse Resp B/P (MAP) Pulse Ox O2 Delivery O2 Flow Rate FiO2 02/06/19 06:28 63 20 93 40.00 02/06/19 02:26 58 19 94 40.00 02/06/19 00:12 60 18 93 40.00 02/05/19 23:30 98.4 60 20 157/78 (104) 97 NIV Bilevel 02/05/19 22:22 63 27 94 40.00 02/05/19 20:00 NIV Bilevel 02/05/19 19:48 62 20 92 40.00 02/05/19 19:47 92 Nasal Cannula 3.00 02/05/19 19:25 99.0 66 20 151/73 (99) 94 Nasal Cannula 5.00 02/05/19 16:34 65 22 92 40.00 02/05/19 15:54 97.2 68 21 125/81 (96) 92 Nasal Cannula 5.00 02/05/19 14:41 93 Nasal Cannula 3.00 02/05/19 11:11 92 Nasal Cannula 3.00 02/05/19 08:00 Nasal Cannula 3.00 I & O 02/06/19 07:00 Intake Total 2320 ml Output Total 2750 ml Balance -430 ml Capillary Refill : Less Than 3 SecondsLess Than 3 Seconds General Appearance: No Apparent Distress, WD/WN HEENT: Normal ENT Inspection Neck: Full Range of Motion Respiratory: No Accessory Muscle Use, No Respiratory Distress, Decreased Breath Sounds Cardiovascular: Regular Rate, Rhythm, No Murmur Gastrointestinal: non tender, soft Results Lab Laboratory Tests 02/06/19 06:25 Laboratory Tests 02/06/19 06:25: White Blood Count 16.5H, Red Blood Count 5.26, Hemoglobin 14.9, Hematocrit 47, Mean Corpuscular Volume 89, Mean Corpuscular Hemoglobin 28, Mean Corpuscular Hemoglobin Concent 32, Red Cell Distribution Width 17.1H, Platelet Count 155, Mean Platelet Volume 10.2, Neutrophils (%) (Auto) 87H, Lymphocytes (%) (Auto) 7L , Monocytes (%) (Auto) 6, Eosinophils (%) (Auto) 0, Basophils (%) (Auto) 0, Neutrophils # (Auto) 14.3H, Lymphocytes # (Auto) 1.2, Monocytes # (Auto) 1.1H, Eosinophils # (Auto) 0.0, Basophils # (Auto) 0.0, Sodium Level 138, Potassium Level 4.7, Chloride Level 97L, Carbon Dioxide Level 31, Anion Gap 10, Blood Urea Nitrogen 20H, Creatinine 0.71, Estimat Glomerular Filtration Rate > 60, BUN /Creatinine Ratio 28, Glucose Level 113H, Calcium Level 8.9 Microbiology 02/03/19 Blood Culture - Preliminary, Resulted No growth 02/04/19 MRSA Screen - Final, Complete MRSA not isolated 02/03/19 Urine Culture - Final, Complete 3 or more isolates Assessment/Plan Assessment/Plan Assess & Plan/Chief Complaint [place] chronic respiratory failure with hypoxia. Pneumonia. COPD with acute exacerbation. Atelectasis. Tobaccoism. Leukocytosis patient on Solu-Medrol. . /. Acute and chronic respiratory failure with hypoxia. Pneumonia. COPD with acute exacerbation. Atelectasis. Tobaccoism. Leukocytosis coming down better decreased Solu-Medrol Clinical Quality Measures Admission Status Admission Dx COPD with acute exacerbation. Hypoxia. Hypertension. Tobaccoism. Noncompliance. Could have lung infiltrate DVT/VTE Risk/Contraindication: Risk Factor Score Per Nursin RFS Level Per Nursing on Admit: 4+=Very High ART CASANOVA DO Feb 06, 2019 07:49
[2019-02-06 08:00] VITALS: BP 153/87
[2019-02-06] MEDS: PANTOPRAZOLE 40 MG (PROTONIX) TAB PO SCH (10:01)
[2019-02-06] MEDS: guaiFENesin (MUCINEX) 600 MG TAB PO SCH ×2 (10:01→20:33)
[2019-02-06] MEDS: clonazePAM 0.5 MG (KlonoPIN) TAB PO SCH ×2 (10:01→20:33)
[2019-02-06] MEDS: ENOXAPARIN 40 MG/0.4 ML (LOVENOX) SYR SC SCH (10:02)
[2019-02-06] MEDS: FUROSEMIDE 20 MG (LASIX) TAB PO SCH (10:02)
[2019-02-06] MEDS: ASPIRIN E.C. 81 MG (ECOTRIN) TAB PO SCH (10:02)
[2019-02-06] MEDS: meTOprolol TARTRATE 25 MG (LOPRESSOR) TABLET PO SCH ×2 (10:02→20:33)
--- NOTE | 2019-02-06 10:37 | Diagnostic Imaging Report ---
INDICATION: Pneumonia. TIME OF EXAM: 09:50 a.m. Correlation is made with prior chest radiograph from one day earlier. The heart size is stable. There appears to be some mild improved aeration to the right lung since prior exams. Left lung remains clear. No new infiltrate is seen. No effusion. No pneumothorax identified. IMPRESSION: There has been some improved aeration to the right lung when compared with the examination one day earlier. Dictated by: Dictated on workstation # [id number]
[2019-02-06] MEDS: DIVALPROX SPRINKLE 125 MG (DEPAKOTE) CAP PO SCH ×3 (10:54→20:33)
[2019-02-06] MEDS: RT-ADVAIR HFA 115/21 MCG PER PUFF IH SCH ×2 (10:54→18:53)
[2019-02-06 15:15] VITALS: BP 141/66
[2019-02-07 00:56] VITALS: BP 170/77
[2019-02-07] MEDS: RT-ALBUTEROL/IPRATROPIUM 3 ML (DUONEB) VIAL INH SCH ×6 (02:30→23:02)
[2019-02-07] MEDS: aCETylcysteine 20% (MUCOMYST) 30ML SOLN VIAL INH SCH ×6 (02:30→23:02)
[2019-02-07] MEDS: CEFEPIME INJECTION 1,000 MG in WATER (STERILE) FOR INJECTION 10 ML IV SCH ×4 (03:24→20:36)
[2019-02-07 06:16] LABS: HEMOGLOBIN 15.4 G/DL (13.3-17.7); MEAN PLATELET VOLUME 10.4 FL (7.4-10.4); WHITE BLOOD COUNT 11.4 10^3/uL (4.3-11.0)
[2019-02-07] MEDS: predniSONE 20 MG TAB PO SCH (06:27)
[2019-02-07 06:48] LABS: BUN/CREATININE RATIO 30; CARBON DIOXIDE 31 MMOL/L (21-32); CHLORIDE 97 MMOL/L (98-107); GFR ESTIMATED > 60; GLUCOSE 81 MG/DL (70-105); POTASSIUM 4.1 MMOL/L (3.6-5.0); SODIUM 139 MMOL/L (135-145)
--- NOTE | 2019-02-07 07:17 | Pulmonary Progress Note ---
Subjective Time Seen by a Provider: 08:50 Subjective/Events-last exam SOB and cough. BIPAP ordered PRN. Sepsis Event Evaluation Height, Weight, BMI Height: 5'6.00" Weight: 204lbs. 0.0oz. 92.209904oi; 32.9 BMI Method:Stated Exam Exam Vital Signs Date Time Temp Pulse Resp B/P (MAP) Pulse Ox O2 Delivery O2 Flow Rate FiO2 02/07/19 02:30 60 20 95 40.00 02/07/19 00:56 98.0 56 20 170/77 (108) 96 High Flow N/C 3.00 02/07/19 00:15 58 23 94 40.00 02/06/19 22:30 58 20 96 40.00 02/06/19 20:00 Nasal Cannula 3.00 02/06/19 18:53 Nasal Cannula 4.00 02/06/19 18:50 94 Nasal Cannula 4.00 02/06/19 15:15 99.1 60 20 141/66 (91) 91 High Flow N/C 3.00 02/06/19 14:06 94 Nasal Cannula 3.00 02/06/19 13:21 69 94 32 02/06/19 10:54 94 Nasal Cannula 3.00 02/06/19 08:00 NIV Bilevel 02/06/19 08:00 97.9 82 20 153/87 (109) 91 High Flow N/C 3.00 I & O 02/07/19 07:00 Intake Total 2160 ml Output Total 3075 ml Balance -915 ml Height & Weight Height: 5'6.00" Weight: 204lbs. 0.0oz. 92.549044gp; 32.9 BMI Method:Stated General Appearance: No Apparent Distress, WD/WN HEENT: Normal ENT Inspection Neck: Full Range of Motion Respiratory: No Accessory Muscle Use, No Respiratory Distress, Decreased Breath Sounds Cardiovascular: Regular Rate, Rhythm, No Murmur Capillary Refill: Less Than 3 Seconds Gastrointestinal: non tender, soft Extremity: Normal Capillary Refill, Normal Inspection Neurologic/Psychiatric: Alert Skin: Normal Color, Warm/Dry Lymphatic: No Adenopathy Results Lab Laboratory Tests 02/06/19 06:25 02/07/19 05:25 02/07/19 05:35 Assessment/Plan Assessment/Plan Acute on chronic respiratory failure with hypoxia -BiPAP PRN and QHS Pneumonia -Continue Cefepime -Await jean cultures -MRSA swab COPDAE -Solumedrol -SVNS Q4 Atelectasis -IS -SVNS Morbid obesity KEYONA EVANS DO Feb 07, 2019 07:17
[2019-02-07] MEDS: RT-ADVAIR HFA 115/21 MCG PER PUFF IH SCH ×2 (07:49→19:08)
[2019-02-07 08:00] VITALS: BP 132/65
[2019-02-07] MEDS: PANTOPRAZOLE 40 MG (PROTONIX) TAB PO SCH (09:09)
[2019-02-07] MEDS: DIVALPROX SPRINKLE 125 MG (DEPAKOTE) CAP PO SCH ×3 (09:09→20:36)
[2019-02-07] MEDS: meTOprolol TARTRATE 25 MG (LOPRESSOR) TABLET PO SCH ×2 (09:09→20:36)
[2019-02-07] MEDS: FUROSEMIDE 20 MG (LASIX) TAB PO SCH (09:09)
[2019-02-07] MEDS: ENOXAPARIN 40 MG/0.4 ML (LOVENOX) SYR SC SCH (09:09)
[2019-02-07] MEDS: clonazePAM 0.5 MG (KlonoPIN) TAB PO SCH ×2 (09:09→20:36)
[2019-02-07] MEDS: guaiFENesin (MUCINEX) 600 MG TAB PO SCH ×2 (09:09→20:36)
[2019-02-07] MEDS: ASPIRIN E.C. 81 MG (ECOTRIN) TAB PO SCH (09:10)
--- NOTE | 2019-02-07 10:27 | Diagnostic Imaging Report ---
INDICATION: Followup pneumonia. COMPARISON: 02/06/2019 FINDINGS: Frontal and lateral views of the chest demonstrate normal heart size and pulmonary vascularity. The lungs show progressive interval clearing on the right. There is no focal consolidation seen on either side on today's exam. There is no large effusion or pneumothorax. Bony structures show chronic deformities bilaterally. IMPRESSION: 1. No acute cardiopulmonary process is seen on today's exam. Dictated by: Dictated on workstation # [id number]
--- NOTE | 2019-02-07 11:34 | Progress Note-Hospitalist ---
Subjective HPI/CC On Admission Date Seen by Provider: Feb 07, 2019 Time Seen by Provider: 11:45 Subjective/Events-last exam Patient sleeping No major concerns per RN BM+ Eating and drinking well Poor prognosis overall Objective Exam Vital Signs Vital Signs Date Time Temp Pulse Resp B/P (MAP) Pulse Ox O2 Delivery O2 Flow Rate FiO2 02/07/19 10:16 91 Nasal Cannula 4.00 02/07/19 08:00 98.0 54 20 132/65 (87) 02/06/19 13:21 32 Capillary Refill : Less Than 3 SecondsLess Than 3 Seconds General Appearance: No Apparent Distress, WD/WN, Chronically ill, Other ( sleeping) HEENT: Normal ENT Inspection Neck: Full Range of Motion Respiratory: No Accessory Muscle Use, No Respiratory Distress, Decreased Breath Sounds Cardiovascular: Regular Rate, Rhythm, No Murmur Gastrointestinal: Non Tender, Soft Extremity: Normal Capillary Refill, Normal Inspection Neurologic/Psychiatric: Other (sleeping currently) Skin: Normal Color, Warm/Dry Lymphatic: No Adenopathy Results/Procedures Lab Laboratory Tests 02/07/19 05:25 02/07/19 05:35 Patient resulted labs reviewed. Assessment/Plan Assessment and Plan Assess & Plan/Chief Complaint Assessment: Acute on chronic respiratory failure with hypoxia on biPAP Pneumonia on Cefepime AECOPD Atelectasis on CXR Morbid obesity Plan: Poor prognosis Fall risk Continue current treatment Diagnosis/Problems Diagnosis/Problems (1) Poor prognosis Status: Acute (2) Acute and chronic respiratory failure Status: Acute (3) COPD with acute exacerbation Status: Acute (4) Hypoxia Status: Acute Clinical Quality Measures DVT/VTE Risk/Contraindication: Risk Factor Score Per Nursin RFS Level Per Nursing on Admit: 4+=Very High CHRIS EMERSON DO Feb 07, 2019 11:34
[2019-02-07 15:47] VITALS: BP 118/58
[2019-02-08 00:45] VITALS: BP 144/73
[2019-02-08] MEDS: CEFEPIME INJECTION 1,000 MG in WATER (STERILE) FOR INJECTION 10 ML IV SCH ×4 (02:19→20:26)
[2019-02-08] MEDS: RT-ALBUTEROL/IPRATROPIUM 3 ML (DUONEB) VIAL INH SCH ×6 (02:36→22:14)
[2019-02-08] MEDS: aCETylcysteine 20% (MUCOMYST) 30ML SOLN VIAL INH SCH ×6 (02:36→22:15)
[2019-02-08] MEDS: predniSONE 20 MG TAB PO SCH (06:08)
[2019-02-08] MEDS: RT-ADVAIR HFA 115/21 MCG PER PUFF IH SCH ×2 (06:44→19:17)
--- NOTE | 2019-02-08 07:04 | Pulmonary Progress Note ---
Subjective Time Seen by a Provider: 07:03 Sepsis Event Evaluation Height, Weight, BMI Height: 5'6.00" Weight: 204lbs. 0.0oz. 92.334675an; 32.9 BMI Method:Stated Exam Exam Vital Signs Date Time Temp Pulse Resp B/P (MAP) Pulse Ox O2 Delivery O2 Flow Rate FiO2 02/08/19 06:48 92 Nasal Cannula 3.00 02/08/19 06:47 92 Nasal Cannula 3.00 02/08/19 02:36 60 18 95 40.00 02/08/19 00:45 98.0 55 18 144/73 (96) 94 High Flow N/C 3.00 02/07/19 23:02 56 18 95 40.00 02/07/19 20:00 Nasal Cannula 3.00 02/07/19 19:21 94 Nasal Cannula 3.00 02/07/19 19:08 84 Nasal Cannula 02/07/19 15:47 97.6 64 18 118/58 (78) 93 High Flow N/C 3.00 02/07/19 14:32 94 Nasal Cannula 4.00 02/07/19 10:16 91 Nasal Cannula 4.00 02/07/19 08:00 NIV Bilevel 2.00 02/07/19 08:00 98.0 54 20 132/65 (87) 95 High Flow N/C 3.00 02/07/19 07:54 Nasal Cannula 4.00 02/07/19 07:53 95 Nasal Cannula 4.00 I & O 02/08/19 07:00 Intake Total 1060 ml Output Total 750 ml Balance 310 ml Height & Weight Height: 5'6.00" Weight: 204lbs. 0.0oz. 92.633567gc; 32.9 BMI Method:Stated General Appearance: No Apparent Distress, WD/WN, Chronically ill, Other ( sleeping) HEENT: Normal ENT Inspection Neck: Full Range of Motion Respiratory: No Accessory Muscle Use, No Respiratory Distress, Decreased Breath Sounds Cardiovascular: Regular Rate, Rhythm, No Murmur Capillary Refill: Less Than 3 Seconds Gastrointestinal: non tender, soft Extremity: Normal Capillary Refill, Normal Inspection Neurologic/Psychiatric: Other (sleeping currently) Skin: Normal Color, Warm/Dry Lymphatic: No Adenopathy Results Lab Laboratory Tests 02/07/19 05:25 02/07/19 05:35 Assessment/Plan Assessment/Plan Acute on chronic respiratory failure with hypoxia -BiPAP PRN and QHS Pneumonia -Cefepime -MRSA swab COPDAE -Solumedrol -SVNS Q4 Atelectasis -IS -SVNS Morbid obesity KEYONA EVANS DO Feb 08, 2019 07:04
[2019-02-08 08:00] VITALS: BP 123/71
[2019-02-08] MEDS: ENOXAPARIN 40 MG/0.4 ML (LOVENOX) SYR SC SCH (08:37)
[2019-02-08] MEDS: PANTOPRAZOLE 40 MG (PROTONIX) TAB PO SCH (08:39)
[2019-02-08] MEDS: ASPIRIN E.C. 81 MG (ECOTRIN) TAB PO SCH (08:39)
[2019-02-08] MEDS: clonazePAM 0.5 MG (KlonoPIN) TAB PO SCH ×2 (08:39→20:26)
[2019-02-08] MEDS: DIVALPROX SPRINKLE 125 MG (DEPAKOTE) CAP PO SCH ×3 (08:40→20:26)
[2019-02-08] MEDS: FUROSEMIDE 20 MG (LASIX) TAB PO SCH (08:40)
[2019-02-08] MEDS: guaiFENesin (MUCINEX) 600 MG TAB PO SCH ×2 (08:40→20:26)
[2019-02-08] MEDS: meTOprolol TARTRATE 25 MG (LOPRESSOR) TABLET PO SCH ×2 (08:40→20:26)
--- NOTE | 2019-02-08 11:20 | Progress Note-Hospitalist ---
Subjective HPI/CC On Admission Date Seen by Provider: Feb 08, 2019 Time Seen by Provider: 09:00 Subjective/Events-last exam Patient much better Awake and alert today when I see him Has been in up in a chair today Overall much improved status White count is much improved Chest x-ray reviewed no acute abnormality Eating and drinking well Review of Systems General: Fatigue Pulmonary: Dyspnea Objective Exam Vital Signs Vital Signs Date Time Temp Pulse Resp B/P (MAP) Pulse Ox O2 Delivery O2 Flow Rate FiO2 02/08/19 14:45 64 93 36 02/08/19 14:41 Nasal Cannula 3.00 02/08/19 08:00 97.9 20 123/71 (88) Capillary Refill : Less Than 3 SecondsLess Than 3 Seconds General Appearance: No Apparent Distress, WD/WN, Chronically ill, Other ( sleeping) HEENT: Normal ENT Inspection Neck: Full Range of Motion Respiratory: Normal Breath Sounds, No Accessory Muscle Use, No Respiratory Distress, Decreased Breath Sounds Cardiovascular: Regular Rate, Rhythm, No Murmur Gastrointestinal: Non Tender, Soft Extremity: Normal Capillary Refill, Normal Inspection Neurologic/Psychiatric: Other (sleeping currently) Skin: Normal Color, Warm/Dry Lymphatic: No Adenopathy Results/Procedures Lab Patient resulted labs reviewed. Assessment/Plan Assessment and Plan Assess & Plan/Chief Complaint Assessment: Acute on chronic respiratory failure with hypoxia on biPAP Pneumonia on Cefepime AECOPD Atelectasis on CXR Morbid obesity Plan: Poor prognosis Fall risk Continue current treatment Check labs in am Diagnosis/Problems Diagnosis/Problems (1) Poor prognosis Status: Acute (2) Acute and chronic respiratory failure Status: Acute (3) COPD with acute exacerbation Status: Acute (4) Hypoxia Status: Acute Clinical Quality Measures DVT/VTE Risk/Contraindication: Risk Factor Score Per Nursin RFS Level Per Nursing on Admit: 4+=Very High CHRIS EMERSON DO Feb 08, 2019 11:20
[2019-02-08 14:45] VITALS: BP 123/71
[2019-02-08 15:25] VITALS: BP 115/60
[2019-02-09 00:07] VITALS: BP 117/67
[2019-02-09] MEDS: RT-ALBUTEROL/IPRATROPIUM 3 ML (DUONEB) VIAL INH SCH ×4 (01:37→15:04)
[2019-02-09] MEDS: aCETylcysteine 20% (MUCOMYST) 30ML SOLN VIAL INH SCH ×4 (01:37→15:04)
[2019-02-09] MEDS: CEFEPIME INJECTION 1,000 MG in WATER (STERILE) FOR INJECTION 10 ML IV SCH ×3 (02:50→14:58)
[2019-02-09] MEDS: predniSONE 20 MG TAB PO SCH (06:00)
[2019-02-09 06:33] LABS: BASOPHILS % (AUTO) 0 % (0-10); EOSINOPHILS % (AUTO) 0 % (0-10); HEMATOCRIT 50 % (40-54); HEMOGLOBIN 15.7 G/DL (13.3-17.7); LYMPHOCYTES # (AUTO) 2.3 X 10^3 (1.0-4.0); LYMPHOCYTES % (AUTO) 22 % (12-44); MEAN CORPUSCULAR HEMOGLOBIN 28 PG (25-34); MEAN CORPUSCULAR HGB CONC 32 G/DL (32-36); MEAN CORPUSCULAR VOLUME 88 FL (80-99); MEAN PLATELET VOLUME 11.5 FL (7.4-10.4); MONOCYTES # (AUTO) 0.9 X 10^3 (0.0-1.0); MONOCYTES % (AUTO) 9 % (0-12); NEUTROPHILS # (AUTO) 7.1 X 10^3 (1.8-7.8); NEUTROPHILS % (AUTO) 69 % (42-75); PLATELET COUNT 144 10^3/uL (130-400); RED CELL DISTRIBUTION WIDTH 16.8 % (10.0-14.5); WHITE BLOOD COUNT 10.3 10^3/uL (4.3-11.0)
[2019-02-09 06:59] LABS: ALANINE AMINOTRANSFERASE 28 U/L (0-55); ALBUMIN 3.2 GM/DL (3.2-4.5); ALKALINE PHOSPHATASE 54 U/L (40-136); BILIRUBIN,TOTAL 0.4 MG/DL (0.1-1.0); BUN/CREATININE RATIO 29; CALCIUM 8.8 MG/DL (8.5-10.1); CARBON DIOXIDE 28 MMOL/L (21-32); CHLORIDE 100 MMOL/L (98-107); CREATININE SERUM 0.66 MG/DL (0.60-1.30); GFR ESTIMATED > 60; GLUCOSE 86 MG/DL (70-105); POTASSIUM 3.8 MMOL/L (3.6-5.0); SODIUM 139 MMOL/L (135-145); TOTAL PROTEIN 5.8 GM/DL (6.4-8.2)
[2019-02-09 07:35] VITALS: BP 185/91
--- NOTE | 2019-02-09 08:14 | Progress Note (SOAP) ---
Subjective Time Seen by a Provider: 08:12 Subjective/Events-last exam Patient feeling better. Patient walking around. Patient would like to go back to residential today. Patient eating. Patient afebrile Objective Exam Vital Signs Date Time Temp Pulse Resp B/P (MAP) Pulse Ox O2 Delivery O2 Flow Rate FiO2 02/09/19 07:35 98.0 90 20 185/91 (122) 93 High Flow N/C 5.00 02/09/19 06:20 91 Nasal Cannula 4.00 02/09/19 01:37 55 17 95 40.00 02/09/19 00:07 98.4 55 19 117/67 (84) 93 NIV Bilevel 02/08/19 22:14 58 16 96 40.00 02/08/19 20:00 92 Nasal Cannula 5.00 02/08/19 19:16 86 Nasal Cannula 3.00 02/08/19 15:25 98.3 63 20 115/60 (78) 93 High Flow N/C 3.00 02/08/19 14:45 64 93 36 02/08/19 14:41 93 Nasal Cannula 3.00 02/08/19 10:32 93 Nasal Cannula 3.00 I & O 02/09/19 07:00 Intake Total 1955 ml Output Total 2050 ml Balance -95 ml Capillary Refill : Less Than 3 SecondsLess Than 3 Seconds General Appearance: No Apparent Distress, WD/WN HEENT: Normal ENT Inspection Neck: Full Range of Motion, Normal Inspection Respiratory: No Accessory Muscle Use, No Respiratory Distress, Decreased Breath Sounds Cardiovascular: Regular Rate, Rhythm, No Murmur Gastrointestinal: non tender, soft Results Lab Laboratory Tests 02/09/19 05:43 Laboratory Tests 02/09/19 05:43: White Blood Count 10.3, Red Blood Count 5.68, Hemoglobin 15.7, Hematocrit 50, Mean Corpuscular Volume 88, Mean Corpuscular Hemoglobin 28, Mean Corpuscular Hemoglobin Concent 32, Red Cell Distribution Width 16.8H, Platelet Count 144, Mean Platelet Volume 11.5H, Neutrophils (%) (Auto) 69, Lymphocytes (%) (Auto) 22 , Monocytes (%) (Auto) 9, Eosinophils (%) (Auto) 0, Basophils (%) (Auto) 0, Neutrophils # (Auto) 7.1, Lymphocytes # (Auto) 2.3, Monocytes # (Auto) 0.9, Eosinophils # (Auto) 0.0, Basophils # (Auto) 0.0, Sodium Level 139, Potassium Level 3.8, Chloride Level 100, Carbon Dioxide Level 28, Anion Gap 11, Blood Urea Nitrogen 19H, Creatinine 0.66, Estimat Glomerular Filtration Rate > 60, BUN /Creatinine Ratio 29, Glucose Level 86, Calcium Level 8.8, Corrected Calcium 9.4 , Total Bilirubin 0.4, Aspartate Amino Transf (AST/SGOT) 16, Alanine Aminotransferase (ALT/SGPT) 28, Alkaline Phosphatase 54, Total Protein 5.8L, Albumin 3.2 Microbiology 02/03/19 Blood Culture - Final, Complete No growth 02/04/19 MRSA Screen - Final, Complete MRSA not isolated 02/03/19 Urine Culture - Final, Complete 3 or more isolates Assessment/Plan Assessment/Plan Assess & Plan/Chief Complaint [place] chronic respiratory failure with hypoxia. Pneumonia. COPD with acute exacerbation. Atelectasis. Tobaccoism. Leukocytosis patient on Solu-Medrol. . . Acute and chronic respiratory failure with hypoxia. Pneumonia. COPD with acute exacerbation. Atelectasis. Tobaccoism. Leukocytosis coming down better decreased Solu-Medrol. . 02/09/19. Acute and chronic respiratory failure with hypoxia resolved. COPD with acute exacerbation. Atelectasis. Morbid obesity. Patient improved Clinical Quality Measures Admission Status Admission Dx COPD with acute exacerbation. Hypoxia. Hypertension. Tobaccoism. Noncompliance. Could have lung infiltrate DVT/VTE Risk/Contraindication: Risk Factor Score Per Nursin RFS Level Per Nursing on Admit: 4+=Very High ART CASANOVA DO Feb 09, 2019 08:14
[2019-02-09] MEDS: ENOXAPARIN 40 MG/0.4 ML (LOVENOX) SYR SC SCH (08:45)
[2019-02-09] MEDS: PANTOPRAZOLE 40 MG (PROTONIX) TAB PO SCH (08:45)
[2019-02-09] MEDS: clonazePAM 0.5 MG (KlonoPIN) TAB PO SCH (08:45)
[2019-02-09] MEDS: guaiFENesin (MUCINEX) 600 MG TAB PO SCH (08:45)
[2019-02-09] MEDS: FUROSEMIDE 20 MG (LASIX) TAB PO SCH (08:46)
[2019-02-09] MEDS: DIVALPROX SPRINKLE 125 MG (DEPAKOTE) CAP PO SCH ×2 (08:46→14:31)
[2019-02-09] MEDS: meTOprolol TARTRATE 25 MG (LOPRESSOR) TABLET PO SCH (08:46)
[2019-02-09] MEDS: ASPIRIN E.C. 81 MG (ECOTRIN) TAB PO SCH (08:46)
[2019-02-09] MEDS: RT-ADVAIR HFA 115/21 MCG PER PUFF IH SCH (10:44)
[2019-02-09] MEDS ORDERED: CEFD300C3 PO (13:40)
--- NOTE | 2019-02-09 13:43 | NUR ---
DISCHARGE PLANNING: patient is being discharged today back to his previous placement at [facility] and [facility]. Spoke with SHUKRI Grier and she is to call this RN back or have the transportation design engineer call to arrange oyster picker time. RN is to call Abhijit to get discharge orders. Clinical information faxed by SHUKRI Dennis. Will await transportation time...and finalized orders. Addendum: 02/09/19 at 1426 by ARELI FAITH RN 2:25 I have yet to hear from [facility] on transportation time. I called and attempted again to get a time. Left Alyson our RNs number with [facility] to complete arrangements for transportation
[2019-02-09 15:35] VITALS: BP 159/69
[2019-02-09 17:50] VITALS: BP 159/69
--- NOTE | 2019-02-10 07:46 | Discharge Summary ---
Diagnosis/Chief Complaint Date of Admission Feb 03, 2019 at 14:09 Date of Discharge Feb 09, 2019 at 17:55 Discharge Time: 07:44 Discharge Diagnosis Pneumonia. COPD with acute exacerbation. Hypoxia. Tobaccoism. Atelectasis. Hypertension. Morbid obesity. 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 Nicotine dependence. Noncompliance. Reason [facility] 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 Patient transferred to emergency room. Patient put on 6 L of nasal oxygen. Patient previously using 2 L. Patient has history of noncompliance. Patient short of breath and wheezing. Chest x-ray may show infiltrate. Patient coughing and wheezing in still smoking. Patient admitted Discharge Summary Consultations Pulmonology Discharge Physical Examination Allergies: Coded Allergies: No Known Drug Allergies (Unverified , 12/07/16) Vitals & I&Os Vital Signs Date Time Temp Pulse Resp B/P (MAP) Pulse Ox O2 Delivery O2 Flow Rate FiO2 02/09/19 17:50 66 20 159/69 96 High Flow N/C 3.00 02/09/19 15:35 97.1 02/08/19 14:45 36 Hospital Course Patient did better and breathing better and wanted to return to the nursing facility Labs (last 24 hrs) Laboratory Tests 02/03/19 10:08: White Blood Count 8.0, Red Blood Count 5.78, Hemoglobin 16.3, Hematocrit 53, Mean Corpuscular Volume 92, Mean Corpuscular Hemoglobin 28, Mean Corpuscular Hemoglobin Concent 31L, Red Cell Distribution Width 17.2H, Platelet Count 183, Mean Platelet Volume 10.8H, Neutrophils (%) (Auto) 64, Lymphocytes (%) (Auto) 22 , Monocytes (%) (Auto) 13H, Eosinophils (%) (Auto) 1, Basophils (%) (Auto) 1, Neutrophils # (Auto) 5.1, Lymphocytes # (Auto) 1.7, Monocytes # (Auto) 1.0, Eosinophils # (Auto) 0.1, Basophils # (Auto) 0.0, Prothrombin Time 12.0L, INR Comment 0.9, Activated Partial Thromboplast Time 30, Sodium Level 141, Potassium Level 4.6, Chloride Level 97L, Carbon Dioxide Level 36H, Anion Gap 8, Blood Urea Nitrogen 8, Creatinine 0.76, Estimat Glomerular Filtration Rate > 60 , BUN/Creatinine Ratio 11, Glucose Level 98, Lactic Acid Level 0.98, Calcium Level 9.3, Corrected Calcium 9.5, Total Bilirubin 0.5, Aspartate Amino Transf ( AST/SGOT) 18, Alanine Aminotransferase (ALT/SGPT) 19, Alkaline Phosphatase 78, C -Reactive Protein High Sensitivity 1.24H, Total Protein 7.0, Albumin 3.7 02/03/19 11:10: Urine Color YELLOW, Urine Clarity CLEAR, Urine pH 6, Urine Specific [place] 1.020, Urine Protein 1+H, Urine Glucose (UA) NEGATIVE, Urine Ketones NEGATIVE, Urine Nitrite NEGATIVE, Urine Bilirubin NEGATIVE, Urine Urobilinogen NORMAL, Urine Leukocyte Esterase 1+H, Urine RBC (Auto) 2+H, Urine RBC 2-5H, Urine WBC 0- 2, Urine Squamous Epithelial Cells RARE, Urine Crystals NONE, Urine Bacteria TRACE, Urine Casts NONE, Urine Mucus SMALLH, Urine Culture Indicated NO 02/04/19 04:35: White Blood Count 12.9H, Red Blood Count 5.55, Hemoglobin 15.8, Hematocrit 51, Mean Corpuscular Volume 91, Mean Corpuscular Hemoglobin 29, Mean Corpuscular Hemoglobin Concent 31L, Red Cell Distribution Width 17.2H, Platelet Count 183, Mean Platelet Volume 10.7H, Neutrophils (%) (Auto) 92H, Lymphocytes (%) (Auto) 6L, Monocytes (%) (Auto) 1, Eosinophils (%) (Auto) 0, Basophils (%) (Auto) 0, Neutrophils # (Auto) 11.9H, Lymphocytes # (Auto) 0.8L, Monocytes # (Auto) 0.2, Eosinophils # (Auto) 0.0, Basophils # (Auto) 0.0, Sodium Level 143, Potassium Level 5.0, Chloride Level 100, Carbon Dioxide Level 30, Anion Gap 13, Blood Urea Nitrogen 13, Creatinine 0.75, Estimat Glomerular Filtration Rate > 60, BUN/ Creatinine Ratio 17, Glucose Level 143H, Calcium Level 9.4, Corrected Calcium 9.8, Total Bilirubin 0.4, Aspartate Amino Transf (AST/SGOT) 14, Alanine Aminotransferase (ALT/SGPT) 16, Alkaline Phosphatase 74, Total Protein 6.6, Albumin 3.5, Neutrophils % (Manual) 74, Lymphocytes % (Manual) 4, Monocytes % ( Manual) 2, Eosinophils % (Manual) 0, Basophils % (Manual) 0, Band Neutrophils 16 , Reactive Lymphocytes 4, Polychromasia SLIGHT, Anisocytosis SLIGHT, Macrocytosis SLIGHT 02/05/19 05:50: White Blood Count 20.6H, Red Blood Count 5.18, Hemoglobin 14.9, Hematocrit 47, Mean Corpuscular Volume 91, Mean Corpuscular Hemoglobin 29, Mean Corpuscular Hemoglobin Concent 32, Red Cell Distribution Width 16.8H, Platelet Count 170, Mean Platelet Volume 11.1H, Neutrophils (%) (Auto) 91H, Lymphocytes (%) (Auto) 7L, Monocytes (%) (Auto) 2, Eosinophils (%) (Auto) 0, Basophils (%) (Auto) 0, Neutrophils # (Auto) 18.8H, Lymphocytes # (Auto) 1.4, Monocytes # (Auto) 0.5, Eosinophils # (Auto) 0.0, Basophils # (Auto) 0.0, Sodium Level 138, Potassium Level 5.0, Chloride Level 97L, Carbon Dioxide Level 30, Anion Gap 11, Blood Urea Nitrogen 18, Creatinine 0.70, Estimat Glomerular Filtration Rate > 60, BUN/ Creatinine Ratio 26, Glucose Level 137H, Calcium Level 9.0, Corrected Calcium 9.6, Total Bilirubin 0.4, Aspartate Amino Transf (AST/SGOT) 15, Alanine Aminotransferase (ALT/SGPT) 15, Alkaline Phosphatase 63, Total Protein 5.9L, Albumin 3.3, Neutrophils % (Manual) 88, Lymphocytes % (Manual) 11, Monocytes % ( Manual) 1, Spherocytes MODERATE 02/06/19 06:25: White Blood Count 16.5H, Red Blood Count 5.26, Hemoglobin 14.9, Hematocrit 47, Mean Corpuscular Volume 89, Mean Corpuscular Hemoglobin 28, Mean Corpuscular Hemoglobin Concent 32, Red Cell Distribution Width 17.1H, Platelet Count 155, Mean Platelet Volume 10.2, Neutrophils (%) (Auto) 87H, Lymphocytes (%) (Auto) 7L , Monocytes (%) (Auto) 6, Eosinophils (%) (Auto) 0, Basophils (%) (Auto) 0, Neutrophils # (Auto) 14.3H, Lymphocytes # (Auto) 1.2, Monocytes # (Auto) 1.1H, Eosinophils # (Auto) 0.0, Basophils # (Auto) 0.0, Sodium Level 138, Potassium Level 4.7, Chloride Level 97L, Carbon Dioxide Level 31, Anion Gap 10, Blood Urea Nitrogen 20H, Creatinine 0.71, Estimat Glomerular Filtration Rate > 60, BUN /Creatinine Ratio 28, Glucose Level 113H, Calcium Level 8.9 02/07/19 05:25: White Blood Count 11.4H, Red Blood Count 5.50, Hemoglobin 15.4, Hematocrit 49, Mean Corpuscular Volume 88, Mean Corpuscular Hemoglobin 28, Mean Corpuscular Hemoglobin Concent 32, Red Cell Distribution Width 17.0H, Platelet Count 147, Mean Platelet Volume 10.4 02/07/19 05:35: Sodium Level 139, Potassium Level 4.1, Chloride Level 97L, Carbon Dioxide Level 31, Anion Gap 11, Blood Urea Nitrogen 21H, Creatinine 0.70, Estimat Glomerular Filtration Rate > 60, BUN/Creatinine Ratio 30, Glucose Level 81, Calcium Level 9.0 02/09/19 05:43: White Blood Count 10.3, Red Blood Count 5.68, Hemoglobin 15.7, Hematocrit 50, Mean Corpuscular Volume 88, Mean Corpuscular Hemoglobin 28, Mean Corpuscular Hemoglobin Concent 32, Red Cell Distribution Width 16.8H, Platelet Count 144, Mean Platelet Volume 11.5H, Neutrophils (%) (Auto) 69, Lymphocytes (%) (Auto) 22 , Monocytes (%) (Auto) 9, Eosinophils (%) (Auto) 0, Basophils (%) (Auto) 0, Neutrophils # (Auto) 7.1, Lymphocytes # (Auto) 2.3, Monocytes # (Auto) 0.9, Eosinophils # (Auto) 0.0, Basophils # (Auto) 0.0, Sodium Level 139, Potassium Level 3.8, Chloride Level 100, Carbon Dioxide Level 28, Anion Gap 11, Blood Urea Nitrogen 19H, Creatinine 0.66, Estimat Glomerular Filtration Rate > 60, BUN /Creatinine Ratio 29, Glucose Level 86, Calcium Level 8.8, Corrected Calcium 9.4 , Total Bilirubin 0.4, Aspartate Amino Transf (AST/SGOT) 16, Alanine Aminotransferase (ALT/SGPT) 28, Alkaline Phosphatase 54, Total Protein 5.8L, Albumin 3.2 Microbiology 02/03/19 Blood Culture - Final, Complete No growth 02/04/19 MRSA Screen - Final, Complete MRSA not isolated 02/03/19 Urine Culture - Final, Complete 3 or more isolates Laboratory Tests 02/03/19 10:08 02/04/19 04:35 02/05/19 05:50 02/06/19 06:25 02/07/19 05:25 02/07/19 05:35 02/09/19 05:43 Pending Labs Microbiology Date/Time Source Procedure Growth Status 02/03/19 10:46 Peripheral Lt Hand Blood Culture - Final No growth Complete 02/03/19 10:08 Peripheral Lt Ac Blood Culture - Final No growth Complete 02/04/19 14:00 Nasal MRSA Screen - Final MRSA not isolated Complete 02/03/19 11:10 Urine Clean Catch Urine Culture - Final 3 or more isolates Complete Laboratory Tests 02/03/19 10:08: White Blood Count 8.0, Red Blood Count 5.78, Hemoglobin 16.3, Hematocrit 53, Mean Corpuscular Volume 92, Mean Corpuscular Hemoglobin 28, Mean Corpuscular Hemoglobin Concent 31, Red Cell Distribution Width 17.2, Platelet Count 183, Mean Platelet Volume 10.8, Neutrophils (%) (Auto) 64, Lymphocytes (%) (Auto) 22 , Monocytes (%) (Auto) 13, Eosinophils (%) (Auto) 1, Basophils (%) (Auto) 1, Neutrophils # (Auto) 5.1, Lymphocytes # (Auto) 1.7, Monocytes # (Auto) 1.0, Eosinophils # (Auto) 0.1, Basophils # (Auto) 0.0, Prothrombin Time 12.0, INR Comment 0.9, Activated Partial Thromboplast Time 30, Sodium Level 141, Potassium Level 4.6, Chloride Level 97, Carbon Dioxide Level 36, Anion Gap 8, Blood Urea Nitrogen 8, Creatinine 0.76, Estimat Glomerular Filtration Rate > 60 , BUN/Creatinine Ratio 11, Glucose Level 98, Lactic Acid Level 0.98, Calcium Level 9.3, Corrected Calcium 9.5, Total Bilirubin 0.5, Aspartate Amino Transf ( AST/SGOT) 18, Alanine Aminotransferase (ALT/SGPT) 19, Alkaline Phosphatase 78, C -Reactive Protein High Sensitivity 1.24, Total Protein 7.0, Albumin 3.7 02/03/19 11:10: Urine Color YELLOW, Urine Clarity CLEAR, Urine pH 6, Urine Specific [place] 1.020, Urine Protein 1+, Urine Glucose (UA) NEGATIVE, Urine Ketones NEGATIVE, Urine Nitrite NEGATIVE, Urine Bilirubin NEGATIVE, Urine Urobilinogen NORMAL, Urine Leukocyte Esterase 1+, Urine RBC (Auto) 2+, Urine RBC 2-5, Urine WBC 0-2, Urine Squamous Epithelial Cells RARE, Urine Crystals NONE, Urine Bacteria TRACE , Urine Casts NONE, Urine Mucus SMALL, Urine Culture Indicated NO 02/04/19 04:35: White Blood Count 12.9, Red Blood Count 5.55, Hemoglobin 15.8, Hematocrit 51, Mean Corpuscular Volume 91, Mean Corpuscular Hemoglobin 29, Mean Corpuscular Hemoglobin Concent 31, Red Cell Distribution Width 17.2, Platelet Count 183, Mean Platelet Volume 10.7, Neutrophils (%) (Auto) 92, Lymphocytes (%) (Auto) 6, Monocytes (%) (Auto) 1, Eosinophils (%) (Auto) 0, Basophils (%) (Auto) 0, Neutrophils # (Auto) 11.9, Lymphocytes # (Auto) 0.8, Monocytes # (Auto) 0.2, Eosinophils # (Auto) 0.0, Basophils # (Auto) 0.0, Sodium Level 143, Potassium Level 5.0, Chloride Level 100, Carbon Dioxide Level 30, Anion Gap 13, Blood Urea Nitrogen 13, Creatinine 0.75, Estimat Glomerular Filtration Rate > 60, BUN/ Creatinine Ratio 17, Glucose Level 143, Calcium Level 9.4, Corrected Calcium 9.8 , Total Bilirubin 0.4, Aspartate Amino Transf (AST/SGOT) 14, Alanine Aminotransferase (ALT/SGPT) 16, Alkaline Phosphatase 74, Total Protein 6.6, Albumin 3.5, Neutrophils % (Manual) 74, Lymphocytes % (Manual) 4, Monocytes % ( Manual) 2, Eosinophils % (Manual) 0, Basophils % (Manual) 0, Band Neutrophils 16 , Reactive Lymphocytes 4, Polychromasia SLIGHT, Anisocytosis SLIGHT, Macrocytosis SLIGHT 02/05/19 05:50: White Blood Count 20.6, Red Blood Count 5.18, Hemoglobin 14.9, Hematocrit 47, Mean Corpuscular Volume 91, Mean Corpuscular Hemoglobin 29, Mean Corpuscular Hemoglobin Concent 32, Red Cell Distribution Width 16.8, Platelet Count 170, Mean Platelet Volume 11.1, Neutrophils (%) (Auto) 91, Lymphocytes (%) (Auto) 7, Monocytes (%) (Auto) 2, Eosinophils (%) (Auto) 0, Basophils (%) (Auto) 0, Neutrophils # (Auto) 18.8, Lymphocytes # (Auto) 1.4, Monocytes # (Auto) 0.5, Eosinophils # (Auto) 0.0, Basophils # (Auto) 0.0, Sodium Level 138, Potassium Level 5.0, Chloride Level 97, Carbon Dioxide Level 30, Anion Gap 11, Blood Urea Nitrogen 18, Creatinine 0.70, Estimat Glomerular Filtration Rate > 60, BUN/ Creatinine Ratio 26, Glucose Level 137, Calcium Level 9.0, Corrected Calcium 9.6 , Total Bilirubin 0.4, Aspartate Amino Transf (AST/SGOT) 15, Alanine Aminotransferase (ALT/SGPT) 15, Alkaline Phosphatase 63, Total Protein 5.9, Albumin 3.3, Neutrophils % (Manual) 88, Lymphocytes % (Manual) 11, Monocytes % ( Manual) 1, Spherocytes MODERATE 02/06/19 06:25: White Blood Count 16.5, Red Blood Count 5.26, Hemoglobin 14.9, Hematocrit 47, Mean Corpuscular Volume 89, Mean Corpuscular Hemoglobin 28, Mean Corpuscular Hemoglobin Concent 32, Red Cell Distribution Width 17.1, Platelet Count 155, Mean Platelet Volume 10.2, Neutrophils (%) (Auto) 87, Lymphocytes (%) (Auto) 7, Monocytes (%) (Auto) 6, Eosinophils (%) (Auto) 0, Basophils (%) (Auto) 0, Neutrophils # (Auto) 14.3, Lymphocytes # (Auto) 1.2, Monocytes # (Auto) 1.1, Eosinophils # (Auto) 0.0, Basophils # (Auto) 0.0, Sodium Level 138, Potassium Level 4.7, Chloride Level 97, Carbon Dioxide Level 31, Anion Gap 10, Blood Urea Nitrogen 20, Creatinine 0.71, Estimat Glomerular Filtration Rate > 60, BUN/ Creatinine Ratio 28, Glucose Level 113, Calcium Level 8.9 02/07/19 05:25: White Blood Count 11.4, Red Blood Count 5.50, Hemoglobin 15.4, Hematocrit 49, Mean Corpuscular Volume 88, Mean Corpuscular Hemoglobin 28, Mean Corpuscular Hemoglobin Concent 32, Red Cell Distribution Width 17.0, Platelet Count 147, Mean Platelet Volume 10.4 02/07/19 05:35: Sodium Level 139, Potassium Level 4.1, Chloride Level 97, Carbon Dioxide Level 31, Anion Gap 11, Blood Urea Nitrogen 21, Creatinine 0.70, Estimat Glomerular Filtration Rate > 60, BUN/Creatinine Ratio 30, Glucose Level 81, Calcium Level 9.0 02/09/19 05:43: White Blood Count 10.3, Red Blood Count 5.68, Hemoglobin 15.7, Hematocrit 50, Mean Corpuscular Volume 88, Mean Corpuscular Hemoglobin 28, Mean Corpuscular Hemoglobin Concent 32, Red Cell Distribution Width 16.8, Platelet Count 144, Mean Platelet Volume 11.5, Neutrophils (%) (Auto) 69, Lymphocytes (%) (Auto) 22 , Monocytes (%) (Auto) 9, Eosinophils (%) (Auto) 0, Basophils (%) (Auto) 0, Neutrophils # (Auto) 7.1, Lymphocytes # (Auto) 2.3, Monocytes # (Auto) 0.9, Eosinophils # (Auto) 0.0, Basophils # (Auto) 0.0, Sodium Level 139, Potassium Level 3.8, Chloride Level 100, Carbon Dioxide Level 28, Anion Gap 11, Blood Urea Nitrogen 19, Creatinine 0.66, Estimat Glomerular Filtration Rate > 60, BUN/ Creatinine Ratio 29, Glucose Level 86, Calcium Level 8.8, Corrected Calcium 9.4 , Total Bilirubin 0.4, Aspartate Amino Transf (AST/SGOT) 16, Alanine Aminotransferase (ALT/SGPT) 28, Alkaline Phosphatase 54, Total Protein 5.8, Albumin 3.2 Discharge Home Medications: Active Scripts Active Cefdinir 300 Mg Capsule 300 Mg PO BID Reported Nicotine Patch (Nicotine) 1 Each Patch.td24 21 Mg TD DAILY Tylenol (Acetaminophen) 325 Mg Tablet 650 Mg PO Q4H PRN TAKES 2 (325MG) TABLETS Aripiprazole 15 Mg Tablet 15 Mg PO DAILY Debrox (Carbamide Peroxide) 15 Ml Drops 5 Drops EACH EAR Q12H PRN Multi-Vitamin Daily (Multivitamin) 1 Each Tablet 1 Tab PO DAILY Zofran (Ondansetron HCl) 4 Mg Tab 4 Mg PO Q4H PRN Refresh Tears (Carboxymethylcellulose Sodium) 15 Ml Drops 1 Drop OU Q4H PRN Clonazepam 0.5 Mg Tablet 0.5 Mg PO BID Divalproex Sodium 125 Mg Cap.sprink 125 Mg PO TID Benzonatate 200 Mg Capsule 200 Mg PO Q8H PRN Symbicort 160-4.5 Mcg Inhaler (Budesonide/Formoterol Fumarate) 10.2 Gm Hfa.aer.ad 2 Puff IH BID Protonix (Pantoprazole Sodium) 40 Mg Tablet.dr 40 Mg PO DAILY Metoprolol Tartrate 25 Mg Tablet 25 Mg PO BID HOLD FOR SYSTOLIC BP < 100 Lexapro (Escitalopram Oxalate) 20 Mg Tablet 40 Mg PO DAILY TAKES 2 (20MG) TABLETS Lasix (Furosemide) 20 Mg Tablet 20 Mg PO DAILY Iprat-Albut 0.5-3(2.5) mg/3 ml (Ipratropium/Albuterol Sulfate) 3 Ml Ampul.neb 3 Ml NEB Q6H PRN Aspirin EC (Aspirin) 81 Mg Tablet.dr 81 Mg PO DAILY Tylenol (Acetaminophen) 325 Mg Tablet 650 Mg PO Q6H PRN TAKES 2 (325MG) TABLETS Instructions to patient/family Please see electronic discharge instructions given to patient. Clinical Quality Measures DVT/VTE Risk/Contraindication: Risk Factor Score Per Nursin RFS Level Per Nursing on Admit: 4+=Very High ART CASANOVA DO Feb 10, 2019 07:46
== END 2019-02-09 17:55 | DRG 189 ==
LOC: EDUNIT# 09:38 → ER 09:39 → 4TH 14:09
PROVIDERS: ADMIT Family Medicine; ATTEND Family Medicine
DX: J96.21 Acute and chronic respiratory failure with hypoxia (principal); J18.9 Pneumonia, unspecified organism; J44.1 Chronic obstructive pulmonary disease with (acute) exacerbation; J98.11 Atelectasis; C18.9 Malignant neoplasm of colon, unspecified; J44.0 Chronic obstructive pulmonary disease with (acute) lower respiratory infection; E66.01 Morbid (severe) obesity due to excess calories; Z68.32 Body mass index [BMI] 32.0-32.9, adult; I10 Essential (primary) hypertension; F17.210 Nicotine dependence, cigarettes, uncomplicated; Z91.19 Patient's noncompliance with other medical treatment and regimen; Z99.81 Dependence on supplemental oxygen; K21.9 Gastro-esophageal reflux disease without esophagitis; B19.20 Unspecified viral hepatitis C without hepatic coma; F41.9 Anxiety disorder, unspecified; F32.9 Major depressive disorder, single episode, unspecified; D72.829 Elevated white blood cell count, unspecified
CPT/HCPCS: 36415; 71045; 71046; 80048; 80053; 81000; 83605; 85007; 85025; 85027; 85610; 85730; 86141; 87040; 87081; 87088; 94640; 94644; 94660; 94664; 94760; 96374; 96375

== ENCOUNTER → 2019-03-05 | Outpatient (CLI) | payer MEDICAID ==
[~2019-03-05] MED LIST changes: +ARIP15TA9 PO; +NICO-588 TD
--- NOTE | 2019-03-05 12:47 | Diagnostic Imaging Report ---
INDICATION: Shortness breath and congestion. TIME OF EXAM: 10:48 AM Correlation is made with prior study from 02/07/2019. FINDINGS: The heart size is stable. Chronic rib deformities on the right appear stable. No infiltrates are seen. There is some slight blunting of the right costophrenic angle which may indicate some minimal pleural fluid or pleural thickening. Pulmonary vascularity is normal. There is no pneumothorax. IMPRESSION: Minimal right pleural fluid or pleural thickening. The study is otherwise unremarkable. Dictated by: Dictated on workstation # [id number]
== END ==
LOC: RAD 10:33
PROVIDERS: ATTEND Family Medicine
DX: R06.02 Shortness of breath (principal); R09.89 Other specified symptoms and signs involving the circulatory and respiratory systems
CPT/HCPCS: 71046

== ENCOUNTER 2019-03-09 12:39 | Inpatient (IN) | payer MEDICAID ==
[~2019-03-09] VITALS: Ht 177.8 cm; Wt 96.0 kg
[2019-03-09] VITALS (15 sets, daily range): BP systolic 85–145; BP diastolic 54–82
[2019-03-09 12:58] LABS: ABG BASE EXCESS 15.1 MMOL/L (-2.5-2.5); ABG OXYGEN SATURATION 100 % (94-100); ABG PO2 146 MMHG (79-93); ABG TCO2 44.7 MMOL/L (21.0-31.0)
[2019-03-09] MEDS ORDERED: RT-ALBUTEROL SULF 2.5 MG/3 ML PRE-MIX VIAL INH SCH (13:00)
[2019-03-09] MEDS ORDERED: RT-ALBUTEROL/IPRATROPIUM 3 ML (DUONEB) VIAL ONE (13:05)
[2019-03-09 13:06] LABS: ABG PCO2 85 MMHG (35-45); ABG PH 7.31 (7.37-7.43)
--- NOTE | 2019-03-09 13:06 | NUR ---
brock from lab called ph 7.31 co2 [address] notified at 1307. he gave orders to resp therapy
[2019-03-09 13:07] LABS: ALLENS TEST YES-POS; INSPIRED O2 70% BIPAP; PATIENT TEMP 97.3; VENTILATOR NO
[2019-03-09 13:13] LABS: BASOPHILS % (AUTO) 0 % (0-10); EOSINOPHILS # (AUTO) 0.4 10^3/uL (0.0-0.3); EOSINOPHILS % (AUTO) 4 % (0-10); HEMATOCRIT 45 % (40-54); HEMOGLOBIN 14.1 G/DL (13.3-17.7); LYMPHOCYTES # (AUTO) 1.9 X 10^3 (1.0-4.0); LYMPHOCYTES % (AUTO) 22 % (12-44); MEAN CORPUSCULAR HEMOGLOBIN 28 PG (25-34); MEAN CORPUSCULAR HGB CONC 31 G/DL (32-36); MEAN CORPUSCULAR VOLUME 89 FL (80-99); MONOCYTES % (AUTO) 11 % (0-12); NEUTROPHILS # (AUTO) 5.4 X 10^3 (1.8-7.8); NEUTROPHILS % (AUTO) 63 % (42-75); PLATELET COUNT 163 10^3/uL (130-400); RED CELL DISTRIBUTION WIDTH 20.2 % (10.0-14.5); WHITE BLOOD COUNT 8.6 10^3/uL (4.3-11.0)
[2019-03-09 13:22] LABS: ALANINE AMINOTRANSFERASE 14 U/L (0-55); ALBUMIN 3.6 GM/DL (3.2-4.5); ALKALINE PHOSPHATASE 59 U/L (40-136); BILIRUBIN,TOTAL 0.6 MG/DL (0.1-1.0); BUN/CREATININE RATIO 13; CALCIUM 8.8 MG/DL (8.5-10.1); CARBON DIOXIDE 34 MMOL/L (21-32); CHLORIDE 93 MMOL/L (98-107); CREATININE SERUM 0.94 MG/DL (0.60-1.30); GFR ESTIMATED > 60; GLUCOSE 82 MG/DL (70-105); POTASSIUM 5.4 MMOL/L (3.6-5.0); SODIUM 140 MMOL/L (135-145); TOTAL PROTEIN 7.3 GM/DL (6.4-8.2)
--- NOTE | 2019-03-09 13:23 | ED Dyspnea ---
General Chief Complaint: Respiratory Problems Stated Complaint: SOA Nursing Triage Note: arrived via ems on cpap 66%fio2 o2 sat 99% reported respiritory distress at [facility] where he is a resident Source of Information: EMS Exam Limitations: No Limitations History of Present Illness Date Seen by Provider: March 09, 2019 Time Seen by Provider: 06:56 Initial Comments To ER from [facility] with reports of dyspnea and hypoxia. Starting today, senior care staff noticed that his oxygen saturation would not go above 60%. In fact upon EMS arrival he was at 66% on 5 L. They initiated C Pap at 100% FiO2 and his oxygen saturations ultimately increased to 100%. He is fairly lethargic and poorly responsive. He does open his eyes when asked questions and when asked if he feels as though he is improving at all he says yes. He does have a history of COPD, quit smoking within the past week Severity: Moderate Activities at Onset: Activity Allergies and Home Medications Allergies Coded Allergies: No Known Drug Allergies (Unverified , 03/09/19) Home Medications Acetaminophen 325 Mg Tablet, 650 MG PO Q6H PRN for PAIN-MILD, (Reported) TAKES 2 (325MG) TABLETS Acetaminophen 325 Mg Tablet, 650 MG PO Q4H PRN for FEVER, (Reported) TAKES 2 (325MG) TABLETS Aripiprazole 15 Mg Tablet, 15 MG PO DAILY, (Reported) Aspirin 81 Mg Tablet.dr, 81 MG PO DAILY, (Reported) Benzonatate 200 Mg Capsule, 200 MG PO Q8H PRN for COUGH, (Reported) Budesonide/Formoterol Fumarate 10.2 Gm Hfa.aer.ad, 2 PUFF IH BID, (Reported) Carbamide Peroxide 15 Ml Drops, 5 DROPS EACH EAR Q12H PRN for WAX BUILD UP, (Reported) Carboxymethylcellulose Sodium 15 Ml Drops, 1 DROP OU Q4H PRN for DRY EYES, (Reported) Cefdinir 300 Mg Capsule, 300 MG PO BID Prescribed by: CANDY SEVILLA on 02/09/19 1340 Clonazepam 0.5 Mg Tablet, 0.5 MG PO BID, (Reported) Divalproex Sodium 125 Mg Cap.sprink, 125 MG PO TID, (Reported) Escitalopram Oxalate 20 Mg Tablet, 40 MG PO DAILY, (Reported) TAKES 2 (20MG) TABLETS Furosemide 20 Mg Tablet, 20 MG PO DAILY, (Reported) Ipratropium/Albuterol Sulfate 3 Ml Ampul.neb, 3 ML NEB Q6H PRN for SHORTNESS OF BREATH, (Reported) Metoprolol Tartrate 25 Mg Tablet, 25 MG PO BID, (Reported) HOLD FOR SYSTOLIC BP < 100 Multivitamin 1 Each Tablet, 1 TAB PO DAILY, (Reported) Nicotine 1 Each Patch.td24, 21 MG TD DAILY, (Reported) Ondansetron HCl 4 Mg Tab, 4 MG PO Q4H PRN for NAUSEA/VOMITING-1ST LINE, (R eported) Pantoprazole Sodium 40 Mg Tablet.dr, 40 MG PO DAILY, (Reported) Patient Home Medication List Home Medication List Reviewed: Yes Review of Systems Review of Systems Constitutional: see HPI, other (unable to obtain) Past Vaozgpz-Smbmot-Wfpjhw Hx Patient Social History Alcohol Use: Denies Use Recreational Drug Use: No (hx of cocaine use) Smoking Status: Current Everyday Smoker Type Used: Cigarettes Recent Foreign Travel: No Contact w/Someone Who Travel: No Recent Infectious Disease Expo: No Recent Hopitalizations: No Physical Abuse: No Sexual Abuse: No Mistreated: No Fear: No Immunizations Up To Date Tetanus Booster (TDap): Unknown Date of Influenza Vaccine: Jan 05, 2019 Seasonal Allergies Seasonal Allergies: No Past Medical History Surgeries: No Respiratory: Yes Pneumonia, COPD Cardiac: Yes (heart failure) Hypertension Neurological: No Genitourinary: No Gastrointestinal: Yes Gastroesophageal Reflux, Hepatitis Musculoskeletal: Yes (lack of coordination, abnormal gait/mobility) Endocrine: No HEENT: No Cancer: Yes Colon Psychosocial: Yes (cocaine dependence) Anxiety, Violent Behavior, Depression Integumentary: No Blood Disorders: Yes (HEP C ) Family Medical History No Pertinent Family Hx Physical Exam Vital Signs Vital Signs - First Documented 03/09/19 03/09/19 12:45 14:55 O2 Flow Rate 70.00 FiO2 50 Capillary Refill : Less Than 3 Seconds Height, Weight, BMI Height: 5'10.00" Weight: 200lbs. 0.0oz. [id number]; 32.9 BMI Method:Stated General Appearance: No Apparent Distress, WD/WN, Obese, Other (lung sounds are diminished, he is not tachypneic.) HEENT: PERRL/EOMI, Normal ENT Inspection Neck: Full Range of Motion, Normal Inspection Respiratory: No Accessory Muscle Use, No Respiratory Distress (no accessory muscle use), Decreased Breath Sounds Cardiovascular: Regular Rate, Rhythm, Normal Peripheral Pulses Gastrointestinal: Normal Bowel Sounds, Non Tender, Soft Neurologic/Psychiatric: Other (lethargic) Skin: Normal Color, Warm/Dry Focused Exam Lactate Level 03/09/19 12:45: Lactic Acid Level 0.94 Lactic Acid Level Laboratory Tests Test 03/09/19 12:45 Lactic Acid Level 0.94 MMOL/L (0.50-2.00) Procedures/Interventions Date of ETT Placement: Dec 27, 2018 Time of ETT Placement: 1830 Progress/Results/Core Measures Results/Orders Lab Results Laboratory Tests Test 03/09/19 12:45 03/09/19 12:52 03/09/19 14:04 Range/Units White Blood Count 8.6 4.3-11.0 10^3/uL Red Blood Count 5.08 4.35-5.85 10^6/uL Hemoglobin 14.1 13.3-17.7 G/DL Hematocrit 45 40-54 % Mean Corpuscular Volume 89 80-99 FL Mean Corpuscular Hemoglobin 28 25-34 PG Mean Corpuscular Hemoglobin Concent 31 L 32-36 G/DL Red Cell Distribution Width 20.2 H 10.0-14.5 % Platelet Count 163 130-400 10^3/uL Mean Platelet Volume 7.4-10.4 FL Neutrophils (%) (Auto) 63 42-75 % Lymphocytes (%) (Auto) 22 12-44 % Monocytes (%) (Auto) 11 0-12 % Eosinophils (%) (Auto) 4 0-10 % Basophils (%) (Auto) 0 0-10 % Neutrophils # (Auto) 5.4 1.8-7.8 X 10^3 Lymphocytes # (Auto) 1.9 1.0-4.0 X 10^3 Monocytes # (Auto) 1.0 0.0-1.0 X 10^3 Eosinophils # (Auto) 0.4 H 0.0-0.3 10^3/uL Basophils # (Auto) 0.0 0.0-0.1 10^3/uL Sodium Level 140 135-145 MMOL/L Potassium Level 5.4 H 3.6-5.0 MMOL/L Chloride Level 93 L 98-107 MMOL/L Carbon Dioxide Level 34 H 21-32 MMOL/L Anion Gap 13 5-14 MMOL/L Blood Urea Nitrogen 12 7-18 MG/DL Creatinine 0.94 0.60-1.30 MG/DL Estimat Glomerular Filtration Rate > 60 BUN/Creatinine Ratio 13 Glucose Level 82 70-105 MG/DL Lactic Acid Level 0.94 0.50-2.00 MMOL/L Calcium Level 8.8 8.5-10.1 MG/DL Corrected Calcium 9.1 8.5-10.1 MG/DL Total Bilirubin 0.6 0.1-1.0 MG/DL Aspartate Amino Transf (AST/SGOT) 28 5-34 U/L Alanine Aminotransferase (ALT/SGPT) 14 0-55 U/L Alkaline Phosphatase 59 40-136 U/L B-Type Natriuretic Peptide 916.9 H <100.0 PG/ML Total Protein 7.3 6.4-8.2 GM/DL Albumin 3.6 3.2-4.5 GM/DL Blood Gas Puncture Site RIGHT RADIAL RIGHT RADIAL Blood Gas Patient Temperature 97.3 97.1 Arterial Blood pH 7.31 *L 7.33 *L 7.37-7.43 Arterial Blood Partial Pressure CO2 85 *H 82 *H 35-45 MMHG Arterial Blood Partial Pressure O2 146 H 100 H 79-93 MMHG Arterial Blood HCO3 42 *H 43 *H 23-27 MMOL/L Arterial Blood Total CO2 44.7 H 45.2 H 21.0-31.0 MMOL/L Arterial Blood Oxygen Saturation 100 98 94-100 % Arterial Blood Base Excess 15.1 H 15.9 H -2.5-2.5 MMOL/L Jeff Test YES-POS YES-POS Blood Gas Ventilator Setting NO NO Blood Gas Inspired Oxygen 70% BIPAP 50% Fio2 My Orders Orders - GEOVANNA SANTIAGO APRN Cbc With Automated Diff (03/09/19 12:47) Comprehensive Metabolic Panel (03/09/19 12:47) Ekg Tracing (03/09/19 12:47) BNP (03/09/19 12:47) Blood Culture (03/09/19 12:47) Lactic Acid Analyzer (03/09/19 12:47) Bipap (Bilevel) Set Up (03/09/19 12:47) Albuterol Pre-Mix Nebs (Rt) (Proventil (03/09/19 13:00) Svn Small Volume Nebulizer (03/09/19 12:47) Arterial Blood Gas (03/09/19 12:52) Chest 1 View, Ap/Pa Only (03/09/19 13:05) Albuterol/Ipra Inhalation Soln (Duoneb I (03/09/19 13:05) Arterial Blood Gas (03/09/19 14:06) Etomidate Injection (Amidate Injection) (03/09/19 14:30) Succinylcholine Injection (Succinylcholi (03/09/19 14:30) Propofol Injection (Diprivan Injection) (03/09/19 14:30) Propofol Injection (Diprivan Injection) (03/09/19 14:28) Propofol Drip (Icu) (Diprivan Drip (Icu) (03/09/19 14:28) Chest 1 View, Ap/Pa Only (03/09/19 14:34) Ng Tube Insert & Assessment (03/09/19 14:34) Sputum Culture (03/09/19 15:01) Rocuronium 5 Ml Syringe (Rocuronium 5 Ml (03/09/19 15:15) Furosemide Injection (Lasix Injection) (03/09/19 15:15) Medications Given in ED Current Medications Medications Dose Ordered Sig/Mi Route Start Time Stop Time Status Last Admin Dose Admin Albuterol/ Ipratropium 3 ml STK-MED ONCE .ROUTE 03/09/19 13:05 03/09/19 13:09 DC 03/09/19 13:12 3 ML Vital Signs/I&O 03/09/19 03/09/19 03/09/19 03/09/19 12:40 12:40 12:45 13:12 Temp 97.3 97.3 Pulse 75 75 71 56 Resp 18 18 18 17 B/P (MAP) 118/80 118/80 (93) Pulse Ox 97 97 99 100 O2 Flow Rate 70.00 50.00 03/09/19 14:55 Pulse 58 Resp 24 Pulse Ox 100 FiO2 50 Blood Pressure Mean: 93 Departure Communication (Admissions) Time/Spoke to Admitting Phy: 14:[address] Casanova, we will admit, IV steroids, propofol drip, nasogastric tube, ICU and consult Dr. Redmond. Time/Spoke to Consulting Phy: 15:[address] Redmond, agrees with plan of care. Withhold antibiotics at this time given the absence of leukocytosis. Initial vent settings are tidal volume 450, PEEP 5, rate of 24, 50% FiO2. Initial ABG shows a PCO2 of 85. He is currently on BiPAP settings 18/550% FiO2 oxygen saturation 97%. He is still arousable to verbal stimuli. We'll continue with this treatment plan for 1 hour, if his PCO2 fails to improve with BiPAP will proceed with intubation in 1 hour. Impression Primary Impression: Acute and chronic respiratory failure Disposition: 09 ADMITTED INPATIENT Condition: Critical Admissions Decision to Admit Reason: Admit from ER (General) Decision to Admit/Date: March 09, 2019 Time/Decision to Admit Time: 13:23 Departure-Patient Inst. Referrals: ART CASANOVA DO (PCP/Family) Primary Care Physician GEOVANNA SANTIAGO APRN March 09, 2019 13:23
--- NOTE | 2019-03-09 13:43 | Diagnostic Imaging Report ---
INDICATION: Shortness of breath. TECHNIQUE: Single view chest 1:29 PM. CORRELATION STUDY: 03/05/2019 FINDINGS: Heart size remains enlarged and vasculature is mildly prominent. Chronic-appearing change about the lung parenchyma. Unchanged blunting of the right costophrenic angle, likely pleural thickening versus potential pleural effusion. Multiple old healed right-sided rib fracture deformities. IMPRESSION: 1. Cardiac enlargement, component of vascular congestion slightly increased from prior study. 2. Likely chronic pleural thickening about the right lung base along with chronic change about the lung parenchyma. Dictated by: Dictated on workstation # [id number]
[2019-03-09 14:11] LABS: ABG BASE EXCESS 15.9 MMOL/L (-2.5-2.5); ABG OXYGEN SATURATION 98 % (94-100); ABG PO2 100 MMHG (79-93); ABG TCO2 45.2 MMOL/L (21.0-31.0)
[2019-03-09 14:13] LABS: ABG PCO2 82 MMHG (35-45); ABG PH 7.33 (7.37-7.43); ALLENS TEST YES-POS
[2019-03-09 14:14] LABS: PATIENT TEMP 97.1; VENTILATOR NO
[2019-03-09] MEDS ORDERED: proPOfol 200 MG/20 ML (DIPRIVAN) VIAL IV ONE (14:28)
[2019-03-09] MEDS ORDERED: PROPOFOL DRIP (ICU) 100 ML IV ONE (14:28)
[2019-03-09] MEDS ORDERED: ETOMIDATE IV SOLN 20 MG/10 ML VIAL IV ONE (14:30)
[2019-03-09] MEDS ORDERED: SUCCINYLCHOLINE INJ 100 MG/5 ML SYR INJ ONE (14:30)
[2019-03-09] MEDS ORDERED: PROPOFOL INJECTION 50 ML IV SCH (14:30)
--- NOTE | 2019-03-09 14:38 | NUR ---
ed staff at patient bedside preparing for intubation patient vital signs are as follows BP 106/62, HR 51, RR 12, 96% on Bipap @ 40%. and Jose Elias Bruce at [facility] 1442 preoxygenate BVM 1443 Etomidate 20mg 1443 Rocuronium 50mg 1444 first attempt successful 1445 Co2 38, size 8 ett 24cm @gum, bilateral breath sounds 1446 Proprofol drip started running at 10.8 mL per hour 1448 HR 64 RR 10 O2 100% 1453 18 serbian OG tube placed
[2019-03-09] MEDS: ROCURONIUM 10 MG/ML 5 ML SYRINGE IV ONE (14:43)
[2019-03-09] MEDS ORDERED: FUROSEMIDE 40 MG/4 ML INJ (LASIX) IVP ONE (15:15)
--- NOTE | 2019-03-09 15:17 | NUR ---
increased diprivan to 40 at this time, also suctioned ett by Jose Elias Bruce 1518 FI02 increased to 50% BP 105/75, O2 94, RR 24 1524 Rocuronium 50 mg given by Jose Elias Bruce
--- OUTSIDE RECORDS SUMMARY | 2019-03-09 15:19 | XMS REPORT | Clinical Summary ---
Author Author [facility] Organization [facility] Address Unknown Phone Unavailable Care Team Providers Care Candy Maker Name Role Phone Traci Lyons RN Unavailable Unavailable Clifton Navarrete MD PCP Source Comments Some departments are not documenting in the electronic medical record. If you d o not see the information that you expected, contact Release of Information in [facility] Health Information Management department at [phone] for further assistan ce in locating additional records.[facility] Allergies No Known Allergies Medications End Date [...] Taken Vital Sign Reading 10/08/2007 11:36 PM SENIOR SEARCH MARKETING ANALYST Blood Pressure 133/71 10/08/2007 11:36 PM SENIOR SEARCH MARKETING ANALYST Pulse 94 10/08/2007 11:36 PM SENIOR SEARCH MARKETING ANALYST Temperature 36.1 C (97 F) - Respiratory Rate - 10/08/2007 11:36 PM SENIOR SEARCH MARKETING ANALYST Oxygen Saturation 93% - Inhaled Oxygen - Concentration - Weight - - Height - - Body Mass Index - Plan of Treatment Health Maintenance Due Date Last Done Comments HEPATITIS C SCREENING 1958 PHYSICAL (COMPREHENSIVE) 1965 EXAM HIV SCREENING 1973 DTAP/TDAP VACCINES (1 - 1976 Tdap) COLORECTAL CANCER 2008 SCREENING SHINGLES RECOMBINANT 2008 VACCINE (1 of 2) INFLUENZA VACCINE 07/21/2019 Results Not on filefrom Last 3 Months
--- OUTSIDE RECORDS SUMMARY | 2019-03-09 15:19 | XMS REPORT | Clinical Summary ---
Author Author [facility] Organization [facility] Address Unknown Phone Unavailable Care Team Providers Care Ground Crewman Name Role Phone PCP Unavailable Allergies Not [...] Taken Blood Pressure 130/70 11/09/2008 4:27 PM BOAT WORKER Pulse 80 11/09/2008 4:27 PM BOAT WORKER Temperature - - Respiratory Rate 16 11/09/2008 4:27 PM BOAT WORKER Oxygen Saturation - - Inhaled Oxygen - - Concentration Weight 86.2 kg (190 lb) 11/09/2008 4:27 PM BOAT WORKER Height 173.9 cm (5' 8.45") 10/12/2008 2:28 PM BOAT WORKER Body Mass Index 28.51 11/09/2008 4:27 PM BOAT WORKER Plan of Treatment Not on file Results Not on filefrom Last 3 Months
--- NOTE | 2019-03-09 15:21 | Diagnostic Imaging Report ---
INDICATION: Intubation. TIME OF EXAM 3:12 PM CORRELATION is made with prior study from earlier the same day. FINDINGS: There appears to be an NG tube passing below the diaphragm. ET tube appears to have the tip above the costa. There is central congestion but no overt failure. No effusion or pneumothorax is seen. IMPRESSION: Satisfactory endotracheal tube and nasogastric tube placements. Dictated by: Dictated on workstation # [id number]
--- NOTE | 2019-03-09 16:00 | NUR ---
LUIS MANUEL RETANA admitted to room CU7-1, with an admitting diagnosis of Respiratory Failure, on 03/09/19 from AM via cart, accompanied by staff.LUIS MANUEL RETANA introduced to surroundings, call light, bed controls, phone, TV, temperature control, lights, meal times, smoking policy, visitor policy, side rail policy, bathrooms and showers. Patient Rights given to patient in the handbook. LUIS MANUEL RETANA verbalizes understanding that [facility] is not responsible for the loss or damage to any personal effects or valuables that are kept in the patients posession during their hospitalization. The following Patient Care Plans were discussed with the pt but unable to comprehend: Discharge Planning. LUIS MANUEL RETANA verbalizes understanding of Interdisciplinary Patient Education. Patient and/or family were informed about the Rapid Response Team and its purpose.
--- NOTE | 2019-03-09 16:07 | Pulmonary Consultation ---
History of Present Illness History of Present Illness Date of Consultation 03/09/19 16:00 Time Seen by Provider: 16:00 Date of Admission History of Present Illness 58Yo with hx of severe COPD and persistent tobacco use presented to ED from [facility] secondary to worsening SOB and found to be hypoxic. He was 60% at [facility]. Pt was placed on BiPAP upon admission however repeat ABG showed persistent respiratory acidosis. Pt was also very lethargic so he was intubated in ED. CT shows bilateral infiltrates and cardiac enlargement. There is no leukocytosis. I am consulted for pulmonary/ICU management. Allergies and Home Medications Allergies Coded Allergies: No Known Drug Allergies (Unverified , 03/09/19) Home Medications Acetaminophen 325 Mg Tablet, 325-650 MG PO EVERY 4-6 HOURS PRN for PAIN-MILD, (Reported) TAKES 1-2 (325MG) TABLETS Aripiprazole 15 Mg Tablet, 15 MG PO DAILY, (Reported) Aspirin 81 Mg Tablet.dr, 81 MG PO DAILY, (Reported) Benzonatate 200 Mg Capsule, 200 MG PO Q8H PRN for COUGH, (Reported) Budesonide/Formoterol Fumarate 10.2 Gm Hfa.aer.ad, 2 PUFF IH BID, (Reported) Carbamide Peroxide 15 Ml Drops, 5 DROPS EACH EAR Q12H PRN for WAX BUILD UP, (Reported) Carboxymethylcellulose Sodium 15 Ml Drops, 1 DROP OU Q4H PRN for DRY EYES, (Reported) Clonazepam 0.5 Mg Tablet, 0.5 MG PO BID, (Reported) Divalproex Sodium 125 Mg Cap.sprink, 125 MG PO TID, (Reported) Escitalopram Oxalate 20 Mg Tablet, 40 MG PO DAILY, (Reported) TAKES 2 (20MG) TABLETS Furosemide 20 Mg Tablet, 20 MG PO DAILY, (Reported) Ipratropium/Albuterol Sulfate 3 Ml Ampul.neb, 3 ML NEB Q6H PRN for SHORTNESS OF BREATH, (Reported) Metoprolol Tartrate 25 Mg Tablet, 25 MG PO BID, (Reported) HOLD FOR SYSTOLIC BP < 100 Multivitamin 1 Each Tablet, 1 TAB PO DAILY, (Reported) Ondansetron HCl 4 Mg Tab, 4 MG PO Q4H PRN for NAUSEA/VOMITING-1ST LINE, (Reported) Pantoprazole Sodium 40 Mg Tablet.dr, 40 MG PO DAILY, (Reported) Past Bcpveup-Gdsyat-Zrsmmj Hx Patient Social History Alcohol Use: Denies Use Recreational Drug Use: No (hx of cocaine use) Smoking Status: Current Everyday Smoker Type Used: Cigarettes Recent Foreign Travel: No Contact w/Someone Who Travel: No Recent Infectious Disease Expo: No Recent Hopitalizations: No Physical Abuse: No Sexual Abuse: No Mistreated: No Fear: No Immunizations Up To Date Tetanus Booster (TDap): Unknown Date of Influenza Vaccine: Jan 05, 2019 Seasonal Allergies Seasonal Allergies: No Past Medical History Surgeries: No Respiratory: Yes Pneumonia, COPD Cardiac: Yes (heart failure) Hypertension Neurological: No Genitourinary: No Gastrointestinal: Yes Gastroesophageal Reflux, Hepatitis Musculoskeletal: Yes (lack of coordination, abnormal gait/mobility) Endocrine: No HEENT: No Cancer: Yes Colon Psychosocial: Yes (cocaine dependence) Anxiety, Violent Behavior, Depression Integumentary: No Blood Disorders: Yes (HEP C ) Family Medical History No Pertinent Family Hx Review of Systems Time Seen by Provider: 06:54 Sepsis Event Evaluation Height, Weight, BMI Height: 5'10.00" Weight: 200lbs. 0.0oz. 90.378409js; 32.9 BMI Method:Stated Exam Exam Vital Signs Date Time Temp Pulse Resp B/P (MAP) Pulse Ox O2 Delivery O2 Flow Rate FiO2 03/09/19 14:55 58 24 100 50 03/09/19 13:12 56 17 100 50.00 03/09/19 12:45 71 18 99 70.00 03/09/19 12:40 97.3 75 18 118/80 (93) 97 03/09/19 12:40 97.3 75 18 118/80 97 Height & Weight Height: 5'10.00" Weight: 200lbs. 0.0oz. 90.808873vq; 32.9 BMI Method:Stated General Appearance: WD/WN, Anxious, Chronically ill, Moderate Distress, Obese, Other (lung sounds are diminished, he is not tachypneic.) HEENT: PERRL/EOMI, Normal ENT Inspection Neck: Full Range of Motion, Normal Inspection Respiratory: No Accessory Muscle Use, No Respiratory Distress, Decreased Breath Sounds Cardiovascular: Regular Rate, Rhythm, Normal Peripheral Pulses Capillary Refill: Less Than 3 Seconds Gastrointestinal: normal bowel sounds, non tender, soft, no organomegaly, no pulsatile mass Extremity: Normal Capillary Refill, Normal Inspection, No Calf Tenderness, No Pedal Edema Neurologic/Psychiatric: Alert, Disoriented, Other (lethargic) Skin: Normal Color, Warm/Dry Lymphatic: No Adenopathy Results Lab Laboratory Tests 03/09/19 12:45 Assessment/Plan Assessment/Plan Acute on chronic respiratory failure -Continue ventilator therapy -Repeat ABG pending pulmonary edema -Check Echo -BNP is 917 -Continue Lasix COPDAE -Dumirb KEYONA EVANS DO March 09, 2019 16:07
[2019-03-09] MEDS ORDERED: CATHETER FLUSH 10 ML SYR IV PRN (16:15)
[2019-03-09] MEDS: LACTATED RINGERS 1,000 ML IV SCH (18:31)
[2019-03-09] MEDS: ENOXAPARIN 40 MG/0.4 ML (LOVENOX) SYR SC SCH (18:31)
[2019-03-09] MEDS: methylPREDNISolone 125 MG (Solu-MEDROL) VIAL IVP SCH (18:31)
[2019-03-09] MEDS: RT-ALBUTEROL/IPRATROPIUM 3 ML (DUONEB) VIAL INH SCH ×2 (18:45→22:29)
[2019-03-09] MEDS ORDERED: ROCURONIUM 10 MG/ML 5 ML SYRINGE IV ONE (19:09)
[2019-03-10] VITALS (36 sets, daily range): BP systolic 80–131; BP diastolic 38–74
[2019-03-10] MEDS: methylPREDNISolone 125 MG (Solu-MEDROL) VIAL IVP SCH ×4 (01:10→16:02)
[2019-03-10] MEDS: LACTATED RINGERS 1,000 ML IV SCH ×4 (01:30→16:59)
--- NOTE | 2019-03-10 02:33 | NUR ---
E-ICU notified of pt condition, decreased bp, decreased urine output, persistent cough and interventions taken by this RN.
[2019-03-10] MEDS: RT-ALBUTEROL/IPRATROPIUM 3 ML (DUONEB) VIAL INH SCH ×6 (02:39→22:32)
[2019-03-10] MEDS ORDERED: fentaNYL INJECTION 100 MCG/2 ML AMP IV PRN (03:30)
[2019-03-10 03:32] LABS: BASOPHILS % (AUTO) 0 % (0-10); EOSINOPHILS % (AUTO) 0 % (0-10); HEMATOCRIT 47 % (40-54); HEMOGLOBIN 14.6 G/DL (13.3-17.7); LYMPHOCYTES # (AUTO) 0.7 X 10^3 (1.0-4.0); LYMPHOCYTES % (AUTO) 10 % (12-44); MEAN CORPUSCULAR HEMOGLOBIN 27 PG (25-34); MEAN CORPUSCULAR HGB CONC 31 G/DL (32-36); MEAN CORPUSCULAR VOLUME 88 FL (80-99); MEAN PLATELET VOLUME 11.1 FL (7.4-10.4); MONOCYTES # (AUTO) 0.2 X 10^3 (0.0-1.0); MONOCYTES % (AUTO) 3 % (0-12); NEUTROPHILS # (AUTO) 5.9 X 10^3 (1.8-7.8); NEUTROPHILS % (AUTO) 88 % (42-75); PLATELET COUNT 139 10^3/uL (130-400); RED CELL DISTRIBUTION WIDTH 18.7 % (10.0-14.5); WHITE BLOOD COUNT 6.8 10^3/uL (4.3-11.0)
[2019-03-10 03:52] LABS: ABG BASE EXCESS 10.1 MMOL/L (-2.5-2.5); ABG OXYGEN SATURATION 94 % (94-100); ABG PCO2 50 MMHG (35-45); ABG PH 7.45 (7.37-7.43); ABG PO2 70 MMHG (79-93); ABG TCO2 36.5 MMOL/L (21.0-31.0)
[2019-03-10 03:53] LABS: ALLENS TEST YES-POS; INSPIRED O2 40%; PATIENT TEMP 96.2; VENTILATOR YES
[2019-03-10 03:58] LABS: BUN/CREATININE RATIO 13; CALCIUM 9.1 MG/DL (8.5-10.1); CARBON DIOXIDE 30 MMOL/L (21-32); CHLORIDE 93 MMOL/L (98-107); CREATININE SERUM 1.06 MG/DL (0.60-1.30); GFR ESTIMATED > 60; GLUCOSE 146 MG/DL (70-105); MAGNESIUM 1.8 MG/DL (1.8-2.4); PHOSPHORUS 3.4 MG/DL (2.3-4.7); POTASSIUM 4.1 MMOL/L (3.6-5.0); SODIUM 143 MMOL/L (135-145)
[2019-03-10 04:49] LABS: BILIRUBIN,URINE NEGATIVE (NEGATIVE); CLARITY,URINE CLEAR; COLOR,URINE YELLOW; GLUCOSE, URINE (UA) NEGATIVE (NEGATIVE); KETONES,URINE NEGATIVE (NEGATIVE); LEUKOCYTE ESTERASE ,URINE 1+ (NEGATIVE); NITRITE,URINE NEGATIVE (NEGATIVE); PH,URINE 8 (5-9); PROTEIN,URINE NEGATIVE (NEGATIVE); UROBILINOGEN,URINE NORMAL (NORMAL)
[2019-03-10 04:59] LABS: BACTERIA,URINE NEGATIVE /HPF; SQUAMOUS EPITHELIAL CELL,UR 0-2 /HPF; WBC,URINE RARE /HPF
--- NOTE | 2019-03-10 04:59 | Pulmonary Progress Note ---
Subjective Time Seen by a Provider: 05:10 Subjective/Events-last exam Pt is awake on vent. Sepsis Event Evaluation Height, Weight, BMI Height: 5'10.00" Weight: 200lbs. 0.0oz. 90.451263an; 28.7 BMI Method:Stated Focused Exam Lactate Level 03/09/19 12:45: Lactic Acid Level 0.94 03/10/19 03:15: Lactic Acid Level 6.13*H Lactic Acid Level Laboratory Tests Test 03/10/19 03:15 Lactic Acid Level 6.13 MMOL/L (0.50-2.00) *H Exam Exam Vital Signs Date Time Temp Pulse Resp B/P (MAP) Pulse Ox O2 Delivery O2 Flow Rate FiO2 03/10/19 04:00 63 23 80/38 (52) 98 Mechanical Ventilator 40.00 03/10/19 03:00 61 11 92/42 (59) 98 Mechanical Ventilator 40.00 03/10/19 02:39 65 24 40 03/10/19 02:00 61 24 86/48 (61) 95 Mechanical Ventilator 40.00 03/10/19 01:23 96.2 03/10/19 01:11 Mechanical Ventilator 03/10/19 01:00 60 24 99/53 (68) 95 Mechanical Ventilator 40.00 03/10/19 01:00 61 03/10/19 00:36 59 24 96 40 03/10/19 00:00 62 12 105/56 (72) 95 Mechanical Ventilator 40.00 03/10/19 00:00 Mechanical Ventilator 40.00 03/09/19 23:00 61 19 102/54 (70) 95 Mechanical Ventilator 40.00 03/09/19 22:33 Mechanical Ventilator 40.00 03/09/19 22:29 57 24 96 40 03/09/19 22:00 59 19 104/57 (73) 93 Mechanical Ventilator 35.00 03/09/19 21:00 59 24 115/65 (82) 94 Mechanical Ventilator 35.00 03/09/19 20:25 35 03/09/19 20:15 Mechanical Ventilator 35.00 03/09/19 20:05 96.2 Mechanical Ventilator 30.00 03/09/19 20:04 Mechanical Ventilator 30.00 03/09/19 20:00 55 19 113/60 (77) 90 Mechanical Ventilator 30.00 03/09/19 20:00 Mechanical Ventilator 30.00 03/09/19 19:00 50 03/09/19 19:00 49 24 106/61 (76) 98 Mechanical Ventilator 30.00 03/09/19 18:47 51 24 95 30 03/09/19 18:00 52 19 90/59 (69) 94 Mechanical Ventilator 50.00 03/09/19 17:42 Mechanical Ventilator 50 03/09/19 17:30 53 24 87/58 (68) 94 Mechanical Ventilator 50.00 03/09/19 17:15 53 19 85/55 (65) 94 Mechanical Ventilator 50.00 03/09/19 17:00 52 23 101/66 (78) 98 Mechanical Ventilator 50.00 03/09/19 16:45 56 24 91/59 (70) 91 Mechanical Ventilator 50.00 03/09/19 16:30 56 6 93 Mechanical Ventilator 50.00 03/09/19 16:15 61 16 145/82 (103) 95 Mechanical Ventilator 50.00 03/09/19 16:10 56 24 96 30 03/09/19 16:00 57 24 90/58 (69) 96 Mechanical Ventilator 50.00 03/09/19 14:55 58 24 100 50 03/09/19 13:12 56 17 100 50.00 03/09/19 12:45 71 18 99 70.00 03/09/19 12:40 97.3 75 18 118/80 (93) 97 03/09/19 12:40 97.3 75 18 118/80 97 l I & O 03/10/19 07:00 Intake Total 1100 ml Output Total 1900 ml Balance -800 ml Height & Weight Height: 5'10.00" Weight: 200lbs. 0.0oz. 90.547337dq; 28.7 BMI Method:Stated General Appearance: No Apparent Distress, WD/WN, Obese, Other (lung sounds are diminished, he is not tachypneic.) HEENT: PERRL/EOMI, Normal ENT Inspection Neck: Full Range of Motion, Normal Inspection Respiratory: No Accessory Muscle Use, No Respiratory Distress (no accessory mus stacey use), Decreased Breath Sounds Cardiovascular: Regular Rate, Rhythm, Normal Peripheral Pulses Capillary Refill: Less Than 3 Seconds Neurologic/Psychiatric: Other (lethargic) Skin: Normal Color, Warm/Dry Results Lab Laboratory Tests 5/20/19 12:45 03/10/19 03:15 Assessment/Plan Assessment/Plan Acute on chronic respiratory failure with copious amounts of sputum -Will plan for bronchoscopy tomorrow AM -Check CT of chest abd/pelvis -Continue ventilator therapy -Repeat ABG pending Metabolic lactic acidosis --Check CT of chest abd/pelvis -IVF- give 30cc/kg of IVF -repeat LA is 9 -Start Vanco, Zosyn, Levaquin - for now or change to Vanco, Merrem secondary to previous cultures Hypotension - mild -IVF -give a liter bolus -Pt needs central line. pulmonary edema -Check Echo -BNP is 917 -Continue Lasix COPDAE -Duoneb -Solumedrol PER RN pt has no family or DOPA. Will consult SW to help find next to kin. Pt's prognosis is guarded to poor at this time. He has complex PMH, medical noncompliance and multiple hospitalizations. He was just recently in hospital for extended stay and also required ventilator at that time. I have also discussed pt with medical staff, EICU doctor, and Dr. Lacey. Total time spent with patient not including procedure is 60min. Update: SW found sister who consented to bronch/EBUS for tomorrow. Critical Care: Critically Ill Patient Time spent with patient (mins): 60 KEYONA EVANS DO March 10, 2019 04:59
[2019-03-10] MEDS ORDERED: LORazepam INJ 2 MG/ML (ATIVAN) VIAL IVP PRN (05:00)
[2019-03-10] MEDS: morphine INJ 4 MG/ML 1 ML (VIAL/SYRINGE) IVP PRN ×2 (05:20→22:40)
[2019-03-10] MEDS: POTASSIUM CL 10MEQ/50ML IVPB 50 ML IV SCH (05:21)
[2019-03-10] MEDS: MAGNESIUM 1 GM/100 ML IVPB 100 ML IV SCH (05:21)
[2019-03-10] MEDS: KCL 20 MEQ TAB (K-DUR) PO SCH (05:21)
[2019-03-10 05:27] LABS: ALANINE AMINOTRANSFERASE 7 U/L (0-55); ALBUMIN 3.3 GM/DL (3.2-4.5); ALKALINE PHOSPHATASE 57 U/L (40-136); TOTAL PROTEIN 6.3 GM/DL (6.4-8.2)
[2019-03-10] MEDS ORDERED: methylPREDNISolone 40 MG/ML (Solu-MEDROL) VIAL ONE (05:39)
[2019-03-10] MEDS ORDERED: LACTATED RINGERS 500 ML IV SCH (06:15)
[2019-03-10] MEDS ORDERED: LACTATED RINGERS 1,000 ML IV ONE ×2 (06:30→06:45)
[2019-03-10] MEDS ORDERED: PHARMACY TO DOSE IV SCH (06:45)
[2019-03-10] MEDS ORDERED: PIPERACILLIN/TAZO 4.5 GM/NS 100 ML IV NR ×2 (07:00)
--- NOTE | 2019-03-10 07:00 | NUR ---
0618--Lactic Acid repeat lab elevated, results called to Dr Redmond, orders received 0625--This RN attempted to call number listed for sister, Talita, no answer, unable to leave voice mail [phone]--[facility] contacted r/t ensuring number listed for sister is correct. Was informed by RN at the facility that pt has no one in his chart and he speaks for himself. They had the same number for sister but do not contact her [phone]--Dr Redmond notified and updated on pt condition, pt with continued hypotension despite fluid boluses and no sedation 0700--Dr Redmond at bedside for central line placement, Solvent Plant Operator at bedside to assist
--- NOTE | 2019-03-10 07:08 | NUR ---
PHARMACY TO DOSE VANCOMYCIN: BASED ON ADJ BW 83 KG SCr 1.06, EST CrCl 87 LOADING DOSE: 2,500 MG MAIN. DOSE: 1,500 MG IV Q 12 HRS VANCOMYCIN TROUGH DUE 03/11/19 @ 18:00 IF TROUGH > 20 HOLD 03/11/19 19:00 DOSE
--- NOTE | 2019-03-10 07:25 | History & Physicial ---
History of Present Illness History of Present Illness Reason for visit/HPI Patient resident of [facility] care. Patient became dyspneic and hypoxic. Pulse ox 60. Patient lethargic and poorly responsive. Patient by ambulance brought out to emergency room. Patient intubated and admitted to ICU. Patient has history of noncompliance Date of Admission March 09, 2019 at 14:57 Time Seen by a Provider: 07:21 I consulted on this patient on 03/10/19 07:21 Attending Physician Abelino Casanova DO Admitting Physician Abelino Casanova DO Consult Allergies and Home Medications Allergies Coded Allergies: No Known Drug Allergies (Unverified , 03/09/19) Home Medications Acetaminophen 325 Mg Tablet, 650 MG PO Q6H PRN for PAIN-MILD, (Reported) TAKES 2 (325MG) TABLETS Acetaminophen 325 Mg Tablet, 650 MG PO Q4H PRN for FEVER, (Reported) TAKES 2 (325MG) TABLETS Aripiprazole 15 Mg Tablet, 15 MG PO DAILY, (Reported) Aspirin 81 Mg Tablet.dr, 81 MG PO DAILY, (Reported) Benzonatate 200 Mg Capsule, 200 MG PO Q8H PRN for COUGH, (Reported) Budesonide/Formoterol Fumarate 10.2 Gm Hfa.aer.ad, 2 PUFF IH BID, (Reported) Carbamide Peroxide 15 Ml Drops, 5 DROPS EACH EAR Q12H PRN for WAX BUILD UP, (Reported) Carboxymethylcellulose Sodium 15 Ml Drops, 1 DROP OU Q4H PRN for DRY EYES, (Reported) Cefdinir 300 Mg Capsule, 300 MG PO BID Prescribed by: CANDY SEVILLA on 02/09/19 1340 Clonazepam 0.5 Mg Tablet, 0.5 MG PO BID, (Reported) Divalproex Sodium 125 Mg Cap.sprink, 125 MG PO TID, (Reported) Escitalopram Oxalate 20 Mg Tablet, 40 MG PO DAILY, (Reported) TAKES 2 (20MG) TABLETS Furosemide 20 Mg Tablet, 20 MG PO DAILY, (Reported) Ipratropium/Albuterol Sulfate 3 Ml Ampul.neb, 3 ML NEB Q6H PRN for SHORTNESS OF BREATH, (Reported) Metoprolol Tartrate 25 Mg Tablet, 25 MG PO BID, (Reported) HOLD FOR SYSTOLIC BP < 100 Multivitamin 1 Each Tablet, 1 TAB PO DAILY, (Reported) Nicotine 1 Each Patch.td24, 21 MG TD DAILY, (Reported) Ondansetron HCl 4 Mg Tab, 4 MG PO Q4H PRN for NAUSEA/VOMITING-1ST LINE, (Reported) Pantoprazole Sodium 40 Mg Tablet.dr, 40 MG PO DAILY, (Reported) Patient Home Medication List Home Medication List Reviewed: No Past Oxeajnb-Jukonx-Weonmq Hx Patient Social History Employed/Student: retired Alcohol Use: Denies Use Recreational Drug Use: No (hx of cocaine use) Smoking Status: Current Everyday Smoker Type Used: Cigarettes Physical Abuse Screen: No Sexual Abuse: No Recent Foreign Travel: No Contact w/other who traveled: No Recent Hopitalizations: No Recent Infectious Disease Expo: No Immunizations Up To Date Tetanus Booster (TDap): Unknown Date of Pneumonia Vaccine: March 04, 2018 Date of Influenza Vaccine: Jan 05, 2019 Seasonal Allergies Seasonal Allergies: No Surgeries No Respiratory Yes COPD Cardiovascular Yes (heart failure) Hypertension Neurological No Genitourinary No Gastrointestinal Yes Gastroesophageal Reflux, Hepatitis Musculoskeletal Yes (lack of coordination, abnormal gait/mobility) Endocrine History of Endocrine Disorders: No HEENT History of HEENT Disorders: No Cancer Yes Colon Psychosocial History of Psychiatric Problem: Yes (cocaine dependence) Behavioral Health Disorders: Anxiety, Violent Behavior, Depression Integumentary History of Skin or Integumenta: No Blood Transfusions History of Blood Disorders: Yes (HEP C ) Family Medical History Significant Family History: No Pertinent Family Hx Review of Systems Constitutional: malaise, weakness, other (Poorly responsive.) EENTM: no symptoms reported Respiratory: dyspnea on exertion, short of breath, other (Dyspnea at rest) Cardiovascular: no symptoms reported Gastrointestinal: no symptoms reported Genitourinary: no symptoms reported Physical Exam Vital Signs Vital Signs - First Documented 03/09/19 03/09/19 03/09/19 12:45 14:55 16:00 O2 Delivery Mechanical Ventilator O2 Flow Rate 70.00 FiO2 50 Capillary Refill : Less Than 3 Seconds Height, Weight, BMI Height: 5'10.00" Weight: 218lbs. 2.0oz. 98.722366xm; 28.7 BMI Method:Stated General Appearance: Other (Patient off ventilator) Respiratory: Decreased Breath Sounds Cardiovascular: Regular Rate, Rhythm Assessment/Plan Assessment and Plan Acute and chronic respiratory failure. Metabolic lactic acidosis. Hypotension. Coronary edema. COPD with acute exacerbation Admission Diagnosis Admission Status: Inpatient Order (span 2 midnights) Reason for Inpatient Admission: Patient on ventilator. COPD with acute exacerbation. Elevated lactic acid. Pulmonary edema Clinical Quality Measures DVT/VTE Risk/Contraindication: Risk Factor Score Per Nursin RFS Level Per Nursing on Admit: 4+=Very High ABELINO CASANOVA DO March 10, 2019 07:25
[2019-03-10] MEDS ORDERED: VANCOMYCIN 2,500 MG/NS 500 ML IVPB IV NR ×2 (07:30)
--- NOTE | 2019-03-10 07:56 | Pulmonary Procedures ---
Pulmonary Procedures Date of Procedure Date of Service: March 10, 2019 Lumen: triple (US guided ) Central Line Procedure: betadine prep, sterile drapes applied, sterile dressing applied Position: internal jugular (R) Anesthesia: Lidocaine Volume Anesthetic (ccs): 5 Complications: none Post Position: sutured, good blood return, position confirmed w/ CXR KEYONA EVANS DO March 10, 2019 07:55
[2019-03-10] MEDS: ROCURONIUM 10 MG/ML 5 ML SYRINGE IV ONE (08:00)
--- NOTE | 2019-03-10 08:03 | Diagnostic Imaging Report ---
INDICATION: Dyspnea. TECHNIQUE: Single view chest 4:17 AM. CORRELATION STUDY: 03/09/2019 FINDINGS: Endotracheal tube is present. Tip appears be at the lower trachea, projecting toward may be just within the right mainstem bronchus. Heart size and mediastinum are relatively stable. Vasculature appears improved. Likely component of a small right pleural effusion. No definitive consolidating infiltrate. IMPRESSION: 1. Endotracheal tube tip may be approaching the level of the right mainstem bronchus, could be retracted approximately 2 cm. 2. There does appear to be overall improvement in aeration to the lung brennan. Called to [facility] at 8:02 a.m. by cvb. Dictated by: Dictated on workstation # [id number]
[2019-03-10] MEDS: PANTOPRAZOLE 40 MG (PROTONIX) VIAL IV SCH (08:10)
--- NOTE | 2019-03-10 08:23 | Diagnostic Imaging Report ---
INDICATION: Line placement. TECHNIQUE: Single view chest 8:08 AM. CORRELATION STUDY: Earlier same day FINDINGS: Endotracheal tube has been retracted slightly since prior study. Tip projecting over the trachea below the clavicles and above the costa. Gastric tube passes the left hemidiaphragm. A right IJ central has been placed since prior study, tip projected over the right paramediastinal region. Heart size, mediastinum and vasculature appearing unchanged. Some atelectasis suggested about the right lung base with small pleural effusions. No appreciable pneumothorax. IMPRESSION: 1. Placement of right IJ central line. No pneumothorax. 2. Interval retraction of the endotracheal tube now projecting by the costa and below the clavicles. Dictated by: Dictated on workstation # [id number]
[2019-03-10] MEDS ORDERED: HOLD METFORMIN - RECEIVED CONTRAST 20 ML VIAL IV SCH (08:45)
[2019-03-10] MEDS ORDERED: IOHEXOL 350 MG/ML 150 ML (OMNIPAQUE 350) VIAL IV ONE (08:45)
[2019-03-10] MEDS ORDERED: NS 250 ML (IVPB) BAG IV ONE (08:45)
--- NOTE | 2019-03-10 08:50 | NUR ---
Pt transported to CT at this time without incident. VSS during transport. Hannah RT and Sam RT accompanied this RN and patient to CT.
[2019-03-10] MEDS ORDERED: LEVOFLOXACIN 750 MG/150 ML IV 150 ML IV SCH (09:00)
[2019-03-10] MEDS: DEXMEDETOMIDINE INJECTION 200 MCG in NS (IVPB) 50 ML IV SCH ×4 (09:23→20:00)
--- NOTE | 2019-03-10 09:35 | NUR ---
DISCUSSED WITH DR EVANS, CHANGED TO MEROPENEM BASED ON PREVIOUS CULTURES (D/C ZOSYN AND LEVOFLOXACIN).
--- NOTE | 2019-03-10 09:46 | Diagnostic Imaging Report ---
INDICATION: Respiratory failure, abdominal pain. TECHNIQUE: The CTA chest was obtained with IV contrast bolus utilizing axial slices and MIP reconstructions. The CT abdomen and pelvis was obtained with IV contrast. COMPARISON: The CTA chest is compared with 12/27/2018. FINDINGS: CTA CHEST: The patient is intubated with the ET tube tip overlying the mid to lower trachea. An NG tube is seen with the tip in the mid stomach. There is no evidence of aortic dissection or aneurysm. There are moderate atherosclerotic changes of the aorta. The pulmonary parenchymal vessels are well opacified with no CT evidence of pulmonary emboli. There is a small right pleural effusion which has increased in size compared to the previous study. There is no significant left pleural fluid or pericardial fluid. The lung parenchymal windows demonstrate some dependent atelectatic changes on both sides with some peribronchial thickening. There is a prominent node in the right hilum measuring 2.4 x 1.7 cm, unchanged compared to the prior study. There is no significant left hilar adenopathy. There is a borderline sized precarinal node measuring about 11 mm. There are a few other borderline sized nodes in the mediastinum. There are old bilateral rib fractures. CT ABDOMEN/PELVIS: The liver shows no focal lesion. There are numerous gallstones filling the gallbladder without gallbladder distention. The spleen, adrenals, and pancreas are normal. The kidneys bilaterally appear unremarkable except for a few small cysts. There are nonocclusive stones in the right kidney. There is no retroperitoneal mass or adenopathy. There is no ascites. There is a Aguilar catheter in the bladder. There is no pelvic mass or free fluid. IMPRESSION: CTA CHEST: There is no evidence of pulmonary emboli, aortic dissection, or aneurysm. There is a small right pleural effusion which has increased in size compared to the previous study. There is bibasilar atelectasis with some peribronchial thickening. There are mildly prominent nodes in the right hilum and mediastinum which appear stable compared to the previous study. There appears to be improvement in the right basilar infiltrates compared to the previous study. CT ABDOMEN/PELVIS: There is no acute abnormality in the abdomen or pelvis. There are a few scattered small cysts in both kidneys. There are numerous gallstones in the gallbladder. There are nonocclusive stones in the right kidney. Dictated by: Dictated on workstation # [id number]
[2019-03-10] MEDS: MEROPENEM 500 MG/SWFI 10 ML IV PUSH IV SCH ×6 (10:00→22:36)
--- NOTE | 2019-03-10 11:19 | NUR ---
UPDATED MED REC WITH MAR FROM [facility]
[2019-03-10] MEDS ORDERED: PIPERACILLIN/TAZOBACTAM (BULK) 4.5 GM in NS (IVPB) 100 ML IV SCH (13:00)
[2019-03-10] MEDS ORDERED: ROCURONIUM 10 MG/ML 5 ML SYRINGE IV ONE (13:01)
[2019-03-10] MEDS: ENOXAPARIN 40 MG/0.4 ML (LOVENOX) SYR SC SCH (16:02)
--- NOTE | 2019-03-10 16:21 | NUR ---
Contacted Talita Dixon, the patients sister et next of kin was contacted to obtain consent for a Bronchoscopy with EBUS. Her contact phone number is . Her mailbox is full but I did text her et she called me back. She gave consent for the procedure et a second nursed Josh RN witnessed this with me. Consent placed on the chart. Talita indicated that she has Medical POA et that we should have that paperwork. I let her know that I could not locate that paperwork et asked her if she could fax it. She is not able to fax but thought that [facility] had it. I contacted [facility] et nurse Cherrie reported that Talita is listed as the emergency contact but does not have DPOA paper work in their files. Encouraged [facility] that obtaining this paperwork would be of great value if able to et they agreed. No further interventions noted at this time.
[2019-03-10] MEDS: VANCOMYCIN 1500 MG/NS 500 ML IVPB IV SCH ×2 (19:48)
[2019-03-10] MEDS: DEXMEDETOMIDINE INJECTION 1,000 MCG in NS (IVPB) 250 ML IV SCH (22:35)
[2019-03-11] VITALS (31 sets, daily range): BP systolic 129–170; BP diastolic 63–92
[2019-03-11] MEDS: LACTATED RINGERS 1,000 ML IV SCH ×9 (00:05→23:06)
[2019-03-11] MEDS: methylPREDNISolone 125 MG (Solu-MEDROL) VIAL IVP SCH ×5 (00:07→23:06)
[2019-03-11] MEDS: RT-ALBUTEROL/IPRATROPIUM 3 ML (DUONEB) VIAL INH SCH ×6 (02:20→23:01)
[2019-03-11] MEDS: MEROPENEM 500 MG/SWFI 10 ML IV PUSH IV SCH ×8 (04:00→22:59)
[2019-03-11 04:14] LABS: BASOPHILS % (AUTO) 0 % (0-10); EOSINOPHILS % (AUTO) 0 % (0-10); HEMATOCRIT 44 % (40-54); HEMOGLOBIN 14.4 G/DL (13.3-17.7); LYMPHOCYTES # (AUTO) 0.5 X 10^3 (1.0-4.0); LYMPHOCYTES % (AUTO) 3 % (12-44); MEAN CORPUSCULAR HEMOGLOBIN 27 PG (25-34); MEAN CORPUSCULAR HGB CONC 32 G/DL (32-36); MEAN CORPUSCULAR VOLUME 84 FL (80-99); MEAN PLATELET VOLUME 10.6 FL (7.4-10.4); MONOCYTES # (AUTO) 0.5 X 10^3 (0.0-1.0); MONOCYTES % (AUTO) 3 % (0-12); NEUTROPHILS # (AUTO) 16.2 X 10^3 (1.8-7.8); NEUTROPHILS % (AUTO) 94 % (42-75); PLATELET COUNT 139 10^3/uL (130-400); RED CELL DISTRIBUTION WIDTH 17.9 % (10.0-14.5); WHITE BLOOD COUNT 17.2 10^3/uL (4.3-11.0)
[2019-03-11 04:29] LABS: ABG BASE EXCESS 10.2 MMOL/L (-2.5-2.5); ABG OXYGEN SATURATION 96 % (94-100); ABG PCO2 45 MMHG (35-45); ABG PH 7.49 (7.37-7.43); ABG PO2 74 MMHG (79-93); ABG TCO2 35.8 MMOL/L (21.0-31.0)
[2019-03-11 04:30] LABS: ALLENS TEST YES-POS; INSPIRED O2 35%; PATIENT TEMP 97.6; VENTILATOR YES
[2019-03-11 04:41] LABS: BAND NEUTROPHILS 5 %; LYMPHOCYTES % (MANUAL) 4 %; MONOCYTES % (MANUAL) 6 %; NEUTROPHILS % (MANUAL) 85 %; RBC MORPH NORMAL
[2019-03-11 04:43] LABS: BUN/CREATININE RATIO 20; CALCIUM 8.8 MG/DL (8.5-10.1); CARBON DIOXIDE 29 MMOL/L (21-32); CHLORIDE 94 MMOL/L (98-107); CREATININE SERUM 0.93 MG/DL (0.60-1.30); GFR ESTIMATED > 60; GLUCOSE 173 MG/DL (70-105); MAGNESIUM 1.5 MG/DL (1.8-2.4); PHOSPHORUS 2.9 MG/DL (2.3-4.7); POTASSIUM 4.5 MMOL/L (3.6-5.0); SODIUM 137 MMOL/L (135-145)
--- NOTE | 2019-03-11 04:50 | Pulmonary Progress Note ---
Subjective Time Seen by a Provider: 05:02 Subjective/Events-last exam BP improved, UO is decreased. Pt is sedated on vent. Sepsis Event Evaluation Height, Weight, BMI Height: 5'10.00" Weight: 218lbs. 2.0oz. 98.889417og; 28.7 BMI Method:Stated Focused Exam Lactate Level 03/10/19 12:56: Lactic Acid Level 8.28*H 03/10/19 19:51: Lactic Acid Level 4.12*H 03/11/19 03:55: Lactic Acid Level 2.63*H Lactic Acid Level Laboratory Tests Test 03/11/19 03:55 Lactic Acid Level 2.63 MMOL/L (0.50-2.00) *H Exam Exam Vital Signs Date Time Temp Pulse Resp B/P (MAP) Pulse Ox O2 Delivery O2 Flow Rate FiO2 03/11/19 04:16 97.6 03/11/19 04:00 Mechanical Ventilator 35.00 03/11/19 02:20 71 24 95 35 03/11/19 01:02 Mechanical Ventilator 03/11/19 01:00 74 03/11/19 00:09 80 27 96 35 03/11/19 00:00 Mechanical Ventilator 35.00 03/10/19 22:32 75 26 94 35 03/10/19 20:45 78 25 96 35 03/10/19 20:00 Mechanical Ventilator 40.00 03/10/19 19:00 75 03/10/19 18:33 71 24 94 40 03/10/19 18:00 98.8 76 30 122/56 (78) 94 Mechanical Ventilator 40.00 03/10/19 17:06 73 24 93 40 03/10/19 17:00 99.0 75 26 123/55 (77) 93 Mechanical Ventilator 40.00 03/10/19 16:00 Mechanical Ventilator 40.00 03/10/19 16:00 98.8 80 26 112/59 (76) 95 Mechanical Ventilator 40.00 03/10/19 15:00 98.8 76 21 116/59 (78) 95 Mechanical Ventilator 40.00 03/10/19 14:23 73 24 95 40 03/10/19 14:00 98.6 73 32 115/52 (73) 96 Mechanical Ventilator 40.00 03/10/19 13:00 74 03/10/19 13:00 98.0 75 58 102/56 (71) 95 Mechanical Ventilator 40.00 03/10/19 12:52 Mechanical Ventilator 40.00 03/10/19 12:00 97.8 80 26 117/48 (71) 96 Mechanical Ventilator 40.00 03/10/19 11:41 70 24 95 40 03/10/19 11:00 97.7 72 23 110/57 (74) 94 Mechanical Ventilator 40.00 03/10/19 10:17 73 24 94 40 03/10/19 10:00 97.6 75 32 103/64 (77) 94 Mechanical Ventilator 40.00 03/10/19 09:00 97.7 92 15 112/68 (83) 95 Mechanical Ventilator 40.00 03/10/19 08:09 100 29 96 40 03/10/19 08:00 Mechanical Ventilator 40.00 03/10/19 08:00 97.2 80 15 99/65 (76) 96 Mechanical Ventilator 40.00 03/10/19 07:00 97.2 81 14 107/63 (78) 94 Mechanical Ventilator 40.00 03/10/19 07:00 89 03/10/19 06:18 74 24 95 40 03/10/19 06:00 93 16 93/43 (60) 95 Mechanical Ventilator 40.00 03/10/19 05:00 79 21 84/47 (59) 97 Mechanical Ventilator 40.00 03/10/19 04:55 97.0 I & O 03/11/19 07:00 Intake Total 4424 ml Output Total 820 ml Balance 3604 ml Height & Weight Height: 5'10.00" Weight: 218lbs. 2.0oz. 98.656525gt; 28.7 BMI Method:Stated General Appearance: WD/WN, Chronically ill, Obese, Other (sedated on vent) HEENT: PERRL/EOMI, Normal ENT Inspection Neck: Full Range of Motion, Normal Inspection Respiratory: No Accessory Muscle Use, No Respiratory Distress (no accessory muscle use), Decreased Breath Sounds Cardiovascular: Regular Rate, Rhythm, Normal Peripheral Pulses Capillary Refill: Less Than 3 Seconds Extremity: Normal Capillary Refill Neurologic/Psychiatric: Other (sedated on vent) Skin: Normal Color, Warm/Dry Results Lab Laboratory Tests 03/09/19 12:45 03/10/19 03:15 03/11/19 03:55 Assessment/Plan Assessment/Plan Acute on chronic respiratory failure with copious amounts of sputum -Will plan for bronchoscopy with EBUS today -Check CT of chest abd/pelvis -Continue ventilator therapy -Recurrent acute respiratory failure requiring ventilator therapy 01/06 and multiple hospitalizations. Metabolic lactic acidosis --Check CT of chest abd/pelvis -IVF- give 30cc/kg of IVF -Will give another liter bolus of LR secondary to decreased UO and persistent elevation LA. -Continue Vanco, Merrem Mediastinal lymphadenopathy -Has been present on previous CT scans and is concerning for neoplastic process -Since pt is already intubated on vent and has a complex PMH will proceed with bronch with EBUS today. SW was consulted yesterday to find family for consent. They did find a sister who did consent to procedure. I am concerned if we attempt this when pt is off vent as out patient he will need ICU admission with respiratory failure. COPDAE -Duoneb -Solumedrol Pts prognosis is guarded at this time. KEYONA EVANS DO March 11, 2019 04:50
--- NOTE | 2019-03-11 05:49 | NUR ---
0520--Dr Redmond, RT, and Phone Representative to bedside for bronch 0520--50 Rocc and 50 Fent administered 0530--50 Fent administered 0540--100 Fent administered 0550--Procedure done at this time
[2019-03-11] MEDS: POTASSIUM CL 10MEQ/50ML IVPB 50 ML IV SCH (05:56)
[2019-03-11] MEDS: KCL 20 MEQ TAB (K-DUR) PO SCH (05:57)
[2019-03-11] MEDS: MAGNESIUM 1 GM/100 ML IVPB 100 ML IV SCH ×3 (05:57→07:35)
[2019-03-11] MEDS: VANCOMYCIN 1500 MG/NS 500 ML IVPB IV SCH ×4 (06:16→19:31)
--- NOTE | 2019-03-11 06:33 | Pulmonary Procedures ---
Pulmonary Procedures Date of Procedure Date of Service: March 11, 2019 Bronch Bronchoscopy with bilateral washing secondary to thick copious secretions, RLL BAL, RLL endobronchial brush, EBUS with transbronchial needle bx under US guidance of station 10R lymph nodes. Preop DX: mediastinal lymphadenopathy, mucous plugging PostOP DX: same and ulcerative areas in RLL Complications: None Pt was already sedated on ventilator with Propofol. Pt was given additional Fentanyl, and Rocuronium for procedure. Bronchoscope was advanced through the ET tube and an anatomical undertaken down to the segmental bronchi bilaterally. Bronchoscopy with bilateral washing secondary to thick copious secretions, RLL BAL, RLL endobronchial brush, EBUS with transbronchial needle bx under US guidance of station 10R lymph nodes.. Pt tolerated procedure well. No complications noted. KEYONA EVANS DO March 11, 2019 06:33
[2019-03-11] MEDS: fentaNYL INJECTION 1,250 MCG in NS (IVPB) 250 ML IV SCH (07:46)
--- NOTE | 2019-03-11 07:46 | Progress Note (SOAP) ---
Subjective Time Seen by a Provider: 07:41 Subjective/Events-last exam Patient doing better than yesterday. White blood cell count elevated 17,200 today. Blood pressure better. Lactic acid decreased to 2.63 from 9.50. BNP Saturday 534 from 916. Preliminary report Gram stain sputum moraxella catarrhalis. Patient at retirement did not want to be a DO NOT RESUSCITATE and wanted things to be done Focused Exam Lactate Level 03/10/19 12:56: Lactic Acid Level 8.28*H 03/10/19 19:51: Lactic Acid Level 4.12*H 03/11/19 03:55: Lactic Acid Level 2.63*H Lactic Acid Level Laboratory Tests Test 03/11/19 03:55 Lactic Acid Level 2.63 MMOL/L (0.50-2.00) *H Objective Exam Vital Signs Date Time Temp Pulse Resp B/P (MAP) Pulse Ox O2 Delivery O2 Flow Rate FiO2 03/11/19 06:41 97.5 03/11/19 06:12 73 24 95 35 03/11/19 06:00 75 23 145/71 (95) 95 Mechanical Ventilator 35.00 03/11/19 05:00 70 24 162/75 (104) 94 Mechanical Ventilator 35.00 03/11/19 04:16 97.6 03/11/19 04:00 Mechanical Ventilator 35.00 03/11/19 04:00 71 23 164/80 (108) 94 Mechanical Ventilator 35.00 03/11/19 03:00 72 19 170/80 (110) 93 Mechanical Ventilator 35.00 03/11/19 02:20 71 24 95 35 03/11/19 02:00 73 10 160/77 (104) 95 Mechanical Ventilator 35.00 03/11/19 01:02 Mechanical Ventilator 03/11/19 01:00 74 03/11/19 01:00 74 31 129/92 (104) 100 Mechanical Ventilator 35.00 03/11/19 00:09 80 27 96 35 03/11/19 00:00 Mechanical Ventilator 35.00 03/11/19 00:00 85 10 144/76 (98) 97 Mechanical Ventilator 35.00 03/10/19 23:00 79 17 127/63 (84) 93 Mechanical Ventilator 35.00 03/10/19 22:32 75 26 94 35 5/21/19 22:00 76 10 130/63 (85) 94 Mechanical Ventilator 35.00 03/10/19 21:00 80 17 131/61 (84) 93 Mechanical Ventilator 35.00 03/10/19 20:54 76 17 126/54 (78) 94 Mechanical Ventilator 35.00 03/10/19 20:45 78 25 96 35 03/10/19 20:00 82 27 129/58 (81) 94 Mechanical Ventilator 40.00 03/10/19 20:00 Mechanical Ventilator 40.00 03/10/19 19:00 75 03/10/19 19:00 75 25 125/62 (83) 94 Mechanical Ventilator 40.00 03/10/19 18:33 71 24 94 40 03/10/19 18:00 98.8 76 30 122/56 (78) 94 Mechanical Ventilator 40.00 03/10/19 17:06 73 24 93 40 03/10/19 17:00 99.0 75 26 123/55 (77) 93 Mechanical Ventilator 40.00 03/10/19 16:00 Mechanical Ventilator 40.00 03/10/19 16:00 98.8 80 26 112/59 (76) 95 Mechanical Ventilator 40.00 03/10/19 15:00 98.8 76 21 116/59 (78) 95 Mechanical Ventilator 40.00 03/10/19 14:23 73 24 95 40 03/10/19 14:00 98.6 73 32 115/52 (73) 96 Mechanical Ventilator 40.00 03/10/19 13:00 74 03/10/19 13:00 98.0 75 58 102/56 (71) 95 Mechanical Ventilator 40.00 03/10/19 12:52 Mechanical Ventilator 40.00 03/10/19 12:00 97.8 80 26 117/48 (71) 96 Mechanical Ventilator 40.00 03/10/19 11:41 70 24 95 40 03/10/19 11:00 97.7 72 23 110/57 (74) 94 Mechanical Ventilator 40.00 03/10/19 10:17 73 24 94 40 03/10/19 10:00 97.6 75 32 103/64 (77) 94 Mechanical Ventilator 40.00 03/10/19 09:00 97.7 92 15 112/68 (83) 95 Mechanical Ventilator 40.00 03/10/19 08:09 100 29 96 40 03/10/19 08:00 Mechanical Ventilator 40.00 03/10/19 08:00 97.2 80 15 99/65 (76) 96 Mechanical Ventilator 40.00 I & O 03/11/19 07:00 Intake Total 4424 ml Output Total 945 ml Balance 3479 ml Capillary Refill : Less Than 3 Seconds General Appearance: Other (Patient on vent unresponsive) Neck: Normal Inspection Respiratory: No Accessory Muscle Use, No Respiratory Distress Cardiovascular: Regular Rate, Rhythm, No Murmur Gastrointestinal: non tender, soft Results Lab Laboratory Tests 03/11/19 03:55 Laboratory Tests 03/10/19 11:24: Glucometer 144H 03/10/19 12:04: Troponin I 0.030H 03/10/19 12:56: Lactic Acid Level 8.28*H 03/10/19 15:50: Glucometer 142H 03/10/19 18:52: Troponin I < 0.028 03/10/19 19:51: Lactic Acid Level 4.12*H 03/10/19 22:26: Glucometer 151H 03/11/19 03:55: Lactic Acid Level 2.63*H, White Blood Count 17.2H, Red Blood Count 5.30, Hemoglobin 14.4, Hematocrit 44, Mean Corpuscular Volume 84, Mean Corpuscular Hemoglobin 27, Mean Corpuscular Hemoglobin Concent 32, Red Cell Distribution Width 17.9H, Platelet Count 139, Mean Platelet Volume 10.6H, Neutrophils (%) (Auto) 94H, Lymphocytes (%) (Auto) 3L, Monocytes (%) (Auto) 3, Eosinophils (%) (Auto) 0, Basophils (%) (Auto) 0, Neutrophils # (Auto) 16.2H, Lymphocytes # (Auto) 0.5L, Monocytes # (Auto) 0.5, Eosinophils # (Auto) 0.0, Basophils # (Auto) 0.0, Neutrophils % (Manual) 85, Lymphocytes % (Manual) 4, Monocytes % (Manual) 6, Band Neutrophils 5, Blood Morphology Comment NORMAL, Sodium Level 137, Potassium Level 4.5, Chloride Level 94L, Carbon Dioxide Level 29, Anion Gap 14, Blood Urea Nitrogen 19H, Creatinine 0.93, Estimat Glomerular Filtration Rate > 60, BUN/Creatinine Ratio 20, Glucose Level 173H, Calcium Level 8.8, Phosphorus Level 2.9, Magnesium Level 1.5L 03/11/19 04:15: Blood Gas Puncture Site RIGHT RADIAL, Blood Gas Patient Temperature 97.6, Arterial Blood pH 7.49H, Arterial Blood Partial Pressure CO2 45, Arterial Blood Partial Pressure O2 74L, Arterial Blood HCO3 34H, Arterial Blood Total CO2 35.8H , Arterial Blood Oxygen Saturation 96, Arterial Blood Base Excess 10.2H, Jeff Test YES-POS, Blood Gas Ventilator Setting YES, Blood Gas Inspired Oxygen 35% 03/11/19 05:30: 03/11/19 06:13: Glucometer 168H Microbiology 03/09/19 Blood Culture - Preliminary, Resulted No growth 03/09/19 Gram Stain - Final, Resulted 03/09/19 Sputum Culture - Preliminary, Resulted Moraxella catarrhalis See Comments Assessment/Plan Assessment/Plan Assess & Plan/Chief Complaint Acute respiratory failure. Acute on chronic respiratory failure. COPD with acute exacerbation. Hypoxia. Tobaccoism. Noncompliance history Clinical Quality Measures Admission Status Admission Dx Acute and chronic respiratory failure. Metabolic lactic acidosis. Hypotension. Coronary edema. COPD with acute exacerbation DVT/VTE Risk/Contraindication: Risk Factor Score Per Nursin RFS Level Per Nursing on Admit: 4+=Very High ART CASANOVA DO March 11, 2019 07:46
[2019-03-11] MEDS: PANTOPRAZOLE 40 MG (PROTONIX) VIAL IV SCH (07:49)
[2019-03-11] MEDS ORDERED: LIDOCAINE PF 2% 5 ML (XYLOCAINE) VIAL INJ ONE (08:29)
[2019-03-11] MEDS ORDERED: LIDOCAINE PF 1% 2 ML AMP IJ ONE (08:29)
[2019-03-11] MEDS ORDERED: ROCURONIUM 10 MG/ML 5 ML SYRINGE IV ONE (08:30)
[2019-03-11] MEDS ORDERED: fentaNYL INJECTION 100 MCG/2 ML AMP INJ ONE (08:30)
--- NOTE | 2019-03-11 08:41 | Diagnostic Imaging Report ---
Indication: Dyspnea. Comparison made with prior examination from 03/10/2019. Findings: There is cardiomegaly. There is mild venous congestion. ET, NG and central venous catheter are in satisfactory position. There is no pleural effusion, pneumothorax or pneumonia. The mediastinum is unremarkable. Impression: Cardiomegaly and some central pulmonary venous congestion, otherwise unremarkable. Dictated by: Dictated on workstation # [id number]
[2019-03-11 14:46] LABS: ABG BASE EXCESS 9.3 MMOL/L (-2.5-2.5); ABG OXYGEN SATURATION 96 % (94-100); ABG PCO2 53 MMHG (35-45); ABG PH 7.43 (7.37-7.43); ABG PO2 78 MMHG (79-93); ABG TCO2 35.7 MMOL/L (21.0-31.0); ALLENS TEST YES-POS; INSPIRED O2 35%; PATIENT TEMP 98; VENTILATOR YES
[2019-03-11] MEDS: DEXMEDETOMIDINE INJECTION 1,000 MCG in NS (IVPB) 250 ML IV SCH (16:26)
[2019-03-11] MEDS ORDERED: TROUGH ORDER-PHARMACY XX NR (18:00)
[2019-03-12] VITALS (30 sets, daily range): BP systolic 92–155; BP diastolic 45–101
[2019-03-12] MEDS: RT-ALBUTEROL/IPRATROPIUM 3 ML (DUONEB) VIAL INH SCH ×6 (02:23→21:52)
[2019-03-12 03:32] LABS: ABG BASE EXCESS 9.3 MMOL/L (-2.5-2.5); ABG OXYGEN SATURATION 94 % (94-100); ABG PCO2 50 MMHG (35-45); ABG PH 7.45 (7.37-7.43); ABG PO2 72 MMHG (79-93); ABG TCO2 35.1 MMOL/L (21.0-31.0); ALLENS TEST YES-POS; INSPIRED O2 35%; PATIENT TEMP 99.5; VENTILATOR YES
[2019-03-12 03:32] LABS: BASOPHILS % (AUTO) 0 % (0-10); EOSINOPHILS % (AUTO) 0 % (0-10); HEMATOCRIT 45 % (40-54); HEMOGLOBIN 14.6 G/DL (13.3-17.7); LYMPHOCYTES # (AUTO) 0.4 X 10^3 (1.0-4.0); LYMPHOCYTES % (AUTO) 2 % (12-44); MEAN CORPUSCULAR HEMOGLOBIN 27 PG (25-34); MEAN CORPUSCULAR HGB CONC 33 G/DL (32-36); MEAN CORPUSCULAR VOLUME 83 FL (80-99); MEAN PLATELET VOLUME 10.7 FL (7.4-10.4); MONOCYTES # (AUTO) 0.4 X 10^3 (0.0-1.0); MONOCYTES % (AUTO) 2 % (0-12); NEUTROPHILS # (AUTO) 16.8 X 10^3 (1.8-7.8); NEUTROPHILS % (AUTO) 95 % (42-75); PLATELET COUNT 138 10^3/uL (130-400); WHITE BLOOD COUNT 17.6 10^3/uL (4.3-11.0)
[2019-03-12] MEDS: MEROPENEM 500 MG/SWFI 10 ML IV PUSH IV SCH ×8 (03:57→23:06)
[2019-03-12 04:04] LABS: BUN/CREATININE RATIO 22; CALCIUM 8.3 MG/DL (8.5-10.1); CARBON DIOXIDE 26 MMOL/L (21-32); CHLORIDE 97 MMOL/L (98-107); CREATININE SERUM 0.81 MG/DL (0.60-1.30); GFR ESTIMATED > 60; GLUCOSE 150 MG/DL (70-105); MAGNESIUM 1.9 MG/DL (1.8-2.4); PHOSPHORUS 3.2 MG/DL (2.3-4.7); POTASSIUM 4.6 MMOL/L (3.6-5.0); SODIUM 135 MMOL/L (135-145)
[2019-03-12] MEDS ORDERED: FUROSEMIDE 40 MG/4 ML INJ (LASIX) ONE (04:26)
[2019-03-12] MEDS: MAGNESIUM 1 GM/100 ML IVPB 100 ML IV SCH (04:31)
[2019-03-12] MEDS: POTASSIUM CL 10MEQ/50ML IVPB 50 ML IV SCH ×5 (04:31→07:09)
[2019-03-12] MEDS: KCL 20 MEQ TAB (K-DUR) PO SCH (04:32)
[2019-03-12] MEDS: fentaNYL INJECTION 1,250 MCG in NS (IVPB) 250 ML IV SCH (04:34)
[2019-03-12] MEDS ORDERED: FUROSEMIDE 40 MG/4 ML INJ (LASIX) IVP ONE (04:45)
--- NOTE | 2019-03-12 04:50 | Pulmonary Progress Note ---
Subjective Time Seen by a Provider: 04:49 Subjective/Events-last exam pt is currently sedated on vent. Sepsis Event Evaluation Height, Weight, BMI Height: 5'10.00" Weight: 231lbs. 14.1oz. [id number]; 28.7 BMI Method:Stated Focused Exam Lactate Level 03/10/19 19:51: Lactic Acid Level 4.12*H 03/11/19 03:55: Lactic Acid Level 2.63*H 03/12/19 03:18: Lactic Acid Level 0.89 Lactic Acid Level Laboratory Tests Test 03/12/19 03:18 Lactic Acid Level 0.89 MMOL/L (0.50-2.00) Exam Exam Vital Signs Date Time Temp Pulse Resp B/P (MAP) Pulse Ox O2 Delivery O2 Flow Rate FiO2 03/12/19 04:10 76 17 92 Mechanical Ventilator 30.00 03/12/19 04:00 Mechanical Ventilator 30.00 03/12/19 03:00 77 17 150/74 (99) 94 Mechanical Ventilator 35.00 03/12/19 02:23 75 21 94 35 03/12/19 02:00 75 16 152/74 (100) 94 Mechanical Ventilator 35.00 03/12/19 01:00 78 03/12/19 01:00 78 12 145/70 (95) 94 Mechanical Ventilator 35.00 03/12/19 00:55 137/70 03/12/19 00:46 80 22 93 35 03/12/19 00:00 80 12 134/67 (89) 94 Mechanical Ventilator 35.00 03/12/19 00:00 Mechanical Ventilator 35.00 03/11/19 23:02 81 20 93 35 03/11/19 23:00 80 15 132/63 (86) 94 Mechanical Ventilator 35.00 03/11/19 22:00 80 14 137/67 (90) 93 Mechanical Ventilator 35.00 03/11/19 21:00 85 22 131/65 (87) 94 Mechanical Ventilator 35.00 03/11/19 20:38 84 21 99 35 03/11/19 20:00 87 21 144/71 (95) 94 Mechanical Ventilator 35.00 03/11/19 19:52 Mechanical Ventilator 35.00 03/11/19 19:52 97.5 03/11/19 19:00 93 03/11/19 19:00 93 11 151/76 (101) 94 Mechanical Ventilator 35.00 03/11/19 18:00 99 18 153/74 (100) 94 Mechanical Ventilator 40.00 03/11/19 17:00 105 18 154/74 (100) 94 Mechanical Ventilator 40.00 03/11/19 16:29 101 03/11/19 16:00 102 11 147/72 (97) 92 Mechanical Ventilator 40.00 03/11/19 16:00 Mechanical Ventilator 35.00 03/11/19 16:00 97.6 03/11/19 15:00 70 13 158/67 (97) 92 Mechanical Ventilator 40.00 03/11/19 14:33 57 18 94 35 03/11/19 14:00 56 17 161/82 (108) 95 Mechanical Ventilator 40.00 03/11/19 13:17 72 18 95 35 03/11/19 13:00 60 24 160/83 (108) 95 Mechanical Ventilator 40.00 03/11/19 12:00 62 24 159/79 (105) 94 Mechanical Ventilator 40.00 03/11/19 12:00 97.4 03/11/19 12:00 Mechanical Ventilator 35.00 03/11/19 11:00 62 24 151/75 (100) 91 Mechanical Ventilator 40.00 03/11/19 10:27 61 24 94 35 03/11/19 10:00 62 23 153/78 (103) 94 Mechanical Ventilator 40.00 03/11/19 09:00 62 24 149/76 (100) 94 Mechanical Ventilator 40.00 03/11/19 08:42 79 24 96 35 03/11/19 08:00 Mechanical Ventilator 35.00 03/11/19 08:00 65 24 149/73 (98) 93 Mechanical Ventilator 40.00 03/11/19 07:49 67 03/11/19 07:00 70 23 152/74 (100) 93 Mechanical Ventilator 40.00 03/11/19 07:00 68 03/11/19 06:41 97.5 03/11/19 06:12 73 24 95 35 03/11/19 06:00 75 23 145/71 (95) 95 Mechanical Ventilator 35.00 03/11/19 05:20 24 03/11/19 05:00 70 24 162/75 (104) 94 Mechanical Ventilator 35.00 I & O 03/12/19 07:00 Intake Total 1200 ml Output Total 875 ml Balance 325 ml Height & Weight Height: 5'10.00" Weight: 231lbs. 14.1oz. [id number]; 28.7 BMI Method:Stated General Appearance: Other (Patient on vent unresponsive) HEENT: PERRL/EOMI, Normal ENT Inspection Neck: Normal Inspection Respiratory: No Accessory Muscle Use, No Respiratory Distress Cardiovascular: Regular Rate, Rhythm, No Murmur Capillary Refill: Less Than 3 Seconds Gastrointestinal: non tender, soft Extremity: Normal Capillary Refill, Normal Inspection, No Calf Tenderness, No Pedal Edema Neurologic/Psychiatric: Alert, Disoriented, Other (lethargic) Skin: Normal Color, Warm/Dry Lymphatic: No Adenopathy Results Lab Laboratory Tests 03/11/19 03:55 03/12/19 03:18 Assessment/Plan Assessment/Plan Acute on chronic respiratory failure with copious amounts of sputum -S/P bronchoscopy with EBUS -Continue ventilator therapy -Will attempt to wean vent today -Recurrent acute respiratory failure requiring ventilator therapy 01/06 and multiple hospitalizations. Metabolic lactic acidosis - improving -IVF- give 30cc/kg of IVF -Continue Huseyin Alexander Mediastinal lymphadenopathy COPDAE -Duoneb -Solumedrol KEYONA EVANS DO March 12, 2019 04:50
[2019-03-12] MEDS ORDERED: morphine INJ 4 MG/ML 1 ML (VIAL/SYRINGE) IVP PRN (05:00)
[2019-03-12] MEDS: LACTATED RINGERS 1,000 ML IV SCH ×3 (05:56→19:52)
[2019-03-12] MEDS: methylPREDNISolone 125 MG (Solu-MEDROL) VIAL IVP SCH ×4 (06:00→23:06)
[2019-03-12] MEDS ORDERED: TROUGH ORDER-PHARMACY XX NR (06:00)
--- NOTE | 2019-03-12 07:50 | Diagnostic Imaging Report ---
Indication: Dyspnea. Comparison: 03/11/2019. Findings: Stable ET tube. The enteric tube is not well seen on today's exam. Stable right adjacent intravenous catheter. Patchy basilar opacities have not changed and are greater on the right. No pleural effusion or pneumothorax. Stable cardiac enlargement. Impression: 1. Residual support devices are in good position. Enteric tube is not well appreciated on today's exam. Dictated by: Dictated on workstation # [id number]
--- NOTE | 2019-03-12 08:02 | Progress Note (SOAP) ---
Subjective Time Seen by a Provider: 08:00 Subjective/Events-last exam Patient awake this morning. Patient to be extubated today. Patient stable. Patient still on vent Focused Exam Lactate Level 03/10/19 19:51: Lactic Acid Level 4.12*H 03/11/19 03:55: Lactic Acid Level 2.63*H 03/12/19 03:18: Lactic Acid Level 0.89 Objective Exam Vital Signs Date Time Temp Pulse Resp B/P (MAP) Pulse Ox O2 Delivery O2 Flow Rate FiO2 03/12/19 07:01 69 21 99 30 03/12/19 07:00 74 03/12/19 06:00 71 14 144/80 (101) 93 Mechanical Ventilator 30.00 03/12/19 05:00 74 24 155/73 (100) 92 Mechanical Ventilator 30.00 03/12/19 04:10 76 17 92 Mechanical Ventilator 30.00 03/12/19 04:09 76 20 92 30 03/12/19 04:00 75 25 152/75 (100) 93 Mechanical Ventilator 35.00 03/12/19 04:00 Mechanical Ventilator 30.00 03/12/19 03:00 77 17 150/74 (99) 94 Mechanical Ventilator 35.00 03/12/19 02:23 75 21 94 35 03/12/19 02:00 75 16 152/74 (100) 94 Mechanical Ventilator 35.00 03/12/19 01:00 78 03/12/19 01:00 78 12 145/70 (95) 94 Mechanical Ventilator 35.00 03/12/19 00:55 137/70 03/12/19 00:46 80 22 93 35 03/12/19 00:00 80 12 134/67 (89) 94 Mechanical Ventilator 35.00 03/12/19 00:00 Mechanical Ventilator 35.00 03/11/19 23:02 81 20 93 35 03/11/19 23:00 80 15 132/63 (86) 94 Mechanical Ventilator 35.00 03/11/19 22:00 80 14 137/67 (90) 93 Mechanical Ventilator 35.00 03/11/19 21:00 85 22 131/65 (87) 94 Mechanical Ventilator 35.00 03/11/19 20:38 84 21 99 35 03/11/19 20:00 87 21 144/71 (95) 94 Mechanical Ventilator 35.00 03/11/19 19:52 Mechanical Ventilator 35.00 03/11/19 19:52 97.5 03/11/19 19:00 93 03/11/19 19:00 93 11 151/76 (101) 94 Mechanical Ventilator 35.00 03/11/19 18:00 99 18 153/74 (100) 94 Mechanical Ventilator 40.00 03/11/19 17:00 105 18 154/74 (100) 94 Mechanical Ventilator 40.00 03/11/19 16:29 101 03/11/19 16:00 102 11 147/72 (97) 92 Mechanical Ventilator 40.00 03/11/19 16:00 Mechanical Ventilator 35.00 03/11/19 16:00 97.6 03/11/19 15:00 70 13 158/67 (97) 92 Mechanical Ventilator 40.00 03/11/19 14:33 57 18 94 35 03/11/19 14:00 56 17 161/82 (108) 95 Mechanical Ventilator 40.00 03/11/19 13:17 72 18 95 35 03/11/19 13:00 60 24 160/83 (108) 95 Mechanical Ventilator 40.00 03/11/19 12:00 62 24 159/79 (105) 94 Mechanical Ventilator 40.00 03/11/19 12:00 97.4 03/11/19 12:00 Mechanical Ventilator 35.00 03/11/19 11:00 62 24 151/75 (100) 91 Mechanical Ventilator 40.00 03/11/19 10:27 61 24 94 35 03/11/19 10:00 62 23 153/78 (103) 94 Mechanical Ventilator 40.00 03/11/19 09:00 62 24 149/76 (100) 94 Mechanical Ventilator 40.00 03/11/19 08:42 79 24 96 35 03/11/19 08:00 Mechanical Ventilator 35.00 03/11/19 08:00 65 24 149/73 (98) 93 Mechanical Ventilator 40.00 I & O 03/12/19 07:00 Intake Total 1200 ml Output Total 3150 ml Balance -1950 ml Capillary Refill : Less Than 3 Seconds General Appearance: No Apparent Distress, WD/WN HEENT: Normal ENT Inspection Neck: Normal Inspection Respiratory: Chest Non Tender, Lungs Clear, No Accessory Muscle Use, No Respiratory Distress, Decreased Breath Sounds Cardiovascular: Regular Rate, Rhythm Gastrointestinal: non tender, soft Results Lab Laboratory Tests 03/12/19 03:18 Laboratory Tests 03/11/19 12:24: Glucometer 154H 03/11/19 14:41: Blood Gas Puncture Site L RAD, Blood Gas Patient Temperature 98, Arterial Blood pH 7.43, Arterial Blood Partial Pressure CO2 53H, Arterial Blood Partial Pressure O2 78L, Arterial Blood HCO3 34H, Arterial Blood Total CO2 35.7H, Arterial Blood Oxygen Saturation 96, Arterial Blood Base Excess 9.3H, Jeff Test YES-POS, Blood Gas Ventilator Setting YES, Blood Gas Inspired Oxygen 35% 03/11/19 18:05: Vancomycin Level Trough 24.0H 03/11/19 18:18: Glucometer 171H 03/11/19 22:58: Glucometer 135H 03/12/19 03:18: White Blood Count 17.6H, Red Blood Count 5.38, Hemoglobin 14.6, Hematocrit 45, Mean Corpuscular Volume 83, Mean Corpuscular Hemoglobin 27, Mean Corpuscular Hemoglobin Concent 33, Red Cell Distribution Width 18.0H, Platelet Count 138, Mean Platelet Volume 10.7H, Neutrophils (%) (Auto) 95H, Lymphocytes (%) (Auto) 2L, Monocytes (%) (Auto) 2, Eosinophils (%) (Auto) 0, Basophils (%) (Auto) 0, Neutrophils # (Auto) 16.8H, Lymphocytes # (Auto) 0.4L, Monocytes # (Auto) 0.4, Eosinophils # (Auto) 0.0, Basophils # (Auto) 0.0, Sodium Level 135, Potassium Level 4.6, Chloride Level 97L, Carbon Dioxide Level 26, Anion Gap 12, Blood Urea Nitrogen 18, Creatinine 0.81, Estimat Glomerular Filtration Rate > 60, BUN/Creatinine Ratio 22, Glucose Level 150H, Lactic Acid Level 0.89, Calcium Level 8.3L, Phosphorus Level 3.2, Magnesium Level 1.9 03/12/19 03:25: Blood Gas Puncture Site L RAD, Blood Gas Patient Temperature 99.5, Arterial Blood pH 7.45H, Arterial Blood Partial Pressure CO2 50H, Arterial Blood Partial Pressure O2 72L, Arterial Blood HCO3 34H, Arterial Blood Total CO2 35.1H, Arterial Blood Oxygen Saturation 94, Arterial Blood Base Excess 9.3H, Jeff Test YES-POS, Blood Gas Ventilator Setting YES, Blood Gas Inspired Oxygen 35% 03/12/19 06:05: Vancomycin Level Trough 18.2 Microbiology 03/10/19 Blood Culture - Preliminary, Resulted No growth 03/11/19 Gram Stain - Final, Resulted 03/11/19 Bronchial Culture, Resulted Pending 03/11/19 Fungal Culture 1, Resulted Pending Assessment/Plan Assessment/Plan Assess & Plan/Chief Complaint Acute respiratory failure. Acute on chronic respiratory failure. COPD with acute exacerbation. Hypoxia. Tobaccoism. Noncompliance history. . 03/12/19. Acute respiratory failure. Acute and chronic respiratory failure. COPD with acute exacerbation. Hypoxia. Tobaccoism. Noncompliance.. Elevated lactic acid now normal Clinical Quality Measures Admission Status Admission Dx Acute and chronic respiratory failure. Metabolic lactic acidosis. Hypotension. Coronary edema. COPD with acute exacerbation DVT/VTE Risk/Contraindication: Risk Factor Score Per Nursin RFS Level Per Nursing on Admit: 4+=Very High ART CASANOVA DO March 12, 2019 08:02
[2019-03-12 08:37] LABS: ABG BASE EXCESS 10.9 MMOL/L (-2.5-2.5); ABG OXYGEN SATURATION 91 % (94-100); ABG PCO2 49 MMHG (35-45); ABG PH 7.47 (7.37-7.43); ABG PO2 61 MMHG (79-93); ABG TCO2 36.7 MMOL/L (21.0-31.0)
[2019-03-12 08:41] LABS: ALLENS TEST YES-POS; INSPIRED O2 30%; PATIENT TEMP 98; VENTILATOR YES
--- NOTE | 2019-03-12 09:08 | NUR ---
PT EXTUBATED PER DR EVANS ORDERS AND PLACED ON 4 LPM NASAL CANNULA. PT AYO PROCEDURE WELL.
[2019-03-12] MEDS: PANTOPRAZOLE 40 MG (PROTONIX) VIAL IV SCH (09:28)
[2019-03-12] MEDS ORDERED: VANCOMYCIN 1500 MG/NS 500 ML IVPB IV SCH ×2 (11:00)
--- NOTE | 2019-03-12 13:17 | NUR ---
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 He welcomed my presence, held my hand and shared openly about his recent health challenges and corresponding concerns, hopes, and experiences trusting God.
--- NOTE | 2019-03-12 14:24 | ST Dysphagia Evaluation ---
Speech Evaluation-General Medical Diagnosis COPD Onset Date: March 09, 2019 Therapy Diagnosis Therapy Diagnosis: Orophyryngeal Dysphagia Precautions Precautions: Aspiration Precautions/Isolations: Fall Prevention, Standard Precautions Referral Referring Physician: Dr. Lacey Medical History Pertinent Medical History: COPD, GERD, HTN, Smoking Social History Home: Senior Living Speech PLF/Current-Dysphagia Prior Level of Function The patient lived at a local shelter where he was mobile and independent for many of his daily needs. Subjective The patient was pleasant and cooperative with the Bedside Dyphagia Evaluation Cognitive Status Patient Orientation: Person, Place, Eyes Open Face Facial Symmetry: Symmetrical Oral-Facial Assessment Oral-Facial Dentition: Normal Smile: Normal Puff Cheeks: Reduced Strength Lingual Protrusion: Normal Lingual ROM: Normal Lingual Strength: Normal Pharynx Velopharyngeal Move.: Normal Volitional Dry Swallow: Yes Voluntary Cough: Yes Productive Cough: Yes Dysphagia Evaluation Consistencies Presented: Thin Liquid, Mechanical Soft, Pureed Oral phase within functional limits for all consistencies presented. Pharyngeal phase within functional limits for consistencies presented. He is noted to eat too rapidly. Dietary Recommendations: Mechanical Soft Liquid Recommendations: Thin Swallowing Precautions: Alternate Liquids/Solids, Decreased Bolus 1/2 Tsp, Decreased Rate of Oral Intake, Liquids from Cup, Liquids from Straw, Small Bites and Sips, Sitting Upright 90 Degrees, Sitting 90 Degrees 30 Post Intake Dysphagia Evaluation Summary The patient is a 58 year old male who presented to the ED on 03/09/19 due to respiratory distress. He was intubated that date before being admitted to the ICU. The patient was extubated this date and was referred for a Bedside Dysphagia Evaluation. Thin liquid was presented by 1/2 tsp (x2), small sip via straw and small sip via cup without difficulty. Puree and mechanical soft t extures were presented without difficulty. The patient is noted to have a very quick rate of oral intake and required verbal cues to slow down. The patient will be on a Dysphagia II diet level with thin liquids. The patient's nurse was informed and the diet level was written on the white board in the room. Barriers to Learning The patient has decreased cognitive function. Speech Short Term Goals Short Term Goals Short Term Goals 1) The patient will tolerate the least restrictive diet without s/s of aspiration with 90% accuracy given minimal verbal cues. 2) The patient will utilize compensatory strategies as trained for safe oral intake with 90% accuracy or greater with minimal verbal cues. Speech Associate Professor Of Forestry Goals Associate Professor Of Forestry Goals The patient will maintain adequate nutrition and hydration via safe effective swallow function. Speech-Plan Patient/Family Goals Patient/Family Goals: The patient will return to the shelter upon hospital discharge. Treatment Plan Speech Therapy Treatment Plan: Continue Plan of Care The patient will receive skilled ST services for dysphagia. Treatment Duration: March 13, 2019 Frequency: 2 times per week Estimated Hrs Per Day: .25 hour per day Rehab Potential: Fair Barriers to Learning: The patient has a decreased level of cognitive function. Pt/Family Agrees to Plan: Yes Safety Risks/Education Teaching Recipient: Patient Teaching Methods: Discussion Response to Teaching: Verbalize Understanding Education Topics Provided: Safety of oral intake. Time Speech Therapy Time In: 13:35 Speech Therapy Time Out: 13:50 Total Billed Time: 15 Billed Treatment Time 1, MARYJANE Rojas March 12, 2019 14:24
[2019-03-12] MEDS: ENOXAPARIN 40 MG/0.4 ML (LOVENOX) SYR SC SCH (17:05)
[2019-03-13] VITALS (12 sets, daily range): BP systolic 106–164; BP diastolic 67–85
[2019-03-13] MEDS: RT-ALBUTEROL/IPRATROPIUM 3 ML (DUONEB) VIAL INH SCH ×6 (01:55→21:51)
[2019-03-13 03:06] LABS: BASOPHILS % (AUTO) 0 % (0-10); EOSINOPHILS % (AUTO) 0 % (0-10); HEMATOCRIT 45 % (40-54); HEMOGLOBIN 14.3 G/DL (13.3-17.7); LYMPHOCYTES # (AUTO) 0.4 X 10^3 (1.0-4.0); LYMPHOCYTES % (AUTO) 3 % (12-44); MEAN CORPUSCULAR HEMOGLOBIN 27 PG (25-34); MEAN CORPUSCULAR HGB CONC 32 G/DL (32-36); MEAN CORPUSCULAR VOLUME 84 FL (80-99); MEAN PLATELET VOLUME 10.2 FL (7.4-10.4); MONOCYTES # (AUTO) 0.2 X 10^3 (0.0-1.0); MONOCYTES % (AUTO) 2 % (0-12); NEUTROPHILS # (AUTO) 14.9 X 10^3 (1.8-7.8); NEUTROPHILS % (AUTO) 96 % (42-75); PLATELET COUNT 133 10^3/uL (130-400); RED CELL DISTRIBUTION WIDTH 18.4 % (10.0-14.5); WHITE BLOOD COUNT 15.6 10^3/uL (4.3-11.0)
[2019-03-13 03:23] LABS: BUN/CREATININE RATIO 24; CALCIUM 8.5 MG/DL (8.5-10.1); CARBON DIOXIDE 31 MMOL/L (21-32); CHLORIDE 99 MMOL/L (98-107); CREATININE SERUM 0.82 MG/DL (0.60-1.30); GFR ESTIMATED > 60; GLUCOSE 113 MG/DL (70-105); PHOSPHORUS 3.5 MG/DL (2.3-4.7); POTASSIUM 4.2 MMOL/L (3.6-5.0); SODIUM 140 MMOL/L (135-145)
[2019-03-13] MEDS: MAGNESIUM 1 GM/100 ML IVPB 100 ML IV SCH (04:42)
[2019-03-13] MEDS: POTASSIUM CL 10MEQ/50ML IVPB 50 ML IV SCH (04:42)
[2019-03-13] MEDS: KCL 20 MEQ TAB (K-DUR) PO SCH (04:42)
[2019-03-13] MEDS: methylPREDNISolone 125 MG (Solu-MEDROL) VIAL IVP SCH ×2 (05:16→08:06)
[2019-03-13] MEDS: MEROPENEM 500 MG/SWFI 10 ML IV PUSH IV SCH ×8 (05:16→22:29)
[2019-03-13 05:45] LABS: PARAINFLU 2 PCR Not Detected (Not Detected)
--- NOTE | 2019-03-13 05:50 | Pulmonary Progress Note ---
Subjective Time Seen by a Provider: 05:50 Subjective/Events-last exam PT is doing better off Ventilator. Sepsis Event Evaluation Height, Weight, BMI Height: 5'10.00" Weight: 235lbs. 8.0oz. 106.396136ja; 28.7 BMI Method:Stated Focused Exam Lactate Level 03/10/19 19:51: Lactic Acid Level 4.12*H 03/11/19 03:55: Lactic Acid Level 2.63*H 03/12/19 03:18: Lactic Acid Level 0.89 Exam Exam Vital Signs Date Time Temp Pulse Resp B/P (MAP) Pulse Ox O2 Delivery O2 Flow Rate FiO2 03/13/19 05:00 80 10 144/77 (99) 93 Nasal Cannula 2.00 03/13/19 04:00 90 10 141/77 (98) 92 Nasal Cannula 2.00 03/13/19 04:00 91 Nasal Cannula 2.00 03/13/19 03:20 103 38 94 Nasal Cannula 2.00 03/13/19 03:00 102 25 135/69 (91) 88 Room Air 03/13/19 02:35 92 23 130/75 (93) 92 Nasal Cannula 1.00 03/13/19 01:55 94 Nasal Cannula 1.00 03/13/19 01:00 78 20 124/67 (86) 94 Nasal Cannula 1.00 03/13/19 01:00 87 03/13/19 00:00 95 Nasal Cannula 1.00 03/12/19 23:59 97.4 86 22 134/101 (112) 95 Nasal Cannula 1.00 03/12/19 23:00 92 20 128/71 (90) 93 Nasal Cannula 1.00 03/12/19 22:00 98 20 108/60 (76) 93 Nasal Cannula 1.00 03/12/19 21:54 100 22 100 Nasal Cannula 1.00 03/12/19 21:52 97 Nasal Cannula 3.00 03/12/19 21:00 107 25 142/67 (92) 94 Nasal Cannula 3.00 03/12/19 20:02 97.9 03/12/19 20:00 87 26 135/69 (91) 92 Nasal Cannula 3.00 03/12/19 19:58 92 Nasal Cannula 4.00 03/12/19 19:00 91 27 120/76 (91) 96 Nasal Cannula 3.00 03/12/19 19:00 91 03/12/19 18:46 Nasal Cannula 3.00 03/12/19 18:43 95 Nasal Cannula 4.00 03/12/19 18:00 88 24 121/71 (88) 95 Nasal Cannula 4.00 03/12/19 17:00 71 14 120/68 (85) 97 Nasal Cannula 4.00 03/12/19 16:00 98.0 03/12/19 16:00 86 10 108/63 (78) 91 Nasal Cannula 4.00 03/12/19 16:00 Nasal Cannula 4.00 03/12/19 15:00 91 12 125/85 (98) 91 Nasal Cannula 4.00 03/12/19 14:34 91 Nasal Cannula 4.00 03/12/19 14:00 71 17 130/76 (94) 92 Nasal Cannula 4.00 03/12/19 13:00 64 23 92/45 (61) 94 Nasal Cannula 4.00 03/12/19 12:57 63 03/12/19 12:00 98.4 03/12/19 12:00 73 20 127/73 (91) Nasal Cannula 4.00 03/12/19 12:00 Nasal Cannula 4.00 03/12/19 11:00 90 13 128/83 (98) Nasal Cannula 4.00 03/12/19 10:27 95 Mechanical Ventilator 4.00 03/12/19 10:00 71 22 146/74 (98) 93 Nasal Cannula 4.00 03/12/19 09:29 Nasal Cannula 4.00 03/12/19 09:08 93 Nasal Cannula 4.00 03/12/19 09:00 70 27 147/75 (99) 91 Mechanical Ventilator 30.00 03/12/19 08:31 71 11 91 30 03/12/19 08:00 99.0 03/12/19 08:00 73 14 145/74 (97) 92 Mechanical Ventilator 30.00 03/12/19 08:00 Mechanical Ventilator 35.00 03/12/19 07:01 69 21 99 30 03/12/19 07:00 74 27 137/68 (91) Mechanical Ventilator 30.00 03/12/19 07:00 74 03/12/19 06:00 71 14 144/80 (101) 93 Mechanical Ventilator 30.00 I & O 03/13/19 07:00 Intake Total 940 ml Output Total 4925 ml Balance -3985 ml Height & Weight Height: 5'10.00" Weight: 235lbs. 8.0oz. 106.394133ur; 28.7 BMI Method:Stated General Appearance: No Apparent Distress, WD/WN HEENT: Normal ENT Inspection Neck: Normal Inspection Respiratory: Chest Non Tender, Lungs Clear, No Accessory Muscle Use, No Respiratory Distress, Decreased Breath Sounds Cardiovascular: Regular Rate, Rhythm Capillary Refill: Less Than 3 Seconds Gastrointestinal: non tender, soft Extremity: Normal Capillary Refill, Normal Inspection, No Calf Tenderness, No Pedal Edema Neurologic/Psychiatric: Alert, Disoriented, Other (lethargic) Skin: Normal Color, Warm/Dry Lymphatic: No Adenopathy Results Lab Laboratory Tests 03/12/19 03:18 03/13/19 03:00 Assessment/Plan Assessment/Plan Acute on chronic respiratory failure with copious amounts of sputum -S/P bronchoscopy with EBUS -s/p ventilator therapy - Extubated yesterday PNA with Bacteremia with Corynebacterium and Moraxella in sputum -PNA was present on admission -Continue Merrem and D/c Vanco, Mediastinal lymphadenopathy s/p bronchoscopy with EBUS COPDAE -Duoneb -Solumedrol - decrease to [id number] KEYONA EVANS DO March 13, 2019 05:50
--- NOTE | 2019-03-13 07:18 | Diagnostic Imaging Report ---
INDICATION: Dyspnea. COMPARISON: 03/12/2019 FINDINGS: Single frontal radiographic view of the chest was obtained and demonstrates interval improved aeration of the right base. Left lung is relatively clear. No large effusion is seen on the left. No pneumothorax is identified on either side. Cardiac silhouette and pulmonary vasculature is within normal limits. Patient has since been extubated. Right internal jugular central venous catheter persists with tip in the high SVC likely at the junction of the innominate veins. IMPRESSION: 1. Interval improved aeration of right base. There may be some residual effusion and/or associated atelectasis versus infiltrate. 2. Interval extubation. Dictated by: Dictated on workstation # [id number]
--- NOTE | 2019-03-13 07:50 | Progress Note (SOAP) ---
Subjective Time Seen by a Provider: 07:48 Subjective/Events-last exam feeling much better today. Patient on nasal oxygen. Chest x-ray today shows improvement. Patient to be transferred to medical floor today. Patient in the right direction Focused Exam Lactate Level 03/10/19 19:51: Lactic Acid Level 4.12*H 03/11/19 03:55: Lactic Acid Level 2.63*H 03/12/19 03:18: Lactic Acid Level 0.89 Objective Exam Vital Signs Date Time Temp Pulse Resp B/P (MAP) Pulse Ox O2 Delivery O2 Flow Rate FiO2 03/13/19 06:26 94 Nasal Cannula 2.00 03/13/19 06:25 95 13 106/72 (83) 94 Nasal Cannula 2.00 03/13/19 05:00 80 10 144/77 (99) 93 Nasal Cannula 2.00 03/13/19 04:00 90 10 141/77 (98) 92 Nasal Cannula 2.00 03/13/19 04:00 91 Nasal Cannula 2.00 03/13/19 03:20 103 38 94 Nasal Cannula 2.00 03/13/19 03:00 102 25 135/69 (91) 88 Room Air 03/13/19 02:35 92 23 130/75 (93) 92 Nasal Cannula 1.00 03/13/19 01:55 94 Nasal Cannula 1.00 03/13/19 01:00 78 20 124/67 (86) 94 Nasal Cannula 1.00 03/13/19 01:00 87 03/13/19 00:00 95 Nasal Cannula 1.00 03/12/19 23:59 97.4 86 22 134/101 (112) 95 Nasal Cannula 1.00 03/12/19 23:00 92 20 128/71 (90) 93 Nasal Cannula 1.00 03/12/19 22:00 98 20 108/60 (76) 93 Nasal Cannula 1.00 03/12/19 21:54 100 22 100 Nasal Cannula 1.00 03/12/19 21:52 97 Nasal Cannula 3.00 03/12/19 21:00 107 25 142/67 (92) 94 Nasal Cannula 3.00 03/12/19 20:02 97.9 03/12/19 20:00 87 26 135/69 (91) 92 Nasal Cannula 3.00 03/12/19 19:58 92 Nasal Cannula 4.00 03/12/19 19:00 91 27 120/76 (91) 96 Nasal Cannula 3.00 03/12/19 19:00 91 03/12/19 18:46 Nasal Cannula 3.00 03/12/19 18:43 95 Nasal Cannula 4.00 03/12/19 18:00 88 24 121/71 (88) 95 Nasal Cannula 4.00 03/12/19 17:00 71 14 120/68 (85) 97 Nasal Cannula 4.00 03/12/19 16:00 98.0 03/12/19 16:00 86 10 108/63 (78) 91 Nasal Cannula 4.00 03/12/19 16:00 Nasal Cannula 4.00 03/12/19 15:00 91 12 125/85 (98) 91 Nasal Cannula 4.00 03/12/19 14:34 91 Nasal Cannula 4.00 03/12/19 14:00 71 17 130/76 (94) 92 Nasal Cannula 4.00 03/12/19 13:00 64 23 92/45 (61) 94 Nasal Cannula 4.00 03/12/19 12:57 63 03/12/19 12:00 98.4 03/12/19 12:00 73 20 127/73 (91) Nasal Cannula 4.00 03/12/19 12:00 Nasal Cannula 4.00 03/12/19 11:00 90 13 128/83 (98) Nasal Cannula 4.00 03/12/19 10:27 95 Mechanical Ventilator 4.00 03/12/19 10:00 71 22 146/74 (98) 93 Nasal Cannula 4.00 03/12/19 09:29 Nasal Cannula 4.00 03/12/19 09:08 93 Nasal Cannula 4.00 03/12/19 09:00 70 27 147/75 (99) 91 Mechanical Ventilator 30.00 03/12/19 08:31 71 11 91 30 03/12/19 08:00 99.0 03/12/19 08:00 73 14 145/74 (97) 92 Mechanical Ventilator 30.00 03/12/19 08:00 Mechanical Ventilator 35.00 I & O 03/13/19 07:00 Intake Total 940 ml Output Total 4925 ml Balance -3985 ml Capillary Refill : Less Than 3 Seconds General Appearance: No Apparent Distress, WD/WN Neck: Full Range of Motion, Normal Inspection, Non Tender Respiratory: Chest Non Tender, Lungs Clear, No Accessory Muscle Use, No Respiratory Distress, Decreased Breath Sounds Cardiovascular: Regular Rate, Rhythm, No Murmur Gastrointestinal: non tender, soft Results Lab Laboratory Tests 03/13/19 03:00 Laboratory Tests 03/12/19 08:29: Blood Gas Puncture Site RT RADIAL, Blood Gas Patient Temperature 98, Arterial Blood pH 7.47H, Arterial Blood Partial Pressure CO2 49H, Arterial Blood Partial Pressure O2 61L, Arterial Blood HCO3 35H, Arterial Blood Total CO2 36.7H, Arterial Blood Oxygen Saturation 91L, Arterial Blood Base Excess 10.9H, Jeff Test YES-POS, Blood Gas Ventilator Setting YES, Blood Gas Inspired Oxygen 30% 03/12/19 11:39: Glucometer 116H 03/12/19 17:35: Glucometer 115H 03/13/19 03:00: White Blood Count 15.6H, Red Blood Count 5.28, Hemoglobin 14.3, Hematocrit 45, Mean Corpuscular Volume 84, Mean Corpuscular Hemoglobin 27, Mean Corpuscular Hemoglobin Concent 32, Red Cell Distribution Width 18.4H, Platelet Count 133, Mean Platelet Volume 10.2, Neutrophils (%) (Auto) 96H, Lymphocytes (%) (Auto) 3L , Monocytes (%) (Auto) 2, Eosinophils (%) (Auto) 0, Basophils (%) (Auto) 0, Neutrophils # (Auto) 14.9H, Lymphocytes # (Auto) 0.4L, Monocytes # (Auto) 0.2, Eosinophils # (Auto) 0.0, Basophils # (Auto) 0.0, Sodium Level 140, Potassium Level 4.2, Chloride Level 99, Carbon Dioxide Level 31, Anion Gap 10, Blood Urea Nitrogen 20H, Creatinine 0.82, Estimat Glomerular Filtration Rate > 60, BUN/Creatinine Ratio 24, Glucose Level 113H, Calcium Level 8.5, Phosphorus Level 3.5, Magnesium Level 2.0 Microbiology 03/10/19 Blood Culture - Preliminary, Resulted No growth 03/11/19 Gram Stain - Final, Resulted 03/11/19 Bronchial Culture, Resulted Pending 03/11/19 Fungal Culture 1, Resulted Pending Assessment/Plan Assessment/Plan Assess & Plan/Chief Complaint Acute respiratory failure. Acute on chronic respiratory failure. COPD with acute exacerbation. Hypoxia. Tobaccoism. Noncompliance history. . 03/12/19. Acute respiratory failure. Acute and chronic respiratory failure. COPD with acute exacerbation. Hypoxia. Tobaccoism. Noncompliance.. Elevated lactic acid now normal. . 03/13/19. Acute respiratory failure resolved. Acute and chronic respiratory failure. COPD with acute exacerbation. Hypoxia. Tobaccoism. Noncompliant. Patient doing better to be transferred to medical floor today Clinical Quality Measures Admission Status Admission Dx Acute and chronic respiratory failure. Metabolic lactic acidosis. Hypotension. Coronary edema. COPD with acute exacerbation DVT/VTE Risk/Contraindication: Risk Factor Score Per Nursin RFS Level Per Nursing on Admit: 4+=Very High ART CASANOVA DO March 13, 2019 07:50
[2019-03-13] MEDS: PANTOPRAZOLE 40 MG (PROTONIX) VIAL IV SCH (08:05)
--- NOTE | 2019-03-13 09:00 | NUR ---
Patient transferred to [facility] per W/C accompanied by ICU RNstaff. Patient and family notified and understand transfer. Personal belongings with patient. Report given to THIS RN AT BEDSIDE. NOTE THAT IN REPORT [employer]PER[employer] VOICED SHE HAD TAKEN HIS O2 OFF HE WAS ON RA -- PT WAS SATING HIGH 80S -- O2 REAPPLIED AND RT WAS CALLED -- NOTE THAT PT VOICED HE WEAR HIS O2 AT HOME AT 2-3L/NC
--- NOTE | 2019-03-13 11:09 | NUR ---
provided Prayer and Communion.
[2019-03-13] MEDS ORDERED: CLOPIDOGREL 75 MG (PLAVIX) TABLET PO SCH (15:00)
[2019-03-13] MEDS: ENOXAPARIN 40 MG/0.4 ML (LOVENOX) SYR SC SCH (17:02)
[2019-03-14] MEDS: RT-ALBUTEROL/IPRATROPIUM 3 ML (DUONEB) VIAL INH SCH ×6 (01:25→23:38)
[2019-03-14] MEDS: methylPREDNISolone 125 MG (Solu-MEDROL) VIAL IVP SCH ×3 (01:33→20:02)
[2019-03-14 03:53] LABS: BASOPHILS % (AUTO) 0 % (0-10); EOSINOPHILS % (AUTO) 0 % (0-10); HEMATOCRIT 46 % (40-54); HEMOGLOBIN 14.5 G/DL (13.3-17.7); LYMPHOCYTES # (AUTO) 0.7 X 10^3 (1.0-4.0); LYMPHOCYTES % (AUTO) 6 % (12-44); MEAN CORPUSCULAR HEMOGLOBIN 27 PG (25-34); MEAN CORPUSCULAR HGB CONC 32 G/DL (32-36); MEAN CORPUSCULAR VOLUME 83 FL (80-99); MEAN PLATELET VOLUME 10.7 FL (7.4-10.4); MONOCYTES # (AUTO) 0.9 X 10^3 (0.0-1.0); MONOCYTES % (AUTO) 8 % (0-12); NEUTROPHILS # (AUTO) 9.6 X 10^3 (1.8-7.8); NEUTROPHILS % (AUTO) 86 % (42-75); PLATELET COUNT 121 10^3/uL (130-400); RED CELL DISTRIBUTION WIDTH 18.7 % (10.0-14.5); WHITE BLOOD COUNT 11.2 10^3/uL (4.3-11.0)
[2019-03-14 04:03] VITALS: BP 164/79
[2019-03-14 04:11] LABS: BUN/CREATININE RATIO 28; CALCIUM 8.6 MG/DL (8.5-10.1); CARBON DIOXIDE 30 MMOL/L (21-32); CHLORIDE 101 MMOL/L (98-107); CREATININE SERUM 0.74 MG/DL (0.60-1.30); GFR ESTIMATED > 60; GLUCOSE 103 MG/DL (70-105); MAGNESIUM 2.3 MG/DL (1.8-2.4); PHOSPHORUS 3.5 MG/DL (2.3-4.7); POTASSIUM 4.2 MMOL/L (3.6-5.0); SODIUM 142 MMOL/L (135-145)
[2019-03-14] MEDS: MEROPENEM 500 MG/SWFI 10 ML IV PUSH IV SCH ×8 (04:13→21:32)
--- NOTE | 2019-03-14 05:20 | Pulmonary Progress Note ---
Sepsis Event Evaluation Height, Weight, BMI Height: 5'." Weight: 235lbs. 8.0oz. 106.288176ae; 28.7 BMI Method:Stated Focused Exam Lactate Level 03/12/19 03:18: Lactic Acid Level 0.89 Exam Exam Vital Signs Date Time Temp Pulse Resp B/P (MAP) Pulse Ox O2 Delivery O2 Flow Rate FiO2 03/14/19 04:03 99.0 77 20 164/79 (107) 94 Nasal Cannula 2.00 03/14/19 01:25 92 Nasal Cannula 2.00 03/13/19 23:15 99.4 83 18 164/72 (102) 97 Nasal Cannula 2.00 03/13/19 21:51 91 Nasal Cannula 2.00 03/13/19 20:00 90 Nasal Cannula 2.00 03/13/19 19:46 99.2 90 20 136/67 (90) 91 Nasal Cannula 2.00 03/13/19 17:58 90 Nasal Cannula 2.00 03/13/19 16:29 98.8 91 20 91 Nasal Cannula 2.00 03/13/19 16:19 140/68 (92) 03/13/19 16:00 93 Nasal Cannula 2.00 03/13/19 15:22 89 Nasal Cannula 2.00 03/13/19 12:00 99.6 95 22 164/76 (105) 91 Nasal Cannula 2.00 03/13/19 12:00 93 Nasal Cannula 2.00 03/13/19 11:14 91 Nasal Cannula 2.00 03/13/19 08:00 93 Nasal Cannula 2.00 03/13/19 08:00 115 27 155/85 (108) 91 Nasal Cannula 2.00 03/13/19 07:23 87 03/13/19 07:00 98.2 105 15 155/85 (108) 92 Nasal Cannula 2.00 03/13/19 06:26 94 Nasal Cannula 2.00 03/13/19 06:25 95 13 106/72 (83) 94 Nasal Cannula 2.00 I & O 03/14/19 07:00 Intake Total 550 ml Output Total 550 ml Balance 0 ml Height & Weight Height: 5'10.00" Weight: 235lbs. 8.0oz. 106.672544rt; 28.7 BMI Method:Stated General Appearance: No Apparent Distress, WD/WN HEENT: Normal ENT Inspection Neck: Full Range of Motion, Normal Inspection, Non Tender Respiratory: Chest Non Tender, Lungs Clear, No Accessory Muscle Use, No Respiratory Distress, Decreased Breath Sounds Cardiovascular: Regular Rate, Rhythm, No Murmur Capillary Refill: Less Than 3 Seconds Gastrointestinal: non tender, soft Extremity: Normal Capillary Refill, Normal Inspection, No Calf Tenderness, No Pedal Edema Neurologic/Psychiatric: Alert, Disoriented, Other (lethargic) Skin: Normal Color, Warm/Dry Lymphatic: No Adenopathy Results Lab Laboratory Tests 03/13/19 03:00 03/14/19 03:09 Assessment/Plan Assessment/Plan Acute on chronic respiratory failure with copious amounts of sputum -S/P bronchoscopy with EBUS -s/p ventilator therapy - PNA with Bacteremia with Corynebacterium and Moraxella in sputum -PNA was present on admission -Continue Merrem Mediastinal lymphadenopathy s/p bronchoscopy with EBUS COPDAE -Duoneb -Solumedrol - decrease to 40Q12 KEYONA EVANS DO March 14, 2019 05:20
[2019-03-14 08:00] VITALS: BP 160/74
[2019-03-14] MEDS: PANTOPRAZOLE 40 MG (PROTONIX) VIAL IV SCH (09:42)
[2019-03-14 12:00] VITALS: BP 146/67
--- NOTE | 2019-03-14 13:03 | Progress Note-Hospitalist ---
Subjective HPI/CC On Admission Date Seen by Provider: March 14, 2019 Time Seen by Provider: 13:15 Subjective/Events-last exam Patient was sleeping during exam RN reports cough is still productive RN has no concerns Review of Systems Pulmonary: Cough Focused Exam Lactate Level Objective Exam Vital Signs Vital Signs Date Time Temp Pulse Resp B/P (MAP) Pulse Ox O2 Delivery O2 Flow Rate FiO2 03/15/19 14:33 93 Nasal Cannula 2.00 03/15/19 08:00 98.5 74 20 157/77 (103) 03/12/19 08:31 30 Capillary Refill : Less Than 3 SecondsLess Than 3 Seconds General Appearance: No Apparent Distress, WD/WN, Chronically ill HEENT: Normal ENT Inspection Neck: Full Range of Motion, Normal Inspection, Non Tender Respiratory: Chest Non Tender, Lungs Clear, No Accessory Muscle Use, No Respiratory Distress, Decreased Breath Sounds Cardiovascular: Regular Rate, Rhythm, No Murmur Gastrointestinal: Normal Bowel Sounds, Non Tender, Soft Extremity: Normal Capillary Refill, Normal Inspection, No Calf Tenderness, No Pedal Edema Neurologic/Psychiatric: Disoriented, Other (sleeping) Skin: Normal Color, Warm/Dry Lymphatic: No Adenopathy Results/Procedures Lab Patient resulted labs reviewed. Assessment/Plan Assessment and Plan Assess & Plan/Chief Complaint Assessment: Acute on chronic respiratory failure s/p Bronch Pneumonia with bacteremia Mediastinal lymphadenopathy AECOPD Severe debility requiring NHP permanently Plan: IV abx IV steroids Critical Care Critically Ill Patient Clinical Quality Measures DVT/VTE Risk/Contraindication: Risk Factor Score Per Nursin RFS Level Per Nursing on Admit: 4+=Very High CHRIS EMERSON DO March 14, 2019 13:03
[2019-03-14 16:10] VITALS: BP 175/75
[2019-03-14] MEDS: ENOXAPARIN 40 MG/0.4 ML (LOVENOX) SYR SC SCH (17:18)
[2019-03-14 20:14] VITALS: BP 153/70
[2019-03-14 23:55] VITALS: BP 154/76
[2019-03-15] MEDS: RT-ALBUTEROL/IPRATROPIUM 3 ML (DUONEB) VIAL INH SCH ×6 (02:16→22:27)
[2019-03-15] MEDS: MEROPENEM 500 MG/SWFI 10 ML IV PUSH IV SCH ×8 (04:49→22:08)
[2019-03-15 08:00] VITALS: BP 157/77
[2019-03-15] MEDS: methylPREDNISolone 125 MG (Solu-MEDROL) VIAL IVP SCH ×2 (09:14→22:08)
[2019-03-15] MEDS: PANTOPRAZOLE 40 MG (PROTONIX) VIAL IV SCH (09:14)
--- NOTE | 2019-03-15 11:29 | Progress Note-Hospitalist ---
Subjective HPI/CC On Admission Date Seen by Provider: March 15, 2019 Time Seen by Provider: 12:15 Subjective/Events-last exam Patient feels much better and is up in chair and just ate lunch Cough is still productive Maintained on O2 and Nebs Overall appears much improved Denies pain BM+ Review of Systems Pulmonary: Dyspnea, Cough Objective Exam Vital Signs Vital Signs Date Time Temp Pulse Resp B/P (MAP) Pulse Ox O2 Delivery O2 Flow Rate FiO2 03/15/19 14:33 93 Nasal Cannula 2.00 03/15/19 08:00 98.5 74 20 157/77 (103) 03/12/19 08:31 30 Capillary Refill : Less Than 3 SecondsLess Than 3 Seconds General Appearance: No Apparent Distress, WD/WN HEENT: Normal ENT Inspection Neck: Full Range of Motion, Normal Inspection, Non Tender Respiratory: Chest Non Tender, Lungs Clear, No Accessory Muscle Use, No Respiratory Distress, Decreased Breath Sounds Cardiovascular: Regular Rate, Rhythm, No Murmur Gastrointestinal: Normal Bowel Sounds, Non Tender, Soft Extremity: Normal Capillary Refill, Normal Inspection, No Calf Tenderness, No Pedal Edema Neurologic/Psychiatric: Alert, Oriented x3, No Motor/Sensory Deficits, Normal Mood/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 Assessment/Plan Assessment and Plan Assess & Plan/Chief Complaint Assessment: Acute on chronic respiratory failure s/p Bronch Pneumonia with bacteremia Mediastinal lymphadenopathy AECOPD Severe debility requiring NHP permanently Plan: IV abx IV steroids Critical Care Critically Ill Patient Diagnosis/Problems Diagnosis/Problems (1) Acute and chronic respiratory failure Status: Acute (2) Poor prognosis Status: Acute (3) Bilateral pneumonia Status: Acute (4) COPD with acute exacerbation Status: Acute Clinical Quality Measures DVT/VTE Risk/Contraindication: Risk Factor Score Per Nursin RFS Level Per Nursing on Admit: 4+=Very High CHRIS EMERSON DO March 15, 2019 11:29
[2019-03-15 15:58] VITALS: BP 164/88
[2019-03-15] MEDS: ENOXAPARIN 40 MG/0.4 ML (LOVENOX) SYR SC SCH (16:45)
[2019-03-15 19:03] VITALS: BP 176/82
[2019-03-16 00:29] VITALS: BP 159/82
[2019-03-16] MEDS: RT-ALBUTEROL/IPRATROPIUM 3 ML (DUONEB) VIAL INH SCH ×6 (02:26→22:56)
[2019-03-16] MEDS: MEROPENEM 500 MG/SWFI 10 ML IV PUSH IV SCH ×2 (04:10)
[2019-03-16 04:22] VITALS: BP 157/79
[2019-03-16 08:00] VITALS: BP 158/81
--- NOTE | 2019-03-16 08:42 | Pulmonary Progress Note ---
Subjective Date Seen by a Provider: March 15, 2019 (Late note for 03/15 today is 03/16/19) Time Seen by a Provider: 08:40 Subjective/Events-last exam Pt is doing better. Sepsis Event Evaluation Height, Weight, BMI Height: 5'10.00" Weight: 221lbs. 1.0oz. 100.816057xn; 28.7 BMI Method:Stated Exam Exam Vital Signs Date Time Temp Pulse Resp B/P (MAP) Pulse Ox O2 Delivery O2 Flow Rate FiO2 03/16/19 06:32 94 Nasal Cannula 3.00 03/16/19 04:22 98.1 83 19 157/79 (105) 93 Nasal Cannula 2.00 03/16/19 02:26 92 Nasal Cannula 3.00 03/16/19 00:29 98.3 74 23 159/82 (107) 93 Nasal Cannula 2.00 03/15/19 22:27 95 Nasal Cannula 2.00 03/15/19 20:00 Nasal Cannula 2.00 03/15/19 19:03 98.2 84 20 176/82 (113) 91 Nasal Cannula 2.00 03/15/19 18:42 92 Nasal Cannula 2.00 03/15/19 15:58 97.7 69 16 164/88 (113) 93 Nasal Cannula 2.00 03/15/19 14:33 93 Nasal Cannula 2.00 03/15/19 10:46 91 Nasal Cannula 2.00 I & O 03/16/19 07:00 Intake Total 1960 ml Output Total 3850 ml Balance -1890 ml Height & Weight Height: 5'10.00" Weight: 221lbs. 1.0oz. 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
--- NOTE | 2019-03-16 08:46 | Pulmonary Progress Note ---
Subjective Date Seen by a Provider: March 16, 2019 Time Seen by a Provider: 08:42 Subjective/Events-last exam Pt is asking to go home. He is doing better. Sepsis Event Evaluation Height, Weight, BMI Height: 5'10.00" Weight: 221lbs. 1.0oz. 100.150219rq; 28.7 BMI Method:Stated Exam Exam Vital Signs Date Time Temp Pulse Resp B/P (MAP) Pulse Ox O2 Delivery O2 Flow Rate FiO2 03/16/19 06:32 94 Nasal Cannula 3.00 03/16/19 04:22 98.1 83 19 157/79 (105) 93 Nasal Cannula 2.00 03/16/19 02:26 92 Nasal Cannula 3.00 03/16/19 00:29 98.3 74 23 159/82 (107) 93 Nasal Cannula 2.00 03/15/19 22:27 95 Nasal Cannula 2.00 03/15/19 20:00 Nasal Cannula 2.00 03/15/19 19:03 98.2 84 20 176/82 (113) 91 Nasal Cannula 2.00 03/15/19 18:42 92 Nasal Cannula 2.00 03/15/19 15:58 97.7 69 16 164/88 (113) 93 Nasal Cannula 2.00 03/15/19 14:33 93 Nasal Cannula 2.00 03/15/19 10:46 91 Nasal Cannula 2.00 I & O 03/16/19 07:00 Intake Total 1960 ml Output Total 3850 ml Balance -1890 ml Height & Weight Height: 5'10.00" Weight: 221lbs. 1.0oz. 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
[2019-03-16] MEDS: PANTOPRAZOLE 40 MG (PROTONIX) VIAL IV SCH (09:09)
--- NOTE | 2019-03-16 12:27 | Progress Note-Hospitalist ---
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 Review of Systems Pulmonary: Cough Objective Exam Vital Signs Vital Signs Date Time Temp Pulse Resp B/P (MAP) Pulse Ox O2 Delivery O2 Flow Rate FiO2 03/16/19 10:16 94 Nasal Cannula 3.00 03/16/19 08:00 98.4 81 22 158/81 (106) 03/12/19 08:31 30 Capillary Refill : Less Than 3 SecondsLess Than 3 Seconds General Appearance: No Apparent Distress, WD/WN HEENT: Normal ENT Inspection Neck: Full Range of Motion, Normal Inspection, Non Tender Respiratory: Chest Non Tender, No Accessory Muscle Use, No Respiratory Distress, Decreased Breath Sounds Cardiovascular: Regular Rate, Rhythm, No Murmur Gastrointestinal: Normal Bowel Sounds, Non Tender, Soft Extremity: Normal Capillary Refill, Normal Inspection, No Calf Tenderness, No Pedal Edema Neurologic/Psychiatric: Alert, Oriented x3, No Motor/Sensory Deficits, Normal 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 Assessment/Plan Assessment and Plan Assess & Plan/Chief Complaint Assessment: Acute on chronic respiratory failure now resolved s/p Bronch Pneumonia with bacteremia Mediastinal lymphadenopathy AECOPD Severe debility requiring NHP permanently Plan: IV abx IV steroids DC tomorrow back to MD Critical Care Critically Ill Patient Diagnosis/Problems Diagnosis/Problems (1) Acute and chronic respiratory failure Status: Acute (2) Poor prognosis Status: Acute (3) Bilateral pneumonia Status: Acute (4) COPD with acute exacerbation Status: Acute Clinical Quality Measures DVT/VTE Risk/Contraindication: Risk Factor Score Per Nursin RFS Level Per Nursing on Admit: 4+=Very High CHRIS EMERSON DO March 16, 2019 12:27
[2019-03-16 12:55] LABS: PARAINFLU 1 PCR Not Detected (Not Detected); RSV PCR Not Detected (Not Detected)
[2019-03-16 16:00] VITALS: BP 136/82
[2019-03-16] MEDS: ENOXAPARIN 40 MG/0.4 ML (LOVENOX) SYR SC SCH (16:41)
[2019-03-16] MEDS: AUGMENTIN 875 MG TAB (AMOXICILLIN/CLAVULANATE) PO SCH (16:41)
[2019-03-16 23:44] VITALS: BP 162/84
[2019-03-17] MEDS: RT-ALBUTEROL/IPRATROPIUM 3 ML (DUONEB) VIAL INH SCH ×4 (03:44→15:41)
[2019-03-17 05:59] LABS: BASOPHILS % (AUTO) 0 % (0-10); EOSINOPHILS # (AUTO) 0.1 10^3/uL (0.0-0.3); EOSINOPHILS % (AUTO) 1 % (0-10); HEMATOCRIT 48 % (40-54); HEMOGLOBIN 15.7 G/DL (13.3-17.7); LYMPHOCYTES # (AUTO) 1.9 X 10^3 (1.0-4.0); LYMPHOCYTES % (AUTO) 24 % (12-44); MEAN CORPUSCULAR HEMOGLOBIN 27 PG (25-34); MEAN CORPUSCULAR HGB CONC 33 G/DL (32-36); MEAN CORPUSCULAR VOLUME 82 FL (80-99); MEAN PLATELET VOLUME 11.7 FL (7.4-10.4); MONOCYTES % (AUTO) 12 % (0-12); NEUTROPHILS % (AUTO) 63 % (42-75); PLATELET COUNT 95 10^3/uL (130-400); RED CELL DISTRIBUTION WIDTH 18.6 % (10.0-14.5); WHITE BLOOD COUNT 7.9 10^3/uL (4.3-11.0)
[2019-03-17] MEDS: AUGMENTIN 875 MG TAB (AMOXICILLIN/CLAVULANATE) PO SCH (06:08)
[2019-03-17 06:24] LABS: ALANINE AMINOTRANSFERASE 31 U/L (0-55); ALBUMIN 3.4 GM/DL (3.2-4.5); ALKALINE PHOSPHATASE 42 U/L (40-136); BILIRUBIN,TOTAL 0.9 MG/DL (0.1-1.0); BUN/CREATININE RATIO 30; CALCIUM 8.5 MG/DL (8.5-10.1); CARBON DIOXIDE 28 MMOL/L (21-32); CHLORIDE 101 MMOL/L (98-107); CREATININE SERUM 0.77 MG/DL (0.60-1.30); GFR ESTIMATED > 60; GLUCOSE 80 MG/DL (70-105); POTASSIUM 3.7 MMOL/L (3.6-5.0); SODIUM 139 MMOL/L (135-145)
--- NOTE | 2019-03-17 07:34 | Progress Note (SOAP) ---
Subjective Time Seen by a Provider: 07:31 Subjective/Events-last exam Patient feeling good Patient breathing better. Patient does not have his oxygen on this morning. Patient told again about smoking sensation area Patient states he will not smoke. Patient has history of noncompliance Objective Exam Vital Signs Date Time Temp Pulse Resp B/P (MAP) Pulse Ox O2 Delivery O2 Flow Rate FiO2 03/17/19 03:44 92 Nasal Cannula 3.00 03/16/19 23:44 98.9 87 20 162/84 (110) 92 Nasal Cannula 3.00 03/16/19 22:56 94 Nasal Cannula 3.00 03/16/19 20:00 Nasal Cannula 2.00 03/16/19 19:27 92 Nasal Cannula 3.00 03/16/19 16:00 99.3 88 20 136/82 (100) 94 Nasal Cannula 3.00 03/16/19 14:34 94 Nasal Cannula 3.00 03/16/19 10:16 94 Nasal Cannula 3.00 03/16/19 08:00 90 Nasal Cannula 2.00 03/16/19 08:00 98.4 81 22 158/81 (106) 94 Nasal Cannula 2.00 I & O 03/17/19 07:00 Intake Total 3450 ml Output Total 6100 ml Balance -2650 ml Capillary Refill : Less Than 3 SecondsLess Than 3 Seconds General Appearance: No Apparent Distress, WD/WN HEENT: Normal ENT Inspection Neck: Full Range of Motion, Normal Inspection Respiratory: No Accessory Muscle Use, No Respiratory Distress, Decreased Breath Sounds Cardiovascular: Regular Rate, Rhythm, No Murmur Gastrointestinal: non tender, soft Results Lab Laboratory Tests 03/17/19 05:10: White Blood Count 7.9, Red Blood Count 5.90H, Hemoglobin 15.7, Hematocrit 48, Mean Corpuscular Volume 82, Mean Corpuscular Hemoglobin 27, Mean Corpuscular Hemoglobin Concent 33, Red Cell Distribution Width 18.6H, Platelet Count 95L, Mean Platelet Volume 11.7H, Neutrophils (%) (Auto) 63, Lymphocytes (%) (Auto) 24, Monocytes (%) (Auto) 12, Eosinophils (%) (Auto) 1, Basophils (%) (Auto) 0, Neutrophils # (Auto) 5.0, Lymphocytes # (Auto) 1.9, Monocytes # (Auto) 1.0, Eosinophils # (Auto) 0.1, Basophils # (Auto) 0.0, Sodium Level 139, Potassium Level 3.7, Chloride Level 101, Carbon Dioxide Level 28, Anion Gap 10, Blood Urea Nitrogen 23H, Creatinine 0.77, Estimat Glomerular Filtration Rate > 60, BUN/Creatinine Ratio 30, Glucose Level 80, Calcium Level 8.5, Corrected Calcium 9.0, Total Bilirubin 0.9, Aspartate Amino Transf (AST/SGOT) 25, Alanine Aminotransferase (ALT/SGPT) 31, Alkaline Phosphatase 42, Total Protein 6.0L, Albumin 3.4 Microbiology 03/10/19 Blood Culture - Final, Complete No growth 03/11/19 Mycobacterial Culture - Preliminary, Resulted Culture In Progress See Comments Assessment/Plan Assessment/Plan Assess & Plan/Chief Complaint Acute respiratory failure. Acute on chronic respiratory failure. COPD with acute exacerbation. Hypoxia. Tobaccoism. Noncompliance history. . 03/12/19. Acute respiratory failure. Acute and chronic respiratory failure. COPD with acute exacerbation. Hypoxia. Tobaccoism. Noncompliance.. Elevated lactic acid now normal. . 03/13/19. Acute respiratory failure resolved. Acute and chronic respiratory failure. COPD with acute exacerbation. Hypoxia. Tobaccoism. Noncompliant. Patient doing better to be transferred to medical floor today. . 03/17/19. Acute and chronic respiratory failure. COPD with acute exacerbation. Pneumonia. Tobaccoism. Noncompliant. Patient to be discharged today Clinical Quality Measures Admission Status Admission Dx Acute and chronic respiratory failure. Metabolic lactic acidosis. Hypotension. Coronary edema. COPD with acute exacerbation DVT/VTE Risk/Contraindication: Risk Factor Score Per Nursin RFS Level Per Nursing on Admit: 4+=Very High ART CASANOVA DO March 17, 2019 07:33
--- NOTE | 2019-03-17 07:37 | Discharge Inst-Skilled Nursing ---
Discharge Inst-Skilled NF Patient Instructions Patient Problems: COPD. Tobaccoism. Consult/Follow Up/Orders Follow Up Appt.: 2 office in one week Skilled NF Admit to: [facility] Certification (SNF) I certify that SNF services are required to be given on an inpatient basis because of the above named patient's need for intermediate care on a continuing basis for the conditions(s) for which he/she was receiving inpatient hospital services prior to his/her transfer to the SNF. Oxygen Delivery Method: Nasal Cannula New & Resume Previous Orders Abelino Casanova March 17, 2019 07:36 ABELINO CASANOVA DO March 17, 2019 07:37
[2019-03-17 08:00] VITALS: BP 153/75
[2019-03-17] MEDS: PANTOPRAZOLE 40 MG (PROTONIX) VIAL IV SCH (08:40)
--- NOTE | 2019-03-17 09:44 | NUR ---
CM/SS discharge information faxed to [facility]. [facility] had called already and is waiting to hear back on a cloth picker time.
--- NOTE | 2019-03-17 10:55 | NUR ---
CM/SS called and left a message with call back info for [facility], after they had not returned RNing call this am for a hand picker time.
--- NOTE | 2019-03-17 11:52 | NUR ---
CM/SS received call back from [facility] they will transport this day at between 1600 - 1630.
--- NOTE | 2019-03-17 13:23 | Pulmonary Progress Note ---
Subjective Time Seen by a Provider: 13:19 Subjective/Events-last exam Pt is doing better Sepsis Event Evaluation Height, Weight, BMI Height: 5'10.00" Weight: 211lbs. 11.2oz. 96.274931cv; 28.7 BMI Method:Stated Exam Exam Vital Signs Date Time Temp Pulse Resp B/P (MAP) Pulse Ox O2 Delivery O2 Flow Rate FiO2 03/17/19 11:38 92 Nasal Cannula 3.00 03/17/19 08:21 92 Nasal Cannula 3.00 03/17/19 08:00 98.5 57 22 153/75 (101) 95 Nasal Cannula 2.00 03/17/19 08:00 Nasal Cannula 2.00 03/17/19 03:44 92 Nasal Cannula 3.00 03/16/19 23:44 98.9 87 20 162/84 (110) 92 Nasal Cannula 3.00 03/16/19 22:56 94 Nasal Cannula 3.00 03/16/19 20:00 Nasal Cannula 2.00 03/16/19 19:27 92 Nasal Cannula 3.00 03/16/19 16:00 99.3 88 20 136/82 (100) 94 Nasal Cannula 3.00 03/16/19 14:34 94 Nasal Cannula 3.00 I & O 03/17/19 07:00 Intake Total 3450 ml Output Total 6100 ml Balance -2650 ml Height & Weight Height: 5'10.00" Weight: 211lbs. 11.2oz. 96.740416pt; 28.7 BMI Method:Stated General Appearance: No Apparent Distress, WD/WN HEENT: Normal ENT Inspection Neck: Full Range of Motion, Normal Inspection Respiratory: No Accessory Muscle Use, No Respiratory Distress, Decreased Breath Sounds Cardiovascular: Regular Rate, Rhythm, No Murmur Capillary Refill: Less Than 3 Seconds Gastrointestinal: non tender, soft Extremity: Normal Capillary Refill, Normal Inspection, No Calf Tenderness, No Pedal Edema Neurologic/Psychiatric: Alert, Oriented x3, No Motor/Sensory Deficits, Normal Mood/Affect, search developer II-XII Norm as Tested Skin: Normal Color, Warm/Dry Lymphatic: No Adenopathy Results Lab Laboratory Tests 03/17/19 05:10 Assessment/Plan Assessment/Plan Acute on chronic respiratory failure with copious amounts of sputum - improving -S/P bronchoscopy with EBUS -s/p ventilator therapy - PNA with Bacteremia with Corynebacterium and Moraxella in sputum -PNA was present on admission -Change Merrem to Augmentin x 5 more days then D/C Mediastinal lymphadenopathy s/p bronchoscopy with EBUS COPDAE -KEYONA Malik DO March 17, 2019 13:23
--- NOTE | 2019-03-18 08:03 | Discharge Summary ---
Diagnosis/Chief Complaint Date of Admission March 09, 2019 at 14:57 Date of Discharge March 17, 2019 at 16:20 Discharge Date: March 17, 2019 Discharge Time: 08:00 Discharge Diagnosis Unit chronic respiratory failure. Chronic obstructive pulmonary disease with acute exacerbation. Cocaine dependence. GERD. Hypotension. Nicotine dependence. Noncompliance. Obesity. Sputum M catarrhalis Reason Hospital Visit Patient resident of [facility]. Patient became dyspneic and hypoxic. Pulse ox 60. Patient lethargic and poorly responsive. Patient by ambulance brought out to emergency room. Patient intubated and admitted to ICU. Patient has history of noncompliance Discharge Summary Procedures Bronchoscopy Consultations Pulmonology Discharge Physical Examination Allergies: Coded Allergies: No Known Drug Allergies (Unverified , 03/09/19) Vitals & I&Os Vital Signs Date Time Temp Pulse Resp B/P (MAP) Pulse Ox O2 Delivery O2 Flow Rate FiO2 03/17/19 17:13 03/17/19 15:44 95 Nasal Cannula 3.00 03/17/19 08:00 98.5 57 22 03/12/19 08:31 30 Hospital Course Patient in hospital did good. Patient put on ventilator. Serum lactic acid elevated. Patient sent back to [facility] Labs (last 24 hrs) Laboratory Tests 03/09/19 12:45: White Blood Count 8.6, Red Blood Count 5.08, Hemoglobin 14.1, Hematocrit 45, Mean Corpuscular Volume 89, Mean Corpuscular Hemoglobin 28, Mean Corpuscular Hemoglobin Concent 31L, Red Cell Distribution Width 20.2H, Platelet Count 163, Mean Platelet Volume , Neutrophils (%) (Auto) 63, Lymphocytes (%) (Auto) 22, Monocytes (%) (Auto) 11, Eosinophils (%) (Auto) 4, Basophils (%) (Auto) 0, Neutrophils # (Auto) 5.4, Lymphocytes # (Auto) 1.9, Monocytes # (Auto) 1.0, Eo sinophils # (Auto) 0.4H, Basophils # (Auto) 0.0, Sodium Level 140, Potassium [place] 5.4H, Chloride Level 93L, Carbon Dioxide Level 34H, Anion Gap 13, Blood Urea Nitrogen 12, Creatinine 0.94, Estimat Glomerular Filtration Rate > 60, BUN/Creatinine Ratio 13, Glucose Level 82, Lactic Acid Level 0.94, Calcium Level 8.8, Corrected Calcium 9.1, Total Bilirubin 0.6, Aspartate Amino Transf (AST/SGOT) 28, Alanine Aminotransferase (ALT/SGPT) 14, Alkaline Phosphatase 59, B-Type Natriuretic Peptide 916.9H, Total Protein 7.3, Albumin 3.6 03/09/19 12:52: Blood Gas Puncture Site RIGHT RADIAL, Blood Gas Patient Temperature 97.3, Arterial Blood pH 7.31*L, Arterial Blood Partial Pressure CO2 85*H, Arterial Blood Partial Pressure O2 146H, Arterial Blood HCO3 42*H, Arterial Blood Total CO2 44.7H, Arterial Blood Oxygen Saturation 100, Arterial Blood Base Excess 15.1H, Jeff Test YES-POS, Blood Gas Ventilator Setting NO, Blood Gas Inspired Oxygen 70% BIPAP 03/09/19 14:04: Blood Gas Puncture Site RIGHT RADIAL, Blood Gas Patient Temperature 97.1, Arterial Blood pH 7.33*L, Arterial Blood Partial Pressure CO2 82*H, Arterial Blood Partial Pressure O2 100H, Arterial Blood HCO3 43*H, Arterial Blood Total CO2 45.2H, Arterial Blood Oxygen Saturation 98, Arterial Blood Base Excess 15.9H , Jeff Test YES-POS, Blood Gas Ventilator Setting NO, Blood Gas Inspired Oxygen 50% Fio2 03/09/19 14:57: Lab Scanned Report Referred Lab Report 03/10/19 03:15: White Blood Count 6.8, Red Blood Count 5.36, Hemoglobin 14.6, Hematocrit 47, Mean Corpuscular Volume 88, Mean Corpuscular Hemoglobin 27, Mean Corpuscular Hemoglobin Concent 31L, Red Cell Distribution Width 18.7H, Platelet Count 139, Mean Platelet Volume 11.1H, Neutrophils (%) (Auto) 88H, Lymphocytes (%) (Auto) 10L, Monocytes (%) (Auto) 3, Eosinophils (%) (Auto) 0, Basophils (%) (Auto) 0, Neutrophils # (Auto) 5.9, Lymphocytes # (Auto) 0.7L, Monocytes # (Auto) 0.2, Eosinophils # (Auto) 0.0, Basophils # (Auto) 0.0, Sodium Level 143, Potassium Level 4.1, Chloride Level 93L, Carbon Dioxide Level 30, Anion Gap 20H, Blood Urea Nitrogen 14, Creatinine 1.06, Estimat Glomerular Filtration Rate > 60, BUN/Creatinine Ratio 13, Glucose Level 146H, Lactic Acid Level 6.13*H, Calcium Level 9.1, Corrected Calcium 9.7, Phosphorus Level 3.4, Magnesium Level 1.8, Total Bilirubin 1.0, Aspartate Amino Transf (AST/SGOT) 12, Alanine Vitale otransferase (ALT/SGPT) 7, Alkaline Phosphatase 57, Troponin I < 0.028, B-Type Natriuretic Peptide 534.2H, Total Protein 6.3L, Albumin 3.3 03/10/19 03:36: Blood Gas Puncture Site RIGHT RADIAL, Blood Gas Patient Temperature 96.2, Arterial Blood pH 7.45H, Arterial Blood Partial Pressure CO2 50H, Arterial Blood Partial Pressure O2 70L, Arterial Blood HCO3 35H, Arterial Blood Total CO2 36.5H , Arterial Blood Oxygen Saturation 94, Arterial Blood Base Excess 10.1H, Jeff Test YES-POS, Blood Gas Ventilator Setting YES, Blood Gas Inspired Oxygen 40% 03/10/19 04:40: Urine Color YELLOW, Urine Clarity CLEAR, Urine pH 8, Urine Specific [place]y 1.010L, Urine Protein NEGATIVE, Urine Glucose (UA) NEGATIVE, Urine Ketones NEGATIVE, Urine Nitrite NEGATIVE, Urine Bilirubin NEGATIVE, Urine Urobilinogen NORMAL, Urine Leukocyte Esterase 1+H, Urine RBC (Auto) 4+H, Urine RBC 10-25H, Urine WBC RARE, Urine Squamous Epithelial Cells 0-2, Urine Crystals NONE, Urine Bacteria NEGATIVE, Urine Casts NONE, Urine Mucus SMALLH, Urine Culture Indicated NO 03/10/19 05:30: Lactic Acid Level 9.50*H 03/10/19 11:24: Glucometer 144H 03/10/19 12:04: Troponin I 0.030H 03/10/19 12:56: Lactic Acid Level 8.28*H 03/10/19 15:50: Glucometer 142H 03/10/19 18:52: Troponin I < 0.028 03/10/19 19:51: Lactic Acid Level 4.12*H 03/10/19 22:26: Glucometer 151H 03/11/19 03:55: Lactic Acid Level 2.63*H, White Blood Count 17.2H, Red Blood Count 5.30, Hemoglobin 14.4, Hematocrit 44, Mean Corpuscular Volume 84, Mean Corpuscular Hemoglobin 27, Mean Corpuscular Hemoglobin Concent 32, Red Cell Distribution Width 17.9H, Platelet Count 139, Mean Platelet Volume 10.6H, Neutrophils (%) (Auto) 94H, Lymphocytes (%) (Auto) 3L, Monocytes (%) (Auto) 3, Eosinophils (%) (Auto) 0, Basophils (%) (Auto) 0, Neutrophils # (Auto) 16.2H, Lymphocytes # (Auto) 0.5L, Monocytes # (Auto) 0.5, Eosinophils # (Auto) 0.0, Basophils # (Auto) 0.0, Neutrophils % (Manual) 85, Lymphocytes % (Manual) 4, Monocytes % (Manual) 6, Band Neutrophils 5, Blood Morphology Comment NORMAL, Sodium Level 137, Potassium Level 4.5, Chloride Level 94L, Carbon Dioxide Level 29, Anion Gap 14, Blood Urea Nitrogen 19H, Creatinine 0.93, Estimat Glomerular Filtration Rate > 60, BUN/Creatinine Ratio 20, Glucose Level 173H, Calcium Level 8.8, Phosphorus Level 2.9, Magnesium Level 1.5L 03/11/19 04:15: Blood Gas Puncture Site RIGHT RADIAL, Blood Gas Patient Temperature 97.6, Arterial Blood pH 7.49H, Arterial Blood Partial Pressure CO2 45, Arterial Blood Partial Pressure O2 74L, Arterial Blood HCO3 34H, Arterial Blood Total CO2 35.8H , Arterial Blood Oxygen Saturation 96, Arterial Blood Base Excess 10.2H, Jeff Test YES-POS, Blood Gas Ventilator Setting YES, Blood Gas Inspired Oxygen 35% 03/11/19 05:30: Specimen Type (Other Body Source) Bron Lavage RLL, Adenovirus (PCR) Not Detected, Cytomegalovirus DNA Quant (PCR) <200, CMV DNA Quant PCR log IU/mL <2.30, Human Metapneumovirus (PCR) Not Detected, Influenza Virus Type A (PCR) Not Detected, Influenza Virus Type B (PCR) Not Detected, Parainfluenza Type 1 (PCR) Not Detected, Parainfluenza Type 2 (PCR) Not Detected, Parainfluenza Type 3 (PCR) Not Detected, Respiratory Syncytial Virus (PCR) Not Detected 03/11/19 06:13: Glucometer 168H 03/11/19 12:24: Glucometer 154H 03/11/19 14:41: Blood Gas Puncture Site L RAD, Blood Gas Patient Temperature 98, Arterial Blood pH 7.43, Arterial Blood Partial Pressure CO2 53H, Arterial Blood Partial Pressure O2 78L, Arterial Blood HCO3 34H, Arterial Blood Total CO2 35.7H, Arter ial Blood Oxygen Saturation 96, Arterial Blood Base Excess 9.3H, Jeff Test YES- POS, Blood Gas Ventilator Setting YES, Blood Gas Inspired Oxygen 35% 03/11/19 18:05: Vancomycin Level Trough 24.0H 03/11/19 18:18: Glucometer 171H 03/11/19 22:58: Glucometer 135H 03/12/19 03:18: White Blood Count 17.6H, Red Blood Count 5.38, Hemoglobin 14.6, Hematocrit 45, Mean Corpuscular Volume 83, Mean Corpuscular Hemoglobin 27, Mean Corpuscular Hemoglobin Concent 33, Red Cell Distribution Width 18.0H, Platelet Count 138, Mean Platelet Volume 10.7H, Neutrophils (%) (Auto) 95H, Lymphocytes (%) (Auto) 2L, Monocytes (%) (Auto) 2, Eosinophils (%) (Auto) 0, Basophils (%) (Auto) 0, Neutrophils # (Auto) 16.8H, Lymphocytes # (Auto) 0.4L, Monocytes # (Auto) 0.4, Eosinophils # (Auto) 0.0, Basophils # (Auto) 0.0, Sodium Level 135, Potassium Level 4.6, Chloride Level 97L, Carbon Dioxide Level 26, Anion Gap 12, Blood Urea Nitrogen 18, Creatinine 0.81, Estimat Glomerular Filtration Rate > 60, BUN/Creatinine Ratio 22, Glucose Level 150H, Lactic Acid Level 0.89, Calcium Level 8.3L, Phosphorus Level 3.2, Magnesium Level 1.9 03/12/19 03:25: Blood Gas Puncture Site L RAD, Blood Gas Patient Temperature 99.5, Arterial Blood pH 7.45H, Arterial Blood Partial Pressure CO2 50H, Arterial Blood Partial Pressure O2 72L, Arterial Blood HCO3 34H, Arterial Blood Total CO2 35.1H, Arterial Blood Oxygen Saturation 94, Arterial Blood Base Excess 9.3H, Jeff Test YES-POS, Blood Gas Ventilator Setting YES, Blood Gas Inspired Oxygen 35% 03/12/19 06:05: Vancomycin Level Trough 18.2 03/12/19 08:29: Blood Gas Puncture Site RT RADIAL, Blood Gas Patient Temperature 98, Arterial Blood pH 7.47H, Arterial Blood Partial Pressure CO2 49H, Arterial Blood Partial Pressure O2 61L, Arterial Blood HCO3 35H, Arterial Blood Total CO2 36.7H, Arterial Blood Oxygen Saturation 91L, Arterial Blood Base Excess 10.9H, Jeff Test YES-POS, Blood Gas Ventilator Setting YES, Blood Gas Inspired Oxygen 30% 03/12/19 11:39: Glucometer 116H 03/12/19 17:35: Glucometer 115H 03/13/19 03:00: White Blood Count 15.6H, Red Blood Count 5.28, Hemoglobin 14.3, Hematocrit 45, Mean Corpuscular Volume 84, Mean Corpuscular Hemoglobin 27, Mean Corpuscular Hemoglobin Concent 32, Red Cell Distribution Width 18.4H, Platelet Count 133, Mean Platelet Volume 10.2, Neutrophils (%) (Auto) 96H, Lymphocytes (%) (Auto) 3L , Monocytes (%) (Auto) 2, Eosinophils (%) (Auto) 0, Basophils (%) (Auto) 0, Neutrophils # (Auto) 14.9H, Lymphocytes # (Auto) 0.4L, Monocytes # (Auto) 0.2, Eosinophils # (Auto) 0.0, Basophils # (Auto) 0.0, Sodium Level 140, Potassium Level 4.2, Chloride Level 99, Carbon Dioxide Level 31, Anion Gap 10, Blood Urea Nitrogen 20H, Creatinine 0.82, Estimat Glomerular Filtration Rate > 60, BUN/Creatinine Ratio 24, Glucose Level 113H, Calcium Level 8.5, Phosphorus Level 3.5, Magnesium Level 2.0 03/14/19 03:09: White Blood Count 11.2H, Red Blood Count 5.47, Hemoglobin 14.5, Hematocrit 46, Mean Corpuscular Volume 83, Mean Corpuscular Hemoglobin 27, Mean Corpuscular Hemoglobin Concent 32, Red Cell Distribution Width 18.7H, Platelet Count 121L, Mean Platelet Volume 10.7H, Neutrophils (%) (Auto) 86H, Lymphocytes (%) (Auto) 6L, Monocytes (%) (Auto) 8, Eosinophils (%) (Auto) 0, Basophils (%) (Auto) 0, Neutrophils # (Auto) 9.6H, Lymphocytes # (Auto) 0.7L, Monocytes # (Auto) 0.9, Eosinophils # (Auto) 0.0, Basophils # (Auto) 0.0, Sodium Level 142, Potassium Level 4.2, Chloride Level 101, Carbon Dioxide Level 30, Anion Gap 11, Blood Urea Nitrogen 21H, Creatinine 0.74, Estimat Glomerular Filtration Rate > 60, BUN/Creatinine Ratio 28, Glucose Level 103, Calcium Level 8.6, Phosphorus Level 3.5, Magnesium Level 2.3 03/17/19 05:10: White Blood Count 7.9, Red Blood Count 5.90H, Hemoglobin 15.7, Hematocrit 48, Mean Corpuscular Volume 82, Mean Corpuscular Hemoglobin 27, Mean Corpuscular Hemoglobin Concent 33, Red Cell Distribution Width 18.6H, Platelet Count 95L, Mean Platelet Volume 11.7H, Neutrophils (%) (Auto) 63, Lymphocytes (%) (Auto) 24, Monocytes (%) (Auto) 12, Eosinophils (%) (Auto) 1, Basophils (%) (Auto) 0, Neutrophils # (Auto) 5.0, Lymphocytes # (Auto) 1.9, Monocytes # (Auto) 1.0, Eosinophils # (Auto) 0.1, Basophils # (Auto) 0.0, Sodium Level 139, Potassium Level 3.7, Chloride Level 101, Carbon Dioxide Level 28, Anion Gap 10, Blood Urea Nitrogen 23H, Creatinine 0.77, Estimat Glomerular Filtration Rate > 60, BUN/Creatinine Ratio 30, Glucose Level 80, Calcium Level 8.5, Corrected Calcium 9.0, Total Bilirubin 0.9, Aspartate Amino Transf (AST/SGOT) 25, Alanine Aminotransferase (ALT/SGPT) 31, Alkaline Phosphatase 42, Total Protein 6.0L, Albumin 3.4 Microbiology 03/10/19 Blood Culture - Final, Complete No growth 03/11/19 Mycobacterial Culture - Preliminary, Resulted Culture In Progress See Comments Laboratory Tests 03/09/19 12:45 03/10/19 03:15 03/11/19 03:55 03/12/19 03:18 03/13/19 03:00 03/14/19 03:09 03/17/19 05:10 Pending Labs Microbiology Date/Time Source Procedure Growth Status 03/10/19 05:45 Peripheral Right Wrist Blood Culture - Final No growth Complete 03/10/19 05:35 Peripheral Rt Forearm Blood Culture - Final No growth Complete 03/10/19 05:30 Peripheral Rt Hand Blood Culture - Final No growth Complete 03/09/19 12:50 Peripheral Rt Ac Blood Culture - Final Corynebacterium species Complete 03/09/19 12:45 Peripheral Lt Ac Blood Culture - Final No growth Complete 03/11/19 05:30 Bronchial Lavage (Bal) Right Lower Lobe Mycobacterial Culture - Preliminary Culture In Progress See Comments Resulted 03/11/19 05:30 Bronchial Lavage (Bal) Right Lower Lobe Gram Stain - Final Resulted 03/11/19 05:30 Bronchial Culture - Final Moraxella catarrhalis See Comments Resulted 03/11/19 05:30 Bronchial Lavage (Bal) Right Lower Lobe Fungal Culture 1 - Preliminary Resulted 03/09/19 18:00 Nasal MRSA Screen - Final MRSA not isolated Complete 03/09/19 14:52 Sputum Endotracheal Gram Stain - Final Complete 03/09/19 14:52 Sputum Culture - Final Moraxella catarrhalis See Comments Complete Laboratory Tests 03/09/19 12:45: White Blood Count 8.6, Red Blood Count 5.08, Hemoglobin 14.1, Hematocrit 45, Mean Corpuscular Volume 89, Mean Corpuscular Hemoglobin 28, Mean Corpuscular Hemoglobin Concent 31, Red Cell Distribution Width 20.2, Platelet Count 163, Mean Platelet Volume , Neutrophils (%) (Auto) 63, Lymphocytes (%) (Auto) 22, Monocytes (%) (Auto) 11, Eosinophils (%) (Auto) 4, Basophils (%) (Auto) 0, Neutrophils # (Auto) 5.4, Lymphocytes # (Auto) 1.9, Monocytes # (Auto) 1.0, Eosinophils # (Auto) 0.4, Basophils # (Auto) 0.0, Sodium Level 140, Potassium Level 5.4, Chloride Level 93, Carbon Dioxide Level 34, Anion Gap 13, Blood Urea Nitrogen 12, Creatinine 0.94, Estimat Glomerular Filtration Rate > 60, BUN/Crea tinine Ratio 13, Glucose Level 82, Lactic Acid Level 0.94, Calcium Level 8.8, Corrected Calcium 9.1, Total Bilirubin 0.6, Aspartate Amino Transf (AST/SGOT) 28, Alanine Aminotransferase (ALT/SGPT) 14, Alkaline Phosphatase 59, B-Type Natriuretic Peptide 916.9, Total Protein 7.3, Albumin 3.6 03/09/19 12:52: Blood Gas Puncture Site RIGHT RADIAL, Blood Gas Patient Temperature 97.3, Arterial Blood pH 7.31, Arterial Blood Partial Pressure CO2 85, Arterial Blood Partial Pressure O2 146, Arterial Blood HCO3 42, Arterial Blood Total CO2 44.7, Arterial Blood Oxygen Saturation 100, Arterial Blood Base Excess 15.1, Jeff Test YES-POS, Blood Gas Ventilator Setting NO, Blood Gas Inspired Oxygen 70% BIPAP 03/09/19 14:04: Blood Gas Puncture Site RIGHT RADIAL, Blood Gas Patient Temperature 97.1, Arterial Blood pH 7.33, Arterial Blood Partial Pressure CO2 82, Arterial Blood Partial Pressure O2 100, Arterial Blood HCO3 43, Arterial Blood Total CO2 45.2, Arterial Blood Oxygen Saturation 98, Arterial Blood Base Excess 15.9, Jeff Test YES-POS, Blood Gas Ventilator Setting NO, Blood Gas Inspired Oxygen 50% Fio2 03/09/19 14:57: Lab Scanned Report Referred Lab Report 03/10/19 03:15: White Blood Count 6.8, Red Blood Count 5.36, Hemoglobin 14.6, Hematocrit 47, Mean Corpuscular Volume 88, Mean Corpuscular Hemoglobin 27, Mean Corpuscular Hemoglobin Concent 31, Red Cell Distribution Width 18.7, Platelet Count 139, Mean Platelet Volume 11.1, Neutrophils (%) (Auto) 88, Lymphocytes (%) (Auto) 10, Monocytes (%) (Auto) 3, Eosinophils (%) (Auto) 0, Basophils (%) (Auto) 0, Neutrophils # (Auto) 5.9, Lymphocytes # (Auto) 0.7, Monocytes # (Auto) 0.2, Eosinophils # (Auto) 0.0, Basophils # (Auto) 0.0, Sodium Level 143, Potassium Level 4.1, Chloride Level 93, Carbon Dioxide Level 30, Anion Gap 20, Blood Urea Nitrogen 14, Creatinine 1.06, Estimat Glomerular Filtration Rate > 60, BUN/Creatinine Ratio 13, Glucose Level 146, Lactic Acid Level 6.13, Calcium Level 9.1, Corrected Calcium 9.7, Phosphorus Level 3.4, Magnesium Level 1.8, Total Bilirubin 1.0, Aspartate Amino Transf (AST/SGOT) 12, Alanine Aminotransferase (ALT/SGPT) 7, Alkaline Phosphatase 57, Troponin I < 0.028, B- Type Natriuretic Peptide 534.2, Total Protein 6.3, Albumin 3.3 03/10/19 03:36: Blood Gas Puncture Site RIGHT RADIAL, Blood Gas Patient Temperature 96.2, Arterial Blood pH 7.45, Arterial Blood Partial Pressure CO2 50, Arterial Blood Partial Pressure O2 70, Arterial Blood HCO3 35, Arterial Blood Total CO2 36.5, Arterial Blood Oxygen Saturation 94, Arterial Blood Base Excess 10.1, Jeff Test YES-POS, Blood Gas Ventilator Setting YES, Blood Gas Inspired Oxygen 40% 03/10/19 04:40: Urine Color YELLOW, Urine Clarity CLEAR, Urine pH 8, Urine Specific [place] 1.010, Urine Protein NEGATIVE, Urine Glucose (UA) NEGATIVE, Urine Ketones NEGATIVE, Urine Nitrite NEGATIVE, Urine Bilirubin NEGATIVE, Urine Urobilinogen NORMAL, Urine Leukocyte Esterase 1+, Urine RBC (Auto) 4+, Urine RBC 10-25, Urine WBC RARE, Urine Squamous Epithelial Cells 0-2, Urine Crystals NONE, Urine Bacteria NEGATIVE, Urine Casts NONE, Urine Mucus SMALL, Urine Culture Indicated NO 03/10/19 05:30: Lactic Acid Level 9.50 03/10/19 11:24: Glucometer 144 03/10/19 12:04: Troponin I 0.030 03/10/19 12:56: Lactic Acid Level 8.28 03/10/19 15:50: Glucometer 142 03/10/19 18:52: Troponin I < 0.028 03/10/19 19:51: Lactic Acid Level 4.12 03/10/19 22:26: Glucometer 151 03/11/19 03:55: Lactic Acid Level 2.63, White Blood Count 17.2, Red Blood Count 5.30, Hemoglobin 14.4, Hematocrit 44, Mean Corpuscular Volume 84, Mean Corpuscular Hemoglobin 27, Mean Corpuscular Hemoglobin Concent 32, Red Cell Distribution Width 17.9, Platelet Count 139, Mean Platelet Volume 10.6, Neutrophils (%) (Auto) 94, Lymphocytes (%) (Auto) 3, Monocytes (%) (Auto) 3, Eosinophils (%) (Auto) 0, Basophils (%) (Auto) 0, Neutrophils # (Auto) 16.2, Lymphocytes # (Auto) 0.5, Monocytes # (Auto) 0.5, Eosinophils # (Auto) 0.0, Basophils # (Auto) 0.0, Neutrophils % (Manual) 85, Lymphocytes % (Manual) 4, Monocytes % (Manual) 6, Band Neutrophils 5, Blood Morphology Comment NORMAL, Sodium Level 137, Potassium Level 4.5, Chloride Level 94, Carbon Dioxide Level 29, Anion Gap 14, Blood Urea Nitrogen 19, Creatinine 0.93, Estimat Glomerular Filtration Rate > 60, BUN/Creatinine Ratio 20, Glucose Level 173, Calcium Level 8.8, Phosphorus Level 2.9, Magnesium Level 1.5 03/11/19 04:15: Blood Gas Puncture Site RIGHT RADIAL, Blood Gas Patient Temperature 97.6, Arterial Blood pH 7.49, Arterial Blood Partial Pressure CO2 45, Arterial Blood Partial Pressure O2 74, Arterial Blood HCO3 34, Arterial Blood Total CO2 35.8, Arterial Blood Oxygen Saturation 96, Arterial Blood Base Excess 10.2, Jeff Test YES-POS, Blood Gas Ventilator Setting YES, Blood Gas Inspired Oxygen 35% 03/11/19 05:30: Specimen Type (Other Body Source) Bron Lavage RLL, Adenovirus (PCR) Not Det ected, Cytomegalovirus DNA Quant (PCR) <200, CMV DNA Quant PCR log IU/mL <2.30, Human Metapneumovirus (PCR) Not Detected, Influenza Virus Type A (PCR) Not Detected, Influenza Virus Type B (PCR) Not Detected, Parainfluenza Type 1 (PCR) Not Detected, Parainfluenza Type 2 (PCR) Not Detected, Parainfluenza Type 3 (PCR) Not Detected, Respiratory Syncytial Virus (PCR) Not Detected 03/11/19 06:13: Glucometer 168 03/11/19 12:24: Glucometer 154 03/11/19 14:41: Blood Gas Puncture Site L RAD, Blood Gas Patient Temperature 98, Arterial Blood pH 7.43, Arterial Blood Partial Pressure CO2 53, Arterial Blood Partial Pressure O2 78, Arterial Blood HCO3 34, Arterial Blood Total CO2 35.7, Arterial Blood Oxygen Saturation 96, Arterial Blood Base Excess 9.3, Jeff Test YES-POS, Blood Gas Ventilator Setting YES, Blood Gas Inspired Oxygen 35% 03/11/19 18:05: Vancomycin Level Trough 24.0 03/11/19 18:18: Glucometer 171 03/11/19 22:58: Glucometer 135 03/12/19 03:18: White Blood Count 17.6, Red Blood Count 5.38, Hemoglobin 14.6, Hematocrit 45, Mean Corpuscular Volume 83, Mean Corpuscular Hemoglobin 27, Mean Corpuscular Hemoglobin Concent 33, Red Cell Distribution Width 18.0, Platelet Count 138, Mean Platelet Volume 10.7, Neutrophils (%) (Auto) 95, Lymphocytes (%) (Auto) 2, Monocytes (%) (Auto) 2, Eosinophils (%) (Auto) 0, Basophils (%) (Auto) 0, Neutrophils # (Auto) 16.8, Lymphocytes # (Auto) 0.4, Monocytes # (Auto) 0.4, Eosinophils # (Auto) 0.0, Basophils # (Auto) 0.0, Sodium Level 135, Potassium Level 4.6, Chloride Level 97, Carbon Dioxide Level 26, Anion Gap 12, Blood Urea Nitrogen 18, Creatinine 0.81, Estimat Glomerular Filtration Rate > 60, BUN/Creatinine Ratio 22, Glucose Level 150, Lactic Acid Level 0.89, Calcium Level 8.3, Phosphorus Level 3.2, Magnesium Level 1.9 03/12/19 03:25: Blood Gas Puncture Site L RAD, Blood Gas Patient Temperature 99.5, Arterial Blood pH 7.45, Arterial Blood Partial Pressure CO2 50, Arterial Blood Partial Pressure O2 72, Arterial Blood HCO3 34, Arterial Blood Total CO2 35.1, Arterial Blood Oxygen Saturation 94, Arterial Blood Base Excess 9.3, Jeff Test YES-POS, Blood Gas Ventilator Setting YES, Blood Gas Inspired Oxygen 35% 03/12/19 06:05: Vancomycin Level Trough 18.2 03/12/19 08:29: Blood Gas Puncture Site RT RADIAL, Blood Gas Patient Temperature 98, Arterial Blood pH 7.47, Arterial Blood Partial Pressure CO2 49, Arterial Blood Partial Pressure O2 61, Arterial Blood HCO3 35, Arterial Blood Total CO2 36.7, Arterial Blood Oxygen Saturation 91, Arterial Blood Base Excess 10.9, Jeff Test YES-POS, Blood Gas Ventilator Setting YES, Blood Gas Inspired Oxygen 30% 03/12/19 11:39: Glucometer 116 03/12/19 17:35: Glucometer 115 03/13/19 03:00: White Blood Count 15.6, Red Blood Count 5.28, Hemoglobin 14.3, Hematocrit 45, Mean Corpuscular Volume 84, Mean Corpuscular Hemoglobin 27, Mean Corpuscular Hemoglobin Concent 32, Red Cell Distribution Width 18.4, Platelet Count 133, Mean Platelet Volume 10.2, Neutrophils (%) (Auto) 96, Lymphocytes (%) (Auto) 3, Monocytes (%) (Auto) 2, Eosinophils (%) (Auto) 0, Basophils (%) (Auto) 0, Neutrophils # (Auto) 14.9, Lymphocytes # (Auto) 0.4, Monocytes # (Auto) 0.2, Eosinophils # (Auto) 0.0, Basophils # (Auto) 0.0, Sodium Level 140, Potassium Level 4.2, Chloride Level 99, Carbon Dioxide Level 31, Anion Gap 10, Blood Urea Nitrogen 20, Creatinine 0.82, Estimat Glomerular Filtration Rate > 60, BUN/Creatinine Ratio 24, Glucose Level 113, Calcium Level 8.5, Phosphorus Level 3.5, Magnesium Level 2.0 03/14/19 03:09: White Blood Count 11.2, Red Blood Count 5.47, Hemoglobin 14.5, Hematocrit 46, Mean Corpuscular Volume 83, Mean Corpuscular Hemoglobin 27, Mean Corpuscular Hemoglobin Concent 32, Red Cell Distribution Width 18.7, Platelet Count 121, Mean Platelet Volume 10.7, Neutrophils (%) (Auto) 86, Lymphocytes (%) (Auto) 6, Monocytes (%) (Auto) 8, Eosinophils (%) (Auto) 0, Basophils (%) (Auto) 0, Neutrophils # (Auto) 9.6, Lymphocytes # (Auto) 0.7, Monocytes # (Auto) 0.9, Eosinophils # (Auto) 0.0, Basophils # (Auto) 0.0, Sodium Level 142, Potassium Level 4.2, Chloride Level 101, Carbon Dioxide Level 30, Anion Gap 11, Blood Urea Nitrogen 21, Creatinine 0.74, Estimat Glomerular Filtration Rate > 60, BUN/Creatinine Ratio 28, Glucose Level 103, Calcium Level 8.6, Phosphorus Level 3.5, Magnesium Level 2.3 03/17/19 05:10: White Blood Count 7.9, Red Blood Count 5.90, Hemoglobin 15.7, Hematocrit 48, Mean Corpuscular Volume 82, Mean Corpuscular Hemoglobin 27, Mean Corpuscular Hemoglobin Concent 33, Red Cell Distribution Width 18.6, Platelet Count 95, Mean Platelet Volume 11.7, Neutrophils (%) (Auto) 63, Lymphocytes (%) (Auto) 24, Monocytes (%) (Auto) 12, Eosinophils (%) (Auto) 1, Basophils (%) (Auto) 0, Neutrophils # (Auto) 5.0, Lymphocytes # (Auto) 1.9, Monocytes # (Auto) 1.0, Eosinophils # (Auto) 0.1, Basophils # (Auto) 0.0, Sodium Level 139, Potassium Level 3.7, Chloride Level 101, Carbon Dioxide Level 28, Anion Gap 10, Blood Urea Nitrogen 23, Creatinine 0.77, Estimat Glomerular Filtration Rate > 60, BUN/Creatinine Ratio 30, Glucose Level 80, Calcium Level 8.5, Corrected Calcium 9.0, Total Bilirubin 0.9, Aspartate Amino Transf (AST/SGOT) 25, Alanine Aminotransferase (ALT/SGPT) 31, Alkaline Phosphatase 42, Total Protein 6.0, Albumin 3.4 Discussion & Recommendations Patient states he won't smoke anymore Discharge Home Medications: Active Scripts Active Reported Tylenol (Acetaminophen) 325 Mg Tablet 325-650 Mg PO EVERY 4-6 HOURS PRN TAKES 1-2 (325MG) TABLETS Aripiprazole 15 Mg Tablet 15 Mg PO DAILY Debrox (Carbamide Peroxide) 15 Ml Drops 5 Drops EACH EAR Q12H PRN Multi-Vitamin Daily (Multivitamin) 1 Each Tablet 1 Tab PO DAILY Zofran (Ondansetron HCl) 4 Mg Tab 4 Mg PO Q4H PRN Refresh Tears (Carboxymethylcellulose Sodium) 15 Ml Drops 1 Drop OU Q4H PRN Clonazepam 0.5 Mg Tablet 0.5 Mg PO BID Divalproex Sodium 125 Mg Cap.sprink 125 Mg PO TID Benzonatate 200 Mg Capsule 200 Mg PO Q8H PRN Symbicort 160-4.5 Mcg Inhaler (Budesonide/Formoterol Fumarate) 10.2 Gm Hfa.aer.ad 2 Puff IH BID Protonix (Pantoprazole Sodium) 40 Mg Tablet. 40 Mg PO DAILY Metoprolol Tartrate 25 Mg Tablet 25 Mg PO BID HOLD FOR SYSTOLIC BP < 100 Lexapro (Escitalopram Oxalate) 20 Mg Tablet 40 Mg PO DAILY TAKES 2 (20MG) TABLETS Lasix (Furosemide) 20 Mg Tablet 20 Mg PO DAILY Iprat-Albut 0.5-3(2.5) mg/3 ml (Ipratropium/Albuterol Sulfate) 3 Ml Ampul.neb 3 Ml NEB Q6H PRN Aspirin EC (Aspirin) 81 Mg Tablet. 81 Mg PO DAILY Instructions to patient/family Please see electronic discharge instructions given to patient. Clinical Quality Measures DVT/VTE Risk/Contraindication: Risk Factor Score Per Nursin RFS Level Per Nursing on Admit: 4+=Very High ART CASANOVA DO March 18, 2019 08:03
== END 2019-03-17 16:20 | DRG 208 ==
LOC: EDUNIT# 12:39 → ER 12:40 → ICU 14:57 → 4TH 03-13 08:55 → UNDODISIN 03-17 12:30
PROVIDERS: ADMIT Family Medicine; ATTEND Family Medicine
PROC: 5A1945Z Respiratory Ventilation, 24-96 Consecutive Hours (ICD-10-PCS; principal; 2019-03-09)
PROC: 0BH17EZ Insertion of Endotracheal Airway into Trachea, Via Natural or Artificial Opening (ICD-10-PCS; 2019-03-09)
PROC: 0B9F8ZX Drainage of Right Lower Lung Lobe, Via Natural or Artificial Opening Endoscopic, Diagnostic (ICD-10-PCS; 2019-03-11)
PROC: 0B978ZX Drainage of Left Main Bronchus, Via Natural or Artificial Opening Endoscopic, Diagnostic (ICD-10-PCS; 2019-03-11)
PROC: 0BB68ZX Excision of Right Lower Lobe Bronchus, Via Natural or Artificial Opening Endoscopic, Diagnostic (ICD-10-PCS; 2019-03-11)
PROC: 07D74ZX Extraction of Thorax Lymphatic, Percutaneous Endoscopic Approach, Diagnostic (ICD-10-PCS; 2019-03-11)
DX: J96.21 Acute and chronic respiratory failure with hypoxia (principal); E87.4 Mixed disorder of acid-base balance; J44.1 Chronic obstructive pulmonary disease with (acute) exacerbation; J81.1 Chronic pulmonary edema; C18.9 Malignant neoplasm of colon, unspecified; F14.20 Cocaine dependence, uncomplicated; E87.2 Acidosis; J18.9 Pneumonia, unspecified organism; J44.0 Chronic obstructive pulmonary disease with (acute) lower respiratory infection; B96.89 Other specified bacterial agents as the cause of diseases classified elsewhere; F17.210 Nicotine dependence, cigarettes, uncomplicated; R59.0 Localized enlarged lymph nodes; I95.9 Hypotension, unspecified; I11.0 Hypertensive heart disease with heart failure; I50.9 Heart failure, unspecified; K21.9 Gastro-esophageal reflux disease without esophagitis; B19.20 Unspecified viral hepatitis C without hepatic coma; R27.9 Unspecified lack of coordination; R26.9 Unspecified abnormalities of gait and mobility; F41.9 Anxiety disorder, unspecified; R45.6 Violent behavior; F32.9 Major depressive disorder, single episode, unspecified; E66.9 Obesity, unspecified; Z68.30 Body mass index [BMI] 30.0-30.9, adult; R59.1 Generalized enlarged lymph nodes; Z91.19 Patient's noncompliance with other medical treatment and regimen; Z87.01 Personal history of pneumonia (recurrent)
CPT/HCPCS: 31500; 36415; 36600; 71045; 71275; 74177; 80048; 80053; 80202; 81000; 82805; 82962; 83605; 83735; 83880; 84100; 84484; 85007; 85025; 85027; 87015; 87040; 87070; 87077; 87081; 87101; 87116; 87185; 87205; 87206; 87631; 87910; 88112; 88173; 88305; 88312; 93005; 93306; 94002; 94003; 94640; 94760; 94799; 96374; 99291

== ENCOUNTER 2019-04-10 13:56 | Inpatient (IN) | payer MEDICAID ==
[~2019-04-10] VITALS: Ht 165.1 cm; Wt 92.3 kg
[2019-04-10] VITALS (11 sets, daily range): BP systolic 97–139; BP diastolic 48–91
[2019-04-10] MEDS ORDERED: RT-ALBUTEROL SULF 2.5 MG/3 ML PRE-MIX VIAL INH STA (14:06)
[2019-04-10] MEDS ORDERED: RT-ALBUTEROL/IPRATROPIUM 3 ML (DUONEB) VIAL INH ONE (14:15)
[2019-04-10] MEDS ORDERED: methylPREDNISolone 125 MG (Solu-MEDROL) VIAL IVP ONE (14:15)
[2019-04-10 14:20] LABS: BASOPHILS % (AUTO) 0 % (0-10); EOSINOPHILS % (AUTO) 0 % (0-10); HEMATOCRIT 47 % (40-54); HEMOGLOBIN 15.1 G/DL (13.3-17.7); LYMPHOCYTES # (AUTO) 1.6 X 10^3 (1.0-4.0); LYMPHOCYTES % (AUTO) 15 % (12-44); MEAN CORPUSCULAR HEMOGLOBIN 27 PG (25-34); MEAN CORPUSCULAR HGB CONC 32 G/DL (32-36); MEAN CORPUSCULAR VOLUME 84 FL (80-99); MONOCYTES # (AUTO) 2.5 X 10^3 (0.0-1.0); MONOCYTES % (AUTO) 23 % (0-12); NEUTROPHILS # (AUTO) 6.4 X 10^3 (1.8-7.8); NEUTROPHILS % (AUTO) 61 % (42-75); PLATELET COUNT 127 10^3/uL (130-400); RED CELL DISTRIBUTION WIDTH 19.4 % (10.0-14.5); WHITE BLOOD COUNT 10.6 10^3/uL (4.3-11.0)
--- NOTE | 2019-04-10 14:31 | Diagnostic Imaging Report ---
Indication: Shortness of air. Time of exam: 2:22 PM Correlation is made with prior study 03/13/2019. The heart size appears be stable. The left lung appears clear. There are some mild infiltrates identified in the right base suggestive of pneumonia. No effusion is seen. No pneumothorax. Impression: Findings suggestive of mild right basilar pneumonia. Dictated by: Dictated on workstation # [id number]
--- OUTSIDE RECORDS SUMMARY | 2019-04-10 14:43 | XMS REPORT | Clinical Summary ---
Author Author [facility] Organization [facility] Address Unknown Phone Unavailable Care Team Providers Care Lineworker Name Role Phone Traci Lyons RN Unavailable Unavailable Clifton Navarrete MD PCP Source Comments Some departments are not documenting in the electronic medical record. If you d o not see the information that you expected, contact Release of Information in [facility] Health Information Management department at [phone] for further assistan ce in locating additional records.[facility] Allergies No Known Allergies Medications End [...] travel history available. Last Filed Vital Signs Reading Time Taken Comments Vital Sign 133/71 10/08/2007 11:36 PM FINANCIAL RETIREMENT PLAN SPECIALIST Blood Pressure 94 10/08/2007 11:36 PM FINANCIAL RETIREMENT PLAN SPECIALIST Pulse 36.1 C (97 F) 10/08/2007 11:36 PM FINANCIAL RETIREMENT PLAN SPECIALIST Temperature - - Respiratory Rate 93% 10/08/2007 11:36 PM FINANCIAL RETIREMENT PLAN SPECIALIST Oxygen Saturation - - Inhaled Oxygen Concentration - - Weight - - Height - - Body Mass Index Plan of Treatment Health Maintenance Due Date Last Done Comments HEPATITIS C SCREENING 1958 PHYSICAL (COMPREHENSIVE) 1965 EXAM HIV SCREENING 1973 DTAP/TDAP VACCINES (1 - 1976 Tdap) COLORECTAL CANCER 2008 SCREENING SHINGLES RECOMBINANT 2008 VACCINE (1 of 2) INFLUENZA VACCINE 07/21/2019 Results Not on filefrom Last 3 Months
--- OUTSIDE RECORDS SUMMARY | 2019-04-10 14:43 | XMS REPORT | Clinical Summary ---
Author Author [facility] Organization [facility] Address Unknown Phone Unavailable Care Team Providers Care Applied Psychology Chair Name Role Phone PCP Unavailable Allergies Not [...] Taken Blood Pressure 130/70 11/09/2008 4:27 PM AREA COUNSELOR Pulse 80 11/09/2008 4:27 PM AREA COUNSELOR Temperature - - Respiratory Rate 16 11/09/2008 4:27 PM AREA COUNSELOR Oxygen Saturation - - Inhaled Oxygen - - Concentration Weight 86.2 kg (190 lb) 11/09/2008 4:27 PM AREA COUNSELOR Height 173.9 cm (5' 8.45") 10/12/2008 2:28 PM AREA COUNSELOR Body Mass Index 28.51 11/09/2008 4:27 PM AREA COUNSELOR Plan of Treatment Not on file Results Not on filefrom Last 3 Months
[2019-04-10 14:46] LABS: ALANINE AMINOTRANSFERASE 15 U/L (0-55); ALBUMIN 3.9 GM/DL (3.2-4.5); ALKALINE PHOSPHATASE 81 U/L (40-136); BILIRUBIN,TOTAL 1.2 MG/DL (0.1-1.0); BUN/CREATININE RATIO 15; CALCIUM 9.6 MG/DL (8.5-10.1); CARBON DIOXIDE 30 MMOL/L (21-32); CHLORIDE 96 MMOL/L (98-107); CREATININE SERUM 0.78 MG/DL (0.60-1.30); GFR ESTIMATED > 60; GLUCOSE 140 MG/DL (70-105); POTASSIUM 4.1 MMOL/L (3.6-5.0); SODIUM 138 MMOL/L (135-145); TOTAL PROTEIN 7.7 GM/DL (6.4-8.2)
[2019-04-10 14:50] LABS: ANISOCYTOSIS MARKED; BAND NEUTROPHILS 36 %; BASOPHILS % (MANUAL) 0 %; EOSINOPHILS % (MANUAL) 0 %; LYMPHOCYTES % (MANUAL) 15 %; METAMYELOCYTES % 4 %; MONOCYTES % (MANUAL) 25 %; NEUTROPHILS % (MANUAL) 20 %
[2019-04-10 14:52] LABS: PROTHROMBIN TIME PATIENT 13.7 SEC (12.2-14.7)
[2019-04-10] MEDS ORDERED: PIPERACILLIN/TAZOBACTAM (BULK) 4.5 GM in NS (IVPB) 100 ML IV ONE (15:30)
[2019-04-10] MEDS ORDERED: FUROSEMIDE 40 MG/4 ML INJ (LASIX) IVP ONE (15:45)
[2019-04-10 15:53] LABS: CLARITY,URINE SLIGHTLY CLOUDY; COLOR,URINE YELLOW; GLUCOSE, URINE (UA) NEGATIVE (NEGATIVE); KETONES,URINE NEGATIVE (NEGATIVE); LEUKOCYTE ESTERASE ,URINE 1+ (NEGATIVE); NITRITE,URINE NEGATIVE (NEGATIVE); PH,URINE 5 (5-9); PROTEIN,URINE 2+ (NEGATIVE); UROBILINOGEN,URINE 4 MG/DL (NORMAL)
[2019-04-10 16:07] LABS: BILIRUBIN,URINE 1+ (NEGATIVE)
[2019-04-10 16:10] LABS: BACTERIA,URINE FEW /HPF; WBC,URINE RARE /HPF
--- NOTE | 2019-04-10 16:22 | ED Respiratory ---
General Chief Complaint: Respiratory Problems Stated Complaint: SOA Nursing Triage Note: PATIENT HERE BY EMS FOR COMPLAINTS OF SOB AND DESATTING. HE COMES FROM A LONG-TERM. PATIENT IS A POOR HISTORIAN. EMS REPORTS THAT THE LONG-TERM TOLD THEM HE HAD A FEVER BUT HE WAS AFEBRILE FOR EMS AND UPON ARRIVAL. HE HAS AUDIBLE CRACKLES. Source: patient, EMS, skilled nursing records, old records Exam Limitations: clinical condition History of Present Illness Date Seen by Provider: Apr 10, 2019 Time Seen by Provider: 13:57 Initial Comments This 58-year-old gentleman presents to the emergency room via EMS from the skilled nursing. He appears to be in respiratory distress with decreased air movement and wet breath sounds and wet sounding cough. He does have a history of congestive heart failure and COPD per his skilled nursing records. Supplemental oxygen was applied with a nonrebreather mask. Patient did not receive any nebulizer treatments in route. He has a poor historian and does not provide much history. He has chronic productive cough which has turned green in color recently. Subjective fever was reported by EMS but patient did not have a measurable fever for EMS or ER staff. Patient denies any pain. He states he feels tired. Allergies and Home Medications Allergies Coded Allergies: No Known Drug Allergies (Unverified , 03/09/19) Home Medications Acetaminophen 325 Mg Tablet, 325-650 MG PO EVERY 4-6 HOURS PRN for PAIN-MILD, (Reported) TAKES 1-2 (325MG) TABLETS Aripiprazole 15 Mg Tablet, 15 MG PO DAILY, (Reported) Aspirin 81 Mg Tablet.dr, 81 MG PO DAILY, (Reported) Benzonatate 200 Mg Capsule, 200 MG PO Q8H PRN for COUGH, (Reported) Budesonide/Formoterol Fumarate 10.2 Gm Hfa.aer.ad, 2 PUFF IH BID, (Reported) Carbamide Peroxide 15 Ml Drops, 5 DROPS EACH EAR Q12H PRN for WAX BUILD UP, (Reported) Carboxymethylcellulose Sodium 15 Ml Drops, 1 DROP OU Q4H PRN for DRY EYES, (Reported) Clonazepam 0.5 Mg Tablet, 0.5 MG PO BID, (Reported) Divalproex Sodium 125 Mg Cap.sprink, 125 MG PO TID, (Reported) Escitalopram Oxalate 20 Mg Tablet, 40 MG PO DAILY, (Reported) TAKES 2 (20MG) TABLETS Furosemide 20 Mg Tablet, 20 MG PO DAILY, (Reported) Ipratropium/Albuterol Sulfate 3 Ml Ampul.neb, 3 ML NEB Q6H PRN for SHORTNESS OF BREATH, (Reported) Metoprolol Tartrate 25 Mg Tablet, 25 MG PO BID, (Reported) HOLD FOR SYSTOLIC BP < 100 Multivitamin 1 Each Tablet, 1 TAB PO DAILY, (Reported) Ondansetron HCl 4 Mg Tab, 4 MG PO Q4H PRN for NAUSEA/VOMITING-1ST LINE, (Reported) Pantoprazole Sodium 40 Mg Tablet.dr, 40 MG PO DAILY, (Reported) Patient Home Medication List Home Medication List Reviewed: Yes Review of Systems Review of Systems Constitutional: see HPI EENTM: no symptoms reported Respiratory: see HPI Cardiovascular: no symptoms reported Gastrointestinal: no symptoms reported Genitourinary: no symptoms reported Musculoskeletal: no symptoms reported Skin: no symptoms reported Psychiatric/Neurological: See HPI Hematologic/Lymphatic: No Symptoms Reported Immunological/Allergic: no symptoms reported Past Gnkmcty-Vwecxs-Raiwlk Hx Past Med/Social Hx: Reviewed and Corrections made Patient Social History Recreational Drug Use: Yes Drug of Choice: Past history of cocaine dependence Type Used: Cigarettes Recent Foreign Travel: No Contact w/Someone Who Travel: No Recent Infectious Disease Expo: No Recent Hopitalizations: No Immunizations Up To Date Tetanus Booster (TDap): Unknown Date of Pneumonia Vaccine: March 04, 2018 Date of Influenza Vaccine: Jan 05, 2019 Seasonal Allergies Seasonal Allergies: No Past Medical History Surgeries: No Respiratory: Yes Pneumonia, COPD Cardiac: Yes (heart failure) Hypertension Neurological: No Genitourinary: No Gastrointestinal: Yes Gastroesophageal Reflux, Hepatitis Musculoskeletal: Yes (lack of coordination, abnormal gait/mobility) Endocrine: No HEENT: No Cancer: Yes Colon Psychosocial: Yes (cocaine dependence) Anxiety, Violent Behavior, Depression Integumentary: No Blood Disorders: Yes (HEP C ) Family Medical History No Pertinent Family Hx Physical Exam Vital Signs - First Documented 04/10/19 04/10/19 14:00 14:58 Temp 97.7 Pulse 106 Resp 30 B/P (MAP) 134/76 (95) Pulse Ox 96 O2 Delivery Room Air O2 Flow Rate 15.00 Capillary Refill : Less Than 3 Seconds Height: 5'10.00" Weight: 211lbs. 11.2oz. 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, no motor/sensory deficits, alert, normal mood/affect Skin: normal color, warm/dry Focused Exam Lactate Level 04/10/19 14:30: Lactic Acid Level 0.94 Lactic Acid Level Laboratory Tests Test 04/10/19 14:30 Lactic Acid Level 0.94 MMOL/L (0.50-2.00) Procedures/Interventions Date of ETT Placement: March 09, 2019 Time of ETT Placement: 1444 Progress/Results/Core Measures Suspected Sepsis Recent Fever Within 48 Hours: No Infection Criteria Present: Suspected New Infection New/Unexplained Altered Menta: No Sepsis Screen: Possible Sepsis Risk SIRS Temperature:97.7 Pulse: 94 Respiratory Rate: 38 Laboratory Tests 04/10/19 14:00: White Blood Count 10.6 Blood Pressure 139 /64 Mean: 95 04/10/19 14:30: Lactic Acid Level 0.94 Laboratory Tests 04/10/19 14:00: Creatinine 0.78, Platelet Count 127L, Total Bilirubin 1.2H 04/10/19 14:30: INR Comment 1.0 Results/Orders Lab Results Laboratory Tests Test 04/10/19 14:00 04/10/19 14:30 04/10/19 15:45 Range/Units White Blood Count 10.6 4.3-11.0 10^3/uL Red Blood Count 5.65 4.35-5.85 10^6/uL Hemoglobin 15.1 13.3-17.7 G/DL Hematocrit 47 40-54 % Mean Corpuscular Volume 84 80-99 FL Mean Corpuscular Hemoglobin 27 25-34 PG Mean Corpuscular Hemoglobin Concent 32 32-36 G/DL Red Cell Distribution Width 19.4 H 10.0-14.5 % Platelet Count 127 L 130-400 10^3/uL Mean Platelet Volume 11.0 H 7.4-10.4 FL Neutrophils (%) (Auto) 61 42-75 % Lymphocytes (%) (Auto) 15 12-44 % Monocytes (%) (Auto) 23 H 0-12 % Eosinophils (%) (Auto) 0 0-10 % Basophils (%) (Auto) 0 0-10 % Neutrophils # (Auto) 6.4 1.8-7.8 X 10^3 Lymphocytes # (Auto) 1.6 1.0-4.0 X 10^3 Monocytes # (Auto) 2.5 H 0.0-1.0 X 10^3 Eosinophils # (Auto) 0.0 0.0-0.3 10^3/uL Basophils # (Auto) 0.0 0.0-0.1 10^3/uL Neutrophils % (Manual) 20 % Lymphocytes % (Manual) 15 % Monocytes % (Manual) 25 % Eosinophils % (Manual) 0 % Basophils % (Manual) 0 % Metamyelocytes % 4 % Band Neutrophils 36 % Anisocytosis MARKED Sodium Level 138 135-145 MMOL/L Potassium Level 4.1 3.6-5.0 MMOL/L Chloride Level 96 L 98-107 MMOL/L Carbon Dioxide Level 30 21-32 MMOL/L Anion Gap 12 5-14 MMOL/L Blood Urea Nitrogen 12 7-18 MG/DL Creatinine 0.78 0.60-1.30 MG/DL Estimat Glomerular Filtration Rate > 60 BUN/Creatinine Ratio 15 Glucose Level 140 H 70-105 MG/DL Calcium Level 9.6 8.5-10.1 MG/DL Corrected Calcium 9.7 8.5-10.1 MG/DL Total Bilirubin 1.2 H 0.1-1.0 MG/DL Aspartate Amino Transf (AST/SGOT) 14 5-34 U/L Alanine Aminotransferase (ALT/SGPT) 15 0-55 U/L Alkaline Phosphatase 81 40-136 U/L C-Reactive Protein High Sensitivity 37.28 H 0.00-0.50 MG/DL B-Type Natriuretic Peptide 177.0 H <100.0 PG/ML Total Protein 7.7 6.4-8.2 GM/DL Albumin 3.9 3.2-4.5 GM/DL Prothrombin Time 13.7 12.2-14.7 SEC INR Comment 1.0 0.8-1.4 Activated Partial Thromboplast Time 30 24-35 SEC Lactic Acid Level 0.94 0.50-2.00 MMOL/L Urine Color YELLOW Urine Clarity SLIGHTLY CLOUDY Urine pH 5 5-9 Urine Specific [place] 1.025 H 1.016-1.022 Urine Protein 2+ H NEGATIVE Urine Glucose (UA) NEGATIVE NEGATIVE Urine Ketones NEGATIVE NEGATIVE Urine Nitrite NEGATIVE NEGATIVE Urine Bilirubin 1+ H NEGATIVE Urine Urobilinogen 4 H NORMAL MG/DL Urine Leukocyte Esterase 1+ H NEGATIVE Urine RBC (Auto) 3+ H NEGATIVE Urine RBC 5-10 H /HPF Urine WBC RARE /HPF Urine Squamous Epithelial Cells NONE /HPF Urine Crystals NONE /LPF Urine Bacteria FEW H /HPF Urine Casts NONE /LPF Urine Mucus MODERATE H /LPF Urine Culture Indicated CULTURE PENDING My Orders Orders - GABE YAN MD Cbc With Automated Diff (04/10/19 14:04) Comprehensive Metabolic Panel (04/10/19 14:04) Blood Culture (04/10/19 14:04) Sputum Culture (04/10/19 14:04) Urinalysis (04/10/19 14:04) Urine Culture (04/10/19 14:04) Protime With Inr (04/10/19 14:04) Partial Thromboplastin Time (04/10/19 14:04) Chest 1 View, Ap/Pa Only (04/10/19 14:04) Ed Iv/Invasive Line Start (04/10/19 14:04) Ed Iv/Invasive Line Start (04/10/19 14:04) Vital Signs Adult Sepsis Patie Q15M (04/10/19 14:04) O2 (04/10/19 14:04) Remove Rings In Anticipation O (04/10/19 14:04) Lactic Acid Analyzer (04/10/19 14:04) BNP (04/10/19 14:04) Hs C Reactive Protein (04/10/19 14:04) Albuterol Pre-Mix Nebs (Rt) (Proventil (04/10/19 14:06) Albuterol/Ipra Inhalation Soln (Duoneb I (04/10/19 14:15) Svn Small Volume Nebulizer (04/10/19 14:06) Svn Small Volume Nebulizer (04/10/19 14:06) Methylprednisolone Sod Succ (Solu-Medrol (04/10/19 14:15) Manual Differential (04/10/19 14:00) Bipap (Bilevel) Set Up (04/10/19 15:14) Piperacillin/Tazobactam (Bulk) (Zosyn In (04/10/19 15:30) Furosemide Injection (Lasix Injection) (04/10/19 15:45) Medications Given in ED Current Medications Medications Dose Ordered Sig/Mi Route Start Time Stop Time Status Last Admin Dose Admin Albuterol/ Ipratropium 3 ml ONCE ONCE INH 04/10/19 14:15 04/10/19 14:16 DC 04/10/19 14:57 3 ML Furosemide 40 mg ONCE ONCE IVP 04/10/19 15:45 04/10/19 15:46 DC 04/10/19 15:52 40 MG Methylprednisolone Sodium Succinate 125 mg ONCE ONCE IVP 04/10/19 14:15 04/10/19 14:16 DC 04/10/19 14:20 125 MG Piperacillin Sod/ Tazobactam Sod 4.5 gm/Sodium Chloride 120 ml @ 240 mls/hr ONCE ONCE IV 04/10/19 15:30 04/10/19 15:59 DC 04/10/19 15:52 240 MLS/HR Vital Signs/I&O 04/10/19 04/10/19 04/10/19 14:00 14:58 15:22 Temp 97.7 Pulse 106 94 Resp 30 38 B/P (MAP) 134/76 (95) Pulse Ox 96 98 94 O2 Delivery Room Air Non Rebreather O2 Flow Rate 15.00 55.00 Capillary Refill : Less Than 3 Seconds Blood Pressure Mean: 95 Progress Note : Progress Note Patient was administered a one hour nebulizer treatment. This did improve his condition somewhat. However, patient was moving very little air and sounded congested on auscultation. BiPAP was added to his therapy and also improved his status. Septic workup was pursued and blood cultures were obtained. Empiric antibiotic therapy was started with Zosyn. However, patient pulled his IV line and some of the Zosyn leaked onto the bed. It is unclear how much of the Zosyn dose he actually received. For this reason cefepime was also given. Chest x- ray was suggestive of pneumonia. However, patient did not seem septic as his WBC, CRP, lactic acid, temperature, and vitals were relatively unremarkable. His respiratory failure was felt to be related to COPD exacerbation and simple pneumonia without sepsis. Clinically, patient seemed to have wet lungs. Case was discussed with Dr. Redmond and we elected to give him a dose of IV Lasix. Patient was stable at the time of admission. Diagnostic Imaging Diagonstic Imaging: Xray Plain Films/CT/US/NM/MRI: chest Comments Chest x-ray viewed by me and report reviewed. See report below: NAME: LUIS MANUEL RETANA [facility] REC#: [id number] PT STATUS: REG ER : 1960 PHYSICIAN: GABE YAN MD ADMIT DATE: 04/10/19/ER Signed Date of Exam: 04/10/19 CHEST 1 VIEW, AP/PA ONLY Indication: Shortness of air. Time of exam: 2:22 PM Correlation is made with prior study 03/13/2019. The heart size appears be stable. The left lung appears clear. There are some mild infiltrates identified in the right base suggestive of pneumonia. No effusion is seen. No pneumothorax. Impression: Findings suggestive of mild right basilar pneumonia. Dictated by: Dictated on workstation # [id number] Dict: 04/10/19 1427 Trans: 04/10/19 1454 Interpreted by: ANDRÉS HIDALGO MD Electronically signed by: ANDRÉS HIDALGO MD 04/10/19 1454 Departure Communication (Admissions) Time/Spoke to Admitting Phy: 16:00 Dr. Jean Time/Spoke to Consulting Phy: 15:22 Dr. Redmond Impression Primary Impression: Respiratory failure Qualified Codes: J96.01 - Acute respiratory failure with hypoxia Additional Impressions: COPD exacerbation Bilateral pneumonia Qualified Codes: J18.1 - Lobar pneumonia, unspecified organism Disposition: HOME, SELF-CARE Condition: Improved Admissions Decision to Admit Reason: Admit from ER (General) Decision to Admit/Date: Apr 10, 2019 Time/Decision to Admit Time: 14:00 Departure-Patient Inst. Referrals: ART CASANOVA DO (PCP/Family) Primary Care Physician Copy Copies To 1: ART CASANOVA JOSHUA T MD Apr 10, 2019 16:22
[2019-04-10] MEDS ORDERED: CEFEPIME INJECTION 2,000 MG in WATER (STERILE) FOR INJECTION 20 ML IV ONE (16:30)
--- OUTSIDE RECORDS SUMMARY | 2019-04-10 16:55 | XMS REPORT | Clinical Summary ---
Author Author [facility] Organization [facility] Address Unknown Phone Unavailable Care Team Providers Care Cosmetic Chemist Name Role Phone PCP Unavailable Allergies Not [...] Taken Blood Pressure 130/70 11/09/2008 4:27 PM LAMINATION ASSEMBLER Pulse 80 11/09/2008 4:27 PM LAMINATION ASSEMBLER Temperature - - Respiratory Rate 16 11/09/2008 4:27 PM LAMINATION ASSEMBLER Oxygen Saturation - - Inhaled Oxygen - - Concentration Weight 86.2 kg (190 lb) 11/09/2008 4:27 PM LAMINATION ASSEMBLER Height 173.9 cm (5' 8.45") 10/12/2008 2:28 PM LAMINATION ASSEMBLER Body Mass Index 28.51 11/09/2008 4:27 PM LAMINATION ASSEMBLER Plan of Treatment Not on file Results Not on filefrom Last 3 Months
--- OUTSIDE RECORDS SUMMARY | 2019-04-10 16:55 | XMS REPORT | Clinical Summary ---
Author Author [facility] Organization [facility] Address Unknown Phone Unavailable Care Team Providers Care Golf Shoe Spike Assembler Name Role Phone Traci Lyons RN Unavailable Unavailable Clifton Navarrete MD PCP Source Comments Some departments are not documenting in the electronic medical record. If you d o not see the information that you expected, contact Release of Information in [facility] Health Information Management department at [phone] for further assistan ce in locating additional records.[facility] Allergies No Known Allergies Medications End Date [...] Comments Vital Sign 133/71 10/08/2007 11:36 PM PODIATRIC AIDE Blood Pressure 94 10/08/2007 11:36 PM PODIATRIC AIDE Pulse 36.1 C (97 F) 10/08/2007 11:36 PM PODIATRIC AIDE Temperature - - Respiratory Rate 93% 10/08/2007 11:36 PM PODIATRIC AIDE Oxygen Saturation - - Inhaled Oxygen Concentration [...]
--- NOTE | 2019-04-10 17:46 | Pulmonary Consultation ---
History of Present Illness History of Present Illness Date of Consultation 04/10/19 17:40 Date of Admission Allergies and Home Medications Allergies Coded Allergies: No Known Drug Allergies (Unverified , 03/09/19) Home Medications Acetaminophen 325 Mg Tablet, 325-650 MG PO EVERY 4-6 HOURS PRN for PAIN-MILD, (Reported) TAKES 1-2 (325MG) TABLETS Aripiprazole 15 Mg Tablet, 15 MG PO DAILY, (Reported) Aspirin 81 Mg Tablet.dr, 81 MG PO DAILY, (Reported) Benzonatate 200 Mg Capsule, 200 MG PO Q8H PRN for COUGH, (Reported) Budesonide/Formoterol Fumarate 10.2 Gm Hfa.aer.ad, 2 PUFF IH BID, (Reported) Carbamide Peroxide 15 Ml Drops, 5 DROPS EACH EAR Q12H PRN for WAX BUILD UP, (Reported) Carboxymethylcellulose Sodium 15 Ml Drops, 1 DROP OU Q4H PRN for DRY EYES, (Reported) Clonazepam 0.5 Mg Tablet, 0.5 MG PO BID, (Reported) Divalproex Sodium 125 Mg Cap.sprink, 125 MG PO TID, (Reported) Escitalopram Oxalate 20 Mg Tablet, 40 MG PO DAILY, (Reported) TAKES 2 (20MG) TABLETS Furosemide 20 Mg Tablet, 20 MG PO DAILY, (Reported) Ipratropium/Albuterol Sulfate 3 Ml Ampul.neb, 3 ML NEB Q6H PRN for SHORTNESS OF BREATH, (Reported) Metoprolol Tartrate 25 Mg Tablet, 25 MG PO BID, (Reported) HOLD FOR SYSTOLIC BP < 100 Multivitamin 1 Each Tablet, 1 TAB PO DAILY, (Reported) Ondansetron HCl 4 Mg Tab, 4 MG PO Q4H PRN for NAUSEA/VOMITING-1ST LINE, (Reported) Pantoprazole Sodium 40 Mg Tablet.dr, 40 MG PO DAILY, (Reported) Past Ajfdezu-Vtgkhf-Ajcgzt Hx Patient Social History Alcohol Use: Denies Use Recreational Drug Use: No (hx of cocaine use) Smoking Status: Current Everyday Smoker Type Used: Cigarettes 2nd Hand Smoke Exposure: No Recent Foreign Travel: No Contact w/Someone Who Travel: No Recent Infectious Disease Expo: No Recent Hopitalizations: No Physical Abuse: No Sexual Abuse: No Immunizations Up To Date Tetanus Booster (TDap): Unknown Date of Pneumonia Vaccine: March 04, 2018 Date of Influenza Vaccine: Jan 05, 2019 Seasonal Allergies Seasonal Allergies: No Past Medical History Surgeries: No Respiratory: Yes Pneumonia, COPD Cardiac: Yes (heart failure) Hypertension Neurological: No Genitourinary: No Gastrointestinal: Yes Gastroesophageal Reflux, Hepatitis Musculoskeletal: Yes (lack of coordination, abnormal gait/mobility) Endocrine: No HEENT: No Cancer: Yes Colon Psychosocial: Yes (cocaine dependence) Anxiety, Violent Behavior, Depression Integumentary: No Blood Disorders: Yes (HEP C ) Family Medical History Patient reports no known family medical history. No Pertinent Family Hx Sepsis Event Evaluation Height, Weight, BMI Height: 5'5.00" Weight: 200lbs. 0.0oz. 90.355293fr; 33.3 BMI Method:Stated Exam Exam Vital Signs Date Time Temp Pulse Resp B/P (MAP) Pulse Ox O2 Delivery O2 Flow Rate FiO2 04/10/19 16:20 97 Non Rebreather 15.00 04/10/19 15:22 94 38 94 55.00 04/10/19 14:58 98 Non Rebreather 15.00 04/10/19 14:00 97.7 106 30 134/76 (95) 96 Room Air Height & Weight Height: 5'5.00" Weight: 200lbs. 0.0oz. 90.020076ny; 33.3 BMI Method:Stated Capillary Refill: Less Than 3 Seconds Results Lab Laboratory Tests 04/10/19 14:00 Assessment/Plan Assessment/Plan Acute on chronic respiratory failure -Continue BiPAP -Check stat ABG COPDAE -SVNS -Solumedrol PNA RLL vs pulmonary congestion -Contine Abx -I suspect more pulmonary edema s/p lasix in ED. KEYONA EVANS DO Apr 10, 2019 17:46
[2019-04-10] MEDS ORDERED: RT-ALBUTEROL SULF 2.5 MG/3 ML PRE-MIX VIAL IH PRN (18:00)
[2019-04-10] MEDS ORDERED: ONDANSETRON 4 MG/2 ML (SDV) Z0FRAN IV PRN (18:00)
[2019-04-10] MEDS ORDERED: VANCOMYCIN 1,750 MG/NS 500 ML IVPB IV NR ×2 (18:00)
[2019-04-10] MEDS ORDERED: CATHETER FLUSH 10 ML SYR IV PRN (18:00)
[2019-04-10 18:11] LABS: ABG BASE EXCESS 7.1 MMOL/L (-2.5-2.5); ABG OXYGEN SATURATION 96 % (94-100); ABG PCO2 60 MMHG (35-45); ABG PH 7.35 (7.37-7.43); ABG PO2 78 MMHG (79-93); ABG TCO2 34.6 MMOL/L (21.0-31.0); ALLENS TEST POSITIVE; INSPIRED O2 55% BIPAP; PATIENT TEMP 97.1; VENTILATOR NO
[2019-04-10] MEDS: NS IV 1000 ML 1,000 ML IV SCH (18:23)
[2019-04-10] MEDS: RT-ALBUTEROL/IPRATROPIUM 3 ML (DUONEB) VIAL IH SCH ×2 (19:11→22:36)
[2019-04-10] MEDS: PIPERACILLIN/TAZO 4.5 GM/NS 100 ML IV SCH ×2 (22:33)
[2019-04-10] MEDS: methylPREDNISolone 40 MG/ML (Solu-MEDROL) VIAL IV SCH (22:33)
[2019-04-11] VITALS (32 sets, daily range): BP systolic 90–137; BP diastolic 47–75
[2019-04-11] MEDS: RT-ALBUTEROL/IPRATROPIUM 3 ML (DUONEB) VIAL IH SCH ×6 (02:05→21:58)
[2019-04-11] MEDS: methylPREDNISolone 40 MG/ML (Solu-MEDROL) VIAL IV SCH ×4 (02:28→18:05)
[2019-04-11 03:19] LABS: BASOPHILS % (AUTO) 1 % (0-10); EOSINOPHILS # (AUTO) 0.1 10^3/uL (0.0-0.3); EOSINOPHILS % (AUTO) 2 % (0-10); HEMATOCRIT 35 % (40-54); HEMOGLOBIN 12.1 G/DL (13.3-17.7); LYMPHOCYTES # (AUTO) 0.9 X 10^3 (1.0-4.0); LYMPHOCYTES % (AUTO) 25 % (12-44); MEAN CORPUSCULAR HEMOGLOBIN 34 PG (25-34); MEAN CORPUSCULAR HGB CONC 35 G/DL (32-36); MEAN CORPUSCULAR VOLUME 98 FL (80-99); MEAN PLATELET VOLUME 11.3 FL (7.4-10.4); MONOCYTES # (AUTO) 0.4 X 10^3 (0.0-1.0); MONOCYTES % (AUTO) 11 % (0-12); NEUTROPHILS # (AUTO) 2.1 X 10^3 (1.8-7.8); NEUTROPHILS % (AUTO) 61 % (42-75); PLATELET COUNT 115 10^3/uL (130-400); RED CELL DISTRIBUTION WIDTH 13.1 % (10.0-14.5); WHITE BLOOD COUNT 3.4 10^3/uL (4.3-11.0)
[2019-04-11 03:39] LABS: BUN/CREATININE RATIO 10; CALCIUM 9.1 MG/DL (8.5-10.1); CARBON DIOXIDE 24 MMOL/L (21-32); CHLORIDE 101 MMOL/L (98-107); CREATININE SERUM 0.68 MG/DL (0.60-1.30); GFR ESTIMATED > 60; GLUCOSE 106 MG/DL (70-105); MAGNESIUM 1.4 MG/DL (1.8-2.4); PHOSPHORUS 2.6 MG/DL (2.3-4.7); POTASSIUM 3.9 MMOL/L (3.6-5.0); SODIUM 135 MMOL/L (135-145)
[2019-04-11 04:27] LABS: ABG BASE EXCESS 5.9 MMOL/L (-2.5-2.5); ABG OXYGEN SATURATION 94 % (94-100); ABG PCO2 59 MMHG (35-45); ABG PO2 71 MMHG (79-93); ABG TCO2 33.4 MMOL/L (21.0-31.0)
[2019-04-11 04:30] LABS: ABG PH 7.34 (7.37-7.43); ALLENS TEST POSITIVE; INSPIRED O2 40% BIPAP; VENTILATOR YES
[2019-04-11] MEDS: NS IV 1000 ML 1,000 ML IV SCH ×2 (04:31→13:43)
[2019-04-11] MEDS: MAGNESIUM 1 GM/100 ML IVPB 100 ML IV SCH ×2 (05:51→06:36)
[2019-04-11] MEDS: POTASSIUM CL 10MEQ/50ML IVPB 50 ML IV SCH (06:37)
--- NOTE | 2019-04-11 08:01 | Pulmonary Progress Note ---
Subjective Time Seen by a Provider: 08:24 Subjective/Events-last exam Pt still appears lethargic. Sepsis Event Evaluation Height, Weight, BMI Height: 5'5.00" Weight: 203lbs. 7.0oz. 92.899853kv; 33.3 BMI Method:Stated Focused Exam Lactate Level 04/10/19 14:30: Lactic Acid Level 0.94 Exam Exam Vital Signs Date Time Temp Pulse Resp B/P (MAP) Pulse Ox O2 Delivery O2 Flow Rate FiO2 04/11/19 07:48 93 Nasal Cannula 3.00 04/11/19 07:00 69 04/11/19 06:00 77 16 108/65 (79) 93 NIV Bilevel 40.00 04/11/19 05:00 77 14 106/61 (76) 93 NIV Bilevel 40.00 04/11/19 04:00 71 15 109/66 (80) 93 NIV Bilevel 40.00 04/11/19 03:00 86 19 104/67 (79) 90 NIV Bilevel 50.00 04/11/19 02:06 80 17 95 30.00 04/11/19 02:00 81 14 119/64 (82) 95 NIV Bilevel 50.00 04/11/19 01:00 82 04/11/19 01:00 82 21 110/61 (77) 95 NIV Bilevel 50.00 04/11/19 00:00 73 20 90/47 (61) 93 NIV Bilevel 50.00 04/10/19 23:00 80 22 103/54 (70) 94 NIV Bilevel 50.00 04/10/19 22:37 80 19 94 40.00 04/10/19 22:00 79 18 97/56 (70) 92 NIV Bilevel 50.00 04/10/19 21:00 84 20 106/91 (96) 93 NIV Bilevel 50.00 04/10/19 20:58 81 17 93 40.00 04/10/19 20:00 85 18 110/48 (68) 92 NIV Bilevel 50.00 04/10/19 19:30 96.7 04/10/19 19:11 80 20 97 40.00 80 04/10/19 19:00 83 04/10/19 19:00 21 100/61 (74) 97 NIV Bilevel 55.00 04/10/19 18:05 97.1 04/10/19 18:00 90 29 108/63 (78) 92 NIV Bilevel 55.00 04/10/19 17:40 91 04/10/19 17:37 95 NIV Bilevel 04/10/19 17:30 95 13 106/62 (77) 93 NIV Bilevel 55.00 04/10/19 17:05 97.7 94 38 139/64 (89) 97 Non Rebreather 15.00 04/10/19 16:20 97 Non Rebreather 15.00 04/10/19 15:22 94 38 94 55.00 04/10/19 14:58 98 Non Rebreather 15.00 04/10/19 14:00 97.7 106 30 134/76 (95) 96 Room Air 04/10/19 08:45 NIV Bilevel 40 I & O 04/11/19 07:00 Intake Total 500 ml Output Total 675 ml Balance -175 ml Height & Weight Height: 5'5.00" Weight: 203lbs. 7.0oz. 92.959948us; 33.3 BMI Method:Stated General Appearance: Mild Distress HEENT: PERRL/EOMI, Normal ENT Inspection, Pharynx Normal Neck: Full Range of Motion, Normal Inspection, Non Tender, Supple Respiratory: Chest Non Tender, No Accessory Muscle Use, No Respiratory Distress, Decreased Breath Sounds Cardiovascular: Regular Rate, Rhythm, No Edema Capillary Refill: Less Than 3 Seconds Gastrointestinal: normal bowel sounds, non tender, soft Extremity: Normal Capillary Refill, Normal Inspection, No Pedal Edema Neurologic/Psychiatric: Alert, Oriented x3 Skin: Normal Color, Warm/Dry Lymphatic: No Adenopathy Results Lab Laboratory Tests 04/10/19 14:00 04/11/19 03:10 Assessment/Plan Assessment/Plan Acute on chronic respiratory failure -Continue BiPAP/Vapotherm COPDAE -SVNS -Solumedrol PNA RLL vs pulmonary congestion -Contine Abx -I suspect more pulmonary edema s/p lasix in ED. Morbid obesity KEYONA EVANS DO Apr 11, 2019 08:01
--- NOTE | 2019-04-11 08:21 | Diagnostic Imaging Report ---
Portable erect AP chest at 327 hours. INDICATION: Respiratory failure. FINDINGS: The heart size is within normal limits and stable when compared to 04/10/2019. The atelectasis/infiltrate involving the right lung base seen on the prior study is again evident and perhaps slightly worse. The right upper lung and left lung remain generally clear. The mediastinum is not widened. The osseous structures are intact. IMPRESSION: The appearance of the chest has worsened somewhat as the atelectasis/infiltrate involving the right lung base seen previously is perhaps slightly greater. A followup exam would be recommended for continued evaluation. Dictated by: Dictated on workstation # [id number]
[2019-04-11] MEDS: KCL 20 MEQ TAB (K-DUR) PO SCH (08:39)
[2019-04-11] MEDS: PIPERACILLIN/TAZO 4.5 GM/NS 100 ML IV SCH ×6 (08:41→23:10)
[2019-04-11] MEDS: VANCOMYCIN 1 GM/NS 250 ML IVPB IV SCH ×4 (08:42→18:05)
--- NOTE | 2019-04-11 11:50 | History & Physical-Hospitalist ---
History of Present Illness HPI/Chief Complaint CC: Respiratory failure HPI: This is a 58yoWM clinic patient of Dr Lacey well known to this examiner due to multiple hospital stays in the recent past for respiratory failure requiring IV abx and biPAP. Patient is now on biPAP and sleeping so no new details obtained from the patient. Patient appears more and more declined every time he is admitted and overall prognosis remains very poor and he remains a full code. Source: patient Exam Limitations: no limitations Date Seen 04/11/19 Time Seen by a Provider: 11:00 Attending Physician Ginger Jean DO PCP Abelino Lacey DO Referring Physician Date of Admission Apr 10, 2019 at 16:14 Home Medications & Allergies Home Medications Reviewed patient Home Medication Reconciliation performed by pharmacy medication reconciliations master fire control technician and/or nursing. Patients Allergies have been reviewed. Allergies Allergies Coded Allergies No Known Drug Allergies (Unverified03/09/19) Past Stddfzq-Aeutpa-Izcobh Hx Past Med/Social Hx: Reviewed Nursing Past Med/Soc Hx, Reviewed and Corrections made Patient Social History Marrital Status: single Employed/Student: unemployed Alcohol Use: Denies Use Recreational Drug Use: Yes Drug of Choice: Past history of cocaine dependence Smoking Status: Current Everyday Smoker Type Used: Cigarettes 2nd Hand Smoke Exposure: No Recent Foreign Travel: No Contact w/other who traveled: No Recent Hopitalizations: No Recent Infectious Disease Expo: No Immunizations Up To Date Tetanus Booster (TDap): Unknown Date of Pneumonia Vaccine: March 04, 2018 Date of Influenza Vaccine: Jan 05, 2019 Seasonal Allergies Seasonal Allergies: No Past Medical History Respiratory: Chronic Bronchitis, COPD, Emphysema, Pneumonia Cardiac: Hypertension Gastrointestinal: Gastroesophageal Reflux, Hepatitis Cancer: Colon Psychosocial: Anxiety, Violent Behavior, Depression History of Blood Disorders: Yes (HEP C ) Family History Patient reports no known family medical history. No Pertinent Family Hx Review of Systems Constitutional: see HPI Respiratory: dyspnea on exertion, short of breath Physical Exam Physical Exam Vital Signs Vital Signs - First Documented 04/10/19 04/10/19 04/10/19 08:45 14:00 14:58 Temp 97.7 Pulse 106 Resp 30 B/P (MAP) 134/76 (95) Pulse Ox 96 O2 Delivery NIV Bilevel O2 Flow Rate 15.00 FiO2 40 Capillary Refill : Less Than 3 SecondsLess Than 3 Seconds Height, Weight, BMI Height: 5'5.00" Weight: 203lbs. 7.0oz. 92.846171cb; 33.3 BMI Method:Stated General Appearance: No Apparent Distress, WD/WN, Chronically ill, Other (asleep on biPAP) Respiratory: Crackles, Decreased Breath Sounds Cardiovascular: Regular Rate, Rhythm, No Edema, No Gallop, No JVD, No Murmur, Normal Peripheral Pulses Results Results/Procedures Labs Laboratory Tests 04/10/19 14:00 04/11/19 03:10 Patient resulted labs reviewed. Assessment/Plan Admission Diagnosis Assessment: Respiratory failure acute on chronic COPD O2 dependence Poor prognosis Plan: biPAP Nebs O2 Admission Status: Inpatient Order (span 2 midnights) Reason for Inpatient Admission: resp failure will require 4 days inpatient Diagnosis/Problems Diagnosis/Problems (1) Respiratory failure Status: Acute Qualifiers: Chronicity: acute Respiratory failure complication: hypoxia Qualified Codes: J96.01 - Acute respiratory failure with hypoxia (2) Acute and chronic respiratory failure Status: Acute (3) Poor prognosis Status: Acute (4) COPD exacerbation Status: Acute Clinical Quality Measures DVT/VTE Risk/Contraindication: Risk Factor Score Per Nursin RFS Level Per Nursing on Admit: 4+=Very High GINGER JEAN DO Apr 11, 2019 11:50
--- NOTE | 2019-04-11 12:32 | NUR ---
o2 sats mid-high80's while on bipap at 40%fio2. increased fio2 to 75%, sats 87-90%. dr solomon informed. new orders received for abg.
[2019-04-11 12:44] LABS: ABG OXYGEN SATURATION 91 % (94-100); ABG PCO2 58 MMHG (35-45); ABG PH 7.35 (7.37-7.43); ABG PO2 61 MMHG (79-93); ABG TCO2 33.2 MMOL/L (21.0-31.0)
[2019-04-11 12:46] LABS: ALLENS TEST YES-POS; INSPIRED O2 75%; PATIENT TEMP 97.8; VENTILATOR NO
[2019-04-11 15:18] LABS: ABG OXYGEN SATURATION 97 % (94-100); ABG PCO2 62 MMHG (35-45); ABG PO2 89 MMHG (79-93); ABG TCO2 33.6 MMOL/L (21.0-31.0)
[2019-04-11 15:21] LABS: ABG PH 7.33 (7.37-7.43); ALLENS TEST YES-POS; INSPIRED O2 75%; PATIENT TEMP 98.2; VENTILATOR NO
--- NOTE | 2019-04-11 15:23 | NUR ---
ABG RESULTS GIVEN TO DR EVANS
--- NOTE | 2019-04-11 15:41 | NUR ---
BIPAP SETTINGS ADJUSTED PER DR EVANS, CURRENTLY 15/, RR 14, AND FIO2 DECREASED TO 50%--WILL TITRATE TO KEEP SATS 90-92%. REPEAT ABG IN 1 HR.
[2019-04-11 17:01] LABS: ABG BASE EXCESS -3.8 MMOL/L (-2.5-2.5); ABG OXYGEN SATURATION 96 % (94-100); ABG PCO2 38 MMHG (35-45); ABG PH 7.35 (7.37-7.43); ABG PO2 138 MMHG (79-93); ABG TCO2 22.1 MMOL/L (21.0-31.0)
[2019-04-11 17:03] LABS: ALLENS TEST YES-POS; INSPIRED O2 40%; VENTILATOR NO
--- NOTE | 2019-04-11 17:28 | NUR ---
ABG RESULTS GIVEN TO DR EVANS. NEW ORDERS RECEIVED TO DECREASE FIO2 TO 30%.
[2019-04-12] VITALS (31 sets, daily range): BP systolic 105–150; BP diastolic 59–95
[2019-04-12] MEDS: NS IV 1000 ML 1,000 ML IV SCH ×4 (00:20→20:56)
[2019-04-12] MEDS: methylPREDNISolone 40 MG/ML (Solu-MEDROL) VIAL IV SCH ×5 (00:30→23:59)
[2019-04-12] MEDS: RT-ALBUTEROL/IPRATROPIUM 3 ML (DUONEB) VIAL IH SCH ×6 (02:51→22:00)
[2019-04-12 03:24] LABS: BASOPHILS % (AUTO) 0 % (0-10); EOSINOPHILS % (AUTO) 0 % (0-10); HEMATOCRIT 43 % (40-54); HEMOGLOBIN 13.7 G/DL (13.3-17.7); LYMPHOCYTES % (AUTO) 8 % (12-44); MEAN CORPUSCULAR HEMOGLOBIN 27 PG (25-34); MEAN CORPUSCULAR HGB CONC 32 G/DL (32-36); MEAN CORPUSCULAR VOLUME 84 FL (80-99); MEAN PLATELET VOLUME 11.8 FL (7.4-10.4); MONOCYTES # (AUTO) 1.1 X 10^3 (0.0-1.0); MONOCYTES % (AUTO) 9 % (0-12); NEUTROPHILS # (AUTO) 11.1 X 10^3 (1.8-7.8); NEUTROPHILS % (AUTO) 84 % (42-75); PLATELET COUNT 142 10^3/uL (130-400); RED CELL DISTRIBUTION WIDTH 18.7 % (10.0-14.5); WHITE BLOOD COUNT 13.3 10^3/uL (4.3-11.0)
[2019-04-12 03:43] LABS: BUN/CREATININE RATIO 29; CALCIUM 9.1 MG/DL (8.5-10.1); CARBON DIOXIDE 27 MMOL/L (21-32); CHLORIDE 107 MMOL/L (98-107); CREATININE SERUM 0.83 MG/DL (0.60-1.30); GFR ESTIMATED > 60; GLUCOSE 146 MG/DL (70-105); MAGNESIUM 2.2 MG/DL (1.8-2.4); PHOSPHORUS 2.6 MG/DL (2.3-4.7); POTASSIUM 4.1 MMOL/L (3.6-5.0); SODIUM 145 MMOL/L (135-145)
[2019-04-12 04:11] LABS: ABG BASE EXCESS 5.8 MMOL/L (-2.5-2.5); ABG OXYGEN SATURATION 91 % (94-100); ABG PCO2 52 MMHG (35-45); ABG PH 7.39 (7.37-7.43); ABG PO2 58 MMHG (79-93); ABG TCO2 32.4 MMOL/L (21.0-31.0)
[2019-04-12 04:17] LABS: ALLENS TEST POSITIVE; INSPIRED O2 30% BIPAP; VENTILATOR YES
[2019-04-12] MEDS: POTASSIUM CL 10MEQ/50ML IVPB 50 ML IV SCH (04:28)
[2019-04-12] MEDS: KCL 20 MEQ TAB (K-DUR) PO SCH (04:29)
--- NOTE | 2019-04-12 05:26 | Pulmonary Progress Note ---
Subjective Time Seen by a Provider: 05:25 Subjective/Events-last exam Pt is doing better however still currently requiring BiPAP. Sepsis Event Evaluation Height, Weight, BMI Height: 5'5.00" Weight: 203lbs. 7.0oz. 92.987624yw; 33.3 BMI Method:Stated Focused Exam Lactate Level 04/10/19 14:30: Lactic Acid Level 0.94 Exam Exam Vital Signs Date Time Temp Pulse Resp B/P (MAP) Pulse Ox O2 Delivery O2 Flow Rate FiO2 04/12/19 05:00 68 20 128/71 (90) 92 NIV Bilevel 30.00 04/12/19 04:06 66 19 95 30.00 04/12/19 04:00 67 18 118/66 (83) 94 NIV Bilevel 30.00 04/12/19 04:00 NIV Bilevel 30 04/12/19 03:00 80 20 127/70 (89) 90 NIV Bilevel 30.00 04/12/19 02:56 NIV Bilevel 30.00 04/12/19 02:52 65 18 97 35.00 04/12/19 02:00 65 23 122/63 (82) 94 NIV Bilevel 35.00 04/12/19 01:00 74 04/12/19 01:00 74 18 120/59 (79) 94 NIV Bilevel 35.00 04/12/19 00:00 NIV Bilevel 35 04/12/19 00:00 71 14 115/68 (84) 97 NIV Bilevel 35.00 04/11/19 23:00 69 14 137/73 (94) 96 NIV Bilevel 35.00 04/11/19 22:00 70 22 119/67 (84) 95 NIV Bilevel 35.00 04/11/19 21:58 71 21 95 40.00 04/11/19 21:00 73 16 103/64 (77) 92 NIV Bilevel 30.00 04/11/19 20:00 NIV Bilevel 30 04/11/19 20:00 75 16 108/62 (77) 90 NIV Bilevel 30.00 04/11/19 19:06 73 17 92 30.00 04/11/19 19:00 68 04/11/19 19:00 98.2 80 20 116/63 (80) 91 NIV Bilevel 30.00 04/11/19 18:00 70 11 109/61 (77) 93 NIV Bilevel 30.00 04/11/19 17:00 80 13 100/57 (71) 93 NIV Bilevel 40.00 04/11/19 16:07 71 16 95 50.00 04/11/19 16:00 96.7 04/11/19 16:00 76 16 96/62 (73) 96 NIV Bilevel 40.00 04/11/19 15:18 73 15 97 75.00 04/11/19 15:12 NIV Bilevel 75 04/11/19 15:00 75 15 103/59 (74) 95 NIV Bilevel 75.00 04/11/19 14:00 75 13 114/75 (88) 97 NIV Bilevel 75.00 04/11/19 13:15 84 33 108/68 (81) 94 NIV Bilevel 75.00 04/11/19 13:00 79 04/11/19 12:45 79 15 99/60 (73) 91 NIV Bilevel 75.00 04/11/19 11:45 76 19 113/66 (82) 92 NIV Bilevel 40.00 04/11/19 11:29 96.3 04/11/19 11:20 NIV Bilevel 40 04/11/19 11:00 04/11/19 10:46 74 15 96 40.00 04/11/19 10:30 70 8 122/69 (86) 94 NIV Bilevel 40.00 04/11/19 10:00 69 18 107/62 (77) 94 NIV Bilevel 40.00 04/11/19 09:00 74 15 114/64 (81) 93 NIV Bilevel 40.00 04/11/19 08:59 74 15 93 40.00 04/11/19 08:33 97.3 04/11/19 08:00 77 14 112/60 (77) 93 NIV Bilevel 40.00 04/11/19 08:00 Nasal Cannula 3.00 04/11/19 07:48 93 Nasal Cannula 3.00 04/11/19 07:00 69 04/11/19 07:00 69 12 115/63 (80) 92 NIV Bilevel 40.00 04/11/19 06:00 77 16 108/65 (79) 93 NIV Bilevel 40.00 I & O 04/12/19 07:00 Intake Total 1960 ml Output Total 585 ml Balance 1375 ml Height & Weight Height: 5'5.00" Weight: 203lbs. 7.0oz. 92.214906cl; 33.3 BMI Method:Stated General Appearance: No Apparent Distress, WD/WN, Chronically ill, Other (asleep on biPAP) HEENT: PERRL/EOMI, Normal ENT Inspection, Pharynx Normal Neck: Full Range of Motion, Normal Inspection, Non Tender, Supple Respiratory: Crackles, Decreased Breath Sounds Cardiovascular: Regular Rate, Rhythm, No Edema, No Gallop, No JVD, No Murmur, Normal Peripheral Pulses Capillary Refill: Less Than 3 Seconds Gastrointestinal: normal bowel sounds, non tender, soft Extremity: Normal Capillary Refill, Normal Inspection, No Pedal Edema Neurologic/Psychiatric: Alert, Oriented x3 Skin: Normal Color, Warm/Dry Lymphatic: No Adenopathy Results Lab Laboratory Tests 04/10/19 14:00 04/11/19 03:10 04/12/19 03:14 Assessment/Plan Assessment/Plan Acute on chronic respiratory failure -Continue BiPAP/Vapotherm -Monitor close COPDAE -SVNS -Solumedrol PNA RLL vs pulmonary congestion -Contine Abx -I suspect more pulmonary edema s/p lasix in ED. Morbid obesity KEYONA EVANS DO Apr 12, 2019 05:26
[2019-04-12] MEDS ORDERED: TROUGH ORDER-PHARMACY XX NR (06:00)
[2019-04-12] MEDS: PIPERACILLIN/TAZO 4.5 GM/NS 100 ML IV SCH ×6 (06:43→22:15)
[2019-04-12] MEDS: VANCOMYCIN 1 GM/NS 250 ML IVPB IV SCH ×4 (07:46→18:00)
[2019-04-12 08:16] LABS: ABG BASE EXCESS 4.9 MMOL/L (-2.5-2.5); ABG OXYGEN SATURATION 69 % (94-100); ABG PCO2 54 MMHG (35-45); ABG PH 7.37 (7.37-7.43); ABG PO2 43 MMHG (79-93); ABG TCO2 31.6 MMOL/L (21.0-31.0)
[2019-04-12 08:20] LABS: ALLENS TEST YES-POS
[2019-04-12 08:21] LABS: INSPIRED O2 25% BIPAP; PATIENT TEMP 98.3; VENTILATOR NO
--- NOTE | 2019-04-12 09:47 | Diagnostic Imaging Report ---
INDICATION: Respiratory failure. Dyspnea. COMPARISON: 04/11/2019 FINDINGS: Single frontal radiographic view of the chest was obtained and demonstrates stable cardiac silhouette and pulmonary vasculature. Lungs again show asymmetric elevation of the right hemidiaphragm with persistent patchy opacities in the right base, stable compared to prior exam. Left lung remains essentially clear. No large effusion or pneumothorax is seen. Osseous structures show no acute abnormalities. IMPRESSION: 1. Stable exam of the chest showing infiltrate appearing opacities within the right lower lung field. Continued followup is recommended. Dictated by: Dictated on workstation # [id number]
--- NOTE | 2019-04-12 11:49 | Progress Note-Hospitalist ---
Subjective HPI/CC On Admission Date Seen by Provider: Apr 12, 2019 Time Seen by Provider: 11:30 CC: Respiratory failure HPI: This is a 58yoWM clinic patient of Dr Lacey well known to this examiner due to multiple hospital stays in the recent past for respiratory failure requiring IV abx and biPAP. Patient is now on biPAP and sleeping so no new details obtained from the patient. Patient appears more and more declined every time he is admitted and overall prognosis remains very poor and he remains a full code. Subjective/Events-last exam Patient was doing well off BiPAP on Vapotherm but then he drink a full glass of water aspirated now back on BiPAP Antibiotics continue End-stage respiratory status requires multiple hospital stays every other week for pneumonia and respiratory failure Review of Systems General: Fatigue Pulmonary: Dyspnea Focused Exam Lactate Level 04/10/19 14:30: Lactic Acid Level 0.94 Objective Exam Vital Signs Vital Signs Date Time Temp Pulse Resp B/P (MAP) Pulse Ox O2 Delivery O2 Flow Rate FiO2 04/12/19 13:00 90 30 88 NIV Bilevel 25.00 04/12/19 12:00 25 04/12/19 11:05 99.2 Capillary Refill : Less Than 3 SecondsLess Than 3 Seconds General Appearance: No Apparent Distress, WD/WN, Chronically ill, Other (asleep on biPAP) HEENT: PERRL/EOMI, Normal ENT Inspection, Pharynx Normal Neck: Full Range of Motion, Normal Inspection, Non Tender, Supple Respiratory: Crackles, Decreased Breath Sounds Cardiovascular: Regular Rate, Rhythm, No Edema, No Gallop, No JVD, No Murmur, Normal Peripheral Pulses Extremity: Normal Capillary Refill, Normal Inspection, No Pedal Edema Neurologic/Psychiatric: Alert, Oriented x3 Skin: Normal Color, Warm/Dry Lymphatic: No Adenopathy Results/Procedures Lab Laboratory Tests 04/12/19 03:14 Patient resulted labs reviewed. Assessment/Plan Assessment and Plan Assess & Plan/Chief Complaint Assessment: Respiratory insufficiency acute on chronic BiPAP dependence Aspiration risk Pneumonia COPD Plan: BiPAP IV antibiotics Poor prognosis Diagnosis/Problems Diagnosis/Problems (1) Respiratory failure Status: Acute Qualifiers: Chronicity: acute Respiratory failure complication: hypoxia Qualified Codes: J96.01 - Acute respiratory failure with hypoxia (2) Acute and chronic respiratory failure Status: Acute (3) Poor prognosis Status: Acute (4) COPD exacerbation Status: Acute Clinical Quality Measures DVT/VTE Risk/Contraindication: Risk Factor Score Per Nursin RFS Level Per Nursing on Admit: 4+=Very High CHRIS EMERSON DO Apr 12, 2019 11:49
[2019-04-13] VITALS (26 sets, daily range): BP systolic 114–178; BP diastolic 65–119
[2019-04-13] MEDS: RT-ALBUTEROL/IPRATROPIUM 3 ML (DUONEB) VIAL IH SCH ×6 (02:50→21:30)
[2019-04-13 03:37] LABS: ABG BASE EXCESS 3.1 MMOL/L (-2.5-2.5); ABG OXYGEN SATURATION 95 % (94-100); ABG PCO2 43 MMHG (35-45); ABG PH 7.42 (7.37-7.43); ABG PO2 68 MMHG (79-93); ABG TCO2 28.7 MMOL/L (21.0-31.0)
[2019-04-13 03:40] LABS: BASOPHILS # (AUTO) 0.1 10^3/uL (0.0-0.1); BASOPHILS % (AUTO) 1 % (0-10); EOSINOPHILS % (AUTO) 0 % (0-10); HEMATOCRIT 43 % (40-54); HEMOGLOBIN 13.6 G/DL (13.3-17.7); LYMPHOCYTES # (AUTO) 1.2 X 10^3 (1.0-4.0); LYMPHOCYTES % (AUTO) 9 % (12-44); MEAN CORPUSCULAR HEMOGLOBIN 27 PG (25-34); MEAN CORPUSCULAR HGB CONC 32 G/DL (32-36); MEAN CORPUSCULAR VOLUME 83 FL (80-99); MONOCYTES % (AUTO) 8 % (0-12); NEUTROPHILS # (AUTO) 11.4 X 10^3 (1.8-7.8); NEUTROPHILS % (AUTO) 83 % (42-75); PLATELET COUNT 132 10^3/uL (130-400); RED CELL DISTRIBUTION WIDTH 19.6 % (10.0-14.5); WHITE BLOOD COUNT 13.7 10^3/uL (4.3-11.0)
[2019-04-13 03:44] LABS: ALLENS TEST POSITIVE; INSPIRED O2 25% BIPAP; PATIENT TEMP 97.7; VENTILATOR NO
[2019-04-13 04:08] LABS: BUN/CREATININE RATIO 31; CALCIUM 8.9 MG/DL (8.5-10.1); CARBON DIOXIDE 23 MMOL/L (21-32); CHLORIDE 112 MMOL/L (98-107); CREATININE SERUM 0.87 MG/DL (0.60-1.30); GFR ESTIMATED > 60; GLUCOSE 144 MG/DL (70-105); MAGNESIUM 2.2 MG/DL (1.8-2.4); PHOSPHORUS 2.8 MG/DL (2.3-4.7); POTASSIUM 3.9 MMOL/L (3.6-5.0); SODIUM 147 MMOL/L (135-145)
--- NOTE | 2019-04-13 05:28 | Pulmonary Progress Note ---
Subjective Time Seen by a Provider: 05:27 Subjective/Events-last exam Pt currently on BiPAP. Sepsis Event Evaluation Height, Weight, BMI Height: 5'5.00" Weight: 203lbs. 7.0oz. 92.262207xi; 33.3 BMI Method:Stated Focused Exam Lactate Level 04/10/19 14:30: Lactic Acid Level 0.94 Exam Exam Vital Signs Date Time Temp Pulse Resp B/P (MAP) Pulse Ox O2 Delivery O2 Flow Rate FiO2 04/13/19 05:00 64 33 114/89 (97) 93 NIV Bilevel 25.00 04/13/19 04:00 64 27 166/90 (115) 93 NIV Bilevel 25.00 04/13/19 04:00 97.7 04/13/19 04:00 NIV Bilevel 25 04/13/19 03:00 71 19 168/84 (112) 92 NIV Bilevel 25.00 04/13/19 02:50 70 30 94 25.00 04/13/19 02:00 61 48 152/74 (100) 93 NIV Bilevel 25.00 04/13/19 01:15 102 12 154/119 (131) 94 NIV Bilevel 25.00 04/13/19 01:00 65 04/13/19 00:29 69 35 94 25.00 04/13/19 00:00 NIV Bilevel 25 04/13/19 00:00 97.3 04/13/19 00:00 66 25 155/76 (102) 94 NIV Bilevel 25.00 04/12/19 23:00 71 30 121/67 (85) 91 NIV Bilevel 25.00 04/12/19 22:00 64 29 98 25.00 04/12/19 22:00 71 29 143/73 (96) 93 NIV Bilevel 25.00 04/12/19 21:00 72 27 105/71 (82) 95 NIV Bilevel 25.00 04/12/19 20:00 NIV Bilevel 25 04/12/19 20:00 75 22 105/71 (82) 93 NIV Bilevel 25.00 04/12/19 19:00 97.0 04/12/19 19:00 80 04/12/19 19:00 64 28 145/95 (112) 96 NIV Bilevel 25.00 04/12/19 18:48 60 26 95 25.00 04/12/19 18:00 64 11 144/78 (100) 96 NIV Bilevel 25.00 04/12/19 17:00 62 26 141/71 (94) 89 NIV Bilevel 25.00 04/12/19 16:00 75 17 126/70 (88) 91 NIV Bilevel 25.00 04/12/19 15:45 98.7 04/12/19 15:25 NIV Bilevel 25 04/12/19 15:00 65 33 121/67 (85) 94 NIV Bilevel 25.00 04/12/19 14:52 62 21 93 25.00 04/12/19 14:00 67 34 126/70 (88) 94 NIV Bilevel 25.00 04/12/19 13:00 90 30 88 NIV Bilevel 25.00 04/12/19 12:53 75 04/12/19 12:00 81 24 129/78 (95) 94 NIV Bilevel 25.00 04/12/19 12:00 NIV Bilevel 25 04/12/19 11:10 68 15 94 25.00 04/12/19 11:05 99.2 04/12/19 11:00 69 27 123/65 (84) 94 NIV Bilevel 25.00 04/12/19 10:00 67 17 121/68 (85) 95 NIV Bilevel 25.00 04/12/19 09:09 69 20 95 25.00 04/12/19 09:00 71 33 119/60 (79) 94 NIV Bilevel 25.00 04/12/19 08:56 NIV Bilevel 25 04/12/19 08:00 73 11 115/60 (78) 91 NIV Bilevel 25.00 04/12/19 08:00 98.3 04/12/19 07:04 68 22 93 25.00 04/12/19 07:00 71 22 124/71 (88) 95 NIV Bilevel 25.00 04/12/19 07:00 65 04/12/19 06:49 68 38 96 25.00 04/12/19 06:00 88 23 131/75 (93) 94 NIV Bilevel 30.00 04/12/19 05:55 92 Vapotherm 30.00 35 I & O 04/13/19 07:00 Intake Total 2830 ml Output Total 625 ml Balance 2205 ml Height & Weight Height: 5'5.00" Weight: 203lbs. 7.0oz. 92.372161fc; 33.3 BMI Method:Stated General Appearance: No Apparent Distress, WD/WN, Chronically ill, Other HEENT: PERRL/EOMI, Normal ENT Inspection, Pharynx Normal Neck: Full Range of Motion, Normal Inspection, Non Tender, Supple Respiratory: Crackles, Decreased Breath Sounds Cardiovascular: Regular Rate, Rhythm, No Edema, No Gallop, No JVD, No Murmur, Normal Peripheral Pulses Capillary Refill: Less Than 3 Seconds Gastrointestinal: normal bowel sounds, non tender, soft Extremity: Normal Capillary Refill, Normal Inspection, No Pedal Edema Neurologic/Psychiatric: Alert, Oriented x3 Skin: Normal Color, Warm/Dry Lymphatic: No Adenopathy Results Lab Laboratory Tests 04/12/19 03:14 04/13/19 03:24 Assessment/Plan Assessment/Plan Acute on chronic respiratory failure -Continue BiPAP/Vapotherm -Trial back to Vapotherm -Monitor close Aspiration PNA - present on admission. Then pt aspirated on water during ICU stay. -NPO -Consult Speech -Zosyn/-- D/C Vanco COPDAE -SVNS -Solumedrol Hypernatremia -SL IVF -GIve 40 KCL PNA RLL vs pulmonary congestion -Contine Abx -I suspect more pulmonary edema s/p lasix in ED. Morbid obesity KEYONA EVANS DO Apr 13, 2019 05:28
[2019-04-13] MEDS ORDERED: FUROSEMIDE 40 MG/4 ML INJ (LASIX) IVP ONE (05:30)
[2019-04-13] MEDS ORDERED: FUROSEMIDE 40 MG/4 ML INJ (LASIX) ONE (05:35)
[2019-04-13] MEDS: POTASSIUM CL 10MEQ/50ML IVPB 50 ML IV SCH ×5 (05:50→08:57)
[2019-04-13] MEDS: MAGNESIUM 1 GM/100 ML IVPB 100 ML IV SCH (05:51)
[2019-04-13] MEDS: methylPREDNISolone 40 MG/ML (Solu-MEDROL) VIAL IV SCH ×4 (05:56→23:36)
[2019-04-13] MEDS: PIPERACILLIN/TAZO 4.5 GM/NS 100 ML IV SCH ×6 (05:56→22:02)
[2019-04-13] MEDS: KCL 20 MEQ TAB (K-DUR) PO SCH (05:57)
--- NOTE | 2019-04-13 07:37 | Progress Note (SOAP) ---
Subjective Time Seen by a Provider: 07:34 Subjective/Events-last exam Patient feeling better. Patient on BiPAP. Patient needs speech therapy for evaluation of aspiration of water. Patient stable. Chest x-ray shows pneumonia right side Focused Exam Lactate Level 04/10/19 14:30: Lactic Acid Level 0.94 Objective Exam Vital Signs Date Time Temp Pulse Resp B/P (MAP) Pulse Ox O2 Delivery O2 Flow Rate FiO2 04/13/19 06:00 64 15 177/93 (121) 95 NIV Bilevel 25.00 04/13/19 05:00 64 33 114/89 (97) 93 NIV Bilevel 25.00 04/13/19 04:00 64 27 166/90 (115) 93 NIV Bilevel 25.00 04/13/19 04:00 97.7 04/13/19 04:00 NIV Bilevel 25 04/13/19 03:00 71 19 168/84 (112) 92 NIV Bilevel 25.00 04/13/19 02:50 70 30 94 25.00 04/13/19 02:00 61 48 152/74 (100) 93 NIV Bilevel 25.00 04/13/19 01:15 102 12 154/119 (131) 94 NIV Bilevel 25.00 04/13/19 01:00 65 04/13/19 00:29 69 35 94 25.00 04/13/19 00:00 NIV Bilevel 25 04/13/19 00:00 97.3 04/13/19 00:00 66 25 155/76 (102) 94 NIV Bilevel 25.00 04/12/19 23:00 71 30 121/67 (85) 91 NIV Bilevel 25.00 04/12/19 22:00 64 29 98 25.00 04/12/19 22:00 71 29 143/73 (96) 93 NIV Bilevel 25.00 04/12/19 21:00 72 27 105/71 (82) 95 NIV Bilevel 25.00 04/12/19 20:00 NIV Bilevel 25 04/12/19 20:00 75 22 105/71 (82) 93 NIV Bilevel 25.00 04/12/19 19:00 97.0 04/12/19 19:00 80 04/12/19 19:00 64 28 145/95 (112) 96 NIV Bilevel 25.00 04/12/19 18:48 60 26 95 25.00 04/12/19 18:00 64 11 144/78 (100) 96 NIV Bilevel 25.00 04/12/19 17:00 62 26 141/71 (94) 89 NIV Bilevel 25.00 04/12/19 16:00 75 17 126/70 (88) 91 NIV Bilevel 25.00 04/12/19 15:45 98.7 04/12/19 15:25 NIV Bilevel 25 04/12/19 15:00 65 33 121/67 (85) 94 NIV Bilevel 25.00 04/12/19 14:52 62 21 93 25.00 04/12/19 14:00 67 34 126/70 (88) 94 NIV Bilevel 25.00 04/12/19 13:00 90 30 88 NIV Bilevel 25.00 04/12/19 12:53 75 04/12/19 12:00 81 24 129/78 (95) 94 NIV Bilevel 25.00 04/12/19 12:00 NIV Bilevel 25 04/12/19 11:10 68 15 94 25.00 04/12/19 11:05 99.2 04/12/19 11:00 69 27 123/65 (84) 94 NIV Bilevel 25.00 04/12/19 10:00 67 17 121/68 (85) 95 NIV Bilevel 25.00 04/12/19 09:09 69 20 95 25.00 04/12/19 09:00 71 33 119/60 (79) 94 NIV Bilevel 25.00 04/12/19 08:56 NIV Bilevel 25 04/12/19 08:00 73 11 115/60 (78) 91 NIV Bilevel 25.00 04/12/19 08:00 98.3 I & O 04/13/19 07:00 Intake Total 3880 ml Output Total 1175 ml Balance 2705 ml Capillary Refill : Less Than 3 SecondsLess Than 3 Seconds General Appearance: No Apparent Distress, WD/WN HEENT: Normal ENT Inspection Neck: Full Range of Motion, Normal Inspection Respiratory: No Accessory Muscle Use, No Respiratory Distress, Decreased Breath Sounds Cardiovascular: Regular Rate, Rhythm, No Murmur Gastrointestinal: non tender, soft Results Lab Laboratory Tests 04/13/19 03:24 Laboratory Tests 04/12/19 08:02: Blood Gas Puncture Site L.RADIAL, Blood Gas Patient Temperature 98.3, Arterial Blood pH 7.37, Arterial Blood Partial Pressure CO2 54H, Arterial Blood Partial Pressure O2 43L, Arterial Blood HCO3 30H, Arterial Blood Total CO2 31.6H, Arterial Blood Oxygen Saturation 69L, Arterial Blood Base Excess 4.9H, Jeff Test YES-POS, Blood Gas Ventilator Setting NO, Blood Gas Inspired Oxygen 25% BIPAP 04/12/19 12:13: Glucometer 145H 04/12/19 17:37: Glucometer 139H 04/13/19 00:09: Glucometer 133H 04/13/19 03:24: White Blood Count 13.7H, Red Blood Count 5.13, Hemoglobin 13.6, Hematocrit 43, Mean Corpuscular Volume 83, Mean Corpuscular Hemoglobin 27, Mean Corpuscular Hemoglobin Concent 32, Red Cell Distribution Width 19.6H, Platelet Count 132, Mean Platelet Volume 11.0H, Neutrophils (%) (Auto) 83H, Lymphocytes (%) (Auto) 9L, Monocytes (%) (Auto) 8, Eosinophils (%) (Auto) 0, Basophils (%) (Auto) 1, Neutrophils # (Auto) 11.4H, Lymphocytes # (Auto) 1.2, Monocytes # (Auto) 1.0, Eosinophils # (Auto) 0.0, Basophils # (Auto) 0.1, Sodium Level 147H, Potassium Level 3.9, Chloride Level 112H, Carbon Dioxide Level 23, Anion Gap 12, Blood Urea Nitrogen 27H, Creatinine 0.87, Estimat Glomerular Filtration Rate > 60, BUN/Creatinine Ratio 31, Glucose Level 144H, Calcium Level 8.9, Phosphorus Level 2.8, Magnesium Level 2.2 04/13/19 03:30: Blood Gas Puncture Site LEFT RADIAL, Blood Gas Patient Temperature 97.7, Arterial Blood pH 7.42, Arterial Blood Partial Pressure CO2 43, Arterial Blood Partial Pressure O2 68L, Arterial Blood HCO3 27, Arterial Blood Total CO2 28.7, Arterial Blood Oxygen Saturation 95, Arterial Blood Base Excess 3.1H, Jeff Test POSITIVE, Blood Gas Ventilator Setting NO, Blood Gas Inspired Oxygen 25% BIPAP Microbiology 04/10/19 Blood Culture - Preliminary, Resulted No growth 04/10/19 MRSA Screen - Final, Complete MRSA not isolated 04/10/19 Urine Culture - Final, Complete NO GROWTH Assessment/Plan Assessment/Plan Assess & Plan/Chief Complaint Uterus respiratory failure. Hypoxia. COPD with acute exacerbation. Right lower lobe pneumonia. Aspiration pneumonia. Patient on Vapotherm chronic water and aspirated and put back on BiPAP Clinical Quality Measures DVT/VTE Risk/Contraindication: Risk Factor Score Per Nursin RFS Level Per Nursing on Admit: 4+=Very High ART CASANOVA DO Apr 13, 2019 07:37
--- NOTE | 2019-04-13 07:52 | Diagnostic Imaging Report ---
EXAM: CHEST 1 VIEW, AP/PA ONLY INDICATION: Respiratory failure. COMPARISON: Chest radiograph 04/12/2019. FINDINGS: Stable cardiomegaly and pulmonary vascular congestion. No pleural effusion or pneumothorax. No acute osseous findings. IMPRESSION: Stable exam including cardiomegaly and pulmonary vascular congestion. Dictated by: Dictated on workstation # [id number]
--- NOTE | 2019-04-13 09:30 | NUR ---
Pt is [facility] and currently NPO.
[2019-04-13] MEDS ORDERED: ARIP15TA4 PO (09:42)
--- NOTE | 2019-04-13 09:48 | NUR ---
MED REC WAS COMPLETED BY THE NURSE, I THEN REVIEWED IT AND COMPARED IT WITH THE MED ORDERS FROM [facility]. EVERYTHING WAS CORRECT AND NO CHANGES WERE MADE.
--- NOTE | 2019-04-13 15:00 | ST Dysphagia Evaluation ---
Speech Evaluation-General Medical Diagnosis COPD, Respiratory Failure Onset Date: Apr 11, 2019 Therapy Diagnosis Therapy Diagnosis: Oropharyngeal Dysphagia Precautions Precautions: Aspiration Precautions/Isolations: Aspiration, Fall Prevention, Standard Precautions, Pressure Ulcer Medical History Pertinent Medical History: COPD, GERD, HTN, Smoking Reviewed History: Yes Social History [facility] Speech PLF/Current-Dysphagia Prior Level of Function The patient lives in the [place] [facility]. He is independent for some of his daily needs with assistance for the others. Subjective The patient was cooperative with the Bedside Dysphagia Evaluation (BDE). Cognitive Status Patient Orientation: Person, Place, Situation Oral Motor Skills Dentition: Edentalous Ability to Follow Directions: Good Patient has mild cognitive deficits. Oral Expression Ability: No Impairment Voice Voice Phonatory-Based Quality: Normal Voice Pitch: Normal Voice Loudness: Normal Face Facial Symmetry: Symmetrical Oral-Facial Assessment Oral-Facial Dentition: Normal Labial Seal Description: Weak Smile: Poor Coordination Puff Cheeks: Normal Lingual Protrusion: Normal Lingual ROM: Normal Lingual Strength: Normal Pharynx Velopharyngeal Move.: Normal Volitional Dry Swallow: Yes Voluntary Cough: Yes Can Clear Throat Volitionally: Yes Dysphagia Evaluation Consistencies Presented: Thin Liquid, Mechanical Soft, Pureed Patient exhibits normal oral stage function for oral intake. Patient exhibits normal pharyngeal stage function for oral intake. Patient has a history of eating too fast and requires verbal cues to slow down. Dietary Recommendations: Mechanical Soft Liquid Recommendations: Thin Swallowing Precautions: Alternate Liquids/Solids, Double Swallow, Decreased Bolus 1/2 Tsp, Liquids from Straw, Small Bites and Sips, Sitting Upright 90 Degrees, Sitting 90 Degrees 30 Post Intake Dysphagia Evaluation Summary The patient is known to me due to multiple hospital admissions secondary to respiratory failure. The patient is a 59 year old male who presents from the [place] [facility]. He is independent for some of his daily needs with assistance for the others. He was evaluated with BDE given thin liquids at 1/2 tsp. presentations x2 with normal function, a small sip via straw of thin with normal function. No coughing noted post intake. He was presented 1/2 tsp. puree x2 without difficulty. Also presented was 1/2 tsp. bite size mechanical soft with out difficulty. Regular consistency was not presented due to patient being edentulous. Diet recommendations for Dysphagia II and thin liquids were given to his nurse and written on the white board in his room as well. Barriers to Learning Patient has some mild cognitive deficits. Speech Short Term Goals Short Term Goals Short Term Goals 1) The patient will tolerate least restrictive diet level without s/s of aspiration at 90% or greater given minimal cues. 2) The patient will utilize compensatory strategies as trained with 90% or greater given minimal cues. 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 Speech-Plan Patient/Family Goals Patient/Family Goals: The patient will return to the [place] [facility] upon hospital discharge. Treatment Plan Speech Therapy Treatment Plan: Continue Plan of Care The patient will receive skilled dysphagia therapy. Treatment Duration: Apr 13, 2019 Frequency: 2 times per week Estimated Hrs Per Day: .25 hour per day Rehab Potential: Fair Barriers to Learning: Patient has some mild cognitive deficits. Pt/Family Agrees to Plan: Yes Safety Risks/Education Teaching Recipient: Patient Teaching Methods: Discussion Response to Teaching: Verbalize Understanding Education Topics Provided: Safety of oral intake including slower rate of intake. Time Speech Therapy Time In: 12:45 Speech Therapy Time Out: 13:00 Total Billed Time: 15 Billed Treatment Time [address] Apr 13, 2019 15:00
[2019-04-13] MEDS ORDERED: inSUlin ASPART (NovoLOG) 1 UNIT/0.01 ML (CHARGE PER UNIT) ONE (23:39)
[2019-04-13] MEDS: inSUlin ASPART (NovoLOG) 1 UNIT/0.01 ML (CHARGE PER UNIT) SQ SCH (23:46)
[2019-04-14] VITALS (11 sets, daily range): BP systolic 131–191; BP diastolic 68–95
[2019-04-14] MEDS: RT-ALBUTEROL/IPRATROPIUM 3 ML (DUONEB) VIAL IH SCH ×6 (02:30→23:25)
[2019-04-14 03:30] LABS: BASOPHILS # (AUTO) 0.2 10^3/uL (0.0-0.1); BASOPHILS % (AUTO) 1 % (0-10); EOSINOPHILS % (AUTO) 0 % (0-10); HEMATOCRIT 44 % (40-54); HEMOGLOBIN 14.3 G/DL (13.3-17.7); LYMPHOCYTES # (AUTO) 1.7 X 10^3 (1.0-4.0); LYMPHOCYTES % (AUTO) 9 % (12-44); MEAN CORPUSCULAR HEMOGLOBIN 27 PG (25-34); MEAN CORPUSCULAR HGB CONC 32 G/DL (32-36); MEAN CORPUSCULAR VOLUME 84 FL (80-99); MEAN PLATELET VOLUME 11.4 FL (7.4-10.4); MONOCYTES # (AUTO) 1.7 X 10^3 (0.0-1.0); MONOCYTES % (AUTO) 9 % (0-12); NEUTROPHILS % (AUTO) 81 % (42-75); PLATELET COUNT 134 10^3/uL (130-400); WHITE BLOOD COUNT 18.6 10^3/uL (4.3-11.0)
[2019-04-14 03:45] LABS: BUN/CREATININE RATIO 30; CALCIUM 8.9 MG/DL (8.5-10.1); CARBON DIOXIDE 28 MMOL/L (21-32); CHLORIDE 103 MMOL/L (98-107); CREATININE SERUM 0.88 MG/DL (0.60-1.30); GFR ESTIMATED > 60; GLUCOSE 148 MG/DL (70-105); MAGNESIUM 2.3 MG/DL (1.8-2.4); PHOSPHORUS 3.9 MG/DL (2.3-4.7); POTASSIUM 4.1 MMOL/L (3.6-5.0); SODIUM 143 MMOL/L (135-145)
[2019-04-14 04:27] LABS: ATYPICAL LYMPHOCYTES 6 %; LYMPHOCYTES % (MANUAL) 17 %; MONOCYTES % (MANUAL) 4 %; NEUTROPHILS % (MANUAL) 73 %
[2019-04-14] MEDS: MAGNESIUM 1 GM/100 ML IVPB 100 ML IV SCH (05:07)
[2019-04-14] MEDS: POTASSIUM CL 10MEQ/50ML IVPB 50 ML IV SCH (05:07)
[2019-04-14] MEDS: methylPREDNISolone 40 MG/ML (Solu-MEDROL) VIAL IV SCH ×3 (05:41→21:35)
[2019-04-14] MEDS: PIPERACILLIN/TAZO 4.5 GM/NS 100 ML IV SCH ×6 (05:41→21:38)
--- NOTE | 2019-04-14 05:50 | Pulmonary Progress Note ---
Subjective Time Seen by a Provider: 11:45 Subjective/Events-last exam C/o SOB Sepsis Event Evaluation Height, Weight, BMI Height: 5'5.00" Weight: 203lbs. 7.0oz. 92.078754zu; 33.3 BMI Method:Stated Exam Exam Vital Signs Date Time Temp Pulse Resp B/P (MAP) Pulse Ox O2 Delivery O2 Flow Rate FiO2 04/14/19 05:00 56 21 158/86 (110) 95 Vapotherm 60.00 25.00 04/14/19 04:00 98.0 04/14/19 04:00 97 Vapotherm 30.00 65 04/14/19 04:00 60 25 155/82 (106) 97 Vapotherm 60.00 25.00 04/14/19 03:42 Vapotherm 60.00 25.00 04/14/19 03:00 54 28 174/83 (113) 99 Vapotherm 65.00 30.00 04/14/19 02:30 96 Vapotherm 25.00 60 04/14/19 02:00 60 24 161/84 (109) 97 Vapotherm 65.00 30.00 04/14/19 01:00 67 23 150/78 (102) 96 Vapotherm 65.00 30.00 04/14/19 01:00 68 04/14/19 00:00 97 Vapotherm 30.00 65 04/14/19 00:00 97 21 137/95 (109) 92 Vapotherm 65.00 30.00 04/13/19 23:40 97.8 04/13/19 23:00 66 27 158/74 (102) 95 Vapotherm 65.00 30.00 04/13/19 22:00 68 28 151/79 (103) 97 Vapotherm 65.00 30.00 04/13/19 21:30 97 Vapotherm 30.00 65 04/13/19 21:30 Vapotherm 65.00 30.00 04/13/19 21:00 80 22 148/77 (100) 97 Vapotherm 70.00 30.00 04/13/19 20:00 98.4 04/13/19 20:00 79 20 149/75 (99) 97 Vapotherm 70.00 30.00 04/13/19 20:00 97 Vapotherm 30.00 70 04/13/19 19:00 64 04/13/19 19:00 98.4 04/13/19 19:00 98.4 93 20 151/70 (97) 93 Vapotherm 70.00 30.00 04/13/19 18:50 97 Vapotherm 30.00 70 04/13/19 18:00 69 22 141/73 (95) 97 NIV Bilevel 25.00 04/13/19 17:00 78 11 144/68 (93) 95 NIV Bilevel 25.00 04/13/19 16:00 98.4 04/13/19 16:00 80 26 145/73 (97) 94 NIV Bilevel 25.00 04/13/19 15:35 Vapotherm 30.00 80 04/13/19 15:00 84 16 144/69 (94) 94 NIV Bilevel 25.00 04/13/19 14:00 64 27 150/65 (93) 96 NIV Bilevel 25.00 04/13/19 13:00 72 04/13/19 13:00 87 16 173/89 (117) 85 NIV Bilevel 25.00 04/13/19 12:00 Vapotherm 30.00 80 04/13/19 12:00 98.8 04/13/19 12:00 82 25 178/88 (118) 92 NIV Bilevel 25.00 04/13/19 11:20 94 Vapotherm 40.00 80 04/13/19 11:00 65 15 138/105 (116) 96 NIV Bilevel 25.00 04/13/19 10:00 67 44 164/82 (109) 96 NIV Bilevel 25.00 04/13/19 09:00 68 16 149/86 (107) 97 NIV Bilevel 25.00 04/13/19 08:00 Vapotherm 40.00 80 04/13/19 08:00 85 49 163/95 (117) 97 NIV Bilevel 25.00 04/13/19 07:47 96 Vapotherm 40.00 80 04/13/19 07:00 81 04/13/19 07:00 65 17 152/79 (103) 92 NIV Bilevel 25.00 04/13/19 06:00 64 15 177/93 (121) 95 NIV Bilevel 25.00 I & O 04/14/19 07:00 Intake Total 1060 ml Output Total 5250 ml Balance -4190 ml Height & Weight Height: 5'5.00" Weight: 203lbs. 7.0oz. 92.521462ks; 33.3 BMI Method:Stated General Appearance: No Apparent Distress, WD/WN HEENT: Normal ENT Inspection Neck: Full Range of Motion, Normal Inspection Respiratory: No Accessory Muscle Use, No Respiratory Distress, Decreased Breath Sounds Cardiovascular: Regular Rate, Rhythm, No Murmur Capillary Refill: Less Than 3 Seconds Gastrointestinal: non tender, soft Extremity: Normal Capillary Refill, Normal Inspection, No Pedal Edema Neurologic/Psychiatric: Alert, Oriented x3 Skin: Normal Color, Warm/Dry Lymphatic: No Adenopathy Results Lab Laboratory Tests 04/13/19 03:24 04/14/19 03:10 Assessment/Plan Assessment/Plan Acute on chronic respiratory failure -Continue BiPAP/Vapotherm -Repeat ABG this AM -Monitor close Aspiration PNA - present on admission. Then pt aspirated on water during ICU stay. -Consult Speech-- pt is now on a dysphagia diet -Zosyn-- D/C Vanco COPDAE -SVNS -Solumedrol Hypernatremia -SL IVF -GIve 40 KCL PNA RLL vs pulmonary congestion -Contine Abx -I suspect more pulmonary edema s/p lasix in ED. Morbid obesity KEYONA EVANS DO Apr 14, 2019 05:50
[2019-04-14 06:03] LABS: ABG BASE EXCESS 7.8 MMOL/L (-2.5-2.5); ABG OXYGEN SATURATION 97 % (94-100); ABG PCO2 54 MMHG (35-45); ABG PO2 83 MMHG (79-93); ABG TCO2 34.4 MMOL/L (21.0-31.0)
[2019-04-14] MEDS: KCL 20 MEQ TAB (K-DUR) PO SCH (06:03)
[2019-04-14] MEDS: inSUlin ASPART (NovoLOG) 1 UNIT/0.01 ML (CHARGE PER UNIT) SQ SCH ×3 (06:03→18:07)
[2019-04-14 06:07] LABS: ALLENS TEST POSITIVE; INSPIRED O2 25L/60% VAPO; VENTILATOR YES
--- NOTE | 2019-04-14 07:07 | Progress Note (SOAP) ---
Subjective Time Seen by a Provider: 07:04 Subjective/Events-last exam Better today. Patient on Vapotherm. No White blood cell count 18,600 platelet 134. BNP 663. Chest x-ray yesterday shows cardiomegaly and pulmonary vascular congestion Objective Exam Vital Signs Date Time Temp Pulse Resp B/P (MAP) Pulse Ox O2 Delivery O2 Flow Rate FiO2 04/14/19 06:00 60 22 159/77 (104) 97 Vapotherm 60.00 25.00 04/14/19 05:00 56 21 158/86 (110) 95 Vapotherm 60.00 25.00 04/14/19 04:00 98.0 04/14/19 04:00 97 Vapotherm 30.00 65 04/14/19 04:00 60 25 155/82 (106) 97 Vapotherm 60.00 25.00 04/14/19 03:42 Vapotherm 60.00 25.00 04/14/19 03:00 54 28 174/83 (113) 99 Vapotherm 65.00 30.00 04/14/19 02:30 96 Vapotherm 25.00 60 04/14/19 02:00 60 24 161/84 (109) 97 Vapotherm 65.00 30.00 04/14/19 01:00 67 23 150/78 (102) 96 Vapotherm 65.00 30.00 04/14/19 01:00 68 04/14/19 00:00 97 Vapotherm 30.00 65 04/14/19 00:00 97 21 137/95 (109) 92 Vapotherm 65.00 30.00 04/13/19 23:40 97.8 04/13/19 23:00 66 27 158/74 (102) 95 Vapotherm 65.00 30.00 04/13/19 22:00 68 28 151/79 (103) 97 Vapotherm 65.00 30.00 04/13/19 21:30 97 Vapotherm 30.00 65 04/13/19 21:30 Vapotherm 65.00 30.00 04/13/19 21:00 80 22 148/77 (100) 97 Vapotherm 70.00 30.00 04/13/19 20:00 98.4 04/13/19 20:00 79 20 149/75 (99) 97 Vapotherm 70.00 30.00 04/13/19 20:00 97 Vapotherm 30.00 70 04/13/19 19:00 64 04/13/19 19:00 98.4 04/13/19 19:00 98.4 93 20 151/70 (97) 93 Vapotherm 70.00 30.00 04/13/19 18:50 97 Vapotherm 30.00 70 04/13/19 18:00 69 22 141/73 (95) 97 NIV Bilevel 25.00 04/13/19 17:00 78 11 144/68 (93) 95 NIV Bilevel 25.00 04/13/19 16:00 98.4 04/13/19 16:00 80 26 145/73 (97) 94 NIV Bilevel 25.00 04/13/19 15:35 Vapotherm 30.00 80 04/13/19 15:00 84 16 144/69 (94) 94 NIV Bilevel 25.00 04/13/19 14:00 64 27 150/65 (93) 96 NIV Bilevel 25.00 04/13/19 13:00 72 04/13/19 13:00 87 16 173/89 (117) 85 NIV Bilevel 25.00 04/13/19 12:00 Vapotherm 30.00 80 04/13/19 12:00 98.8 04/13/19 12:00 82 25 178/88 (118) 92 NIV Bilevel 25.00 04/13/19 11:20 94 Vapotherm 40.00 80 04/13/19 11:00 65 15 138/105 (116) 96 NIV Bilevel 25.00 04/13/19 10:00 67 44 164/82 (109) 96 NIV Bilevel 25.00 04/13/19 09:00 68 16 149/86 (107) 97 NIV Bilevel 25.00 04/13/19 08:00 Vapotherm 40.00 80 04/13/19 08:00 85 49 163/95 (117) 97 NIV Bilevel 25.00 04/13/19 07:47 96 Vapotherm 40.00 80 I & O 04/14/19 07:00 Intake Total 1060 ml Output Total 5550 ml Balance -4490 ml Capillary Refill : Less Than 3 SecondsLess Than 3 Seconds General Appearance: No Apparent Distress, WD/WN HEENT: Normal ENT Inspection Neck: Full Range of Motion, Normal Inspection Respiratory: No Accessory Muscle Use, No Respiratory Distress, Decreased Breath Sounds Cardiovascular: Regular Rate, Rhythm, No Murmur Gastrointestinal: non tender, soft Results Lab Laboratory Tests 04/14/19 03:10 Laboratory Tests 04/13/19 12:00: Glucometer 127H 04/13/19 18:07: Glucometer 114H 04/13/19 23:38: Glucometer 189H 04/14/19 03:10: White Blood Count 18.6H, Red Blood Count 5.30, Hemoglobin 14.3, Hematocrit 44, Mean Corpuscular Volume 84, Mean Corpuscular Hemoglobin 27, Mean Corpuscular Hemoglobin Concent 32, Red Cell Distribution Width 19.0H, Platelet Count 134, Mean Platelet Volume 11.4H, Neutrophils (%) (Auto) 81H, Lymphocytes (%) (Auto) 9L, Monocytes (%) (Auto) 9, Eosinophils (%) (Auto) 0, Basophils (%) (Auto) 1, Neutrophils # (Auto) 15.0H, Lymphocytes # (Auto) 1.7, Monocytes # (Auto) 1.7H, Eosinophils # (Auto) 0.0, Basophils # (Auto) 0.2H, Neutrophils % (Manual) 73, Lymphocytes % (Manual) 17, Monocytes % (Manual) 4, Atypical Lymphocytes 6, Sodium Level 143, Potassium Level 4.1, Chloride Level 103, Carbon Dioxide Level 28, Anion Gap 12, Blood Urea Nitrogen 26H, Creatinine 0.88, Estimat Glomerular Filtration Rate > 60, BUN/Creatinine Ratio 30, Glucose Level 148H, Calcium Level 8.9, Phosphorus Level 3.9, Magnesium Level 2.3, B-Type Natriuretic Peptide 663.8H 04/14/19 05:57: Blood Gas Puncture Site LEFT RADIAL, Blood Gas Patient Temperature 98.0, Arterial Blood pH 7.40, Arterial Blood Partial Pressure CO2 54H, Arterial Blood Partial Pressure O2 83, Arterial Blood HCO3 33H, Arterial Blood Total CO2 34.4H, Arterial Blood Oxygen Saturation 97, Arterial Blood Base Excess 7.8H, Jeff Test POSITIVE, Blood Gas Ventilator Setting YES, Blood Gas Inspired Oxygen 25L/60% VAPO Microbiology 04/10/19 Blood Culture - Preliminary, Resulted No growth 04/10/19 MRSA Screen - Final, Complete MRSA not isolated 04/10/19 Urine Culture - Final, Complete NO GROWTH Assessment/Plan Assessment/Plan Assess & Plan/Chief Complaint respiratory failure. Hypoxia. COPD with acute exacerbation. Right lower lobe pneumonia. Aspiration pneumonia. Patient on Vapotherm chronic water and aspirated and put back on BiPAP. . 04/14/19. Acute respiratory failure resolved. Hypoxia. COPD with acute exacerbation. Right lower lobe pneumonia. Aspiration. Patient on Vapotherm her Patient on dysphagia type II diet Clinical Quality Measures DVT/VTE Risk/Contraindication: Risk Factor Score Per Nursin RFS Level Per Nursing on Admit: 4+=Very High ART CASANOVA DO Apr 14, 2019 07:07
[2019-04-14] MEDS ORDERED: FUROSEMIDE 40 MG/4 ML INJ (LASIX) IVP ONE (07:15)
--- NOTE | 2019-04-14 08:10 | NUR ---
REPORT RECEIVED VIA TELEPHONE FROM SHUKRI MARTIN.
--- NOTE | 2019-04-14 08:19 | Diagnostic Imaging Report ---
INDICATION: Respiratory failure, dyspnea. TECHNIQUE: Single view chest 4:14 AM. CORRELATION STUDY: 04/13/2019 FINDINGS: Heart size, mediastinum and vasculature appearing perhaps slightly less congested. Chronic appearing change about the lung parenchyma. No definitive infiltrate. Old healed right posterior rib fractures. Likely trace right pleural effusion. IMPRESSION: 1. Perhaps slightly less pulmonary vascular congestion from prior. Dictated by: Dictated on workstation # [id number]
--- NOTE | 2019-04-14 08:54 | NUR ---
Pt transferred to 4th floor via wheelchair
--- NOTE | 2019-04-14 09:00 | NUR ---
LUIS MANUEL RETANA Lashon admitted to room CU8-1, with an admitting diagnosis of RESPIRATORY FAILURE, COPD, AND PNEUMONIA, on 04/10/19 from ICU via WHEELCHAIR, accompanied by PRODUCT LISTER AND RT. LUIS MANUEL RETANA introduced to surroundings, call light, bed controls, phone, TV, temperature control, lights, meal times, smoking policy, visitor policy, side rail policy, bathrooms and showers. Patient Rights given to patient in the handbook. LUIS MANUEL RETANA verbalizes understanding that [facility] is not responsible for the loss or damage to any personal effects or valuables that are kept in the patients posession during their hospitalization. LUIS MANUEL RETANA verbalizes understanding of Interdisciplinary Patient Education. Patient and/or family were informed about the Rapid Response Team and its purpose. PATIENT STABLE ON VAPOTHERM WITH RT PRESENT. NO FURTHER NEEDS AT THIS TIME.
[2019-04-14] MEDS ORDERED: NON-FORMULARY MEDICATION 1 EA EA (Carboxymethylcellulose Sodium (Refresh Tears) 1 DROP) OU PRN (13:00)
[2019-04-14] MEDS ORDERED: ARTIFICAL TEARS 0.4 ML UNIT DOSE (REFRESH PLUS) OU PRN (13:15)
[2019-04-14] MEDS: ACETAMINOPHEN 500 MG TAB (TYLENOL) PO PRN (13:20)
[2019-04-15] VITALS: BP 163/78
[2019-04-15] MEDS: inSUlin ASPART (NovoLOG) 1 UNIT/0.01 ML (CHARGE PER UNIT) SQ SCH ×4 (02:47→17:57)
[2019-04-15] MEDS: RT-ALBUTEROL/IPRATROPIUM 3 ML (DUONEB) VIAL IH SCH ×6 (03:35→22:48)
[2019-04-15 03:38] LABS: BASOPHILS # (AUTO) 0.1 10^3/uL (0.0-0.1); BASOPHILS % (AUTO) 1 % (0-10); EOSINOPHILS % (AUTO) 0 % (0-10); HEMATOCRIT 45 % (40-54); HEMOGLOBIN 14.7 G/DL (13.3-17.7); LYMPHOCYTES % (AUTO) 16 % (12-44); MEAN CORPUSCULAR HEMOGLOBIN 27 PG (25-34); MEAN CORPUSCULAR HGB CONC 33 G/DL (32-36); MEAN CORPUSCULAR VOLUME 81 FL (80-99); MEAN PLATELET VOLUME 10.6 FL (7.4-10.4); MONOCYTES # (AUTO) 2.3 X 10^3 (0.0-1.0); MONOCYTES % (AUTO) 12 % (0-12); NEUTROPHILS # (AUTO) 13.2 X 10^3 (1.8-7.8); NEUTROPHILS % (AUTO) 71 % (42-75); PLATELET COUNT 131 10^3/uL (130-400); RED CELL DISTRIBUTION WIDTH 18.7 % (10.0-14.5); WHITE BLOOD COUNT 18.6 10^3/uL (4.3-11.0)
[2019-04-15 03:55] LABS: BUN/CREATININE RATIO 23; CALCIUM 8.5 MG/DL (8.5-10.1); CARBON DIOXIDE 32 MMOL/L (21-32); CHLORIDE 97 MMOL/L (98-107); CREATININE SERUM 0.79 MG/DL (0.60-1.30); GFR ESTIMATED > 60; GLUCOSE 129 MG/DL (70-105); MAGNESIUM 2.1 MG/DL (1.8-2.4); PHOSPHORUS 3.6 MG/DL (2.3-4.7); POTASSIUM 3.6 MMOL/L (3.6-5.0); SODIUM 140 MMOL/L (135-145)
[2019-04-15 04:00] VITALS: BP 181/91
[2019-04-15] MEDS: ACETAMINOPHEN 500 MG TAB (TYLENOL) PO PRN ×2 (05:22→11:38)
[2019-04-15] MEDS: PIPERACILLIN/TAZO 4.5 GM/NS 100 ML IV SCH ×6 (05:22→21:39)
[2019-04-15 08:00] VITALS: BP 161/84
--- NOTE | 2019-04-15 08:03 | Pulmonary Progress Note ---
Subjective Time Seen by a Provider: 11:42 Subjective/Events-last exam pt is improving with less SOB. Sepsis Event Evaluation Height, Weight, BMI Height: 5'5.00" Weight: 203lbs. 7.0oz. 92.160404kh; 33.3 BMI Method:Stated Exam Exam Vital Signs Date Time Temp Pulse Resp B/P (MAP) Pulse Ox O2 Delivery O2 Flow Rate FiO2 04/15/19 04:00 97.9 64 18 181/91 (121) 92 Vapotherm 35.00 25.00 04/15/19 03:35 92 Vapotherm 20.00 35 04/15/19 00:00 98.4 66 18 163/78 (106) 92 Vapotherm 35.00 25.00 04/14/19 23:25 95 Vapotherm 20.00 35 04/14/19 21:00 95 Vapotherm 25.00 04/14/19 20:30 97.6 87 20 131/68 (89) 95 Vapotherm 35.00 25.00 04/14/19 18:45 97 Vapotherm 25.00 35 04/14/19 15:56 98.0 62 20 153/74 (100) 95 Vapotherm 40.00 25.00 04/14/19 15:25 96 Vapotherm 25.00 40 04/14/19 12:00 97.5 72 20 141/68 (92) 94 Vapotherm 04/14/19 11:55 98 Vapotherm 25.00 60 04/14/19 09:00 Vapotherm 25.00 60 04/14/19 09:00 97.8 63 20 191/79 (116) 98 Vapotherm 60.00 25.00 I & O 04/15/19 07:00 Intake Total 2260 ml Output Total 4300 ml Balance -2040 ml Height & Weight Height: 5'5.00" Weight: 203lbs. 7.0oz. 92.991587vk; 33.3 BMI Method:Stated General Appearance: No Apparent Distress, WD/WN HEENT: Normal ENT Inspection Neck: Full Range of Motion, Normal Inspection Respiratory: No Accessory Muscle Use, No Respiratory Distress, Decreased Breath Sounds Cardiovascular: Regular Rate, Rhythm, No Murmur Capillary Refill: Less Than 3 Seconds Gastrointestinal: non tender, soft Extremity: Normal Capillary Refill, Normal Inspection, No Pedal Edema Neurologic/Psychiatric: Alert, Oriented x3 Skin: Normal Color, Warm/Dry Lymphatic: No Adenopathy Results Lab Laboratory Tests 04/14/19 03:10 04/15/19 03:25 Assessment/Plan Assessment/Plan Acute on chronic respiratory failure -Continue BiPAP/Vapotherm -Repeat ABG this AM -Monitor close Aspiration PNA - present on admission. -Zosyn-- D/C Vanco COPDAE -SVNS -Solumedrol Hypernatremia -SL IVF -GIve 40 KCL PNA RLL vs pulmonary congestion -Contine Abx -I suspect more pulmonary edema s/p lasix in ED. Morbid obesity KEYONA EVANS DO Apr 15, 2019 08:03
--- NOTE | 2019-04-15 08:24 | Progress Note (SOAP) ---
Subjective Time Seen by a Provider: 08:22 Subjective/Events-last exam Patient still on Vapotherm. Patient continues to improve. Objective Exam Vital Signs Date Time Temp Pulse Resp B/P (MAP) Pulse Ox O2 Delivery O2 Flow Rate FiO2 04/15/19 04:00 97.9 64 18 181/91 (121) 92 Vapotherm 35.00 25.00 04/15/19 03:35 92 Vapotherm 20.00 35 04/15/19 00:00 98.4 66 18 163/78 (106) 92 Vapotherm 35.00 25.00 04/14/19 23:25 95 Vapotherm 20.00 35 04/14/19 21:00 95 Vapotherm 25.00 04/14/19 20:30 97.6 87 20 131/68 (89) 95 Vapotherm 35.00 25.00 04/14/19 18:45 97 Vapotherm 25.00 35 04/14/19 15:56 98.0 62 20 153/74 (100) 95 Vapotherm 40.00 25.00 04/14/19 15:25 96 Vapotherm 25.00 40 04/14/19 12:00 97.5 72 20 141/68 (92) 94 Vapotherm 04/14/19 11:55 98 Vapotherm 25.00 60 04/14/19 09:00 Vapotherm 25.00 60 04/14/19 09:00 97.8 63 20 191/79 (116) 98 Vapotherm 60.00 25.00 I & O 04/15/19 07:00 Intake Total 2260 ml Output Total 4300 ml Balance -2040 ml Capillary Refill : Less Than 3 SecondsLess Than 3 Seconds General Appearance: No Apparent Distress, WD/WN HEENT: Normal ENT Inspection Neck: Full Range of Motion Respiratory: No Accessory Muscle Use, No Respiratory Distress, Decreased Breath Sounds Gastrointestinal: non tender, soft Results Lab Laboratory Tests 04/15/19 03:25 Laboratory Tests 04/14/19 11:23: Glucometer 171H 04/14/19 18:04: Glucometer 139H 04/15/19 01:39: Glucometer 122H 04/15/19 03:25: White Blood Count 18.6H, Red Blood Count 5.49, Hemoglobin 14.7, Hematocrit 45, Mean Corpuscular Volume 81, Mean Corpuscular Hemoglobin 27, Mean Corpuscular Hemoglobin Concent 33, Red Cell Distribution Width 18.7H, Platelet Count 131, Mean Platelet Volume 10.6H, Neutrophils (%) (Auto) 71, Lymphocytes (%) (Auto) 16, Monocytes (%) (Auto) 12, Eosinophils (%) (Auto) 0, Basophils (%) (Auto) 1, Neutrophils # (Auto) 13.2H, Lymphocytes # (Auto) 3.0, Monocytes # (Auto) 2.3H, Eosinophils # (Auto) 0.0, Basophils # (Auto) 0.1, Sodium Level 140, Potassium Level 3.6, Chloride Level 97L, Carbon Dioxide Level 32, Anion Gap 11, Blood Urea Nitrogen 18, Creatinine 0.79, Estimat Glomerular Filtration Rate > 60, BUN/Creatinine Ratio 23, Glucose Level 129H, Calcium Level 8.5, Phosphorus Level 3.6, Magnesium Level 2.1 04/15/19 05:19: Glucometer 111H Microbiology 04/10/19 Blood Culture - Preliminary, Resulted No growth 04/10/19 MRSA Screen - Final, Complete MRSA not isolated 04/10/19 Urine Culture - Final, Complete NO GROWTH Assessment/Plan Assessment/Plan Assess & Plan/Chief Complaint respiratory failure. Hypoxia. COPD with acute exacerbation. Right lower lobe pneumonia. Aspiration pneumonia. Patient on Vapotherm chronic water and aspirated and put back on BiPAP. . 04/14/19. Acute respiratory failure resolved. Hypoxia. COPD with acute exacerbation. Right lower lobe pneumonia. Aspiration. Patient on Vapotherm her Patient on dysphagia type II diet. . 6 acute and chronic respiratory failure. Aspiration pneumonia. COPD. Hypoxia. Clinical Quality Measures DVT/VTE Risk/Contraindication: Risk Factor Score Per Nursin RFS Level Per Nursing on Admit: 4+=Very High ART CASANOVA DO Apr 15, 2019 08:24
[2019-04-15] MEDS: methylPREDNISolone 40 MG/ML (Solu-MEDROL) VIAL IV SCH (08:57)
--- NOTE | 2019-04-15 11:54 | Diagnostic Imaging Report ---
INDICATION: Shortness of breath. TIME OF EXAM: 11:25 AM COMPARISON: Correlation is made with prior study one day earlier. FINDINGS: Heart size is stable. Lungs appear to be fairly clear. No infiltrate or failure is seen. No effusion or pneumothorax is detected. IMPRESSION: Stable chest. No acute feature is detected. Dictated by: Dictated on workstation # [id number]
[2019-04-15 12:00] VITALS: BP 156/81
[2019-04-15 16:24] VITALS: BP 145/72
[2019-04-15 20:01] VITALS: BP 167/76
[2019-04-16] VITALS: BP 183/81
[2019-04-16] MEDS: inSUlin ASPART (NovoLOG) 1 UNIT/0.01 ML (CHARGE PER UNIT) SQ SCH ×4 (00:20→18:24)
[2019-04-16] MEDS: RT-ALBUTEROL/IPRATROPIUM 3 ML (DUONEB) VIAL IH SCH ×6 (02:34→22:24)
[2019-04-16 04:31] VITALS: BP 180/84
[2019-04-16] MEDS: PIPERACILLIN/TAZO 4.5 GM/NS 100 ML IV SCH ×6 (06:04→21:16)
[2019-04-16 08:00] VITALS: BP 146/66
--- NOTE | 2019-04-16 08:04 | Progress Note (SOAP) ---
Subjective Time Seen by a Provider: 08:02 Subjective/Events-last exam Patient feeling better today. Blood pressure the last day elevated. Patient put on lisinopril. To monitor blood pressure. Nurse to call at 11 a.m. Objective Exam Vital Signs Date Time Temp Pulse Resp B/P (MAP) Pulse Ox O2 Delivery O2 Flow Rate FiO2 04/16/19 04:31 98.0 62 20 180/84 (116) 97 High Flow N/C 5.00 04/16/19 02:34 96 Vapotherm 15.00 35 04/16/19 00:00 97.2 58 18 183/81 (115) 95 Vapotherm 35.00 15.00 04/15/19 22:48 95 Vapotherm 15.00 35 04/15/19 21:00 Vapotherm 15.00 35 04/15/19 20:01 98.2 63 20 167/76 (106) 93 Vapotherm 35.00 15.00 04/15/19 19:31 92 Vapotherm 15.00 35 04/15/19 16:24 97.1 60 22 145/72 (96) 94 Vapotherm 35.00 15.00 04/15/19 15:51 97 Vapotherm 20.00 35 04/15/19 12:34 91 Vapotherm 20.00 35 04/15/19 12:00 98.2 71 18 156/81 (106) 92 Vapotherm 35.00 25.00 04/15/19 09:00 Vapotherm 25.00 35 I & O 04/16/19 07:00 Intake Total 3420 ml Output Total 4450 ml Balance -1030 ml Capillary Refill : Less Than 3 SecondsLess Than 3 Seconds General Appearance: No Apparent Distress, WD/WN HEENT: Normal ENT Inspection Neck: Full Range of Motion, Normal Inspection Respiratory: No Accessory Muscle Use, No Respiratory Distress, Decreased Breath Sounds Cardiovascular: Regular Rate, Rhythm, No Murmur Gastrointestinal: non tender, soft Results Lab Laboratory Tests 04/15/19 11:41: Glucometer 234H 04/15/19 17:55: Glucometer 122H 04/16/19 00:15: Glucometer 98 04/16/19 05:55: Glucometer 101 Microbiology 04/10/19 Blood Culture - Final, Complete No growth 04/10/19 MRSA Screen - Final, Complete MRSA not isolated 04/10/19 Urine Culture - Final, Complete NO GROWTH Assessment/Plan Assessment/Plan Assess & Plan/Chief Complaint respiratory failure. Hypoxia. COPD with acute exacerbation. Right lower lobe pneumonia. Aspiration pneumonia. Patient on Vapotherm chronic water and aspirated and put back on BiPAP. . 04/14/19. Acute respiratory failure resolved. Hypoxia. COPD with acute exacerbation. Right lower lobe pneumonia. Aspiration. Patient on Vapotherm her Patient on dysphagia type II diet. . acute and chronic respiratory failure. Aspiration pneumonia. COPD. Hypoxia.. . 04/16/19. Acute respiratory failure resolved. Hypoxia. COPD with acute exacerbation. Right lower lobe pneumonia. Aspiration. Hypertension malignant. Patient recently stopped smoking Clinical Quality Measures DVT/VTE Risk/Contraindication: Risk Factor Score Per Nursin RFS Level Per Nursing on Admit: 4+=Very High ART CASANOVA DO Apr 16, 2019 08:04
[2019-04-16] MEDS: methylPREDNISolone 40 MG/ML (Solu-MEDROL) VIAL IV SCH (09:49)
[2019-04-16] MEDS: lisINopril 10 MG (PRINIVIL) TABLET PO SCH (09:49)
--- NOTE | 2019-04-16 11:45 | Pulmonary Progress Note ---
Subjective Time Seen by a Provider: 11:42 Subjective/Events-last exam No complications noted. Sepsis Event Evaluation Height, Weight, BMI Height: 5'5.00" Weight: 203lbs. 7.0oz. 92.683788ly; 33.3 BMI Method:Stated Exam Exam Vital Signs Date Time Temp Pulse Resp B/P (MAP) Pulse Ox O2 Delivery O2 Flow Rate FiO2 04/16/19 11:32 95 High Flow N/C 5.00 04/16/19 09:00 92 High Flow N/C 5.00 04/16/19 08:16 92 High Flow N/C 5.00 04/16/19 08:00 98.2 82 18 146/66 (92) 93 High Flow N/C 5.00 04/16/19 04:31 98.0 62 20 180/84 (116) 97 High Flow N/C 5.00 04/16/19 02:34 96 Vapotherm 15.00 35 04/16/19 00:00 97.2 58 18 183/81 (115) 95 Vapotherm 35.00 15.00 04/15/19 22:48 95 Vapotherm 15.00 35 04/15/19 21:00 Vapotherm 15.00 35 04/15/19 20:01 98.2 63 20 167/76 (106) 93 Vapotherm 35.00 15.00 04/15/19 19:31 92 Vapotherm 15.00 35 04/15/19 16:24 97.1 60 22 145/72 (96) 94 Vapotherm 35.00 15.00 04/15/19 15:51 97 Vapotherm 20.00 35 04/15/19 12:34 91 Vapotherm 20.00 35 04/15/19 12:00 98.2 71 18 156/81 (106) 92 Vapotherm 35.00 25.00 I & O 04/16/19 07:00 Intake Total 3420 ml Output Total 4450 ml Balance -1030 ml Height & Weight Height: 5'5.00" Weight: 203lbs. 7.0oz. 92.842611px; 33.3 BMI Method:Stated General Appearance: No Apparent Distress, WD/WN HEENT: Normal ENT Inspection Neck: Full Range of Motion, Normal Inspection Respiratory: No Accessory Muscle Use, No Respiratory Distress, Decreased Breath Sounds Cardiovascular: Regular Rate, Rhythm, No Murmur Capillary Refill: Less Than 3 Seconds Gastrointestinal: non tender, soft Extremity: Normal Capillary Refill, Normal Inspection, No Pedal Edema Neurologic/Psychiatric: Alert, Oriented x3 Skin: Normal Color, Warm/Dry Lymphatic: No Adenopathy Results Lab Laboratory Tests 04/15/19 03:25 Assessment/Plan Assessment/Plan Acute on chronic respiratory failure -CXR improved Aspiration PNA - present on admission. -Zosyn - D/C Leukocytosis -secondary to steroids COPDAE -SVNS -prednisone taper PNA RLL vs pulmonary congestion Morbid obesity Pt is ok for discharge from pulmonary standpoint. KEYONA EVANS DO Apr 16, 2019 11:45
[2019-04-16 12:00] VITALS: BP 149/70
--- NOTE | 2019-04-16 15:30 | NUR ---
at 1132 patients O2 sat was 95% on 5 L Hifl so O2 was decreased to 3 L at that time at 1528 patients O2 sat was 94% on 3 L Hifl so O2 was decreased to 2 L at that time
[2019-04-16 16:13] VITALS: BP 138/87
[2019-04-16 19:45] VITALS: BP 146/76
[2019-04-17] VITALS: BP 146/75
[2019-04-17] MEDS: inSUlin ASPART (NovoLOG) 1 UNIT/0.01 ML (CHARGE PER UNIT) SQ SCH ×3 (00:29→13:08)
[2019-04-17] MEDS: RT-ALBUTEROL/IPRATROPIUM 3 ML (DUONEB) VIAL IH SCH ×3 (01:26→10:50)
[2019-04-17] MEDS: PIPERACILLIN/TAZO 4.5 GM/NS 100 ML IV SCH ×2 (05:12)
[2019-04-17 06:50] LABS: HEMOGLOBIN 15.3 G/DL (13.3-17.7); MEAN PLATELET VOLUME 10.5 FL (7.4-10.4); RED CELL DISTRIBUTION WIDTH 19.4 % (10.0-14.5); WHITE BLOOD COUNT 19.4 10^3/uL (4.3-11.0)
[2019-04-17 07:06] LABS: BUN/CREATININE RATIO 22; CALCIUM 8.5 MG/DL (8.5-10.1); CARBON DIOXIDE 28 MMOL/L (21-32); CHLORIDE 101 MMOL/L (98-107); CREATININE SERUM 0.79 MG/DL (0.60-1.30); GFR ESTIMATED > 60; GLUCOSE 100 MG/DL (70-105); POTASSIUM 3.6 MMOL/L (3.6-5.0); SODIUM 140 MMOL/L (135-145)
--- NOTE | 2019-04-17 07:45 | NUR ---
ESCOBEDO CATH REMOVED, AYO WELL, O2 ON 2 LITERS, DENIES SOB
[2019-04-17 08:00] VITALS: BP 114/63
--- NOTE | 2019-04-17 08:02 | Progress Note (SOAP) ---
Subjective Time Seen by a Provider: 07:59 Subjective/Events-last exam She doing better today. Patient to be discharged today. Patient on 1-2 L of nasal oxygen area Patient voices no complaints Objective Exam Vital Signs Date Time Temp Pulse Resp B/P (MAP) Pulse Ox O2 Delivery O2 Flow Rate FiO2 04/17/19 01:27 95 High Flow N/C 1.00 04/17/19 00:00 97.4 77 19 146/75 (98) 92 High Flow N/C 2.00 04/16/19 22:24 95 High Flow N/C 2.00 04/16/19 21:46 High Flow N/C 2.00 04/16/19 19:45 97.7 77 20 146/76 (99) 96 High Flow N/C 5.00 04/16/19 19:38 92 High Flow N/C 2.00 04/16/19 16:13 97.8 81 20 138/87 (104) 91 High Flow N/C 5.00 04/16/19 15:28 94 High Flow N/C 3.00 04/16/19 12:00 97.2 68 20 149/70 (96) 92 High Flow N/C 5.00 04/16/19 11:32 95 High Flow N/C 5.00 04/16/19 09:00 92 High Flow N/C 5.00 04/16/19 08:16 92 High Flow N/C 5.00 04/16/19 08:00 98.2 82 18 146/66 (92) 93 High Flow N/C 5.00 I & O 04/17/19 07:00 Intake Total 3100 ml Output Total 4925 ml Balance -1825 ml Capillary Refill : Less Than 3 SecondsLess Than 3 Seconds General Appearance: No Apparent Distress, WD/WN HEENT: Normal ENT Inspection Neck: Full Range of Motion, Normal Inspection Respiratory: No Accessory Muscle Use, No Respiratory Distress, Decreased Breath Sounds Cardiovascular: Regular Rate, Rhythm, No Murmur Gastrointestinal: non tender, soft Results Lab Laboratory Tests 04/17/19 06:10 Laboratory Tests 04/16/19 11:02: Glucometer 113H 04/16/19 17:30: Glucometer 140H 04/17/19 00:21: Glucometer 122H 04/17/19 05:45: Glucometer 102 04/17/19 06:10: White Blood Count 19.4H, Red Blood Count 5.81, Hemoglobin 15.3, Hematocrit 47, Mean Corpuscular Volume 81, Mean Corpuscular Hemoglobin 26, Mean Corpuscular Hemoglobin Concent 33, Red Cell Distribution Width 19.4H, Platelet Count 126L, Mean Platelet Volume 10.5H, Sodium Level 140, Potassium Level 3.6, Chloride Level 101, Carbon Dioxide Level 28, Anion Gap 11, Blood Urea Nitrogen 17, Creatinine 0.79, Estimat Glomerular Filtration Rate > 60, BUN/Creatinine Ratio 22, Glucose Level 100, Calcium Level 8.5 Microbiology 04/10/19 Blood Culture - Final, Complete No growth 04/10/19 MRSA Screen - Final, Complete MRSA not isolated 04/10/19 Urine Culture - Final, Complete NO GROWTH Assessment/Plan Assessment/Plan Assess & Plan/Chief Complaint respiratory failure. Hypoxia. COPD with acute exacerbation. Right lower lobe pneumonia. Aspiration pneumonia. Patient on Vapotherm chronic water and aspirated and put back on BiPAP. . 04/14/19. Acute respiratory failure resolved. Hypoxia. COPD with acute exacerbation. Right lower lobe pneumonia. Aspiration. Patient on Vapotherm her Patient on dysphagia type II diet. . acute and chronic respiratory failure. Aspiration pneumonia. COPD. Hypoxia.. . 04/16/19. Acute respiratory failure resolved. Hypoxia. COPD with acute exacerbation. Right lower lobe pneumonia. Aspiration. Hypertension malignant. Patient recently stopped smoking. . 04/17/19. Acute respiratory failure. Hypoxia COPD with acute exacerbation. Right lower lobe pneumonia. Aspiration. Hypertension. History of tobaccoism. Plan to discharge today to See in office next Saturday Clinical Quality Measures DVT/VTE Risk/Contraindication: Risk Factor Score Per Nursin RFS Level Per Nursing on Admit: 4+=Very High ART CASANOVA DO Apr 17, 2019 08:02
[2019-04-17] MEDS ORDERED: LISI10TA2 PO (08:05)
--- NOTE | 2019-04-17 08:07 | Discharge Inst-Skilled Nursing ---
Discharge Inst-Skilled NF Patient Instructions Patient Problems: COPD Consult/Follow Up/Orders Skilled NF Admit to: [facility] Certification (SNF) I certify that SNF services are required to be given on an inpatient basis because of the above named patient's need for senior living care on a continuing basis for the conditions(s) for which he/she was receiving inpatient hospital services prior to his/her transfer to the SNF. Oxygen Delivery Method: High Flow N/C Discharge Diet: Regular Diet New & Resume Previous Orders Abelino Casanova Apr 17, 2019 08:06 ABELINO CASANOVA DO Apr 17, 2019 08:07
[2019-04-17] MEDS: lisINopril 10 MG (PRINIVIL) TABLET PO SCH (09:32)
--- NOTE | 2019-04-17 10:00 | NUR ---
VOIDED CHAU COLOR URINE, LARGE BM
--- NOTE | 2019-04-17 10:28 | Pulmonary Progress Note ---
Subjective Time Seen by a Provider: 10:27 Subjective/Events-last exam No complications noted. Sepsis Event Evaluation Height, Weight, BMI Height: 5'5.00" Weight: 203lbs. 7.0oz. 92.199642jw; 33.3 BMI Method:Stated Exam Exam Vital Signs Date Time Temp Pulse Resp B/P (MAP) Pulse Ox O2 Delivery O2 Flow Rate FiO2 04/17/19 08:00 97.4 73 20 114/63 (80) 94 High Flow N/C 2.00 04/17/19 01:27 95 High Flow N/C 1.00 04/17/19 00:00 97.4 77 19 146/75 (98) 92 High Flow N/C 2.00 04/16/19 22:24 95 High Flow N/C 2.00 04/16/19 21:46 High Flow N/C 2.00 04/16/19 19:45 97.7 77 20 146/76 (99) 96 High Flow N/C 5.00 04/16/19 19:38 92 High Flow N/C 2.00 04/16/19 16:13 97.8 81 20 138/87 (104) 91 High Flow N/C 5.00 04/16/19 15:28 94 High Flow N/C 3.00 04/16/19 12:00 97.2 68 20 149/70 (96) 92 High Flow N/C 5.00 04/16/19 11:32 95 High Flow N/C 5.00 I & O 04/17/19 07:00 Intake Total 3100 ml Output Total 4925 ml Balance -1825 ml Height & Weight Height: 5'5.00" Weight: 203lbs. 7.0oz. 92.045576lp; 33.3 BMI Method:Stated General Appearance: No Apparent Distress, WD/WN HEENT: Normal ENT Inspection Neck: Full Range of Motion, Normal Inspection Respiratory: No Accessory Muscle Use, No Respiratory Distress, Decreased Breath Sounds Cardiovascular: Regular Rate, Rhythm, No Murmur Capillary Refill: Less Than 3 Seconds Gastrointestinal: non tender, soft Extremity: Normal Capillary Refill, Normal Inspection, No Pedal Edema Neurologic/Psychiatric: Alert, Oriented x3 Skin: Normal Color, Warm/Dry Lymphatic: No Adenopathy Results Lab Laboratory Tests 04/17/19 06:10 Assessment/Plan Assessment/Plan Acute on chronic respiratory failure -CXR improved Aspiration PNA - present on admission. -Zosyn - D/C Leukocytosis -secondary to steroids COPDAE -SVNS -prednisone taper PNA RLL vs pulmonary congestion Morbid obesity Pt is ok for discharge from pulmonary standpoint. KEYONA EVANS DO Apr 17, 2019 10:28
--- NOTE | 2019-04-17 11:00 | NUR ---
DR CASANOVA NOTIFIED AND ORDER GIVEN TO DISCHARGE HOME
--- NOTE | 2019-04-17 12:37 | NUR ---
CM/SS sent discharge information to [facility]. Awaiting a transport time from them.
[2019-04-17 13:35] VITALS: BP 114/63
--- NOTE | 2019-04-17 13:38 | NUR ---
CM/SS [facility] called and stated they will transport within the half hr. RNing updated.
--- NOTE | 2019-04-17 14:00 | NUR ---
REPORT CALLED TO PENNY AT [facility]
--- NOTE | 2019-04-17 14:20 | NUR ---
LUIS MANUEL RETANA discharged to [facility]. SNF notified of discharge and report given to PENNY. LUIS MANUEL RETANA belongings sent with PATIENT. Skin dry and intact; no breakdown noted. LUIS MANUEL RETANA discharged saline lock, Vital signs are stable at time of discharge. Condition is/is not stable at time of discharge. Discharge instructions and copies of H&P, discharge summary, physician's order, lab reports, consultation reports, other dictated reports, diagnostic imaging reports, Advance Directive, eMAR, vital signs, intake and output sent with PATIENT. [facility]19 at 1420. LUIS MANUEL RETANA left floor via W/C, accompanied by STAFF. LUIS MANUEL RETANA and family/DPOA notified and verbalize understanding of discharge to [facility].
--- NOTE | 2019-04-20 18:20 | Discharge Summary ---
Diagnosis/Chief Complaint Date of Admission Apr 10, 2019 at 16:14 Date of Discharge Apr 17, 2019 at 14:20 Discharge Date: Apr 17, 2019 Discharge Time: 18:18 Discharge Diagnosis Chronic respiratory failure. Short of breath. Right lower lobe pneumonia. Aspiration pneumonia. COPD with acute exacerbation. Hypertension. History of tobaccoism Discharge Summary Consultations Pulmonology Discharge Physical Examination Allergies: Coded Allergies: No Known Drug Allergies (Unverified , 03/09/19) Vitals & I&Os Vital Signs Date Time Temp Pulse Resp B/P (MAP) Pulse Ox O2 Delivery O2 Flow Rate FiO2 04/17/19 13:35 73 20 114/63 94 Nasal Cannula 2.00 04/17/19 08:00 97.4 04/16/19 02:34 35 Hospital Course Patient in hospital did better. Patient wanted to go back to [facility]. Patient breathing better Labs (last 24 hrs) Laboratory Tests 04/10/19 14:00: White Blood Count 10.6, Red Blood Count 5.65, Hemoglobin 15.1, Hematocrit 47, Mean Corpuscular Volume 84, Mean Corpuscular Hemoglobin 27, Mean Corpuscular Hemoglobin Concent 32, Red Cell Distribution Width 19.4H, Platelet Count 127L, Mean Platelet Volume 11.0H, Neutrophils (%) (Auto) 61, Lymphocytes (%) (Auto) 15, Monocytes (%) (Auto) 23H, Eosinophils (%) (Auto) 0, Basophils (%) (Auto) 0, Neutrophils # (Auto) 6.4, Lymphocytes # (Auto) 1.6, Monocytes # (Auto) 2.5H, Eosinophils # (Auto) 0.0, Basophils # (Auto) 0.0, Neutrophils % (Manual) 20, Lymphocytes % (Manual) 15, Monocytes % (Manual) 25, Eosinophils % (Manual) 0, Basophils % (Manual) 0, Metamyelocytes % 4, Band Neutrophils 36, Anisocytosis MARKED, Sodium Level 138, Potassium Level 4.1, Chloride Level 96L, Carbon Dioxide Level 30, Anion Gap 12, Blood Urea Nitrogen 12, Creatinine 0.78, Estimat Glomerular Filtration Rate > 60, BUN/Creatinine Ratio 15, Glucose Level 140H, Calcium Level 9.6, Corrected Calcium 9.7, Total Bilirubin 1.2H, Aspartate Amino Transf (AST/SGOT) 14, Alanine Aminotransferase (ALT/SGPT) 15, Alkaline Phosphatase 81, C-Reactive Protein High Sensitivity 37.28H, B-Type Natriuretic Peptide 177.0H, Total Protein 7.7, Albumin 3.9 04/10/19 14:30: Prothrombin Time 13.7, INR Comment 1.0, Activated Partial Thromboplast Time 30, Lactic Acid Level 0.94 04/10/19 15:45: Urine Color YELLOW, Urine Clarity SLIGHTLY CLOUDY, Urine pH 5, Urine Specific [place] 1.025H, Urine Protein 2+H, Urine Glucose (UA) NEGATIVE, Urine Ketones NEGATIVE, Urine Nitrite NEGATIVE, Urine Bilirubin 1+H, Urine Urobilinogen 4H, Urine Leukocyte Esterase 1+H, Urine RBC (Auto) 3+H, Urine RBC 5-10H, Urine WBC RARE, Urine Squamous Epithelial Cells NONE, Urine Crystals NONE, Urine Bacteria FEWH, Urine Casts NONE, Urine Mucus MODERATEH, Urine Culture Indicated CULTURE PENDING 04/10/19 16:14: Lab Scanned Report Referred Lab Report 04/10/19 17:55: Blood Gas Puncture Site LEFT RADIAL, Blood Gas Patient Temperature 97.1, Arter ial Blood pH 7.35L, Arterial Blood Partial Pressure CO2 60H, Arterial Blood Partial Pressure O2 78L, Arterial Blood HCO3 33H, Arterial Blood Total CO2 34.6H , Arterial Blood Oxygen Saturation 96, Arterial Blood Base Excess 7.1H, Jeff Test POSITIVE, Blood Gas Ventilator Setting NO, Blood Gas Inspired Oxygen 55% BIPAP 04/11/19 03:10: White Blood Count 3.4L, Red Blood Count 3.56L, Hemoglobin 12.1L, Hematocrit 35L, Mean Corpuscular Volume 98, Mean Corpuscular Hemoglobin 34, Mean Corpuscular Hemoglobin Concent 35, Red Cell Distribution Width 13.1, Platelet Count 115L, Mean Platelet Volume 11.3H, Neutrophils (%) (Auto) 61, Lymphocytes (%) (Auto) 25, Monocytes (%) (Auto) 11, Eosinophils (%) (Auto) 2, Basophils (%) (Auto) 1, Neutrophils # (Auto) 2.1, Lymphocytes # (Auto) 0.9L, Monocytes # (Auto) 0.4, Eosinophils # (Auto) 0.1, Basophils # (Auto) 0.0, Sodium Level 135, Potassium Level 3.9, Chloride Level 101, Carbon Dioxide Level 24, Anion Gap 10, Blood Urea Nitrogen 7, Creatinine 0.68, Estimat Glomerular Filtration Rate > 60, BUN/C reatinine Ratio 10, Glucose Level 106H, Calcium Level 9.1, Phosphorus Level 2.6, Magnesium Level 1.4L 04/11/19 04:14: Blood Gas Puncture Site LEFT RADIAL, Blood Gas Patient Temperature 97.0, Arterial Blood pH 7.34*L, Arterial Blood Partial Pressure CO2 59H, Arterial Blood Partial Pressure O2 71L, Arterial Blood HCO3 32H, Arterial Blood Total CO2 33.4H, Arterial Blood Oxygen Saturation 94, Arterial Blood Base Excess 5.9H, Jeff Test POSITIVE, Blood Gas Ventilator Setting YES, Blood Gas Inspired Oxygen 40% BIPAP 04/11/19 06:46: Glucometer 174H 04/11/19 12:04: Glucometer 153H 04/11/19 12:39: Blood Gas Puncture Site LT RAD, Blood Gas Patient Temperature 97.8, Arterial Blood pH 7.35L, Arterial Blood Partial Pressure CO2 58H, Arterial Blood Partial Pressure O2 61L, Arterial Blood HCO3 31H, Arterial Blood Total CO2 33.2H, Arterial Blood Oxygen Saturation 91L, Arterial Blood Base Excess 6.0H, Jeff Test YES-POS, Blood Gas Ventilator Setting NO, Blood Gas Inspired Oxygen 75% 04/11/19 15:10: Blood Gas Puncture Site LT RAD, Blood Gas Patient Temperature 98.2, Arterial Blood pH 7.33*L, Arterial Blood Partial Pressure CO2 62H, Arterial Blood Partial Pressure O2 89, Arterial Blood HCO3 32H, Arterial Blood Total CO2 33.6H, Arterial Blood Oxygen Saturation 97, Arterial Blood Base Excess 6.0H, Jeff Test YES-POS, Blood Gas Ventilator Setting NO, Blood Gas Inspired Oxygen 75% 04/11/19 16:45: Blood Gas Puncture Site LT RAD, Blood Gas Patient Temperature 98.0, Arterial Blood pH 7.35L, Arterial Blood Partial Pressure CO2 38, Arterial Blood Partial Pressure O2 138H, Arterial Blood HCO3 21L, Arterial Blood Total CO2 22.1, Arterial Blood Oxygen Saturation 96, Arterial Blood Base Excess -3.8L, Jeff Test YES-POS, Blood Gas Ventilator Setting NO, Blood Gas Inspired Oxygen 40% 04/11/19 18:09: Glucometer 145H 04/12/19 00:21: Glucometer 138H 04/12/19 03:14: White Blood Count 13.3H, Red Blood Count 5.15, Hemoglobin 13.7, Hematocrit 43, Mean Corpuscular Volume 84, Mean Corpuscular Hemoglobin 27, Mean Corpuscular Hemoglobin Concent 32, Red Cell Distribution Width 18.7H, Platelet Count 142, Mean Platelet Volume 11.8H, Neutrophils (%) (Auto) 84H, Lymphocytes (%) (Auto) 8L, Monocytes (%) (Auto) 9, Eosinophils (%) (Auto) 0, Basophils (%) (Auto) 0, Neutrophils # (Auto) 11.1H, Lymphocytes # (Auto) 1.0, Monocytes # (Auto) 1.1H, Eosinophils # (Auto) 0.0, Basophils # (Auto) 0.0, Sodium Level 145, Potassium Level 4.1, Chloride Level 107, Carbon Dioxide Level 27, Anion Gap 11, Blood Urea Nitrogen 24H, Creatinine 0.83, Estimat Glomerular Filtration Rate > 60, BUN/Cre atinine Ratio 29, Glucose Level 146H, Calcium Level 9.1, Phosphorus Level 2.6, Magnesium Level 2.2 04/12/19 04:00: Blood Gas Puncture Site LEFT RADIAL, Blood Gas Patient Temperature 98.0, Arterial Blood pH 7.39, Arterial Blood Partial Pressure CO2 52H, Arterial Blood Partial Pressure O2 58L, Arterial Blood HCO3 31H, Arterial Blood Total CO2 32.4H , Arterial Blood Oxygen Saturation 91L, Arterial Blood Base Excess 5.8H, Jeff Test POSITIVE, Blood Gas Ventilator Setting YES, Blood Gas Inspired Oxygen 30% BIPAP 04/12/19 05:56: Vancomycin Level Trough 14.2 04/12/19 08:02: Blood Gas Puncture Site L.RADIAL, Blood Gas Patient Temperature 98.3, Arterial Blood pH 7.37, Arterial Blood Partial Pressure CO2 54H, Arterial Blood Partial Pressure O2 43L, Arterial Blood HCO3 30H, Arterial Blood Total CO2 31.6H, Arterial Blood Oxygen Saturation 69L, Arterial Blood Base Excess 4.9H, Jeff Test YES-POS, Blood Gas Ventilator Setting NO, Blood Gas Inspired Oxygen 25% BIPAP 04/12/19 12:13: Glucometer 145H 04/12/19 17:37: Glucometer 139H 04/13/19 00:09: Glucometer 133H 04/13/19 03:24: White Blood Count 13.7H, Red Blood Count 5.13, Hemoglobin 13.6, Hematocrit 43, Mean Corpuscular Volume 83, Mean Corpuscular Hemoglobin 27, Mean Corpuscular Hemoglobin Concent 32, Red Cell Distribution Width 19.6H, Platelet Count 132, Mean Platelet Volume 11.0H, Neutrophils (%) (Auto) 83H, Lymphocytes (%) (Auto) 9L, Monocytes (%) (Auto) 8, Eosinophils (%) (Auto) 0, Basophils (%) (Auto) 1, Neutrophils # (Auto) 11.4H, Lymphocytes # (Auto) 1.2, Monocytes # (Auto) 1.0, Eosinophils # (Auto) 0.0, Basophils # (Auto) 0.1, Sodium Level 147H, Potassium Level 3.9, Chloride Level 112H, Carbon Dioxide Level 23, Anion Gap 12, Blood Urea Nitrogen 27H, Creatinine 0.87, Estimat Glomerular Filtration Rate > 60, BUN/Creatinine Ratio 31, Glucose Level 144H, Calcium Level 8.9, Phosphorus Level 2.8, Magnesium Level 2.2 04/13/19 03:30: Blood Gas Puncture Site LEFT RADIAL, Blood Gas Patient Temperature 97.7, Arterial Blood pH 7.42, Arterial Blood Partial Pressure CO2 43, Arterial Blood Partial Pressure O2 68L, Arterial Blood HCO3 27, Arterial Blood Total CO2 28.7, Arterial Blood Oxygen Saturation 95, Arterial Blood Base Excess 3.1H, Jeff Test POSITIVE, Blood Gas Ventilator Setting NO, Blood Gas Inspired Oxygen 25% BIPAP 04/13/19 12:00: Glucometer 127H 04/13/19 18:07: Glucometer 114H 04/13/19 23:38: Glucometer 189H 04/14/19 03:10: White Blood Count 18.6H, Red Blood Count 5.30, Hemoglobin 14.3, Hematocrit 44, Mean Corpuscular Volume 84, Mean Corpuscular Hemoglobin 27, Mean Corpuscular Hemoglobin Concent 32, Red Cell Distribution Width 19.0H, Platelet Count 134, Mean Platelet Volume 11.4H, Neutrophils (%) (Auto) 81H, Lymphocytes (%) (Auto) 9L, Monocytes (%) (Auto) 9, Eosinophils (%) (Auto) 0, Basophils (%) (Auto) 1, Neutrophils # (Auto) 15.0H, Lymphocytes # (Auto) 1.7, Monocytes # (Auto) 1.7H, Eosinophils # (Auto) 0.0, Basophils # (Auto) 0.2H, Neutrophils % (Manual) 73, Lymphocytes % (Manual) 17, Monocytes % (Manual) 4, Atypical Lymphocytes 6, So dium Level 143, Potassium Level 4.1, Chloride Level 103, Carbon Dioxide Level 28, Anion Gap 12, Blood Urea Nitrogen 26H, Creatinine 0.88, Estimat Glomerular Filtration Rate > 60, BUN/Creatinine Ratio 30, Glucose Level 148H, Calcium Level 8.9, Phosphorus Level 3.9, Magnesium Level 2.3, B-Type Natriuretic Peptide 663.8H 04/14/19 05:57: Blood Gas Puncture Site LEFT RADIAL, Blood Gas Patient Temperature 98.0, Arterial Blood pH 7.40, Arterial Blood Partial Pressure CO2 54H, Arterial Blood Partial Pressure O2 83, Arterial Blood HCO3 33H, Arterial Blood Total CO2 34.4H, Arterial Blood Oxygen Saturation 97, Arterial Blood Base Excess 7.8H, Jeff Test POSITIVE, Blood Gas Ventilator Setting YES, Blood Gas Inspired Oxygen 25L/60% VAPO 04/14/19 11:23: Glucometer 171H 04/14/19 18:04: Glucometer 139H 04/15/19 01:39: Glucometer 122H 04/15/19 03:25: White Blood Count 18.6H, Red Blood Count 5.49, Hemoglobin 14.7, Hematocrit 45, Mean Corpuscular Volume 81, Mean Corpuscular Hemoglobin 27, Mean Corpuscular Hemoglobin Concent 33, Red Cell Distribution Width 18.7H, Platelet Count 131, Mean Platelet Volume 10.6H, Neutrophils (%) (Auto) 71, Lymphocytes (%) (Auto) 16, Monocytes (%) (Auto) 12, Eosinophils (%) (Auto) 0, Basophils (%) (Auto) 1, Neutrophils # (Auto) 13.2H, Lymphocytes # (Auto) 3.0, Monocytes # (Auto) 2.3H, Eosinophils # (Auto) 0.0, Basophils # (Auto) 0.1, Sodium Level 140, Potassium Level 3.6, Chloride Level 97L, Carbon Dioxide Level 32, Anion Gap 11, Blood Urea Nitrogen 18, Creatinine 0.79, Estimat Glomerular Filtration Rate > 60, BUN/Creatinine Ratio 23, Glucose Level 129H, Calcium Level 8.5, Phosphorus Level 3.6, Magnesium Level 2.1 04/15/19 05:19: Glucometer 111H 04/15/19 11:41: Glucometer 234H 04/15/19 17:55: Glucometer 122H 04/16/19 00:15: Glucometer 98 04/16/19 05:55: Glucometer 101 04/16/19 11:02: Glucometer 113H 04/16/19 17:30: Glucometer 140H 04/17/19 00:21: Glucometer 122H 04/17/19 05:45: Glucometer 102 04/17/19 06:10: White Blood Count 19.4H, Red Blood Count 5.81, Hemoglobin 15.3, Hematocrit 47, Mean Corpuscular Volume 81, Mean Corpuscular Hemoglobin 26, Mean Corpuscular Hemoglobin Concent 33, Red Cell Distribution Width 19.4H, Platelet Count 126L, Mean Platelet Volume 10.5H, Sodium Level 140, Potassium Level 3.6, Chloride Level 101, Carbon Dioxide Level 28, Anion Gap 11, Blood Urea Nitrogen 17, Creatinine 0.79, Estimat Glomerular Filtration Rate > 60, BUN/Creatinine Ratio 22, Glucose Level 100, Calcium Level 8.5 04/17/19 11:00: Glucometer 88 Microbiology 04/10/19 Blood Culture - Final, Complete No growth 04/10/19 MRSA Screen - Final, Complete MRSA not isolated 04/10/19 Urine Culture - Final, Complete NO GROWTH Laboratory Tests 04/10/19 14:00 04/11/19 03:10 04/12/19 03:14 04/13/19 03:24 04/14/19 03:10 04/15/19 03:25 04/17/19 06:10 Pending Labs Microbiology Date/Time Source Procedure Growth Status 04/10/19 14:30 Peripheral Rt Ac Blood Culture - Final No growth Complete 04/10/19 14:00 Peripheral Lt Hand Blood Culture - Final No growth Complete 04/10/19 18:15 Nasal MRSA Screen - Final MRSA not isolated Complete 04/10/19 15:45 Urine Clean Catch Urine Culture - Final NO GROWTH Complete Laboratory Tests 04/10/19 14:00: White Blood Count 10.6, Red Blood Count 5.65, Hemoglobin 15.1, Hematocrit 47, Mean Corpuscular Volume 84, Mean Corpuscular Hemoglobin 27, Mean Corpuscular Hemoglobin Concent 32, Red Cell Distribution Width 19.4, Platelet Count 127, Mean Platelet Volume 11.0, Neutrophils (%) (Auto) 61, Lymphocytes (%) (Auto) 15, Monocytes (%) (Auto) 23, Eosinophils (%) (Auto) 0, Basophils (%) (Auto) 0, Neutrophils # (Auto) 6.4, Lymphocytes # (Auto) 1.6, Monocytes # (Auto) 2.5, Eosinophils # (Auto) 0.0, Basophils # (Auto) 0.0, Neutrophils % (Manual) 20, Lymphocytes % (Manual) 15, Monocytes % (Manual) 25, Eosinophils % (Manual) 0, Basophils % (Manual) 0, Metamyelocytes % 4, Band Neutrophils 36, Anisocytosis MARKED, Sodium Level 138, Potassium Level 4.1, Chloride Level 96, Carbon Dioxide Level 30, Anion Gap 12, Blood Urea Nitrogen 12, Creatinine 0.78, Estimat Glomerular Filtration Rate > 60, BUN/Creatinine Ratio 15, Glucose Level 140, Calcium Level 9.6, Corrected Calcium 9.7, Total Bilirubin 1.2, Aspartate Amino Transf (AST/SGOT) 14, Alanine Aminotransferase (ALT/SGPT) 15, Alkaline Phosphatase 81, C-Reactive Protein High Sensitivity 37.28, B-Type Natriuretic Peptide 177.0, Total Protein 7.7, Albumin 3.9 04/10/19 14:30: Prothrombin Time 13.7, INR Comment 1.0, Activated Partial Thromboplast Time 30, Lactic Acid Level 0.94 04/10/19 15:45: Urine Color YELLOW, Urine Clarity SLIGHTLY CLOUDY, Urine pH 5, Urine Specific [place] 1.025, Urine Protein 2+, Urine Glucose (UA) NEGATIVE, Urine Ketones NEGATIVE, Urine Nitrite NEGATIVE, Urine Bilirubin 1+, Urine Urobilinogen 4, Urine Leukocyte Esterase 1+, Urine RBC (Auto) 3+, Urine RBC 5-10, Urine WBC RARE, Urine Squamous Epithelial Cells NONE, Urine Crystals NONE, Urine Bacteria FEW, Urine Casts NONE, Urine Mucus MODERATE, Urine Culture Indicated CULTURE PENDING 04/10/19 16:14: Lab Scanned Report Referred Lab Report 04/10/19 17:55: Blood Gas Puncture Site LEFT RADIAL, Blood Gas Patient Temperature 97.1, Arterial Blood pH 7.35, Arterial Blood Partial Pressure CO2 60, Arterial Blood Partial Pressure O2 78, Arterial Blood HCO3 33, Arterial Blood Total CO2 34.6, Arterial Blood Oxygen Saturation 96, Arterial Blood Base Excess 7.1, Jeff Test POSITIVE, Blood Gas Ventilator Setting NO, Blood Gas Inspired Oxygen 55% BIPAP 04/11/19 03:10: White Blood Count 3.4, Red Blood Count 3.56, Hemoglobin 12.1, Hematocrit 35, Mean Corpuscular Volume 98, Mean Corpuscular Hemoglobin 34, Mean Corpuscular Hem oglobin Concent 35, Red Cell Distribution Width 13.1, Platelet Count 115, Mean Platelet Volume 11.3, Neutrophils (%) (Auto) 61, Lymphocytes (%) (Auto) 25, Monocytes (%) (Auto) 11, Eosinophils (%) (Auto) 2, Basophils (%) (Auto) 1, Neutrophils # (Auto) 2.1, Lymphocytes # (Auto) 0.9, Monocytes # (Auto) 0.4, Eosinophils # (Auto) 0.1, Basophils # (Auto) 0.0, Sodium Level 135, Potassium Level 3.9, Chloride Level 101, Carbon Dioxide Level 24, Anion Gap 10, Blood Urea Nitrogen 7, Creatinine 0.68, Estimat Glomerular Filtration Rate > 60, BUN/Creatinine Ratio 10, Glucose Level 106, Calcium Level 9.1, Phosphorus Level 2.6, Magnesium Level 1.4 04/11/19 04:14: Blood Gas Puncture Site LEFT RADIAL, Blood Gas Patient Temperature 97.0, Arterial Blood pH 7.34, Arterial Blood Partial Pressure CO2 59, Arterial Blood Partial Pressure O2 71, Arterial Blood HCO3 32, Arterial Blood Total CO2 33.4, Arterial Blood Oxygen Saturation 94, Arterial Blood Base Excess 5.9, Jeff Test POSITIVE, Blood Gas Ventilator Setting YES, Blood Gas Inspired Oxygen 40% BIPAP 04/11/19 06:46: Glucometer 174 04/11/19 12:04: Glucometer 153 04/11/19 12:39: Blood Gas Puncture Site LT RAD, Blood Gas Patient Temperature 97.8, Arterial Blood pH 7.35, Arterial Blood Partial Pressure CO2 58, Arterial Blood Partial Pressure O2 61, Arterial Blood HCO3 31, Arterial Blood Total CO2 33.2, Arterial Blood Oxygen Saturation 91, Arterial Blood Base Excess 6.0, Jeff Test YES-POS, Blood Gas Ventilator Setting NO, Blood Gas Inspired Oxygen 75% 04/11/19 15:10: Blood Gas Puncture Site LT RAD, Blood Gas Patient Temperature 98.2, Arterial B lood pH 7.33, Arterial Blood Partial Pressure CO2 62, Arterial Blood Partial Pressure O2 89, Arterial Blood HCO3 32, Arterial Blood Total CO2 33.6, Arterial Blood Oxygen Saturation 97, Arterial Blood Base Excess 6.0, Jeff Test YES-POS, Blood Gas Ventilator Setting NO, Blood Gas Inspired Oxygen 75% 04/11/19 16:45: Blood Gas Puncture Site LT RAD, Blood Gas Patient Temperature 98.0, Arterial Blood pH 7.35, Arterial Blood Partial Pressure CO2 38, Arterial Blood Partial Pressure O2 138, Arterial Blood HCO3 21, Arterial Blood Total CO2 22.1, Arterial Blood Oxygen Saturation 96, Arterial Blood Base Excess -3.8, Jeff Test YES-POS, Blood Gas Ventilator Setting NO, Blood Gas Inspired Oxygen 40% 04/11/19 18:09: Glucometer 145 04/12/19 00:21: Glucometer 138 04/12/19 03:14: White Blood Count 13.3, Red Blood Count 5.15, Hemoglobin 13.7, Hematocrit 43, Mean Corpuscular Volume 84, Mean Corpuscular Hemoglobin 27, Mean Corpuscular Hemoglobin Concent 32, Red Cell Distribution Width 18.7, Platelet Count 142, Mean Platelet Volume 11.8, Neutrophils (%) (Auto) 84, Lymphocytes (%) (Auto) 8, Monocytes (%) (Auto) 9, Eosinophils (%) (Auto) 0, Basophils (%) (Auto) 0, Neutrophils # (Auto) 11.1, Lymphocytes # (Auto) 1.0, Monocytes # (Auto) 1.1, Eosinophils # (Auto) 0.0, Basophils # (Auto) 0.0, Sodium Level 145, Potassium Level 4.1, Chloride Level 107, Carbon Dioxide Level 27, Anion Gap 11, Blood Urea Nitrogen 24, Creatinine 0.83, Estimat Glomerular Filtration Rate > 60, BUN/Creatinine Ratio 29, Glucose Level 146, Calcium Level 9.1, Phosphorus Level 2.6, Magnesium Level 2.2 04/12/19 04:00: Blood Gas Puncture Site LEFT RADIAL, Blood Gas Patient Temperature 98.0, Arterial Blood pH 7.39, Arterial Blood Partial Pressure CO2 52, Arterial Blood Partial Pressure O2 58, Arterial Blood HCO3 31, Arterial Blood Total CO2 32.4, Arterial Blood Oxygen Saturation 91, Arterial Blood Base Excess 5.8, Jeff Test POSITIVE, Blood Gas Ventilator Setting YES, Blood Gas Inspired Oxygen 30% BIPAP 04/12/19 05:56: Vancomycin Level Trough 14.2 04/12/19 08:02: Blood Gas Puncture Site L.RADIAL, Blood Gas Patient Temperature 98.3, Arterial Blood pH 7.37, Arterial Blood Partial Pressure CO2 54, Arterial Blood Partial Pressure O2 43, Arterial Blood HCO3 30, Arterial Blood Total CO2 31.6, Arterial Blood Oxygen Saturation 69, Arterial Blood Base Excess 4.9, Jeff Test YES-POS, Blood Gas Ventilator Setting NO, Blood Gas Inspired Oxygen 25% BIPAP 04/12/19 12:13: Glucometer 145 04/12/19 17:37: Glucometer 139 04/13/19 00:09: Glucometer 133 04/13/19 03:24: White Blood Count 13.7, Red Blood Count 5.13, Hemoglobin 13.6, Hematocrit 43, Mean Corpuscular Volume 83, Mean Corpuscular Hemoglobin 27, Mean Corpuscular Hemoglobin Concent 32, Red Cell Distribution Width 19.6, Platelet Count 132, Mean Platelet Volume 11.0, Neutrophils (%) (Auto) 83, Lymphocytes (%) (Auto) 9, Monocytes (%) (Auto) 8, Eosinophils (%) (Auto) 0, Basophils (%) (Auto) 1, Neutrophils # (Auto) 11.4, Lymphocytes # (Auto) 1.2, Monocytes # (Auto) 1.0, Eosinophils # (Auto) 0.0, Basophils # (Auto) 0.1, Sodium Level 147, Potassium Level 3.9, Chloride Level 112, Carbon Dioxide Level 23, Anion Gap 12, Blood Urea Nitrogen 27, Creatinine 0.87, Estimat Glomerular Filtration Rate > 60, BUN/Creatinine Ratio 31, Glucose Level 144, Calcium Level 8.9, Phosphorus Level 2.8, Magnesium Level 2.2 04/13/19 03:30: Blood Gas Puncture Site LEFT RADIAL, Blood Gas Patient Temperature 97.7, Arterial Blood pH 7.42, Arterial Blood Partial Pressure CO2 43, Arterial Blood Partial Pressure O2 68, Arterial Blood HCO3 27, Arterial Blood Total CO2 28.7, Arterial Blood Oxygen Saturation 95, Arterial Blood Base Excess 3.1, Jeff Test POSITIVE, Blood Gas Ventilator Setting NO, Blood Gas Inspired Oxygen 25% BIPAP 04/13/19 12:00: Glucometer 127 04/13/19 18:07: Glucometer 114 04/13/19 23:38: Glucometer 189 04/14/19 03:10: White Blood Count 18.6, Red Blood Count 5.30, Hemoglobin 14.3, Hematocrit 44, Mean Corpuscular Volume 84, Mean Corpuscular Hemoglobin 27, Mean Corpuscular Hemoglobin Concent 32, Red Cell Distribution Width 19.0, Platelet Count 134, Mean Platelet Volume 11.4, Neutrophils (%) (Auto) 81, Lymphocytes (%) (Auto) 9, Monocytes (%) (Auto) 9, Eosinophils (%) (Auto) 0, Basophils (%) (Auto) 1, Neutrophils # (Auto) 15.0, Lymphocytes # (Auto) 1.7, Monocytes # (Auto) 1.7, Eosinophils # (Auto) 0.0, Basophils # (Auto) 0.2, Neutrophils % (Manual) 73, Lymphocytes % (Manual) 17, Monocytes % (Manual) 4, Atypical Lymphocytes 6, Sodium Level 143, Potassium Level 4.1, Chloride Level 103, Carbon Dioxide Level 28, Anion Gap 12, Blood Urea Nitrogen 26, Creatinine 0.88, Estimat Glomerular Filtration Rate > 60, BUN/Creatinine Ratio 30, Glucose Level 148, Calcium Level 8.9, Phosphorus Level 3.9, Magnesium Level 2.3, B-Type Natriuretic Peptide 663.8 04/14/19 05:57: Blood Gas Puncture Site LEFT RADIAL, Blood Gas Patient Temperature 98.0, Arterial Blood pH 7.40, Arterial Blood Partial Pressure CO2 54, Arterial Blood Partial Pressure O2 83, Arterial Blood HCO3 33, Arterial Blood Total CO2 34.4, Arterial Blood Oxygen Saturation 97, Arterial Blood Base Excess 7.8, Jeff Test POSITIVE, Blood Gas Ventilator Setting YES, Blood Gas Inspired Oxygen 25L/60% VAPO 04/14/19 11:23: Glucometer 171 04/14/19 18:04: Glucometer 139 04/15/19 01:39: Glucometer 122 04/15/19 03:25: White Blood Count 18.6, Red Blood Count 5.49, Hemoglobin 14.7, Hematocrit 45, Mean Corpuscular Volume 81, Mean Corpuscular Hemoglobin 27, Mean Corpuscular Hemoglobin Concent 33, Red Cell Distribution Width 18.7, Platelet Count 131, Mean Platelet Volume 10.6, Neutrophils (%) (Auto) 71, Lymphocytes (%) (Auto) 16, Monocytes (%) (Auto) 12, Eosinophils (%) (Auto) 0, Basophils (%) (Auto) 1, Neutrophils # (Auto) 13.2, Lymphocytes # (Auto) 3.0, Monocytes # (Auto) 2.3, Eosinophils # (Auto) 0.0, Basophils # (Auto) 0.1, Sodium Level 140, Potassium Level 3.6, Chloride Level 97, Carbon Dioxide Level 32, Anion Gap 11, Blood Urea Nitrogen 18, Creatinine 0.79, Estimat Glomerular Filtration Rate > 60, BUN/Creatinine Ratio 23, Glucose Level 129, Calcium Level 8.5, Phosphorus Level 3.6, Magnesium Level 2.1 04/15/19 05:19: Glucometer 111 04/15/19 11:41: Glucometer 234 04/15/19 17:55: Glucometer 122 04/16/19 00:15: Glucometer 98 04/16/19 05:55: Glucometer 101 04/16/19 11:02: Glucometer 113 04/16/19 17:30: Glucometer 140 04/17/19 00:21: Glucometer 122 04/17/19 05:45: Glucometer 102 04/17/19 06:10: White Blood Count 19.4, Red Blood Count 5.81, Hemoglobin 15.3, Hematocrit 47, Mean Corpuscular Volume 81, Mean Corpuscular Hemoglobin 26, Mean Corpuscular Hemoglobin Concent 33, Red Cell Distribution Width 19.4, Platelet Count 126, Mean Platelet Volume 10.5, Sodium Level 140, Potassium Level 3.6, Chloride Level 101, Carbon Dioxide Level 28, Anion Gap 11, Blood Urea Nitrogen 17, Creatinine 0.79, Estimat Glomerular Filtration Rate > 60, BUN/Creatinine Ratio 22, Glucose Level 100, Calcium Level 8.5 04/17/19 11:00: Glucometer 88 Discharge Home Medications: Active Scripts Active Lisinopril 10 Mg Tablet 10 Mg PO DAILY 30 Days Reported Abilify (Aripiprazole) 15 Mg Tablet 15 Mg PO DAILY Tylenol (Acetaminophen) 325 Mg Tablet 650 Mg PO Q4H PRN Debrox (Carbamide Peroxide) 15 Ml Drops 5 Drops EACH EAR Q12H PRN Multi-Vitamin Daily (Multivitamin) 1 Each Tablet 1 Tab PO DAILY Zofran (Ondansetron HCl) 4 Mg Tab 4 Mg PO Q4H PRN Refresh Tears (Carboxymethylcellulose Sodium) 15 Ml Drops 1 Drop OU Q4H PRN Clonazepam 0.5 Mg Tablet 0.5 Mg PO BID Divalproex Sodium 125 Mg Cap.sprink 125 Mg PO TID Benzonatate 200 Mg Capsule 200 Mg PO Q8H PRN Symbicort 160-4.5 Mcg Inhaler (Budesonide/Formoterol Fumarate) 10.2 Gm Hfa.aer.ad 2 Puff IH BID Protonix (Pantoprazole Sodium) 40 Mg Tablet.dr 40 Mg PO DAILY Metoprolol Tartrate 25 Mg Tablet 25 Mg PO BID HOLD FOR SYSTOLIC BP < 100 Lexapro (Escitalopram Oxalate) 20 Mg Tablet 40 Mg PO DAILY TAKES 2 (20MG) TABLETS Lasix (Furosemide) 20 Mg Tablet 20 Mg PO DAILY Iprat-Albut 0.5-3(2.5) mg/3 ml (Ipratropium/Albuterol Sulfate) 3 Ml Ampul.neb 3 Ml NEB Q6H PRN Aspirin EC (Aspirin) 81 Mg Tablet.dr 81 Mg PO DAILY Instructions to patient/family Please see electronic discharge instructions given to patient. Clinical Quality Measures DVT/VTE Risk/Contraindication: Risk Factor Score Per Nursin RFS Level Per Nursing on Admit: 4+=Very High ART CASANOVA DO Apr 20, 2019 18:20
== END 2019-04-17 14:20 | DRG 177 ==
LOC: EDUNIT# 13:56 → ER 13:57 → ICU 16:14 → 4TH 04-14 09:00
PROVIDERS: ADMIT Internal Medicine; ATTEND Internal Medicine
DX: J69.0 Pneumonitis due to inhalation of food and vomit (principal); J96.21 Acute and chronic respiratory failure with hypoxia; J44.1 Chronic obstructive pulmonary disease with (acute) exacerbation; J18.1 Lobar pneumonia, unspecified organism; F14.20 Cocaine dependence, uncomplicated; B19.20 Unspecified viral hepatitis C without hepatic coma; I11.0 Hypertensive heart disease with heart failure; I50.9 Heart failure, unspecified; E66.01 Morbid (severe) obesity due to excess calories; K21.9 Gastro-esophageal reflux disease without esophagitis; R27.9 Unspecified lack of coordination; R26.9 Unspecified abnormalities of gait and mobility; F41.9 Anxiety disorder, unspecified; F32.9 Major depressive disorder, single episode, unspecified; F17.210 Nicotine dependence, cigarettes, uncomplicated; R45.6 Violent behavior; Z99.81 Dependence on supplemental oxygen; Z85.038 Personal history of other malignant neoplasm of large intestine; Z68.33 Body mass index [BMI] 33.0-33.9, adult
CPT/HCPCS: 36415; 36600; 71045; 71046; 80048; 80053; 80202; 81000; 82805; 82962; 83605; 83735; 83880; 84100; 85007; 85025; 85027; 85610; 85730; 86141; 87040; 87081; 87088; 94640; 94660; 94760; 96374; 96375

== ENCOUNTER → 2019-07-16 | Outpatient (CLI) | payer MEDICAID ==
[~2019-07-16] MED LIST changes: +ARIP15TA4 PO; +LISI10TA2 PO
[2019-07-16 12:44] LABS: BUN/CREATININE RATIO 13; CREATININE SERUM 0.87 MG/DL (0.60-1.30); GFR ESTIMATED > 60
== END ==
LOC: LAB 12:07
PROVIDERS: ATTEND Family Medicine
DX: N28.9 Disorder of kidney and ureter, unspecified (principal)
CPT/HCPCS: 36415; 82565; 84520

== ENCOUNTER → 2019-07-16 | Outpatient (CLI) | payer MEDICAID, MEDICARE ==
[~2019-07-16] MED LIST changes: +CATHETER FLUSH 10 ML SYR IV PRN; +HOLD METFORMIN - RECEIVED CONTRAST 20 ML VIAL IV SCH; +IOHEXOL 350 MG/ML 100 ML (OMNIPAQUE 350) VIAL IV ONE; +NS 100 ML (IVPB) BAG IV ONE
--- NOTE | 2019-07-16 13:56 | Diagnostic Imaging Report ---
PROCEDURE: CT chest with contrast only. TECHNIQUE: Multiple contiguous axial images were obtained through the chest after administration of intravenous contrast. Auto Exposure Controls were utilized during the CT exam to meet ALARA standards for radiation dose reduction. INDICATION: Cough and asthma. Correlation is made with prior CT chest from 03/10/2019. FINDINGS: No axillary lymphadenopathy is detected. An upper right paraesophageal lymph node measures 11 mm. There are some mildly prominent right paratracheal and precarinal lymph nodes present, similar to prior exam. Precarinal node measures 17 mm x 11 mm, stable. Prominent nodes in the cailin bilaterally are also noted similar. No pericardial fluid is identified. Previously noted small right pleural effusion has resolved. There is some residual pleural thickening in the right base. There is minimal patchy infiltrate identified in the superior segment left lower lobe. No parenchymal mass is seen. Upper abdomen demonstrates numerous stones within the gallbladder. IMPRESSION: 1. Stable prominent mediastinal and hilar lymph nodes when compared with exam from 03/10/2019. 2. Resolution of previously noted small right pleural effusion. 3. Minimal patchy left lower lobe infiltrate or atelectasis. 4. Cholelithiasis. Dictated by: Dictated on workstation # [id number]
== END ==
LOC: RAD 12:04
PROVIDERS: ATTEND Nurse Practitioner Family
DX: J90 Pleural effusion, not elsewhere classified (principal); K80.20 Calculus of gallbladder without cholecystitis without obstruction; J40 Bronchitis, not specified as acute or chronic; J44.9 Chronic obstructive pulmonary disease, unspecified; J18.9 Pneumonia, unspecified organism; R91.8 Other nonspecific abnormal finding of lung field; Z72.0 Tobacco use
CPT/HCPCS: 71260

== ENCOUNTER 2021-06-30 00:42 | Inpatient (IN) | payer MEDICAID ==
[~2021-06-30] VITALS: Ht 165 cm; Wt 94.9 kg
[~2021-06-30 00:42] MED LIST changes: +ARIP15TA20 PO; -ARIP15TA9 PO; +ARIP20TA20 PO; -ARIP20TA9 PO; +ASPI-1238 PO; -ASPI-983 PO; -CATHETER FLUSH 10 ML SYR IV PRN; -CLON0.5T13 PO; +CLON0.5T4 PO; -HOLD METFORMIN - RECEIVED CONTRAST 20 ML VIAL IV SCH; -IOHEXOL 350 MG/ML 100 ML (OMNIPAQUE 350) VIAL IV ONE; -LISI10TA2 PO; +LISI10TA25 PO; -NICO-588 TD; +NICO-685 TD; -NS 100 ML (IVPB) BAG IV ONE
--- NOTE | 2021-06-30 00:54 | ED Respiratory ---
General Chief Complaint: Respiratory Problems Stated Complaint: SOA Source: patient, EMS, shelter records Exam Limitations: no limitations History of Present Illness Date Seen by Provider: Jun 30, 2021 Time Seen by Provider: 00:36 Initial Comments Patient ER by EMS from [facility] and rehab with chief complaint of shortness of air. Nurse notes that today he was having oxygen sats and low 70s and EMS states he was in the upper 60s when they arrived on 3 L per nasal cannula. He takes 3 L at baseline. He has breathing treatments but refuses to take them because does not like out and I can feel. He was given a DuoNeb en route by EMS. Patient says he feels full around the middle of his abdomen and has a history of heart failure. He is full code. Last COVID-19 test was on 20 June and it was negative. He has a history of hypertension and COPD. He is fully vaccinated for Covid. He quit smoking years ago. Allergies and Home Medications Allergies Coded Allergies: No Known Drug Allergies (Unverified , 03/09/19) Patient Home Medication List Home Medication List Reviewed: Yes Acetaminophen (Tylenol) 325 Mg Tablet, 650 MG PO Q4H PRN for PAIN-MILD OR TEMPATURE, (Reported) Entered as Reported by: KAMRAN SILVA on 02/03/19 1527 Last Action: Reviewed Aripiprazole (Abilify) 15 Mg Tablet, 15 MG PO DAILY, (Reported) Entered as Reported by: MILA ADAMSON on 04/13/19 0942 Last Action: Reviewed Aspirin (Aspirin EC) 81 Mg Tablet.dr, 81 MG PO DAILY, (Reported) Entered as Reported by: KAMRAN SILVA on 06/18/17949 Last Action: Reviewed Benzonatate (Benzonatate) 200 Mg Capsule, 200 MG PO TID, (Reported) Entered as Reported by: KAMRAN SILVA on 06/18/17949 Last Action: Reviewed Budesonide/Formoterol Fumarate (Symbicort 160-4.5 Mcg Inhaler) 10.2 Gm Hfa.aer.ad, 2 PUFF IH BID, (Reported) Entered as Reported by: KAMRAN SILVA on 06/18/17949 Last Action: Reviewed Carbamide Peroxide (Debrox) 15 Ml Drops, 5 DROPS EACH EAR Q12H PRN for WAX BUILD UP, (Reported) Entered as Reported by: KAMRAN SILVA on 12/29/18 1308 Last Action: Reviewed Carboxymethylcellulose Sodium (Refresh Tears) 15 Ml Drops, 1 DROP OU Q4H PRN for DRY EYES, (Reported) Entered as Reported by: KAMRAN SILVA on 09/25/18927 Last Action: Reviewed Clonazepam (Clonazepam) 0.5 Mg Tablet, 0.5 MG PO BID, (Reported) Entered as Reported by: KAMRAN SILVA on 09/25/18927 Last Action: Reviewed Dextromethorphan HBr (Tussin Cough) 15 Mg/5 Ml Liquid, 10 ML PO Q12H PRN for COUGH, (Reported) Entered as Reported by: MILA ADAMSON on 06/30/21 102 Last Action: Reviewed Divalproex Sodium (Divalproex Sodium) 125 Mg Cap.sprink, 125 MG PO 0900,1300,1700, (Reported) Entered as Reported by: KAMRAN SILVA on 09/25/18927 Last Action: Last Taken Edited Escitalopram Oxalate (Escitalopram Oxalate) 20 Mg Tablet, 30 MG PO DAILY, (Reported) Entered as Reported by: MILA ADAMSON on 06/30/21 102 Last Action: Reviewed Furosemide (Lasix) 20 Mg Tablet, 20 MG PO DAILY, (Reported) Entered as Reported by: KAMRAN SILVA on 06/18/17949 Last Action: Reviewed Ipratropium/Albuterol Sulfate (Iprat-Albut 0.5-3(2.5) mg/3 ml) 3 Ml Ampul.neb, 3 ML NEB Q6H PRN for SHORTNESS OF BREATH, (Reported) Entered as Reported by: KAMRAN SILVA on 06/18/17949 Last Action: Reviewed Lisinopril (Lisinopril) 10 Mg Tablet, 10 MG PO DAILY, (Reported) Entered as Reported by: MILA ADAMSON on 06/30/21 102 Last Action: Reviewed Metoprolol Tartrate (Metoprolol Tartrate) 25 Mg Tablet, 25 MG PO BID, (Reported) Entered as Reported by: KAMRAN SILVA on 06/18/17949 Last Action: Last Taken Edited Multivitamin (Multi-Vitamin Daily) 1 Each Tablet, 1 TAB PO DAILY, (Reported) Entered as Reported by: KAMRAN SILVA on 12/29/18 1308 Last Action: Reviewed Ondansetron HCl (Zofran) 4 Mg Tab, 4 MG PO Q4H PRN for NAUSEA/VOMITING-1ST LINE, (Reported) Entered as Reported by: KAMRAN SILVA on 09/25/18 0928 Last Action: Reviewed Pantoprazole Sodium (Protonix) 40 Mg Tablet.dr, 40 MG PO DAILY, (Reported) Entered as Reported by: KAMRAN SILVA on 06/18/17 0950 Last Action: Reviewed Discontinued Medications Escitalopram Oxalate (Lexapro) 20 Mg Tablet, 40 MG PO DAILY, (Reported) Discontinued Reason: No Longer Taking Entered as Reported by: KAMRAN SILVA on 06/18/17949 Last Action: Discontinued Lisinopril (Lisinopril) 10 Mg Tablet, 10 MG PO DAILY Discontinued Reason: Duplicate Order Prescribed by: ART CASANOVA on 04/17/19 0805 Last Action: Discontinued Review of Systems Review of Systems Constitutional: No chills, No diaphoresis EENTM: No ear discharge, No ear pain Respiratory: No cough; short of breath, wheezing Cardiovascular: No chest pain, No edema Gastrointestinal: No abdominal pain, No constipation, No diarrhea, No nausea Genitourinary: No discharge, No dysuria Musculoskeletal: No back pain, No joint pain All Other Systems Reviewed Negative Unless Noted: Yes Past [id number] Hx Patient Social History Tobacco Use?: No Pt feels they are or have been: No Immunizations Up To Date Tetanus Booster (TDap): Unknown First/Initial COVID19 Vaccinat: 11/10 Second COVID19 Vaccination Manuel: 12/11 Seasonal Allergies Seasonal Allergies: No Past Medical History Surgery/Hospitalization HX: hep, c, copd, anxiety, gerd, htn, chf, pneumonia, Surgeries: No Respiratory: Yes Pneumonia, COPD Cardiac: Yes (heart failure) Hypertension Neurological: No Genitourinary: No Gastrointestinal: Yes Gastroesophageal Reflux, Hepatitis Musculoskeletal: Yes (lack of coordination, abnormal gait/mobility) Endocrine: No HEENT: No Cancer: Yes Colon Psychosocial: Yes (cocaine dependence) Anxiety, Violent Behavior, Depression Integumentary: No Blood Disorders: Yes (HEP C ) Family Medical History Patient reports no known family medical history. No Pertinent Family Hx Physical Exam Vital Signs - First Documented Capillary Refill : Height: 5'5.00" Weight: 203lbs. 7.0oz. 92.107362jj; 33.3 BMI Method:Stated General Appearance: moderate distress, obese Eyes: Bilateral Eye Normal Inspection, Bilateral Eye PERRL, Bilateral Eye EOMI HEENT: PERRL/EOMI, normal ENT inspection, pharynx normal Neck: non-tender, full range of motion, supple, normal inspection Respiratory: lungs clear, respiratory distress, decreased breath sounds, accessory muscle use Cardiovascular: normal peripheral pulses, regular rate, rhythm, JVD Gastrointestinal: normal bowel sounds, non tender, soft Neurologic/Psychiatric: alert, oriented x 3 Skin: normal color, warm/dry Procedures/Interventions Date of ETT Placement: March 09, 2019 Time of ETT Placement: 1444 Progress/Results/Core Measures Suspected Sepsis SIRS Temperature: Pulse: Respiratory Rate: Laboratory Tests 06/30/21 00:46: White Blood Count 8.7 Blood Pressure / Mean: Laboratory Tests 06/30/21 00:46: Creatinine 1.21, Platelet Count 157, Total Bilirubin 0.6 Results/Orders Lab Results Laboratory Tests Test 06/30/21 00:46 06/30/21 00:48 Range/Units White Blood Count 8.7 4.3-11.0 10^3/uL Red Blood Count 6.01 H 4.30-5.52 10^6/uL Hemoglobin 14.3 13.3-17.7 g/dL Hematocrit 51 40-54 % Mean Corpuscular Volume 85 80-99 fL Mean Corpuscular Hemoglobin 24 L 25-34 pg Mean Corpuscular Hemoglobin Concent 28 L 32-36 g/dL Red Cell Distribution Width 20.4 H 10.0-14.5 % Platelet Count 157 130-400 10^3/uL Mean Platelet Volume 9.7 9.0-12.2 fL Immature Granulocyte % (Auto) 2 % Neutrophils (%) (Auto) 60 42-75 % Lymphocytes (%) (Auto) 24 12-44 % Monocytes (%) (Auto) 11 0-12 % Eosinophils (%) (Auto) 2 0-10 % Basophils (%) (Auto) 1 0-10 % Neutrophils # (Auto) 5.3 1.8-7.8 10^3/uL Lymphocytes # (Auto) 2.1 1.0-4.0 10^3/uL Monocytes # (Auto) 1.0 0.0-1.0 10^3/uL Eosinophils # (Auto) 0.2 0.0-0.3 10^3/uL Basophils # (Auto) 0.1 0.0-0.1 10^3/uL Immature Granulocyte # (Auto) 0.1 0.0-0.1 10^3/uL Sodium Level 136 135-145 MMOL/L Potassium Level 5.9 H 3.6-5.0 MMOL/L Chloride Level 94 L 98-107 MMOL/L Carbon Dioxide Level 33 H 21-32 MMOL/L Anion Gap 9 5-14 MMOL/L Blood Urea Nitrogen 24 H 7-18 MG/DL Creatinine 1.21 0.60-1.30 MG/DL Estimat Glomerular Filtration Rate 61 BUN/Creatinine Ratio 20 Glucose Level 109 H 70-105 MG/DL Calcium Level 8.6 8.5-10.1 MG/DL Corrected Calcium 8.9 8.5-10.1 MG/DL Total Bilirubin 0.6 0.1-1.0 MG/DL Aspartate Amino Transf (AST/SGOT) 26 5-34 U/L Alanine Aminotransferase (ALT/SGPT) 17 0-55 U/L Alkaline Phosphatase 55 40-136 U/L Troponin I < 0.028 <0.028 NG/ML C-Reactive Protein High Sensitivity 1.96 H 0.00-0.50 MG/DL B-Type Natriuretic Peptide 851.3 H <100.0 PG/ML Total Protein 7.2 6.4-8.2 GM/DL Albumin 3.6 3.2-4.5 GM/DL Procalcitonin 0.21 H <0.10 NG/ML Influenza Type A (RT-PCR) Not Detected Not Detecte Influenza Type B (RT-PCR) Not Detected Not Detecte SARS-CoV-2 RNA (RT-PCR) Not Detected Not Detecte Blood Gas Puncture Site LRAD Blood Gas Patient Temperature 36.2 Arterial Blood pH 7.24 *L 7.37-7.43 Arterial Blood Partial Pressure CO2 89 *H 35-45 MMHG Arterial Blood Partial Pressure O2 87 79-93 MMHG Arterial Blood HCO3 37 H 23-27 MMOL/L Arterial Blood Total CO2 40.2 *H 21.0-31.0 MMOL/L Arterial Blood Oxygen Saturation 96 94-100 % Arterial Blood Base Excess 9.8 H -2.5-2.5 MMOL/L Jeff Test YES-POS Blood Gas Ventilator Setting NO Blood Gas Inspired Oxygen 6L My Orders Orders - BHAVNA MI 19 Inhouse Test (06/30/21 00:49) Influenza A And B By Pcr (06/30/21 00:49) Isolation Central Supply Req (06/30/21 00:49) Cbc With Automated Diff (06/30/21 00:49) Comprehensive Metabolic Panel (06/30/21 00:49) Hs C Reactive Protein (06/30/21 00:49) Procalcitonin (Pct) (06/30/21 00:49) BNP (06/30/21 00:49) Troponin I (06/30/21 00:49) Ekg Tracing (06/30/21 00:49) Continuous Ekg Monitoring (06/30/21 00:49) O2 (06/30/21 00:49) Bipap (Bilevel) Set Up (06/30/21 00:49) Ed Iv/Invasive Line Start (06/30/21 00:49) Arterial Blood Gas (06/30/21 00:54) Furosemide Injection (Lasix Injection) (06/30/21 01:30) Chest 1 View, Ap/Pa Only (06/30/21 01:41) Medications Given in ED Vital Signs/I&O 06/30/21 06/30/21 06/30/21 06/30/21 00:42 00:42 00:42 01:14 Temp 36.2 Pulse 60 70 Resp 18 19 B/P (MAP) 115/60 (78) Pulse Ox 95 95 96 O2 Delivery Nasal Cannula OxyMask OxyMask O2 Flow Rate 3.00 6.00 6.00 45.00 Capillary Refill : Progress Note : Time: 00:54 Progress Note Suspect CHF exacerbation. Will get chest x-ray and labs and put him on BiPAP. 40 mg Lasix IV 05/06, respiratory rate of 18 and FiO2 of 45% is keeping his oxygen saturations in the mid nineties. ECG Initial ECG Impression Date: Jun 30, 2021 Initial ECG Impression Time: 01:01 Initial ECG Rate: 59 Initial ECG Rhythm: Normal Sinus Initial ECG Intervals: Normal Initial ECG Impression: Normal, Nonspecific Changes Comment Normal sinus rhythm without clinically relevant ST changes. Diagnostic Imaging Diagonstic Imaging: Xray Plain Films/CT/US/NM/MRI: chest Comments [facility], [place] NAME: LUIS MANUEL RETANA [facility] REC#: [id number] PT STATUS: ADM IN : 1960 PHYSICIAN: BHAVNA MI MD ADMIT DATE: 06/30/21/ICU Signed Date of Exam:06/30/21 CHEST 1 VIEW, AP/PA ONLY EXAM: CHEST 1 VIEW, AP/PA ONLY INDICATION: Shortness of air. COMPARISON: Chest radiograph 04/14/2019. FINDINGS: Cardiomegaly with prominent pulmonary vascularity. No focal pulmonary opacity. No pleural effusion or pneumothorax. No significant change. IMPRESSION: Stable cardiomegaly with prominent pulmonary vascularity. No acute cardiopulmonary findings. Dictated by: Dictated on workstation # [id number] Dict: 06/30/2148 Trans: 06/30/2119 [id number] Interpreted by: PACHECO HAUSER MD Electronically signed by: PACHECO HAUSER MD 06/30/21818 Reviewed: Reviewed by Me Departure Communication (Admissions) Time/Spoke to Admitting Phy: 02:13 Discussed the case with Dr. Dixon who agrees to admit the patient the Lasix Impression Primary Impression: Acute and chronic respiratory failure Additional Impression: Acute on chronic heart failure Qualified Codes: I50.9 - Heart failure, unspecified Disposition: ADMITTED INPATIENT Condition: Stable Admissions Decision to Admit Reason: Admit from ER (Trauma) Decision to Admit/Date: Jun 30, 2021 Time/Decision to Admit Time: 01:49 Departure-Patient Inst. Referrals: ART CASANOVA DO (PCP/Family) Primary Care Physician BHAVNA MI Jun 30, 2021 00:54
[2021-06-30 00:58] LABS: BASOPHILS # (AUTO) 0.1 10^3/uL (0.0-0.1); BASOPHILS % (AUTO) 1 % (0-10); EOSINOPHILS # (AUTO) 0.2 10^3/uL (0.0-0.3); EOSINOPHILS % (AUTO) 2 % (0-10); HEMATOCRIT 51 % (40-54); HEMOGLOBIN 14.3 g/dL (13.3-17.7); LYMPHOCYTES # (AUTO) 2.1 10^3/uL (1.0-4.0); LYMPHOCYTES % (AUTO) 24 % (12-44); MEAN CORPUSCULAR HEMOGLOBIN 24 pg (25-34); MEAN CORPUSCULAR HGB CONC 28 g/dL (32-36); MEAN CORPUSCULAR VOLUME 85 fL (80-99); MEAN PLATELET VOLUME 9.7 fL (9.0-12.2); MONOCYTES % (AUTO) 11 % (0-12); NEUTROPHILS # (AUTO) 5.3 10^3/uL (1.8-7.8); NEUTROPHILS % (AUTO) 60 % (42-75); PLATELET COUNT 157 10^3/uL (130-400); WHITE BLOOD COUNT 8.7 10^3/uL (4.3-11.0)
[2021-06-30 00:58] LABS: ABG BASE EXCESS 9.8 MMOL/L (-2.5-2.5); ABG OXYGEN SATURATION 96 % (94-100); ABG PO2 87 MMHG (79-93)
[2021-06-30 00:59] LABS: ALLENS TEST YES-POS; INSPIRED O2 6L; VENTILATOR NO
[2021-06-30 01:00] LABS: ABG PCO2 89 MMHG (35-45); ABG PH 7.24 (7.37-7.43); PATIENT TEMP 36.2
[2021-06-30 01:01] LABS: ABG TCO2 40.2 MMOL/L (21.0-31.0)
[2021-06-30 01:09] LABS: ALBUMIN 3.6 GM/DL (3.2-4.5); CHLORIDE 94 MMOL/L (98-107); POTASSIUM 5.9 MMOL/L (3.6-5.0); SODIUM 136 MMOL/L (135-145)
[2021-06-30 01:10] LABS: CALCIUM 8.6 MG/DL (8.5-10.1)
[2021-06-30 01:12] LABS: GLUCOSE 109 MG/DL (70-105); TOTAL PROTEIN 7.2 GM/DL (6.4-8.2)
[2021-06-30 01:13] LABS: BILIRUBIN,TOTAL 0.6 MG/DL (0.1-1.0); CARBON DIOXIDE 33 MMOL/L (21-32)
[2021-06-30 01:14] VITALS: BP 108/64
[2021-06-30 01:15] LABS: ALKALINE PHOSPHATASE 55 U/L (40-136)
[2021-06-30 01:16] LABS: CREATININE SERUM 1.21 MG/DL (0.60-1.30); GFR ESTIMATED 61
[2021-06-30 01:17] LABS: BUN/CREATININE RATIO 20
[2021-06-30 01:19] LABS: ALANINE AMINOTRANSFERASE 17 U/L (0-55)
[2021-06-30] MEDS ORDERED: FUROSEMIDE 40 MG/4 ML INJ (LASIX) IVP ONE (01:30)
--- NOTE | 2021-06-30 03:01 | Tele-ICU Consult ---
History of Present Illness History of Present Illness Date Seen by Provider: Jun 30, 2021 Time Seen by Provider: 02:40 Date of Admission This virtual visit was conducted using real time audio/video. Thank you for asking us to see this patient for respiratory insufficiency and distress, CHF and possible AECOPD. HPC: Recent events: admitted from Rehab through ER with SOB, desaturation at facility PMH: COPD on O2 3 LPM, htn., HL, GERD, anx., dep., CHF, Hep C SH: smoking history: quit. Cocaine use. FH: Non-contributory. ROS: limited by patient's clinical condition, as in HPI. PE: Obese. VSS HR 67 BP 115/60 RR 19 O2 sat 96% on BiPAP 16/10 45 LPM. HEENT: No obvious masses, adenopathy or JVD. Chest: clear to auscultation. CV: RRR S1 S2 No murmur or added sounds. Abd: Non-tender. Bowel sounds Y. : Unremarkable. Aguilar N. MOVEMENT THERAPIST/psychiatric: Alert and oriented, grossly intact. No obvious focal findings. Extremities: No edema. Capillary refill < 3 seconds. Skin: unremarkable. Results: Elevated BNP 851, K 5.9. ABG 7.24/89/87 on 6 LPM. Covid neg. CXR hyperinflated. A/P: Available chart/ vitals / labs/images reviewed Video assessment done using teleICU camera, rest of exam as per RN Respiratory: Continue present management with PRN Duonebs, high flow O2. Monitor for increasing oxygenation needs and/or need for intubation. Critical Care: critically ill patient. Cont Lasix PRN. Discussed with SHUKRI Mccain. Asked RN to reach out to eICU if any questions or concerns later. Time spent with patient/coordination of care with other health professionals (mins): 35 Allergies and Home Medications Allergies Coded Allergies: No Known Drug Allergies (Unverified , 03/09/19) Home Medications Acetaminophen 325 Mg Tablet, 650 MG PO Q4H PRN for PAIN-MILD OR TEMPATURE, (Reported) Aripiprazole 15 Mg Tablet, 15 MG PO DAILY, (Reported) Aspirin 81 Mg Tablet.dr, 81 MG PO DAILY, (Reported) Benzonatate 200 Mg Capsule, 200 MG PO Q8H PRN for COUGH, (Reported) Budesonide/Formoterol Fumarate 10.2 Gm Hfa.aer.ad, 2 PUFF IH BID, (Reported) Carbamide Peroxide 15 Ml Drops, 5 DROPS EACH EAR Q12H PRN for WAX BUILD UP, (Reported) Carboxymethylcellulose Sodium 15 Ml Drops, 1 DROP OU Q4H PRN for DRY EYES, (Reported) Clonazepam 0.5 Mg Tablet, 0.5 MG PO BID, (Reported) Divalproex Sodium 125 Mg Cap.sprink, 125 MG PO TID, (Reported) Escitalopram Oxalate 20 Mg Tablet, 40 MG PO DAILY, (Reported) TAKES 2 (20MG) TABLETS Furosemide 20 Mg Tablet, 20 MG PO DAILY, (Reported) Ipratropium/Albuterol Sulfate 3 Ml Ampul.neb, 3 ML NEB Q6H PRN for SHORTNESS OF BREATH, (Reported) Lisinopril 10 Mg Tablet, 10 MG PO DAILY Prescribed by: ART CASANOVA on 04/17/19 0805 Metoprolol Tartrate 25 Mg Tablet, 25 MG PO BID, (Reported) HOLD FOR SYSTOLIC BP < 100 Multivitamin 1 Each Tablet, 1 TAB PO DAILY, (Reported) Ondansetron HCl 4 Mg Tab, 4 MG PO Q4H PRN for NAUSEA/VOMITING-1ST LINE, (Reported) Pantoprazole Sodium 40 Mg Tablet.dr, 40 MG PO DAILY, (Reported) Past Medical/Social/Family Hx Patient Social History Tobacco Use?: No Pt stated abuse/neglect: No Immunizations Up To Date First/Initial COVID19 Vaccinat: 11/10 Second COVID19 Vaccination Manuel: 12/11 Tetanus Booster (TDap): Unknown Date of Pneumonia Vaccine: March 04, 2018 Current Status Advance Directives: No Communicates: Verbally Primary Language: [place] Preferred Spoken Language: [place] Is interpretation needed?: No Implanted or Applied Medical D: None Review of Systems Constitutional: see HPI EENTM: see HPI Respiratory: see HPI Gastrointestinal: see HPI Genitourinary: see HPI Musculoskeletal: see HPI Skin: see HPI Psychiatric/Neurological: See HPI All Other Systems Reviewed Negative Unless Noted: Yes Sepsis Event Evaluation Height, Weight, BMI Height: 5'5.00" Weight: 203lbs. 7.0oz. 92.107105yq; 34.00 BMI Method:Stated Exam Exam Patient acknowledged, consented, and participated in this virtual visit which was conducted using real time audio/video Vital Signs Date Time Temp Pulse Resp B/P (MAP) Pulse Ox O2 Delivery O2 Flow Rate FiO2 06/30/21 01:14 70 19 96 45.00 06/30/21 00:42 95 OxyMask 6.00 06/30/21 00:42 36.2 60 18 115/60 (78) 95 OxyMask 6.00 06/30/21 00:42 Nasal Cannula 3.00 Height & Weight Height: 5'5.00" Weight: 203lbs. 7.0oz. 92.087449vp; 34.00 BMI Method:Stated General Appearance: Moderate Distress (see free text) Capillary Refill: Less Than 3 Seconds Peripheral Pulses: 1+ Dorsalis Pedis (R), 1+ Left Dors-Pedis (L) Results Lab Laboratory Tests 06/30/21 00:46 Assessment/Plan Assessment/Plan See free text. Critical Care: Critically Ill Patient Time spent on discussion(mins): 0 THEO DEWITT MD Jun 30, 2021 03:01
[2021-06-30 04:37] LABS: ABG BASE EXCESS 11.4 MMOL/L (-2.5-2.5); ABG OXYGEN SATURATION 98 % (94-100); ABG PCO2 60 MMHG (35-45); ABG PO2 66 MMHG (79-93); ABG TCO2 38.5 MMOL/L (21.0-31.0); ALLENS TEST YES-POS; INSPIRED O2 75%; PATIENT TEMP 36.4; VENTILATOR YES
[2021-06-30 05:50] LABS: BASOPHILS % (AUTO) 0 % (0-10); EOSINOPHILS # (AUTO) 0.2 10^3/uL (0.0-0.3); EOSINOPHILS % (AUTO) 3 % (0-10); HEMATOCRIT 52 % (40-54); HEMOGLOBIN 14.2 g/dL (13.3-17.7); LYMPHOCYTES # (AUTO) 1.5 10^3/uL (1.0-4.0); LYMPHOCYTES % (AUTO) 21 % (12-44); MEAN CORPUSCULAR HEMOGLOBIN 23 pg (25-34); MEAN CORPUSCULAR HGB CONC 27 g/dL (32-36); MEAN CORPUSCULAR VOLUME 86 fL (80-99); MEAN PLATELET VOLUME 10.3 fL (9.0-12.2); MONOCYTES # (AUTO) 0.8 10^3/uL (0.0-1.0); MONOCYTES % (AUTO) 10 % (0-12); NEUTROPHILS # (AUTO) 4.6 10^3/uL (1.8-7.8); NEUTROPHILS % (AUTO) 64 % (42-75); PLATELET COUNT 157 10^3/uL (130-400); WHITE BLOOD COUNT 7.2 10^3/uL (4.3-11.0)
[2021-06-30 06:06] LABS: ALBUMIN 3.6 GM/DL (3.2-4.5)
[2021-06-30 06:07] LABS: CALCIUM 8.6 MG/DL (8.5-10.1)
[2021-06-30 06:09] LABS: TOTAL PROTEIN 6.9 GM/DL (6.4-8.2)
[2021-06-30] MEDS: POTASSIUM CL 10MEQ/50ML IVPB 50 ML IV SCH (06:09)
[2021-06-30] MEDS: MAGNESIUM 1 GM/100 ML IVPB 100 ML IV SCH (06:09)
[2021-06-30] MEDS: KCL 20 MEQ TAB (K-DUR) PO SCH (06:09)
[2021-06-30 06:11] LABS: BILIRUBIN,TOTAL 0.6 MG/DL (0.1-1.0)
[2021-06-30 06:12] LABS: CREATININE SERUM 1.22 MG/DL (0.60-1.30)
[2021-06-30 06:16] LABS: MAGNESIUM 1.9 MG/DL (1.6-2.4)
[2021-06-30 06:29] VITALS: BP 97/43
--- NOTE | 2021-06-30 06:54 | Diagnostic Imaging Report ---
EXAM: CHEST 1 VIEW, AP/PA ONLY INDICATION: Shortness of air. COMPARISON: Chest radiograph 04/14/2019. FINDINGS: Cardiomegaly with prominent pulmonary vascularity. No focal pulmonary opacity. No pleural effusion or pneumothorax. No significant change. IMPRESSION: Stable cardiomegaly with prominent pulmonary vascularity. No acute cardiopulmonary findings. Dictated by: Dictated on workstation # [id number]
[2021-06-30] MEDS: FUROSEMIDE 40 MG/4 ML INJ (LASIX) IVP SCH ×2 (07:01→17:47)
[2021-06-30] MEDS: ENOXAPARIN 40 MG/0.4 ML (LOVENOX) SYR SC SCH (08:52)
--- NOTE | 2021-06-30 09:20 | History & Physical-Hospitalist ---
History of Present Illness HPI/Chief Complaint Pt is a 61yoCM with a PMH of CHF, COPD, HTN, GERD, depression, and bipolar disorder who presented to the ER due to hypoxia. He is unable to give me any history secondary to his clinical status and being on BiPAP so all history is obtained from the records. Apparently he was found to have oxygen saturations on his baseline 3 L in the 70s yesterday. EMS was summoned and they found him to be hypoxic to the 60s. He was given a DuoNeb and brought to the emergency room where he was placed on 6 L. ABG revealed marked hypercapnia and he was placed on BiPAP and admitted to the ICU. Imaging revealed prominent pulmonary vascularity and he was given 40 of Lasix. He remains on BiPAP though hypoxia is improved and he has been weaned down to 45% FiO2. Source: patient Date Seen 06/30/21 Time Seen by a Provider: 09:14 Attending Physician Arturo Dixon MD PCP Abelino Lacey DO Referring Physician Date of Admission Jun 30, 2021 at 02:15 Home Medications & Allergies Home Medications Reviewed patient Home Medication Reconciliation performed by pharmacy medication reconciliations injection molding process technician and/or nursing. Patients Allergies have been reviewed. Allergies Allergies Coded Allergies No Known Drug Allergies (Unverified03/09/19) Past Ntxlbvh-Lohvrh-Eojagw Hx Patient Social History Employed/Student: unemployed Tobacco Use?: No Smoking Status: Former Smoker Pt feels they are or have been: Unable to obtain Immunizations Up To Date Date of Influenza Vaccine: Jan 05, 2019 First/Initial COVID19 Vaccinat: 11/10 Second COVID19 Vaccination Manuel: 12/11 Tetanus Booster (TDap): Unknown Date of Pneumonia Vaccine: March 04, 2018 Seasonal Allergies Seasonal Allergies: No Current Status Advance Directives: Unable to obtain Communicates: Verbally Primary Language: [place] Citizen Preferred Spoken Language: [place] Citizen Is interpretation needed?: No Implanted or Applied Medical D: None Past Medical History Pneumonia, COPD Hypertension Gastroesophageal Reflux, Hepatitis Colon Anxiety, Violent Behavior, Depression Blood Disorders: Yes (HEP C ) Family Medical History Reviewed Nursing Family Hx Patient reports no known family medical history. No Pertinent Family Hx Review of Systems ROS-Unable to Obtain: clinical condition Constitutional: see HPI Physical Exam Physical Exam Vital Signs Vital Signs - First Documented 06/30/21 04:00 FiO2 55 Capillary Refill : Less Than 3 Seconds Height, Weight, BMI Height: 5'5.00" Weight: 203lbs. 7.0oz. 92.394256hw; 36.98 BMI Method:Stated General Appearance: No Apparent Distress, Chronically ill, Obese HEENT: PERRL/EOMI; No Scleral Icterus (L), No Scleral Icterus (R); Other (obscured by biPAP mask) Neck: Normal Inspection, Supple Respiratory: No Accessory Muscle Use; No Crackles; Decreased Breath Sounds, Other (on BiPAP) Cardiovascular: Regular Rate, Rhythm, No Murmur Gastrointestinal: Normal Bowel Sounds, Non Tender, Soft Extremity: No Calf Tenderness, No Pedal Edema Neurologic/Psychiatric: Alert, Oriented x3 Skin: Normal Color, Warm/Dry Results Results/Procedures Labs Laboratory Tests 06/30/21 00:46 06/30/21 05:30 Patient resulted labs reviewed. Imaging: Reviewed Imaging Report Assessment/Plan Admission Diagnosis Acute on Chronic hypoxic respiratory failure due to CHF exacerbation Admission Status: Inpatient Order (span 2 midnights) Reason for Inpatient Admission: see below Assessment and Plan Acute on Chronic hypoxic respiratory failure due to CHF exacerbation HTN HLD CAD Contineu on BiPAP, attempt to weanto Vapotherm later today BNP elevated at 851 TeleICU consulted Continue Lasix Cardiology consult, appreciate recs Monitor UOP Last echo from 2019 with grade 1 diastolic dysfunction, will repeat Continue home meds as able COPD without acute exacerbation No wheezing or cough 3lpm baselin MAT protocol Bipolar disorder Continue home meds, no acute needs DVT ppx: Lovenox Diagnosis/Problems Diagnosis/Problems (1) CAD (coronary artery disease) (2) HLD (hyperlipidemia) (3) COPD (chronic obstructive pulmonary disease) (4) Hypertension (5) Obesity (6) Prophylactic measure (7) Bipolar disorder (8) Acute on chronic heart failure Status: Acute Qualifiers: Heart failure type: unspecified Qualified Codes: I50.9 - Heart failure, unspecified (9) Acute and chronic respiratory failure Status: Acute ANA LAURA STUBBS MD Jun 30, 2021 09:20
[2021-06-30 10:18] VITALS: BP 100/57
[2021-06-30] MEDS ORDERED: DEXT15LI5 PO (10:21)
[2021-06-30] MEDS ORDERED: ESCI20TA39 PO (10:21)
[2021-06-30] MEDS ORDERED: LISI10TA25 PO (10:21)
--- NOTE | 2021-06-30 13:10 | Progress Note ---
ROBERT SANCHEZ MED STUDENT 06/30/21 1310: Subjective Date Seen by a Provider: Jun 30, 2021 Time Seen by a Provider: 07:15 Subjective/Events-last exam Patient on BIPAP at 16/10 and 45%. Is a poor historian currently. Denies pain, fevers, chills, nausea, vomiting, headache, and SOB. Vitals stable per bedside monitor. Review of Systems General: No Chills, No Night Sweats HEENT: No Head Aches, No Visual Changes Pulmonary: No Dyspnea, No Cough Cardiovascular: No: Chest Pain, Palpitations, Edema Gastrointestinal: No: Nausea, Vomiting, Abdominal Pain Genitourinary: No Dysuria, No Frequency Musculoskeletal: No: neck pain, back pain Neurological: No: Weakness, Numbness Objective Exam Last Set of Vital Signs Vital Signs Date Time Temp Pulse Resp B/P (MAP) Pulse Ox O2 Delivery O2 Flow Rate FiO2 06/30/21 12:00 36.0 06/30/21 12:00 52 86/63 94 Vapotherm 30.00 50.00 06/30/21 10:18 18 06/30/21 08:26 50 Capillary Refill : Less Than 3 Seconds Results Lab Laboratory Tests 06/30/21 00:46: White Blood Count 8.7, Red Blood Count 6.01H, Hemoglobin 14.3, Hematocrit 51, Mean Corpuscular Volume 85, Mean Corpuscular Hemoglobin 24L, Mean Corpuscular Hemoglobin Concent 28L, Red Cell Distribution Width 20.4H, Platelet Count 157, Mean Platelet Volume 9.7, Immature Granulocyte % (Auto) 2, Neutrophils (%) (Au to) 60, Lymphocytes (%) (Auto) 24, Monocytes (%) (Auto) 11, Eosinophils (%) (Auto) 2, Basophils (%) (Auto) 1, Neutrophils # (Auto) 5.3, Lymphocytes # (Auto) 2.1, Monocytes # (Auto) 1.0, Eosinophils # (Auto) 0.2, Basophils # (Auto) 0.1, Immature Granulocyte # (Auto) 0.1, Sodium Level 136, Potassium Level 5.9H, Chloride Level 94L, Carbon Dioxide Level 33H, Anion Gap 9, Blood Urea Nitrogen 24H, Creatinine 1.21, Estimat Glomerular Filtration Rate 61, BUN/Creatinine Ratio 20, Glucose Level 109H, Calcium Level 8.6, Corrected Calcium 8.9, Total Bilirubin 0.6, Aspartate Amino Transf (AST/SGOT) 26, Alanine Aminotransferase (ALT/SGPT) 17, Alkaline Phosphatase 55, Troponin I < 0.028, C-Reactive Protein High Sensitivity 1.96H, B-Type Natriuretic Peptide 851.3H, Total Protein 7.2, Albumin 3.6, Procalcitonin 0.21H, Influenza Type A (RT-PCR) Not Detected, Inf luenza Type B (RT-PCR) Not Detected, SARS-CoV-2 RNA (RT-PCR) Not Detected 06/30/21 00:48: Blood Gas Puncture Site LRAD, Blood Gas Patient Temperature 36.2, Arterial Blood pH 7.24*L, Arterial Blood Partial Pressure CO2 89*H, Arterial Blood Partial Pressure O2 87, Arterial Blood HCO3 37H, Arterial Blood Total CO2 40.2*H, Arterial Blood Oxygen Saturation 96, Arterial Blood Base Excess 9.8H, Jeff Test YES-POS, Blood Gas Ventilator Setting NO, Blood Gas Inspired Oxygen 6L 06/30/21 04:24: Blood Gas Puncture Site LT RADIAL, Blood Gas Patient Temperature 36.4, Arterial Blood pH 7.40, Arterial Blood Partial Pressure CO2 60H, Arterial Blood Partial Pressure O2 66L, Arterial Blood HCO3 37H, Arterial Blood Total CO2 38.5H, Arterial Blood Oxygen Saturation 98, Arterial Blood Base Excess 11.4H, Jeff Test YES-POS, Blood Gas Ventilator Setting YES, Blood Gas Inspired Oxygen 75% 06/30/21 05:30: White Blood Count 7.2, Red Blood Count 6.08H, Hemoglobin 14.2, Hematocrit 52, Mean Corpuscular Volume 86, Mean Corpuscular Hemoglobin 23L, Mean Corpuscular Hemoglobin Concent 27L, Red Cell Distribution Width 20.4H, Platelet Count 157, Mean Platelet Volume 10.3, Immature Granulocyte % (Auto) 2, Neutrophils (%) (Auto) 64, Lymphocytes (%) (Auto) 21, Monocytes (%) (Auto) 10, Eosinophils (%) (Auto) 3, Basophils (%) (Auto) 0, Neutrophils # (Auto) 4.6, Lymphocytes # (Auto) 1.5, Monocytes # (Auto) 0.8, Eosinophils # (Auto) 0.2, Basophils # (Auto) 0.0, Immature Granulocyte # (Auto) 0.1, Sodium Level 137, Potassium Level 5.0, Chloride Level 94L, Carbon Dioxide Level 38H, Anion Gap 5, Blood Urea Nitrogen 23H, Creatinine 1.22, Estimat Glomerular Filtration Rate 60, BUN/Creatinine Ratio 19, Glucose Level 98, Calcium Level 8.6, Corrected Calcium 8.9, Total Bilirubin 0.6, Aspartate Amino Transf (AST/SGOT) 18, Alanine Aminotransferase (ALT/SGPT) 15, Alkaline Phosphatase 56, Total Protein 6.9, Albumin 3.6, Phosphorus Level 4.0, Magnesium Level 1.9 Assessment/Plan Assessment/Plan Assess & Plan/Chief Complaint Acute on Chronic hypoxic respiratory failure due to CHF exacerbation -covid and flu negative -06-30 cxray no acute cardiopulm abnormality -BIPAP currently at 16/10 and 45% -wean as tolerated -BNP elevated at 851 -lasix 40mg daily -echo from 2018 showed grade 1 diastolic dysfunction -obtain new echo -consult cards -1L fluid restriction/day - I and O's strict Bradycardia -HR in the 50's -BP's soft, continue to monitor COPD -baseline 02 dependent at 3lnc -IS q2hr [place] CAD HTN HLP Bipolar disorder H/O Hep C -continue home meds DVT ppx - Lovenox GINGER EMERSON DO 07/01/21 0559: Supervisory-Addendum Brief Verification & Attestation Participated in pt care: history, MDM, physical Personally performed: exam, history, MDM, supervision of care Care discussed with: Medical Student Procedures: n/a Results interpretation: Verified all documentation Verification and Attestation of Medical Student E/M Service A medical student performed and documented this service in my presence. I reviewed and verified all information documented by the medical student and made modifications to such information, when appropriate. I personally performed the physical exam and medical decision making. Ginger Emerson, Jul 01, 2021,05:59 ROBERT SANCHEZ MED STUDENT Jun 30, 2021 13:10 GINGER EMERSON DO Jul 01, 2021 05:59
--- NOTE | 2021-06-30 14:46 | Physical Therapy Evaluation ---
PT Evaluation-General Medical Diagnosis Admission Date Jun 30, 2021 at 02:15 Medical Diagnosis: MH of CHF, COPD, HTN, GERD, depression, and bipolar disorder, hypoxia Onset Date: Jun 29, 2021 Therapy Diagnosis Therapy Diagnosis: Gait deficit, strength deficit Height/Weight Height (Feet): 5 Height (Inches): 5.00 Weight (Pounds): 203 Weight (Ounces): 7.0 Precautions Precautions/Isolations: Fall Prevention, Standard Precautions Referral Physician: Dr. Alberts Reason for Referral: Evaluation/Treatment Medical History Pertinent Medical History: COPD, GERD, HTN, Smoking Social History Home: Single Level Current Living Status: Alone Entry Into Home: Stairs With Railing PT Steps Into Home: 4 Prior Prior Level of Function SCALE: Activities may be completed with or without assistive devices. 1-Hjkqklqvow-kigufbq completes the activity by him/herself with no assistance from a helper. 5-Set-up or Clean-up Assistance-helper sets up or cleans up; patient completes activity. [place] assists only prior to or following the activity. 4-Supervision or Touching Assistance-helper provides verbal cues and/or touching/steadying and/or contact guard assistance as patient completes activity. Assistance may be provided throughout the activity or intermittently. 3-Partial/Moderate Assistance-helper does LESS THAN HALF the effort. [place] lifts, holds or supports trunk or limbs, but provides less than half the effort. 2-Substantial/Maximal Assistance-helper does MORE THAN HALF the effort. [place] lifts or holds trunk or limbs and provides more than half the effort. 1-Giwyhroab-onptox does ALL the effort. Patient does none of the effort to complete the activity. Or, the assistance of 2 or more helpers is required for the patient to complete the activity. If activity was not attempted, code reason: 7-Patient Refused. 9-Not Applicable-not attempted and the patient did not perform the activity before the current illness, exacerbation or injury. 10-Not Attempted due to Environmental Limitations-(lack of equipment, weather restraints, etc.). 88-Not Attempted due to Medical Conditions or Safety Concerns. Bed Mobility: 6 Transfers (B,C,W/C): 6 Gait: 6 Stairs: 6 Indoor Mobility (Ambulation): Independent Stairs: Independent Prior Devices Use: None PT Evaluation-Current Subjective Patient difficult to understand as he mumbles and repeats his words often. He appears to report he has no pain at this time. Objective Patient Orientation: Person ROM/Strength ROM Lower Extremities WFL bilaterally all planes with AROM Strength Lower Extremities 3+/5 bilaterally all planes Sensory Sensation Right Lower Extremit: Intact Sensation Left Lower Extremity: Intact Transfers Roll Left to Right (QC): 3 Sit to Lying (QC): 3 Lying to Sitting/Side of Bed(Q: 3 Sit to Stand (QC): 3 Gait Does the Patient Walk?: Yes Mode of Locomotion: Walk Anticipated Mode of Locomotion: Walk Walk 10 feet (QC): 88 Distance: 3 ft Comments/Gait Description Patient able to sidestep 3 feet to move higher in the bed. Balance Sitting Static: Fair Sitting Dynamic: Fair Standing Static: Fair Standing Dynamic: Fair Assessment/Needs Patient lying supine in bed upon PT arrival, agreeable to treatment. Requires Min A for all observed bed mobility and transfers and verbal cues due to him being impulsive and unsafe at times. Patient performs LE therapeutic exercise of AROM all planes bilaterally. Patient performs sit to stand and sidesteps 3 feet towards the head of the bed with min A. Patient in bed post treatment with all needs met, nursing notified, call light in hand. Rehab Potential: Fair PT Short Term Goals Short Term Goals Time Frame: Jul 14, 2021 Roll Left & Right: 4 Sit to lyin Lying to sitting on side of be: 4 Sit to stand: 4 Chair/pki-rw-dwvgy transfer: 4 Toilet transfer: 4 Walk 10 feet: 4 Walk 50 feet with two turns: 3 PT Custodial Goals Custodial Goals PT [employer] Treating Unit Operator Goals Time Frame: Aug 18, 2021 Roll Left & Right (QC): 5 Sit to Lying (QC): 5 Lying-Sitting on Side/Bed(QC): 5 Sit to Stand (QC): 5 Chair/Hhk-sg-Rcdqk Xfer(QC): 5 Toilet Transfer (QC): 5 Does the Patient Walk: Yes Walk 10 feet (QC): 5 Walk 50ft with 2 Turns (QC): 5 Walk 150 ft (QC): 5 1 Step (curb) (QC): 5 4 Steps (QC): 5 PT Plan Problem List Problem List: Activity Tolerance, Functional Strength, Safety, Balance, Gait, Transfer, Bed Mobility, ROM Treatment/Plan Treatment Plan: Continue Plan of Care Treatment Plan: Bed Mobility, Concurrent Therapy, Education, Functional Activity Gracy, Functional Strength, Group Therapy, Gait, Safety, Therapeutic Exercise, Transfers Treatment Duration: Sep 15, 2021 Frequency: 6 times per week Estimated Hrs Per Day: .25 hour per day Safety Risks/Education Patient Education: Gait Training, Transfer Techniques Teaching Recipient: Patient Teaching Methods: Demonstration, Discussion Response to Teaching: Verbalize Understanding, Reinforcement Needed Time/GCodes Time In: 1325 Time Out: 1355 Total Billed Treatment Time: 30 Total Billed Treatment Visit, Denise Sky JOHN A PT Jun 30, 2021 14:46
--- NOTE | 2021-06-30 16:17 | Consultation-Cardiology ---
HPI-Cardiology Cardiology Consultation: Date of Consultation 06/30/2021 Date of Admission 06/30/2020 Attending Physician Arturo Dixon MD Admitting Physician Art Casanova DO Consulting Physician JUSTIN FOOTE JR, MD HPI: Time Seen by a Provider: 16:12 Chief Complaint: Reason for consultation: Heart failure Alex is a 61-year-old male with a history of chronic diastolic heart failure, chronic obstructive pulmonary disease, hypertension, previous cigarette smoking, and bipolar disorder. According to his nurse, he resides in a local skilled care facility. As not able to obtain much history from the patient due to his mental status. He tells me he came to the hospital due to worsening shortness of breath. When he arrived in the emergency room he had hypoxia and was placed on BiPAP. He is now in the intensive care unit on Vapotherm. He is about to be transferred to the general medical floor. He states that he is still somewhat short of breath but feels better. He denies chest discomfort. He also complains of some mild ankle edema. He denies paroxysmal nocturnal dyspnea, orthopnea, palpitations, or syncope. However, due to his mental status, his answers may not be reliable. The majority of the history I obtained from the patient's nurse and the electronic medical record. Certain portions of this document may have been dictated utilizing voice recognition technology. Inherent to this technology, typographical and grammatical errors may exist. As much as I am diligent to identify and correct these mistakes, some errors may remain in the document. Review of Systems-Cardiology Review of Systems Other comments Not obtainable due to altered mental status. All Other Systems Reviewed Negative Unless Noted: Yes TUR-[id number]-[id number] Hx Patient Social History Employed/Student: unemployed Smoking Status: Former Smoker 2nd Hand Smoke Exposure: No Have you traveled recently?: Unable to obtain Pt feels they are or have been: Unable to obtain Immunizations Up To Date Tetanus Booster (TDap): Unknown Date of Pneumonia Vaccine: March 04, 2018 Date of Influenza Vaccine: Jan 05, 2019 Past Medical History PMH As described under Assessment. Family Medical History Family Medical History: The patient does not know of any family history of premature coronary artery disease. However, as above, due to altered mental status, his answers may not be reliable. Family History: Patient reports no known family medical history. Allergies and Home Medications Allergies Coded Allergies: No Known Drug Allergies (Unverified , 03/09/19) Patient Home Medication List Home Medication List Reviewed: Yes Acetaminophen (Tylenol) 325 Mg Tablet, 650 MG PO Q4H PRN for PAIN-MILD OR TEMPATURE, (Reported) Entered as Reported by: KAMRAN SILVA on 02/03/19 1527 Last Action: Reviewed Aripiprazole (Abilify) 15 Mg Tablet, 15 MG PO DAILY, (Reported) Entered as Reported by: MILA ADAMSON on 04/13/19 0942 Last Action: Reviewed Aspirin (Aspirin EC) 81 Mg Tablet.dr, 81 MG PO DAILY, (Reported) Entered as Reported by: KAMRAN SILVA on 06/18/17 0950 Last Action: Reviewed Benzonatate (Benzonatate) 200 Mg Capsule, 200 MG PO TID, (Reported) Entered as Reported by: KAMRAN SILVA on 06/18/17949 Last Action: Reviewed Budesonide/Formoterol Fumarate (Symbicort 160-4.5 Mcg Inhaler) 10.2 Gm Hfa.aer.ad, 2 PUFF IH BID, (Reported) Entered as Reported by: KAMRAN SILVA on 06/18/1750 Last Action: Reviewed Carbamide Peroxide (Debrox) 15 Ml Drops, 5 DROPS EACH EAR Q12H PRN for WAX BUILD UP, (Reported) Entered as Reported by: KAMRAN SILVA on 12/29/18 1308 Last Action: Reviewed Carboxymethylcellulose Sodium (Refresh Tears) 15 Ml Drops, 1 DROP OU Q4H PRN for DRY EYES, (Reported) Entered as Reported by: KAMRAN SILVA on 09/25/18927 Last Action: Reviewed Clonazepam (Clonazepam) 0.5 Mg Tablet, 0.5 MG PO BID, (Reported) Entered as Reported by: KAMRAN SILVA on 09/25/18927 Last Action: Reviewed Dextromethorphan HBr (Tussin Cough) 15 Mg/5 Ml Liquid, 10 ML PO Q12H PRN for COUGH, (Reported) Entered as Reported by: MILA ADAMSON on 06/30/21 1021 Last Action: Reviewed Divalproex Sodium (Divalproex Sodium) 125 Mg Cap.sprink, 125 MG PO 0900,1300,1700, (Reported) Entered as Reported by: KAMRAN SILVA on 09/25/18927 Last Action: Last Taken Edited Escitalopram Oxalate (Escitalopram Oxalate) 20 Mg Tablet, 30 MG PO DAILY, (Reported) Entered as Reported by: MILA ADAMSON on 06/30/21 102 Last Action: Reviewed Furosemide (Lasix) 20 Mg Tablet, 20 MG PO DAILY, (Reported) Entered as Reported by: KAMRAN SILVA on 06/18/17949 Last Action: Reviewed Ipratropium/Albuterol Sulfate (Iprat-Albut 0.5-3(2.5) mg/3 ml) 3 Ml Ampul.neb, 3 ML NEB Q6H PRN for SHORTNESS OF BREATH, (Reported) Entered as Reported by: KAMRAN SILVA on 06/18/17949 Last Action: Reviewed Lisinopril (Lisinopril) 10 Mg Tablet, 10 MG PO DAILY, (Reported) Entered as Reported by: MILA ADAMSON on 06/30/21 102 Last Action: Reviewed Metoprolol Tartrate (Metoprolol Tartrate) 25 Mg Tablet, 25 MG PO BID, (Reported) Entered as Reported by: KAMRAN SILVA on 06/18/17949 Last Action: Last Taken Edited Multivitamin (Multi-Vitamin Daily) 1 Each Tablet, 1 TAB PO DAILY, (Reported) Entered as Reported by: KAMRAN SILVA on 12/29/18 1308 Last Action: Reviewed Ondansetron HCl (Zofran) 4 Mg Tab, 4 MG PO Q4H PRN for NAUSEA/VOMITING-1ST LINE, (Reported) Entered as Reported by: KAMRAN SILVA on 09/25/18927 Last Action: Reviewed Pantoprazole Sodium (Protonix) 40 Mg Tablet.dr, 40 MG PO DAILY, (Reported) Entered as Reported by: KAMRAN SILVA on 06/18/17949 Last Action: Reviewed Discontinued Medications Escitalopram Oxalate (Lexapro) 20 Mg Tablet, 40 MG PO DAILY, (Reported) Discontinued Reason: No Longer Taking Entered as Reported by: KAMRAN SILVA on 06/18/17949 Last Action: Discontinued Lisinopril (Lisinopril) 10 Mg Tablet, 10 MG PO DAILY Discontinued Reason: Duplicate Order Prescribed by: ART CASANOVA on 04/17/19 0805 Last Action: Discontinued Exam Vital Signs Vital Signs Date Time Temp Pulse Resp B/P (MAP) Pulse Ox O2 Delivery O2 Flow Rate FiO2 06/30/21 15:53 36.4 06/30/21 15:07 Vapotherm 30.00 55.00 06/30/21 14:11 96 60 06/30/21 14:00 62 119/70 06/30/21 10:18 18 Physical Exam General: Somnolent. Arousable to voice. No acute distress. Well nourished and appears stated age. On high flow oxygen. He is obese. Eye: Extraocular movements are intact. Conjunctivae are clear. There are no xanthelasma. HENT: Normocephalic. Atraumatic. Carotid pulsations 2/2 without bruits. Neck: Jugular venous pressure does not appear elevated. No thyromegaly appreciated. Respiratory: Lungs have scattered bilateral wheezes. Respirations are non- labored. Breath sounds are equal. Symmetrical chest wall expansion. Cardiovascular: Normal rate. Regular rhythm. Distant S1/S2 no murmur. No gallop. Point of maximal impulse is not appear displaced. Good pulses equal in all extremities. 1+ bilateral pretibial edema. Gastrointestinal: Soft. Normal bowel sounds. Skin: Skin turgor is normal. There is no pallor. Musculoskeletal: No kyphosis or scoliosis appreciated. Neurologic: Somnolent and oriented to person and place only. Cranial nerves 3-12 appear grossly intact. The patient has good motor tone strength in the upper and lower extremities bilaterally. Psychiatric: Somnolent. Labs Laboratory Tests Test 06/30/21 00:46 06/30/21 00:48 06/30/21 04:24 06/30/21 05:30 Range/Units White Blood Count 8.7 7.2 4.3-11.0 10^3/uL Red Blood Count 6.01 H 6.08 H 4.30-5.52 10^6/uL Hemoglobin 14.3 14.2 13.3-17.7 g/dL Hematocrit 51 52 40-54 % Mean Corpuscular Volume 85 86 80-99 fL Mean Corpuscular Hemoglobin 24 L 23 L 25-34 pg Mean Corpuscular Hemoglobin Concent 28 L 27 L 32-36 g/dL Red Cell Distribution Width 20.4 H 20.4 H 10.0-14.5 % Platelet Count 157 157 130-400 10^3/uL Mean Platelet Volume 9.7 10.3 9.0-12.2 fL Immature Granulocyte % (Auto) 2 2 % Neutrophils (%) (Auto) 60 64 42-75 % Lymphocytes (%) (Auto) 24 21 12-44 % Monocytes (%) (Auto) 11 10 0-12 % Eosinophils (%) (Auto) 2 3 0-10 % Basophils (%) (Auto) 1 0 0-10 % Neutrophils # (Auto) 5.3 4.6 1.8-7.8 10^3/uL Lymphocytes # (Auto) 2.1 1.5 1.0-4.0 10^3/uL Monocytes # (Auto) 1.0 0.8 0.0-1.0 10^3/uL Eosinophils # (Auto) 0.2 0.2 0.0-0.3 10^3/uL Basophils # (Auto) 0.1 0.0 0.0-0.1 10^3/uL Immature Granulocyte # (Auto) 0.1 0.1 0.0-0.1 10^3/uL Sodium Level 136 137 135-145 MMOL/L Potassium Level 5.9 H 5.0 3.6-5.0 MMOL/L Chloride Level 94 L 94 L 98-107 MMOL/L Carbon Dioxide Level 33 H 38 H 21-32 MMOL/L Anion Gap 9 5 5-14 MMOL/L Blood Urea Nitrogen 24 H 23 H 7-18 MG/DL Creatinine 1.21 1.22 0.60-1.30 MG/DL Estimat Glomerular Filtration Rate 61 60 BUN/Creatinine Ratio 20 19 Glucose Level 109 H 98 70-105 MG/DL Calcium Level 8.6 8.6 8.5-10.1 MG/DL Corrected Calcium 8.9 8.9 8.5-10.1 MG/DL Total Bilirubin 0.6 0.6 0.1-1.0 MG/DL Aspartate Amino Transf (AST/SGOT) 26 18 5-34 U/L Alanine Aminotransferase (ALT/SGPT) 17 15 0-55 U/L Alkaline Phosphatase 55 56 40-136 U/L Troponin I < 0.028 <0.028 NG/ML C-Reactive Protein High Sensitivity 1.96 H 0.00-0.50 MG/DL B-Type Natriuretic Peptide 851.3 H <100.0 PG/ML Total Protein 7.2 6.9 6.4-8.2 GM/DL Albumin 3.6 3.6 3.2-4.5 GM/DL Procalcitonin 0.21 H <0.10 NG/ML Influenza Type A (RT-PCR) Not Detected Not Detecte Influenza Type B (RT-PCR) Not Detected Not Detecte SARS-CoV-2 RNA (RT-PCR) Not Detected Not Detecte Blood Gas Puncture Site LRAD LT RADIAL Blood Gas Patient Temperature 36.2 36.4 Arterial Blood pH 7.24 *L 7.40 7.37-7.43 Arterial Blood Partial Pressure CO2 89 *H 60 H 35-45 MMHG Arterial Blood Partial Pressure O2 87 66 L 79-93 MMHG Arterial Blood HCO3 37 H 37 H 23-27 MMOL/L Arterial Blood Total CO2 40.2 *H 38.5 H 21.0-31.0 MMOL/L Arterial Blood Oxygen Saturation 96 98 94-100 % Arterial Blood Base Excess 9.8 H 11.4 H -2.5-2.5 MMOL/L Jeff Test YES-POS YES-POS Blood Gas Ventilator Setting NO YES Blood Gas Inspired Oxygen 6L 75% Phosphorus Level 4.0 2.3-4.7 MG/DL Magnesium Level 1.9 1.6-2.4 MG/DL Radiology ECHOCARDIOGRAM: Normal ventricular systolic function with an estimated ejection of 55-60%. Diastolic function indeterminate. The pulmonary artery pressure cannot be estimated on this study due to inadequate tricuspid regurgitant envelope. ECG Impression ECG Comment Sinus rhythm with nonspecific anterior T wave changes. Diagnosis/Problems Diagnosis/Problems (1) Acute on chronic diastolic heart failure Assessment & Plan: His BNP level is mildly elevated although he does not have overt pulmonary edema on his chest x-ray. He may have some mild decompensation of his chronic heart failure with preserved ejection fraction. He was given 1 dose of IV furosemide in the emergency room and is now ordered for daily IV furosemide. I suspect he will only need this for 1-2 days. I suspect the majority of his respiratory failure is related to his chronic obstructive pulmonary disease and not heart failure. (2) Acute on chronic respiratory failure with hypoxemia Assessment & Plan: As above, I suspect the majority of his decompensation was related to an exacerbation of his chronic obstructive pulmonary disease. He has now been weaned off BiPAP and will be transferred to the medical floor. Hospitalist is managing the pulmonary disease. (3) Primary hypertension Assessment & Plan: He is presently normotensive on no medication. We will watch his blood pressures closely. If his blood pressures become elevated, resume HEIDI inhibitor. We might want to avoid resuming beta-agatha due to his chronic obstructive pulmonary disease. (4) COPD (chronic obstructive pulmonary disease) Assessment & Plan: As above, I suspect this is the majority of what caused his decompensation. The hospitalist is managing this condition. (5) Obesity Assessment & Plan: He needs to work on weight loss. JUSTIN FOOTE JR, MD Jun 30, 2021 16:17
[2021-07-01 02:23] VITALS: BP 84/53
[2021-07-01 05:51] LABS: BASOPHILS % (AUTO) 0 % (0-10); EOSINOPHILS # (AUTO) 0.1 10^3/uL (0.0-0.3); EOSINOPHILS % (AUTO) 2 % (0-10); HEMATOCRIT 51 % (40-54); HEMOGLOBIN 14.1 g/dL (13.3-17.7); LYMPHOCYTES # (AUTO) 0.9 10^3/uL (1.0-4.0); LYMPHOCYTES % (AUTO) 12 % (12-44); MEAN CORPUSCULAR HEMOGLOBIN 24 pg (25-34); MEAN CORPUSCULAR HGB CONC 28 g/dL (32-36); MEAN CORPUSCULAR VOLUME 85 fL (80-99); MEAN PLATELET VOLUME 10.3 fL (9.0-12.2); MONOCYTES # (AUTO) 0.8 10^3/uL (0.0-1.0); MONOCYTES % (AUTO) 11 % (0-12); NEUTROPHILS # (AUTO) 5.6 10^3/uL (1.8-7.8); NEUTROPHILS % (AUTO) 74 % (42-75); PLATELET COUNT 135 10^3/uL (130-400); WHITE BLOOD COUNT 7.6 10^3/uL (4.3-11.0)
[2021-07-01 06:08] LABS: ALBUMIN 3.2 GM/DL (3.2-4.5)
[2021-07-01 06:09] LABS: CALCIUM 8.5 MG/DL (8.5-10.1)
[2021-07-01 06:10] LABS: TOTAL PROTEIN 6.4 GM/DL (6.4-8.2)
[2021-07-01] MEDS: KCL 20 MEQ TAB (K-DUR) PO SCH (06:11)
[2021-07-01] MEDS: POTASSIUM CL 10MEQ/50ML IVPB 50 ML IV SCH (06:11)
[2021-07-01 06:12] LABS: BILIRUBIN,TOTAL 0.8 MG/DL (0.1-1.0)
[2021-07-01 06:14] LABS: CREATININE SERUM 0.83 MG/DL (0.60-1.30)
[2021-07-01 06:17] LABS: MAGNESIUM 1.8 MG/DL (1.6-2.4)
[2021-07-01] MEDS: MAGNESIUM 1 GM/100 ML IVPB 100 ML IV SCH (06:19)
[2021-07-01] MEDS: FUROSEMIDE 40 MG/4 ML INJ (LASIX) IVP SCH ×2 (06:23→17:36)
[2021-07-01 06:38] VITALS: BP 98/56
[2021-07-01] MEDS: ENOXAPARIN 40 MG/0.4 ML (LOVENOX) SYR SC SCH (08:02)
[2021-07-01] MEDS ORDERED: CARBAM PEROX/GLYC/PROP 15 ML DROPS (DEBROX) EACH EAR PRN (08:15)
[2021-07-01] MEDS ORDERED: RT-ALBUTEROL/IPRATROPIUM 3 ML (DUONEB) VIAL INH PRN (08:15)
[2021-07-01] MEDS ORDERED: ACETAMINOPHEN 325 MG TABLET PO PRN (08:15)
[2021-07-01] MEDS ORDERED: ONDANSETRON 4 MG (ZOFRAN) ORAL DISSOLVE TAB PO PRN (08:45)
[2021-07-01] MEDS ORDERED: ARTIFICAL TEARS 0.4 ML UNIT DOSE (REFRESH PLUS) OU PRN (08:45)
--- NOTE | 2021-07-01 08:54 | Progress Note - Hospitalist ---
Subjective HPI/CC On Admission Date Seen by Provider: Jul 01, 2021 Time Seen by Provider: 08:52 Pt is a 61yoCM with a PMH of CHF, COPD, HTN, GERD, depression, and bipolar disorder who presented to the ER due to hypoxia. He is unable to give me any history secondary to his clinical status and being on BiPAP so all history is obtained from the records. Apparently he was found to have oxygen saturations on his baseline 3 L in the 70s yesterday. EMS was summoned and they found him to be hypoxic to the 60s. He was given a DuoNeb and brought to the emergency room where he was placed on 6 L. ABG revealed marked hypercapnia and he was placed on BiPAP and admitted to the ICU. Imaging revealed prominent pulmonary vascularity and he was given 40 of Lasix. He remains on BiPAP though hypoxia is improved and he has been weaned down to 45% FiO2. Subjective/Events-last exam Pt reports doing well. Somewhat repetitive in his responses but no complaints. On Vapotherm currently and much more alert than yesterday. RN expresses no concerns either. Objective Exam Vital Signs Vital Signs Date Time Temp Pulse Resp B/P (MAP) Pulse Ox O2 Delivery O2 Flow Rate FiO2 07/01/21 08:46 96 Vapotherm 20.00 60.00 07/01/21 08:00 90 07/01/21 07:00 73 07/01/21 06:38 19 07/01/21 03:37 36.2 119/70 Capillary Refill : Less Than 3 Seconds General Appearance: No Apparent Distress, Chronically ill, Obese Respiratory: No Accessory Muscle Use, Decreased Breath Sounds, Wheezing Cardiovascular: Regular Rate, Rhythm, No Murmur Gastrointestinal: Normal Bowel Sounds, Soft Neurologic/Psychiatric: Alert, Other (oriented to person and place) Results/Procedures Lab Laboratory Tests 07/01/21 05:38 Patient resulted labs reviewed. Imaging: Reviewed Imaging Report Assessment/Plan Assessment and Plan Assess & Plan/Chief Complaint Acute on Chronic hypoxic respiratory failure due to dCHF exacerbation HTN HLD CAD Doing well on Vapotherm, wean oxygen as able Continue Lasix Cardiology consult, appreciate recs Monitor UOP Repeat echo shows persistent diastolic dysfunction and preserved EF Continue home meds as able Will transfer to 4th floor COPD without acute exacerbation No wheezing or cough 3lpm baseline MAT protocol Bipolar disorder Continue home meds, no acute needs DVT ppx: Lovenox Critical Care Critically Ill Patient Diagnosis/Problems Diagnosis/Problems (1) CAD (coronary artery disease) (2) HLD (hyperlipidemia) (3) COPD (chronic obstructive pulmonary disease) (4) Hypertension (5) Obesity (6) Prophylactic measure (7) Bipolar disorder (8) Acute on chronic heart failure Status: Acute Qualifiers: Heart failure type: unspecified Qualified Codes: I50.9 - Heart failure, unspecified (9) Acute and chronic respiratory failure Status: Acute ANA LAURA STUBBS MD Jul 01, 2021 08:54
[2021-07-01] MEDS ORDERED: DEXTROMETHORPHAN SUSP 30 MG/5 ML 30 ML (DELSYM) PO PRN (09:00)
[2021-07-01] MEDS ORDERED: FUROSEMIDE 20 MG (LASIX) TAB PO SCH (09:00)
[2021-07-01] MEDS: BENZONATATE 100 MG (TESSALON) CAPSULE PO SCH ×3 (09:18→21:38)
[2021-07-01] MEDS: MULTIVIT W/MINERALS TAB (THERAGRAN M) PO SCH (09:19)
[2021-07-01] MEDS: PANTOPRAZOLE 40 MG (PROTONIX) TAB PO SCH (09:19)
[2021-07-01] MEDS: ASPIRIN E.C. 81 MG (ECOTRIN) TAB PO SCH (09:19)
[2021-07-01] MEDS: clonazePAM 0.5 MG (KlonoPIN) TAB PO SCH ×2 (09:19→21:38)
[2021-07-01] MEDS: lisINopril 10 MG (PRINIVIL) TABLET PO SCH (09:19)
[2021-07-01] MEDS: meTOprolol TARTRATE 25 MG (LOPRESSOR) TABLET PO SCH ×2 (09:19→21:38)
[2021-07-01] MEDS: DIVALPROX SPRINKLE 125 MG (DEPAKOTE) CAP PO SCH ×3 (09:22→17:36)
--- NOTE | 2021-07-01 09:56 | Cardiology Progress Note ---
Progress Note-Cardiology Events since last exam Date Seen by Provider: Jul 01, 2021 Time Seen by Provider: 09:51 Events since last exam I am seeing him for heart failure. He is much more alert today. He states his breathing is improved. He denies chest pain, palpitations, syncope, or ankle edema. Certain portions of this document may have been dictated utilizing voice recognition technology. Inherent to this technology, typographical and grammatical errors may exist. As much as I am diligent to identify and correct these mistakes, some errors may remain in the document. Vitals Last set of Vitals Signs Vital Signs 07/01/21 07/01/21 07/01/21 07/01/21 07/01/21 03:37 06:38 07:00 08:00 09:23 Temp 36.2 Pulse 73 Resp 19 B/P (MAP) 119/70 Pulse Ox 93 O2 Delivery Vapotherm O2 Flow Rate 20.00 70.00 FiO2 90 Labs Labs Laboratory Tests 07/01/21 05:38 Exam Vital Signs Vital Signs Date Time Temp Pulse Resp B/P (MAP) Pulse Ox O2 Delivery O2 Flow Rate FiO2 07/01/21 09:23 93 Vapotherm 20.00 70.00 07/01/21 08:00 90 07/01/21 07:00 73 07/01/21 06:38 19 07/01/21 03:37 36.2 119/70 Physical Exam General: Alert. No acute distress. He is obese. He is wearing oxygen by nasal cannula. Eye: No xanthelasma. Sclerae are injected but improved from yesterday. HENT: Normocephalic. Neck: Jugular venous pressure does not appear elevated. Respiratory: Lungs have minimal bilateral scattered wheezes, improved from yesterday. Respirations are non-labored. Breath sounds are equal. Symmetrical chest wall expansion. Cardiovascular: Normal rate. Regular rhythm. No murmur. No gallop. Trace bilateral pretibial edema. Gastrointestinal: Soft. Normal bowel sounds. Skin: Warm. Dry. Neurologic: Alert and oriented to person only. Cranial nerves 3-11 grossly intact. Psychiatric: Cooperative. Appropriate mood & affect but with some confusion. Labs Laboratory Tests Test 07/01/21 05:38 Range/Units White Blood Count 7.6 4.3-11.0 10^3/uL Red Blood Count 5.98 H 4.30-5.52 10^6/uL Hemoglobin 14.1 13.3-17.7 g/dL Hematocrit 51 40-54 % Mean Corpuscular Volume 85 80-99 fL Mean Corpuscular Hemoglobin 24 L 25-34 pg Mean Corpuscular Hemoglobin Concent 28 L 32-36 g/dL Red Cell Distribution Width 19.9 H 10.0-14.5 % Platelet Count 135 130-400 10^3/uL Mean Platelet Volume 10.3 9.0-12.2 fL Immature Granulocyte % (Auto) 1 % Neutrophils (%) (Auto) 74 42-75 % Lymphocytes (%) (Auto) 12 12-44 % Monocytes (%) (Auto) 11 0-12 % Eosinophils (%) (Auto) 2 0-10 % Basophils (%) (Auto) 0 0-10 % Neutrophils # (Auto) 5.6 1.8-7.8 10^3/uL Lymphocytes # (Auto) 0.9 L 1.0-4.0 10^3/uL Monocytes # (Auto) 0.8 0.0-1.0 10^3/uL Eosinophils # (Auto) 0.1 0.0-0.3 10^3/uL Basophils # (Auto) 0.0 0.0-0.1 10^3/uL Immature Granulocyte # (Auto) 0.0 0.0-0.1 10^3/uL Sodium Level 140 135-145 MMOL/L Potassium Level 5.0 3.6-5.0 MMOL/L Chloride Level 93 L 98-107 MMOL/L Carbon Dioxide Level 36 H 21-32 MMOL/L Anion Gap 11 5-14 MMOL/L Blood Urea Nitrogen 18 7-18 MG/DL Creatinine 0.83 0.60-1.30 MG/DL Estimat Glomerular Filtration Rate 94 BUN/Creatinine Ratio 22 Glucose Level 89 70-105 MG/DL Calcium Level 8.5 8.5-10.1 MG/DL Corrected Calcium 9.1 8.5-10.1 MG/DL Phosphorus Level 3.0 2.3-4.7 MG/DL Magnesium Level 1.8 1.6-2.4 MG/DL Total Bilirubin 0.8 0.1-1.0 MG/DL Aspartate Amino Transf (AST/SGOT) 19 5-34 U/L Alanine Aminotransferase (ALT/SGPT) 15 0-55 U/L Alkaline Phosphatase 54 40-136 U/L Total Protein 6.4 6.4-8.2 GM/DL Albumin 3.2 3.2-4.5 GM/DL Diagnosis/Problems Diagnosis/Problems (1) Acute on chronic diastolic heart failure Assessment & Plan: His BNP level is mildly elevated although he does not have overt pulmonary edema on his chest x-ray. He may have some mild decompensation of his chronic heart failure with preserved ejection fraction. He is on IV furosemide. I will obtain a follow-up 2 view chest x-ray. I suspect we can change the furosemide over to oral by tomorrow. He has orders to transfer to the general medical floor. (2) Acute on chronic respiratory failure with hypoxemia Assessment & Plan: I suspect the majority of his decompensation was related to an exacerbation of his chronic obstructive pulmonary disease. He is on continuous oxygen at home. He remains on Vapotherm here in the hospital. The hospitalist is managing his pulmonary disease. (3) Primary hypertension Assessment & Plan: He remains normotensive on no medication. We will watch his blood pressures closely. If his blood pressures become elevated, resume HEIDI inhibitor. I would suggest we discontinue the beta-agatha he was taking at home as this could cause worsening bronchospasm given his chronic underlying pulmonary disease. (4) COPD (chronic obstructive pulmonary disease) Assessment & Plan: As above, I suspect this is the majority of what caused his decompensation. The hospitalist is managing this condition. (5) Obesity Assessment & Plan: He needs to work on weight loss. JUSTIN FOOTE JR, MD Jul 01, 2021 09:56
[2021-07-01] MEDS: RT--FLUTICASONE/SALMETEROL 232-14 (AIRDUO RespiCLICK) IH SCH ×2 (10:10→18:36)
--- NOTE | 2021-07-01 10:44 | Diagnostic Imaging Report ---
INDICATION: Congestive heart failure. Comparison made with prior examination of 06/30/2021. FINDINGS: There is cardiomegaly. There is some minimal patchy infiltrate in the right lung base. No pleural effusion or pneumothorax. Mediastinum is unremarkable. IMPRESSION: Cardiomegaly and minimal patchy right base infiltrate. Dictated by: Dictated on workstation # [id number]
--- NOTE | 2021-07-01 11:49 | Physical Therapy Daily Note ---
PT Daily Note-Current Subjective Pt. in bed, agrees to sit up in chair. No c/o pain. Transfers SCALE: Activities may be completed with or without assistive devices. 2-Dzadaaihfi-ajbroaw completes the activity by him/herself with no assistance from a helper. 5-Set-up or Clean-up Assistance-helper sets up or cleans up; patient completes activity. [place] assists only prior to or following the activity. 4-Supervision or Touching Assistance-helper provides verbal cues and/or touching/steadying and/or contact guard assistance as patient completes activity. Assistance may be provided throughout the activity or intermittently. 3-Partial/Moderate Assistance-helper does LESS THAN HALF the effort. [place] lifts, holds or supports trunk or limbs, but provides less than half the effort. 2-Substantial/Maximal Assistance-helper does MORE THAN HALF the effort. [place] lifts or holds trunk or limbs and provides more than half the effort. 3-Qtziomjaa-bkkwzi does ALL the effort. Patient does none of the effort to complete the activity. Or, the assistance of 2 or more helpers is required for the patient to complete the activity. If activity was not attempted, code reason: 7-Patient Refused. 9-Not Applicable-not attempted and the patient did not perform the activity before the current illness, exacerbation or injury. 10-Not Attempted due to Environmental Limitations-(lack of equipment, weather restraints, etc.). 88-Not Attempted due to Medical Conditions or Safety Concerns. Lying to Sitting/Side of Bed(Q: 6 Sit to Stand (QC): 4 Chair/Mdn-jf-Jhhpm Xfer(QC): 4 Treatments transfers bed to chair Assessment Current Status: Good Progress Pt. on vapotherm during session. 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 Pt. in bedside chair post session with O2 in situ, call light in reach and all needs met. PT Short Term Goals Short Term Goals Time Frame: Jul 14, 2021 Roll Left & Right: 4 Sit to lyin Lying to sitting on side of be: 4 Sit to stand: 4 Chair/iwm-pt-tiixt transfer: 4 Toilet transfer: 4 Walk 10 feet: 4 Walk 50 feet with two turns: 3 PT Ecmo Specialist Goals Ecmo Specialist Goals PT Fdc Goals Time Frame: Aug 18, 2021 Roll Left & Right (QC): 5 Sit to Lying (QC): 5 Lying-Sitting on Side/Bed(QC): 5 Sit to Stand (QC): 5 Chair/Lsg-ug-Rovsv Xfer(QC): 5 Toilet Transfer (QC): 5 Does the Patient Walk: Yes Walk 10 feet (QC): 5 Walk 50ft with 2 Turns (QC): 5 Walk 150 ft (QC): 5 1 Step (curb) (QC): 5 4 Steps (QC): 5 PT Plan Treatment/Plan Treatment Plan: Continue Plan of Care Treatment Plan: Bed Mobility, Concurrent Therapy, Education, Functional Activity Gracy, Functional Strength, Group Therapy, Gait, Safety, Therapeutic Exercise, Transfers Treatment Duration: Sep 15, 2021 Frequency: 6 times per week Estimated Hrs Per Day: .25 hour per day Time/GCodes Time In: 1045 Time Out: 1053 Total Billed Treatment Time: 8 Total Billed Treatment 1, FA 8' LANIE TADEO PT Jul 01, 2021 11:49
[2021-07-01 22:02] VITALS: BP 98/56
[2021-07-02] MEDS: FUROSEMIDE 40 MG/4 ML INJ (LASIX) IVP SCH (06:10)
[2021-07-02 07:08] LABS: BASOPHILS % (AUTO) 0 % (0-10); EOSINOPHILS % (AUTO) 0 % (0-10); HEMATOCRIT 50 % (40-54); HEMOGLOBIN 14.5 g/dL (13.3-17.7); LYMPHOCYTES # (AUTO) 1.4 10^3/uL (1.0-4.0); LYMPHOCYTES % (AUTO) 13 % (12-44); MEAN CORPUSCULAR HEMOGLOBIN 24 pg (25-34); MEAN CORPUSCULAR HGB CONC 29 g/dL (32-36); MEAN CORPUSCULAR VOLUME 82 fL (80-99); MEAN PLATELET VOLUME 9.7 fL (9.0-12.2); MONOCYTES # (AUTO) 1.2 10^3/uL (0.0-1.0); MONOCYTES % (AUTO) 11 % (0-12); NEUTROPHILS % (AUTO) 75 % (42-75); PLATELET COUNT 155 10^3/uL (130-400); WHITE BLOOD COUNT 10.7 10^3/uL (4.3-11.0)
[2021-07-02 07:35] LABS: ALBUMIN 3.7 GM/DL (3.2-4.5); BILIRUBIN,TOTAL 0.9 MG/DL (0.1-1.0); CALCIUM 8.6 MG/DL (8.5-10.1); CREATININE SERUM 1.11 MG/DL (0.60-1.30); MAGNESIUM 1.7 MG/DL (1.6-2.4); PHOSPHORUS 2.8 MG/DL (2.3-4.7); POTASSIUM 4.8 MMOL/L (3.6-5.0); TOTAL PROTEIN 6.9 GM/DL (6.4-8.2)
[2021-07-02] MEDS: POTASSIUM CL 10MEQ/50ML IVPB 50 ML IV SCH (08:28)
[2021-07-02] MEDS: MAGNESIUM 1 GM/100 ML IVPB 100 ML IV SCH (08:29)
--- NOTE | 2021-07-02 10:09 | Progress Note - Hospitalist ---
Subjective HPI/CC On Admission Date Seen by Provider: Jul 02, 2021 Time Seen by Provider: 10:04 Pt is a 61yoCM with a PMH of CHF, COPD, HTN, GERD, depression, and bipolar disorder who presented to the ER due to hypoxia. He is unable to give me any history secondary to his clinical status and being on BiPAP so all history is obtained from the records. Apparently he was found to have oxygen saturations on his baseline 3 L in the 70s yesterday. EMS was summoned and they found him to be hypoxic to the 60s. He was given a DuoNeb and brought to the emergency room where he was placed on 6 L. ABG revealed marked hypercapnia and he was placed on BiPAP and admitted to the ICU. Imaging revealed prominent pulmonary vascularity and he was given 40 of Lasix. He remains on BiPAP though hypoxia is improved and he has been weaned down to 45% FiO2. Subjective/Events-last exam Pt reports feeling well. Oxygen weaning down. Was very agitated with his catheter yesterday and was pulling on it. Now has some hematuria. Urinating easily though now that catheter out. Objective Exam Vital Signs Vital Signs Date Time Temp Pulse Resp B/P (MAP) Pulse Ox O2 Delivery O2 Flow Rate FiO2 07/02/21 08:00 37.2 69 18 116/64 93 Vapotherm 25.00 60.00 07/02/21 07:09 60 Capillary Refill : Less Than 3 Seconds General Appearance: No Apparent Distress, Chronically ill, Obese Respiratory: Lungs Clear, No Respiratory Distress Cardiovascular: Regular Rate, Rhythm, No Murmur Neurologic/Psychiatric: Alert, Other (oriented to person and place) Results/Procedures Lab Laboratory Tests 07/02/21 06:52 Patient resulted labs reviewed. Imaging: Reviewed Imaging Report Assessment/Plan Assessment and Plan Assess & Plan/Chief Complaint Acute on Chronic hypoxic respiratory failure due to dCHF exacerbation HTN HLD CAD Doing well on Vapotherm, wean oxygen as able Continue Lasix, switch to oral Cardiology consult, appreciate recs Repeat echo shows persistent diastolic dysfunction and preserved EF Continue home meds as able COPD without acute exacerbation No wheezing or cough 3lpm baseline MAT protocol Bipolar disorder Continue home meds, no acute needs DVT ppx: Lovenox Critical Care Critically Ill Patient Diagnosis/Problems Diagnosis/Problems (1) CAD (coronary artery disease) (2) HLD (hyperlipidemia) (3) COPD (chronic obstructive pulmonary disease) (4) Hypertension (5) Obesity (6) Prophylactic measure (7) Bipolar disorder (8) Acute on chronic heart failure Status: Acute Qualifiers: Heart failure type: unspecified Qualified Codes: I50.9 - Heart failure, unspecified (9) Acute and chronic respiratory failure Status: Acute ANA LAURA STUBBS MD Jul 02, 2021 10:08
[2021-07-02] MEDS: MULTIVIT W/MINERALS TAB (THERAGRAN M) PO SCH (10:14)
[2021-07-02] MEDS: meTOprolol TARTRATE 25 MG (LOPRESSOR) TABLET PO SCH ×2 (10:14→20:53)
[2021-07-02] MEDS: ASPIRIN E.C. 81 MG (ECOTRIN) TAB PO SCH (10:14)
[2021-07-02] MEDS: BENZONATATE 100 MG (TESSALON) CAPSULE PO SCH ×3 (10:14→20:53)
[2021-07-02] MEDS: lisINopril 10 MG (PRINIVIL) TABLET PO SCH (10:14)
[2021-07-02] MEDS: PANTOPRAZOLE 40 MG (PROTONIX) TAB PO SCH (10:14)
[2021-07-02] MEDS: clonazePAM 0.5 MG (KlonoPIN) TAB PO SCH ×2 (10:14→20:53)
[2021-07-02] MEDS: DIVALPROX SPRINKLE 125 MG (DEPAKOTE) CAP PO SCH ×3 (10:22→17:09)
[2021-07-02] MEDS: KCL 20 MEQ TAB (K-DUR) PO SCH (10:23)
[2021-07-02] MEDS: RT--FLUTICASONE/SALMETEROL 232-14 (AIRDUO RespiCLICK) IH SCH ×2 (10:30→21:00)
--- NOTE | 2021-07-02 10:55 | Cardiology Progress Note ---
Progress Note-Cardiology Events since last exam Date Seen by Provider: Jul 02, 2021 Time Seen by Provider: 10:50 Events since last exam I am following him for heart failure. He denies shortness of breath today. He denies chest pain, palpitations, syncope, or lower extremity edema. However, due to some baseline confusion, his answers may not be entirely reliable. 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 Last night he was pulling on his Aguilar catheter which was later removed. Now he has hematuria. Urology consultation is pending. Certain portions of this document may have been dictated utilizing voice recognition technology. Inherent to this technology, typographical and grammatical errors may exist. As much as I am diligent to identify and correct these mistakes, some errors may remain in the document. Vitals Last set of Vitals Signs Vital Signs 07/02/21 07/02/21 08:00 10:31 Temp 37.2 Pulse 69 Resp 18 B/P (MAP) 116/64 Pulse Ox 95 O2 Delivery Vapotherm O2 Flow Rate 25.00 FiO2 60 Labs Labs Laboratory Tests 07/02/21 06:52 Exam Vital Signs Vital Signs Date Time Temp Pulse Resp B/P (MAP) Pulse Ox O2 Delivery O2 Flow Rate FiO2 07/02/21 10:31 95 Vapotherm 25.00 60 07/02/21 08:00 37.2 69 18 116/64 Physical Exam General: Alert. No acute distress. He is obese. Eye: No xanthelasma. HENT: Normocephalic. Neck: Jugular venous pressure does not appear elevated. Respiratory: Lungs are clear to auscultation. Respirations are non-labored. Breath sounds are equal. Symmetrical chest wall expansion. Cardiovascular: Normal rate. Regular rhythm. No murmur. No gallop. No edema. Gastrointestinal: Soft. Normal bowel sounds. Skin: Warm. Dry. Neurologic: Alert and oriented to person and place but not time. Cranial nerves 3-11 grossly intact. Psychiatric: Cooperative. He appears to have some baseline chronic confusion. Labs Laboratory Tests Test 07/02/21 06:52 Range/Units White Blood Count 10.7 4.3-11.0 10^3/uL Red Blood Count 6.10 H 4.30-5.52 10^6/uL Hemoglobin 14.5 13.3-17.7 g/dL Hematocrit 50 40-54 % Mean Corpuscular Volume 82 80-99 fL Mean Corpuscular Hemoglobin 24 L 25-34 pg Mean Corpuscular Hemoglobin Concent 29 L 32-36 g/dL Red Cell Distribution Width 19.6 H 10.0-14.5 % Platelet Count 155 130-400 10^3/uL Mean Platelet Volume 9.7 9.0-12.2 fL Immature Granulocyte % (Auto) 1 % Neutrophils (%) (Auto) 75 42-75 % Lymphocytes (%) (Auto) 13 12-44 % Monocytes (%) (Auto) 11 0-12 % Eosinophils (%) (Auto) 0 0-10 % Basophils (%) (Auto) 0 0-10 % Neutrophils # (Auto) 8.0 H 1.8-7.8 10^3/uL Lymphocytes # (Auto) 1.4 1.0-4.0 10^3/uL Monocytes # (Auto) 1.2 H 0.0-1.0 10^3/uL Eosinophils # (Auto) 0.0 0.0-0.3 10^3/uL Basophils # (Auto) 0.0 0.0-0.1 10^3/uL Immature Granulocyte # (Auto) 0.1 0.0-0.1 10^3/uL Sodium Level 137 135-145 MMOL/L Potassium Level 4.8 3.6-5.0 MMOL/L Chloride Level 87 L 98-107 MMOL/L Carbon Dioxide Level 40 H 21-32 MMOL/L Anion Gap 10 5-14 MMOL/L Blood Urea Nitrogen 19 H 7-18 MG/DL Creatinine 1.11 0.60-1.30 MG/DL Estimat Glomerular Filtration Rate 67 BUN/Creatinine Ratio 17 Glucose Level 106 H 70-105 MG/DL Calcium Level 8.6 8.5-10.1 MG/DL Corrected Calcium 8.8 8.5-10.1 MG/DL Phosphorus Level 2.8 2.3-4.7 MG/DL Magnesium Level 1.7 1.6-2.4 MG/DL Total Bilirubin 0.9 0.1-1.0 MG/DL Aspartate Amino Transf (AST/SGOT) 21 5-34 U/L Alanine Aminotransferase (ALT/SGPT) 15 0-55 U/L Alkaline Phosphatase 61 40-136 U/L Total Protein 6.9 6.4-8.2 GM/DL Albumin 3.7 3.2-4.5 GM/DL Diagnosis/Problems Diagnosis/Problems (1) Acute on chronic diastolic heart failure Assessment & Plan: His BNP level was mildly elevated on admission although he does not have overt pulmonary edema on his chest x-ray. His follow-up chest x- ray from 07/01 did not show pulmonary edema. He seems to have improved with a short course of intravenous furosemide. It would not be unreasonable to resume his home dose of oral furosemide. We can discontinue the customer service agent. From a cardiac standpoint, he may be ready for discharge. However, he has a urology consultation pending due to the hematuria. I will have my office arrange to follow-up with me within 1 week after discharge. (2) Acute on chronic respiratory failure with hypoxemia Assessment & Plan: I suspect the majority of his decompensation was related to an exacerbation of his chronic obstructive pulmonary disease. He is on continuous oxygen at home. He remains on Vapotherm here in the hospital. The hospitalist is managing his pulmonary disease. (3) Primary hypertension Assessment & Plan: He remains normotensive on no medication. We will watch his blood pressures closely. If his blood pressures become elevated, resume HEIDI inhibitor. I would suggest we discontinue the beta-agatha he was taking at home indefinitely as this could cause worsening bronchospasm given his chronic underlying pulmonary disease. (4) Mixed hyperlipidemia Assessment & Plan: By report, he has hyperlipidemia but was not taking any medication for this at home. I will add a fasting lipid profile to his previous blood work. (5) COPD (chronic obstructive pulmonary disease) Assessment & Plan: As above, I suspect this is the majority of what caused his decompensation. The hospitalist is managing this condition. (6) Obesity Assessment & Plan: He needs to work on weight loss. JUSTIN FOOTE JR, MD Jul 02, 2021 10:55
[2021-07-02 11:19] LABS: CHOLESTEROL 138 MG/DL (< 200); HDL CHOLESTEROL 32 MG/DL (40-60); TRIGLYCERIDES 104 MG/DL (<150); VLDL CHOLESTEROL 21 MG/DL (5-40)
[2021-07-03 06:04] LABS: BASOPHILS % (AUTO) 0 % (0-10); EOSINOPHILS # (AUTO) 0.2 10^3/uL (0.0-0.3); EOSINOPHILS % (AUTO) 3 % (0-10); HEMATOCRIT 46 % (40-54); HEMOGLOBIN 13.5 g/dL (13.3-17.7); LYMPHOCYTES # (AUTO) 1.6 10^3/uL (1.0-4.0); LYMPHOCYTES % (AUTO) 21 % (12-44); MEAN CORPUSCULAR HEMOGLOBIN 24 pg (25-34); MEAN CORPUSCULAR HGB CONC 29 g/dL (32-36); MEAN CORPUSCULAR VOLUME 82 fL (80-99); MEAN PLATELET VOLUME 10.8 fL (9.0-12.2); MONOCYTES # (AUTO) 0.9 10^3/uL (0.0-1.0); MONOCYTES % (AUTO) 12 % (0-12); NEUTROPHILS # (AUTO) 4.8 10^3/uL (1.8-7.8); NEUTROPHILS % (AUTO) 64 % (42-75); PLATELET COUNT 191 10^3/uL (130-400); WHITE BLOOD COUNT 7.5 10^3/uL (4.3-11.0)
[2021-07-03 06:16] LABS: ALBUMIN 3.3 GM/DL (3.2-4.5)
[2021-07-03 06:17] LABS: POTASSIUM 4.8 MMOL/L (3.6-5.0)
[2021-07-03 06:18] LABS: CALCIUM 8.5 MG/DL (8.5-10.1)
[2021-07-03 06:19] LABS: TOTAL PROTEIN 6.4 GM/DL (6.4-8.2)
[2021-07-03 06:21] LABS: BILIRUBIN,TOTAL 0.6 MG/DL (0.1-1.0)
[2021-07-03 06:22] LABS: PHOSPHORUS 1.9 MG/DL (2.3-4.7)
[2021-07-03 06:23] LABS: CREATININE SERUM 0.83 MG/DL (0.60-1.30)
[2021-07-03 06:25] LABS: MAGNESIUM 1.9 MG/DL (1.6-2.4)
[2021-07-03] MEDS: KCL 20 MEQ TAB (K-DUR) PO SCH (06:27)
[2021-07-03] MEDS: POTASSIUM CL 10MEQ/50ML IVPB 50 ML IV SCH (06:27)
[2021-07-03] MEDS: MAGNESIUM 1 GM/100 ML IVPB 100 ML IV SCH (06:27)
[2021-07-03] MEDS: MULTIVIT W/MINERALS TAB (THERAGRAN M) PO SCH (08:06)
[2021-07-03] MEDS: clonazePAM 0.5 MG (KlonoPIN) TAB PO SCH ×2 (08:06→21:37)
[2021-07-03] MEDS: lisINopril 10 MG (PRINIVIL) TABLET PO SCH (08:06)
[2021-07-03] MEDS: ASPIRIN E.C. 81 MG (ECOTRIN) TAB PO SCH (08:06)
[2021-07-03] MEDS: PANTOPRAZOLE 40 MG (PROTONIX) TAB PO SCH (08:06)
[2021-07-03] MEDS: BENZONATATE 100 MG (TESSALON) CAPSULE PO SCH ×3 (08:06→21:37)
[2021-07-03] MEDS: meTOprolol TARTRATE 25 MG (LOPRESSOR) TABLET PO SCH ×2 (08:06→21:37)
[2021-07-03] MEDS: DIVALPROX SPRINKLE 125 MG (DEPAKOTE) CAP PO SCH ×3 (08:13→18:01)
[2021-07-03] MEDS ORDERED: predniSONE 20 MG TAB PO ONE (09:30)
[2021-07-03] MEDS ORDERED: FUROSEMIDE 40 MG/4 ML INJ (LASIX) IVP ONE (09:30)
--- NOTE | 2021-07-03 12:08 | Progress Note - Hospitalist ---
Subjective HPI/CC On Admission Date Seen by Provider: Jul 03, 2021 Time Seen by Provider: 09:10 Pt is a 61yoCM with a PMH of CHF, COPD, HTN, GERD, depression, and bipolar disorder who presented to the ER due to hypoxia. He is unable to give me any history secondary to his clinical status and being on BiPAP so all history is obtained from the records. Apparently he was found to have oxygen saturations on his baseline 3 L in the 70s yesterday. EMS was summoned and they found him to be hypoxic to the 60s. He was given a DuoNeb and brought to the emergency room where he was placed on 6 L. ABG revealed marked hypercapnia and he was placed on BiPAP and admitted to the ICU. Imaging revealed prominent pulmonary vascularity and he was given 40 of Lasix. He remains on BiPAP though hypoxia is improved and he has been weaned down to 45% FiO2. Subjective/Events-last exam He is eating breakfast. He is coughing with every bite. He denies shortness of breath. He denies pain. Objective Exam Vital Signs Vital Signs Date Time Temp Pulse Resp B/P (MAP) Pulse Ox O2 Delivery O2 Flow Rate FiO2 07/03/21 10:28 96 Vapotherm 20.00 55 07/03/21 08:00 36.8 64 18 122/66 Capillary Refill : Less Than 3 Seconds General Appearance: No Apparent Distress, Obese Respiratory: No Respiratory Distress, Wheezing Cardiovascular: Regular Rate, Rhythm, No Edema, No Murmur Gastrointestinal: Normal Bowel Sounds, Non Tender, Soft, Distended Extremity: Normal Inspection, Non Tender, No Pedal Edema Neurologic/Psychiatric: Alert, Depressed Affect Skin: Normal Color, Warm/Dry Results/Procedures Lab Laboratory Tests 07/03/21 05:34 Patient resulted labs reviewed. Imaging: Reviewed Imaging Report Assessment/Plan Assessment and Plan Assess & Plan/Chief Complaint Acute on chronic hypoxic respiratory failure Acute on chronic HFpEF HTN HLD CAD Continue Vapotherm, weaning as able, improving IV Lasix Cardiology consult, appreciate recs Repeat echo shows persistent diastolic dysfunction and preserved EF, reduced IVC variation Continue home meds as able COPD with acute exacerbation Continue Vapotherm Add steroids MAT protocol Dysphagia Swallow evaluation Concern for chronic aspiration Bipolar disorder Continue home meds, no acute needs DVT ppx: Lovenox Diagnosis/Problems Diagnosis/Problems (1) Acute on chronic respiratory failure with hypoxemia Status: Acute (2) Acute on chronic diastolic heart failure Status: Acute (3) COPD (chronic obstructive pulmonary disease) Status: Acute Qualifiers: COPD type: COPD with acute exacerbation Qualified Codes: J44.1 - Chronic obstructive pulmonary disease with (acute) exacerbation (4) Obesity Status: Chronic (5) Bipolar disorder Status: Chronic AMANDA FIERRO MD Jul 03, 2021 12:08
--- NOTE | 2021-07-03 14:47 | Physical Therapy Daily Note ---
PT Daily Note-Current Subjective Pt in bed upon arrival and agrees to tx. Pt has no c/o pain Mental Status Patient Orientation: Person, Place Attachments: Oxygen Transfers SCALE: Activities may be completed with or without assistive devices. 1-Wsiqrmurga-vkqoghy completes the activity by him/herself with no assistance from a helper. 5-Set-up or Clean-up Assistance-helper sets up or cleans up; patient completes activity. [place] assists only prior to or following the activity. 4-Supervision or Touching Assistance-helper provides verbal cues and/or touching/steadying and/or contact guard assistance as patient completes activity. Assistance may be provided throughout the activity or intermittently. 3-Partial/Moderate Assistance-helper does LESS THAN HALF the effort. [place] lifts, holds or supports trunk or limbs, but provides less than half the effort. 2-Substantial/Maximal Assistance-helper does MORE THAN HALF the effort. [place] lifts or holds trunk or limbs and provides more than half the effort. 9-Krawcjccg-mesthw does ALL the effort. Patient does none of the effort to complete the activity. Or, the assistance of 2 or more helpers is required for the patient to complete the activity. If activity was not attempted, code reason: 7-Patient Refused. 9-Not Applicable-not attempted and the patient did not perform the activity before the current illness, exacerbation or injury. 10-Not Attempted due to Environmental Limitations-(lack of equipment, weather restraints, etc.). 88-Not Attempted due to Medical Conditions or Safety Concerns. Roll Left & Right (QC): 6 Sit to Lying (QC): 5 Lying to Sitting/Side of Bed(Q: 5 Sit to Stand (QC): 4 Chair/Nxh-wz-Rlazr Xfer(QC): 4 Toilet Transfer (QC): 4 Treatments Pt in bed and performs supine to sit SBA and changes gown. Pt able to doff dirty gown and don clean gown SBA. While sitting EOB, pt had no LOB during dressing. Pt sit to stand CGA and transfers to BSC. Pt requires ModA doffing brief and donning new one, as well as cleaning. Pt sit to stand w/ CGA and transfers back to bed. Pt sit to supine, requiring VC to scoot and get centered in bed. Pt rolls to the R side while TERRAZZO WORKER APPRENTICE places paper miki under pt, pt rolls to L side so TERRAZZO WORKER APPRENTICE can place miki entirely under pt. Pt left in bed with all needs met, call light in hand. Assessment Current Status: Good Progress Pt CGA for transfers and SBA for bed mobility. PT Short Term Goals Short Term Goals Time Frame: Jul 14, 2021 Roll Left & Right: 4 Sit to lyin Lying to sitting on side of be: 4 Sit to stand: 4 Chair/axd-ie-xwhsn transfer: 4 Toilet transfer: 4 Walk 10 feet: 4 Walk 50 feet with two turns: 3 PT Long-Term Goals Long-Term Goals PT Long-Term Goals Time Frame: Aug 18, 2021 Roll Left & Right (QC): 5 Sit to Lying (QC): 5 Lying-Sitting on Side/Bed(QC): 5 Sit to Stand (QC): 5 Chair/Spu-xv-Bobef Xfer(QC): 5 Toilet Transfer (QC): 5 Does the Patient Walk: Yes Walk 10 feet (QC): 5 Walk 50ft with 2 Turns (QC): 5 Walk 150 ft (QC): 5 1 Step (curb) (QC): 5 4 Steps (QC): 5 PT Plan Treatment/Plan Treatment Plan: Continue Plan of Care Treatment Plan: Bed Mobility, Concurrent Therapy, Education, Functional Activity Gracy, Functional Strength, Group Therapy, Gait, Safety, Therapeutic Exercise, Transfers Treatment Duration: Sep 15, 2021 Frequency: 6 times per week Estimated Hrs Per Day: .25 hour per day Time/GCodes Time In: 1422 Time Out: 1433 Total Billed Treatment Time: 11 Total Billed Treatment 1VANDANA SYDNEY TERRAZZO WORKER APPRENTICE Jul 03, 2021 14:47
--- NOTE | 2021-07-03 17:39 | Cardiology Progress Note ---
Progress Note-Cardiology Events since last exam Date Seen by Provider: Jul 03, 2021 Time Seen by Provider: 17:34 Events since last exam I am following him for heart failure. When I saw him this evening, he was s itting up in bed eating dinner. He remains somewhat confused at baseline. He denies chest discomfort. He denies dyspnea at rest. He denies palpitations, syncope, or ankle edema. The hospitalist gave him another dose of IV Lasix today. Certain portions of this document may have been dictated utilizing voice recognition technology. Inherent to this technology, typographical and grammatical errors may exist. As much as I am diligent to identify and correct these mistakes, some errors may remain in the document. Vitals Last set of Vitals Signs Vital Signs 07/03/21 07/03/21 10:28 16:00 Temp 36.8 Pulse 62 Resp 20 B/P (MAP) 113/68 Pulse Ox 94 O2 Delivery Nasal Cannula O2 Flow Rate 5.00 FiO2 55 Labs Labs Laboratory Tests 07/03/21 05:34 Exam Vital Signs Vital Signs Date Time Temp Pulse Resp B/P (MAP) Pulse Ox O2 Delivery O2 Flow Rate FiO2 07/03/21 16:00 36.8 62 20 113/68 94 Nasal Cannula 5.00 07/03/21 10:28 55 Physical Exam General: Alert. No acute distress. He is obese. He is disheveled. Eye: No xanthelasma. HENT: Normocephalic. Neck: Jugular venous pressure does not appear elevated. Respiratory: Lungs are clear to auscultation. Respirations are non-labored. Breath sounds are equal. Symmetrical chest wall expansion. Cardiovascular: Normal rate. Regular rhythm. No murmur. No gallop. No edema. Gastrointestinal: Soft. Normal bowel sounds. Skin: Warm. Dry. Neurologic: Alert and oriented to person and place but not time. Cranial nerves 3-11 grossly intact. Psychiatric: Cooperative. Appears to have baseline confusion. Labs Laboratory Tests Test 07/03/21 05:34 Range/Units White Blood Count 7.5 4.3-11.0 10^3/uL Red Blood Count 5.66 H 4.30-5.52 10^6/uL Hemoglobin 13.5 13.3-17.7 g/dL Hematocrit 46 40-54 % Mean Corpuscular Volume 82 80-99 fL Mean Corpuscular Hemoglobin 24 L 25-34 pg Mean Corpuscular Hemoglobin Concent 29 L 32-36 g/dL Red Cell Distribution Width 19.2 H 10.0-14.5 % Platelet Count 191 130-400 10^3/uL Mean Platelet Volume 10.8 9.0-12.2 fL Immature Granulocyte % (Auto) 0 % Neutrophils (%) (Auto) 64 42-75 % Lymphocytes (%) (Auto) 21 12-44 % Monocytes (%) (Auto) 12 0-12 % Eosinophils (%) (Auto) 3 0-10 % Basophils (%) (Auto) 0 0-10 % Neutrophils # (Auto) 4.8 1.8-7.8 10^3/uL Lymphocytes # (Auto) 1.6 1.0-4.0 10^3/uL Monocytes # (Auto) 0.9 0.0-1.0 10^3/uL Eosinophils # (Auto) 0.2 0.0-0.3 10^3/uL Basophils # (Auto) 0.0 0.0-0.1 10^3/uL Immature Granulocyte # (Auto) 0.0 0.0-0.1 10^3/uL Sodium Level 135 135-145 MMOL/L Potassium Level 4.8 3.6-5.0 MMOL/L Chloride Level 88 L 98-107 MMOL/L Carbon Dioxide Level 40 H 21-32 MMOL/L Anion Gap 7 5-14 MMOL/L Blood Urea Nitrogen 16 7-18 MG/DL Creatinine 0.83 0.60-1.30 MG/DL Estimat Glomerular Filtration Rate 94 BUN/Creatinine Ratio 19 Glucose Level 92 70-105 MG/DL Calcium Level 8.5 8.5-10.1 MG/DL Corrected Calcium 9.1 8.5-10.1 MG/DL Phosphorus Level 1.9 L 2.3-4.7 MG/DL Magnesium Level 1.9 1.6-2.4 MG/DL Total Bilirubin 0.6 0.1-1.0 MG/DL Aspartate Amino Transf (AST/SGOT) 22 5-34 U/L Alanine Aminotransferase (ALT/SGPT) 13 0-55 U/L Alkaline Phosphatase 51 40-136 U/L Total Protein 6.4 6.4-8.2 GM/DL Albumin 3.3 3.2-4.5 GM/DL Procalcitonin 0.06 <0.10 NG/ML Diagnosis/Problems Diagnosis/Problems (1) Acute on chronic diastolic heart failure Status: Acute Assessment & Plan: His BNP level was mildly elevated on admission although he did not have overt pulmonary edema on his chest x-ray at the time of admission and his follow-up chest x-ray from 07/01 did not show pulmonary edema. He seems to have improved with a short course of intravenous furosemide. Given that he is not all that active, it is somewhat difficult to gauge his symptoms to see how he is responding to treatment for the heart failure. None the less, from a cardiac standpoint, he may be ready for discharged home once his noncardiac issues have improved/resolved. Since he should be going back to a longterm facility, he does not necessarily need a 7-day office follow-up due to his heart failure admission. He should follow-up with me in the office in approximately 1 month and I have asked the hospital staff to make these arrangements. (2) Acute on chronic respiratory failure with hypoxemia Status: Acute Assessment & Plan: I suspect the majority of his decompensation was related to an exacerbation of his chronic obstructive pulmonary disease. He is on continuous oxygen at home. The hospitalist is managing his pulmonary disease. (3) Primary hypertension Assessment & Plan: He remains normotensive on no medication. We will watch his blood pressures closely. If his blood pressures become elevated, resume HEIDI inhibitor. I would suggest we discontinue the beta-agatha he was taking at home indefinitely as this could cause worsening bronchospasm given his chronic underlying pulmonary disease. (4) Mixed hyperlipidemia Assessment & Plan: By report, he has hyperlipidemia but was not taking any medication for this at home. His lipid panel looks great on no medication. (5) COPD (chronic obstructive pulmonary disease) Status: Acute Assessment & Plan: As above, I suspect this is the majority of what caused his decompensation. The hospitalist is managing this condition. (6) Obesity Status: Chronic Assessment & Plan: He needs to work on weight loss. Problem Qualifiers (1) COPD (chronic obstructive pulmonary disease): COPD type: COPD with acute exacerbation Qualified Codes: J44.1 - Chronic obstructive pulmonary disease with (acute) exacerbation JUSTIN FOOTE JR, MD Jul 03, 2021 17:39
[2021-07-03] MEDS: RT--FLUTICASONE/SALMETEROL 232-14 (AIRDUO RespiCLICK) IH SCH (22:22)
[2021-07-04 04:43] LABS: BASOPHILS % (AUTO) 0 % (0-10); EOSINOPHILS % (AUTO) 0 % (0-10); HEMATOCRIT 46 % (40-54); HEMOGLOBIN 13.2 g/dL (13.3-17.7); LYMPHOCYTES # (AUTO) 1.3 10^3/uL (1.0-4.0); LYMPHOCYTES % (AUTO) 15 % (12-44); MEAN CORPUSCULAR HEMOGLOBIN 23 pg (25-34); MEAN CORPUSCULAR HGB CONC 29 g/dL (32-36); MEAN CORPUSCULAR VOLUME 81 fL (80-99); MEAN PLATELET VOLUME 10.3 fL (9.0-12.2); MONOCYTES # (AUTO) 0.6 10^3/uL (0.0-1.0); MONOCYTES % (AUTO) 8 % (0-12); NEUTROPHILS # (AUTO) 6.6 10^3/uL (1.8-7.8); NEUTROPHILS % (AUTO) 77 % (42-75); PLATELET COUNT 165 10^3/uL (130-400); WHITE BLOOD COUNT 8.6 10^3/uL (4.3-11.0)
[2021-07-04 04:57] LABS: ALBUMIN 3.3 GM/DL (3.2-4.5); POTASSIUM 5.1 MMOL/L (3.6-5.0)
[2021-07-04 04:58] LABS: CALCIUM 8.3 MG/DL (8.5-10.1)
[2021-07-04 05:00] LABS: TOTAL PROTEIN 6.3 GM/DL (6.4-8.2)
[2021-07-04 05:01] LABS: BILIRUBIN,TOTAL 0.5 MG/DL (0.1-1.0)
[2021-07-04 05:03] LABS: CREATININE SERUM 0.85 MG/DL (0.60-1.30); PHOSPHORUS 2.2 MG/DL (2.3-4.7)
[2021-07-04 05:06] LABS: MAGNESIUM 1.9 MG/DL (1.6-2.4)
[2021-07-04] MEDS: POTASSIUM CL 10MEQ/50ML IVPB 50 ML IV SCH (05:14)
[2021-07-04] MEDS: MAGNESIUM 1 GM/100 ML IVPB 100 ML IV SCH (05:15)
[2021-07-04] MEDS: KCL 20 MEQ TAB (K-DUR) PO SCH (05:15)
[2021-07-04] MEDS ORDERED: predniSONE 20 MG TAB PO SCH (07:00)
[2021-07-04] MEDS ORDERED: FUROSEMIDE 40 MG/4 ML INJ (LASIX) IVP ONE (07:15)
[2021-07-04] MEDS: BENZONATATE 100 MG (TESSALON) CAPSULE PO SCH ×2 (08:45→12:54)
[2021-07-04] MEDS: MULTIVIT W/MINERALS TAB (THERAGRAN M) PO SCH (08:45)
[2021-07-04] MEDS: clonazePAM 0.5 MG (KlonoPIN) TAB PO SCH (08:45)
[2021-07-04] MEDS: PANTOPRAZOLE 40 MG (PROTONIX) TAB PO SCH (08:45)
[2021-07-04] MEDS: meTOprolol TARTRATE 25 MG (LOPRESSOR) TABLET PO SCH (08:46)
[2021-07-04] MEDS: ASPIRIN E.C. 81 MG (ECOTRIN) TAB PO SCH (08:46)
[2021-07-04] MEDS: DIVALPROX SPRINKLE 125 MG (DEPAKOTE) CAP PO SCH ×2 (08:49→12:54)
[2021-07-04] MEDS: RT--FLUTICASONE/SALMETEROL 232-14 (AIRDUO RespiCLICK) IH SCH (08:54)
--- NOTE | 2021-07-04 09:41 | Cardiology Progress Note ---
Progress Note-Cardiology Events since last exam Date Seen by Provider: Jul 04, 2021 Time Seen by Provider: 09:38 Events since last exam I am following him for heart failure. He was sitting up in a chair. This is the first time I have seen him in a chair as opposed to bed. He has been weaned from Vapotherm down to nasal cannula oxygen. He feels like his breathing is at baseline and wants to go back to the intermediate. He denies chest pain, palpitations, syncope, or ankle edema. Certain portions of this document may have been dictated utilizing voice recognition technology. Inherent to this technology, typographical and grammatical errors may exist. As much as I am diligent to identify and correct these mistakes, some errors may remain in the document. Vitals Last set of Vitals Signs Vital Signs 07/03/21 07/04/21 07/04/21 10:28 07:33 08:54 Temp 35.2 Pulse 59 Resp 18 B/P (MAP) 97/53 Pulse Ox 90 O2 Delivery Nasal Cannula O2 Flow Rate 3.00 FiO2 55 Labs Labs Laboratory Tests 07/04/21 04:10 Exam Vital Signs Vital Signs Date Time Temp Pulse Resp B/P (MAP) Pulse Ox O2 Delivery O2 Flow Rate FiO2 07/04/21 08:54 90 Nasal Cannula 3.00 07/04/21 07:33 35.2 59 18 97/53 07/03/21 10:28 55 Physical Exam General: Alert. No acute distress. He is obese. He is on nasal cannula oxygen. Eye: No xanthelasma. HENT: Normocephalic. Neck: Jugular venous pressure does not appear elevated. Respiratory: Lungs are clear to auscultation but with somewhat diffusely decreased breath sounds. Respirations are non-labored. Breath sounds are equal. Symmetrical chest wall expansion. Cardiovascular: Normal rate. Regular rhythm. No murmur. No gallop. No edema. Gastrointestinal: Soft. Normal bowel sounds. Skin: Warm. Dry. Neurologic: Alert and oriented to person and place but not time. Cranial nerves 3-11 grossly intact. Psychiatric: Cooperative. He appears to have some baseline confusion which is unchanged. Labs Laboratory Tests Test 07/04/21 04:10 Range/Units White Blood Count 8.6 4.3-11.0 10^3/uL Red Blood Count 5.67 H 4.30-5.52 10^6/uL Hemoglobin 13.2 L 13.3-17.7 g/dL Hematocrit 46 40-54 % Mean Corpuscular Volume 81 80-99 fL Mean Corpuscular Hemoglobin 23 L 25-34 pg Mean Corpuscular Hemoglobin Concent 29 L 32-36 g/dL Red Cell Distribution Width 18.6 H 10.0-14.5 % Platelet Count 165 130-400 10^3/uL Mean Platelet Volume 10.3 9.0-12.2 fL Immature Granulocyte % (Auto) 0 % Neutrophils (%) (Auto) 77 H 42-75 % Lymphocytes (%) (Auto) 15 12-44 % Monocytes (%) (Auto) 8 0-12 % Eosinophils (%) (Auto) 0 0-10 % Basophils (%) (Auto) 0 0-10 % Neutrophils # (Auto) 6.6 1.8-7.8 10^3/uL Lymphocytes # (Auto) 1.3 1.0-4.0 10^3/uL Monocytes # (Auto) 0.6 0.0-1.0 10^3/uL Eosinophils # (Auto) 0.0 0.0-0.3 10^3/uL Basophils # (Auto) 0.0 0.0-0.1 10^3/uL Immature Granulocyte # (Auto) 0.0 0.0-0.1 10^3/uL Sodium Level 133 L 135-145 MMOL/L Potassium Level 5.1 H 3.6-5.0 MMOL/L Chloride Level 87 L 98-107 MMOL/L Carbon Dioxide Level 38 H 21-32 MMOL/L Anion Gap 8 5-14 MMOL/L Blood Urea Nitrogen 17 7-18 MG/DL Creatinine 0.85 0.60-1.30 MG/DL Estimat Glomerular Filtration Rate 91 BUN/Creatinine Ratio 20 Glucose Level 110 H 70-105 MG/DL Calcium Level 8.3 L 8.5-10.1 MG/DL Corrected Calcium 8.9 8.5-10.1 MG/DL Phosphorus Level 2.2 L 2.3-4.7 MG/DL Magnesium Level 1.9 1.6-2.4 MG/DL Total Bilirubin 0.5 0.1-1.0 MG/DL Aspartate Amino Transf (AST/SGOT) 17 5-34 U/L Alanine Aminotransferase (ALT/SGPT) 8 0-55 U/L Alkaline Phosphatase 50 40-136 U/L Total Protein 6.3 L 6.4-8.2 GM/DL Albumin 3.3 3.2-4.5 GM/DL Diagnosis/Problems Diagnosis/Problems (1) Acute on chronic diastolic heart failure Status: Acute Assessment & Plan: His BNP level was mildly elevated on admission although he did not have overt pulmonary edema on his chest x-ray at the time of admission and his follow-up chest x-ray from 07/01 did not show pulmonary edema. He seems to have improved with a short course of intravenous furosemide. Given that he is not all that active, it is somewhat difficult to gauge his symptoms to see how he is responding to treatment for the heart failure. His oxygen requirements have gone down over the past few days. He was ordered for another dose of IV furosemide today. I will attempt to obtain a PA and lateral chest x- ray today. From a cardiac standpoint, he may be ready for discharged home once his noncardiac issues have improved/resolved. Once he is discharged, he should resume his previous outpatient dose of oral furosemide. Since [facility], he does not necessarily need a 7-day office follow-up due to his heart failure admission. He should follow-up with me in the office in approximately 1 month and I have asked the hospital staff to make these arrangements and get this information in the computerized discharge instructions. (2) Acute on chronic respiratory failure with hypoxemia Status: Acute Assessment & Plan: I suspect the majority of his decompensation was related to an exacerbation of his chronic obstructive pulmonary disease. He is on continuous oxygen at home. He is now off Vapotherm and on nasal cannula. The hospitalist is managing his pulmonary disease. (3) Primary hypertension Assessment & Plan: He remains normotensive on no medication. I would not discharge him with any antihypertensive medication or he may develop hypotension. (4) Mixed hyperlipidemia Assessment & Plan: By report, he has hyperlipidemia but was not taking any medication for this at home. His lipid panel looks great on no medication. At this time, I do not see any indication for statin therapy. (5) COPD (chronic obstructive pulmonary disease) Status: Acute Assessment & Plan: As above, I suspect this is the majority of what caused his decompensation. The hospitalist is managing this condition. (6) Obesity Status: Chronic Assessment & Plan: He needs to work on weight loss. Problem Qualifiers (1) COPD (chronic obstructive pulmonary disease): COPD type: COPD with acute exacerbation Qualified Codes: J44.1 - Chronic obstructive pulmonary disease with (acute) exacerbation JUSTIN FOOTE JR, MD Jul 04, 2021 09:40
--- NOTE | 2021-07-04 10:27 | Physical Therapy Daily Note ---
PT Daily Note-Current Subjective Patient agrees to PT. Mental Status Attachments: Oxygen Transfers SCALE: Activities may be completed with or without assistive devices. 3-Egavoeonry-aupaufm completes the activity by him/herself with no assistance from a helper. 5-Set-up or Clean-up Assistance-helper sets up or cleans up; patient completes activity. Avalon assists only prior to or following the activity. 4-Supervision or Touching Assistance-helper provides verbal cues and/or touching/steadying and/or contact guard assistance as patient completes activity. Assistance may be provided throughout the activity or intermittently. 3-Partial/Moderate Assistance-helper does LESS THAN HALF the effort. Avalon lifts, holds or supports trunk or limbs, but provides less than half the effort. 2-Substantial/Maximal Assistance-helper does MORE THAN HALF the effort. Avalon lifts or holds trunk or limbs and provides more than half the effort. 6-Kdehojsul-punqfy does ALL the effort. Patient does none of the effort to complete the activity. Or, the assistance of 2 or more helpers is required for the patient to complete the activity. If activity was not attempted, code reason: 7-Patient Refused. 9-Not Applicable-not attempted and the patient did not perform the activity before the current illness, exacerbation or injury. 10-Not Attempted due to Environmental Limitations-(lack of equipment, weather restraints, etc.). 88-Not Attempted due to Medical Conditions or Safety Concerns. Lying to Sitting/Side of Bed(Q: 4 Sit to Stand (QC): 4 Chair/Zcm-ze-Vyqxy Xfer(QC): 4 Gait Training Does the Patient Walk?: Yes Distance: 10' x 2 Walk 10 feet (QC): 4 Gait Assistive Device: None Exercises Seated Therapy Exercises: Ankle pumps, Long arc quads Seated Reps: 12 Assessment Patient up in recliner with breakfast in situ. Patient continues to require telesitter for patient safety. PT Short Term Goals Short Term Goals Time Frame: Jul 14, 2021 Roll Left & Right: 4 Sit to lyin Lying to sitting on side of be: 4 Sit to stand: 4 Chair/vsc-vw-cqezo transfer: 4 Toilet transfer: 4 Walk 10 feet: 4 Walk 50 feet with two turns: 3 PT Long-Term Goals Plastic Maker Goals PT Long-Term Goals Time Frame: Aug 18, 2021 Roll Left & Right (QC): 5 Sit to Lying (QC): 5 Lying-Sitting on Side/Bed(QC): 5 Sit to Stand (QC): 5 Chair/Epa-vu-Lvcjm Xfer(QC): 5 Toilet Transfer (QC): 5 Does the Patient Walk: Yes Walk 10 feet (QC): 5 Walk 50ft with 2 Turns (QC): 5 Walk 150 ft (QC): 5 1 Step (curb) (QC): 5 4 Steps (QC): 5 PT Plan Treatment/Plan Treatment Plan: Continue Plan of Care Treatment Plan: Bed Mobility, Concurrent Therapy, Education, Functional Activity Gracy, Functional Strength, Group Therapy, Gait, Safety, Therapeutic Exercise, Transfers Treatment Duration: Sep 15, 2021 Frequency: 6 times per week Estimated Hrs Per Day: .25 hour per day Time/GCodes Time In: 823 Time Out: 833 Total Billed Treatment Time: 10 Total Billed Treatment 1 visit FA 10 min MALIK BAILEY PT Jul 04, 2021 10:27
[2021-07-04] MEDS ORDERED: PRED10TA22 PO (12:10)
--- NOTE | 2021-07-04 12:32 | Discharge Summary ---
Discharge Summary Hospital Course Problems/Dx: (1) Acute on chronic diastolic heart failure Status: Acute (2) Acute on chronic respiratory failure with hypoxemia Status: Acute (3) Primary hypertension (4) Mixed hyperlipidemia (5) COPD (chronic obstructive pulmonary disease) Status: Acute Qualifiers: Qualified Codes: J44.1 - Chronic obstructive pulmonary disease with (acute) exacerbation (6) Obesity Status: Chronic Hospital Course Date of Admission: Jun 30, 2021 at 02:15 Admission Diagnosis: Acute respiratory failure with hypoxia due to CHF and COPD exacerbation Family Physician/Provider: Abelino Casanova DO Date of Discharge: 07/04/21 Discharge Diagnosis: Acute respiratory failure with hypoxia due to CHF and COPD exacerbation Hospital Course: Alex Brower is a 61-year-old male who was admitted with acute respiratory failure due to CHF and COPD exacerbation. He required Vapotherm initially. He was diuresed and responded well. He was also given a course of steroids. His oxygen requirement returned to his baseline 3 L. He was discharged back to [facility], [place] and rehab in stable condition. Labs and Pending Lab Test: Laboratory Tests 07/04/21 04:10: White Blood Count 8.6, Red Blood Count 5.67H, Hemoglobin 13.2L, Hematocrit 46, Mean Corpuscular Volume 81, Mean Corpuscular Hemoglobin 23L, Mean Corpuscular Hemoglobin Concent 29L, Red Cell Distribution Width 18.6H, Platelet Count 165, Mean Platelet Volume 10.3, Immature Granulocyte % (Auto) 0, Neutrophils (%) (Auto) 77H, Lymphocytes (%) (Auto) 15, Monocytes (%) (Auto) 8, Eosinophils (%) (Auto) 0, Basophils (%) (Auto) 0, Neutrophils # (Auto) 6.6, Lymphocytes # (Auto) 1.3, Monocytes # (Auto) 0.6, Eosinophils # (Auto) 0.0, Basophils # (Auto) 0.0, Immature Granulocyte # (Auto) 0.0, Sodium Level 133L, Potassium Level 5.1H, Chloride Level 87L, Carbon Dioxide Level 38H, Anion Gap 8, Blood Urea Nitrogen 17, Creatinine 0.85, Estimat Glomerular Filtration Rate 91, BUN/Creatinine Ratio 20, Glucose Level 110H, Calcium Level 8.3L, Corrected Calcium 8.9, Phosphorus Level 2.2L, Magnesium Level 1.9, Total Bilirubin 0.5, Aspartate Amino Transf (AST/SGOT) 17, Alanine Aminotransferase (ALT/SGPT) 8, Alkaline Phosphatase 50, Total Protein 6.3L, Albumin 3.3 Microbiology 06/30/21 MRSA Screen - Final, Complete MRSA not isolated Home Meds Active Prednisone 10 Mg Tab.ds.pk 10 Mg PO DAILY Take 6 tabs(60mg)daily,decrease by 1 tab(10MG)daily. Reported Tussin Cough (Dextromethorphan HBr) 15 Mg/5 Ml Liquid 10 Ml PO Q12H PRN Lisinopril 10 Mg Tablet 10 Mg PO DAILY HOLD IF BP IS LESS THEN 100/60 OR AP IS LESS THAN 60 BPM Escitalopram Oxalate 20 Mg Tablet 30 Mg PO DAILY TAKES 1 & (20MG) TABS Abilify (Aripiprazole) 15 Mg Tablet 15 Mg PO DAILY Tylenol (Acetaminophen) 325 Mg Tablet 650 Mg PO Q4H PRN Debrox (Carbamide Peroxide) 15 Ml Drops 5 Drops EACH EAR Q12H PRN Multi-Vitamin Daily (Multivitamin) 1 Each Tablet 1 Tab PO DAILY Zofran (Ondansetron HCl) 4 Mg Tab 4 Mg PO Q4H PRN Refresh Tears (Carboxymethylcellulose Sodium) 15 Ml Drops 1 Drop OU Q4H PRN Clonazepam 0.5 Mg Tablet 0.5 Mg PO BID Divalproex Sodium 125 Mg Cap.sprink 125 Mg PO 0900,1300,1700 Benzonatate 200 Mg Capsule 200 Mg PO TID Symbicort 160-4.5 Mcg Inhaler (Budesonide/Formoterol Fumarate) 10.2 Gm Hfa.aer.ad 2 Puff IH BID RINSE MOUTH WITH WATER AND SPIT AFTER EACH USE Protonix (Pantoprazole Sodium) 40 Mg Tablet.dr 40 Mg PO DAILY Metoprolol Tartrate 25 Mg Tablet 25 Mg PO BID HOLD FOR SBP <100 Lasix (Furosemide) 20 Mg Tablet 20 Mg PO DAILY Iprat-Albut 0.5-3(2.5) mg/3 ml (Ipratropium/Albuterol Sulfate) 3 Ml Ampul.neb 3 Ml NEB Q6H PRN Aspirin EC (Aspirin) 81 Mg Tablet. 81 Mg PO DAILY Assessment/Pt Instructions Take medications as prescribed. Follow-up with your primary care physician. Return with worsening shortness of breath or if you like you are getting worse. Discharge Planning: <30 minutes discharge planning Discharge Instructions Discharge Diet: Low Sodium Diet Activity as Tolerated: Yes Discharge Physical Examination Vital Signs Vital Signs Date Time Temp Pulse Resp B/P (MAP) Pulse Ox O2 Delivery O2 Flow Rate FiO2 07/04/21 11:25 35.0 57 20 115/66 96 High Flow N/C 2.00 07/03/21 10:28 55 General Appearance: No Apparent Distress, Obese Respiratory: Lungs Clear, Normal Breath Sounds, No Respiratory Distress Cardiovascular: Regular Rate, Rhythm, No Edema, No Murmur Gastrointestinal: Normal Bowel Sounds, Non Tender, Soft Extremity: Normal Inspection, Non Tender, No Pedal Edema Skin: Normal Color, Warm/Dry Neurologic/Psychiatric: Alert, Oriented x3, No Motor/Sensory Deficits, Normal Mood/Affect Allergies: Coded Allergies: No Known Drug Allergies (Unverified , 03/09/19) Copy Copies To 1: ABELINO CASANOVA DO Discharge Summary Date of Admission Jun 30, 2021 at 02:15 Date of Discharge Discharge Date: Jul 04, 2021 Discharge Time: 12:16 Admission Diagnosis Acute on Chronic hypoxic respiratory failure due to CHF exacerbation Comfort Measures/ Time spent on discussion (min): 0 Discharge Diagnosis Acute on chronic hypoxic respiratory failure Acute on chronic HFpEF COPD with acute exacerbation (1) Acute on chronic diastolic heart failure Status: Acute (2) Acute on chronic respiratory failure with hypoxemia Status: Acute (3) Primary hypertension (4) Mixed hyperlipidemia (5) COPD (chronic obstructive pulmonary disease) Status: Acute Qualifiers: Qualified Codes: J44.1 - Chronic obstructive pulmonary disease with (acute) exacerbation (6) Obesity Status: Chronic AMANDA FIERRO MD Jul 04, 2021 12:17
--- NOTE | 2021-07-04 12:58 | ST Dysphagia Evaluation ---
Speech Evaluation-General Medical Diagnosis MH of CHF, COPD, HTN, GERD, depression, and bipolar disorder, hypoxia Onset Date: Jun 29, 2021 Medical History Pertinent Medical History: COPD, GERD, HTN, Smoking Social History Current Living Status: Alone Speech PLF/Current-Dysphagia Subjective The pt was sitting in recliner roldan. Pleasant and cooperative for dysphagia evaluation. Cognitive Status Patient Orientation: Person Oral Motor Skills Dentition: Edentalous Current Food Consistancy: Mechanical Soft, Thin Liquids Ability to Follow Directions: Fair Face Facial Symmetry: Symmetrical Oral-Facial Assessment Smile: Normal Lingual Strength: Abnormal Volitional Dry Swallow: Yes Voluntary Cough: Yes Can Clear Throat Volitionally: Yes Productive Cough: Yes Dysphagia Evaluation Consistencies Presented: Thin Liquid, Mechanical Soft, Pureed Dietary Recommendations: Mechanical Soft Liquid Recommendations: Thin Swallowing Precautions: Decreased Rate of Oral Intake, Small Bites and Sips, S itting Upright 90 Degrees, Sitting 90 Degrees 30 Post Intake Dysphagia Evaluation Summary Pt presents with increased mastication time d/t edentulous state. Pt required cues to take small bites, education provided for swallow strategies. No overt s/s of aspiration/penetration. READING INTERVENTIONIST recommends soft diet /thin liquids d/t being edentulous. Speech Short Term Goals Short Term Goals Short Term Goals no goals at this time. No speech therapy required. Speech-Plan Treatment Plan Speech Therapy Treatment Plan: Discontinue ST Frequency: Modified Program (IRF) Estimated Hrs Per Day: Other Rehab Potential: Fair Time Speech Therapy Time In: 10:03 Speech Therapy Time Out: 10:20 Billed Treatment Time 17 mins [address] Jul 04, 2021 12:58
--- NOTE | 2021-07-04 14:14 | Diagnostic Imaging Report ---
INDICATION: Cough. TIME OF EXAM: 1:18 PM. COMPARISON: Correlation is made with the prior chest from 04/15/2019. FINDINGS: Heart size is stable. Lungs are clear. There is no effusion or pneumothorax. There are old right-sided rib fractures. IMPRESSION: No acute cardiopulmonary process is detected. Dictated by: Dictated on workstation # [id number]
--- NOTE | 2021-07-04 16:31 | CONSULTATION REPORT ---
DATE OF SERVICE: 07/03/2021 ATTENDING PHYSICIAN: Dr. Alberts. SUMMARY: This is a 61-year-old white man with multiple medical and psychiatric disorders with a Aguilar catheter. Apparently, he tugged on the catheter, has had some hematuria after that. The catheter was removed and he was voiding well with no problem, no hematuria. I reviewed his history and physical. IMPRESSION: Posttraumatic hematuria. PLAN: Observe, if recurrence later on, to contact the office for workup. CC: Dr. Alberts - requested, unable to deliver. CC: Dr. Nolasco - requested, unable to deliver. Job ID: [id number] DocumentID: [id number] Dictated Date: 07/04/2021 11:56:39 Power System Electrical Engineer Date: 07/04/2021 12:40:15 Dictated By: VISHAL HUDSON MD
[2021-07-04] MEDS ORDERED: FUROSEMIDE 40 MG/4 ML INJ (LASIX) IVP SCH (17:00)
== END 2021-07-04 16:30 | DRG 291 ==
LOC: ER 00:44 → ICU 02:15 → CSD 18:03 → 4TH 07-01 14:59
PROVIDERS: ADMIT Internal Medicine; ATTEND Internal Medicine
PROC: 5A09357 Assistance with Respiratory Ventilation, Less than 24 Consecutive Hours, Continuous Positive Airway Pressure (ICD-10-PCS; principal; 2021-06-30)
DX: I11.0 Hypertensive heart disease with heart failure (principal); J96.21 Acute and chronic respiratory failure with hypoxia; J44.1 Chronic obstructive pulmonary disease with (acute) exacerbation; I50.33 Acute on chronic diastolic (congestive) heart failure; Z79.82 Long term (current) use of aspirin; Z79.899 Other long term (current) drug therapy; K21.9 Gastro-esophageal reflux disease without esophagitis; F41.9 Anxiety disorder, unspecified; I25.10 Atherosclerotic heart disease of native coronary artery without angina pectoris; F31.9 Bipolar disorder, unspecified; E66.9 Obesity, unspecified; Z68.34 Body mass index [BMI] 34.0-34.9, adult; R00.1 Bradycardia, unspecified; B19.20 Unspecified viral hepatitis C without hepatic coma; E78.2 Mixed hyperlipidemia; Z20.822 Contact with and (suspected) exposure to COVID-19; R31.9 Hematuria, unspecified
CPT/HCPCS: 36415; 71045; 71046; 80053; 80061; 82805; 83735; 83880; 84100; 84145; 84484; 85025; 86141; 87081; 87636; 93005; 93306; 94640; 94660; 94760; 96374